=== PATIENT | male | born 1950 | race Caucasian/White ===

== ENCOUNTER 2018-02-24 17:59 | Emergency (ER) | payer MEDICARE, OTHER, SELFPAY ==
[2018-02-24 18:00] VITALS: BP 193/95; PULSE 68; RESP 18; TEMP 36.1; O2SAT 97; BMI 47.3
--- NOTE | 2018-02-24 18:25 | RAD_ITS ---
STUDY: X-RAY - RIGHT FOOT CLINICAL: Male, 67 years old. PAIN AND INFECTION TO RIGHT PLANTAR SURFACE FROM PUNCTURE WOUND TECHNIQUE: 3 view(s) of the foot. COMPARISON: None. FINDINGS: There is a calcaneal spur. Normal visualized subtalar, talonavicular, calcaneocuboid, tarsal and tarsometatarsal articulations. Erosive changes of the base of the second third and fourth metatarsal bone. This appears chronic. There is degenerative arthrosis of the metatarsophalangeal joint of the hallux . Normal tibial and fibular sesamoid bones. Normal interphalangeal joint of the great toe. There is a lucency through the base of the first distal phalanx. This may suggest a nondisplaced fracture. There is overlying soft tissue swelling. Normal second through fifth metatarsophalangeal joints. Normal interphalangeal joints and phalanges of the lesser toes. The soft tissue structures are unremarkable. RAD/Foot min 3 Views IMPRESSION: There is degenerative arthrosis of the metatarsophalangeal joint of the hallux . There is a lucency through the base of the first distal phalanx. This may suggest a nondisplaced fracture. There is overlying soft tissue swelling. Electronically Signed: Vidal Rea MD at 19:06 EDT , Service support ,
[2018-02-24] MEDS: Diphth,Pertuss(Acell),Tet Vac 0.5 ML Vial IM (18:56)
[2018-02-24 19:15] LABS: Absolute Lymphocyte Count 1.57 X10^3/ul (0.83-4.51); Basophil# 0.02 X10^3/uL; Basophil% 0.4 % (0-1); Eosinophil# 0.14 X10^3/uL; Eosinophils% 2.6 % (0-5); Hematocrit 43.3 % (40-54); Hemoglobin 13.7 g/dl (13.0-16.5); Lymphocyte # 1.57 X10^3/ul (4.0); Lymphocyte % 29.2 % (19-41); Mean Corp Hgb Conc 31.6 g/gl (32-36); Mean Corpuscular Hgb 28.5 pg (27.0-32.0); Mean Platelet Vol. 10.9 fl (6.2-12.0); Monocyte# 0.61 X10^3/uL; Monocyte% 11.3 % (0-10); Neutrophil # 3.03 X10^3/uL (2.7-7.7); Neutrophil % 56.3 % (47-70); POSITIVE COUNT NO; POSITIVE DIFFERENTIAL NO; POSITIVE MORPHOLOGY NO; Platelet Count 162 K/mm3 (150-450); RBC Distribution Width CV 14.8 % (11.6-14.6); RBC Distribution Width SD 48.2 fl (35.1-43.9); Red Blood Count 4.81 M/mm3 (4.6-6.2); White Blood Count 5.4 K/mm3 (4.4-11.0)
[2018-02-24 19:19] LABS: Anion Gap 7 (5-15); BUN 24 mg/dL (7-18); BUN/Creat Ratio 21.2 RATIO (10-20); Calcium,Total 8.8 mg/dL (8.5-10.1); Chloride 104 mmol/L (98-107); Creatinine, Serum 1.13 mg/dL (0.70-1.30); EST Glomerular Filtration Rate 69 mL/min (>60); Est Glom Filt Rate - Afr Amer 83 mL/min (>60); Estimated Creatinine Clearance 70.58 ml/min; Glucose 92 mg/dL (74-106); Potassium 3.5 mmol/L (3.5-5.1); Sodium Level 139 mmol/L (136-145)
--- NOTE | 2018-02-24 19:33 | ED.VISSUMM ---
- ER Visit Summary Date of Service: 02/24/18 Chief Complaint: Right foot pain after stepping on a deer horn 3 weeks ago History of Present Illness: The patient is a 67 M who presents because of the redness arch of his right foot after stepping on a deer horn 3 weeks ago. He denies fever, chills or night sweats. There is history rheumatic fever and he has aortic stenosis. He is on no immunosuppressive meds. He is not diabetic. He does report allergy to Bactrim as well as penicillin. Physical Examination: Vital signs noted. Afebrile. There is an abscess plantar surface right foot, arch. There is surrounding cellulitis with mild lymphangitis. There is no popliteal or inguinal lymphadenopathy. Heart is regular with a systolic murmur heard best over the aortic listening area with mild radiation into the neck. Lungs are clear to auscultation. DP pulses palpable. Please read written note for complete detail Test Results: Three-view x-ray of the foot was obtained interpreted by me as negative for foreign body or fracture. There is osteoarthritis. Emergency Department Course and Treatment: X-ray was obtained to evaluate for retained foreign body. The foot was prepped draped sterile manner. The area was anesthetized with 1% lidocaine by local infiltration and field block. Incision was made with odiferous purulent drainage noted. Blunt dissection was undertaken. Cavity was irrigated. Wick was placed. Treatment Plan: Because patient has allergy to penicillin and sulfa he was treated with clindamycin 300 mg 4 times a day. Disposition: Discharged to home with wound follow-up Tuesday and removal of wick. Impression: Abscess plantar surface right foot with surrounding cellulitis and lymphangitis initial encounter I&D foot abscess, complex This note was generated with [employer] dictation software. It may contain incorrect words, spelling, and punctuation that were not noted in review of the chart prior to signing ED Disposition - Plan for ED Patient: Disposition: Home or Assisted Living Chief Complaint: Cellulitis Instructions: ED Abscess IandD, Discharge Instructions for Cellulitis Prescriptions: Clindamycin HCl [Cleocin] 300 mg PO Q6H #28 capsule Referrals: Levar Reynaga DO [Primary Care Provider] - 2 Days for wound check Additional Instructions: Your prescription was electronically transmitted to [facility]
[2018-02-24 20:00] VITALS: BP 146/84; PULSE 79; RESP 18; O2SAT 95
[2018-02-24] MEDS: Clindamycin HCl 150 MG Capsule 300 MG PO (20:01)
== END 2018-02-24 20:02 | disposition home or self-care (01) ==
PROVIDERS: Emergency Provider Emergency Medicine; Family Provider Family Medicine; PCP Family Medicine
DX: L02.611 Cutaneous abscess of right foot (principal); L03.115 Cellulitis of right lower limb; I89.1 Lymphangitis; I35.0 Nonrheumatic aortic (valve) stenosis; R01.1 Cardiac murmur, unspecified; E66.9 Obesity, unspecified; M19.071 Primary osteoarthritis, right ankle and foot; I25.10 Atherosclerotic heart disease of native coronary artery without angina pectoris; I10 Essential (primary) hypertension; E78.00 Pure hypercholesterolemia, unspecified; I48.91 Unspecified atrial fibrillation; Z79.82 Long term (current) use of aspirin; Z79.01 Long term (current) use of anticoagulants; Z79.899 Other long term (current) drug therapy; Z72.0 Tobacco use
CPT/HCPCS: 10061; 10060; 73630; 80048; 85025; 90715; 99284

== ENCOUNTER → 2018-05-22 08:06 | Outpatient (CLI) | payer MEDICARE, OTHER, SELFPAY ==
[2018-05-22 10:20] LABS: AST(SGOT) 31 U/L (15-37); Alanine Aminotransfer ALT/SGPT 34 U/L (16-61); Albumin, Serum 3.6 g/dL (3.2-5.0); Alkaline Phosphatase 60 U/L (45-117); Bilirubin, Direct 0.09 mg/dL (0.00-0.30); CPK Total, Creatine Kinase 118 U/L (39-308); Creatinine, Serum 1.16 mg/dL (0.70-1.30); EST Glomerular Filtration Rate 67 mL/min (>60); Est Glom Filt Rate - Afr Amer 81 mL/min (>60); Globulin 3.8 g/dL (2.2-4.2); Protein, Total 7.4 g/dL (6.4-8.2)
[2018-05-23 16:49] LABS: Aldolase 5.2 U/L (3.3-10.3)
--- OUTSIDE RECORDS SUMMARY | 2018-07-24 15:37 | XMS RPT_ITS ---
:1950 Author Organization OHIP Care Team Providers Name Role Phone LEVAR REYNAGA DO Attending Unavailable LEVAR REYNAGA DO Primary Care Unavailable ANYA BAPTISTE DO Attending Unavailable DEAN DO, LEVAR D Primary Care Unavailable ARJUN BALLARD Attending Unavailable DEAN DO, LEVAR D Primary Care Unavailable ANYA BAPTISTE DO Attending Unavailable DEAN DO, LEVAR D Primary Care Unavailable MIGUEL PRATT Referring Unavailable MIGUEL PRATT Referring Unavailable MIGUEL PRATT Attending Unavailable AMMON CAI () Referring Unavailable NEHEMIAH, CORTNEY ESQUIVEL Admitting Unavailable NEHEMIAH, CORTNEY PA Attending Unavailable NEHEMIAH, CORTNEY PA Primary Care Unavailable NEHEMIAH, CORTNEY PA Admitting Unavailable NEHEMIAH, CORTNEY PA Attending Unavailable NEHEMIAH, CORTNEY PA Primary Care Unavailable CHAPIS BLANCAS Attending Unavailable CHAPIS BLANCAS Referring Unavailable Levar Reynaga Primary Care Unavailable DOCTOR, OUT OF TOWN Attending Unavailable Levar Reynaga Primary Care Unavailable Levar Reynaga Primary Care Unavailable Friend, Antonio Attending Unavailable PROBLEMS PROBLEMS DATE TYPE CONDITION / CODE ATTENDING STATUS SOURCE 05/22/2018 Unknown M79.10 - Myalgia, CHAPIS BLANCAS Active [place] unspecified site / Community M79.10(ICD-10) Hospital Repository 05/22/2018 Unknown R94.5 - Abnormal CHAPIS BLANCAS Active [facility] results of liver Community function studies / Hospital R94.5(ICD-10) Repository 05/22/2018 Unknown R94.4 - Abnormal CHAPIS BLANCAS Active [facility] results of kidney Community function studies / Hospital R94.4(ICD-10) Repository 11/24/2017 Admitting Pure DEAN DO, Active [facility] Diagnosis hypercholesterolemia LEVAR [facility] , unspecified / Repository E78.00(ICD-10) 11/14/2017 Active Unknown / JAMES Active [place] UNK(Unknown) MIGUEL L [facility] [place] Repository 11/14/2017 Active 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 / I25.10(ICD-10) 11/11/2017 Active 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 / [place] Z95.2(ICD-10) Repository 11/09/2017 Admitting Persons encountering CORTNEY CERNA Active [facility] in [facility] other specified Hospital circumstances / Repository Z7689(ICD-10) 11/09/2017 Principle Persons encountering NEHEMIAH, CORTNEY Active [facility] in [facility] other specified Hospital circumstances / Repository Z7689(ICD-10) PROCEDURES PROCEDURES No Procedure Records FoundRESULTS RESULTS LIVER PROFILE Collected: 05/22/2018 Status: F Source: [place] 8:19 AM [facility] REPOSITORY TYPE CODE TESTS RESULT OUT OF RANGE REFERENCE UNITS LAB L501.1500 6.4-8.2 g/dL Normal T PROT 7.4 LAB L501.1800 3.2-5.0 g/dL Normal ALB 3.6 LAB L501.1950 2.2-4.2 g/dL Normal GLOB 3.8 LAB L501.4100 15-37 U/L Normal AST 31 Result Comment: Slight Hemolysis, Result may be falsely increased. LAB L501.4305 45-117 U/L Normal ALK P 60 LAB L501.4405 16-61 U/L Normal ALT 34 LAB L501.4600 0.20-1.00 mg/dL Normal T BILI 0.40 LAB L501.4700 0.00-0.30 mg/dL Normal D BILI 0.09 Performed By: #### L500.3400, L501.1105, L501.3620 #### [facility] [address] [place], [place], [id number] SERUM CREATININE AND Collected: 05/22/2018 Status: F Source: [place] GFR 8:19 AM [facility] REPOSITORY TYPE CODE TESTS RESULT OUT OF RANGE REFERENCE UNITS LAB L501.1100 0.70-1.30 mg/dL Normal 1.16 CREAT,SERUM Result Comment: The validity of the calculated GFR AND GFRAA in patients over 70 years has not been determined. Clinical correlation is essential. LAB L501.1110 >60 mL/min Normal EST GFR 67 Result Comment: Non- GFR Calc LAB L501.1115 >60 mL/min Normal EST GFR - AA 81 Result Comment: GFR Calc Performed By: #### L500.3400, L501.1105, L501.3620 #### [facility] [address] [place], [place], [id number] CPK TOTAL, CREATINE Collected: 05/22/2018 Status: F Source: [place] KINASE 8:19 AM [facility] REPOSITORY TYPE CODE TESTS RESULT OUT OF RANGE REFERENCE UNITS LAB L501.3620 39-308 U/L Normal CPK TOTAL 118 Performed By: #### L500.3400, L501.1105, L501.3620 #### [facility] [place], [address] ALDOLASE Collected: 05/22/2018 Status: F Source: [place] 8:19 AM [facility] REPOSITORY TYPE CODE TESTS RESULT OUT OF RANGE REFERENCE UNITS LAB L3100.7000 3.3-10.3 U/L Normal ALDOLASE 2030 5.2 Result Comment: Performed at: - [facility] [id number] Director [place] Sales: Kvng Hanks PhD, Phone: [phone] Performed By: #### L3100.7000 #### [facility] (refer to report for specific site) refer to report for address and phone number CT ABDOMEN/PELVIS Observed: 05/15/2018 Status: F Source: JAMI W/CONTRAST 12:59 PM [facility] REPOSITORY ORIGINAL CT ABDOMEN/PELVIS W/CONTRAST CLINICAL STATEMENT: hematochezia COMPARISON: None FINDINGS: This exam was performed according to our departmental dose- optimization program which includes automated exposure control, adjustment of the mA and/or kVp according to patient size and/or use of iterati ve reconstruction technique where applicable. The lung bases are clear. There is a small hiatal hernia. No suspicious findings seen of the unenhanced liver. The gallbladder, pancreas, adrenal glands and spleen appear unremarkable. No radiodense calculus or obstructive uropathy seen. No suspicious renal lesions. There is no filling defect in the bladder. There is no inflammation identified of the colon or the small bowel. Fat-containing hernia noted near the umbilicus. There are bilateral fat-containing hernias A LEFT hip arthroplasty visualized. There is no destructive osseous lesion. Degenerative changes seen in the spine and sacroiliac joints. IMPRESSION: 1. The cause for the hematochezia is not visualized on the current exam. CT is not a sensitive evaluation for colon neoplasms. 2. No inflammatory process of the bowel 3. Other incidental findings, as above Interpreted By: Kelton Reed MD Preliminary Report By: Kelton Reed MD Electronically Signed By: Kelton Reed MD Dictated Date: 05/15/2018 2:10:03 PM Prelim Date: 05/15/2018 2:10:03 PM Sign Date: 05/15/2018 2:14:17 PM .GFR Collected: 05/15/2018 Status: F Source: [facility] 11:55 AM [facility] REPOSITORY TYPE CODE TESTS RESULT OUT OF REFERENCE UNITS RANGE LAB GFRAA(LOINC ml/min/1.73 ) sqm GFR 73 Mauritian Result Comment: GFR Population mean for , Non- Americans Ages 20-29 = 116 mL/min/1.73 sq.m. Ages 30-39 = 107 mL/min/1.73 sq.m. Ages 40-49 = 99 mL/min/1.73 sq.m. Ages 50-59 = 93 mL/min/1.73 sq.m. Ages 60-69 = 85 mL/min/1.73 sq.m. Ages 70+ = 75 mL/min/1.73 sq.m. Chronic Kidney Disease: Less than 60 mL/min/1.73 square meters End Stage Renal Disease: Less than 15 mL/min/1.73 square meters LAB GFRNO(LOINC) ml/min/1.73sqm GFR Non- 61 Result Comment: GFR Population mean for , Non- Americans Ages 20-29 = 116 mL/min/1.73 sq.m. Ages 30-39 = 107 mL/min/1.73 sq.m. Ages 40-49 = 99 mL/min/1.73 sq.m. Ages 50-59 = 93 mL/min/1.73 sq.m. Ages 60-69 = 85 mL/min/1.73 sq.m. Ages 70+ = 75 mL/min/1.73 sq.m. Chronic Kidney Disease: Less than 60 mL/min/1.73 square meters End Stage Renal Disease: Less than 15 mL/min/1.73 square meters Performed By: #### GFR, URIC, CMP, MG, VIDH, ESR, CRP, ASON, BENJAMÍN, RF #### [address] [address] URIC Collected: 05/15/2018 Status: F Source: [facility] 11:55 AM [facility] REPOSITORY TYPE CODE TESTS RESULT OUT OF RANGE REFERENCE UNITS LAB URIC(LOINC) 3.5-7.2 mg/dL High Uric Acid 7.5 Lvl Performed By: #### GFR, URIC, CMP, MG, VIDH, ESR, CRP, ASON, BENJAMÍN, RF #### [address] [address] CMP Collected: 05/15/2018 Status: F Source: [facility] 11:55 AM [facility] REPOSITORY TYPE CODE TESTS RESULT OUT OF REFERENCE UNITS RANGE LAB GLU(LOINC) 80-115 mg/dL Glucose Level 101 LAB NA(LOINC) 136-145 mmol/L Sodium Level 141 LAB K(LOINC) 3.5-5.1 mmol/L Potassium Level 4.4 LAB CL(LOINC) 98-107 mmol/L Chloride 103 LAB CO2(LOINC) 23-31 mmol/L CO2 High 32 LAB EBAL(LOINC mEq/L ) Electrolyte Balance 6.0 LAB BUN(LOINC) 7-18 mg/dL BUN High 25 LAB CRE(LOINC) 0.70-1.30 mg/dL Creatinine Lvl (s) 1.20 Result Comment: Called result to Johnna in Radiology @05/15/2018 12:19:25 EST LAB BC(LOINC) 7-27 ratio BUN/Creatinine Ratio 21 LAB CA(LOINC) 8.4-10.2 mg/dL Calcium Lvl 9.5 LAB PROT(LOINC) 6.4-8.2 G/dL Total Protein 7.0 LAB ALB(LOINC) 3.4-4.8 G/dL Albumin Level 3.8 LAB GLB(LOINC) G/dL Globulin 3.2 LAB AG(LOINC) 1.1-2.5 ratio A/G Ratio 1.2 LAB BILT(LOINC) 0.2-1.0 mg/dL Bili Total 0.7 LAB AP(LOINC) 40-135 U/L Alk Phos 55 LAB AST(LOINC) 10-40 U/L AST/SGOT 25 LAB ALT(LOINC) 10-35 U/L ALT/SGPT High 37 Performed By: #### GFR, URIC, CMP, MG, VIDH, ESR, CRP, ASON, BENJAMÍN, RF #### [address] [address] MG Collected: 05/15/2018 Status: F Source: [facility] 11:55 AM [facility] REPOSITORY TYPE CODE TESTS RESULT OUT OF REFERENCE UNITS RANGE LAB MG(LOINC) 1.8-2.4 mg/dL Magnesium Lvl 2.3 Performed By: #### GFR, URIC, CMP, MG, VIDH, ESR, CRP, ASON, BENJAMÍN, RF #### [place] [address] VIDH Collected: 05/15/2018 Status: F Source: [facility] 11:55 AM [facility] REPOSITORY TYPE CODE TESTS RESULT OUT OF RANGE REFERENCE UNITS LAB VIDH(LOINC) ng/mL Vit. D 26 25-Hydroxy Result Comment: Interpretive Values Based on Total 25(OH)D: Severe Deficiency <20 ng/mL Mild to Moderate Deficiency 20-30 ng/mL Optimum Levels 30-100 ng/mL Toxicity Possible >100 ng/mL Performed By: #### GFR, URIC, CMP, MG, VIDH, ESR, CRP, ASON, BENJAMÍN, RF #### [place] [address] ESR Collected: 05/15/2018 Status: F Source: [facility] 11:55 AM [facility] REPOSITORY TYPE CODE TESTS RESULT OUT OF REFERENCE UNITS RANGE LAB ESR(LOINC) 0-20 mm/hr Erythrocyte Sed Rate 6 Performed By: #### GFR, URIC, CMP, MG, VIDH, ESR, CRP, ASON, BENJAMÍN, RF #### [place] [address] CRP Collected: 05/15/2018 Status: F Source: [facility] 11:55 AM [facility] REPOSITORY TYPE CODE TESTS RESULT OUT OF REFERENCE UNITS RANGE LAB CRP(LOINC) <=0.80 mg/dL High C-Reactive 2.93 Protein Performed By: #### GFR, URIC, CMP, MG, VIDH, ESR, CRP, ASON, BENJAMÍN, RF #### [place] [address] ASON Collected: 05/15/2018 Status: F Source: [facility] 11:55 AM [facility] REPOSITORY TYPE CODE TESTS RESULT OUT OF RANGE REFERENCE UNITS LAB ASO(LOINC) <=116 IU/mL High ASO 209 Performed By: #### GFR, URIC, CMP, MG, VIDH, ESR, CRP, ASON, BENJAMÍN, RF #### [place] [address] BENJAMÍN Collected: 05/15/2018 Status: F Source: [facility] 11:55 AM [facility] REPOSITORY TYPE CODE TESTS RESULT OUT OF RANGE REFERENCE UNITS LAB BENJAMÍN(LOINC) Neg 40 BENJAMÍN Neg 40 Performed By: #### GFR, URIC, CMP, MG, VIDH, ESR, CRP, ASON, BENJAMÍN, RF #### [place] [id number] [address] [place] [address] RF Collected: 05/15/2018 Status: F Source: [facility] 11:55 AM [facility] REPOSITORY TYPE CODE TESTS RESULT OUT OF REFERENCE UNITS RANGE LAB RF(LOINC) Rheumatoid <6.0 Factor Result Comment: RF IgM Antibody by Enzyme Immunoassay: Negative < or = 6 Positive > 6 A positive result indicates the presence of RF antibodies and suggests the possibility of rheumatoid arthritis. A negative result indicates no RF IgM antibody or levels below the negative cut-off of the assay. Results of this assay should be used in conjunction with clinical findings and other serological tests. These results were obtained with the [employer] QUANTA Lite RF IgM SULLY. RF IgM values obtained with different manufacturers' assay methods may not be used interchangeably. The magnitude of the reported IgM levels cannot be correlated to an endpoint titer. Performed By: #### GFR, URIC, CMP, MG, VIDH, ESR, CRP, ASON, BENJAMÍN, RF #### [place] [address] URIC Collected: 04/29/2018 Status: F Source: [facility] 10:40 AM [facility] REPOSITORY TYPE CODE TESTS RESULT OUT OF RANGE REFERENCE UNITS LAB URIC(LOINC) 3.5-7.2 mg/dL High Uric Acid 8.3 Lvl Performed By: #### URIC, CMP, GFR, MG, VIDH, RF, CRP, ASON, BENJAMÍN #### [place] [address] CMP Collected: 04/29/2018 Status: F Source: [facility] 10:40 AM [facility] REPOSITORY TYPE CODE TESTS RESULT OUT OF REFERENCE UNITS RANGE LAB GLU(LOINC) 80-115 mg/dL Glucose Level 95 LAB NA(LOINC) 136-145 mmol/L Sodium Level 139 LAB K(LOINC) 3.5-5.1 mmol/L Potassium Level 4.2 LAB CL(LOINC) 98-107 mmol/L Chloride 101 LAB CO2(LOINC) 23-31 mmol/L CO2 29 LAB EBAL(LOINC mEq/L ) Electrolyte Balance 9.0 LAB BUN(LOINC) 7-18 mg/dL BUN High 26 LAB CRE(LOINC) 0.70-1.30 mg/dL Creatinine High Lvl (s) 1.38 LAB BC(LOINC) 7-27 ratio BUN/Creatinine 19 Ratio LAB CA(LOINC) 8.4-10.2 mg/dL Calcium Lvl 9.4 LAB PROT(LOINC 6.4-8.2 G/dL ) Total Protein 7.2 LAB ALB(LOINC) 3.4-4.8 G/dL Albumin Level 3.8 LAB GLB(LOINC) G/dL Globulin 3.4 LAB AG(LOINC) 1.1-2.5 ratio A/G Ratio 1.1 LAB BILT(LOINC 0.2-1.0 mg/dL ) Bili Total 0.8 LAB AP(LOINC) 40-135 U/L Alk Phos 72 LAB AST(LOINC) 10-40 U/L AST/SGOT 39 LAB ALT(LOINC) 10-35 U/L ALT/SGPT High 44 Performed By: #### URIC, CMP, GFR, MG, VIDH, RF, CRP, ASON, BENJAMÍN #### [place] [address] .GFR Collected: 04/29/2018 Status: F Source: [facility] 10:40 AM [facility] REPOSITORY TYPE CODE TESTS RESULT OUT OF REFERENCE UNITS RANGE LAB GFRAA(LOINC ml/min/1.73 ) sqm GFR 62 Mauritian Result Comment: GFR Population mean for , Non- Americans Ages 20-29 = 116 mL/min/1.73 sq.m. Ages 30-39 = 107 mL/min/1.73 sq.m. Ages 40-49 = 99 mL/min/1.73 sq.m. Ages 50-59 = 93 mL/min/1.73 sq.m. Ages 60-69 = 85 mL/min/1.73 sq.m. Ages 70+ = 75 mL/min/1.73 sq.m. Chronic Kidney Disease: Less than 60 mL/min/1.73 square meters End Stage Renal Disease: Less than 15 mL/min/1.73 square meters LAB GFRNO(LOINC) ml/min/1.73sqm GFR Non- 52 Result Comment: GFR Population mean for , Non- Americans Ages 20-29 = 116 mL/min/1.73 sq.m. Ages 30-39 = 107 mL/min/1.73 sq.m. Ages 40-49 = 99 mL/min/1.73 sq.m. Ages 50-59 = 93 mL/min/1.73 sq.m. Ages 60-69 = 85 mL/min/1.73 sq.m. Ages 70+ = 75 mL/min/1.73 sq.m. Chronic Kidney Disease: Less than 60 mL/min/1.73 square meters End Stage Renal Disease: Less than 15 mL/min/1.73 square meters Performed By: #### URIC, CMP, GFR, MG, VIDH, RF, CRP, ASON, BENJAMÍN #### [address] [address] MG Collected: 04/29/2018 Status: F Source: [employer] 10:40 AM [facility] REPOSITORY TYPE CODE TESTS RESULT OUT OF REFERENCE UNITS RANGE LAB MG(LOINC) 1.8-2.4 mg/dL Magnesium Lvl 2.0 Performed By: #### URIC, CMP, GFR, MG, VIDH, RF, CRP, ASON, BENJAMÍN #### [address] [address] VIDH Collected: 04/29/2018 Status: F Source: [employer] 10:40 AM [facility] REPOSITORY TYPE CODE TESTS RESULT OUT OF RANGE REFERENCE UNITS LAB VIDH(LOINC) ng/mL Vit. D 11 25-Hydroxy Result Comment: Interpretive Values Based on Total 25(OH)D: Severe Deficiency <20 ng/mL Mild to Moderate Deficiency 20-30 ng/mL Optimum Levels 30-100 ng/mL Toxicity Possible >100 ng/mL Performed By: #### URIC, CMP, GFR, MG, VIDH, RF, CRP, ASON, BENJAMÍN #### [address] [address] RF Collected: 04/29/2018 Status: F Source: [employer] 10:40 AM [facility] REPOSITORY TYPE CODE TESTS RESULT OUT OF REFERENCE UNITS RANGE LAB RF(LOINC) Rheumatoid <6.0 Factor Result Comment: RF IgM Antibody by Enzyme Immunoassay: Negative < or = 6 Positive > 6 A positive result indicates the presence of RF antibodies and suggests the possibility of rheumatoid arthritis. A negative result indicates no RF IgM antibody or levels below the negative cut-off of the assay. Results of this assay should be used in conjunction with clinical findings and other serological tests. These results were obtained with the [employer] QUANTA Lite RF IgM SULLY. RF IgM values obtained with different manufacturers' assay methods may not be used interchangeably. The magnitude of the reported IgM levels cannot be correlated to an endpoint titer. Performed By: #### URIC, CMP, GFR, MG, VIDH, RF, CRP, ASON, BENJAMÍN #### [place] [address] CRP Collected: 04/29/2018 Status: F Source: [facility] 10:40 AM [facility] REPOSITORY TYPE CODE TESTS RESULT OUT OF REFERENCE UNITS RANGE LAB CRP(LOINC) <=0.80 mg/dL High C-Reactive 0.82 Protein Performed By: #### URIC, CMP, GFR, MG, VIDH, RF, CRP, ASON, BENJAMÍN #### [place] [address] ASON Collected: 04/29/2018 Status: F Source: [facility] 10:40 AM [facility] REPOSITORY TYPE CODE TESTS RESULT OUT OF RANGE REFERENCE UNITS LAB ASO(LOINC) <=116 IU/mL High ASO 248 Performed By: #### URIC, CMP, GFR, MG, VIDH, RF, CRP, ASON, BENJAMÍN #### [place] [address] BENJAMÍN Collected: 04/29/2018 Status: F Source: [facility] 10:40 AM [facility] REPOSITORY TYPE CODE TESTS RESULT OUT OF RANGE REFERENCE UNITS LAB BENJAMÍN(LOINC) Neg 40 BENJAMÍN Neg 40 Performed By: #### URIC, CMP, GFR, MG, VIDH, RF, CRP, ASON, BENJAMÍN #### [place] [address] ESR Collected: 04/29/2018 Status: F Source: [facility] 10:40 AM [facility] REPOSITORY TYPE CODE TESTS RESULT OUT OF REFERENCE UNITS RANGE LAB ESR(LOINC) 0-20 mm/hr Erythrocyte Sed Rate 6 Performed By: #### ESR #### [facility] [address] [place] [address] EMERGENCY DEPARTMENT Observed: 02/24/2018 Status: F Source: [facility]ERE[facility] SUMMARY 7:39 PM [facility] REPOSITORY [facility] Medical Records Department [address] [place] [address] Emergency Department Summary 02/24/18 1933 MR#: [id number] Acct: [id number] Name: ALIREZA HILARIO Rep #: [id number] : 1950 67 From: Antonio Friend MD PCP: Levar Reynaga DO Status: REG ER - ER Visit Summary Date of Service: 02/24/18 Chief Complaint: Right foot pain after stepping on a deer horn 3 weeks ago History of Present Illness: The patient is a 67 M who presents because of the redness arch of his right foot after stepping on a deer horn 3 weeks ago. He denies fever, chills or night sweats. There is history rheumatic fever and he has aortic stenosis. He is on no immunosuppressive meds. He is not diabetic. He does report allergy to Bactrim as well as penicillin. Physical Examination: Vital signs noted. Afebrile. There is an abscess plantar surface right foot, arch. There is surrounding cellulitis with mild lymphangitis. There is no popliteal or inguinal lymphadenopathy. Heart is regular with a systolic murmur heard best over the aortic listening area with mild radiation into the neck. Lungs are clear to auscultation. DP pulses palpable. Please read written note for complete detail Test Results: Three-view x-ray of the foot was obtained interpreted by me as negative for foreign body or fracture. There is osteoarthritis. Emergency Department Course and Treatment: X-ray was obtained to evaluate for retained foreign body. The foot was prepped draped sterile manner. The area was anesthetized with 1% lidocaine by local infiltration and field block. Incision was made with odiferous purulent drainage noted. Blunt dissection was undertaken. Cavity was irrigated. Wick was placed. Treatment Plan: Because patient has allergy to penicillin and sulfa he was treated with clindamycin 300 mg 4 times a day. Disposition: Discharged to home with wound follow-up Tuesday and removal of wick. Impression: Abscess plantar surface right foot with surrounding cellulitis and lymphangitis initial encounter I AND D foot abscess, complex This note was generated with [employer] dictation software. It may contain incorrect words, spelling, and punctuation that were not noted in review of the chart prior to signing ED Disposition - Plan for ED Patient: Disposition: Home or Assisted Living Chief Complaint: Cellulitis Instructions: ED Abscess IandD, Discharge Instructions for Cellulitis Prescriptions: Clindamycin HCl [Cleocin] 300 mg PO Q6H #28 capsule Referrals: Levar Reynaga DO [Primary Care Provider] - 2 Days for wound check Additional Instructions: Your prescription was electronically transmitted to [facility] What to do if you have Problems For any increased pain, shortness of breath, bleeding, nausea or vomiting, chest pain, or any unexpected problems, contact your Primary Care Provider. Call [facility] ([phone]) or report to the closest Emergency Room. Call 911 if necessary. 02/24/181938 <Electronically signed by Antonio Friend MD> Date Antonio Friend MD Cosigner Signature (If Indicated): Date CC: Levar Reynaga DO CBC W/DIFF, AUTOMATED Collected: 02/24/2018 Status: F Source: [place] 6:55 PM [facility] REPOSITORY TYPE CODE TESTS RESULT OUT OF RANGE REFERENCE UNITS LAB L100.1000 4.4-11.0 K/mm3 Normal WBC 5.4 LAB L100.1200 4.6-6.2 M/mm3 Normal RBC 4.81 LAB L100.1300 13.0-16.5 g/dl Normal HGB 13.7 LAB L100.1400 40-54 % Normal HCT 43.3 LAB L100.1500 80-94 fL Normal MCV 90.0 LAB L100.1600 27.0-32.0 pg Normal MCH 28.5 LAB L100.1700 32-36 g/gl Low MCHC 31.6 LAB L100.1810 11.6-14.6 % High RDW CV 14.8 LAB L100.1820 35.1-43.9 fl High RDW SD 48.2 LAB L100.1900 150-450 K/mm3 Normal PLT 162 LAB L100.2000 6.2-12.0 fl Normal MPV 10.9 LAB L100.2100 47-70 % Normal NEUT% 56.3 LAB L100.2200 19-41 % Normal LY% 29.2 LAB L100.2300 0-10 % High MONO% 11.3 LAB L100.2400 0-5 % Normal EO% 2.6 LAB L100.2500 0-1 % Normal BASO% 0.4 LAB L100.2550 0.0-0.9 % Normal IM GRAN % 0.200 Result Comment: IG% - Immature Granulocytes (promyelocytes, myelocytes and metamyelocytes) > 1% indicates that a LEFT SHIFT is Present. LAB L100.2620 2.0-7.7 X10 3/uL Normal Absolute Neut 3.0 LAB L100.2720 0.83-4.51 X10 3/ul Normal Absolute Lymph 1.57 Performed By: #### L100.0100 #### [facility] [address] [place], [address] BASIC METABOLIC Collected: 02/24/2018 Status: F Source: [place] PROFILE ([facility]) 6:55 PM [facility] REPOSITORY TYPE CODE TESTS RESULT OUT OF RANGE REFERENCE UNITS LAB L501.0100 74-106 mg/dL Normal GLU 92 Result Comment: Please note revised GLUCOSE reference range effective 2017. LAB L501.1000 7-18 mg/dL High BUN 24 LAB L501.1100 0.70-1.30 mg/dL Normal CREAT,SERUM 1.13 Result Comment: The validity of the calculated GFR AND GFRAA in patients over 70 years has not been determined. Clinical correlation is essential. LAB L501.1110 >60 mL/min Normal EST GFR 69 Result Comment: Non- GFR Calc LAB L501.1115 >60 mL/min Normal EST GFR - AA 83 Result Comment: GFR Calc LAB L501.1255 ml/min Normal Estimated CRCL 70.58 LAB L501.1300 10-20 RATIO High BUN/CRE 21.2 LAB L501.2200 8.5-10 mg/dL Normal .1 CA 8.8 LAB L501.5300 136-14 mmol/L Normal 5 NA 139 LAB L501.5600 3.5-5. mmol/L Normal 1 K 3.5 LAB L501.5900 98-107 mmol/L Normal CL 104 LAB L501.6100 21.0-3 mmol/L Normal 2.0 CO2 28.0 LAB L501.6200 5-15 Normal GAP 7 Performed By: #### L500.2500 #### [facility] [address] [facility] [place], [address] FOOT MIN 3 VIEWS Observed: 02/24/2018 Status: F Source: [place] 6:24 PM [facility] REPOSITORY [facility] Imaging Services [address] [place] [address] Foot min 3 Views MR#: [id number] Acct: [id number] Name: ALIREZA HILARIO Rep #: [id number] : 1950 M 67 From: Vidal Rea MD PCP: Levar Reynaga DO Status: REG ER Study: Foot min 3 Views Date of Exam: 02/24/18 Exam# [id number] Ordering Dr: Antonio Friend MD STUDY: X-RAY - RIGHT FOOT CLINICAL: Male, 67 years old. PAIN AND INFECTION TO RIGHT PLANTAR SURFACE FROM PUNCTURE WOUND TECHNIQUE: 3 view(s) of the foot. COMPARISON: None. FINDINGS: There is a calcaneal spur. Normal visualized subtalar, talonavicular, calcaneocuboid, tarsal and tarsometatarsal articulations. Erosive changes of the base of the second third and fourth metatarsal bone. This appears chronic. There is degenerative arthrosis of the metatarsophalangeal joint of the hallux . Normal tibial and fibular sesamoid bones. Normal interphalangeal joint of the great toe. There is a lucency through the base of the first distal phalanx. This may suggest a nondisplaced fracture. There is overlying soft tissue swelling. Normal second through fifth metatarsophalangeal joints. Normal interphalangeal joints and phalanges of the lesser toes. The soft tissue structures are unremarkable. RAD/Foot min 3 Views IMPRESSION: There is degenerative arthrosis of the metatarsophalangeal joint of the hallux . There is a lucency through the base of the first distal phalanx. This may suggest a nondisplaced fracture. There is overlying soft tissue swelling. Electronically Signed: Vidal Rea MD at 19:06 EDT , Service support , CC: Levar Reynaga DO; Antonio Friend MD Behavioral Medical Director: Signed PROGRESS Observed: 12/07/2017 Status: COMPLETED Source: [place] 3:30 PM [facility] REPOSITORY HNO ID: [id number] Author: Robert (Clemente) Harper Service: (none) Author Type: Resident Type: Progress Notes Filed: 12/24/2017 1:14 PM Note Text: [facility] Initial Office Visit Consultation is requested by: SELF PCP: Levar Reynaga DO [address] [place] [address] CEREBROVASCULAR HISTORY History of Recent Event: Alireza Hilario is a 67 year old right-handed male with PMH of: - HTN, on Losartan 100mg / HCTZ 25mg / Metoprolol 25mg BID - Afib, on Eliquis 5mg BID / ASA 81mg - Aortic stenosis, s/p bovine AVR 01/2016 - CAD, s/p CABG x 3 - HLD, on Lipitor 40mg 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 He needs clearance for work. Date of last event: January 08, 2016 History of event: Acute onset fatigue, R leg weakness, R facial droop. 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 Has had no repeat stroke symptoms. Retired October. 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 The DOT is requesting clearance from Neurology. Questions for visit: Is he cleared for work - will need letter stating he may drive truck PAST MEDICAL HISTORY Diagnosis Date - Aortic valve stenosis aortic stenosis - Bleeding ulcer when patient was 17-18 years old - CAD (coronary artery disease) 08/16/13 - CVA (cerebral vascular accident) ([facility]) 01/08/16 s/p TPA - Dyslipidemia - History of left hip replacement - Hypertension PAST SURGICAL HISTORY Procedure Laterality Date - PAST SURGICAL HISTORY OF 2009 left inguinal hernia repair - PAST SURGICAL HISTORY OF 02/25/2016 aorticv valve replacement - PAST SURGICAL HISTORY OF 02/25/2016 CABG x 3 FAMILY HISTORY Problem Relation Age of Onset - other (heart attack) Father 47 age 55 - other (osteoarthritis) Mother age 95 - other (stents; pacemaker) Brother 56 alive age 66 - other (healthy) Sister Social History Marital status: Spouse name: Years of education: Number of children: Occupational History 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 hydroCHLOROthiazide (HYDRODIURIL, ESIDRIX) 25 mg tablet Take 1 tablet by mouth once daily. ELIQUIS 5 mg tab(s) Take 1 tablet by mouth twice daily. pantoprazole DR (PROTONIX) 40 mg tablet Take 40 mg by mouth once daily. diclofenac sodium (VOLTAREN) 1 % topical gel 4 g four times daily. As Directed. losartan (COZAAR) 100 mg tablet Take 100 mg by mouth once daily. aspirin 81 mg chewable tablet Take 2 tablets by mouth once daily. (Patient taking differently: Take 81 mg by mouth once daily.) atorvastatin (LIPITOR) 40 mg tablet Take 1 tablet by mouth daily at bedtime. metoprolol tartrate, short acting, (LOPRESSOR) 25 mg tablet Take 1 tablet by mouth every 12 hours. fluticasone (FLONASE) 50 mcg/actuation nasal spray Use 2 Sprays in each nostril as needed. venlafaxine XR (EFFEXOR XR) 150 mg 24 hr capsule Take 1 capsule by mouth daily with breakfast. No current facility-administered medications for this visit. MEDICATIONS Current Outpatient Prescriptions: cyclobenzaprine (FLEXERIL) 5 mg tablet Take 5 mg by mouth once daily. Disp: Rfl: hydroCHLOROthiazide (HYDRODIURIL, ESIDRIX) 25 mg tablet Take 1 tablet by mouth once daily. Disp: 90 tablet Rfl: 1 ELIQUIS 5 mg tab(s) Take 1 tablet by mouth twice daily. Disp: 60 tablet Rfl: [address] (PROTONIX) 40 mg tablet Take 40 mg by mouth once daily. Disp: Rfl: 2 diclofenac sodium (VOLTAREN) 1 % topical gel 4 g four times daily. As Directed. Disp: 4 Tube Rfl: 2 losartan (COZAAR) 100 mg tablet Take 100 mg by mouth once daily. Disp: Rfl: aspirin 81 mg chewable tablet Take 2 tablets by mouth once daily. (Patient taking differently: Take 81 mg by mouth once daily.) Disp: Rfl: 0 atorvastatin (LIPITOR) 40 mg tablet Take 1 tablet by mouth daily at bedtime. Disp: Rfl: 0 metoprolol tartrate, short acting, (LOPRESSOR) 25 mg tablet Take 1 tablet by mouth every 12 hours. Disp: Rfl: 0 fluticasone (FLONASE) 50 mcg/actuation nasal spray Use 2 Sprays in each nostril as needed. Disp: Rfl: 0 venlafaxine XR (EFFEXOR XR) 150 mg 24 hr capsule Take 1 capsule by mouth daily with breakfast. Disp: Rfl: 0 No current facility-administered medications for this visit. REVIEW OF SYSTEMS ALLERGIES Allergen Reactions - Methotrexate Hives - Penicillins Hives - Sulfa (Sulfonamide * Hives PAIN ASSESSMENT: Negative for pain, history of chronic pain, or current treatment for a chronic pain condition. GENERAL: No weight loss, malaise or fevers HEENT: No changes in hearing or vision, no nose bleeds or other nasal problems. NECK: Negative for lumps, goiter, pain and significant neck swelling RESPIRATORY: Negative for cough, wheezing or shortness of breath. CARDIOVASCULAR: Negative for chest pain, leg swelling or palpitations. GI: Negative for abdominal discomfort, blood in stools or black stools or change in bowel habits. : No history of dysuria, frequency or incontinence. MUSCULOSKELETAL: Negative for joint pain or swelling, back pain or muscle pain. NEURO: SEE HPI PHYSICAL EXAMINATION BP 154/76 Pulse 64 Resp 18 Ht 182.9 cm (6') Wt (!) 144.2 kg (318 lb) BMI 43.13 kg/m? General: Obese male, Well-developed, well-nourished, in no acute distress. HEENT: Normocephalic, atraumatic. Sclerae anicteric. Oropharynx clear. Neck: No carotid bruit. Heart: Regular rate and rhythm, S1 S2, no murmurs. Lungs: Clear to auscultation bilaterally. Abdomen: Abdomen soft, non-tender. Bowel sounds normal. No masses, organomegaly. Extremities: No edema, cyanosis, or clubbing. 2+ dorsalis pedis pulses bilaterally. Skin: No rash or ecchymoses. Neurological: Awake, alert, oriented to person, place, and time. Speech fluent, no dysarthria. Naming, repetition, recall, comprehension, calculation intact. Good attention and insight into illness. Cranial Nerves: PERRL, extraocular movements intact without nystagmus. Visual lucero full. Fundoscopic examination normal with sharp optic discs bilaterally. Facial sensation and movements normal and symmetric. Palate elevates equal bilaterally. Tongue midline. Trapezius strength 5/5 bilaterally. Motor: Normal bulk and tone. Strength 5/5 throughout. No pronator drift or tremor. Sensation: Intact light touch, pinprick, temperature, proprioception, and vibration. Coordination: Rapid alternating movements symmetric bilaterally. Moadvj-vi-phcd, oelo-qk-ynln without dysmetria bilaterally. Reflexes: 2+/4 reflexes symmetric bilaterally. Plantar response is flexor bilaterally. Gait: Normal spaced and stable without assistance. Tandem gait is stable. LABS Cholesterol: Cholesterol, Total (mg/dL) Date Value 04/19/2016 210 LDL Cholesterol (mg/dL) Date Value 04/19/2016 119 HDL Cholesterol (mg/dL) Date Value 04/19/2016 59 Triglyceride (mg/dL) Date Value 04/19/2016 160 Diabetes: Hemoglobin A1C (%) Date Value 01/09/2016 5.3 IMAGING MRI brain wo, 01/09/16: Very subtle L cerebral DWI and FLAIR hyperintensity with hypointensity on ADC MRA head AND neck wo, 01/09/16: Unremarkable CEREBROVASCULAR CATEGORIES Ischemic Stroke: Cardioembolism- High-risk source(s) SHIVAM Hilario is a 67yo RHM with PMH of HTN, CAD, s/p CABG x 3, Afib, (on Eliquis 5mg BID AND ASA 81mg), aortic stenosis, s/p bovine AVR (01/2016), and HLD, (on Lipitor 40mg) 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 Neurologic exam at the time of stroke was notable for RLE weakness, RFD. CTH was normal. MRA was unremarkable. MRI revealed subtle hyperintensity of the L hemisphere. Symptoms resolved with IV tPA. Etiology of stroke thought to be cardioembolic given patient's Afib, and lack of anticoagulation. PLAN 1. Continue ASA 81mg qd 2. Continue Eliquis 5mg BID for AVR 3. Continue Lipitor 40mg qd 4. Recommend updated lipid panel / A1C LDL goal <100 May be done with PCP 5. 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 Patient advised to follow up with Stroke Neurology in 1 year Discussion, counseling, coordination of care > 50% of 60 minutes. Questions asked/ answered. Follow-up with results/ adherence to plan/ continued education. Plan discussed with attending physician, Dr. Ruel Saleem MD Department of Neurology, PGY2 Pager: [phone] December 07, 2017, 5:05 PM CC SELF Levar Reynaga, [address] [place] [address] CNOV Observed: 12/07/2017 Status: COMPLETED Source: [place] 3:10 PM [facility] [place] REPOSITORY Office Visit ([id number]) ALIREZA HILARIO ([id number]) 1950 M Date Time Provider Department 12/07/17 3:10 PM CEREBROVASCULAR LONGITUDINAL PROVIDER [id number] During your visit today, we recorded the following information about you: Pulse Respiration Blood pressure Weight 64/minute 18/minute 154/76 144.2 kg Height 1.829 m Robert Saleem MD 12/24/2017 1:14 PM Signed [facility] Initial Office Visit Consultation is requested by: SELF PCP: Levar Reynaga, DO [address] [place] [address] CEREBROVASCULAR HISTORY History of Recent Event: Alireza Hilario is a 67 year old right-handed male with PMH of: - HTN, on Losartan 100mg / HCTZ 25mg / Metoprolol 25mg BID - Afib, on Eliquis 5mg BID / ASA 81mg - Aortic stenosis, s/p bovine AVR 01/2016 - CAD, s/p CABG x 3 - HLD, on Lipitor 40mg 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 He needs clearance for work. Date of last event: January 08, 2016 History of event: Acute onset fatigue, R leg weakness, R facial droop. 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 Has had no repeat stroke symptoms. Retired October. 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 The DOT is requesting clearance from Neurology. Questions for visit: Is he cleared for work - will need letter stating he may drive truck PAST MEDICAL HISTORY Diagnosis Date - Aortic valve stenosis aortic stenosis - Bleeding ulcer when patient was 17-18 years old - CAD (coronary artery disease) 08/16/13 - CVA (cerebral vascular accident) ([facility]) 01/08/16 s/p TPA - Dyslipidemia - History of left hip replacement - Hypertension PAST SURGICAL HISTORY Procedure Laterality Date - PAST SURGICAL HISTORY OF 2009 left inguinal hernia repair - PAST SURGICAL HISTORY OF 02/25/2016 aorticv valve replacement - PAST SURGICAL HISTORY OF 02/25/2016 CABG x 3 FAMILY HISTORY Problem Relation Age of Onset - other (heart attack) Father 47 age 55 - other (osteoarthritis) Mother age 95 - other (stents; pacemaker) Brother 56 alive age 66 - other (healthy) Sister Social History Marital status: Spouse name: Years of education: Number of children: Occupational History 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 hydroCHLOROthiazide (HYDRODIURIL, ESIDRIX) 25 mg tablet Take 1 tablet by mouth once daily. ELIQUIS 5 mg tab(s) Take 1 tablet by mouth twice daily. pantoprazole DR (PROTONIX) 40 mg tablet Take 40 mg by mouth once daily. diclofenac sodium (VOLTAREN) 1 % topical gel 4 g four times daily. As Directed. losartan (COZAAR) 100 mg tablet Take 100 mg by mouth once daily. aspirin 81 mg chewable tablet Take 2 tablets by mouth once daily. (Patient taking differently: Take 81 mg by mouth once daily.) atorvastatin (LIPITOR) 40 mg tablet Take 1 tablet by mouth daily at bedtime. metoprolol tartrate, short acting, (LOPRESSOR) 25 mg tablet Take 1 tablet by mouth every 12 hours. fluticasone (FLONASE) 50 mcg/actuation nasal spray Use 2 Sprays in each nostril as needed. venlafaxine XR (EFFEXOR XR) 150 mg 24 hr capsule Take 1 capsule by mouth daily with breakfast. No current facility-administered medications for this visit. MEDICATIONS Current Outpatient Prescriptions: cyclobenzaprine (FLEXERIL) 5 mg tablet Take 5 mg by mouth once daily. Disp: Rfl: hydroCHLOROthiazide (HYDRODIURIL, ESIDRIX) 25 mg tablet Take 1 tablet by mouth once daily. Disp: 90 tablet Rfl: 1 ELIQUIS 5 mg tab(s) Take 1 tablet by mouth twice daily. Disp: 60 tablet Rfl: [address] (PROTONIX) 40 mg tablet Take 40 mg by mouth once daily. Disp: Rfl: 2 diclofenac sodium (VOLTAREN) 1 % topical gel 4 g four times daily. As Directed. Disp: 4 Tube Rfl: 2 losartan (COZAAR) 100 mg tablet Take 100 mg by mouth once daily. Disp: Rfl: aspirin 81 mg chewable tablet Take 2 tablets by mouth once daily. (Patient taking differently: Take 81 mg by mouth once daily.) Disp: Rfl: 0 atorvastatin (LIPITOR) 40 mg tablet Take 1 tablet by mouth daily at bedtime. Disp: Rfl: 0 metoprolol tartrate, short acting, (LOPRESSOR) 25 mg tablet Take 1 tablet by mouth every 12 hours. Disp: Rfl: 0 fluticasone (FLONASE) 50 mcg/actuation nasal spray Use 2 Sprays in each nostril as needed. Disp: Rfl: 0 venlafaxine XR (EFFEXOR XR) 150 mg 24 hr capsule Take 1 capsule by mouth daily with breakfast. Disp: Rfl: 0 No current facility-administered medications for this visit. REVIEW OF SYSTEMS ALLERGIES Allergen Reactions - Methotrexate Hives - Penicillins Hives - Sulfa (Sulfonamide * Hives PAIN ASSESSMENT: Negative for pain, history of chronic pain, or current treatment for a chronic pain condition. GENERAL: No weight loss, malaise or fevers HEENT: No changes in hearing or vision, no nose bleeds or other nasal problems. NECK: Negative for lumps, goiter, pain and significant neck swelling RESPIRATORY: Negative for cough, wheezing or shortness of breath. CARDIOVASCULAR: Negative for chest pain, leg swelling or palpitations. GI: Negative for abdominal discomfort, blood in stools or black stools or change in bowel habits. : No history of dysuria, frequency or incontinence. MUSCULOSKELETAL: Negative for joint pain or swelling, back pain or muscle pain. NEURO: SEE HPI PHYSICAL EXAMINATION BP 154/76 Pulse 64 Resp 18 Ht 182.9 cm (6') Wt (!) 144.2 kg (318 lb) BMI 43.13 kg/m? General: Obese male, Well-developed, well-nourished, in no acute distress. HEENT: Normocephalic, atraumatic. Sclerae anicteric. Oropharynx clear. Neck: No carotid bruit. Heart: Regular rate and rhythm, S1 S2, no murmurs. Lungs: Clear to auscultation bilaterally. Abdomen: Abdomen soft, non-tender. Bowel sounds normal. No masses, organomegaly. Extremities: No edema, cyanosis, or clubbing. 2+ dorsalis pedis pulses bilaterally. Skin: No rash or ecchymoses. Neurological: Awake, alert, oriented to person, place, and time. Speech fluent, no dysarthria. Naming, repetition, recall, comprehension, calculation intact. Good attention and insight into illness. Cranial Nerves: PERRL, extraocular movements intact without nystagmus. Visual lucero full. Fundoscopic examination normal with sharp optic discs bilaterally. Facial sensation and movements normal and symmetric. Palate elevates equal bilaterally. Tongue midline. Trapezius strength 5/5 bilaterally. Motor: Normal bulk and tone. Strength 5/5 throughout. No pronator drift or tremor. Sensation: Intact light touch, pinprick, temperature, proprioception, and vibration. Coordination: Rapid alternating movements symmetric bilaterally. Dwcskq-yj-ufvm, nuid-yu-ouap without dysmetria bilaterally. Reflexes: 2+/4 reflexes symmetric bilaterally. Plantar response is flexor bilaterally. Gait: Normal spaced and stable without assistance. Tandem gait is stable. LABS Cholesterol: Cholesterol, Total (mg/dL) Date Value 04/19/2016 210 LDL Cholesterol (mg/dL) Date Value 04/19/2016 119 HDL Cholesterol (mg/dL) Date Value 04/19/2016 59 Triglyceride (mg/dL) Date Value 04/19/2016 160 Diabetes: Hemoglobin A1C (%) Date Value 01/09/2016 5.3 IMAGING MRI brain wo, 01/09/16: Very subtle L cerebral DWI and FLAIR hyperintensity with hypointensity on ADC MRA head AND neck wo, 01/09/16: Unremarkable CEREBROVASCULAR CATEGORIES Ischemic Stroke: Cardioembolism- High-risk source(s) SHIVAM Hilario is a 67yo RHM with PMH of HTN, CAD, s/p CABG x 3, Afib, (on Eliquis 5mg BID AND ASA 81mg), aortic stenosis, s/p bovine AVR (01/2016), and HLD, (on Lipitor 40mg) 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 Neurologic exam at the time of stroke was notable for RLE weakness, RFD. CTH was normal. MRA was unremarkable. MRI revealed subtle hyperintensity of the L hemisphere. Symptoms resolved with IV tPA. Etiology of stroke thought to be cardioembolic given patient's Afib, and lack of anticoagulation. PLAN 1. Continue ASA 81mg qd 2. Continue Eliquis 5mg BID for AVR 3. Continue Lipitor 40mg qd 4. Recommend updated lipid panel / A1C LDL goal <100 May be done with PCP 5. 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 Patient advised to follow up with Stroke Neurology in 1 year Discussion, counseling, coordination of care > 50% of 60 minutes. Questions asked/ answered. Follow-up with results/ adherence to plan/ continued education. Plan discussed with attending physician, Dr. Ruel Saleem MD Department of Neurology, PGY2 Pager: [phone] December 07, 2017, 5:05 PM CC SELF Levar Reynaga, [address] [place] [address] Robert Saleem MD 12/07/2017 5:14 PM Addendum 1. You should continue ASA 81mg qd 2. You should continue Eliquis 5mg BID for AVR 3. You should continue Lipitor 40mg qd 4. You should have updated tests including a lipid panel and A1C regularly LDL goal <100 May be done with PCP 5. 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 Referring Provider: SELF [[id number]] Allergies As of Date: 12/07/2017 Noted Allergy Reaction METHOTREXATE 06/10/2016 4 - Hives PENICILLINS 08/16/2013 4 - Hives SULFA (SULFONAMIDE ANTIBIOTICS) 08/16/2013 4 - Hives Date Reviewed: 12/07/2017 Reviewed by: Janet Darling Ma - Fully Assessed Reason for Visit: New Patient [172] Primary Visit Diagnosis:Cerebrovascular accident (CVA) due to embolism of precerebral artery (HCC) [I63.10] Prescriptions as of 12/07/2017 Sig: CYCLOBENZAPRINE 5 MG TABLET Take 5 mg by mouth once daily. HYDROCHLOROTHIAZIDE 25 MG TAB* Take 1 tablet by mouth once d* X ELIQUIS 5 MG TABLET Take 1 tablet by mouth twice * PANTOPRAZOLE 40 MG TABLET,DEL* Take 40 mg by mouth once alesha* DICLOFENAC 1 % TOPICAL GEL 4 g four times daily. As Dire* LOSARTAN 100 MG TABLET Take 100 mg by mouth once denae* ASPIRIN 81 MG CHEWABLE TABLET Take 2 tablets by mouth once * Patient taking differently: Take 81 mg by mouth once alesha* ATORVASTATIN 40 MG TABLET Take 1 tablet by mouth daily * METOPROLOL TARTRATE 25 MG TAB* Take 1 tablet by mouth every * FLUTICASONE 50 MCG/ACTUATION * Use 2 Sprays in each nostril * VENLAFAXINE ER 150 MG CAPSULE* Take 1 capsule by mouth daily* Problem List As Of Date 12/07/2017 Noted Resolved SUMMARY [V999.95] INVALID FOR* Priority: A More... CAD (coronary artery disease), [place] coronary *INVALID FOR* Priority: D More... More... Atrial fibrillation (HCC) [I48.91] INVALID FOR* Priority: B More... LV dysfunction [I51.9] INVALID FOR*09/20/2013 Priority: C More... Hypertension [I10] INVALID FOR* Priority: D More... Hyperlipidemia [E78.5] INVALID FOR* Priority: E More... More... More... Acquired leg length discrepancy [M21.70] INVALID FOR* History of arterial ischemic stroke [Z86.73] INVALID FOR* Priority: B More... Discharge planning issues [Z02.9] INVALID FOR* Priority: K More... Preop testing [Z01.818] INVALID FOR* More... Aortic stenosis [I35.0] INVALID FOR*02/27/2016 Priority: A More... Obesity [E66.9] INVALID FOR* Priority: J More... S/P CABG x 3 [Z95.1] INVALID FOR*02/27/2016 Priority: C More... Shock (HCC) [R57.9] INVALID FOR*02/26/2016 More... Obstructive sleep apnea [G47.33] INVALID FOR* Priority: F More... Acute blood loss anemia [D62] INVALID FOR*02/26/2016 Thrombocytopenia (HCC) [D69.6] INVALID FOR*02/27/2016 Priority: G More... Postprocedural hypotension [I95.81] INVALID FOR*02/26/2016 On mechanically assisted ventilation (HCC) [Z99*INVALID FOR*02/26/2016 Atelectasis, bilateral [J98.11] INVALID FOR*02/27/2016 SUMMARY INVALID FOR* Priority: Mild More... DISPOSITION AND FOLLOW-UP INVALID FOR* Priority: M More... Fluid overload [E87.70] INVALID FOR* Priority: B More... Hyperglycemia [R73.9] INVALID FOR* Priority: E More... Leg pain, inferior [M79.606] INVALID FOR* BMI 45.0-49.9, adult (HCC) [Z68.42] INVALID FOR* Cellulitis and abscess of leg [L03.119, L02.419]INVALID FOR* Priority: C More... Spontaneous hematoma of lower leg [R23.3] INVALID FOR* Priority: A More... H/O aortic valve replacement [Z95.2] INVALID FOR* Priority: B More... Morbid obesity due to excess calories (HCC) [E6*INVALID FOR* Other instructions from your clinician: 1. You should continue ASA 81mg qd 2. You should continue Eliquis 5mg BID for AVR 3. You should continue Lipitor 40mg qd 4. You should have updated tests including a lipid panel and A1C regularly LDL goal <100 May be done with PCP 5. 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 Encounter Status:Closed by ROBERT SALEEM on 12/24/17 Chart Close Cosign Accepted by: RUEL MACDONALD MD[[id number]] Chart Close Cosign Accepted on: TueDec 30, 2017 11:20 AM LIPID Collected: 11/24/2017 Status: F Source: [facility] 1:42 PM [facility] REPOSITORY TYPE CODE TESTS RESULT OUT OF REFERENCE UNITS RANGE LAB CHOL(LOINC 0-200 mg/dL ) Cholesterol 192 Result Comment: Cholesterol Reference Interval: Less than 200 Desirable 200-239 Borderline high risk 240 and above High risk LAB TRIG(LOINC) 0-150 mg/dL Triglycerides High 200 Result Comment: Triglyceride Reference Interval: Less than 150 Normal 150-199 Borderline high risk 200-499 High risk 500 or higher Very high risk LAB HD(LOINC) 40-60 mg/dL HDL Cholesterol 60 LAB LDL(LOINC) 0-130 mg/dL LDL Cholesterol 92 Performed By: #### LIPID #### [facility] [address] [place] [address] CNOV Observed: 11/14/2017 Status: COMPLETED Source: [place] 2:45 PM [facility] REPOSITORY Office Visit (SERG) ALIREZA HILARIO ([id number]) 1950 M Date Time Provider Department 11/14/17 2:45 PM MIGUEL PRATT During your visit today, we recorded the following information about you: Pulse Respiration Blood pressure Weight 72/minute minute 142/82 144.2 kg Height 1.829 m Manuela PRATT MD 11/15/2017 10:54 AM Signed [facility] [place] [facility] Department of Cardiovascular Medicine SECTION OF CARDIOVASCULAR IMAGING OUTPATIENT VISIT DATE November 14, 2017 OUTPATIENT VISIT TYPE ESTABLISHED PRIMARY CARE PHYSICIAN: Levar Reynaga DO [address] [place] [address] CHIEF COMPLAINT: f/u HISTORY OF PRESENT ILLNESS: Mr. Hilario is a 67 year old male who presents today for follow- up visit. Since his last visit, he states that he has no angina or shortness of breath. 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 He has lost weight. Manuela PRATT MD PAST MEDICAL HISTORY Diagnosis Date - Aortic valve stenosis aortic stenosis - Bleeding ulcer when patient was 17-18 years old - CAD (coronary artery disease) 08/16/13 - CVA (cerebral vascular accident) ([facility]) 01/08/16 s/p TPA - Dyslipidemia - Hypertension PAST SURGICAL HISTORY Procedure Laterality Date - PAST SURGICAL HISTORY OF 2009 left inguinal hernia repair - PAST SURGICAL HISTORY OF 02/25/2016 aorticv valve replacement - PAST SURGICAL HISTORY OF 02/25/2016 CABG x 3 SOCIAL HISTORY Social History Substance Use Topics - Smoking status: Never Smoker - Smokeless tobacco: Former User Quit date: 09/16/2003 - Alcohol use 1.5 oz/week 1 Shots of liquor, 1 Cans of beer per week Comment: socially FAMILY HISTORY Problem Relation Age of Onset - heart attack [OTHER] Father 47 age 55 - osteoarthritis [OTHER] Mother age 95 - stents; pacemaker [OTHER] Brother 56 alive age 66 - healthy [OTHER] Sister ALLERGIES: ALLERGIES Allergen Reactions - Methotrexate Hives - Penicillins Hives - Sulfa (Sulfonamide * Hives MEDICATIONS: cyclobenzaprine (FLEXERIL) 5 mg tablet Take 5 mg by mouth once daily. hydroCHLOROthiazide (HYDRODIURIL, ESIDRIX) 25 mg tablet Take 1 tablet by mouth once daily. ELIQUIS 5 mg tab(s) Take 1 tablet by mouth twice daily. pantoprazole DR (PROTONIX) 40 mg tablet Take 40 mg by mouth once daily. diclofenac sodium (VOLTAREN) 1 % topical gel 4 g four times daily. As Directed. losartan (COZAAR) 100 mg tablet Take 100 mg by mouth once daily. aspirin 81 mg chewable tablet Take 2 tablets by mouth once daily. atorvastatin (LIPITOR) 40 mg tablet Take 1 tablet by mouth daily at bedtime. metoprolol tartrate, short acting, (LOPRESSOR) 25 mg tablet Take 1 tablet by mouth every 12 hours. fluticasone (FLONASE) 50 mcg/actuation nasal spray Use 2 Sprays in each nostril as needed. venlafaxine XR (EFFEXOR XR) 150 mg 24 hr capsule Take 1 capsule by mouth daily with breakfast. REVIEW OF SYSTEMS: See HPI. PHYSICAL EXAMINATION: BP 142/82 Pulse 72 Resp 12 Ht 182.9 cm (6') Wt (!) 144.2 kg (318 lb) SpO2 100% BMI 43.13 kg/m? General: Well appearing, in no acute distress, speaking in complete sentences. Lungs: Clear to auscultation bilaterally, no wheezing or rhonchi. Heart: Regular rhythm, PMI not displaced, S1, S2 normal, no S3, no S4, no heaves, no rub and no murmur. Abdomen: Soft, nontender, bowel sounds normal, no palpable organomegaly, no bruits. Extremities: No peripheral edema . Grade 2/4 distal pulses bilaterally. CARDIOVASCULAR MEDICINE TESTING: Stress Test:Echocardiogram: - The exercise stress echo was non-diagnostic at 75 % of MPHR (6.9 METS). Fair functional capacity for age and gender. No regional wall motion abnormality seen at heart rate achieved. - The left ventricle is normal in size. Left ventricular systolic function is normal. EF = 66 ? 5% (2D biplane) Definity contrast used for endocardial border detection. Left ventricular diastolic function was not evaluated due to prosthetic ?valve. - The right ventricle is normal in size. Right ventricular systolic function is normal. - Trifecta prosthetic aortic valve (size #23). There is no aortic valve regurgitation. The peak gradient is 27 mmHg, the mean gradient is 14 mmHg and the dimensionless valve index is 0.50. - Full echo done on 11/11/2017. - Post stress: AVR gradients increase up to 52/28mmHg. I have personally reviewed the Stress Test: Echocardiogram. IMPRESSION: Mr. Hilario is a 67 year old male s/p AVR and CABG in 02/24/2017. He is currently asymptomatic. Stress test today he did not reach heart rate but no symptoms or wall motion abnormalities seen. 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 Target blood pressure should be 120-130mmHg for systolic BP. Continue with yearly follow up I personally interviewed, confirmed and edited the above information as obtained by others. CONTACT INFORMATION: Manuela PRATT MD Referring Provider: AMMON CAI) [[id number]] Allergies As of Date: 11/14/2017 Noted Allergy Reaction METHOTREXATE 06/10/2016 4 - Hives PENICILLINS 08/16/2013 4 - Hives SULFA (SULFONAMIDE ANTIBIOTICS) 08/16/2013 4 - Hives Date Reviewed: 11/14/2017 Reviewed by: Juanis Suresh) Avtar - Fully Assessed Primary Visit Diagnosis:S/P AVR (aortic valve replacement) [Z95.2] Other Visit Diagnosis:Hx of CABG [Z95.1] Prescriptions as of 11/14/2017 Sig: CYCLOBENZAPRINE 5 MG TABLET Take 5 mg by mouth once daily. HYDROCHLOROTHIAZIDE 25 MG TAB* Take 1 tablet by mouth once d* ELIQUIS 5 MG TABLET Take 1 tablet by mouth twice * PANTOPRAZOLE 40 MG TABLET,DEL* Take 40 mg by mouth once alesha* DICLOFENAC 1 % TOPICAL GEL 4 g four times daily. As Dire* LOSARTAN 100 MG TABLET Take 100 mg by mouth once denae* ASPIRIN 81 MG CHEWABLE TABLET Take 2 tablets by mouth once * Patient taking differently: Take 81 mg by mouth once alesha* ATORVASTATIN 40 MG TABLET Take 1 tablet by mouth daily * METOPROLOL TARTRATE 25 MG TAB* Take 1 tablet by mouth every * FLUTICASONE 50 MCG/ACTUATION * Use 2 Sprays in each nostril * VENLAFAXINE ER 150 MG CAPSULE* Take 1 capsule by mouth daily* Problem List As Of Date 11/14/2017 Noted Resolved SUMMARY [V999.95] INVALID FOR* Priority: A More... CAD (coronary artery disease), [place] coronary *INVALID FOR* Priority: D More... More... Atrial fibrillation (HCC) [I48.91] INVALID FOR* Priority: B More... LV dysfunction [I51.9] INVALID FOR*09/20/2013 Priority: C More... Hypertension [I10] INVALID FOR* Priority: D More... Hyperlipidemia [E78.5] INVALID FOR* Priority: E More... More... More... Acquired leg length discrepancy [M21.70] INVALID FOR* History of arterial ischemic stroke [Z86.73] INVALID FOR* Priority: B More... Discharge planning issues [Z02.9] INVALID FOR* Priority: K More... Preop testing [Z01.818] INVALID FOR* More... Aortic stenosis [I35.0] INVALID FOR*02/27/2016 Priority: A More... Obesity [E66.9] INVALID FOR* Priority: J More... S/P CABG x 3 [Z95.1] INVALID FOR*02/27/2016 Priority: C More... Shock (HCC) [R57.9] INVALID FOR*02/26/2016 More... Obstructive sleep apnea [G47.33] INVALID FOR* Priority: F More... Acute blood loss anemia [D62] INVALID FOR*02/26/2016 Thrombocytopenia (HCC) [D69.6] INVALID FOR*02/27/2016 Priority: G More... Postprocedural hypotension [I95.81] INVALID FOR*02/26/2016 On mechanically assisted ventilation (HCC) [Z99*INVALID FOR*02/26/2016 Atelectasis, bilateral [J98.11] INVALID FOR*02/27/2016 SUMMARY INVALID FOR* Priority: Mild More... DISPOSITION AND FOLLOW-UP INVALID FOR* Priority: M More... Fluid overload [E87.70] INVALID FOR* Priority: B More... Hyperglycemia [R73.9] INVALID FOR* Priority: E More... Leg pain, inferior [M79.606] INVALID FOR* BMI 45.0-49.9, adult (HCC) [Z68.42] INVALID FOR* Cellulitis and abscess of leg [L03.119, L02.419]INVALID FOR* Priority: C More... Spontaneous hematoma of lower leg [R23.3] INVALID FOR* Priority: A More... H/O aortic valve replacement [Z95.2] INVALID FOR* Priority: B More... Morbid obesity due to excess calories (HCC) [E6*INVALID FOR* Encounter Status:Closed by SYDNI PRATT MD on 11/15/17 PROGRESS Observed: 11/14/2017 Status: COMPLETED Source: [place] 12:33 PM [facility] REPOSITORY HNO ID: [id number] Author: Miguel Pratt Service: (none) Author Type: Physician Type: Progress Notes Filed: 11/15/2017 10:54 AM Note Text: [facility] [place] [facility] Department of Cardiovascular Medicine SECTION OF CARDIOVASCULAR IMAGING OUTPATIENT VISIT DATE November 14, 2017 OUTPATIENT VISIT TYPE ESTABLISHED PRIMARY CARE PHYSICIAN: Levar Reynaga DO [address] [place] [address] CHIEF COMPLAINT: f/u HISTORY OF PRESENT ILLNESS: Mr. Hilario is a 67 year old male who presents today for follow- up visit. Since his last visit, he states that he has no angina or shortness of breath. 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 He has lost weight. Manuela PRATT MD PAST MEDICAL HISTORY Diagnosis Date - Aortic valve stenosis aortic stenosis - Bleeding ulcer when patient was 17-18 years old - CAD (coronary artery disease) 08/16/13 - CVA (cerebral vascular accident) ([facility]) 01/08/16 s/p TPA - Dyslipidemia - Hypertension PAST SURGICAL HISTORY Procedure Laterality Date - PAST SURGICAL HISTORY OF 2009 left inguinal hernia repair - PAST SURGICAL HISTORY OF 02/25/2016 aorticv valve replacement - PAST SURGICAL HISTORY OF 02/25/2016 CABG x 3 SOCIAL HISTORY Social History Substance Use Topics - Smoking status: Never Smoker - Smokeless tobacco: Former User Quit date: 09/16/2003 - Alcohol use 1.5 oz/week 1 Shots of liquor, 1 Cans of beer per week Comment: socially FAMILY HISTORY Problem Relation Age of Onset - heart attack [OTHER] Father 47 age 55 - osteoarthritis [OTHER] Mother age 95 - stents; pacemaker [OTHER] Brother 56 alive age 66 - healthy [OTHER] Sister ALLERGIES: ALLERGIES Allergen Reactions - Methotrexate Hives - Penicillins Hives - Sulfa (Sulfonamide * Hives MEDICATIONS: cyclobenzaprine (FLEXERIL) 5 mg tablet Take 5 mg by mouth once daily. hydroCHLOROthiazide (HYDRODIURIL, ESIDRIX) 25 mg tablet Take 1 tablet by mouth once daily. ELIQUIS 5 mg tab(s) Take 1 tablet by mouth twice daily. pantoprazole DR (PROTONIX) 40 mg tablet Take 40 mg by mouth once daily. diclofenac sodium (VOLTAREN) 1 % topical gel 4 g four times daily. As Directed. losartan (COZAAR) 100 mg tablet Take 100 mg by mouth once daily. aspirin 81 mg chewable tablet Take 2 tablets by mouth once daily. atorvastatin (LIPITOR) 40 mg tablet Take 1 tablet by mouth daily at bedtime. metoprolol tartrate, short acting, (LOPRESSOR) 25 mg tablet Take 1 tablet by mouth every 12 hours. fluticasone (FLONASE) 50 mcg/actuation nasal spray Use 2 Sprays in each nostril as needed. venlafaxine XR (EFFEXOR XR) 150 mg 24 hr capsule Take 1 capsule by mouth daily with breakfast. REVIEW OF SYSTEMS: See HPI. PHYSICAL EXAMINATION: BP 142/82 Pulse 72 Resp 12 Ht 182.9 cm (6') Wt (!) 144.2 kg (318 lb) SpO2 100% BMI 43.13 kg/m? General: Well appearing, in no acute distress, speaking in complete sentences. Lungs: Clear to auscultation bilaterally, no wheezing or rhonchi. Heart: Regular rhythm, PMI not displaced, S1, S2 normal, no S3, no S4, no heaves, no rub and no murmur. Abdomen: Soft, nontender, bowel sounds normal, no palpable organomegaly, no bruits. Extremities: No peripheral edema . Grade 2/4 distal pulses bilaterally. CARDIOVASCULAR MEDICINE TESTING: Stress Test:Echocardiogram: - The exercise stress echo was non-diagnostic at 75 % of MPHR (6.9 METS). Fair functional capacity for age and gender. No regional wall motion abnormality seen at heart rate achieved. - The left ventricle is normal in size. Left ventricular systolic function is normal. EF = 66 ? 5% (2D biplane) Definity contrast used for endocardial border detection. Left ventricular diastolic function was not evaluated due to prosthetic ?valve. - The right ventricle is normal in size. Right ventricular systolic function is normal. - Trifecta prosthetic aortic valve (size #23). There is no aortic valve regurgitation. The peak gradient is 27 mmHg, the mean gradient is 14 mmHg and the dimensionless valve index is 0.50. - Full echo done on 11/11/2017. - Post stress: AVR gradients increase up to 52/28mmHg. I have personally reviewed the Stress Test: Echocardiogram. IMPRESSION: Mr. Hilario is a 67 year old male s/p AVR and CABG in 02/24/2017. He is currently asymptomatic. Stress test today he did not reach heart rate but no symptoms or wall motion abnormalities seen. 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 Target blood pressure should be 120-130mmHg for systolic BP. Continue with yearly follow up I personally interviewed, confirmed and edited the above information as obtained by others. CONTACT INFORMATION: Manuela PRATT MD PROGRESS Observed: 11/14/2017 Status: COMPLETED Source: [place] 11:39 AM [facility] HNO ID: [id number] Author: Chapis (Rn) ALFREDO Davis Service: (none) Author Type: Registered Nurse Type: Progress Notes Filed: 11/14/2017 12:41 PM Note Text: 11/14/2017 11:39 AM IV Access: IV IV Site: right Wrist IV GAUGE 24 gauge IV Removal Date 11/14/17 Time 1140 Reactions: WNL Order reviewed by nurse:yes Medications: Definity - dosage 2ml diluted in 8ml ns total dose 4ml ivp during stress echo exam Reaction: No CNOV Observed: 11/14/2017 Status: COMPLETED Source: [place] 11:00 AM [facility] REPOSITORY Office Visit (CAFLMN) ALIREZA HILARIO ([id number]) 1950 M Date Time Provider Department 11/14/17 11:00 AM EXERCISE ECHO J1-5 CAFLMN During your visit today, we recorded the following information about you: Chapis Davis RN, RN 11/14/2017 12:41 PM Signed 11/14/2017 11:39 AM IV Access: IV IV Site: right Wrist IV GAUGE 24 gauge IV Removal Date 11/14/17 Time 1140 Reactions: WNL Order reviewed by nurse:yes Medications: Definity - dosage 2ml diluted in 8ml ns total dose 4ml ivp during stress echo exam Reaction: No Referring Provider: MIGUEL PRATT [[id number]] Allergies As of Date: 11/14/2017 Noted Allergy Reaction METHOTREXATE 06/10/2016 4 - Hives PENICILLINS 08/16/2013 4 - Hives SULFA (SULFONAMIDE ANTIBIOTICS) 08/16/2013 4 - Hives Date Reviewed: 11/14/2017 Reviewed by: Juanis Suresh) Avtar - Fully Assessed Reason for Visit: Procedure [88] Cmt: echo with definity Visit Diagnosis:Coronary artery disease involving [place] coronary artery of [place] heart, angina presence unspecified [I25.10] Order(s):STRESS ECHO TREADMILL [[id number]] Order #: [id number]. #:[id number]: [id number] Prescriptions as of 11/14/2017 Sig: HYDROCHLOROTHIAZIDE 25 MG TAB* Take 1 tablet by mouth once d* ELIQUIS 5 MG TABLET Take 1 tablet by mouth twice * PANTOPRAZOLE 40 MG TABLET,DEL* Take 40 mg by mouth once alesha* DICLOFENAC 1 % TOPICAL GEL 4 g four times daily. As Dire* LOSARTAN 100 MG TABLET Take 100 mg by mouth once denae* ASPIRIN 81 MG CHEWABLE TABLET Take 2 tablets by mouth once * Patient taking differently: Take 81 mg by mouth once alesha* ATORVASTATIN 40 MG TABLET Take 1 tablet by mouth daily * METOPROLOL TARTRATE 25 MG TAB* Take 1 tablet by mouth every * FLUTICASONE 50 MCG/ACTUATION * Use 2 Sprays in each nostril * VENLAFAXINE ER 150 MG CAPSULE* Take 1 capsule by mouth daily* Problem List As Of Date 11/14/2017 Noted Resolved SUMMARY [V999.95] INVALID FOR* Priority: A More... CAD (coronary artery disease), [place] coronary *INVALID FOR* Priority: D More... More... Atrial fibrillation (HCC) [I48.91] INVALID FOR* Priority: B More... LV dysfunction [I51.9] INVALID FOR*09/20/2013 Priority: C More... Hypertension [I10] INVALID FOR* Priority: D More... Hyperlipidemia [E78.5] INVALID FOR* Priority: E More... More... More... Acquired leg length discrepancy [M21.70] INVALID FOR* History of arterial ischemic stroke [Z86.73] INVALID FOR* Priority: B More... Discharge planning issues [Z02.9] INVALID FOR* Priority: K More... Preop testing [Z01.818] INVALID FOR* More... Aortic stenosis [I35.0] INVALID FOR*02/27/2016 Priority: A More... Obesity [E66.9] INVALID FOR* Priority: J More... S/P CABG x 3 [Z95.1] INVALID FOR*02/27/2016 Priority: C More... Shock (HCC) [R57.9] INVALID FOR*02/26/2016 More... Obstructive sleep apnea [G47.33] INVALID FOR* Priority: F More... Acute blood loss anemia [D62] INVALID FOR*02/26/2016 Thrombocytopenia (HCC) [D69.6] INVALID FOR*02/27/2016 Priority: G More... Postprocedural hypotension [I95.81] INVALID FOR*02/26/2016 On mechanically assisted ventilation (HCC) [Z99*INVALID FOR*02/26/2016 Atelectasis, bilateral [J98.11] INVALID FOR*02/27/2016 SUMMARY INVALID FOR* Priority: Mild More... DISPOSITION AND FOLLOW-UP INVALID FOR* Priority: M More... Fluid overload [E87.70] INVALID FOR* Priority: B More... Hyperglycemia [R73.9] INVALID FOR* Priority: E More... Leg pain, inferior [M79.606] INVALID FOR* BMI 45.0-49.9, adult (HCC) [Z68.42] INVALID FOR* Cellulitis and abscess of leg [L03.119, L02.419]INVALID FOR* Priority: C More... Spontaneous hematoma of lower leg [R23.3] INVALID FOR* Priority: A More... H/O aortic valve replacement [Z95.2] INVALID FOR* Priority: B More... Morbid obesity due to excess calories (HCC) [E6*INVALID FOR* Encounter Status:Closed by CHAPIS DAVIS on 11/14/17 CNOV Observed: 11/11/2017 Status: COMPLETED Source: [place] 3:40 PM [facility] REPOSITORY Office Visit (CFLAMN) ALIREZA HILARIO ([id number]) 1950 M Date Time Provider Department 11/11/17 3:40 PM ECHO A17 CARD MAIN CFLAMN During your visit today, we recorded the following information about you: Nick Palacios RN, RN 11/11/2017 3:04 PM Signed 11/11/2017 3:03 PM IV Access: IV IV Site: left Hand IV GAUGE 24 gauge IV Removal Date 11/11/17 Time 1431 Reactions: WNL Order reviewed by nurse:yes Medications: Definity - dosage 1.5 ml givenslow iV Reaction: No Referring Provider: MIGUEL PRATT [[id number]] Allergies As of Date: 11/11/2017 Noted Allergy Reaction METHOTREXATE 06/10/2016 4 - Hives PENICILLINS 08/16/2013 4 - Hives SULFA (SULFONAMIDE ANTIBIOTICS) 08/16/2013 4 - Hives Date Reviewed: 11/11/2017 Reviewed by: Nick (Rn) ALFREDO Palacios - Fully Assessed Reason for Visit: IV Medication Administration [149] Cmt: Echo with definity Visit Diagnosis:S/P AVR (aortic valve replacement) [Z95.2] Order(s):ECHO [[id number]] Order #: [id number]: 1 Prescriptions as of 11/11/2017 Sig: HYDROCHLOROTHIAZIDE 25 MG TAB* Take 1 tablet by mouth once d* ELIQUIS 5 MG TABLET Take 1 tablet by mouth twice * PANTOPRAZOLE 40 MG TABLET,DEL* Take 40 mg by mouth once alesha* DICLOFENAC 1 % TOPICAL GEL 4 g four times daily. As Dire* LOSARTAN 100 MG TABLET Take 100 mg by mouth once denae* ASPIRIN 81 MG CHEWABLE TABLET Take 2 tablets by mouth once * Patient taking differently: Take 81 mg by mouth once alesha* ATORVASTATIN 40 MG TABLET Take 1 tablet by mouth daily * METOPROLOL TARTRATE 25 MG TAB* Take 1 tablet by mouth every * FLUTICASONE 50 MCG/ACTUATION * Use 2 Sprays in each nostril * VENLAFAXINE ER 150 MG CAPSULE* Take 1 capsule by mouth daily* Problem List As Of Date 11/11/2017 Noted Resolved SUMMARY [V999.12] INVALID FOR* Priority: A More... CAD (coronary artery disease), [place] coronary *INVALID FOR* Priority: D More... More... Atrial fibrillation (HCC) [I48.91] INVALID FOR* Priority: B More... LV dysfunction [I51.9] INVALID FOR*09/20/2013 Priority: C More... Hypertension [I10] INVALID FOR* Priority: D More... Hyperlipidemia [E78.5] INVALID FOR* Priority: E More... More... More... Acquired leg length discrepancy [M21.70] INVALID FOR* History of arterial ischemic stroke [Z86.73] INVALID FOR* Priority: B More... Discharge planning issues [Z02.9] INVALID FOR* Priority: K More... Preop testing [Z01.818] INVALID FOR* More... Aortic stenosis [I35.0] INVALID FOR*02/27/2016 Priority: A More... Obesity [E66.9] INVALID FOR* Priority: J More... S/P CABG x 3 [Z95.1] INVALID FOR*02/27/2016 Priority: C More... Shock (HCC) [R57.9] INVALID FOR*02/26/2016 More... Obstructive sleep apnea [G47.33] INVALID FOR* Priority: F More... Acute blood loss anemia [D62] INVALID FOR*02/26/2016 Thrombocytopenia (HCC) [D69.6] INVALID FOR*02/27/2016 Priority: G More... Postprocedural hypotension [I95.81] INVALID FOR*02/26/2016 On mechanically assisted ventilation (HCC) [Z99*INVALID FOR*02/26/2016 Atelectasis, bilateral [J98.11] INVALID FOR*02/27/2016 SUMMARY INVALID FOR* Priority: Mild More... DISPOSITION AND FOLLOW-UP INVALID FOR* Priority: M More... Fluid overload [E87.70] INVALID FOR* Priority: B More... Hyperglycemia [R73.9] INVALID FOR* Priority: E More... Leg pain, inferior [M79.606] INVALID FOR* BMI 45.0-49.9, adult (HCC) [Z68.42] INVALID FOR* Cellulitis and abscess of leg [L03.119, L02.419]INVALID FOR* Priority: C More... Spontaneous hematoma of lower leg [R23.3] INVALID FOR* Priority: A More... H/O aortic valve replacement [Z95.2] INVALID FOR* Priority: B More... Morbid obesity due to excess calories (HCC) [E6*INVALID FOR* Encounter Status:Closed by NICK PALACIOS on 11/11/17 PROGRESS Observed: 11/11/2017 Status: COMPLETED Source: [place] 3:03 PM [facility] REPOSITORY HNO ID: [id number] Author: Nick (Rn) ALFREDO Palacios Service: (none) Author Type: Registered Nurse Type: Progress Notes Filed: 11/11/2017 3:04 PM Note Text: 11/11/2017 3:03 PM IV Access: IV IV Site: left Hand IV GAUGE 24 gauge IV Removal Date 11/11/17 Time 1431 Reactions: WNL Order reviewed by nurse:yes Medications: Definity - dosage 1.5 ml givenslow iV Reaction: No ERRONEOUSENC Observed: 11/01/2017 Status: COMPLETED Source: [place] 12:00 AM [facility] REPOSITORY [id number] Alireza Hilario 1950 M * Clinical document posted in Error * Encounter Type Conversion History User Instant Changed From Changed To COVERIJEOMA Nov 16, 2017 6* External Co* Erroneous* ALLERGIES ALLERGIES DATE TYPE / CODE NAME / CODE REACTION SEVERITY SOURCE 02/24/2018 Drug Penicillins/[id number] Unknown Unknown [place] Allergy/416 476(RXNORM) [facility] 887314([facility] ED CT) Repository 02/24/2018 Drug Sulfa (Sulfonamide Unknown Unknown [place] Allergy/416 Antibiotics)/[id number] [facility] 616574[facility] 788651[facility] 06/10/2016 DRUG METHOTREXATE HIVES [facility] INGREDI/419 [address] [place] 944334(SNOM Repository ED CT) 08/16/2013 Drug PENICILLINS HIVES [facility] Class/84242 [place] 1003(SNOMED Repository CT) 08/16/2013 Drug SULFA (SULFONAMIDE HIVES [facility] Class/21724 ANTIBIOTICS) [place] 1003(SNOMED Repository CT) ENCOUNTERS ENCOUNTERS ADMIT/DISCHARGE ACCOUNT NUMBER ADMITTING ENCOUNTER LOCATION SOURCE CLASS 05/22/2018 [id number] Ambulatory [facility] ding:LAB Repository 05/15/2018/05/15/19 [id number] Ambulatory BBuilding:NALLELY Farrell 19 AB [facility] Repository 05/15/2018/05/15/19 [id number] Ambulatory BBuilding:RA [place] 19 D [facility] Repository 04/29/2018/04/29/20 [id number] Ambulatory BBuilding:NALLELY Farrell 18 [facility] Repository 02/24/2018/02/25/20 [id number] Emergency [address] ding:ED Repository 12/08/2017/12/09/19 [id number] [facility] [place] [address] [place] Room: [address] Repository 12/07/2017/12/08/19 [id number] Ambulatory [address] Repository 11/24/2017/11/29/19 [id number] Ambulatory [address] ding:[facility] Repository 11/14/2017/11/16/19 [id number] Ambulatory [address] Repository 11/14/2017/11/15/19 [id number] Ambulatory [address] Repository 11/11/2017/11/12/19 [id number] Ambulatory [address] Repository 11/09/2017/11/10/19 [id number] CORTNEY CERNA [facility] [address] [place] [address] 18 PA Room: [address] Repository 06/04/2017 [id number] Ambulatory [facility] ding:MASS Repository PAYERS PAYERS ENCOUNTER GUARANTOR PAYER SUBSCRIBER SOURCE 05/22/2018 ALIREZA [id number] E Primary ALIREZA STOLLDOB: [place] ALE[place] Insurance:MEDICARE [id number] [place] PART A [facility] [address]Dcd: [phone]) Number: Repository [phone] () [id number] Date:2018-05-22 05/22/2018 Secondary ALIREZA STOLLDOB: [place] Insurance:[facility] [id number] Community LIVE INS COPolicy Hospital Number: Repository [id number] Date:2984-31-91XY [address] [address]VM: 05/22/2018 Tertiary NOT GIVENUNK [place] Insurance:SELF PAY [facility] Number: Effective Repository Date:2018-05-22 05/15/2018 ALIREZA Mckenzie Primary ALIREZA [employer] STODOB: Insurance:MEDICARE STOLLDOB: Foundation E PART B INSCOPolicy [id number] Repository ALEKS Number: Lilia GALARZA [facility] [place] [id number] [place], [place] [address]Uxu: [phone]) Date:2018-05-15Tel: [phone] ()Tel: [phone]) Name:PCGSue () (WP) Administrators LLCPO [phone] () [address] [address]Hdtaibjsq [place] [address]IN: 05/15/2018 Secondary [facility]:MISC STOLLDOB: Foundation INSURANCE SECONDARY [id number] [facility] Number: Lilia GALARZA [id number] [place], [place] Date:2018-05-1503843Uhz: [phone] [phone] Name:CPO KNUTSON ()Tel: [phone] [place] [phone] (LO) [address]UY: 05/15/2018 ALIREZA Rincon Primary ALIREZA Jami Skweez STOLLDOB: Insurance:MEDICARE STOLLDOB: [facility] E PART B INSCOPolicy [id number] Repository ALEKS Number: FREIDA DOVE [id number] [place], [place] [address]Mec: ([phone]) Date:2018-05-15 844[address]Cpx: [id number] [phone] (HP)Tel: [phone]) Name:PCGS () (WP) Administrators LLCPO [phone] (WP) [address] [address]Iozrhyhtf, [place] [address]OE: 05/15/2018 Secondary [facility] INSURANCE SECONDARY [id number] Repository INSCOPolicy Number: Lilia GALARZA [id number] [place] Date:2018-05-15 [address]Hxj: [id number] [phone] Name:AGRICULTURE LABORATORY TECHNICIAN BOX (HP)Tel: [phone], [place] [phone] (WP) [address]HY: 04/29/2018 [facility]IREZA [facility] Insurance:MEDICARE STOLLDOB: [facility] E PART B INSCOPolicy [id number] Repository ALEKS Number: Lilia OAKES [place] [id number] [place], [place] [address]Htt: ([phone]) Date:2018-04-29 03269Bdm: [id number] [phone] (HP)Tel: [phone]) Name:[facility] () (WP) Administrators LLC [phone] () [address] [address]Qnzqwlusm, [place] [address]PD: 04/29/2018 Secondary ALIREZA Rincon [facility] Insurance:[facility]: [facility] INSURANCE SECONDARY [id number] Repository INSCOPolicy Number: E ALEKS [id number] [facility], [place] Date:2018-04-29 - [address]Ciy: [phone] [id number] [phone] Name:AGRICULTURE LABORATORY TECHNICIAN ZENIA ()Tel: [phone], [place] [phone] (AB) [address]WP: 02/24/2018 ALIREZA [id number] Primary ALIREZA STOLLDOB: [place] Insurance:MEDICARE [id number] [place], [place] PART A [facility] [address]Gnj: (552) Number: Repository [phone] () [id number] Date:2018-02-24 02/24/2018 Secondary ALIREZA STOLLDOB: [place] Insurance:AETNAPolicy [id number] [facility] Number: Hospital [id number] Repository Date:[id number] [address], [place] [address]OX: 02/24/2018 Tertiary ALIREZA STOLLDOB: [place] Insurance:COMMERCIAL [id number] [facility] OTHERPolicy Number: Hospital [id number] Repository Date:[id number] [address], [place] [address]YC: 02/24/2018 Tertiary NOT GIVENUNK [place] Insurance:SELF PAY [facility] Number: Effective Repository Date:2018-02-24 11/24/2017 ALIREZA J [facility]:MEDICARE STOLLDOB: Foundation E PART BPolicy Number: [id number] Repository [facility] [id number] E [facility], [place] Date:2017-11-24 - [place], [place] [address]Vxw: [phone] [id number]: Name:[facility] [phone] ()Tel: [phone] Asbvdkfybkpbgo LLCPO () (WP) [address] [address]Hrybvdjel, [phone] (WP) [place] [address]NR: 11/24/2017 Secondary ALIREZA [facility] Insurance:[facility] STOLLDOB: Foundation INSURANCE [id number] Repository [facility] Number: [place] [id number] [address]Qbz: ([phone]) Date:2017-11-24 [phone] ()Tel: ([phone]) Name:AGRICULTURE LABORATORY TECHNICIAN [phone] () [address]GUERDAROM [address]DJ: 06/04/2017 Alireza Cloud Primary NOT GIVENUNK [place] Galarza Insurance:SELF PAY Community freida Oakes [facility] [address]Upt: [phone]) Number: Effective Repository [phone] () Date:2015-12-01
== END ==
PROVIDERS: Family Provider Family Medicine; PCP Family Medicine
DX: M79.10 Myalgia, unspecified site (principal); R94.4 Abnormal results of kidney function studies; R94.5 Abnormal results of liver function studies
CPT/HCPCS: 36415; 80076; 82085; 82550; 82565

== ENCOUNTER 2018-06-16 13:30 | Outpatient (RCR) | payer MEDICARE, OTHER, SELFPAY ==
--- NOTE | 2018-05-29 12:58 | HP.PTEVAL_ITS ---
Patient's Visit Information GILDA IRVIN is a 67 year old M referred to Physical Therapy by TARYN PALOMINO with a diagnosis of MYALGIA,BILATERAL PRIMARY OSTEOARTHRITIS HIP AND KNEE. Date of Evaluation: 05/29/18 Physical Therapist: Ludwin Paris PT, Cert MDT, OCS - Visit Plan Frequency: 2x /Week Duration: 4 Weeks Plan: LE FLEXABILITY-H/O THR LEFT,GRADED LOWER EXTREMITY STRENGTHENING,NUSTEP,GENERRAL CONDITIONING - Subjective Findings: This 67 y/o male presents to physical therapy with bilateral hip/knee OA,myalgia. Patient has had left THR 2006.Patient symptoms located hamstrings and calf pain. Patient has ocassioanlly knee pain. Patient has seen DR at [facility] for back. Patient symptoms worse with stairs,walking ,standing unable to squat /kneeling. Patient symptoms worse with weather. Symptoms better with summer. Pat ient denies parathesia/tingling. Patient has leg length desrepency left side uses heel lift left side. Patient sleeping okay at night. VOCATION: retired. SOCAIL: - Pain Bilateral Lower Extremity Pain Intensity (Out of 10): 4 Pain Intensity Range: 10 - Objective POSTURE: mild foward posture. GAIT: ambulates with antalgic gait foward posture. NEURO: denies parathesia/tingling ,reflexes L3-4,L4-5,L4-5 1/3. EDEMA: mild effusion right knee greater than left. AROM: right knee supine flexon 0-110 degrees right,hip flexion 100 degrees,ER HIP 40. Degrees, left knee 0-120 degrees, hip flexion 95 degrees ,bilateral hip abd 30 degrees. MMT: quads/hams 4-/5,hip flexion 4-/5,abd 3+/5 anjkle 4/5. LEG LENGTH DISCREPECNY : heel lift left. FLEXABILITY: hams min loss - Special Tests L/S Slump test left side: Negative L/S Slump test right side: Negative L/S Left Straight Leg Raise: Negative L/S Right Straight Leg Raise: Negative R Hip Scour: Positive R Hip Tracey - IT Band: Positive Comment: NT R Knee Valgus - MCL: Positive R Knee Varus - LCL: Positive L Knee Valgus - MCL: Positive L Knee Varus - LCL: Positive - Goals Goal 1:: Independant with HEP Goal Time Frame: 4-6 Weeks Goal 2:: Patient to decrease pain in legs by 50% or greater to improve function and walking. Goal Time Frame: 4-6 Weeks Goal 3:: Patient to to increase sttrength bilateral quads/hams/hip to 4/5 ,except hip abd 4-/5 to improve function. Goal Time Frame: 4-6 Weeks Goal 4:: Patient to increase ablity to walk and peform ADLS' with less pain. Goal Time Frame: 4-6 Weeks Goal 5:: Patient to improve LFES scor by 10 points or greatwer to improve function and QOL Goal Time Frame: 4-6 Weeks - Rehabilitation Potential Physical Therapy Diagnosis: Patient has pain lower legs with weakness impairs ADL'S ,walking ,standing and function thus bebnifit from skilled PT Rehabilitation Potential: Good - Anticipated Interventions Patient/Client Instruction: Educate patient on: Condition, Plan of Care For the Purpose of:: To decrease pain, To increase ROM, To improve muscle performance and motor function, To improve ability to perform ADL's, To increase tolerance to activity/condition/position, To improve ability of physical actions for home/community/work/leisure, To improve gait and locomotor functions, To increase flexibility/ROM, To improve endurance, To reduce risk of recurrence, To improve ability to perform tasks related to life management Therapeutic Exercise to Include: Strength training, Endurance training, Balance training, Flexibilty training, Gait and locomotor training, Active ROM Comment: BLE QUADS/HAMS /HIP For the Purpose of:: To decrease pain, To increase ROM, To improve muscle performance and motor function, To improve ability to perform ADL's, To increase tolerance to activity/condition/position, To improve ability of physical actions for home/community/work/leisure, To improve health of tissue, To decrease soft tissue restriction, To increase flexibility/ROM, To improve ability to perform tasks related to life management Thank you for the opportunity to evaluate your patient. For Medicare and Medicare HMO plans, please review the plan of care and approve it. It will need to be FAXED BACK to us at [phone] for Medicare purposes. For Medicare only, by signing this I certify the plan of care. Please let me know if there are questions or concerns regarding this plan of care. Physician Signature: Date:
--- NOTE | 2018-08-09 15:22 | HP.PT.NRP ---
HP - Discharge Summary (1) - Patient Information GILDA IRVIN was seen in my office for initial evaluation on 05/29/18. The following Plan of Care was established for this patient: Initial Frequency: 2x /Week Initial Duration: 4 Weeks - Anticipated Interventions Patient/Client Instruction: Educate patient on: Condition, Plan of Care For the Purpose of:: To decrease pain, To increase ROM, To improve muscle performance and motor function, To improve ability to perform ADL's, To increase tolerance to activity/condition/position, To improve ability of physical actions for home/community/work/leisure, To improve gait and locomotor functions, To increase flexibility/ROM, To improve endurance, To reduce risk of recurrence, To improve ability to perform tasks related to life management Therapeutic Exercise to Include: Strength training, Endurance training, Balance training, Flexibilty training, Gait and locomotor training, Active ROM For the Purpose of:: To decrease pain, To increase ROM, To improve muscle performance and motor function, To improve ability to perform ADL's, To increase tolerance to activity/condition/position, To improve ability of physical actions for home/community/work/leisure, To improve health of tissue, To decrease soft tissue restriction, To increase flexibility/ROM, To improve ability to perform tasks related to life management This patient was last seen in our office 06/16/18. Pertinent comments regarding their Physical therapy will appear below: Patient seen for PT for hip and knee pain with PT focusing on strengthening,ROM,endurance and d/c to HEP. At this point I will be discontinuing this patient from physical therapy. I would be happy to see this patient again in the future if found appropriate by the physician. Thank you! Ludwin Paris, PT, Cert MDT, OCS
== END 2018-06-16 19:00 | disposition home or self-care (01) ==
LOC: PT 13:30
PROVIDERS: Family Provider Family Medicine; PCP Family Medicine
DX: M79.10 Myalgia, unspecified site (principal); M17.0 Bilateral primary osteoarthritis of knee; M16.0 Bilateral primary osteoarthritis of hip
CPT/HCPCS: 97110; 97162

== ENCOUNTER 2018-06-19 08:01 | Emergency (ER) | payer MEDICARE, OTHER, SELFPAY ==
[2018-06-19 08:03] VITALS: BP 158/77; PULSE 50; RESP 16; TEMP 36.8; O2SAT 96; BMI 44.0
[2018-06-19] MEDS: HYDROmorphone 1 MG/ML Syringe IM (08:27)
--- NOTE | 2018-06-19 08:30 | RAD_ITS ---
STUDY: X-RAY - RIGHT KNEE REASON FOR EXAM: Male, 67 years old. Pain following a fall. TECHNIQUE: 4 view(s) of the knee. COMPARISON: None. FINDINGS: Nondisplaced comminuted fracture of the superior and lateral aspect of the patella. Normal visualized distal femur. Normal visualized proximal tibia and fibula. Normal proximal tibiofibular articulation. There is mild degenerative arthrosis of the medial femorotibial compartment. There is mild degenerative arthrosis of the lateral femorotibial compartment. There is moderate degenerative arthrosis of the patellofemoral articulation. Moderate sized joint effusion. RAD/Knee 4 or More Views IMPRESSION: Nondisplaced, fracture of the patella. Degenerative changes. Moderate size joint effusion. Electronically Signed: Shar Abraham MD at 8:59 EST , Service support ,
--- NOTE | 2018-06-19 09:17 | ED.VISSUMM ---
- ER Visit Summary Date of Service: 06/19/18 Chief Complaint: Pain and swelling right knee after mechanical fall History of Present Illness: The patient is a 67 M who states he was walking in his residence. just adjusted . He slipped on the wooden floor. He presents because of persistent pain and difficulty ambulating secondary to right knee pain. He is on Eliquis. He denies head trauma. Denies headache. Denies visual, ocular auditory symptoms. He denies neck pain. He denies cardiac respiratory symptoms. He denies nausea vomiting. He states he does bruise slightly more easily than normal. He denies hematuria. Denies black or maroon stool. Past medical history of H fibrillation, hypertension, hypercholesteremia, coronary disease and aortic stenosis. There is a history rheumatic fever. Patient and request Dr. Yariel Shin for orthopedics. Physical Examination: Vital signs noted and blood pressure is elevated 150/71 and heart rate is 50. He appears no distress. Head is atraumatic normocephalic. Pupils are equal round reactive. Extraocular muscles are intact. TMs are pearly white with landmarks noted. Nares patent with no drainage. Posterior pharynx without erythema or exudate. Uvula is midline. There is no dysphonia or dysphasia. Trachea is midline. There is no stridor with auscultation of the neck. Heart is irregular and slow with no appreciable murmur, gallop or rub. Lungs are clear to oscillation with fairly room air bilaterally. Abdomen soft nontender. Is no pain palpation of the pelvis. Is no pain the patient cervical spine and cervical spine was cleared per Nexus criteria. He has mild edema of the lower extremities bilaterally. DP and PT pulse are diminished bilaterally. He has stigmata of peripheral arterial disease. GCS is 15. Patient is alert and oriented ?3. Motor is 5/5. Sensation is intact. DTRs are symmetric without clonus or Babinski. Cranial nerves II through XII are intact. Finger to nose to finger was performed adequately. Examination of the right knee reveals swelling. The patella is not ballotable but there is a significant effusion. There is no laxity with varus valgus stress testing. He had pain with Patrica test without laxity. Modified Jacqueline's test was positive for pain medially with appreciable click. He is able to extend 180 degrees and flex to 100 degrees. Test Results: Three-view x-ray of the knee was interpreted by me as osteophyte with possible old fracture through the superior aspect of patella. There appears to be a bipartite patella. There is question of fracture. Case discussed with radiology who feels there is a fracture as well. Patient states she has had a prior fracture. Emergency Department Course and Treatment: Knee immobilizer, crutches and pain medicine. Treatment Plan: Outpatient follow-up with Dr. Yariel Shin Disposition: Discharged home Impression: 1. Moderate traumatic effusion right knee secondary to medial meniscus injury and possible new fracture through old fracture site patella This note was generated with [employer] dictation software. It may contain incorrect words, spelling, and punctuation that were not noted in review of the chart prior to signing ED Disposition - Plan for ED Patient: Disposition: Home or Assisted Living Instructions: ED Fx Patella, ED Meniscal Injury Knee Poss Referrals: Levar Reynaga DO [Primary Care Provider] - Yariel Shin MD [STAFF PHYSICIAN] - 5-7 Days Additional Instructions: Wear knee immobilizer during the day. May remove knee immobilizer at night. Weight-bear as tolerated. Ice to right knee 20-30 minutes 6-8 times a day. Elevate right lower extremity as much as possible.
[2018-06-19] MEDS: HYDROcodone Bitartrate/Apap 5/325 Tablet PO (09:22)
--- NOTE | 2018-06-19 09:22 | ED.DCSUM_ITS ---
- ER Visit Summary Date of Service: 06/19/18 Chief Complaint: Pain and swelling right knee after mechanical fall History of Present Illness: The patient is a 67 M who states he was walking in his residence. just adjusted . He slipped on the wooden floor. He presents because of persistent pain and difficulty ambulating secondary to right knee pain. He is on Eliquis. He denies head trauma. Denies headache. Denies visual, ocular auditory symptoms. He denies neck pain. He denies cardiac resp iratory symptoms. He denies nausea vomiting. He states he does bruise slightly more easily than normal. He denies hematuria. Denies black or maroon stool. Past medical history of H fibrillation, hypertension, hypercholesteremia, coronary disease and aortic stenosis. There is a history rheumatic fever. Patient and request Dr. Yariel Shin for orthopedics. Physical Examination: Vital signs noted and blood pressure is elevated 150/71 and heart rate is 50. He appears no distress. Head is atraumatic normocephalic. Pupils are equal round reactive. Extraocular muscles are intact. TMs are pearly white with landmarks noted. Nares patent with no drainage. Posterior pharynx without erythema or exudate. Uvula is midline. There is no dysphonia or dysphasia. Trachea is midline. There is no stridor with auscultation of the neck. Heart is irregular and slow with no appreciable murmur, gallop or rub. Lungs are clear to oscillation with fairly room air bi laterally. Abdomen soft nontender. Is no pain palpation of the pelvis. Is no pain the patient cervical spine and cervical spine was cleared per Nexus criteria. He has mild edema of the lower extremities bilaterally. DP and PT pulse are diminished bilaterally. He has stigmata of peripheral arterial disease. GCS is 15. Patient is alert and oriented ?3. Motor is 5/5. Sensation is intact. DTRs are symmetric without clonus or Babinski. Cranial nerves II through XII are intact. Finger to nose to finger was performed adequately. Examination of the right knee reveals swelling. The patella is not ballotable but there is a significant effusion. There is no laxity with varus valgus stress testing. He had pain with Patrica test without laxity. Modified Jacqueline's test was positive for pain medially with appreciable click. He is able to extend 180 degrees and flex to 100 degrees. Test Results: Three-view x-ray of the knee was interpreted by me as osteophyte with possible old fracture through the superior aspect of patella. There appears to be a bipartite patella. There is question of fracture. Case discussed with radiology who feels there is a fracture as well. Patient states she has had a prior fracture. Emergency Department Course and Treatment: Knee immobilizer, crutches and pain medicine. Treatment Plan: Outpatient follow-up with Dr. Yariel Shin Disposition: Discharged home Impression: 1. Moderate traumatic effusion right knee secondary to medial meniscus injury and possible new fracture through old fracture site patella This note was generated with [employer] dictation software. It may contain incorrect words, spelling, and punctuation that were not noted in review of the chart prior to signing ED Disposition - Plan for ED Patient: Disposition: Home or Assisted Living Instructions: ED Fx Patella, ED Meniscal Injury Knee Poss Referrals: Levar Reynaga DO [Primary Care Provider] - Yariel Shin MD [STAFF PHYSICIAN] - 5-7 Days Additional Instructions: Wear knee immobilizer during the day. May remove knee immobilizer at night. Weight-bear as tolerated. Ice to right knee 20-30 minutes 6-8 times a day. Elevate right lower extremity as much as possible.
[2018-06-19 10:31] VITALS: BP 161/79; PULSE 88; RESP 16
== END 2018-06-19 10:32 | disposition home or self-care (01) ==
PROVIDERS: Emergency Provider Emergency Medicine; Family Provider Family Medicine; PCP Family Medicine
DX: S83.241A Other tear of medial meniscus, current injury, right knee, initial encounter (principal); M25.461 Effusion, right knee; S82.001A Unspecified fracture of right patella, initial encounter for closed fracture; W01.0XXA Fall on same level from slipping, tripping and stumbling without subsequent striking against object, initial encounter; Y93.01 Activity, walking, marching and hiking; Y92.9 Unspecified place or not applicable; E66.9 Obesity, unspecified; I48.91 Unspecified atrial fibrillation; I10 Essential (primary) hypertension; E78.00 Pure hypercholesterolemia, unspecified; I25.10 Atherosclerotic heart disease of native coronary artery without angina pectoris; I35.0 Nonrheumatic aortic (valve) stenosis; Z86.79 Personal history of other diseases of the circulatory system; Z79.01 Long term (current) use of anticoagulants; Z79.82 Long term (current) use of aspirin; Z79.899 Other long term (current) drug therapy; Z72.0 Tobacco use
CPT/HCPCS: 73564; 96372; 99283

== ENCOUNTER 2018-07-07 10:09 | Emergency (ER) | payer MEDICARE, OTHER, SELFPAY ==
[2018-07-07 10:15] VITALS: BP 139/53; PULSE 57; RESP 19; TEMP 36.4; O2SAT 95; BMI 48.2
[2018-07-07 10:30] VITALS: BP 147/68; PULSE 58; RESP 16; RESP 19; O2SAT 95; O2SAT 96
--- NOTE | 2018-07-07 10:32 | ED.DCSUM_ITS ---
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 He denies any headache or ear pain mostly. He had a cold recently, his states that she had same cold and had vertigo to with it, but her symptoms are all resolved now. He has had episodes of vertigo all in the same context, with standing up after bending over, for the past month or so. All of his other episodes were very brief and not severe, but this 1, which was in the identical context, was more severe and persistent although it now is gone. It caused him to fall to his buttocks. He then healed on his knees, so his right knee which is chronically painful, is a little sore but he did not injure anything. No loss of consciousness and did not hit his head. No mental status changes or focal peripheral neurologic symptoms. - Past Medical History (1) Aortic stenosis Status: Chronic (2) Atrial fibrillation Status: Chronic (3) CAD (coronary artery disease) Status: Chronic (4) Hyperlipidemia Status: Chronic (5) Hypertension Status: Chronic (6) Rheumatic fever Status: Chronic Past Medical History - Allergies and Home Meds Allergies/Adverse Reactions: Allergies Penicillins Allergy (Verified 07/07/18 10:20) Unknown Sulfa (Sulfonamide Antibiotics) Allergy (Verified 07/07/18 10:20) Unknown Primary Care Physician: Levar Reynaga DO [Primary Care Provider] - Surgical History: coronary bypass surgery, herniorrhaphy, - Smoking Status: Current every day smoker - Family History Maternal Family History: Reports: No pertinent history Paternal Family History: Reports: No pertinent history Review of Systems General: Denies: Chills, Fever, Sweats Eyes: Reports: Blurred Vision - bilaterally - resolved. Denies: Visual changes - bilaterally, Diplopia ENT: Reports: - - tinnitus. Denies: Rhinorrhea, Sore throat Cardiovascular: Denies: Chest pain, Palpitations Respiratory: Denies: Dyspnea, Cough, Dyspnea on exertion Gastrointestinal: Reports: Nausea, Vomiting. Denies: Abdominal pain, Diarrhea, Melena, Hematochezia Genitourinary: Denies: Dysuria, Hematuria, Frequency Musculoskeletal: Reports: Extremity Pain - R knee chronic -- I get injections periodically. Denies: Back pain Skin: Denies: Rash, Wounds Neurological: Reports: - - vertigo see HPI. Denies: Headache, Weakness, Parasthesia, Numbness Physical Exam Vital Signs/Narrative: Vital Signs Temp Pulse Resp BP Pulse Ox 07/07/18 10:15 97.5 F L 57 L 19 H 139/53 H 95 Inital Vital Signs reviewed: Yes General: Well nourished, Well developed, Obese, No Acute Distress Head: Normocephalic, Atraumatic Eyes: Perrl, EOMI - no nystagmus. ENT: Moist mucous membranes, No rhinorrhea, TM's clear. Negative for: Nasal congestion, Sinus tenderness Neck: Supple, Nontender Respiratory: No distress, Chest nontender Extremities: Nontender - incl R knee; all ligaments stable, no pain w/ stressing. no signs of trauma, No edema Skin: Normal color, No rash, No Trauma Neurological: Alert, Oriented x3, Cranial nerves II-XII grossly intact, Normal Strength, Normal Sensation Psychological: Normal affect, Normal Mood Diagnostic/Tx/Re-eval - Medical Decision Making Negative Tian-Hallpike bilaterally. He is asymptomatic right now and has no injuries. This clearly is peripheral vertigo. His blood pressure is in the 130s. I do not think further workup is indicated. He may have labyrinthitis, he may have vestibular neuronitis as a result of his recent viral infection, or he may have BPPV. At this time is stable to be discharged home, he is given a dose of meclizine and a prescription for prn use, in addition to a referral for ENT for persistent symptoms. They are comfortable with this overall plan. ED Disposition - Plan for ED Patient: Disposition: Home or Assisted Living Diagnosis: Peripheral vertigo, unspecified Instructions: ED Vertigo Unspecified Prescriptions: Meclizine HCl [Antivert] 25 mg PO TID PRN PRN #16 tablet PRN Reason: Vertigo Referrals: Levar Reynaga DO [Primary Care Provider] - 1 Week if not improving Colton Elizalde MD [STAFF PHYSICIAN] - 1 Week if not improving Additional Instructions: You may follow-up with your doctor or ENT if your symptoms are persistent.
[2018-07-07] MEDS: Meclizine HCl 25 MG Tablet PO (10:36)
== END 2018-07-07 10:54 | disposition home or self-care (01) ==
PROVIDERS: Emergency Provider Emergency Medicine; Family Provider Family Medicine; PCP Family Medicine
DX: H81.399 Other peripheral vertigo, unspecified ear (principal); H93.19 Tinnitus, unspecified ear; I35.0 Nonrheumatic aortic (valve) stenosis; I48.2 Chronic atrial fibrillation; I25.10 Atherosclerotic heart disease of native coronary artery without angina pectoris; I10 Essential (primary) hypertension; E78.5 Hyperlipidemia, unspecified; F17.200 Nicotine dependence, unspecified, uncomplicated; Z79.01 Long term (current) use of anticoagulants; Z79.82 Long term (current) use of aspirin; Z79.891 Long term (current) use of opiate analgesic; Z79.899 Other long term (current) drug therapy
CPT/HCPCS: 99284

== ENCOUNTER 2019-01-10 15:25 | Emergency (ER) | payer MEDICARE, OTHER, SELFPAY ==
[2019-01-10 15:26] VITALS: BP 146/85; PULSE 73; RESP 16; TEMP 36.1; O2SAT 95; BMI 44.0
--- NOTE | 2019-01-10 15:52 | VDLE_ITS ---
Reason For Study: Swelling RIGHT GSV is normal. CFV is compressible, spontaneous, phasic, competent and demonstrates normal augmentation. FV is compressible, spontaneous, phasic, competent and demonstrates normal augmentation. POP V is compressible, spontaneous, phasic, competent and demonstrates normal augmentation. T/P Trunk is compressible. PTV is compressible. RT PerV is compressible. Procedure Exam performed portable in ED. A preliminary report was called and/or faxed to [facility]. Interpretation Summary Deep veins of the right lower extremity are patent and compressible segmentally. There is no evidence of right lower extremity deep vein thrombosis. Valvular competence appears intact within the proximal deep venous system on the right . The right great saphenous vein appears patent and compressible segmentally. Ordering Physician: Nohelia Engle Referring Physician: Levar Reynaga M.D. Performed By: Sandra Price RVT
--- NOTE | 2019-01-10 15:53 | ED.DCSUM_ITS ---
History of Present Illness Chief Complaint: Lower Extremity Injury Informant: Patient, Family Onset: Today Context: Gradual Onset Narrative: Patient is a 68-year-old male with history of stroke, bovine heart valve replacement (currently on Eliquis), hypertension and hyperlipidemia presenting with 1 day of right lower extremity pain. Patient states he was sleeping when he felt a popping sensation in his knee. Throughout the day today he has had worsening redness and pain of his right lower leg. 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 Patient denies any history of pulmonary embolism or DVT. He states he is taking his Eliquis every day as prescribed. Patient also admits to having a history of cellulitis. He denies any fever chills. He denies any nausea, vomiting, chest pain, shortness breath or difficulty breathing. He did have bilateral knee cortisone injections 1 week ago by his doctor. Patient states his knee pain is more diffuse. It is worse with certain movements and better with rest. Past Medical History - Allergies and Home Meds Allergies/Adverse Reactions: Allergies Penicillins Allergy (Verified 07/07/18 10:20) Unknown Sulfa (Sulfonamide Antibiotics) Allergy (Verified 07/07/18 10:20) Unknown Primary Care Physician: Levar Reynaga DO [Primary Care Provider] - Past Medical History: - - History of stroke, hypertension, hyperlipidemia Surgical History: coronary bypass surgery, herniorrhaphy, - Smoking Status: Current every day smoker - Family History Maternal Family History: Reports: No pertinent history Paternal Family History: Reports: No pertinent history Sibling Family History: Reports: Heart Disease - Brother: CAD; CABG; ischemic cardiomyopathy; status post ICD Review of Systems All systems negative except as indicated Musculoskeletal: Reports: Arthralgias - right knee pain Skin: Reports: Rash - redness, right upper [place] Physical Exam Vital Signs/Narrative: Vital Signs Temp Pulse Resp BP Pulse Ox 01/10/19 15:26 97 F L 73 16 146/85 H 95 Inital Vital Signs reviewed: Yes General: Well nourished, Well developed, Obese, No Acute Distress Head: Normocephalic, Atraumatic Eyes: Perrl, EOMI ENT: Moist mucous membranes, No rhinorrhea Neck: Supple, Nontender Cardiovascular: Regular rate, Regular rhythm, No murmurs Respiratory: No distress, CTA bilaterally, Chest nontender Abdomen: Soft, Nontender, Nondistended, Normal bowel sounds Back: Nontender Extremities: Tenderness - Mild tenderness to palpation of the right knee diffusely, Edema - Slight asymmetric edema of the lower extremities with the right leg larger than the left, - - Lower extremity extensor mechanism intact, no obvious deformity or pinpoint bony tenderness. Negative for: Calf Tenderness Skin: Rash - Erythema and warmth over right proximal lateral [place] Neurological: Alert, Oriented x3, Cranial nerves II-XII grossly intact, Normal Strength, Normal Sensation Psychological: Normal affect, Normal Mood Diagnostic/Tx/Re-eval Laboratory Results - last 24 hr 01/10/19 01/10/19 01/10/19 16:15 16:15 16:15 WBC 7.2 RBC 4.74 Hgb 13.8 Hct 42.4 MCV 89.5 MCH 29.1 MCHC 32.5 RDW Std Deviation 46.2 H RDW Coeff of Citlaly 14.1 Plt Count 170 MPV 10.3 Immature Gran % (Auto) 0.700 Neut % (Auto) 77.4 H Lymph % (Auto) 10.0 L Carbon % (Auto) 11.0 H Eos % (Auto) 0.3 Baso % (Auto) 0.6 Absolute Neuts (auto) 5.6 Absolute Lymphs (auto) 0.72 L Nucleated RBC % 0 PT 13.5 INR 1.1 Sodium 138 Potassium 4.1 Chloride 102 Carbon Dioxide 31.0 Anion Gap 5 BUN 24 H Creatinine 1.52 H Estim Creat Clear Calc 51.76 Est GFR (MDRD) Af Amer 59 L Est GFR (MDRD) Non-Af 49 L BUN/Creatinine Ratio 15.8 Glucose 90 Calcium 8.8 Right lower extremity duplex?negative for DVT - Medical Decision Making [place] is evaluated for 1 day of right lower extremity discomfort, redness and wor sening swelling. DVT is unlikely as patient is on Eliquis however ultrasound is obtained. This is negative for DVT. I suspect patient has a cellulitis. Patient be started on doxycycline as he is allergic to penicillin and sulfa. He is otherwise well-appearing. Patient does have a mildly elevated creatinine. He is given a liter of IV fluids in the emergency room. I do believe patient is a good candidate for outpatient follow-up. He is encouraged to follow-up with his primary care physician for reevaluation of his kidney function. He is counseled to stay out direct sunlight while he is on doxycycline. Patient is counseled on signs and symptoms requiring return to the emergency room. Patient verbalizes agreement and understand this plan. Patient discharged home in stable and improved condition. ED Disposition - Plan for ED Patient: Disposition: Home or Assisted Living Diagnosis: Cellulitis of right lower extremity without foot, Elevated serum creatinine Instructions: Cellulitis Prescriptions: Doxycycline 100 mg PO BID #14 cap Prescription Printed Referrals: Levar Reynaga DO [Primary Care Provider] - Additional Instructions: Follow up with your primary care doctor within the next few days for recheck of your leg especially if it is worsening. You also need to have your kidney function reevaluated within the next week by her primary care doctor. Return to the emergency room if you develop worsening symptoms.
[2019-01-10 16:27] LABS: Absolute Lymphocyte Count 0.72 X10^3/uL (0.83-4.51); Absolute Neutrophil Count 5.6 X10^3/uL (2.0-7.7); Basophil# 0.04 X10^3/uL; Basophil% 0.6 % (0-1); Eosinophil# 0.02 X10^3/uL; Eosinophils% 0.3 % (0-5); Hematocrit 42.4 % (40-54); Hemoglobin 13.8 g/dL (13.0-16.5); Lymphocyte # 0.72 X10^3/ul (4.0); Mean Corp Hgb Conc 32.5 g/dL (32-36); Mean Corpuscular Hgb 29.1 pg (27.0-32.0); Mean Corpuscular Volume 89.5 fL (80-94); Mean Platelet Vol. 10.3 fl (6.2-12.0); Monocyte# 0.79 X10^3/uL; NRBC Flagged by Analyzer 0 % (0-5); Neutrophil # 5.59 X10^3/uL (2.7-7.7); Neutrophil % 77.4 % (47-70); Platelet Count 170 K/mm3 (150-450); RBC Distribution Width CV 14.1 % (11.6-14.6); RBC Distribution Width SD 46.2 fl (35.1-43.9); Red Blood Count 4.74 M/mm3 (4.6-6.2); White Blood Count 7.2 K/mm3 (4.4-11.0)
[2019-01-10 16:32] LABS: International Normalized Ratio 1.1; Prothrombin Time (Protime)PT. 13.5 SECONDS (11.7-14.9)
[2019-01-10 16:38] LABS: Anion Gap 5 (5-15); BUN 24 mg/dL (7-18); BUN/Creat Ratio 15.8 RATIO (10-20); Calcium,Total 8.8 mg/dL (8.5-10.1); Chloride 102 mmol/L (98-107); Creatinine, Serum 1.52 mg/dL (0.70-1.30); EST Glomerular Filtration Rate 49 mL/min (>60); Est Glom Filt Rate - Afr Amer 59 mL/min (>60); Estimated Creatinine Clearance 51.76 ml/min; Glucose 90 mg/dL (74-106); Potassium 4.1 mmol/L (3.5-5.1); Sodium Level 138 mmol/L (136-145)
[2019-01-10] MEDS: 0.9% Normal Saline 1,000 ML 999 ML IV (16:50)
[2019-01-10] MEDS: Doxycycline 100 MG CAPSULE PO (17:49)
[2019-01-10 17:50] VITALS: RESP 18
== END 2019-01-10 18:06 | disposition home or self-care (01) ==
PROVIDERS: Emergency Provider Emergency Medicine; Family Provider Family Medicine; PCP Family Medicine
DX: L03.115 Cellulitis of right lower limb (principal); R79.89 Other specified abnormal findings of blood chemistry; E66.9 Obesity, unspecified; I10 Essential (primary) hypertension; E78.5 Hyperlipidemia, unspecified; Z86.73 Personal history of transient ischemic attack (TIA), and cerebral infarction without residual deficits; Z95.2 Presence of prosthetic heart valve; Z79.01 Long term (current) use of anticoagulants; Z79.82 Long term (current) use of aspirin; Z79.899 Other long term (current) drug therapy; F17.200 Nicotine dependence, unspecified, uncomplicated
CPT/HCPCS: 80048; 85025; 85610; 93971; 96360; 99284; J7030; A4216

== ENCOUNTER 2019-01-28 11:33 | Emergency (ER) | payer MEDICARE, OTHER, SELFPAY ==
[2019-01-28 11:34] VITALS: BP 115/70; PULSE 62; RESP 20; TEMP 36.8; O2SAT 96; BMI 49.6
--- NOTE | 2019-01-28 12:04 | RAD_ITS ---
STUDY: X-RAY CHEST REASON FOR EXAM: Male, 68 years old. Shortness of breath TECHNIQUE: Frontal and lateral views of the chest COMPARISON: 07/08/2016 FINDINGS: The lungs are clear. There are no pleural effusions. There is no pneumothorax. The heart is stable in size. Again noted are sternotomy wires. The visualized osseous structures are within normal limits. RAD/Chest PA and Lateral IMPRESSION: No acute thoracic pathology. Electronically Signed: Pritesh Rebollar, at 13:16 EDT Tel , Service support ,
[2019-01-28 12:10] VITALS: BP 160/75; PULSE 60; RESP 18; O2SAT 93
--- NOTE | 2019-01-28 12:11 | ED.DCSUM_ITS ---
History of Present Illness <Wilner Ortiz - Last Filed: 01/28/19 12:35> Informant: Patient Onset: Weeks Narrative: Patient presents to the ED with a several week history of increased shortness of breath. He has had a dry cough. He states that he was admitted to [facility] 2 weeks ago for a right lower extremity cellulitis. This has resolved. He states he has seen his PCP who thought it was just a viral bronchitis. They did hear wheezing in his lungs. He was prescribed albuterol inhaler and has been using it approximately 4 times daily. He was seen by his PCP again and wheezing had not resolved. They have ordered outpatient PFTs which have not been done yet. He was also prescribed a steroid inhaler, however has not started using it yet. He denies any fever, chills, chest pain. He does take Eliquis for history of bovine heart valve and A. fib. <Shonna Romero - Last Filed: 01/28/19 13:13> Chief Complaint: Shortness of Breath Past Medical History <Wilner Ortiz - Last Filed: 01/28/19 12:35> Surgical History: coronary bypass surgery, herniorrhaphy, - Smoking Status: Never smoker - Family History Maternal Family History: Reports: No pertinent history Paternal Family History: Reports: No pertinent history Sibling Family History: Reports: Heart Disease - Brother: CAD; CABG; ischemic cardiomyopathy; status post ICD <Shonna Romero - Last Filed: 01/28/19 13:13> - Allergies and Home Meds Allergies/Adverse Reactions: Allergies Penicillins Allergy (Verified 01/28/19 11:34) Unknown Sulfa (Sulfonamide Antibiotics) Allergy (Verified 01/28/19 11:34) Unknown warfarin [From Coumadin] Adverse Reaction (Verified 01/28/19 11:34) Unknown Primary Care Physician: Levar Reynaga DO [Primary Care Provider] - Review of Systems General: Denies: Chills, Fever, Sweats Eyes: Denies: Visual changes - bilaterally, Diplopia ENT: Denies: Rhinorrhea, Sore throat Cardiovascular: Denies: Chest pain, Palpitations Respiratory: Reports: Dyspnea, Cough, Dyspnea on exertion. Denies: Sputum Gastrointestinal: Denies: Abdominal pain, Nausea, Vomiting, Diarrhea, Melena, Hematochezia Genitourinary: Denies: Dysuria, Hematuria, Frequency Musculoskeletal: Denies: Back pain, Extremity Pain Skin: Denies: Rash, Wounds Neurological: Denies: Headache, Weakness, Numbness <Shonna Romero - Last Filed: 01/28/19 13:13> Physical Exam Vital Signs/Narrative: Vital Signs Temp Pulse Resp BP Pulse Ox 01/28/19 12:20 56 L 18 01/28/19 12:10 60 18 160/75 H 93 01/28/19 11:34 98.3 F 62 20 H 115/70 96 <Wilner Ortiz - Last Filed: 01/28/19 12:35> Vital Signs/Narrative: Vital Signs Temp Pulse Resp BP Pulse Ox 01/28/19 12:10 60 18 160/75 H 93 01/28/19 11:34 98.3 F 62 20 H 115/70 96 General: Well nourished, Well developed, No Acute Distress Head: Normocephalic, Atraumatic Eyes: Perrl, EOMI ENT: Moist mucous membranes, No rhinorrhea Neck: Supple, Nontender Cardiovascular: Regular rate, Regular rhythm, No murmurs Respiratory: No distress, Chest nontender, Wheezing Abdomen: Soft, Nontender, Nondistended, Normal bowel sounds Back: Nontender, Normal Inspection Extremities: Nontender, No edema Skin: Normal color, No rash Neurological: Alert, Oriented x3, Cranial nerves II-XII grossly intact, Normal Strength, Normal Sensation Psychological: Normal affect, Normal Mood <Shonna Romero - Last Filed: 01/28/19 13:13> Diagnostic/Tx/Re-eval - Medical Decision Making Patient evaluated with our physician assistant teaching professor. 68-year-old male history of prior bypass and aortic valve replaced on Eliquis with recent hospital cessation due to leg cellulitis. Complaining of feeling short of breath primarily with exertion. No chest pain. No hemoptysis. No leg swelling. Physical exam: Vital signs stable afebrile. Pulse ox 93% on room air no hypoxia. No distress. HEENT exam unremarkable. Neck nontender no lymphadenopathy or JVD. Lungs clear to auscultation bilaterally. Heart regular rhythm 3/6 systolic ejection murmur secondary to his aortic valve. Chest wall nontender is a well-healed sternotomy incision. Abdomen is obese but soft nontender normal bowel sounds no peritoneal signs. Extremities moves all 4. Calves are nontender without edema or cords. Neurologically is awake and alert without focal motor deficits. Patient be worked up for exertional dyspnea. <Wilner Ortiz - Last Filed: 01/28/19 12:35> Chest X-Ray - ED: Read by ED Physician, Normal, Heart, Lungs, Mediastinum, No Acute Disease - EKG Initial EKG Interpretation: Sinus Rhythm, No Acute Injury Pattern - Medical Decision Making Presents to the ED with what he describes is more exertional dyspnea. He did have states that he had significant wheezing in the office of his PCPs. He does have some mild wheezing here. He was given nebulized breathing treatment. EKG is fairly unremarkable. Cardiac work-up here is negative for acute findings. At this time, we do feel patient warrants admission for exertional dyspnea. He had a CABG approximately 4 to 5 years ago. He did have a stress test last year. Patient was agreeable to this plan. Impression: Exertional dyspnea. Disposition: Admit to PCU <Shonna Romero - Last Filed: 01/28/19 13:13> ED Disposition <Wilner Ortiz - Last Filed: 01/28/19 12:35> <Shonna Romero - Last Filed: 01/28/19 13:13> - Plan for ED Patient: Referrals: Levar Reynaga DO [Primary Care Provider] -
[2019-01-28 12:20] VITALS: PULSE 56; RESP 18
[2019-01-28] MEDS: Ipratropium/Albuterol Sulfate 3 ML AMPUL.NEB INHALATION (12:20)
[2019-01-28 12:31] LABS: Absolute Lymphocyte Count 1.22 X10^3/uL (0.83-4.51); Absolute Neutrophil Count 2.6 X10^3/uL (2.0-7.7); Basophil# 0.07 X10^3/uL; Basophil% 1.5 % (0-1); Eosinophil# 0.12 X10^3/uL; Eosinophils% 2.6 % (0-5); Hematocrit 44.7 % (40-54); Hemoglobin 14.3 g/dL (13.0-16.5); Lymphocyte # 1.22 X10^3/ul (4.0); Lymphocyte % 26.5 % (19-41); Mean Corpuscular Hgb 28.4 pg (27.0-32.0); Mean Corpuscular Volume 88.7 fL (80-94); Mean Platelet Vol. 10.7 fl (6.2-12.0); Monocyte# 0.56 X10^3/uL; Monocyte% 12.2 % (0-10); NRBC Flagged by Analyzer 0 % (0-5); Neutrophil # 2.62 X10^3/uL (2.7-7.7); Platelet Count 188 K/mm3 (150-450); RBC Distribution Width CV 14.2 % (11.6-14.6); RBC Distribution Width SD 45.1 fl (35.1-43.9); Red Blood Count 5.04 M/mm3 (4.6-6.2); White Blood Count 4.6 K/mm3 (4.4-11.0)
[2019-01-28 12:45] LABS: Anion Gap 8 (5-15); BUN 23 mg/dL (7-18); BUN/Creat Ratio 16.9 RATIO (10-20); Calcium,Total 9.1 mg/dL (8.5-10.1); Chloride 106 mmol/L (98-107); Creatinine, Serum 1.36 mg/dL (0.70-1.30); EST Glomerular Filtration Rate 56 mL/min (>60); Est Glom Filt Rate - Afr Amer 67 mL/min (>60); Estimated Creatinine Clearance 57.85 ml/min; Glucose 103 mg/dL (74-106); Potassium 3.5 mmol/L (3.5-5.1); Sodium Level 142 mmol/L (136-145)
--- NOTE | 2019-01-28 13:44 | PCM.HP.STD ---
Problem List (1) CAD (coronary artery disease) Status: Chronic (2) Hyperlipidemia Status: Chronic (3) Hypertension Status: Chronic (4) Atrial fibrillation Status: Chronic History of Present Illness Date of Admission: 01/28/19 Chief Complaint: MONTIEL The patient is a 68 year old M with a PMH as below who presents with several week history of increased shortness of breath. He initially had a dry cough and saw his PCP who thought initially he had a viral bronchitis. He did have wheezing on his PCPs exam and therefore was started on albuterol inhaler which she is been using about 4 times a day without any significant improvement. He follow-up with his primary care physician as an outpatient again and was prescribed a steroid inhaler which she has not started taking. He denies having any significant chest pain or shortness of breath at rest, however he has significant dyspnea on exertion. He does take Eliquis for history of A. fib and a bovine heart valve. In the ER labs were unremarkable with a normal troponin and an unremarkable EKG. Past Medical History Past Medical History (Chronic Problems): Chronic Problems Aortic stenosis (Chronic) CAD (coronary artery disease) (Chronic) Cardiac murmur (Chronic) Rheumatic fever (Chronic) Hyperlipidemia (Chronic) Hypertension (Chronic) Atrial fibrillation (Chronic) Allergies Penicillins Allergy (Verified 01/28/19 11:34) Unknown Sulfa (Sulfonamide Antibiotics) Allergy (Verified 01/28/19 11:34) Unknown warfarin [From Coumadin] Adverse Reaction (Verified 01/28/19 11:34) Unknown Home Medications: Ambulatory Orders Medication Instructions Recorded Fluticasone 0.05% [Flonase Nasal 2 spray NASAL PRN PRN 08/14/13 [place]] Atorvastatin Calcium [Lipitor] 40 mg PO QHS tablet 03/10/16 Aspirin [Aspirin, Baby] 81 mg PO DAILY@0800 06/06/16 Hydrochlorothiazide [Hctz] 25 mg PO DAILY 06/06/16 Losartan Potassium [Cozaar] 100 mg PO DAILY 06/06/16 Metoprolol Tartrate [Lopressor 25 mg PO BID 06/06/16 (beta kelsy)] Apixaban [Eliquis] 5 mg PO BID 07/08/16 buPROPion XL [Wellbutrin Xl] 300 mg PO DAILY 01/28/19 Surgical History: coronary bypass surgery, herniorrhaphy, - Psychiatric History: Depression Smoking Status: Never smoker Alcohol: None Drugs: None - *Family History Maternal History Items: No pertinent history Paternal History Items: No pertinent history Sibling History Items: Heart Disease - Brother: CAD; CABG; ischemic cardiomyopathy; status post ICD VTE Information - Inpt Only VTE Present on Admission: No - Physical Exam Vital Signs Temp Pulse Resp BP Pulse Ox 98.3 F 56 L 18 160/75 H 93 01/28/19 11:34 01/28/19 12:20 01/28/19 12:20 01/28/19 12:10 01/28/19 12:10 Oxygen Delivery Method Room Air Weight: 366 lb 3.005 oz Body Mass Index (BMI) 49.6 Laboratory Tests Past 24 Hrs 01/28/19 01/28/19 12:20 12:20 WBC 4.6 RBC 5.04 Hgb 14.3 Hct 44.7 MCV 88.7 MCH 28.4 MCHC 32.0 RDW Std Deviation 45.1 H RDW Coeff of Citlaly 14.2 Plt Count 188 MPV 10.7 Immature Gran % (Auto) 0.200 Neut % (Auto) 57.0 Lymph % (Auto) 26.5 [place] % (Auto) 12.2 H Eos % (Auto) 2.6 Baso % (Auto) 1.5 H Absolute Neuts (auto) 2.6 Absolute Lymphs (auto) 1.22 Nucleated RBC % 0 Sodium 142 Potassium 3.5 Chloride 106 Carbon Dioxide 28.0 Anion Gap 8 BUN 23 H Creatinine 1.36 H Estim Creat Clear Calc 57.85 Est GFR (MDRD) Af Amer 67 Est GFR (MDRD) Non-Af 56 L BUN/Creatinine Ratio 16.9 Glucose 103 Calcium 9.1 Troponin I < 0.015 Assessment/Plan 1. Dyspnea on exertion -We will obtain an echo and a stress test to rule out any cardiac origin -Serial troponins -He does have a PFT scheduled as an outpatient -We will continue with duo nebs and possible steroids 2.
[2019-01-28 14:05] VITALS: BP 132/92; PULSE 58; RESP 18; TEMP 36.7; O2SAT 95
--- NOTE | 2019-01-28 15:26 | PCM.PN.HOSP ---
Subjective: 68-year-old male who presents to the hospital with dyspnea on exertion, shortness of breath, cough. This started about 2 weeks ago when he was babysitting his grandson who was sick. He and his both started with an upper respiratory infection. He states that his symptoms have been improving however he is unable to get rid of a cough. He coughs more significantly when he lays down flat and therefore has difficulty breathing because of how often he is coughing. He saw his PCP thought he had a viral viral bronchitis and on Tuesday started using his albuterol inhaler 4 times a day instead of as needed as prescribed. He did not fill the steroid inhaler that was prescribed by his PCP. Today he presents with continued cough, without any chest pain. He has no lower extremity edema, and he was recently admitted to [facility] for right lower extremity cellulitis which has resolved. He is afebrile without a leukocytosis and in the ER his initial troponin was negative and his EKG was unremarkable. Chest x-ray was also unremarkable. Vitals/I&O's: Vital Signs Temp Pulse Resp BP Pulse Ox 98.1 F 58 L 18 132/92 H 95 01/28/19 14:05 01/28/19 14:05 01/28/19 14:05 01/28/19 14:05 01/28/19 14:05 Oxygen Delivery Method Room Air Weight: 366 lb 3.005 oz Body Mass Index (BMI) 49.6 General: Alert, Oriented x3, Cooperative, No apparent distress HEENT: Atraumatic, PERRLA, EOMI, Normocephalic Oral: Moist Mucosa Neck: Supple, No JVD Lungs: Normal air movement, Rhonchi, Wheezes Cardiovascular: Regular rate, Regular Rhythm, Normal S1, Normal S2, No murmurs Abdomen: Soft, Non Tender, Non-Distended, No Hepato-splenomegaly, Obese Extremities: No edema, Capillary Refill Less than 3 Seconds Skin: No rashes, No breakdown, - - Venous stasis changes bilaterally Neurological: Neuro grossly intact, Sensory exam intact to light touch and pain Psych/Mental Status: Normal Affect, Appropriate Laboratory Results 01/28/19 12:20: WBC 4.6, RBC 5.04, Hgb 14.3, Hct 44.7, MCV 88.7, MCH 28.4, MCHC 32.0, RDW Std Deviation 45.1 H, RDW Coeff of Citlaly 14.2, Plt Count 188, MPV 10.7, Immature Gran % (Auto) 0.200, Neut % (Auto) 57.0, Lymph % (Auto) 26.5, [place] % (Auto) 12.2 H, Eos % (Auto) 2.6, Baso % (Auto) 1.5 H, Absolute Neuts (auto) 2.6, Absolute Lymphs (auto) 1.22, Nucleated RBC % 0 01/28/19 12:20: Sodium 142, Potassium 3.5, Chloride 106, Carbon Dioxide 28.0, Anion Gap 8, BUN 23 H, Creatinine 1.36 H, Estim Creat Clear Calc 57.85, Est GFR (MDRD) Af Amer 67, Est GFR (MDRD) Non-Af 56 L, BUN/Creatinine Ratio 16.9, Glucose 103, Calcium 9.1, Troponin I < 0.015 Medical Necessity - Tobacco Use Smoking Status: Never smoker Assessment/Plan 1. Asthma exacerbation versus viral bronchitis/morbid obesity -Recommend continuation of his albuterol and the addition of prednisone. -This is likely a respiratory issue given the extensive wheezing in all lung lucero on exam -Is difficulty with breathing laying down a secondary to coughing which started with his viral infection -I discussed with him that we can bring him into the hospital for breathing treatments and IV steroids to monitor his improvement, or he could go home. I discussed the risks and benefits with both him and his as well as his stepdaughter all of whom agreed to go home. They felt that he would do better at home. I discussed with them that there is also risk that this could be cardiac in origin given his BMI of 49.7 and his previous cardiac history, they stated that if he had anything heart related they would like that to be taking care of at the [facility]. They understand the risks of going home and that if he does not have any improvement on the steroids in the next couple of days that he will present back to the ER for cardiac work-up at which time he would likely be transferred to the [facility] 2. HTN/HLD/CAD/aortic valve repair and A. fib -Continue with his Eliquis, aspirin, Lipitor, losartan, metoprolol -If there is no improvement in his pulmonary symptoms given the extensiveness of his cardiac history he should be evaluated on a cardiac basis -This was explained to them that this could be done here in the hospital with a stress test and an echo however they refused to have anything done at this hospital from a cardiac standpoint 3. Depression/anxiety -Stable -Continue with Wellbutrin Code Visit Inpatient E&M: 44657 Subs Hosp L3
== END 2019-01-28 15:10 | disposition left against medical advice (07) ==
LOC: ED 13:08 → PCU 14:30
PROVIDERS: Emergency Provider Physician Assistant; Family Provider Family Medicine; PCP Family Medicine; Referring Provider Family Medicine
DX: R06.09 Other forms of dyspnea (principal); Z53.21 Procedure and treatment not carried out due to patient leaving prior to being seen by health care provider; R05 Cough; I48.91 Unspecified atrial fibrillation; R01.1 Cardiac murmur, unspecified; Z95.1 Presence of aortocoronary bypass graft; Z95.2 Presence of prosthetic heart valve; Z79.01 Long term (current) use of anticoagulants; Z79.82 Long term (current) use of aspirin; Z79.899 Other long term (current) drug therapy
CPT/HCPCS: 71046; 80048; 84484; 85025; 93005; 94640; 99285; A4216

== ENCOUNTER 2019-11-22 16:06 | Observation (INO) | payer MEDICARE, OTHER, SELFPAY ==
[2019-11-22] VITALS (7 sets, daily range): BP systolic 131–185; BP diastolic 58–95; PULSE 57–66; RESP 15–20; TEMP 36.7–36.9; O2SAT 95–98; BMI 49.4; BMI 48.2
--- NOTE | 2019-11-22 16:56 | EKG12_ITS ---
Test Reason : DIZZINESS Blood Pressure : / mmHG Vent. Rate : 059 BPM Atrial Rate : 059 BPM P-R Int : 202 ms QRS Dur : 104 ms QT Int : 468 ms P-R-T Axes : 021 014 082 degrees QTc Int : 463 ms Sinus bradycardia Otherwise normal ECG Confirmed by LAN BOWEN ([id number]), pictures editor ANTHONY GIRALDO ([id number]) on 11/26/2019 11:45:51 AM Referred By: Confirmed By:LAN BOWEN
--- NOTE | 2019-11-22 16:56 | RAD_ITS ---
STUDY: X-RAY CHEST REASON FOR EXAM: Male, 69 years old. Shortness of breath, dizziness, vomiting. TECHNIQUE: AP portable COMPARISON: 01-28-19 FINDINGS: There is nonspecific interstitial thickening bilaterally slightly greater on the left but no focal infiltration.. There is no demonstrated pleural abnormality. Postop change status post median sternotomy and CABG. Normal size heart. Normal mediastinum and katie. Normal visualized pulmonary arteries. Mildly calcified aortic arch and descending thoracic aorta. Dorsal spine demonstrates change. Normal visualized ribs, clavicles, and shoulders. There is no demonstrated abnormality of the visualized soft tissue structures of the upper abdomen. No significant change since prior exam RAD/Chest 1 View (Portable) IMPRESSION: No acute cardiopulmonary pathology. Electronically Signed: Anuel Rodriguez MD at 18:05 EDT , Service support ,
--- NOTE | 2019-11-22 16:56 | CT_ITS ---
STUDY: CT BRAIN WITHOUT CONTRAST REASON FOR EXAM: Male, 69 years old. NEAR SYNCOPE, BLURRY VISION, EMESIS, CAD-CABG,HTN, A-FIB, CVA 2015 RADIATION DOSAGE (If Supplied By Facility): CTDIvol = ( 44.99 ) mGy, DLP = ( 846.73 ) mGycm TECHNIQUE: Transaxial CT imaging of the brain was performed without administration of intravenous contrast material. Individualized dose optimization techniques were used for this CT. COMPARISON: No relevant priors. FINDINGS: Normal soft tissue structures. Normal calvarium. Normal size ventricles and extra-axial spaces for the patient''s age. Mild periventricular white matter ischemic changes.. Normal basal ganglia and thalami. Normal brainstem. Normal cerebellum. There is no intracranial hemorrhage. There are no findings of an acute ischemic infarction. Normal visualized paranasal sinuses. CT/Brain/Head without Contrast IMPRESSION: Mild periventricular white matter ischemic changes.. No evidence for acute bleed. If concern for acute infarct MRI recommended Electronically Signed: Anuel Rodriguez MD at 17:39 EDT , Service support ,
[2019-11-22 17:06] LABS: Absolute Lymphocyte Count 1.82 X10^3/uL (0.83-4.51); Absolute Neutrophil Count 3.8 X10^3/uL (2.0-7.7); Basophil# 0.07 X10^3/uL; Eosinophil# 0.19 X10^3/uL; Eosinophils% 2.8 % (0-5); Hematocrit 42.2 % (40-54); Hemoglobin 13.5 g/dL (13.0-16.5); Lymphocyte # 1.82 X10^3/ul (4.0); Lymphocyte % 26.5 % (19-41); Mean Corpuscular Hgb 27.7 pg (27.0-32.0); Mean Corpuscular Volume 86.5 fL (80-94); Monocyte# 0.95 X10^3/uL; Monocyte% 13.8 % (0-10); NRBC Flagged by Analyzer 0 % (0-5); Neutrophil # 3.82 X10^3/uL (2.7-7.7); Neutrophil % 55.6 % (47-70); Platelet Count 248 K/mm3 (150-450); RBC Distribution Width CV 14.6 % (11.6-14.6); RBC Distribution Width SD 45.7 fl (35.1-43.9); Red Blood Count 4.88 M/mm3 (4.6-6.2); White Blood Count 6.9 K/mm3 (4.4-11.0)
[2019-11-22 17:19] LABS: Anion Gap 4 (5-15); BUN 21 mg/dL (7-18); BUN/Creat Ratio 16.8 RATIO (10-20); Calcium,Total 9.1 mg/dL (8.5-10.1); Chloride 106 mmol/L (98-107); Creatinine, Serum 1.25 mg/dL (0.70-1.30); EST Glomerular Filtration Rate 61 mL/min (>60); Est Glom Filt Rate - Afr Amer 74 mL/min (>60); Estimated Creatinine Clearance 62.08 ml/min; Glucose 106 mg/dL (74-106); Potassium 4.1 mmol/L (3.5-5.1); Sodium Level 139 mmol/L (136-145)
[2019-11-22 17:44] LABS: Bacteria 0 SEEN /hpf (None Seen); Mucous, Urine 0 SEEN /hpf (<or=2+); Red Blood Cells-Urine 0 SEEN /hpf (0-5); White Blood Cells 0 SEEN /hpf (0-5)
[2019-11-22 17:53] LABS: Color, Urine Yellow (Yellow); Glucose, Dipstick Normal (Normal); Ketone-Dipstick Negative (Negative); Leukocyte Esterase-Dipstick Negative /ul (Negative); Nitrite-Dipstick Negative (Negative); Occult Blood-Urine Negative /ul (Negative); Protein-Dipstick Negative (Negative); Urine Bilirubin Dipstick Negative (Negative); Urine Clarity Clear (Clear); Urine Urobilinogen Normal (Normal)
[2019-11-22] MEDS: Acetaminophen 500 MG Tablet 1000 MG PO (17:55)
[2019-11-22 18:03] LABS: Squamous Epithelial Cells - UA 0-5 SEEN /hpf (0-5)
--- NOTE | 2019-11-22 19:16 | PCM.HP.STD ---
History of Present Illness Date of Admission: 11/22/19 Chief Complaint: Near syncope The patient is a 69 year old [employer] [facility] as below who presents with an episode of near syncope this afternoon. He states that he was sitting on a couch and a dog was sitting on his lap and then the dog jumped off and he became lightheaded, diaphoretic. He had total body numbness and tingling as well as blurry vision in both eyes. He says that all of those symptoms resolved after about 5 to 10 minutes and then he had a headache. He denies any chest pain and he recently saw his mechanical manufacturing technician about 3 weeks ago and had a cardiac stress test which she says was unremarkable. His mechanical manufacturing technician is part of the [facility]. He also had a history of a stroke but he does not think this was similar to his last stroke. He had no focal neurological deficits that he can recall. According to the he does not drink water at all he drinks diet soda. In the ER lab work is unremarkable, his creatinine is 1.25 and his troponin is normal. CT of the brain is also normal with a normal chest x-ray. Past Medical History Past Medical History (Chronic Problems): Chronic Problems Aortic stenosis (Chronic) CAD (coronary artery disease) (Chronic) Cardiac murmur (Chronic) Rheumatic fever (Chronic) Hyperlipidemia (Chronic) Hypertension (Chronic) Atrial fibrillation (Chronic) Allergies Penicillins Allergy (Verified 11/22/19 16:07) Unknown Sulfa (Sulfonamide Antibiotics) Allergy (Verified 11/22/19 16:07) Unknown warfarin [From Coumadin] Adverse Reaction (Verified 11/22/19 16:07) Unknown Home Medications: Ambulatory Orders Medication Instructions Recorded Fluticasone 0.05% [Flonase Nasal 2 spray NASAL PRN PRN 08/14/13 [place]] Atorvastatin Calcium [Lipitor] 40 mg PO QHS tablet 03/10/16 Aspirin [Aspirin, Baby] 81 mg PO DAILY@0800 06/06/16 Hydrochlorothiazide [Hctz] 25 mg PO DAILY 06/06/16 Losartan Potassium [Cozaar] 100 mg PO DAILY 06/06/16 Metoprolol Tartrate [Lopressor 25 mg PO BID 06/06/16 (beta kelsy)] Apixaban [Eliquis] 5 mg PO BID 07/08/16 buPROPion XL [Wellbutrin Xl] 300 mg PO DAILY 01/28/19 Surgical History: coronary bypass surgery, herniorrhaphy, - Psychiatric History: Depression Smoking Status: Never smoker Alcohol: None Drugs: None - *Family History Maternal History Items: Heart Disease Paternal History Items: Heart Disease Sibling History Items: Heart Disease - Brother: CAD; CABG; ischemic cardiomyopathy; status post ICD Review of Systems Constitutional: Denies: Chills, Fever, Weight Change Eyes: Reports: Blurred vision HEENT: Denies: Head Aches, Sinus Congestion, Sinus Drainage Cardiovascular: Reports: Light Headedness. Denies: Chest Pain, Palpitations Respiratory: Denies: Cough, Shortness of breath at rest, Sputum production Gastrointestinal: Reports: Nausea. Denies: Abdominal Pain, Vomiting Genitourinary: Denies: Dysuria Musculoskeletal: Denies: Joint Pain, Joint Tenderness Skin: Denies: Rash, Wounds Neurological: Reports: Headaches, Numbness, Tingling. Denies: Focal weakness Psychiatric: Denies: Anxiety, Depression Hematologic/ Lymphatic: Denies: Easy Bruising, Easy Bleeding VTE Information - Inpt Only VTE Present on Admission: No - Physical Exam Vitals/I&O's: Vital Signs Temp Pulse Resp BP Pulse Ox 98.1 F 61 15 185/92 H 95 11/22/19 18:55 11/22/19 18:55 11/22/19 18:55 11/22/19 18:55 11/22/19 18:55 Oxygen Delivery Method Room Air Weight: 364 lb Body Mass Index (BMI) 49.4 General: Alert, Oriented x3, Cooperative, No apparent distress HEENT: Atraumatic, PERRLA, EOMI, Normocephalic Oral: Dry Mucosa Neck: Supple, No JVD Lungs: Clear to auscultation, Normal air movement, No rhonchi, No wheeze, No rales, Diminished Cardiovascular: Regular rate, Regular Rhythm, Normal S1, Normal S2, No murmurs Abdomen: Soft, Non Tender, Non-Distended, No Hepato-splenomegaly, Obese Extremities: No edema, Capillary Refill Less than 3 Seconds Skin: No rashes, No breakdown Neurological: Cranial nerves II-XII grossly intact, Neuro grossly intact, Motor Exam 5/5 strength throughout, Sensory exam intact to light touch and pain, Coordination normal Psych/Mental Status: Normal Affect, Appropriate Laboratory Results 11/22/19 16:15: WBC 6.9, RBC 4.88, Hgb 13.5, Hct 42.2, MCV 86.5, MCH 27.7, MCHC 32.0, RDW Std Deviation 45.7 H, RDW Coeff of Citlaly 14.6, Plt Count 248, MPV 11.0, Immature Gran % (Auto) 0.300, Neut % (Auto) 55.6, Lymph % (Auto) 26.5, [place] % (Auto) 13.8 H, Eos % (Auto) 2.8, Baso % (Auto) 1.0, Absolute Neuts (auto) 3.8, Absolute Lymphs (auto) 1.82, Nucleated RBC % 0 11/22/19 16:15: Sodium 139, Potassium 4.1, Chloride 106, Carbon Dioxide 29.0, Anion Gap 4 L, BUN 21 H, Creatinine 1.25, Estim Creat Clear Calc 62.08, Est GFR (MDRD) Af Amer 74, Est GFR (MDRD) Non-Af 61, BUN/Creatinine Ratio 16.8, Glucose 106, Calcium 9.1, Troponin I < 0.015 11/22/19 17:30: Urine Color Yellow, Urine Clarity Clear, Urine pH 6.0, Ur Specific [place] 1.010, Urine Protein Negative, Urine Glucose (UA) Normal, Urine Ketones Negative, Urine Occult Blood Negative, Urine Nitrite Negative, Urine Bilirubin Negative, Urine Urobilinogen Normal, Ur Leukocyte Esterase Negative, Urine RBC 0 SEEN, Urine WBC 0 SEEN, Ur Squamous Epith Cells 0-5 SEEN, Urine Bacteria 0 SEEN, Urine Mucus 0 SEEN Assessment/Plan 1. Near syncope versus TIA/HTN/HLD/CAD status post CABG/aortic valve repair and A. fib/morbid obesity -BMI is 49.4, discussed lifestyle modification to place him on a 2000-calorie cardiac diet -blood pressure is little bit elevated today this is likely secondary to stress as well as a small blood pressure cuff, with adjustments his blood pressure came down from 185 to 160 systolic -We will obtain orthostatic vital signs -His history sounds more like near syncope given that he had total body numbness tingling with diaphoresis and blurry vision, this is not consistent with a stroke. Also he is already on Eliquis, aspirin, and Lipitor -We will continue with IV fluids at 100 as well as an echo, he did have a cardiac stress test 3 weeks ago at the [facility] which is reportedly normal -We will continue with his home blood pressure medications and monitor his blood pressure. If it is elevated during his stay can consider increasing his blood pressure medications 2. Depression/anxiety -Stable -Continue with Wellbutrin DVT: Darius OBSV E&M: 42180 Initial observation care L3
--- NOTE | 2019-11-22 19:24 | ED.VISSUMM ---
- ER Visit Summary Date of Service: 11/22/19 Chief Complaint: Dizziness History of Present Illness: The patient is a 69 M presenting after near syncopal episode. Patient states he was sitting in chair and suddenly started to feel lightheaded with blurry vision. He states he was unable to stand up and was very dizzy. He denies headache at the time. Denies chest pain. States he had vomiting x1. He states he had diarrhea several hours prior to this. He denies fever or recent illness. His symptoms have improved. He now complains of mild headache. Physical Examination: Vitals are stable. Patient is afebrile. Alert no acute distress. HEENT exam is unremarkable. Neck is supple. Lungs are clear and equal bilaterally. Heart is regular rate and rhythm. Abdomen is soft nontender nondistended. Extremities are unremarkable. Skin is warm and dry. No focal neurologic deficit. NIH 0 Remainder of exam is unremarkable. Emergency Department Course and Treatment: Chest x-ray shows no acute process. CT head shows mild periventricular white matter ischemic changes.. No evidence for acute bleed. If concern for acute infarct MRI recommended. EKG is sinus bradycardia rate of 59. CBC, chemistries unremarkable. Urinalysis unremarkable. Troponin is negative. On reevaluation, patient complains of mild headache. He was given Tylenol. Discussed with the hospitalist for observation. Disposition: Observation Impression: Near syncope This note was generated with [employer] dictation software. It may contain incorrect words, spelling, and punctuation that were not noted in review of the chart prior to signing ED Disposition - Plan for ED Patient: Disposition: Acute Care Hospital [facility]
[2019-11-22] MEDS: Metoprolol Tartrate 25 MG Tablet PO (21:17)
[2019-11-22] MEDS: 0.9% Normal Saline 1,000 ML 100 ML IV (21:17)
[2019-11-22] MEDS: Atorvastatin Calcium 40 MG Tablet PO (21:18)
[2019-11-22] MEDS: APIXABAN 5 MG TABLET PO (21:18)
[2019-11-22] MEDS: MELATONIN 3 MG TABLET PO (23:24)
[2019-11-23] MEDS: Acetaminophen 325 MG Tablet 650 MG PO ×2 (02:21→09:34)
[2019-11-23 02:59] VITALS: PULSE 60
[2019-11-23 05:00] VITALS: BP 151/87; PULSE 57; RESP 18; TEMP 36.9; O2SAT 95
[2019-11-23 05:34] VITALS: BP 151/87; BP 167/94; BP 181/95; PULSE 52; PULSE 57; PULSE 77
[2019-11-23 06:22] LABS: Absolute Lymphocyte Count 1.13 X10^3/uL (0.83-4.51); Absolute Neutrophil Count 3.9 X10^3/uL (2.0-7.7); Basophil# 0.06 X10^3/uL; Eosinophil# 0.15 X10^3/uL; Eosinophils% 2.6 % (0-5); Hematocrit 40.9 % (40-54); Hemoglobin 12.9 g/dL (13.0-16.5); Lymphocyte # 1.13 X10^3/ul (4.0); Lymphocyte % 19.4 % (19-41); Mean Corp Hgb Conc 31.5 g/dL (32-36); Mean Corpuscular Hgb 27.3 pg (27.0-32.0); Mean Corpuscular Volume 86.5 fL (80-94); Mean Platelet Vol. 10.2 fl (6.2-12.0); Monocyte# 0.57 X10^3/uL; Monocyte% 9.8 % (0-10); NRBC Flagged by Analyzer 0 % (0-5); Platelet Count 179 K/mm3 (150-450); RBC Distribution Width CV 14.6 % (11.6-14.6); RBC Distribution Width SD 46.5 fl (35.1-43.9); Red Blood Count 4.73 M/mm3 (4.6-6.2); White Blood Count 5.8 K/mm3 (4.4-11.0)
[2019-11-23] MEDS: 0.9% Normal Saline 1,000 ML 100 ML IV (06:31)
[2019-11-23 06:41] LABS: Anion Gap 4 (5-15); BUN 17 mg/dL (7-18); BUN/Creat Ratio 13.9 RATIO (10-20); Calcium,Total 8.8 mg/dL (8.5-10.1); Chloride 107 mmol/L (98-107); Creatinine, Serum 1.22 mg/dL (0.70-1.30); EST Glomerular Filtration Rate 63 mL/min (>60); Est Glom Filt Rate - Afr Amer 76 mL/min (>60); Estimated Creatinine Clearance 63.61 ml/min; Glucose 102 mg/dL (74-106); Potassium 4.1 mmol/L (3.5-5.1); Sodium Level 140 mmol/L (136-145)
[2019-11-23 07:29] VITALS: PULSE 62
[2019-11-23 09:25] VITALS: BP 152/84; PULSE 66; RESP 16; TEMP 36.4; O2SAT 95
[2019-11-23 09:33] VITALS: PULSE 66
[2019-11-23] MEDS: Metoprolol Tartrate 25 MG Tablet PO (09:33)
[2019-11-23] MEDS: Losartan Potassium 100 MG Tablet PO (09:33)
[2019-11-23] MEDS: hydroCHLOROthiazide 25 MG Tablet PO (09:33)
[2019-11-23] MEDS: Aspirin 81 MG TAB.CHEW PO (09:34)
[2019-11-23] MEDS: APIXABAN 5 MG TABLET PO (09:34)
--- NOTE | 2019-11-23 10:12 | EKG12_ITS ---
Test Reason : ROUTINE Blood Pressure : / mmHG Vent. Rate : 060 BPM Atrial Rate : 060 BPM P-R Int : 200 ms QRS Dur : 100 ms QT Int : 430 ms P-R-T Axes : 026 011 079 degrees QTc Int : 430 ms Normal sinus rhythm with sinus arrhythmia Inferior infarct , age undetermined Abnormal ECG When compared with ECG of 28-JAN-2019 12:17, Nonspecific T wave abnormality, improved in Anterolateral leads Confirmed by LAN BOWEN ([id number]), editorial director ANTHONY GIRALDO ([id number]) on 11/26/2019 12:48:44 PM Referred By: LAKISHA Confirmed By:LAN BOWEN
--- NOTE | 2019-11-23 11:52 | PCM.DC ---
You will use the following diet at home:: Cardiac Your food should be the consistency of: Regular Your liquids should be the consistency of: Regular/Thin Discharge Activity: Return to Normal Activity Allergies/Adverse Reactions: Allergies Penicillins Allergy (Verified 11/22/19 16:07) Unknown Sulfa (Sulfonamide Antibiotics) Allergy (Verified 11/22/19 16:07) Unknown warfarin [From Coumadin] Adverse Reaction (Verified 11/22/19 16:07) Unknown Medications to take at Discharge Fluticasone 0.05% [Flonase Nasal [place]] 2 spray NASAL PRN PRN 08/14/13 Atorvastatin Calcium [Lipitor] 40 mg PO QHS tablet 03/10/16 Aspirin [Aspirin, Baby] 81 mg PO DAILY@0800 06/06/16 Hydrochlorothiazide [Hctz] 25 mg PO DAILY 06/06/16 Losartan Potassium [Cozaar] 100 mg PO DAILY 06/06/16 Metoprolol Tartrate [Lopressor (beta kelsy)] 25 mg PO BID 06/06/16 Apixaban [Eliquis] 5 mg PO BID 07/08/16 buPROPion XL [Wellbutrin Xl] 300 mg PO DAILY 01/28/19 Primary Care Physician: Care Physician,No Primary [Primary Care Provider] - Please follow up with your Primary Care Physician in: 1-2 weeks Test Results: Test results from this visit will be discussed in further detail at your follow-up appointment, if applicable. Proposed Discharge Date: 11/23/19
--- NOTE | 2019-11-23 12:10 | DS.PCM_ITS ---
<Jeff Hay - Last Filed: 11/23/19 12:10> Discharge Date and Diagnosis Date of Admission: 11/22/19 Date of Discharge: 11/23/19 - Primary Discharge Diagnosis Acute Problems: Near syncope 2/2 dehydration, orthostatic hypotension - Secondary Discharge Diagnosis Chronic Problems: Chronic Problems Aortic stenosis (Chronic) CAD (coronary artery disease) (Chronic) Cardiac murmur (Chronic) Rheumatic fever (Chronic) Hyperlipidemia (Chronic) Hypertension (Chronic) Atrial fibrillation (Chronic) Hospital Course and Treatment Imaging Results: IMAGING: CT/Brain/Head without Contrast IMPRESSION: Mild periventricular white matter ischemic changes.. No evidence for acute bleed. If concern for acute infarct MRI recommended RAD/Chest 1 View (Portable) IMPRESSION: No acute cardiopulmonary pathology. 2D TTE: Moderate concentric LVH EF 75% Left atrium moderately enlarged Unable to estimate RV systolic pressure Unable to assess aortic valve due to poor window EF improved from 50 to 75%. Operations: None Procedures: 2-D Echocardiogram Summary of Care Provided: Hospital course: The patient is a 69 year old M with past medical history notable for paroxysmal atrial fibrillation, aortic valve replacement with bovine aortic valve, history of CAD, who presented to the emergency room with complaints of near syncope. The patient was sitting on his couch and had a dog that was approximately 40 pounds sitting on his lap. The dog got up and jumped off of him and the patient became lightheaded. The patient was unable to stand up because he felt weak. He became nauseous and vomited x1. After about 5 minutes the symptoms passed, and he had a residual frontal headache bilaterally. He had a stress test about 3 weeks ago that was unremarkable. He had no focal deficits. The patient was admitted to the hospital and placed on telemetry. In the ER CT of the brain was negative, chest x-ray was negative, troponin was negative, urinalysis was negative. He had normal sinus rhythm and no episodes of atrial fibrillation whi le here. He underwent an echocardiogram with results as above, no concerning findings at this time. An EKG was obtained and demonstrated sinus rhythm, No ischemic changes. Initial labs demonstrated a mildly elevated BUN, and the patient admitted that he had not been drinking any water but only diet pop throughout the day. He was felt to have had an orthostatic episode possibly complicated by increased vagal tone due to a dog sitting in his lap and jumping off of him. Orthostatic vitals were negative when checked here. He did report that this episode felt similar to when he had been on a medication in the past that gave him orthostatic hypotension: Every time he stood up out of the car he would get lightheaded-he cannot remember the name of that medication but says that he is off of it now. The patient was discharged home in stable condition. He will need follow-up with his PCP in 1 to 2 weeks. This patient was seen by Jeff Hay PA-C under the supervision of Doctor Patricia. [] - Physical Exam Vitals/I&O's: Vital Signs Temp Pulse Resp BP Pulse Ox 97.6 F L 66 16 152/84 H 95 11/23/19 09:25 11/23/19 09:33 11/23/19 09:25 11/23/19 09:25 11/23/19 09:25 Oxygen Delivery Method Room Air Weight: 355 lb 9.69 oz Body Mass Index (BMI) 48.2 Orthostatic Vital Signs Start: 11/23/19 00:10 Freq: 0500 Status: Active Protocol: Activity Type Activity Date Activity User E-Sign Co-Sign Detail Recorded Client Recorded Date Recorded By Document 11/23/19 05:34 CM [id number] 11/23/19 05:37 CM 11/23/19 05:34 Orthostatic Vitals Standing -Blood Pressure (90/60-120/80) 167/94 H -Extremity Use Right Arm -Pulse Rate (60-100) 77 Sitting -Blood Pressure (90/60-120/80) 181/95 H -Extremity Use Right Arm -Pulse Rate (60-100) 52 L Lying -Blood Pressure (90/60-120/80) 151/87 H -Extremity Use Right Arm -Pulse Rate (60-100) 57 L Intake and Output for Last 24 Hours 11/21/19 11/22/19 11/23/19 23:59 23:59 23:59 Intake Total 480 / 480 1023.33 / 1023.33 Balance 480 / 480 1023.33 / 1023.33 General: Alert, Oriented x3, Cooperative HEENT: Atraumatic, PERRLA, EOMI, Normocephalic Neck: Supple, No JVD, Negative Carotid Bruits Lungs: Clear to auscultation, Normal air movement Cardiovascular: Regular rate, Murmur - 2/6 sytolic murmur LSB 2nd ICS Abdomen: Bowel Sounds Present, Soft, Non Tender, Obese Extremities: No edema, Capillary Refill Less than 3 Seconds Skin: No rashes, No breakdown Musculoskeletal: No Tenderness to Palpation of Joints or Extremities Neurological: Cranial nerves II-XII grossly intact Psych/Mental Status: Normal Affect, Appropriate, Alert and oriented to time, place, person, mood and affect Laboratory Results 11/22/19 16:15: WBC 6.9, RBC 4.88, Hgb 13.5, Hct 42.2, MCV 86.5, MCH 27.7, MCHC 32.0, RDW Std Deviation 45.7 H, RDW Coeff of Citlaly 14.6, Plt Count 248, MPV 11.0, Immature Gran % (Auto) 0.300, Neut % (Auto) 55.6, Lymph % (Auto) 26.5, [place] % (Auto) 13.8 H, Eos % (Auto) 2.8, Baso % (Auto) 1.0, Absolute Neuts (auto) 3.8, Absolute Lymphs (auto) 1.82, Nucleated RBC % 0 11/22/19 16:15: Sodium 139, Potassium 4.1, Chloride 106, Carbon Dioxide 29.0, Anion Gap 4 L, BUN 21 H, Creatinine 1.25, Estim Creat Clear Calc 62.08, Est GFR (MDRD) Af Amer 74, Est GFR (MDRD) Non-Af 61, BUN/Creatinine Ratio 16.8, Glucose 106, Calcium 9.1, Troponin I < 0.015 11/22/19 17:30: Urine Color Yellow, Urine Clarity Clear, Urine pH 6.0, Ur Specific [place] 1.010, Urine Protein Negative, Urine Glucose (UA) Normal, Urine Ketones Negative, Urine Occult Blood Negative, Urine Nitrite Negative, Urine Bilirubin Negative, Urine Urobilinogen Normal, Ur Leukocyte Esterase Negative, Urine RBC 0 SEEN, Urine WBC 0 SEEN, Ur Squamous Epith Cells 0-5 SEEN, Urine Bacteria 0 SEEN, Urine Mucus 0 SEEN 11/23/19 06:16: WBC 5.8, RBC 4.73, Hgb 12.9 L, Hct 40.9, MCV 86.5, MCH 27.3, MCHC 31.5 L, RDW Std Deviation 46.5 H, RDW Coeff of Citlaly 14.6, Plt Count 179, MPV 10.2, Immature Gran % (Auto) 0.200, Neut % (Auto) 67.0, Lymph % (Auto) 19.4, Preston % (Auto) 9.8, Eos % (Auto) 2.6, Baso % (Auto) 1.0, Absolute Neuts (auto) 3.9, Absolute Lymphs (auto) 1.13, Nucleated RBC % 0 11/23/19 06:16: Sodium 140, Potassium 4.1, Chloride 107, Carbon Dioxide 29.0, Anion Gap 4 L, BUN 17, Creatinine 1.22, Estim Creat Clear Calc 63.61, Est GFR (MDRD) Af Amer 76, Est GFR (MDRD) Non-Af 63, BUN/Creatinine Ratio 13.9, Glucose 102, Calcium 8.8 Current Medications Acetaminophen (Tylenol) 650 mg PO Q6H PRN PRN PRN Reason: Pain Score 1-10/Temp > 100.7 F Last Admin: 11/23/19 09:34 Dose: 650 mg Documented by: Apixaban (Eliquis) 5 mg PO BID [facility] Last Admin: 11/23/19 09:34 Dose: 5 mg Documented by: Aspirin (Aspirin, Baby) 81 mg PO DAILY@0800 [facility] Last Admin: 11/23/19 09:34 Dose: 81 mg Documented by: Atorvastatin Calcium (Lipitor) 40 mg PO QHS [facility] Last Admin: 11/22/19 21:18 Dose: 40 mg Documented by: Bupropion HCl (Wellbutrin Xl) 300 mg PO DAILY [facility] Fluticasone Propionate (Flonase Nasal [place]) 2 spray NASAL DAILY PRN PRN PRN Reason: CONGESTION Hydrochlorothiazide (Hctz) 25 mg PO DAILY [facility] Last Admin: 11/23/19 09:33 Dose: 25 mg Documented by: Sodium Chloride () 1,000 mls @ 100 mls/hr IV .Q10H [facility] Last Admin: 11/23/19 06:31 Dose: 100 mls/hr Documented by: Losartan Potassium (Cozaar) 100 mg PO DAILY [facility] Last Admin: 11/23/19 09:33 Dose: 100 mg Documented by: Melatonin (Melatonin) 3 mg PO QHS PRN PRN PRN Reason: INSOMNIA Last Admin: 11/22/19 23:24 Dose: 3 mg Documented by: Metoprolol Tartrate (Lopressor (Beta Brain)) 25 mg PO BID [facility] Last Admin: 11/23/19 09:33 Dose: 25 mg Documented by: Ondansetron HCl (Zofran) 4 mg IV Q8H PRN PRN PRN Reason: NAUSEA/VOMITING Sodium Chloride () 10 - 40 ml IV UD PRN PRN Reason: SALINE FLUSH Discharge Diet: Low fat/ Low Cholesterol, 2000 mg Sodium Diet Discharge Activity: Return to Normal Activity Home Medications: Medications to take at Discharge Fluticasone 0.05% [Flonase Nasal [place]] 2 spray NASAL PRN PRN 08/14/13 Atorvastatin Calcium [Lipitor] 40 mg PO QHS tablet 03/10/16 Aspirin [Aspirin, Baby] 81 mg PO DAILY@0800 06/06/16 Hydrochlorothiazide [Hctz] 25 mg PO DAILY 06/06/16 Losartan Potassium [Cozaar] 100 mg PO DAILY 06/06/16 Metoprolol Tartrate [Lopressor (beta brain)] 25 mg PO BID 06/06/16 Apixaban [Eliquis] 5 mg PO BID 07/08/16 buPROPion XL [Wellbutrin Xl] 300 mg PO DAILY 01/28/19 Primary Care Physician: Care Physician,No Primary [Primary Care Provider] - Please follow up with your Primary Care Physician in: 1-2 weeks Medical Necessity - Tobacco Use Smoking Status: Never smoker Meaningful Use Info Meaningful Use Diagnoses (Choose all that apply): None applicable <Wilmer Gomez - Last Filed: 11/23/19 12:32> Discharge Date and Diagnosis - Secondary Discharge Diagnosis Chronic Problems: Chronic Problems Aortic stenosis (Chronic) CAD (coronary artery disease) (Chronic) Cardiac murmur (Chronic) Rheumatic fever (Chronic) Hyperlipidemia (Chronic) Hypertension (Chronic) Atrial fibrillation (Chronic) Hospital Course and Treatment Summary of Care Provided: Hospitalist note: Discharge summary above reviewed and I concur with above discharge treatment plan. Patient admitted because of reported near syncopal episode. This is attributed to dehydration and orthostatic hypotension. His EKG revealed normal sinus rhythm without evidence of acute segment changes. CT scan brain showed no acute findings. Chest x-ray showed no acute infiltrate or consolidation. Troponin was negative. Routine blood work was unremarkable. Urinalysis showed no evidence of infection. On telemetry, there was no evidence of cardiac arrhythmias. Patient did have a history of bioprosthetic aortic valve replacement. 2D echocardiogram done and showed moderate LVH, ejection fraction 75%, they were unable to assess aortic valve gradient due to poor echo windows. Patient discharged home in a stable medical condition, discharged on his previous home medications without any changes, recommended follow-up with PCP in 1 to 2 weeks. - Physical Exam General: Alert, Oriented x3, Cooperative, No apparent distress. HEENT: Atraumatic, PERRLA, EOMI. Neck: Supple, No JVD, Negative Carotid Bruits, Trachea Midline, Thyroid Normal. Lungs: Clear to auscultation, Normal air movement, No rhonchi, No wheeze, No rales. Cardiovascular: Regular rate, Regular Rhythm, Normal S1, Normal S2, PMI Normal. Abdomen: Bowel Sounds Present, Soft, Non Tender, Non-Distended, No Hepato- splenomegaly. Extremities: No clubbing, No cyanosis, No edema Skin: No rashes, No breakdown Neurological: Cranial is intact, neuro grossly intact Vital Signs are stable. This note was generated with [employer] dictation software. It may contain incorrect words, spelling, and punctuation that were not noted in checking the note before signing. - Physical Exam Vitals/I&O's: Vital Signs Temp Pulse Resp BP Pulse Ox 97.6 F L 66 16 152/84 H 95 11/23/19 09:25 11/23/19 09:33 11/23/19 09:25 11/23/19 09:25 11/23/19 09:25 Oxygen Delivery Method Room Air Weight: 355 lb 9.69 oz Body Mass Index (BMI) 48.2 Orthostatic Vital Signs Start: 11/23/19 00:10 Freq: 0500 Status: Active Protocol: Activity Type Activity Date Activity User E-Sign Co-Sign Detail Recorded Client Recorded Date Recorded By Document 11/23/19 05:34 CM [id number] 11/23/19 05:37 CM 11/23/19 05:34 Orthostatic Vitals Standing -Blood Pressure (90/60-120/80) 167/94 H -Extremity Use Right Arm -Pulse Rate (60-100) 77 Sitting -Blood Pressure (90/60-120/80) 181/95 H -Extremity Use Right Arm -Pulse Rate (60-100) 52 L Lying -Blood Pressure (90/60-120/80) 151/87 H -Extremity Use Right Arm -Pulse Rate (60-100) 57 L Intake and Output for Last 24 Hours 11/21/19 11/22/19 11/23/19 23:59 23:59 23:59 Intake Total 480 / 480 1023.33 / 1023.33 Balance 480 / 480 1023.33 / 1023.33 Laboratory Results 11/22/19 16:15: WBC 6.9, RBC 4.88, Hgb 13.5, Hct 42.2, MCV 86.5, MCH 27.7, MCHC 32.0, RDW Std Deviation 45.7 H, RDW Coeff of Citlaly 14.6, Plt Count 248, MPV 11.0, Immature Gran % (Auto) 0.300, Neut % (Auto) 55.6, Lymph % (Auto) 26.5, [place] % (Auto) 13.8 H, Eos % (Auto) 2.8, Baso % (Auto) 1.0, Absolute Neuts (auto) 3.8, Absolute Lymphs (auto) 1.82, Nucleated RBC % 0 11/22/19 16:15: Sodium 139, Potassium 4.1, Chloride 106, Carbon Dioxide 29.0, Anion Gap 4 L, BUN 21 H, Creatinine 1.25, Estim Creat Clear Calc 62.08, Est GFR (MDRD) Af Amer 74, Est GFR (MDRD) Non-Af 61, BUN/Creatinine Ratio 16.8, Glucose 106, Calcium 9.1, Troponin I < 0.015 11/22/19 17:30: Urine Color Yellow, Urine Clarity Clear, Urine pH 6.0, Ur Specific [place] 1.010, Urine Protein Negative, Urine Glucose (UA) Normal, Urine Ketones Negative, Urine Occult Blood Negative, Urine Nitrite Negative, Urine Bilirubin Negative, Urine Urobilinogen Normal, Ur Leukocyte Esterase Negative, Urine RBC 0 SEEN, Urine WBC 0 SEEN, Ur Squamous Epith Cells 0-5 SEEN, Urine Bacteria 0 SEEN, Urine Mucus 0 SEEN 11/23/19 06:16: WBC 5.8, RBC 4.73, Hgb 12.9 L, Hct 40.9, MCV 86.5, MCH 27.3, MCHC 31.5 L, RDW Std Deviation 46.5 H, RDW Coeff of Citlaly 14.6, Plt Count 179, MPV 10.2, Immature Gran % (Auto) 0.200, Neut % (Auto) 67.0, Lymph % (Auto) 19.4, [place] % (Auto) 9.8, Eos % (Auto) 2.6, Baso % (Auto) 1.0, Absolute Neuts (auto) 3.9, Absolute Lymphs (auto) 1.13, Nucleated RBC % 0 11/23/19 06:16: Sodium 140, Potassium 4.1, Chloride 107, Carbon Dioxide 29.0, Anion Gap 4 L, BUN 17, Creatinine 1.22, Estim Creat Clear Calc 63.61, Est GFR (MDRD) Af Amer 76, Est GFR (MDRD) Non-Af 63, BUN/Creatinine Ratio 13.9, Glucose 102, Calcium 8.8 Current Medications Acetaminophen (Tylenol) 650 mg PO Q6H PRN PRN PRN Reason: Pain Score 1-10/Temp > 100.7 F Last Admin: 11/23/19 09:34 Dose: 650 mg Documented by: Apixaban (Eliquis) 5 mg PO BID [facility] Last Admin: 11/23/19 09:34 Dose: 5 mg Documented by: Aspirin (Aspirin, Baby) 81 mg PO DAILY@0800 [facility] Last Admin: 11/23/19 09:34 Dose: 81 mg Documented by: Atorvastatin Calcium (Lipitor) 40 mg PO QHS [facility] Last Admin: 11/22/19 21:18 Dose: 40 mg Documented by: Bupropion HCl (Wellbutrin Xl) 300 mg PO DAILY [facility] Last Admin: 11/23/19 12:20 Dose: 300 mg Documented by: Fluticasone Propionate (Flonase Nasal [place]) 2 spray NASAL DAILY PRN PRN PRN Reason: CONGESTION Hydrochlorothiazide (Hctz) 25 mg PO DAILY [facility] Last Admin: 11/23/19 09:33 Dose: 25 mg Documented by: Sodium Chloride () 1,000 mls @ 100 mls/hr IV .Q10H [facility] Last Admin: 11/23/19 06:31 Dose: 100 mls/hr Documented by: Losartan Potassium (Cozaar) 100 mg PO DAILY [facility] Last Admin: 11/23/19 09:33 Dose: 100 mg Documented by: Melatonin (Melatonin) 3 mg PO QHS PRN PRN PRN Reason: INSOMNIA Last Admin: 11/22/19 23:24 Dose: 3 mg Documented by: Metoprolol Tartrate (Lopressor (Beta Brain)) 25 mg PO BID [facility] Last Admin: 11/23/19 09:33 Dose: 25 mg Documented by: Ondansetron HCl (Zofran) 4 mg IV Q8H PRN PRN PRN Reason: NAUSEA/VOMITING Sodium Chloride () 10 - 40 ml IV UD PRN PRN Reason: SALINE FLUSH Disposition: Home Minutes spent on discharge:: 27 Patient Condition:: Stable Meaningful Use Info Meaningful Use Diagnoses (Choose all that apply): None applicable OBSV E&M: 39657 Observation care discharge
[2019-11-23] MEDS: buPROPion (XL) 300 MG TABLET.XL PO (12:20)
== END 2019-11-23 11:52 | disposition home or self-care (01) ==
LOC: ED 16:42 → PCU 19:56
PROVIDERS: Admitting Provider Family Medicine; Emergency Provider Emergency Medicine; Visit Provider Hospitalist
DX: I95.1 Orthostatic hypotension (principal); E86.0 Dehydration; E78.5 Hyperlipidemia, unspecified; I25.10 Atherosclerotic heart disease of native coronary artery without angina pectoris; F41.9 Anxiety disorder, unspecified; I48.0 Paroxysmal atrial fibrillation; I10 Essential (primary) hypertension; Z79.899 Other long term (current) drug therapy; Z79.01 Long term (current) use of anticoagulants; Z79.82 Long term (current) use of aspirin; F32.9 Major depressive disorder, single episode, unspecified; Z95.1 Presence of aortocoronary bypass graft; Z95.3 Presence of xenogenic heart valve
CPT/HCPCS: 36415; 70450; 71045; 80048; 81001; 84484; 85025; 93005; 93308; 96360; 96361; 99218; 99285; J7030; Q9957; A4216; C8924; G0378

== ENCOUNTER 2020-04-25 20:38 | Inpatient (IN) | payer MEDICARE, OTHER, SELFPAY ==
[2019-11-22 19:34] VITALS: BMI 48.2
[2020-04-25] VITALS (7 sets, daily range): BP systolic 143–154; BP diastolic 66–85; PULSE 73–79; RESP 12–32; TEMP 37–38.3; O2SAT 88–98; BMI 48.8; BMI 50.0
--- NOTE | 2020-04-25 20:54 | EKG12_ITS ---
Test Reason : SOB Blood Pressure : / mmHG Vent. Rate : 076 BPM Atrial Rate : 076 BPM P-R Int : 178 ms QRS Dur : 094 ms QT Int : 362 ms P-R-T Axes : 028 000 086 degrees QTc Int : 407 ms Normal sinus rhythm T wave abnormality, consider lateral ischemia Abnormal ECG Confirmed by KATIA WU, EMERITA ([id number]), editor index JERRELL GILMAN ([id number]) on 05/01/2020 10:04:20 AM Referred By: JET Confirmed By:MARSHA MONTALVO MD
--- NOTE | 2020-04-25 20:54 | RAD_ITS ---
STUDY: X-RAY CHEST REASON FOR EXAM: Male, 69 years old. sob TECHNIQUE: AP COMPARISON: 11/22/2019 FINDINGS: EKG leads project over the chest. Sternal wires and mediastinal surgical clips compatible with prior CABG. Central pulmonary vascular congestion with central dominant interstitial opacities, new since the prior study. There is no demonstrated pleural abnormality. Normal size heart. Normal mediastinum and katie. There is prominence of the pulmonary hilar arteries and peripheral pulmonary arteries, consistent with congestive heart failure (CHF). There is atherosclerotic calcification of the aortic arch with tortuosity. There is demineralization of the osseous structures. Normal visualized ribs, clavicles, and shoulders. There is no demonstrated abnormality of the visualized soft tissue structures of the upper abdomen. RAD/Chest 1 View (Portable) IMPRESSION: 1. Vascular congestion and interstitial edema, new since the prior study. Electronically Signed: Eduardo Figueroa MD ([place]) at 21:50 EST , Service support ,
--- NOTE | 2020-04-25 20:55 | ED.VIS.GEN ---
History of Present Illness Chief Complaint: Shortness of Breath Informant: Patient Onset: Days Context: Gradual Onset Current Severity: Moderate Maximum Severity: Moderate Narrative: Patient presents with increased shortness of breath and low O2 sats at home. He states he saw his doctor early last week for congestion and shortness of breath. He tested negative for Covid on the , however had a repeat test done on the that was positive. Patient reports increased shortness of breath for the past 2 days with O2 sats 86 to 88% on room air at home. He does report cough. No significant chest pain. Patient does have a history of A. fib and valve replacement and is currently on Eliquis. - Past Medical History (1) Aortic stenosis Status: Chronic (2) Atrial fibrillation Status: Chronic (3) CAD (coronary artery disease) Status: Chronic (4) Hyperlipidemia Status: Chronic (5) Hypertension Status: Chronic (6) Rheumatic fever Status: Chronic Past Medical History - Allergies and Home Meds Allergies/Adverse Reactions: Allergies Penicillins Allergy (Verified 04/25/20 20:39) Unknown Sulfa (Sulfonamide Antibiotics) Allergy (Verified 04/25/20 20:39) Unknown warfarin [From Coumadin] Adverse Reaction (Verified 04/25/20 20:39) Unknown Prior records reviewed: Yes Surgical History: coronary bypass surgery, herniorrhaphy, - Smoking Status: Never smoker - Family History Maternal Family History: Reports: Heart Disease Paternal Family History: Reports: Heart Disease Sibling Family History: Reports: Heart Disease - Brother: CAD; CABG; ischemic cardiomyopathy; status post ICD Review of Systems General: Reports: Fever Eyes: Denies: Visual changes - bilaterally ENT: Denies: Bilateral ear pain Cardiovascular: Denies: Chest pain Respiratory: Reports: Dyspnea, Cough Gastrointestinal: Denies: Vomiting, Diarrhea Genitourinary: Denies: Dysuria Musculoskeletal: Denies: Extremity Pain Neurological: Denies: Headache Hematologic: Denies: Easy bruising, Easy bleeding Allergy: Denies: Uticaria Physical Exam Vital Signs/Narrative: Vital Signs Temp Pulse Resp BP Pulse Ox 04/25/20 20:39 100.1 F H 78 32 H 143/82 H 88 Inital Vital Signs reviewed: Yes General: Well nourished, Well developed Head: Normocephalic Neck: Supple Cardiovascular: Regular rate, Regular rhythm Respiratory: Diminished Abdomen: Soft, Nontender, Hypoactive bowel sounds Extremities: - - 2+ bilateral lower extremity edema, symmetric Skin: Normal color Neurological: Alert, Oriented x3 Psychological: Normal affect Diagnostic/Tx/Re-eval Chest X-Ray - ED: 1 View, Read by ED Physician, CHF, Right Infiltrate, Left Infiltrate - EKG Initial EKG Interpretation: Sinus Rhythm - Sinus at 76. No acute ischemia. - Medical Decision Making Patient was placed on nasal cannula on arrival. His O2 sat did drop to 84% getting from the wheelchair into bed. On 5 L O2 sat came up to the 95 to 97%, however patient still remained quite tachypneic. Chest x-ray per my interpretation does look wet. I discussed placing him on BiPAP to help displace and without fluid to see if that improves his respiratory state. Blood work is grossly unremarkable. Patient was given a dose of Decadron on arrival along with Tylenol for low-grade fever. He will be admitted for further treatment. ED Disposition - Plan for ED Patient: Disposition: Acute Care Hospital [facility] Diagnosis: COVID-19
[2020-04-25] MEDS: Acetaminophen 500 MG Tablet 1000 MG PO (21:22)
[2020-04-25] MEDS: dexAMETHasone 10 MG/ML Vial 6 MG IV (21:23)
[2020-04-25 21:26] LABS: Absolute Lymphocyte Count 0.72 X10^3/uL (0.83-4.51); Absolute Neutrophil Count 3.5 X10^3/uL (2.0-7.7); Hematocrit 44.8 % (40-54); Hemoglobin 14.2 g/dL (13.0-16.5); Lymphocyte # 0.72 X10^3/ul (4.0); Lymphocyte % 15.8 % (19-41); Mean Corp Hgb Conc 31.7 g/dL (32-36); Mean Corpuscular Hgb 27.4 pg (27.0-32.0); Mean Corpuscular Volume 86.5 fL (80-94); Mean Platelet Vol. 9.7 fl (6.2-12.0); Monocyte# 0.28 X10^3/uL; Monocyte% 6.2 % (0-10); NRBC Flagged by Analyzer 0 % (0-5); Neutrophil # 3.53 X10^3/uL (2.7-7.7); Neutrophil % 77.6 % (47-70); Platelet Count 170 K/mm3 (150-450); RBC Distribution Width CV 14.9 % (11.6-14.6); RBC Distribution Width SD 47.7 fl (35.1-43.9); Red Blood Count 5.18 M/mm3 (4.6-6.2); White Blood Count 4.6 K/mm3 (4.4-11.0)
[2020-04-25 21:46] LABS: AST(SGOT) 48 U/L (15-37); Alanine Aminotransfer ALT/SGPT 25 U/L (16-61); Albumin, Serum 3.1 g/dL (3.2-5.0); Alkaline Phosphatase 61 U/L (45-117); Anion Gap 7 (5-15); BUN 31 mg/dL (7-18); BUN/Creat Ratio 21.5 RATIO (10-20); Bilirubin, Direct 0.07 mg/dL (0.00-0.30); Calcium,Total 8.7 mg/dL (8.5-10.1); Chloride 99 mmol/L (98-107); Creatinine, Serum 1.44 mg/dL (0.70-1.30); EST Glomerular Filtration Rate 52 mL/min (>60); Est Glom Filt Rate - Afr Amer 63 mL/min (>60); Estimated Creatinine Clearance 53.89 ml/min; Globulin 4.5 g/dL (2.2-4.2); Glucose 83 mg/dL (74-106); Potassium 4.3 mmol/L (3.5-5.1); Protein, Total 7.6 g/dL (6.4-8.2); Sodium Level 135 mmol/L (136-145)
[2020-04-25 21:50] LABS: Lactic Acid 1.4 mmol/L (0.4-1.9)
[2020-04-25 21:54] LABS: BNP,B-Type NATRIURETIC PEPTIDE 40.1 pg/mL (0-100)
--- NOTE | 2020-04-25 22:32 | HP.PCM_ITS ---
Problem List (1) Acute respiratory failure with hypoxia Status: Acute (2) COVID-19 Status: Acute (3) CAD (coronary artery disease) Status: Chronic (4) Rheumatic fever Status: Chronic (5) Hyperlipidemia Status: Chronic (6) Hypertension Status: Chronic (7) Atrial fibrillation Status: Chronic History of Present Illness Date of Admission: 04/25/20 Chief Complaint: Shortness of breath. The patient is a 69 year old M with past medical history as mentioned above presented to the emergency room because of increasing shortness of breath. Patient stated that his symptoms started around 8 days ago with mild shortness of breath, exertional, associated with sinus congestion as well as mild dry cough and without aggravating or relieving factors. He went to see his PCP and he tested negative for COVID-19 on April 14, 2020. He continued to have symptoms of slowly increasing shortness of breath with cough with minimal sputum and he had another test on April 19 for COVID-19 and that came back positive. Patient mentioned that his breathing has been just getting worse every day, now it is even with minimal exertion and sometimes even at rest, associated with cough with minimal sputum as well as weakness and he mentioned that his pulse ox was around 86 to 88% on room air at home. He denied fever or chills. He denied chest pain, palpitation, dizziness or lightheadedness. In the emergency d epartment, patient had spike of low-grade fever, blood pressure and heart rate were stable, initial pulse ox was 88% on room air and he required up to 5 L of oxygen. Currently, he is on BiPAP. Routine blood work was remarkable for BUN of 31 and creatinine of 1.44. EKG revealed normal sinus rhythm without evidence of acute ischemic changes. LFT was unremarkable. Troponin was negative. Lactic acid was normal. Chest x-ray revealed bilateral pulmonary vascular congestion versus diffuse infiltrate. He is being admitted for acute bilateral COVID-19 pneumonia and acute hypoxic respiratory failure. Past Medical History Past Medical History (Chronic Problems): Chronic Problems Aortic stenosis (Chronic) CAD (coronary artery disease) (Chronic) Cardiac murmur (Chronic) Rheumatic fever (Chronic) Hyperlipidemia (Chronic) Hypertension (Chronic) Atrial fibrillation (Chronic) Allergies Penicillins Allergy (Verified 04/25/20 20:39) Unknown Sulfa (Sulfonamide Antibiotics) Allergy (Verified 04/25/20 20:39) Unknown warfarin [From Coumadin] Adverse Reaction (Verified 04/25/20 20:39) Unknown Home Medications: Ambulatory Orders Medication Instructions Recorded Fluticasone 0.05% [Flonase Nasal 2 spray NASAL PRN PRN 08/14/13 [place]] Atorvastatin Calcium [Lipitor] 40 mg PO QHS tablet 03/10/16 Aspirin [Aspirin, Baby] 81 mg PO DAILY@0800 06/06/16 Hydrochlorothiazide [Hctz] 25 mg PO DAILY 06/06/16 Losartan Potassium [Cozaar] 100 mg PO DAILY 06/06/16 Metoprolol Tartrate [Lopressor 25 mg PO BID 06/06/16 (beta kelsy)] Apixaban [Eliquis] 5 mg PO BID 07/08/16 buPROPion XL [Wellbutrin Xl] 300 mg PO DAILY 01/28/19 Surgical History: coronary bypass surgery, herniorrhaphy, - Psychiatric History: Depression Lives: Spouse/ Significant Other Smoking Status: Never smoker Alcohol: None Drugs: None - *Family History Maternal History Items: Heart Disease Paternal History Items: Heart Disease Sibling History Items: Heart Disease - Brother: CAD; CABG; ischemic cardiomyopathy; status post ICD Review of Systems Constitutional: Reports: Weakness. Denies: Anorexia, Chills, Fever Eyes: Denies: Blurred vision, Double vision, Drainage, Redness HEENT: Reports: Nasal Congestion. Denies: Difficulty Hearing, Ear Pain, Eye Pain, Sore Throat Cardiovascular: Denies: Chest Pain, Chest Pressure, Chest Tightness, Heaviness, Palpitations, Syncope Respiratory: Reports: Cough, Shortness of Breath, Shortness of breath at rest, Shortness of breath upon exertion. Denies: Sputum production, Wheezing Gastrointestinal: Denies: Abdominal Pain, Constipation, Diarrhea, Nausea, Vomiting Genitourinary: Denies: Dysuria, Frequency, Hematuria Musculoskeletal: Denies: Arm Pain, Back Pain, Foot Pain Skin: Denies: Dryness, Rash Neurological: Denies: Balance problems, Double vision, Slurred speech, Confusion, Headaches, Numbness Psychiatric: Reports: Depression. Denies: Anxiety Endocrine: Denies: Change in Body Habitus, Polydipsia, Polyuria VTE Information - Inpt Only VTE Present on Admission: No VTE Mechan Device Prophylaxis: None VTE Pharm Prophylaxis ordered?: No Patient Problems: Active and Suspected Problems Acute respiratory failure with hypoxia (Acute) COVID-19 (Acute) - Physical Exam Vitals/I&O's: Vital Signs Temp Pulse Resp BP Pulse Ox 101 F H 75 22 H 154/85 H 96 04/25/20 22:15 04/25/20 22:15 04/25/20 22:15 04/25/20 22:15 04/25/20 22:15 Oxygen Flow Rate (L/min) 5 Oxygen Delivery Method Bi-pap Weight: 360 lb Body Mass Index (BMI) 48.8 General: Alert, Oriented x3, Cooperative, - - Moderately short of breath, on BiPAP. HEENT: Atraumatic, PERRLA, EOMI, Normocephalic Oral: Moist Mucosa, No Gingival or Mucosal Lesions/ Ulcerations Neck: Supple, No JVD, Negative Carotid Bruits, Trachea Midline, Thyroid Normal Size and Texture Lungs: No wheeze, No rales, Diminished, Short of Breath, - - Decreased breath sounds bilateral, scattered rhonchi. Cardiovascular: Regular rate, Regular Rhythm, Normal S1, Normal S2, PMI Normal Abdomen: Bowel Sounds Present, Soft, Non Tender, Non-Distended, No Hepato- splenomegaly, Obese Extremities: No clubbing, No cyanosis, No edema Skin: No rashes, No breakdown Lymphatic: No Cervical, Supraclavicular, or Inguinal Adenopathy Neurological: Cranial nerves II-XII grossly intact, Motor Exam 5/5 strength throughout Psych/Mental Status: Normal Affect, Appropriate, Alert and oriented to time, place, person, mood and affect Laboratory Results 04/25/20 21:13: WBC 4.6, RBC 5.18, Hgb 14.2, Hct 44.8, MCV 86.5, MCH 27.4, MCHC 31.7 L, RDW Std Deviation 47.7 H, RDW Coeff of Citlaly 14.9 H, Plt Count 170, MPV 9.7, Immature Gran % (Auto) 0.400, Neut % (Auto) 77.6 H, Lymph % (Auto) 15.8 L, [place] % (Auto) 6.2, Eos % (Auto) 0.0, Baso % (Auto) 0.0, Absolute Neuts (auto) 3.5, Absolute Lymphs (auto) 0.72 L, Nucleated RBC % 0 04/25/20 21:13: Sodium 135 L, Potassium 4.3, Chloride 99, Carbon Dioxide 29.0, Anion Gap 7, BUN 31 H, Creatinine 1.44 H, Estim Creat Clear Calc 53.89, Est GFR (MDRD) Af Amer 63, Est GFR (MDRD) Non-Af 52 L, BUN/Creatinine Ratio 21.5 H, Glucose 83, Calcium 8.7, Total Bilirubin 0.30, Direct Bilirubin 0.07, AST 48 H, ALT 25, Alkaline Phosphatase 61, Troponin I < 0.015, Total Protein 7.6, Albumin 3.1 L, Globulin 4.5 H 04/25/20 21:13: Lactic Acid 1.4 04/25/20 21:13: B-Natriuretic Peptide 40.1 Clinical Impression(s) from Imaging Studies Chest X-Ray 04/25/20 20:54 IMPRESSION: 1. Vascular congestion and interstitial edema, new since the prior study. Electronically Signed: Eduardo Figueroa MD ([place]) at 21:50 EST , Service support , Assessment/Plan All Active Problems Acute respiratory failure with hypoxia (Acute) COVID-19 (Acute) This is a 69 years old male patient presented to the emergency room because of increasing shortness of breath with cough, tested positive for COVID-19 on April 19, 2020 and he was found to have bilateral pulmonary vascular congestion versus infiltrate on chest x-ray as well as hypoxia requiring oxygen and he is being admitted for treatment. #1 acute bilateral COVID-19 pneumonia: Chest x-ray reviewed, possible vascular congestion versus acute infiltrate. Currently, patient is on BiPAP. He does have a spike of low-grade fever in the ED, no leukocytosis. Blood culture sent. Probable CHF cannot be ruled out although BNP was normal as well as troponin and EKG showed no acute ischemic changes. Plan: Admit to [facility] COVID-19 floor, isolation precautions, check CPK, fibrinogen, PT and INR, procalcitonin, start IV Decadron and remdesivir, infectious disease and pulmonology consult, IV Lasix 40 mg x1, continue BiPAP, repeat CBC and CMP tomorrow morning, PT OT evaluation and treatment. #2 acute hypoxic respiratory failure: Secondary to #1, superadded CHF cannot be ruled out. BNP was normal. Plan for BiPAP, IV Decadron, IV remdesivir, intermittent Lasix. #3 renal insufficiency: Unknown if it is acute or chronic. In the past, creatinine has been ranging anywhere from 1.1 to 1.5 mg/dL, most recent creatinine was 1.22. Admission creatinine is 1.44, BUN is 31. Patient does have probable pulmonary vascular congestion on chest x-ray. He will be rec eiving intermittent IV Lasix, plan to repeat CMP tomorrow morning. #4 hypertension: Blood pressure stable, continue HCTZ, losartan metoprolol. #5 CAD: EKG reviewed, no acute ischemic changes, troponin is negative. Continue aspirin, statins, losartan and metoprolol. #7 chronic atrial fibrillation: Currently, he is in sinus rhythm, continue metoprolol for rate control and Eliquis for anticoagulation. We will check pro time and INR. #8 depression: Continue Wellbutrin. #9 DVT prophylaxis: Continue Eliquis. This note was generated with [employer] dictation software. It may contain incorrect words, spelling, and punctuation that were not noted in checking the note before signing. Inpatient E&M: 55601 Init Hosp L3
[2020-04-26] VITALS (15 sets, daily range): BP systolic 103–163; BP diastolic 64–95; PULSE 66–80; RESP 18–22; TEMP 36.1–37.1; O2SAT 89–96
[2020-04-26 01:36] LABS: International Normalized Ratio 1.1; Prothrombin Time (Protime)PT. 13.4 SECONDS (11.7-14.9)
[2020-04-26 01:37] LABS: Fibrinogen 667 mg/dl (203-444)
[2020-04-26 01:39] LABS: CPK Total, Creatine Kinase 556 U/L (39-308)
[2020-04-26 01:58] LABS: Procalcitonin 0.13 ng/mL (0.00-0.09)
[2020-04-26] MEDS: INHALER, ASSIST DEVICES 1 EACH SPACER INHALATION ×2 (02:09→22:40)
[2020-04-26] MEDS: Furosemide 40 MG/4 ML Vial IV (02:13)
--- NOTE | 2020-04-26 05:52 | PCS.PANDOC ---
PANDEMIC DOCUMENTATION INITIATED: Date: 04/26/2020 Time: 05 Caremn Sneed RN
--- NOTE | 2020-04-26 06:17 | CON.PCM_ITS ---
Reason for Consult Date of Consultation: 04/26/20 Reason for Consultation: Acute hypoxemic respiratory failure secondary to COVID- 19 pneumonia History of Present Illness: The patient is a 69-year-old male, with a history as outlined below, who presented to the emergency department on April 25 with complaints of shortness of breath and hypoxemia. The patient reported that he was initially diagnosed with coronavirus through a local [facility] urgent care approximately 1 week ago. He was apparently placed on prednisone but subsequently decompensated from a respiratory perspective. The patient does not utilize supplemental oxygen at his baseline. He does have a history of paroxy smal atrial fibrillation, for which he is systemically anticoagulated on Eliquis. On presentation to the emergency department, the patient was noted to have a low-grade fever, was tachypneic and hypoxemic. Laboratory evaluation revealed no evidence of a leukocytosis. Chemistry profile was notable for a creatinine of 1.44. Lactate was within normal limits. Troponin was negative. Procalcitonin was only mildly elevated at 0.13. Chest x-ray revealed findings concerning for pulmonary vascular congestion. The patient was subsequently admitted to the coronavirus cohort unit, where he was started on remdesivir, Decadron and IV Lasix. Past Medical History Past Medical History (Chronic Problems): Chronic Problems Aortic stenosis (Chronic) CAD (coronary artery disease) (Chronic) Cardiac murmur (Chronic) Rheumatic fever (Chronic) Hyperlipidemia (Chronic) Hypertension (Chronic) Atrial fibrillation (Chronic) Allergies Penicillins Allergy (Verified 04/25/20 20:39) Unknown Sulfa (Sulfonamide Antibiotics) Allergy (Verified 04/25/20 20:39) Unknown warfarin [From Coumadin] Adverse Reaction (Verified 04/25/20 20:39) Unknown Home Medications: Ambulatory Orders Medication Instructions Recorded Fluticasone 0.05% [Flonase Nasal 2 spray NASAL PRN PRN 08/14/13 [place]] Atorvastatin Calcium [Lipitor] 40 mg PO QHS tablet 03/10/16 Aspirin [Aspirin, Baby] 81 mg PO DAILY@0800 06/06/16 Hydrochlorothiazide [Hctz] 25 mg PO DAILY 06/06/16 Losartan Potassium [Cozaar] 100 mg PO DAILY 06/06/16 Apixaban [Eliquis] 5 mg PO BID 07/08/16 buPROPion XL [Wellbutrin Xl] 300 mg PO DAILY 01/28/19 Benzonatate [Tessalon Perle] 200 mg PO TID PRN PRN 04/25/20 Citalopram [Celexa] 40 mg PO DAILY 04/25/20 Metoprolol Tartrate 50 mg PO BID 04/25/20 Oxycodone HCl/Acetaminophen 1 - 2 tab PO Q6H PRN PRN 04/25/20 [Percocet 5/325] Pantoprazole Sodium [Protonix] 40 mg PO DAILY 04/25/20 cycloBENZAPRine HCl [Flexeril] 10 mg PO QHS 04/25/20 traMADol [Ultram (G)] 50 mg PO Q6H PRN PRN 04/25/20 Surgical History: coronary bypass surgery, herniorrhaphy, - Psychiatric History: Depression Lives: Spouse/ Significant Other Smoking Status: Never smoker Alcohol: None Drugs: None - *Family History Maternal History Items: Heart Disease Paternal History Items: Heart Disease Sibling History Items: Heart Disease - Brother: CAD; CABG; ischemic cardiomyopathy; status post ICD Review of Systems Constitutional: Reports: Anorexia. Denies: Chills, Fever Eyes: Denies: Blurred vision, Double vision HEENT: Denies: Head Aches, Sinus Congestion, Sinus Drainage Cardiovascular: Denies: Chest Pain, Palpitations Respiratory: Reports: Cough, Shortness of Breath Gastrointestinal: Denies: Abdominal Pain, Nausea, Vomiting Genitourinary: Denies: Dysuria Musculoskeletal: Denies: Joint Pain, Joint Tenderness Skin: Denies: Rash, Wounds Neurological: Denies: Numbness, Tingling, Focal weakness Psychiatric: Denies: Anxiety, Depression, Homicidal Ideations, Suicidal Ideations Hematologic/ Lymphatic: Denies: Easy Bruising, Easy Bleeding Patient Problems: Active and Suspected Problems Acute respiratory failure with hypoxia (Acute) COVID-19 (Acute) Objective: The patient's most recent lab work, culture data and imaging studies have all been personally reviewed. - Physical Exam Vitals/I&O's: Vital Signs Temp Pulse Resp BP Pulse Ox 97.8 F 67 18 143/81 H 94 04/26/20 05:00 04/26/20 05:00 04/26/20 05:00 04/26/20 05:00 04/26/20 05:00 Oxygen Flow Rate (L/min) 5 Oxygen Delivery Method Nasal Cannula Weight: 368 lb 9.806 oz Body Mass Index (BMI) 50.0 Intake and Output for Last 24 Hours 04/24/20 04/25/20 04/26/20 23:59 23:59 23:59 Intake Total 250 / 250 Output Total Balance 249 / 249 General: Alert, Cooperative, No apparent distress HEENT: Atraumatic, PERRLA, Normocephalic Oral: No Gingival or Mucosal Lesions/ Ulcerations Neck: Supple, No Nodes, Trachea Midline Lungs: No rhonchi, No wheeze, No rales, Diminished Cardiovascular: Regular rate, Regular Rhythm Abdomen: Bowel Sounds Present, Soft, Non Tender, Obese Extremities: No clubbing, No cyanosis, No edema Skin: No breakdown Musculoskeletal: No Tenderness to Palpation of Joints or Extremities Lymphatic: No Cervical, Supraclavicular, or Inguinal Adenopathy Neurological: Cranial nerves II-XII grossly intact, Neuro grossly intact Psych/Mental Status: Alert and oriented to time, place, person, mood and affect Labs (Last 48 Hours) 04/25/20 04/25/20 04/25/20 21:13 21:13 21:13 WBC 4.6 RBC 5.18 Hgb 14.2 Hct 44.8 MCV 86.5 MCH 27.4 MCHC 31.7 L RDW Std Deviation 47.7 H RDW Coeff of Citlaly 14.9 H Plt Count 170 MPV 9.7 Immature Gran % (Auto) 0.400 Neut % (Auto) 77.6 H Lymph % (Auto) 15.8 L [place] % (Auto) 6.2 Eos % (Auto) 0.0 Baso % (Auto) 0.0 Absolute Neuts (auto) 3.5 Absolute Lymphs (auto) 0.72 L Nucleated RBC % 0 PT INR Fibrinogen Sodium 135 L Potassium 4.3 Chloride 99 Carbon Dioxide 29.0 Anion Gap 7 BUN 31 H Creatinine 1.44 H Estim Creat Clear Calc 53.89 Est GFR (MDRD) Af Amer 63 Est GFR (MDRD) Non-Af 52 L BUN/Creatinine Ratio 21.5 H Glucose 83 Lactic Acid 1.4 Calcium 8.7 Total Bilirubin 0.30 Direct Bilirubin 0.07 AST 48 H ALT 25 Alkaline Phosphatase 61 Total Creatine Kinase Troponin I < 0.015 B-Natriuretic Peptide Total Protein 7.6 Albumin 3.1 L Globulin 4.5 H Procalcitonin 04/25/20 04/25/20 04/25/20 21:13 21:13 21:13 WBC RBC Hgb Hct MCV MCH MCHC RDW Std Deviation RDW Coeff of Citlaly Plt Count MPV Immature Gran % (Auto) Neut % (Auto) Lymph % (Auto) [place] % (Auto) Eos % (Auto) Baso % (Auto) Absolute Neuts (auto) Absolute Lymphs (auto) Nucleated RBC % PT 13.4 INR 1.1 Fibrinogen 667 H Sodium Potassium Chloride Carbon Dioxide Anion Gap BUN Creatinine Estim Creat Clear Calc Est GFR (MDRD) Af Amer Est GFR (MDRD) Non-Af BUN/Creatinine Ratio Glucose Lactic Acid Calcium Total Bilirubin Direct Bilirubin AST ALT Alkaline Phosphatase Total Creatine Kinase 556 H Troponin I B-Natriuretic Peptide 40.1 Total Protein Albumin Globulin Procalcitonin 04/25/20 21:13 WBC RBC Hgb Hct MCV MCH MCHC RDW Std Deviation RDW Coeff of Citlaly Plt Count MPV Immature Gran % (Auto) Neut % (Auto) Lymph % (Auto) [place] % (Auto) Eos % (Auto) Baso % (Auto) Absolute Neuts (auto) Absolute Lymphs (auto) Nucleated RBC % PT INR Fibrinogen Sodium Potassium Chloride Carbon Dioxide Anion Gap BUN Creatinine Estim Creat Clear Calc Est GFR (MDRD) Af Amer Est GFR (MDRD) Non-Af BUN/Creatinine Ratio Glucose Lactic Acid Calcium Total Bilirubin Direct Bilirubin AST ALT Alkaline Phosphatase Total Creatine Kinase Troponin I B-Natriuretic Peptide Total Protein Albumin Globulin Procalcitonin 0.13 H Clinical Impression(s) from Imaging Studies Chest X-Ray 04/25/20 20:54 IMPRESSION: 1. Vascular congestion and interstitial edema, new since the prior study. Electronically Signed: Eduardo Figueroa MD ([place]) at 21:50 EST , Service support , Current Medications Acetaminophen (Acetaminophen 325 Mg Tablet) 650 mg PO Q6H PRN PRN PRN Reason: Pain Score 1-10/Temp > 100.7 F Albuterol Sulfate (Albuterol Sulfate 18 Gm Inhaler (200 Puffs)) 2 puff IH Q4H PRN PRN PRN Reason: Shortness of breath, wheezing Last Admin: 12/26/20 02:09 Dose: 2 puff Documented by: Apixaban (Apixaban 5 Mg Tablet) 5 mg PO BID [facility] Aspirin (Aspirin 81 Mg Tab.Chew) 81 mg PO DAILY [facility] Atorvastatin Calcium (Atorvastatin Calcium 40 Mg Tablet) 40 mg PO QHS [facility] Bupropion HCl (Bupropion (Xl) 300 Mg Tablet.Xl) 300 mg PO DAILY [facility] Dexamethasone Sodium Phosphate (Dexamethasone 10 Mg/Ml Vial) 6 mg IV DAILY [facility] Sodium Chloride () 250 mls @ 15 mls/hr IV .[id number] PRN PRN Reason: Saline Flush Sodium Chloride () 250 mls @ 15 mls/hr IV .[id number] PRN PRN Reason: Additional IVPB Infusion Remdesivir 100 mg/ Sodium (Chloride) 250 mls @ 125 mls/hr IV DAILY@2200 [facility] Stop: 04/29/20 23:59 Losartan Potassium (Losartan Potassium 100 Mg Tablet) 100 mg PO DAILY [facility] Metoprolol Tartrate (Metoprolol Tartrate 25 Mg Tablet) 25 mg PO BID [facility] Miscellaneous Information (Inhaler, Assist Devices 1 Each Spacer) 1 each INHALATION PRN PRN PRN Reason: WITH ALBUTEROL MDI Last Admin: 04/26/20 02:09 Dose: 1 each Documented by: Ondansetron HCl (Ondansetron 4 Mg/2 Ml Vial) 4 mg IV Q8H PRN PRN PRN Reason: NAUSEA/VOMITING Senna/Docusate Sodium (Senna/Docusate Sodium 1 Tablet) 2 tablet PO BID PRN PRN PRN Reason: Constipation Sodium Chloride (0.9% Saline Lock 10 Ml Syringe) 10 - 40 ml IV UD PRN PRN Reason: SALINE FLUSH Assessment/Plan All Active Problems Acute respiratory failure with hypoxia (Acute) COVID-19 (Acute) RECOMMENDATIONS: 1. Continue to wean supplemental oxygen to maintain saturations at or above 90%. 2. Continue systemic anticoagulation with Eliquis, per outpatient regimen. 3. Continue remdesivir with monitoring of liver and renal function. 4. Continue Decadron with plans to complete a 10-day treatment course. 5. Encourage incentive spirometer use and mobilize patient as tolerated. IMPRESSIONS: 1. Acute hypoxemic respiratory failure secondary to COVID-19 pneumonia The patient was initially diagnosed with Covid approximately 1 week ago and was being managed as an outpatient, but developed worsening shortness of breath and hypoxemia. The patient is already systemically anticoagulated on Eliquis, per outpatient regimen. He will be continued on Decadron, with plans to complete a 10-day treatment course, along with remdesivir, with close monitoring of liver and renal function. Continue to wean supplemental oxygen to maintain saturations at or above 90%. Encourage incentive spirometer use and mobilize patient as tolerated. 2. Obesity/hypertension/hyperlipidemia/paroxysmal atrial fibrillation/coronary artery disease/GERD Complicates care, management, recovery and prognosis. Continue home medications as indicated. This note was generated with [employer] dictation software. It may contain incorrect words, spelling, and punctuation that were not noted in checking the note before signing. Inpatient E&M: 28184 Init Hosp L3
[2020-04-26 07:59] LABS: ALB/GLOB Ratio 0.6 RATIO (0.9-2.4); AST(SGOT) 58 U/L (15-37); Alanine Aminotransfer ALT/SGPT 27 U/L (16-61); Albumin, Serum 2.9 g/dL (3.2-5.0); Alkaline Phosphatase 59 U/L (45-117); Anion Gap 8 (5-15); BUN 34 mg/dL (7-18); BUN/Creat Ratio 23.9 RATIO (10-20); Calcium,Total 8.9 mg/dL (8.5-10.1); Chloride 100 mmol/L (98-107); Creatinine, Serum 1.42 mg/dL (0.70-1.30); EST Glomerular Filtration Rate 53 mL/min (>60); Est Glom Filt Rate - Afr Amer 64 mL/min (>60); Estimated Creatinine Clearance 54.65 ml/min; Globulin 4.6 g/dL (2.2-4.2); Glucose 117 mg/dL (74-106); Potassium 4.2 mmol/L (3.5-5.1); Protein, Total 7.5 g/dL (6.4-8.2); Sodium Level 132 mmol/L (136-145)
--- NOTE | 2020-04-26 09:00 | CASEMGMT ---
ALFREDO JONES assessment: Phone interview with patient for initial transition planning/care coordination assessment d/t COVID precautions. ALFREDO JONES introduced self and role at [facility], pt voices understanding and consents to assessment at this time. Pt does have some conversational dyspnea at this time and is currently on 5L nc at this time. Pt is A/Ox4 at this time and answers all questions appropriately at this time. Pt states was admitted here last week with COVID as well and she is at home recovering at this time. Pt states no concerns getting supplies. Care providers, pharmacy, and demographics verified/updated at this time. Presentation: Pt COVID + last tuesday, now with increased SOB and decreased sat at home 88% Admitting dx: Acute COVID pna, acute hypoxia PCP: Adán Specialists: Pt states currently has no specialists. [facility]erred [facility]: [facility] Insurance: [employer] A/B, [employer] Prescription Benefit: Yes Living Will/HPOA: Pt states has LW/HPOA and is aware that they are not on file at [facility] at this time. Pt states his , Krista Hilario, is HPOA. LNOK: Krista Hilario, Living Arrangements: Pt states lives with in 1 story home and states no concerns at home at this time. Pt states is mostly independent with ADL's and states ' helps, if I need it.' Transportation: Pt states drives self and states no transportation concerns at this time. DME/HHC: Pt states has a cane at home but does not normally use and states no need for any further DME at this time. Pt states no preference for DME company, if needed at discharge. Pt states no hx of HHC or SNF in the past. Pt states no concerns with going home at time of discharge. Pt states is retired but still works. Pt states does not smoke cigarettes but does drink ETOH occasionally. Pt states no further concern/needs at this time. CM to follow for home oxygen need and any further discharge planning/needs. Advised pt to ask for CM if any further questions/concerns/needs arise, voices understanding. Pt Goal: Home Plan: Home, pending home oxygen testing. [place] ALFREDO JONES
[2020-04-26 09:11] LABS: Absolute Lymphocyte Count 0.54 X10^3/uL (0.83-4.51); Absolute Neutrophil Count 2.7 X10^3/uL (2.0-7.7); Hematocrit 45.8 % (40-54); Hemoglobin 14.6 g/dL (13.0-16.5); Lymphocyte # 0.54 X10^3/ul (4.0); Lymphocyte % 15.4 % (19-41); Mean Corp Hgb Conc 31.9 g/dL (32-36); Mean Corpuscular Volume 84.8 fL (80-94); Mean Platelet Vol. 10.3 fl (6.2-12.0); Monocyte# 0.22 X10^3/uL; Monocyte% 6.3 % (0-10); NRBC Flagged by Analyzer 0 % (0-5); Neutrophil # 2.72 X10^3/uL (2.7-7.7); Neutrophil % 77.7 % (47-70); POSITIVE DIFFERENTIAL YES; Platelet Count 156 K/mm3 (150-450); RBC Distribution Width CV 14.9 % (11.6-14.6); RBC Distribution Width SD 46.6 fl (35.1-43.9); White Blood Count 3.5 K/mm3 (4.4-11.0)
[2020-04-26 09:21] LABS: Differential Indicated SCAN CRITERIA MET
[2020-04-26] MEDS: Aspirin 81 MG TAB.CHEW PO (09:42)
[2020-04-26] MEDS: APIXABAN 5 MG TABLET PO ×2 (09:42→20:45)
[2020-04-26] MEDS: Losartan Potassium 100 MG Tablet PO (09:42)
[2020-04-26] MEDS: buPROPion (XL) 300 MG TABLET.XL PO (09:42)
[2020-04-26] MEDS: Metoprolol Tartrate 25 MG Tablet PO (09:42)
[2020-04-26] MEDS: dexAMETHasone 10 MG/ML Vial 6 MG IV (09:42)
[2020-04-26] MEDS: 0.9% Saline Lock 10 ML Syringe IV ×2 (09:43→20:49)
[2020-04-26 10:17] LABS: Differential Comment SCANNED
--- NOTE | 2020-04-26 11:01 | PCM.PROGNOTE ---
Patient Problems: Active and Suspected Problems Acute respiratory failure with hypoxia (Acute) COVID-19 (Acute) Subjective: Patient was seen and examined today, his pulse ox is 94% on 5 L, patient has no complaints of any chills, fever, or chest pain. - Physical Exam Vitals/I&O's: Vital Signs Temp Pulse Resp BP Pulse Ox 96.9 F L 77 18 163/95 H 94 04/26/20 09:35 04/26/20 09:42 04/26/20 09:35 04/26/20 09:35 04/26/20 09:35 Oxygen Flow Rate (L/min) 5 Oxygen Delivery Method Nasal Cannula Weight: 167.2 kg Body Mass Index (BMI) 50.0 Intake and Output for Last 24 Hours 04/24/20 04/25/20 04/26/20 23:59 23:59 23:59 Intake Total 250 / 250 Output Total Balance 249 / 249 General: Alert, Oriented x3, Cooperative, No apparent distress, Well developed, Well nourished HEENT: Atraumatic, PERRLA, EOMI, Normocephalic Oral: Moist Mucosa Neck: Supple, No JVD, Trachea Midline, Thyroid Normal Size and Texture Lungs: Clear to auscultation, Normal air movement, No rhonchi, No wheeze, No rales Cardiovascular: Regular rate, Regular Rhythm, Normal S1, Normal S2, No murmurs, PMI Normal, No rub noted, No Gallop Abdomen: Bowel Sounds Present, Soft, Non Tender, Non-Distended, No hernias noted Extremities: No clubbing, No cyanosis, No edema, Capillary Refill Less than 3 Seconds Skin: No rashes, No breakdown Musculoskeletal: No Tenderness to Palpation of Joints or Extremities Neurological: Cranial nerves II-XII grossly intact, Neuro grossly intact, Sensory exam intact to light touch and pain Psych/Mental Status: Normal Affect, Appropriate, Alert and oriented to time, place, person, mood and affect Laboratory Results 04/25/20 21:13: WBC 4.6, RBC 5.18, Hgb 14.2, Hct 44.8, MCV 86.5, MCH 27.4, MCHC 31.7 L, RDW Std Deviation 47.7 H, RDW Coeff of Citlaly 14.9 H, Plt Count 170, MPV 9.7, Immature Gran % (Auto) 0.400, Neut % (Auto) 77.6 H, Lymph % (Auto) 15.8 L, [place] % (Auto) 6.2, Eos % (Auto) 0.0, Baso % (Auto) 0.0, Absolute Neuts (auto) 3.5, Absolute Lymphs (auto) 0.72 L, Nucleated RBC % 0 04/25/20 21:13: Sodium 135 L, Potassium 4.3, Chloride 99, Carbon Dioxide 29.0, Anion Gap 7, BUN 31 H, Creatinine 1.44 H, Estim Creat Clear Calc 53.89, Est GFR (MDRD) Af Amer 63, Est GFR (MDRD) Non-Af 52 L, BUN/Creatinine Ratio 21.5 H, Glucose 83, Calcium 8.7, Total Bilirubin 0.30, Direct Bilirubin 0.07, AST 48 H, ALT 25, Alkaline Phosphatase 61, Troponin I < 0.015, Total Protein 7.6, Albumin 3.1 L, Globulin 4.5 H 04/25/20 21:13: Lactic Acid 1.4 04/25/20 21:13: B-Natriuretic Peptide 40.1 04/25/20 21:13: Total Creatine Kinase 556 H 04/25/20 21:13: PT 13.4, INR 1.1, Fibrinogen 667 H 04/25/20 21:13: Procalcitonin 0.13 H 04/26/20 06:42: WBC 3.5 L, RBC 5.40, Hgb 14.6, Hct 45.8, MCV 84.8, MCH 27.0, MCHC 31.9 L, RDW Std Deviation 46.6 H, RDW Coeff of Citlaly 14.9 H, Plt Count 156, MPV 10.3, Immature Gran % (Auto) 0.600, Neut % (Auto) 77.7 H, Lymph % (Auto) 15.4 L, [place] % (Auto) 6.3, Eos % (Auto) 0.0, Baso % (Auto) 0.0, Absolute Neuts (auto) 2.7, Absolute Lymphs (auto) 0.54 L, Nucleated RBC % 0, Differential Comment SCANNED, Diff Path Review August04/26/20 06:42: Sodium 132 L, Potassium 4.2, Chloride 100, Carbon Dioxide 24.0, Anion Gap 8, BUN 34 H, Creatinine 1.42 H, Estim Creat Clear Calc 54.65, Est GFR (MDRD) Af Amer 64, Est GFR (MDRD) Non-Af 53 L, BUN/Creatinine Ratio 23.9 H, Glucose 117 H, Calcium 8.9, Total Bilirubin 0.50, AST 58 H, ALT 27, Alkaline Phosphatase 59, Total Protein 7.5, Albumin 2.9 L, Globulin 4.6 H, Albumin/Globulin Ratio 0.6 L Current Medications Acetaminophen (Acetaminophen 325 Mg Tablet) 650 mg PO Q6H PRN PRN PRN Reason: Pain Score 1-10/Temp > 100.7 F Albuterol Sulfate (Albuterol Sulfate 18 Gm Inhaler (200 Puffs)) 2 puff IH Q4H PRN PRN PRN Reason: Shortness of breath, wheezing Last Admin: 04/26/20 02:09 Dose: 2 puff Documented by: Apixaban (Apixaban 5 Mg Tablet) 5 mg PO BID [facility] Last Admin: 04/26/20 09:42 Dose: 5 mg Documented by: Aspirin (Aspirin 81 Mg Tab.Chew) 81 mg PO DAILY [facility] Last Admin: 04/26/20 09:42 Dose: 81 mg Documented by: Atorvastatin Calcium (Atorvastatin Calcium 40 Mg Tablet) 40 mg PO QHS [facility] Bupropion HCl (Bupropion (Xl) 300 Mg Tablet.Xl) 300 mg PO DAILY [facility] Last Admin: 04/26/20 09:42 Dose: 300 mg Documented by: Dexamethasone Sodium Phosphate (Dexamethasone 10 Mg/Ml Vial) 6 mg IV DAILY [facility] Last Admin: 04/26/20 09:42 Dose: 6 mg Documented by: Sodium Chloride () 250 mls @ 15 mls/hr IV .[id number] PRN PRN Reason: Saline Flush Sodium Chloride () 250 mls @ 15 mls/hr IV .[id number] PRN PRN Reason: Additional IVPB Infusion Remdesivir 100 mg/ Sodium (Chloride) 250 mls @ 125 mls/hr IV DAILY@2200 [facility] Stop: 04/29/20 23:59 Losartan Potassium (Losartan Potassium 100 Mg Tablet) 100 mg PO DAILY [facility] Last Admin: 04/26/20 09:42 Dose: 100 mg Documented by: Metoprolol Tartrate (Metoprolol Tartrate 25 Mg Tablet) 25 mg PO BID [facility] Last Admin: 04/26/20 09:42 Dose: 25 mg Documented by: Miscellaneous Information (Inhaler, Assist Devices 1 Each Spacer) 1 each INHALATION PRN PRN PRN Reason: WITH ALBUTEROL MDI Last Admin: 04/26/20 02:09 Dose: 1 each Documented by: Ondansetron HCl (Ondansetron 4 Mg/2 Ml Vial) 4 mg IV Q8H PRN PRN PRN Reason: NAUSEA/VOMITING Senna/Docusate Sodium (Senna/Docusate Sodium 1 Tablet) 2 tablet PO BID PRN PRN PRN Reason: Constipation Sodium Chloride (0.9% Saline Lock 10 Ml Syringe) 10 - 40 ml IV UD PRN PRN Reason: SALINE FLUSH Last Admin: 04/26/20 09:43 Dose: 10 ml Documented by: Medical Necessity - Tobacco Use Smoking Status: Never smoker Assessment/Plan All Active Problems Acute respiratory failure with hypoxia (Acute) COVID-19 (Acute) #1 COVID-19 pneumonia-patient is being given remdesivir and dexamethasone #2 acute hypoxic respiratory failure secondary to #1-patient's pulse ox will be monitored #3 coronary artery disease #4 essential hypertension #5 paroxysmal atrial fibrillation-patient is on Eliquis [facility] Inpatient E&M: [id number] [facility] Hosp L2
[2020-04-26] MEDS: Furosemide 20 MG Tablet PO (17:06)
[2020-04-26] MEDS: Atorvastatin Calcium 40 MG Tablet PO (20:45)
[2020-04-26] MEDS: Metoprolol Tartrate 50 MG Tablet PO (20:47)
[2020-04-26] MEDS: cycloBENZAPRine HCl 10 MG Tablet PO (20:47)
[2020-04-27] VITALS (25 sets, daily range): BP systolic 115–156; BP diastolic 74–82; PULSE 56–109; RESP 12–32; TEMP 36.3–37.1; O2SAT 90–96
[2020-04-27] MEDS: INHALER, ASSIST DEVICES 1 EACH SPACER INHALATION ×3 (01:30→16:41)
--- NOTE | 2020-04-27 05:44 | PCM.PN.PUL ---
Patient Problems: Active and Suspected Problems Acute respiratory failure with hypoxia (Acute) COVID-19 (Acute) Subjective: The patient was seen and examined at the bedside this morning. Events from the last 24 hours have been reviewed. The patient is currently afebrile, hemodynamically stable and maintaining appropriate oxygen saturations on 6 L/min via nasal cannula. The patient remains systemically anticoagulated on twice daily Eliquis. In addition, the patient remains on both remdesivir and Decadron. The patient reported to me that he slept poorly overnight. He does get very short of breath with even minimal amounts of physical exertion. Liver and renal function are stable. Objective: The patient's most recent lab work, culture data and imaging studies have all been personally reviewed. - Physical Exam Vitals/I&O's: Vital Signs Temp Pulse Resp BP Pulse Ox 98.7 F 74 18 131/81 H 92 04/27/20 02:51 04/27/20 03:59 04/27/20 02:51 04/27/20 02:51 04/27/20 05:10 Oxygen Flow Rate (L/min) 6 Oxygen Delivery Method Nasal Cannula Weight: 368 lb 9.806 oz Body Mass Index (BMI) 50.0 Intake and Output for Last 24 Hours 04/25/20 04/26/20 04/27/20 23:59 23:59 23:59 Intake Total 1999 250 / 250 Output Total Balance 1998 250 / 250 General: Alert, Cooperative, - - Appears winded with some conversational dyspnea after returning to bed from the bathroom. HEENT: Atraumatic, Normocephalic Oral: No Gingival or Mucosal Lesions/ Ulcerations Neck: Supple, No Nodes, Trachea Midline Lungs: No rhonchi, No wheeze, No rales, Diminished, Tachypneic Cardiovascular: Regular rate, Regular Rhythm Abdomen: Bowel Sounds Present, Soft, Non Tender, Obese Extremities: No clubbing, No cyanosis, No edema Skin: No breakdown Musculoskeletal: No Tenderness to Palpation of Joints or Extremities Lymphatic: No Cervical, Supraclavicular, or Inguinal Adenopathy Neurological: Cranial nerves II-XII grossly intact, Neuro grossly intact Psych/Mental Status: Normal Affect, Appropriate Labs (Last 48 Hours) 04/25/20 04/25/20 04/25/20 21:13 21:13 21:13 WBC 4.6 RBC 5.18 Hgb 14.2 Hct 44.8 MCV 86.5 MCH 27.4 MCHC 31.7 L RDW Std Deviation 47.7 H RDW Coeff of Citlaly 14.9 H Plt Count 170 MPV 9.7 Immature Gran % (Auto) 0.400 Neut % (Auto) 77.6 H Lymph % (Auto) 15.8 L [place] % (Auto) 6.2 Eos % (Auto) 0.0 Baso % (Auto) 0.0 Absolute Neuts (auto) 3.5 Absolute Lymphs (auto) 0.72 L Nucleated RBC % 0 Differential Comment Diff Path Review PT INR Fibrinogen Sodium 135 L Potassium 4.3 Chloride 99 Carbon Dioxide 29.0 Anion Gap 7 BUN 31 H Creatinine 1.44 H Estim Creat Clear Calc 53.89 Est GFR (MDRD) Af Amer 63 Est GFR (MDRD) Non-Af 52 L BUN/Creatinine Ratio 21.5 H Glucose 83 Lactic Acid 1.4 Calcium 8.7 Total Bilirubin 0.30 Direct Bilirubin 0.07 AST 48 H ALT 25 Alkaline Phosphatase 61 Total Creatine Kinase Troponin I < 0.015 B-Natriuretic Peptide Total Protein 7.6 Albumin 3.1 L Globulin 4.5 H Albumin/Globulin Ratio Procalcitonin 04/25/20 04/25/20 04/25/20 21:13 21:13 21:13 WBC RBC Hgb Hct MCV MCH MCHC RDW Std Deviation RDW Coeff of Citlaly Plt Count MPV Immature Gran % (Auto) Neut % (Auto) Lymph % (Auto) [place] % (Auto) Eos % (Auto) Baso % (Auto) Absolute Neuts (auto) Absolute Lymphs (auto) Nucleated RBC % Differential Comment Diff Path Review PT 13.4 INR 1.1 Fibrinogen 667 H Sodium Potassium Chloride Carbon Dioxide Anion Gap BUN Creatinine Estim Creat Clear Calc Est GFR (MDRD) Af Amer Est GFR (MDRD) Non-Af BUN/Creatinine Ratio Glucose Lactic Acid Calcium Total Bilirubin Direct Bilirubin AST ALT Alkaline Phosphatase Total Creatine Kinase 556 H Troponin I B-Natriuretic Peptide 40.1 Total Protein Albumin Globulin Albumin/Globulin Ratio Procalcitonin 04/25/20 04/26/20 04/26/20 21:13 06:42 06:42 WBC 3.5 L RBC 5.40 Hgb 14.6 Hct 45.8 MCV 84.8 MCH 27.0 MCHC 31.9 L RDW Std Deviation 46.6 H RDW Coeff of Citlaly 14.9 H Plt Count 156 MPV 10.3 Immature Gran % (Auto) 0.600 Neut % (Auto) 77.7 H Lymph % (Auto) 15.4 L [place] % (Auto) 6.3 Eos % (Auto) 0.0 Baso % (Auto) 0.0 Absolute Neuts (auto) 2.7 Absolute Lymphs (auto) 0.54 L Nucleated RBC % 0 Differential Comment SCANNED Diff Path Review May foll PT INR Fibrinogen Sodium 132 L Potassium 4.2 Chloride 100 Carbon Dioxide 24.0 Anion Gap 8 BUN 34 H Creatinine 1.42 H Estim Creat Clear Calc 54.65 Est GFR (MDRD) Af Amer 64 Est GFR (MDRD) Non-Af 53 L BUN/Creatinine Ratio 23.9 H Glucose 117 H Lactic Acid Calcium 8.9 Total Bilirubin 0.50 Direct Bilirubin AST 58 H ALT 27 Alkaline Phosphatase 59 Total Creatine Kinase Troponin I B-Natriuretic Peptide Total Protein 7.5 Albumin 2.9 L Globulin 4.6 H Albumin/Globulin Ratio 0.6 L Procalcitonin 0.13 H Clinical Impression(s) from Imaging Studies Chest X-Ray 04/25/20 20:54 IMPRESSION: 1. Vascular congestion and interstitial edema, new since the prior study. Electronically Signed: Eduardo Figueroa MD ([place]) at 21:50 EST , Service support , Current Medications Acetaminophen (Acetaminophen 325 Mg Tablet) 650 mg PO Q6H PRN PRN PRN Reason: Pain Score 1-10/Temp > 100.7 F Albuterol Sulfate (Albuterol Sulfate 18 Gm Inhaler (200 Puffs)) 2 puff IH Q4H PRN PRN PRN Reason: Shortness of breath, wheezing Last Admin: 04/27/20 01:30 Dose: 2 puff Documented by: Apixaban (Apixaban 5 Mg Tablet) 5 mg PO BID [facility] Last Admin: 04/26/20 20:45 Dose: 5 mg Documented by: Aspirin (Aspirin 81 Mg Tab.Chew) 81 mg PO DAILY [facility] Last Admin: 04/26/20 09:42 Dose: 81 mg Documented by: Atorvastatin Calcium (Atorvastatin Calcium 40 Mg Tablet) 40 mg PO QHS [facility] Last Admin: 04/26/20 20:45 Dose: 40 mg Documented by: Bupropion HCl (Bupropion (Xl) 300 Mg Tablet.Xl) 300 mg PO DAILY [facility] Last Admin: 04/26/20 09:42 Dose: 300 mg Documented by: Citalopram Hydrobromide (Citalopram 40 Mg Tablet) 40 mg PO DAILY [facility] Cyclobenzaprine HCl (Cyclobenzaprine Hcl 10 Mg Tablet) 10 mg PO QHS [facility] Last Admin: 04/26/20 20:47 Dose: 10 mg Documented by: Dexamethasone Sodium Phosphate (Dexamethasone 10 Mg/Ml Vial) 6 mg IV DAILY [facility] Last Admin: 04/26/20 09:42 Dose: 6 mg Documented by: Furosemide (Furosemide 20 Mg Tablet) 20 mg PO DAILY [facility] Sodium Chloride () 250 mls @ 15 mls/hr IV .[id number] PRN PRN Reason: Saline Flush Sodium Chloride () 250 mls @ 15 mls/hr IV .[id number] PRN PRN Reason: Additional IVPB Infusion Remdesivir 100 mg/ Sodium (Chloride) 250 mls @ 125 mls/hr IV DAILY@2200 [facility] Stop: 04/29/20 23:59 Last Infusion: 04/26/20 22:52 Dose: Infused Documented by: Losartan Potassium (Losartan Potassium 100 Mg Tablet) 100 mg PO DAILY [facility] Last Admin: 04/26/20 09:42 Dose: 100 mg Documented by: Metoprolol Tartrate (Metoprolol Tartrate 50 Mg Tablet) 50 mg PO BID [facility] Last Admin: 04/26/20 20:47 Dose: 50 mg Documented by: Miscellaneous Information (Inhaler, Assist Devices 1 Each Spacer) 1 each INHALATION PRN PRN PRN Reason: WITH ALBUTEROL MDI Last Admin: 04/27/20 01:30 Dose: 1 each Documented by: Ondansetron HCl (Ondansetron 4 Mg/2 Ml Vial) 4 mg IV Q8H PRN PRN PRN Reason: NAUSEA/VOMITING Pantoprazole Sodium (Pantoprazole Sodium 40 Mg Tablet) 40 mg PO DAILY [facility] Senna/Docusate Sodium (Senna/Docusate Sodium 1 Tablet) 2 tablet PO BID PRN PRN PRN Reason: Constipation Sodium Chloride (0.9% Saline Lock 10 Ml Syringe) 10 - 40 ml IV UD PRN PRN Reason: SALINE FLUSH Last Admin: 04/26/20 20:49 Dose: 10 ml Documented by: Tramadol HCl (Tramadol 50 Mg Tablet) 50 mg PO Q6H PRN PRN PRN Reason: Pain 1-10 Medical Necessity - Tobacco Use Smoking Status: Never smoker Assessment/Plan All Active Problems Acute respiratory failure with hypoxia (Acute) COVID-19 (Acute) RECOMMENDATIONS: 1. Continue to wean supplemental oxygen to maintain saturations at or above 90%. Okay to initiate Airvo heated high flow from my perspective. 2. Continue systemic anticoagulation with Eliquis, per outpatient regimen. 3. Continue remdesivir with monitoring of liver and renal function. 4. Continue Decadron with plans to complete a 10-day treatment course. 5. Encourage incentive spirometer use and mobilize patient as tolerated. IMPRESSIONS: 1. Acute hypoxemic respiratory failure secondary to COVID-19 pneumonia The patient was initially diagnosed with Covid approximately 1 week ago and was being managed as an outpatient, but developed worsening shortness of breath and hypoxemia. The patient is already systemically anticoagulated on Eliquis, per outpatient regimen. He will be continued on Decadron, with plans to complete a 10-day treatment course, along with remdesivir, with close monitoring of liver and renal function. Continue to wean supplemental oxygen to maintain saturations at or above 90%. Encourage incentive spirometer use and mobilize patient as tolerated. 2. Obesity/hypertension/hyperlipidemia/paroxysmal atrial fibrillation/coronary artery disease/GERD Complicates care, management, recovery and prognosis. Continue home medications as indicated. This note was generated with [email or web address] dictation software. It may contain incorrect words, spelling, and punctuation that were not noted in checking the note before signing. Inpatient E&M: [id number] [facility] Hosp L3
[2020-04-27 07:38] LABS: ALB/GLOB Ratio 0.6 RATIO (0.9-2.4); AST(SGOT) 57 U/L (15-37); Alanine Aminotransfer ALT/SGPT 35 U/L (16-61); Alkaline Phosphatase 61 U/L (45-117); Anion Gap 8 (5-15); BUN 40 mg/dL (7-18); BUN/Creat Ratio 27.4 RATIO (10-20); Calcium,Total 8.9 mg/dL (8.5-10.1); Chloride 98 mmol/L (98-107); Creatinine, Serum 1.46 mg/dL (0.70-1.30); EST Glomerular Filtration Rate 51 mL/min (>60); Est Glom Filt Rate - Afr Amer 62 mL/min (>60); Estimated Creatinine Clearance 53.15 ml/min; Globulin 4.7 g/dL (2.2-4.2); Glucose 92 mg/dL (74-106); Potassium 3.7 mmol/L (3.5-5.1); Protein, Total 7.7 g/dL (6.4-8.2); Sodium Level 132 mmol/L (136-145)
[2020-04-27] MEDS: APIXABAN 5 MG TABLET PO ×2 (10:42→20:35)
[2020-04-27] MEDS: buPROPion (XL) 300 MG TABLET.XL PO (10:42)
[2020-04-27] MEDS: Pantoprazole Sodium 40 MG Tablet PO (10:42)
[2020-04-27] MEDS: Citalopram 40 MG TABLET PO (10:42)
[2020-04-27] MEDS: Aspirin 81 MG TAB.CHEW PO (10:42)
[2020-04-27] MEDS: Losartan Potassium 100 MG Tablet PO (10:42)
[2020-04-27] MEDS: Metoprolol Tartrate 50 MG Tablet PO ×2 (10:43→20:35)
[2020-04-27] MEDS: dexAMETHasone 10 MG/ML Vial 6 MG IV (10:54)
[2020-04-27] MEDS: 0.9% Saline Lock 10 ML Syringe IV ×3 (10:55→20:40)
[2020-04-27] MEDS: Furosemide 20 MG Tablet PO (11:07)
[2020-04-27] MEDS: Furosemide 100 MG/10 ML Vial 60 MG IV (11:08)
--- NOTE | 2020-04-27 15:02 | PN_ITS ---
Patient Problems: Active and Suspected Problems Acute respiratory failure with hypoxia (Acute) COVID-19 (Acute) Subjective: Patient was seen and examined today, he does not feel well today and is on Airvo-I gave him extra Lasix today out of concern for excessive fluid. I talked with the patient's stepdaughter by phone to let her know how he was doing in the hospital. Patient does not complain of any chills or fever. Objective: General: Alert, Oriented x3, Cooperative, No apparent distress, Well developed, Well nourished HEENT: Atraumatic, PERRLA, EOMI, Normocephalic Oral: Moist Mucosa Neck: Supple, No JVD, Trachea Midline, Thyroid Normal Size and Texture Lungs: Clear to auscultation, Normal air movement, No rhonchi, No wheeze, No rales Cardiovascular: Regular rate, Regular Rhythm, Normal S1, Normal S2, No murmurs, PMI Normal, No rub noted, No Gallop Abdomen: Bowel Sounds Present, Soft, Non Tender, Non-Distended, No hernias noted Extremities: No clubbing, No cyanosis, No edema, Capillary Refill Less than 3 Seconds Skin: No rashes, No breakdown Musculoskeletal: No Tenderness to Palpation of Joints or Extremities Neurological: Cranial nerves II-XII grossly intact, Neuro grossly intact, Sensory exam intact to light touch and pain Psych/Mental Status: Normal Affect, Appropriate, Alert and oriented to time, place, person, mood and affect - Physical Exam Vitals/I&O's: Vital Signs Temp Pulse Resp BP Pulse Ox 98 F 75 20 H 142/82 H 92 04/27/20 12:50 04/27/20 12:50 04/27/20 12:50 04/27/20 12:50 04/27/20 12:50 Oxygen Flow Rate (L/min) 6 Oxygen Delivery Method Airvo Weight: 167.2 kg Body Mass Index (BMI) 50.0 Intake and Output for Last 24 Hours 04/25/20 04/26/20 04/27/20 23:59 23:59 23:59 Intake Total 1999 850 / 850 Output Total 1050 / 1050 Balance 1998 -200 / -200 Laboratory Results 04/27/20 07:00: Sodium 132 L, Potassium 3.7, Chloride 98, Carbon Dioxide 26.0, Anion Gap 8, BUN 40 H, Creatinine 1.46 H, Estim Creat Clear Calc 53.15, Est GFR (MDRD) Af Amer 62, Est GFR (MDRD) Non-Af 51 L, BUN/Creatinine Ratio 27.4 H, Glucose 92, Calcium 8.9, Total Bilirubin 0.40, AST 57 H, ALT 35, Alkaline Phosphatase 61, Total Protein 7.7, Albumin 3.0 L, Globulin 4.7 H, Albumin/Globulin Ratio 0.6 L Current Medications Acetaminophen (Acetaminophen 325 Mg Tablet) 650 mg PO Q6H PRN PRN PRN Reason: Pain Score 1-10/Temp > 100.7 F Albuterol Sulfate (Albuterol Sulfate 18 Gm Inhaler (200 Puffs)) 2 puff IH Q4H PRN PRN PRN Reason: Shortness of breath, wheezing Last Admin: 04/27/20 01:30 Dose: 2 puff Documented by: Apixaban (Apixaban 5 Mg Tablet) 5 mg PO BID [facility] Last Admin: 04/27/20 10:42 Dose: 5 mg Documented by: Aspirin (Aspirin 81 Mg Tab.Chew) 81 mg PO DAILY [facility] Last Admin: 04/27/20 10:42 Dose: 81 mg Documented by: Atorvastatin Calcium (Atorvastatin Calcium 40 Mg Tablet) 40 mg PO QHS [facility] Last Admin: 04/26/20 20:45 Dose: 40 mg Documented by: Bupropion HCl (Bupropion (Xl) 300 Mg Tablet.Xl) 300 mg PO DAILY [facility] Last Admin: 04/27/20 10:42 Dose: 300 mg Documented by: Citalopram Hydrobromide (Citalopram 40 Mg Tablet) 40 mg PO DAILY [facility] Last Admin: 04/27/20 10:42 Dose: 40 mg Documented by: Cyclobenzaprine HCl (Cyclobenzaprine Hcl 10 Mg Tablet) 10 mg PO QHS [facility] Last Admin: 04/26/20 20:47 Dose: 10 mg Documented by: Dexamethasone Sodium Phosphate (Dexamethasone 10 Mg/Ml Vial) 6 mg IV DAILY [facility] Last Admin: 04/27/20 10:54 Dose: 6 mg Documented by: Furosemide (Furosemide 20 Mg Tablet) 20 mg PO DAILY [facility] Last Admin: 04/27/20 11:07 Dose: 20 mg Documented by: Sodium Chloride () 250 mls @ 15 mls/hr IV .[id number] PRN PRN Reason: Saline Flush Sodium Chloride () 250 mls @ 15 mls/hr IV .[id number] PRN PRN Reason: Additional IVPB Infusion Remdesivir 100 mg/ Sodium (Chloride) 250 mls @ 125 mls/hr IV DAILY@2200 [facility] Stop: 04/29/20 23:59 Last Infusion: 04/26/20 22:52 Dose: Infused Documented by: Losartan Potassium (Losartan Potassium 100 Mg Tablet) 100 mg PO DAILY [facility] Last Admin: 04/27/20 10:42 Dose: 100 mg Documented by: Metoprolol Tartrate (Metoprolol Tartrate 50 Mg Tablet) 50 mg PO BID [facility] Last Admin: 04/27/20 10:43 Dose: 50 mg Documented by: Miscellaneous Information (Inhaler, Assist Devices 1 Each Spacer) 1 each INHALATION PRN PRN PRN Reason: WITH ALBUTEROL MDI Last Admin: 04/27/20 07:52 Dose: 1 each Documented by: Ondansetron HCl (Ondansetron 4 Mg/2 Ml Vial) 4 mg IV Q8H PRN PRN PRN Reason: NAUSEA/VOMITING Pantoprazole Sodium (Pantoprazole Sodium 40 Mg Tablet) 40 mg PO DAILY [facility] Last Admin: 04/27/20 10:42 Dose: 40 mg Documented by: Senna/Docusate Sodium (Senna/Docusate Sodium 1 Tablet) 2 tablet PO BID PRN PRN PRN Reason: Constipation Sodium Chloride (0.9% Saline Lock 10 Ml Syringe) 10 - 40 ml IV UD PRN PRN Reason: SALINE FLUSH Last Admin: 04/27/20 11:10 Dose: 10 ml Documented by: Tramadol HCl (Tramadol 50 Mg Tablet) 50 mg PO Q6H PRN PRN PRN Reason: Pain 1-10 Medical Necessity - Tobacco Use Smoking Status: Never smoker Assessment/Plan All Active Problems Acute respiratory failure with hypoxia (Acute) COVID-19 (Acute) #1 COVID-19 pneumonia-patient is being given remdesivir and dexamethasone #2 acute hypoxic respiratory failure secondary to #1-patient's pulse ox will be monitored #3 coronary artery disease #4 essential hypertension #5 paroxysmal atrial fibrillation-patient is on Eliquis chronically Again I gave the patient extra Lasix today due to concern about fluid retention, he takes hydrochlorothiazide at home but I have elected to place him on a small dose of Lasix instead on a daily basis. Inpatient E&M: [id number] [facility] Hosp L2
[2020-04-27] MEDS: hydrOXYzine PAM 25 MG Capsule 50 MG PO (20:34)
[2020-04-27] MEDS: cycloBENZAPRine HCl 10 MG Tablet PO (20:35)
[2020-04-27] MEDS: Atorvastatin Calcium 40 MG Tablet PO (20:35)
[2020-04-28] VITALS (26 sets, daily range): BP systolic 108–151; BP diastolic 59–106; PULSE 56–71; RESP 12–28; TEMP 36.1–36.6; O2SAT 91–99
[2020-04-28 06:42] LABS: ALB/GLOB Ratio 0.6 RATIO (0.9-2.4); AST(SGOT) 52 U/L (15-37); Alanine Aminotransfer ALT/SGPT 32 U/L (16-61); Albumin, Serum 2.7 g/dL (3.2-5.0); Alkaline Phosphatase 57 U/L (45-117); Anion Gap 6 (5-15); BUN 42 mg/dL (7-18); BUN/Creat Ratio 30.7 RATIO (10-20); Calcium,Total 8.5 mg/dL (8.5-10.1); Chloride 101 mmol/L (98-107); Creatinine, Serum 1.37 mg/dL (0.70-1.30); EST Glomerular Filtration Rate 55 mL/min (>60); Est Glom Filt Rate - Afr Amer 66 mL/min (>60); Estimated Creatinine Clearance 56.64 ml/min; Globulin 4.2 g/dL (2.2-4.2); Glucose 88 mg/dL (74-106); Potassium 3.9 mmol/L (3.5-5.1); Protein, Total 6.9 g/dL (6.4-8.2); Sodium Level 135 mmol/L (136-145)
--- NOTE | 2020-04-28 07:10 | PN_ITS ---
Patient Problems: Active and Suspected Problems Acute respiratory failure with hypoxia (Acute) COVID-19 (Acute) Subjective: The patient was seen and examined at the bedside this morning. Events from the last 24 hours have been reviewed. The patient is currently afebrile, hemodynamically stable and maintaining appropriate oxygen saturations on BiPAP at 16/8 centimeters of water with an FiO2 requirement of 65%. Yesterday, the patient was transition from nasal cannula to Airvo heated high flow. Last evening, the patient was placed on BiPAP support. The patient is resting comfortably this morning with ongoing dyspnea reported. The patient remains systemically anticoagulated on Eliquis. In addition, he remains on both re mdesivir and Decadron. Liver and renal function are stable. Objective: The patient's most recent lab work, culture data and imaging studies have all been personally reviewed. - Physical Exam Vitals/I&O's: Vital Signs Temp Pulse Resp BP Pulse Ox 97.0 F L 68 24 H 147/76 H 99 04/28/20 05:52 04/28/20 06:58 04/28/20 06:58 04/28/20 05:52 04/28/20 06:58 Oxygen Flow Rate (L/min) 60 Oxygen Delivery Method Bi-pap Weight: 368 lb 9.806 oz Body Mass Index (BMI) 50.0 Intake and Output for Last 24 Hours 04/26/20 04/27/20 04/28/20 23:59 23:59 23:59 Intake Total 1999 1830 / 1830 Output Total 1775 / 1775 500 / 500 Balance 1998 55 / 55 -500 / -500 General: Alert, Cooperative, No apparent distress, - - BiPAP mask currently in place. HEENT: Atraumatic, PERRLA, Normocephalic Oral: No Gingival or Mucosal Lesions/ Ulcerations Neck: Supple, No Nodes, Trachea Midline Lungs: No rhonchi, No wheeze, No rales, Diminished, Tachypneic Cardiovascular: Regular rate, Regular Rhythm Abdomen: Bowel Sounds Present, Soft, Non Tender, Obese Extremities: No clubbing, No cyanosis, No edema Skin: No breakdown Musculoskeletal: No Tenderness to Palpation of Joints or Extremities, No Muscle Wasting Lymphatic: No Cervical, Supraclavicular, or Inguinal Adenopathy Neurological: Cranial nerves II-XII grossly intact, Neuro grossly intact Psych/Mental Status: Normal Affect, Appropriate Labs (Last 48 Hours) 04/26/20 04/26/20 04/27/20 06:42 06:42 07:00 WBC 3.5 L RBC 5.40 Hgb 14.6 Hct 45.8 MCV 84.8 MCH 27.0 MCHC 31.9 L RDW Std Deviation 46.6 H RDW Coeff of Citlaly 14.9 H Plt Count 156 MPV 10.3 Immature Gran % (Auto) 0.600 Neut % (Auto) 77.7 H Lymph % (Auto) 15.4 L Starr % (Auto) 6.3 Eos % (Auto) 0.0 Baso % (Auto) 0.0 Absolute Neuts (auto) 2.7 Absolute Lymphs (auto) 0.54 L Nucleated RBC % 0 Differential Comment SCANNED Diff Path Review May foll Sodium 132 L 132 L Potassium 4.2 3.7 Chloride 100 98 Carbon Dioxide 24.0 26.0 Anion Gap 8 8 BUN 34 H 40 H Creatinine 1.42 H 1.46 H Estim Creat Clear Calc 54.65 53.15 Est GFR (MDRD) Af Amer 64 62 Est GFR (MDRD) Non-Af 53 L 51 L BUN/Creatinine Ratio 23.9 H 27.4 H Glucose 117 H 92 Calcium 8.9 8.9 Total Bilirubin 0.50 0.40 AST 58 H 57 H ALT 27 35 Alkaline Phosphatase 59 61 Total Protein 7.5 7.7 Albumin 2.9 L 3.0 L Globulin 4.6 H 4.7 H Albumin/Globulin Ratio 0.6 L 0.6 L 04/28/20 06:10 WBC RBC Hgb Hct MCV MCH MCHC RDW Std Deviation RDW Coeff of Citlaly Plt Count MPV Immature Gran % (Auto) Neut % (Auto) Lymph % (Auto) Starr % (Auto) Eos % (Auto) Baso % (Auto) Absolute Neuts (auto) Absolute Lymphs (auto) Nucleated RBC % Differential Comment Diff Path Review Sodium 135 L Potassium 3.9 Chloride 101 Carbon Dioxide 28.0 Anion Gap 6 BUN 42 H Creatinine 1.37 H Estim Creat Clear Calc 56.64 Est GFR (MDRD) Af Amer 66 Est GFR (MDRD) Non-Af 55 L BUN/Creatinine Ratio 30.7 H Glucose 88 Calcium 8.5 Total Bilirubin 0.50 AST 52 H ALT 32 Alkaline Phosphatase 57 Total Protein 6.9 Albumin 2.7 L Globulin 4.2 Albumin/Globulin Ratio 0.6 L Clinical Impression(s) from Imaging Studies Chest X-Ray 04/25/20 20:54 IMPRESSION: 1. Vascular congestion and interstitial edema, new since the prior study. Electronically Signed: Eduardo Figueroa MD (Brooks) at 21:50 EST , Service support , Current Medications Acetaminophen (Acetaminophen 325 Mg Tablet) 650 mg PO Q6H PRN PRN PRN Reason: Pain Score 1-10/Temp > 100.7 F Albuterol Sulfate (Albuterol Sulfate 18 Gm Inhaler (200 Puffs)) 2 puff IH Q4H PRN PRN PRN Reason: Shortness of breath, wheezing Last Admin: 04/27/20 01:30 Dose: 2 puff Documented by: Apixaban (Apixaban 5 Mg Tablet) 5 mg PO BID [facility] Last Admin: 04/27/20 20:35 Dose: 5 mg Documented by: Aspirin (Aspirin 81 Mg Tab.Chew) 81 mg PO DAILY [facility] [place] Last Admin: 04/27/20 10:42 Dose: 81 mg Documented by: Atorvastatin Calcium (Atorvastatin Calcium 40 Mg Tablet) 40 mg PO QHS [facility] [place] Last Admin: 04/27/20 20:35 Dose: 40 mg Documented by: Bupropion HCl (Bupropion (Xl) 300 Mg Tablet.Xl) 300 mg PO DAILY [facility] [place] Last Admin: 04/27/20 10:42 Dose: 300 mg Documented by: Citalopram Hydrobromide (Citalopram 40 Mg Tablet) 40 mg PO DAILY [facility] [place] Last Admin: 04/27/20 10:42 Dose: 40 mg Documented by: Cyclobenzaprine HCl (Cyclobenzaprine Hcl 10 Mg Tablet) 10 mg PO QHS [facility] [place] Last Admin: 04/27/20 20:35 Dose: 10 mg Documented by: Dexamethasone Sodium Phosphate (Dexamethasone 10 Mg/Ml Vial) 6 mg IV DAILY [facility] [place] Last Admin: 04/27/20 10:54 Dose: 6 mg Documented by: Furosemide (Furosemide 40 Mg/4 Ml Vial) 40 mg IV X1 ONE Stop: 04/28/20 07:31 Hydroxyzine Pamoate (Hydroxyzine Idania 25 Mg Capsule) 50 mg PO Q6H PRN PRN PRN Reason: ANXIETY Last Admin: 04/27/20 20:34 Dose: 50 mg Documented by: Sodium Chloride () 250 mls @ 15 mls/hr IV .[id number] PRN PRN Reason: Saline Flush Sodium Chloride () 250 mls @ 15 mls/hr IV .[id number] PRN PRN Reason: Additional IVPB Infusion Remdesivir 100 mg/ Sodium (Chloride) 250 mls @ 125 mls/hr IV DAILY@2200 [facility] [place] Stop: 04/29/20 23:59 Last Infusion: 04/27/20 22:43 Dose: Infused Documented by: Losartan Potassium (Losartan Potassium 100 Mg Tablet) 100 mg PO DAILY [facility] [place] Last Admin: 04/27/20 10:42 Dose: 100 mg Documented by: Metoprolol Tartrate (Metoprolol Tartrate 50 Mg Tablet) 50 mg PO BID [facility] [place] Last Admin: 04/27/20 20:35 Dose: 50 mg Documented by: Miscellaneous Information (Inhaler, Assist Devices 1 Each Spacer) 1 each INHALATION PRN PRN PRN Reason: WITH ALBUTEROL MDI Last Admin: 04/27/20 16:41 Dose: 1 each Documented by: Ondansetron HCl (Ondansetron 4 Mg/2 Ml Vial) 4 mg IV Q8H PRN PRN PRN Reason: NAUSEA/VOMITING Pantoprazole Sodium (Pantoprazole Sodium 40 Mg Tablet) 40 mg PO DAILY [facility] [place] Last Admin: 04/27/20 10:42 Dose: 40 mg Documented by: Senna/Docusate Sodium (Senna/Docusate Sodium 1 Tablet) 2 tablet PO BID PRN PRN PRN Reason: Constipation Sodium Chloride (0.9% Saline Lock 10 Ml Syringe) 10 - 40 ml IV UD PRN PRN Reason: SALINE FLUSH Last Admin: 04/27/20 20:40 Dose: 10 ml Documented by: Tramadol HCl (Tramadol 50 Mg Tablet) 50 mg PO Q6H PRN PRN PRN Reason: Pain 1-10 Medical Necessity - Tobacco Use Smoking Status: Never smoker Assessment/Plan All Active Problems Acute respiratory failure with hypoxia (Acute) COVID-19 (Acute) RECOMMENDATIONS: 1. Attempt to wean from BiPAP to Airvo this morning. Wean FiO2 to maintain oxygen saturations at or above 90%. 2. BiPAP utilization would be useful to assist with alveolar recruitment. 3. Continue systemic anticoagulation with Eliquis, per outpatient regimen. 4. Continue remdesivir with monitoring of liver and renal function. 5. Continue Decadron with plans to complete a 10-day treatment course. 6. Encourage incentive spirometer use and mobilize patient as tolerated. 7. Continue intermittent dosing of IV Lasix as tolerated by hemodynamics and renal function. IMPRESSIONS: 1. Acute hypoxemic respiratory failure secondary to COVID-19 pneumonia The patient was initially diagnosed with Covid approximately 1 week ago and was being managed as an outpatient, but developed worsening shortness of breath and hypoxemia. The patient is already systemically anticoagulated on Eliquis, per outpatient regimen. He will be continued on Decadron, with plans to complete a 10-day treatment course, along with remdesivir, with close monitoring of liver and renal function. Continue to wean supplemental oxygen to maintain saturations at or above 90%. Encourage incentive spirometer use and mobilize patient as tolerated. Continue intermittent dosing of IV diuretics as tolerated by hemodynamics and renal function. BiPAP utilization would be helpful in assisting with alveolar recruitment. 2. Obesity/hypertension/hyperlipidemia/paroxysmal atrial fibrillation/coronary artery disease/GERD Complicates care, management, recovery and prognosis. Continue home medications as indicated. This note was generated with [employer] software. It may contain incorrect words, spelling, and punctuation that were not noted in checking the note before signing. Inpatient E&M: [id number] [facility] L3
--- NOTE | 2020-04-28 07:45 | RAD_ITS ---
STUDY: X-RAY CHEST REASON FOR EXAM: Male, 69 years old. Respiratory Failure, COVID19 PNUEMONIA TECHNIQUE: AP COMPARISON: 04/25/2020 FINDINGS: EKG leads project over the chest. Multilobar pulmonary opacities with interstitial components predominantly central, stable since the prior study. No sizable pleural effusion. Stable size heart. Normal mediastinum and katie. Normal visualized aortic arch and descending thoracic aorta. No acute bony process. There is no demonstrated abnormality of the visualized soft tissue structures of the upper abdomen. RAD/Chest 1 View (Portable) IMPRESSION: Stable exam. Vascular congestion with interstitial edema favoring pulmonary edema although pneumonia including viral causes also possible. Electronically Signed: Eduardo Figueroa MD ([place]oks) at 8:06 EST , Service support ,
[2020-04-28] MEDS: Metoprolol Tartrate 50 MG Tablet PO ×2 (09:04→21:30)
[2020-04-28] MEDS: Aspirin 81 MG TAB.CHEW PO (09:04)
[2020-04-28] MEDS: Citalopram 40 MG TABLET PO (09:05)
[2020-04-28] MEDS: Pantoprazole Sodium 40 MG Tablet PO (09:06)
[2020-04-28] MEDS: buPROPion (XL) 300 MG TABLET.XL PO (09:06)
[2020-04-28] MEDS: APIXABAN 5 MG TABLET PO ×2 (09:06→21:31)
[2020-04-28] MEDS: Losartan Potassium 100 MG Tablet PO (09:06)
[2020-04-28] MEDS: 0.9% Saline Lock 10 ML Syringe IV ×2 (09:07→21:31)
[2020-04-28] MEDS: dexAMETHasone 10 MG/ML Vial 6 MG IV (09:07)
[2020-04-28] MEDS: hydrOXYzine PAM 25 MG Capsule 50 MG PO ×2 (09:07→21:29)
[2020-04-28] MEDS: Furosemide 40 MG/4 ML Vial IV (09:07)
--- NOTE | 2020-04-28 09:32 | NURSING ---
was placed on airvo for breakfast. after approx 10 minutes, pox started dropping to low 70s. bipap back on, pox between 84-93%. cps called to evaluate.
[2020-04-28] MEDS: traMADol 50 MG Tablet PO ×2 (11:20→22:17)
[2020-04-28 12:12] LABS: Pathologist Review Reviewed
[2020-04-28] MEDS: Ipratropium/Albuterol Sulfate 3 ML AMPUL.NEB INHALATION ×2 (13:30→20:03)
[2020-04-28] MEDS: HYDROcodone Bitartrate/Apap 5/325 Tablet PO (14:13)
--- NOTE | 2020-04-28 15:09 | PCM.PROGNOTE ---
Patient Problems: Active and Suspected Problems Acute respiratory failure with hypoxia (Acute) COVID-19 (Acute) Subjective: Patient was seen and examined today, he is currently on BiPAP. I have added aerosol treatments to his program medications today. Patient does not complain of any fevers or chills. - Physical Exam Vitals/I&O's: Vital Signs Temp Pulse Resp BP Pulse Ox 97.8 F 68 26 H 151/77 H 96 04/28/20 14:00 04/28/20 14:00 04/28/20 14:00 04/28/20 14:00 04/28/20 14:00 Oxygen Flow Rate (L/min) 60 Oxygen Delivery Method Bi-pap Weight: 167.2 kg Body Mass Index (BMI) 50.0 Intake and Output for Last 24 Hours 04/26/20 04/27/20 04/28/20 23:59 23:59 23:59 Intake Total 1999 1830 / 1830 420 / 420 Output Total 1775 / 1775 1425 / 1425 Balance 1998 55 / 55 -1005 / -1005 General: Alert, Oriented x3, Cooperative, No apparent distress, Well developed, Well nourished HEENT: Atraumatic, PERRLA, EOMI, Normocephalic Oral: Moist Mucosa Neck: Supple, No JVD, No Nuchal Rigidity, Trachea Midline, Thyroid Normal Size and Texture Lungs: Clear to auscultation, Normal air movement, No rhonchi, No wheeze, No rales Cardiovascular: Regular rate, Regular Rhythm, Normal S1, Normal S2, No murmurs, PMI Normal, No rub noted, No Gallop Abdomen: Bowel Sounds Present, Soft, Non Tender, Non-Distended, Obese Extremities: No clubbing, No cyanosis, No edema, Capillary Refill Less than 3 Seconds Skin: No rashes, No breakdown Musculoskeletal: No Tenderness to Palpation of Joints or Extremities Neurological: Cranial nerves II-XII grossly intact, Neuro grossly intact, Sensory exam intact to light touch and pain, Coordination normal Psych/Mental Status: Normal Affect, Appropriate, Alert and oriented to time, place, person, mood and affect Microbiology Past 72 Hours 04/26/20 00:40 Blood Culture (Wb) - Anticubital Left Blood Culture - Preliminary No growth in 48 hours. 12/25/20 21:13 Blood Culture (Wb) - Right Forearm Blood Culture - Preliminary No growth in 48 hours. Laboratory Results 04/26/20 06:42: Diff Path Review Reviewed 04/28/20 06:10: Sodium 135 L, Potassium 3.9, Chloride 101, Carbon Dioxide 28.0, Anion Gap 6, BUN 42 H, Creatinine 1.37 H, Estim Creat Clear Calc 56.64, Est GFR (MDRD) Af Amer 66, Est GFR (MDRD) Non-Af 55 L, BUN/Creatinine Ratio 30.7 H, Glucose 88, Calcium 8.5, Total Bilirubin 0.50, AST 52 H, ALT 32, Alkaline Phosphatase 57, Total Protein 6.9, Albumin 2.7 L, Globulin 4.2, Albumin/Globulin Ratio 0.6 L Current Medications Acetaminophen (Acetaminophen 325 Mg Tablet) 650 mg PO Q6H PRN PRN PRN Reason: Pain Score 1-10/Temp > 100.7 F Hydrocodone Bitart/Acetaminophen (Hydrocodone Bitartrate/Apap 5/325 Tablet) 1 tablet PO Q4H PRN PRN PRN Reason: Pain Score 6-10 Last Admin: 04/28/20 14:13 Dose: 1 tablet Documented by: Albuterol Sulfate (Albuterol Sulfate 18 Gm Inhaler (200 Puffs)) 2 puff IH Q4H PRN PRN PRN Reason: Shortness of breath, wheezing Last Admin: 04/27/20 01:30 Dose: 2 puff Documented by: Albuterol/Ipratropium (Ipratropium/Albuterol Sulfate 3 Ml Ampul.Neb) 3 ml INHALATION Q6HWA.RT [facility] Last Admin: 04/28/20 13:30 Dose: 3 ml Documented by: Apixaban (Apixaban 5 Mg Tablet) 5 mg PO BID [facility] Last Admin: 04/28/20 09:06 Dose: 5 mg Documented by: Aspirin (Aspirin 81 Mg Tab.Chew) 81 mg PO DAILY [facility] Last Admin: 04/28/20 09:04 Dose: 81 mg Documented by: Atorvastatin Calcium (Atorvastatin Calcium 40 Mg Tablet) 40 mg PO QHS [facility] Last Admin: 04/27/20 20:35 Dose: 40 mg Documented by: Bupropion HCl (Bupropion (Xl) 300 Mg Tablet.Xl) 300 mg PO DAILY [facility] Last Admin: 04/28/20 09:06 Dose: 300 mg Documented by: Citalopram Hydrobromide (Citalopram 40 Mg Tablet) 40 mg PO DAILY [facility] Last Admin: 04/28/20 09:05 Dose: 40 mg Documented by: Cyclobenzaprine HCl (Cyclobenzaprine Hcl 10 Mg Tablet) 10 mg PO QHS [facility] Last Admin: 04/27/20 20:35 Dose: 10 mg Documented by: Dexamethasone (Dexamethasone 4 Mg Tablet) 6 mg PO DAILY [facility] Stop: 05/04/20 10:01 Hydroxyzine Pamoate (Hydroxyzine Idania 25 Mg Capsule) 50 mg PO Q6H PRN PRN PRN Reason: ANXIETY Last Admin: 04/28/20 09:07 Dose: 50 mg Documented by: Sodium Chloride () 250 mls @ 15 mls/hr IV .[id number] PRN PRN Reason: Saline Flush Sodium Chloride () 250 mls @ 15 mls/hr IV .[id number] PRN PRN Reason: Additional IVPB Infusion Remdesivir 100 mg/ Sodium (Chloride) 250 mls @ 125 mls/hr IV DAILY@2200 [facility] Stop: 04/29/20 23:59 Last Infusion: 04/27/20 22:43 Dose: Infused Documented by: Losartan Potassium (Losartan Potassium 100 Mg Tablet) 100 mg PO DAILY [facility] Last Admin: 04/28/20 09:06 Dose: 100 mg Documented by: Metoprolol Tartrate (Metoprolol Tartrate 50 Mg Tablet) 50 mg PO BID [facility] Last Admin: 04/28/20 09:04 Dose: 50 mg Documented by: Miscellaneous Information (Inhaler, Assist Devices 1 Each Spacer) 1 each INHALATION PRN PRN PRN Reason: WITH ALBUTEROL MDI Last Admin: 04/27/20 16:41 Dose: 1 each Documented by: Ondansetron HCl (Ondansetron 4 Mg/2 Ml Vial) 4 mg IV Q8H PRN PRN PRN Reason: NAUSEA/VOMITING Pantoprazole Sodium (Pantoprazole Sodium 40 Mg Tablet) 40 mg PO DAILY [facility] Last Admin: 04/28/20 09:06 Dose: 40 mg Documented by: Senna/Docusate Sodium (Senna/Docusate Sodium 1 Tablet) 2 tablet PO BID PRN PRN PRN Reason: Constipation Sodium Chloride (0.9% Saline Lock 10 Ml Syringe) 10 - 40 ml IV UD PRN PRN Reason: SALINE FLUSH Last Admin: 04/28/20 09:07 Dose: 10 ml Documented by: Tramadol HCl (Tramadol 50 Mg Tablet) 50 mg PO Q6H PRN PRN PRN Reason: Pain 1-5 Last Admin: 04/28/20 11:20 Dose: 50 mg Documented by: Medical Necessity - Tobacco Use Smoking Status: Never smoker Assessment/Plan All Active Problems Acute respiratory failure with hypoxia (Acute) COVID-19 (Acute) #1 COVID-19 pneumonia-patient is being given remdesivir and dexamethasone #2 acute hypoxic respiratory failure secondary to #1-patient's pulse ox will be monitored, he is currently on BiPAP, I will raise the patient's Lasix dosage to 40 mg daily starting tomorrow, today we will give an extra dose of 20 mg orally #3 coronary artery disease #4 essential hypertension #5 paroxysmal atrial fibrillation-patient is on Eliquis chronically Inpatient E&M: 20499 Subs Hosp L2
--- NOTE | 2020-04-28 15:54 | CON.PCM_ITS ---
Problem List (1) COVID-19 Status: Acute Reason for Consult: covid Consulted by: Dr. Alcantar History of Present Illness: The patient is a 69 year old M presented 04/25 with 2-3 weeks of chills, loss of smell, aches, cough, and SOB. No n/v/d. Home pulse ox dropped into mid 80s, family convinced him to go to ED. Admitted on dex, remdesivir, feeling a little better. On bipap. Fever resolved. Full ROS performed and neg except as noted above. - Medical History Past Medical History (Chronic Problems): Chronic Problems Aortic stenosis (Chronic) CAD (coronary artery disease) (Chronic) Cardiac murmur (Chronic) Rheumatic fever (Chronic) Hyperlipidemia (Chronic) Hypertension (Chronic) Atrial fibrillation (Chronic) Allergies/Adverse Reactions: Allergies Penicillins Allergy (Verified 04/25/20 20:39) Unknown Sulfa (Sulfonamide Antibiotics) Allergy (Verified 04/25/20 20:39) Unknown warfarin [From Coumadin] Adverse Reaction (Verified 04/25/20 20:39) Unknown Home Medications: Ambulatory Orders Medication Instructions Recorded Fluticasone 0.05% [Flonase Nasal 2 spray NASAL PRN PRN 08/14/13 [facility]] Atorvastatin Calcium [Lipitor] 40 mg PO QHS tablet 03/10/16 Aspirin [Aspirin, Baby] 81 mg PO DAILY@0800 06/06/16 Hydrochlorothiazide [Hctz] 25 mg PO DAILY 06/06/16 Losartan Potassium [Cozaar] 100 mg PO DAILY 06/06/16 Apixaban [Eliquis] 5 mg PO BID 07/08/16 buPROPion XL [Wellbutrin Xl] 300 mg PO DAILY 01/28/19 Benzonatate [Tessalon Perle] 200 mg PO TID PRN PRN 04/25/20 Citalopram [Celexa] 40 mg PO DAILY 04/25/20 Metoprolol Tartrate 50 mg PO BID 04/25/20 Oxycodone HCl/Acetaminophen 1 - 2 tab PO Q6H PRN PRN 04/25/20 [Percocet 5/325] Pantoprazole Sodium [Protonix] 40 mg PO DAILY 04/25/20 cycloBENZAPRine HCl [Flexeril] 10 mg PO QHS 04/25/20 traMADol [Ultram (G)] 50 mg PO Q6H PRN PRN 04/25/20 - Social History Tobacco Use: non-smoker Vital Signs Temp Pulse Resp BP Pulse Ox 97.8 F 68 26 H 151/77 H 96 04/28/20 14:00 04/28/20 14:00 04/28/20 14:00 04/28/20 14:00 04/28/20 14:00 Oxygen Flow Rate (L/min) 60 Oxygen Delivery Method Bi-pap Weight: 167.2 kg Body Mass Index (BMI) 50.0 Microbiology Past 72 Hours 04/26/20 00:40 Blood Culture - Preliminary Blood Culture (Wb) - Anticubital Left No growth in 48 hours. 04/25/20 21:13 Blood Culture - Preliminary Blood Culture (Wb) - Right Forearm No growth in 48 hours. Laboratory Tests Past 24 Hrs 04/26/20 04/28/20 06:42 06:10 Diff Path Review Reviewed Sodium 135 L Potassium 3.9 Chloride 101 Carbon Dioxide 28.0 Anion Gap 6 BUN 42 H Creatinine 1.37 H Estim Creat Clear Calc 56.64 Est GFR (MDRD) Af Amer 66 Est GFR (MDRD) Non-Af 55 L BUN/Creatinine Ratio 30.7 H Glucose 88 Calcium 8.5 Total Bilirubin 0.50 AST 52 H ALT 32 Alkaline Phosphatase 57 Total Protein 6.9 Albumin 2.7 L Globulin 4.2 Albumin/Globulin Ratio 0.6 L - Other Studies Radiology: [] reviewed Other Studies: [] Route of nutrition/ use of supplements: [] Nutritional Intake: [] IV Site: [] Lares Catheter: [] - Physical Exam General: Alert, Oriented x3, Cooperative HEENT: Atraumatic, PERRLA, EOMI Neck: Supple, No Nodes Lungs: Diminished Cardiovascular: Regular rate, Regular Rhythm Abdomen: Soft, Non Tender, Non-Distended Extremities: No edema Skin: No rashes IV Site: Peripheral, without redness Musculoskeletal: No Tenderness to Palpation of Joints or Extremities Neurological: Cranial nerves II-XII grossly intact - Assessment/Plan Antibiotics: [] Assessment/Plan: [] Active and Suspected Problems Acute respiratory failure with hypoxia (Acute) COVID-19 (Acute) covid with hypoxia - on dex, will change to po. On remdesivir, eliquis. Fever resolved. Sx started around 04/14. Will follow, thank you
[2020-04-28] MEDS: Atorvastatin Calcium 40 MG Tablet PO (21:30)
[2020-04-28] MEDS: cycloBENZAPRine HCl 10 MG Tablet PO (21:31)
[2020-04-29] VITALS (47 sets, daily range): BP systolic 111–223; BP diastolic 35–142; PULSE 57–102; RESP 12–40; TEMP 36.2–38.3; O2SAT 63–100
--- NOTE | 2020-04-29 00:13 | CPS ---
Pt. switched over to AVAPS for the time being. Oxygen needs increased, resulting in a use of 80% FiO2. Intending to try and wean FiO2 through out the night
--- NOTE | 2020-04-29 02:35 | NURSING ---
Kg RN at bedside assisting pt with urinal. Bipap mask removed for an instance to get a drink per pt request and returned onto pt's face. Mask adjusted to obtain adequate seal. SpO2 80-85% for several minutes. Pt monitored by this RN. CPS then notified by devulcanizer charger to come assess pt. DUARTE Bar in room with pt.
[2020-04-29 03:31] LABS: Allen Test Positive; Base Excess 1 mmol/L (-2 to +2); Bicarbonate 24.7 mmol/L (22-26); Blood Gas Specimen Type ART; FI02 100; O2 Delivery Device BiPAP; PEEP 10; PO2 58 mmHG (75-100); RR 12; SITE R Radial; SO2 91 % (95-99); Total Carbon Dioxide 26 mmol/L; Vt 450; pCO2 36.5 mmHg (35-45); pH 7.44 (7.35-7.45)
[2020-04-29] MEDS: 0.9% Saline Lock 10 ML Syringe IV (03:34)
[2020-04-29] MEDS: Furosemide 40 MG/4 ML Vial IV ×3 (03:34→22:11)
--- NOTE | 2020-04-29 04:03 | CPS ---
Pt.'s FiO2 and PEEP increased to help maintain pt.'s SpO2. Dr. Gomez gave verbal order for ABG. ABG ran on pt., and Dr. Gomez notified of results. Lasix being pushed at this time to help with fluid retention.
--- NOTE | 2020-04-29 06:10 | NURSING ---
Pt transferred to ICU per Dr. Zaman's request after being notified by CPS due to declining respiratory status maxed out on bipap. Yosvany, DELIVERY TRUCK DRIVER assisted with transfer on bipap to [id number]. Bedside report given to Laura Velarde RN.
--- NOTE | 2020-04-29 06:15 | PCM.PN.INT ---
Subjective: The patient was seen and examined at the bedside this morning. Events from the last 24 hours have been reviewed. The patient is currently afebrile and hemodynamically stable. However, the patient has continued to decompensate from a respiratory perspective over the course of the night. I was notified by respiratory staff this morning that the patient was on continuous BiPAP with an FiO2 requirement of 100% and marginal oxygen saturations. Therefore, the patient was moved to the medical intensive care unit. The patient did receive an additional one-time dose of IV Lasix early this morning. Nevertheless, despite maximal support with BiPAP, the patient continued to decompensate. Therefore, the decision was made to emergently intubate the patient, following a discussion with the patient, his stepdaughter and . Intubation Indication: Respiratory failure Consent was obtained from: Patient The patient was placed in the appropriate sniffing position. Preoxygenated sedation via BiPAP was provided for a minimum of 3 minutes. The patient had continuous cardiac as well as pulse oximetry monitoring during the procedure. Procedure sedation was provided by the administration of 4 mg of Versed, 20 mg of etomidate and 100 mg of succinylcholine. Direct laryngoscopy was then performed using a number 4 MAC blade, which revealed a grade 1 view. A 7.5 mm endotracheal tube was visualized advancing between the cords to the level of 24 cm at the lip. The stylette was then removed and discarded. Tube placement was confirmed by fogging in the tube along with equal and bilateral breath sounds. Colorimetric change was visualized on the CO2 meter. The cuff was then inflated and the tube secured using a commercially available device. A good pulse oximetry waveform was seen on the monitor throughout the procedure. A portable chest x-ray has been ordered to confirm appropriate placement. The patient tolerated the procedure well. Following the patient's intubation and upon review of the patient's chest x-ray, it did appear that the patient's endotracheal tube had retracted to the level of the clavicles. At that time, a bedside bronchoscope was introduced into the patient's endotracheal tube and revealed that the tube itself had migrated just superior to the vocal cords, likely secondary to the high degree of PEEP that was being delivered. The old endotracheal tube was removed and a new 7.5 endotracheal tube was placed via video laryngoscopy and secured to the patient's lips. Follow-up chest imaging did reveal that the endotracheal tube was now appropriately positioned. Due to the patient's marginal oxygen saturations status, in addition to high doses of propofol and fentanyl, the patient was initiated on cis atracurium. He was also started on empiric antimicrobials after a sputum culture was obtained. Objective: The patient's most recent lab work, culture data and imaging studies have all been personally reviewed. Surface echocardiogram from October 2019 revealed moderate concentric LVH with an ejection fraction of 75%. Blood cultures are pending. Respiratory viral panel is pending. Sputum culture is pending. General: - - The patient is now intubated, sedated and mechanically ventilated. HEENT: Atraumatic, PERRLA, Normocephalic Oral: No Gingival or Mucosal Lesions/ Ulcerations, - - Endotracheal and OG tubes are now in place. Neck: Supple, No Nodes, Trachea Midline Lungs: Diminished, Tachypneic, - - Coarse mechanical breath sounds. Cardiovascular: Regular rate, Regular Rhythm Abdomen: Bowel Sounds Present, Soft, Non Tender, Obese Extremities: No clubbing, No cyanosis, No edema Skin: No breakdown Musculoskeletal: No Tenderness to Palpation of Joints or Extremities Lymphatic: No Cervical, Supraclavicular, or Inguinal Adenopathy Neurological: - - Unable to assess neurological status given level of sedation and use of paralytics. Vital Signs Temp Pulse Resp BP Pulse Ox 97.2 F L 65 28 H 124/58 H 84 04/29/20 05:12 04/29/20 05:12 04/29/20 05:40 04/29/20 05:12 04/29/20 05:40 Oxygen Flow Rate (L/min) 60 Oxygen Delivery Method Bi-pap Weight: 368 lb 9.806 oz Body Mass Index (BMI) 50.0 Intake and Output for Last 24 Hours 04/27/20 04/28/20 04/29/20 23:59 23:59 23:59 Intake Total 1830 / 1830 1070 / 1470 700 / 700 Output Total 1775 / 1775 2125 / 2125 650 / 650 Balance 55 / 55 -1055 / -655 50 / 50 Labs (Last 48 Hours) 04/26/20 04/27/20 04/28/20 06:42 07:00 06:10 Diff Path Review Reviewed Specimen Type Sample Site pH Bicarbonate Actual Total CO2 Base Excess O2 Saturation O2 % ABG pCO2 ABG pO2 Philip Test Respiration Rate O2 Delivery Device Tidal Volume POC PEEP Sodium 132 L 135 L Potassium 3.7 3.9 Chloride 98 101 Carbon Dioxide 26.0 28.0 Anion Gap 8 6 BUN 40 H 42 H Creatinine 1.46 H 1.37 H Estim Creat Clear Calc 53.15 56.64 Est GFR (MDRD) Af Amer 62 66 Est GFR (MDRD) Non-Af 51 L 55 L BUN/Creatinine Ratio 27.4 H 30.7 H Glucose 92 88 Calcium 8.9 8.5 Total Bilirubin 0.40 0.50 AST 57 H 52 H ALT 35 32 Alkaline Phosphatase 61 57 Total Protein 7.7 6.9 Albumin 3.0 L 2.7 L Globulin 4.7 H 4.2 Albumin/Globulin Ratio 0.6 L 0.6 L 04/29/20 03:23 Diff Path Review Specimen Type ART Sample Site R Radial pH 7.44 Bicarbonate Actual 24.7 Total CO2 26 Base Excess 1 O2 Saturation 91 L O2 % 100 ABG pCO2 36.5 ABG pO2 58 L Philip Test Positive Respiration Rate 12 O2 Delivery Device BiPAP Tidal Volume 450 POC PEEP 10 Sodium Potassium Chloride Carbon Dioxide Anion Gap BUN Creatinine Estim Creat Clear Calc Est GFR (MDRD) Af Amer Est GFR (MDRD) Non-Af BUN/Creatinine Ratio Glucose Calcium Total Bilirubin AST ALT Alkaline Phosphatase Total Protein Albumin Globulin Albumin/Globulin Ratio Microbiology 04/26/20 00:40 Blood Culture (Wb) - Anticubital Left Blood Culture - Preliminary No growth in 48 hours. 04/25/20 21:13 Blood Culture (Wb) - Right Forearm Blood Culture - Preliminary No growth in 48 hours. Clinical Impression(s) from Imaging Studies Chest X-Ray 04/25/20 20:54 IMPRESSION: 1. Vascular congestion and interstitial edema, new since the prior study. Electronically Signed: Eduardo Figueroa MD ([facility]) at 21:50 EST , Service support , Chest X-Ray 04/28/20 07:45 IMPRESSION: Stable exam. Vascular congestion with interstitial edema favoring pulmonary edema although pneumonia including viral causes also possible. Electronically Signed: Eduardo Figueroa MD ([facility]) at 8:06 EST , Service support , Medical Necessity - Tobacco Use Smoking Status: Never smoker Assessment/Plan All Active Problems Acute respiratory failure with hypoxia (Acute) COVID-19 (Acute) RECOMMENDATIONS: 1. Obtain follow-up chest x-ray status post intubation. 2. Continue propofol and fentanyl for sedation. 3. Start cis atracurium infusion. 4. Obtain nutrition consultation to assist with tube feed recommendations. 5. Start empiric antimicrobials, pending results of sputum culture. 6. Continue twice daily IV diuretic therapy as tolerated by hemodynamics and renal function. 7. Continue systemic anticoagulation with Eliquis. 8. Obtain arterial blood gas in 1 hour. 9. Continue remdesivir and Decadron. 10. Continue Protonix for GI prophylaxis. IMPRESSIONS: 1. Acute hypoxemic respiratory failure secondary to ARDS due to COVID-19 pneumonia The patient was initially diagnosed 1 week prior to hospital admission. Although attempts were made to utilize high flow oxygen and noninvasive positive pressure ventilatory support, the patient continued to decompensate from a respiratory perspective, requiring transfer to ICU and subsequent intubation on April 29. The patient has gone on to develop fulminant ARDS with high ventilator requirements. The patient will be continued on supportive measures including Decadron and remdesivir. In addition, empiric antimicrobials will be initiated this morning, pending results of sputum culture. The patient will be continued on diuretics as tolerated by hemodynamics and renal function. Goal to wean FiO2 and PEEP to maintain oxygen saturations at or above 90%. Will obtain tube feed recommendations and start accordingly. Arterial blood gas will be obtained in 1 hour. Given the patient's tenuous respiratory status, pharmacologic paralysis will also be employed. 2. Obesity/hypertension/hyperlipidemia/paroxysmal atrial fibrillation/coronary artery disease/GERD Complicates care, management, recovery and prognosis. Continue home medications as indicated. TIME: 82 minutes of critical care time, inclusive of procedures, was spent addressing the patient's acute hypoxemic respiratory failure secondary to ARDS due to COVID-19 pneumonia, paroxysmal atrial fibrillation, coronary artery disease, review of all data and collaboration with care team. ([id number]) Procedures: 13003 Critial Care Addl 30 Min 9xxxx: [id number] Critical care first hour
[2020-04-29] MEDS: Ipratropium/Albuterol Sulfate 3 ML AMPUL.NEB INHALATION ×3 (07:30→19:22)
[2020-04-29 07:32] LABS: ALB/GLOB Ratio 0.8 RATIO (0.9-2.4); AST(SGOT) 53 U/L (15-37); Alanine Aminotransfer ALT/SGPT 36 U/L (16-61); Alkaline Phosphatase 68 U/L (45-117); Anion Gap 8 (5-15); BUN 48 mg/dL (7-18); BUN/Creat Ratio 34.5 RATIO (10-20); Calcium,Total 8.7 mg/dL (8.5-10.1); Chloride 100 mmol/L (98-107); Creatinine, Serum 1.39 mg/dL (0.70-1.30); EST Glomerular Filtration Rate 54 mL/min (>60); Est Glom Filt Rate - Afr Amer 65 mL/min (>60); Estimated Creatinine Clearance 55.83 ml/min; Glucose 78 mg/dL (74-106); Potassium 4.4 mmol/L (3.5-5.1); Sodium Level 137 mmol/L (136-145)
[2020-04-29] MEDS: Midazolam 2 MG/2 ML Syringe 4 MG IV (08:09)
[2020-04-29] MEDS: Etomidate 20 MG/10 ML Vial IV (08:10)
[2020-04-29] MEDS: Propofol 10MG/Ml 1,000 MG/100 ML Bottle 10 MG CONT INF (08:15)
[2020-04-29 08:29] LABS: Absolute Lymphocyte Count 0.97 X10^3/uL (0.83-4.51); Absolute Neutrophil Count 8.2 X10^3/uL (2.0-7.7); Basophil# 0.01 X10^3/uL; Basophil% 0.1 % (0-1); Eosinophil# 0.01 X10^3/uL; Eosinophils% 0.1 % (0-5); Hemoglobin 15.1 g/dL (13.0-16.5); Lymphocyte # 0.97 X10^3/ul (4.0); Lymphocyte % 9.9 % (19-41); Mean Corp Hgb Conc 30.8 g/dL (32-36); Mean Corpuscular Hgb 26.5 pg (27.0-32.0); Mean Platelet Vol. 10.3 fl (6.2-12.0); Monocyte# 0.51 X10^3/uL; Monocyte% 5.2 % (0-10); NRBC Flagged by Analyzer 0 % (0-5); Neutrophil # 8.24 X10^3/uL (2.7-7.7); Neutrophil % 83.7 % (47-70); Platelet Count 263 K/mm3 (150-450); RBC Distribution Width CV 15.2 % (11.6-14.6); RBC Distribution Width SD 47.5 fl (35.1-43.9); White Blood Count 9.8 K/mm3 (4.4-11.0)
--- NOTE | 2020-04-29 08:31 | RAD_ITS ---
STUDY: X-RAY CHEST REASON FOR EXAM: Male, 69 years old. ET tube placement, OG tube placement TECHNIQUE: AP COMPARISON: 04/28/2020 FINDINGS: Endotracheal tube has been placed with tip at the level of the first rib, recommend advancing 4-5 cm. Enteric/gastric tube extends the stomach. EKG leads project over the chest. Multilobar pulmonary opacities with interstitial components predominantly central, overall worse since the prior study. No sizable pleural effusion. Stable size heart. Normal mediastinum and katie. Normal visualized aortic arch and descending thoracic aorta. No acute bony process. There is no demonstrated abnormality of the visualized soft tissue structures of the upper abdomen. RAD/Chest 1 View (Portable) IMPRESSION: 1. Suboptimal placement of endotracheal tube with tip terminating at the first rib. Recommend advancing 4-5 cm. 2. Worsening congestion with interstitial edema favoring pulmonary edema although pneumonia including viral causes also possible. Electronically Signed: Eduardo Figueroa MD ([facility]) at 9:39 EST , Service support ,
--- NOTE | 2020-04-29 08:52 | RAD_ITS ---
STUDY: X-RAY CHEST REASON FOR EXAM: Male, 69 years old. ET tube reposition TECHNIQUE: AP COMPARISON: Earlier today FINDINGS: Endotracheal tube is stable with tip at the C7-T1, recommend advancing 4-5 cm. Enteric/gastric tube extends the stomach. EKG leads project over the chest. Multilobar pulmonary opacities with interstitial components predominantly central, overall worse since the prior study. No sizable pleural effusion. Stable size heart. Sternal wires are noted. Normal mediastinum and katie. Normal visualized aortic arch and descending thoracic aorta. No acute bony process. There is no demonstrated abnormality of the visualized soft tissue structures of the upper abdomen. RAD/Chest 1 View (Portable) IMPRESSION: 1. Persistent suboptimal placement of endotracheal tube with tip terminating at the first rib. Recommend advancing 4-5 cm. 2. Worsening vascular congestion with interstitial edema favoring pulmonary edema although pneumonia (including viral causes) also possible. Electronically Signed: Eduardo Figueroa MD ([facility]) at 9:41 EST , Service support ,
[2020-04-29 09:22] LABS: BNP,B-Type NATRIURETIC PEPTIDE 20.9 pg/mL (0-100)
--- NOTE | 2020-04-29 09:50 | RAD_ITS ---
STUDY: X-RAY CHEST REASON FOR EXAM: Male, 69 years old. ETT TUBE REPLACED #2. OG TUBE PLACEMENT TECHNIQUE: AP COMPARISON: 04/29/2020 FINDINGS: Endotracheal tube is stable with tip 3.5 cm above the yisel Enteric/gastric tube extends the stomach. EKG leads project over the chest. Multilobar pulmonary opacities with interstitial components predominantly central, overall less conspicuous since the prior study. No sizable pleural effusion. Stable size heart. Sternal wires are noted. Normal mediastinum and katie. Normal visualized aortic arch and descending thoracic aorta. No acute bony process. There is no demonstrated abnormality of the visualized soft tissue structures of the upper abdomen. RAD/Chest 1 View (Portable) IMPRESSION: 1. Endotracheal tube in satisfactory position with tip 3.5 cm above the yisel 2. Less conspicuous (since earlier today) vascular congestion with interstitial edema favoring pulmonary edema although pneumonia (including viral causes) also possible. Electronically Signed: Eduardo Figueroa MD ([facility]) at 10:20 EST , Service support ,
--- NOTE | 2020-04-29 10:11 | RAD_ITS ---
STUDY: X-RAY CHEST REASON FOR EXAM: Male, 69 years old. ET tube reposition #3 TECHNIQUE: Single AP portable view of the chest. COMPARISON: Earlier today FINDINGS: Endotracheal tube is mildly advanced since 30 minutes previous with tip 2.2 cm above the yisel Enteric/gastric tube extends the stomach. EKG leads project over the chest. Multilobar pulmonary opacities with interstitial components predominantly central, overall stable since the prior study. No sizable pleural effusion. Stable size heart. Sternal wires are noted. Normal mediastinum and katie. There is atherosclerotic calcification of the aortic arch with tortuosity. No acute bony process. There is no demonstrated abnormality of the visualized soft tissue structures of the upper abdomen. RAD/Chest 1 View (Portable) IMPRESSION: 1. Endotracheal tube terminates with tip 2.2 cm above the yisel 2. Similar vascular congestion with interstitial edema favoring pulmonary edema although pneumonia (including viral causes) also possible. Electronically Signed: Eduardo Figueroa MD ([facility]) at 10:35 EST , Service support ,
[2020-04-29] MEDS: Propofol 10MG/Ml 1,000 MG/100 ML Bottle 35.1 MG CONT INF (10:30)
--- NOTE | 2020-04-29 10:35 | PN.ID_ITS ---
Patient Problems: Active and Suspected Problems Acute respiratory failure with hypoxia (Acute) COVID-19 (Acute) Subjective: Moved to icu and intubated this AM. - Physical Exam Vitals/I&O's: Vital Signs Temp Pulse Resp BP Pulse Ox 98.9 F 71 26 H 150/78 H 92 04/29/20 06:08 04/29/20 06:30 04/29/20 06:30 04/29/20 06:30 04/29/20 06:30 Oxygen Flow Rate (L/min) 60 Oxygen Delivery Method Bi-pap Weight: 167.2 kg Body Mass Index (BMI) 50.0 Intake and Output for Last 24 Hours 04/27/20 04/28/20 04/29/20 23:59 23:59 23:59 Intake Total 1830 / 1830 1070 / 1470 700 / 700 Output Total 1775 / 1775 2125 / 2125 650 / 650 Balance 55 / 55 -1055 / -655 50 / 50 General: Non-Cooperative Lungs: Diminished Cardiovascular: Regular rate, Regular Rhythm Abdomen: Soft, Non Tender, Non-Distended Skin: No rashes Microbiology Past 72 Hours 04/26/20 00:40 Blood Culture (Wb) - Anticubital Left Blood Culture - Preliminary No growth in 48 hours. 04/25/20 21:13 Blood Culture (Wb) - Right Forearm Blood Culture - Preliminary No growth in 48 hours. Laboratory Results 04/26/20 06:42: Diff Path Review Reviewed 04/29/20 03:23: Specimen Type ART, Sample Site R Radial, pH 7.44, Bicarbonate A ctual 24.7, Total CO2 26, Base Excess 1, O2 Saturation 91 L, O2 % 100, ABG pCO2 36.5, ABG pO2 58 L, Philip Test Positive, Respiration Rate 12, O2 Delivery Device BiPAP, Tidal Volume 450, POC PEEP 10 04/29/20 05:40: Sodium 137, Potassium 4.4, Chloride 100, Carbon Dioxide 29.0, Anion Gap 8, BUN 48 H, Creatinine 1.39 H, Estim Creat Clear Calc 55.83, Est GFR (MDRD) Af Amer 65, Est GFR (MDRD) Non-Af 54 L, BUN/Creatinine Ratio 34.5 H, Glucose 78, Calcium 8.7, Total Bilirubin 0.80, AST 53 H, ALT 36, Alkaline Phosphatase 68, Total Protein 7.0, Albumin 3.0 L, Globulin 4.0, Albumin/Globulin Ratio 0.8 L 04/29/20 05:40: WBC 9.8, RBC 5.70, Hgb 15.1, Hct 49.0, MCV 86.0, MCH 26.5 L, MCHC 30.8 L, RDW Std Deviation 47.5 H, RDW Coeff of Citlaly 15.2 H, Plt Count 263, MPV 10.3, Immature Gran % (Auto) 1.000 H, Neut % (Auto) 83.7 H, Lymph % (Auto) 9.9 L, Garrard % (Auto) 5.2, Eos % (Auto) 0.1, Baso % (Auto) 0.1, Absolute Neuts (auto) 8.2 H, Absolute Lymphs (auto) 0.97, Nucleated RBC % 0 04/29/20 05:40: Troponin I < 0.015 04/29/20 05:40: B-Natriuretic Peptide 20.9 Current Medications Acetaminophen (Acetaminophen 325 Mg Tablet) 650 mg PO Q6H PRN PRN PRN Reason: Pain Score 1-10/Temp > 100.7 F Albuterol Sulfate (Albuterol Sulfate 18 Gm Inhaler (200 Puffs)) 2 puff IH Q4H PRN PRN PRN Reason: Shortness of breath, wheezing Last Admin: 04/27/20 01:30 Dose: 2 puff Documented by: Albuterol/Ipratropium (Ipratropium/Albuterol Sulfate 3 Ml Ampul.Neb) 3 ml INHALATION Q6HWA.RT [facility] Last Admin: 04/29/20 07:30 Dose: 3 ml Documented by: Apixaban (Apixaban 5 Mg Tablet) 5 mg PO BID [facility] Last Admin: 04/28/20 21:31 Dose: 5 mg Documented by: Aspirin (Aspirin 81 Mg Tab.Chew) 81 mg PO DAILY [facility] Last Admin: 04/28/20 09:04 Dose: 81 mg Documented by: Atorvastatin Calcium (Atorvastatin Calcium 40 Mg Tablet) 40 mg PO QHS [facility] Last Admin: 04/28/20 21:30 Dose: 40 mg Documented by: Bupropion HCl (Bupropion (Xl) 300 Mg Tablet.Xl) 300 mg PO DAILY [facility] Last Admin: 04/28/20 09:06 Dose: 300 mg Documented by: Cyclobenzaprine HCl (Cyclobenzaprine Hcl 10 Mg Tablet) 10 mg PO QHS [facility] Last Admin: 04/28/20 21:31 Dose: 10 mg Documented by: Dexamethasone (Dexamethasone 4 Mg Tablet) 6 mg PO DAILY [facility] Stop: 05/04/20 10:01 Furosemide (Furosemide 40 Mg/4 Ml Vial) 40 mg IV BID@1000,1800 [facility] Sodium Chloride () 250 mls @ 15 mls/hr IV .[id number] PRN PRN Reason: Saline Flush Sodium Chloride () 250 mls @ 15 mls/hr IV .[id number] PRN PRN Reason: Additional IVPB Infusion Remdesivir 100 mg/ Sodium (Chloride) 250 mls @ 125 mls/hr IV DAILY@2200 [facility] Stop: 04/29/20 23:59 Last Infusion: 04/28/20 23:31 Dose: Infused Documented by: Cisatracurium Besylate 100 mg/ (Sodium Chloride) 250 mls @ 50.16 mls/hr CONT INF .Q5H [facility]; Protocol Fentanyl Citrate 1,000 mcg/ (Sodium Chloride) 100 mls @ 5 mls/hr CONT INF .Q20H [facility]; Protocol Cefepime HCl 2 gm/ Sodium (Chloride) 100 mls @ 200 mls/hr IV Q8 [facility] Losartan Potassium (Losartan Potassium 100 Mg Tablet) 100 mg PO DAILY [facility] Last Admin: 04/28/20 09:06 Dose: 100 mg Documented by: Metoprolol Tartrate (Metoprolol Tartrate 50 Mg Tablet) 50 mg PO BID [facility] Last Admin: 04/28/20 21:30 Dose: 50 mg Documented by: Miscellaneous Information (Inhaler, Assist Devices 1 Each Spacer) 1 each INHALATION PRN PRN PRN Reason: WITH ALBUTEROL MDI Last Admin: 04/27/20 16:41 Dose: 1 each Documented by: Ondansetron HCl (Ondansetron 4 Mg/2 Ml Vial) 4 mg IV Q8H PRN PRN PRN Reason: NAUSEA/VOMITING Pantoprazole Sodium (Pantoprazole Sodium 40 Mg Tablet) 40 mg PO DAILY [facility] Last Admin: 04/28/20 09:06 Dose: 40 mg Documented by: Senna/Docusate Sodium (Senna/Docusate Sodium 1 Tablet) 2 tablet PO BID PRN PRN PRN Reason: Constipation Sodium Chloride (0.9% Saline Lock 10 Ml Syringe) 10 - 40 ml IV UD PRN PRN Reason: SALINE FLUSH Last Admin: 04/29/20 03:34 Dose: 10 ml Documented by: Tramadol HCl (Tramadol 50 Mg Tablet) 50 mg PO Q6H PRN PRN PRN Reason: Pain 1-5 Last Admin: 04/28/20 22:17 Dose: 50 mg Documented by: Medical Necessity - Tobacco Use Smoking Status: Never smoker Route of nutrition/ use of supplements: [] Nutritional Intake: [] IV Site: [] Lares Catheter: [] - Assessment/Plan Antibiotics: [] Assessment/Plan: [] Active and Suspected Problems Acute respiratory failure with hypoxia (Acute) COVID-19 (Acute) covid with hypoxia - on dex, remdesivir, eliquis. Fever resolved. Sx started around 04/14. Intubated this AM 04/29, sputum cx being sent, starting empiric cefepime while cx pending. Will follow, d/w Dr. Zaman
[2020-04-29 11:21] LABS: Base Excess 1 mmol/L (-2 to +2); Bicarbonate 28.9 mmol/L (22-26); Blood Gas Specimen Type ART; FI02 100; Mode AC; O2 Delivery Device ET Tube; PEEP 17; PO2 73 mmHG (75-100); RR 14; SITE R Radial; SO2 91 % (95-99); Total Carbon Dioxide 31 mmol/L; Vt 500; pCO2 68.6 mmHg (35-45); pH 7.23 (7.35-7.45)
--- NOTE | 2020-04-29 11:51 | CPS ---
CRITICAL CO2 VALUE OF 68.6, DR TREVINO AWARE.
--- NOTE | 2020-04-29 12:00 | NURSING ---
Patient being intubated, Dr. Zaman at bedside. Versed 4mg IV given at 0809 Etomidate 20mg IV given at 0810 Patient being bagged by RT, first attempt of intubation unsuccessful as patient is agitated. 0811 Succinylcholine 100mg given at 0814 per MD order Intubation successful at 0815 with positive color change and b/l breath sounds heard. Patient became very agitated again, despite propofol and fentanyl infusing, succinylcholine 100mg IV given at 0821 per MD order. RT noted sounds coming from ETT that suggests possible impaired balloon function. Dr. Zaman notified, and came to bedside. Patient still very agitated, succinylcholine 100mg IV given at 0900 per MD order ETT became dislodged as Dr. Zaman was at bedside, patient reintubated at 0937. Positive color change and b/l breath sounds heard. Patient agitated, despite sedation medication. Succinylcholine 100mg IV given at 0939 per MD order. Nimbex gtt started at 0945. Vitals remained stable throughout intubations.
[2020-04-29] MEDS: Propofol 10MG/Ml 1,000 MG/100 ML Bottle 20.1 MG CONT INF ×2 (13:01→17:36)
[2020-04-29 13:05] LABS: CPK Total, Creatine Kinase 184 U/L (39-308); Triglycerides 159 mg/dL
[2020-04-29] MEDS: Metoprolol Tartrate 50 MG Tablet GT ×2 (13:25→22:11)
[2020-04-29] MEDS: Losartan Potassium 100 MG Tablet GT (13:26)
[2020-04-29] MEDS: dexAMETHasone 4 MG Tablet 6 MG GT (13:26)
[2020-04-29] MEDS: APIXABAN 5 MG TABLET GT ×2 (13:26→22:11)
[2020-04-29] MEDS: Aspirin 81 MG TAB.CHEW GT (13:26)
--- NOTE | 2020-04-29 14:30 | PN_ITS ---
Patient Problems: Active and Suspected Problems Acute respiratory failure with hypoxia (Acute) COVID-19 (Acute) Subjective: Patient was seen and examined today, early this morning he underwent intubation due to progressive hypoxic respiratory failure. At the time of my examination, patient is sedated and on the ventilator. - Physical Exam Vitals/I&O's: Vital Signs Temp Pulse Resp BP Pulse Ox 98.9 F 93 14 167/71 H 91 04/29/20 06:08 04/29/20 13:25 04/29/20 10:33 04/29/20 13:25 04/29/20 11:31 Oxygen Flow Rate (L/min) 60 Oxygen Delivery Method Bi-pap Weight: 167.2 kg Body Mass Index (BMI) 50.0 Intake and Output for Last 24 Hours 04/27/20 04/28/20 04/29/20 23:59 23:59 23:59 Intake Total 1830 / 1830 1070 / 1470 1277.67 / 1277.67 Output Total 1775 / 1775 2125 / 2125 1000 / 1000 Balance 55 / 55 -1055 / -655 277.67 / 277.67 General: - - Patient is sedated on the ventilator HEENT: Atraumatic, PERRLA, Normocephalic Oral: Moist Mucosa Neck: Supple, No JVD, Trachea Midline, Thyroid Normal Size and Texture Lungs: Clear to auscultation, Normal air movement, No rhonchi, No wheeze, No rales Cardiovascular: Regular rate, Regular Rhythm, Normal S1, Normal S2, No murmurs, PMI Normal, No rub noted Abdomen: Bowel Sounds Present, Soft, Non Tender, Non-Distended, Obese Extremities: No clubbing, No cyanosis, No edema, Capillary Refill Less than 3 Seconds Skin: No rashes, No breakdown Musculoskeletal: No Tenderness to Palpation of Joints or Extremities Neurological: - - Patient is sedated and on the ventilator Psych/Mental Status: - - Patient is sedated and on the ventilator Microbiology Past 72 Hours 04/29/20 10:00 Mucosa - Nasopharyngeal Respiratory Panel (PCR) - Final 04/29/20 10:00 Sputum, Induced/Lukens Gram Stain - Final 04/26/20 00:40 Blood Culture (Wb) - Anticubital Left Blood Culture - Preliminary No growth in 48 hours. 12/25/20 21:13 Blood Culture (Wb) - Right Forearm Blood Culture - Preliminary No growth in 48 hours. Laboratory Results 04/29/20 03:23: Specimen Type ART, Sample Site R Radial, pH 7.44, Bicarbonate Actual 24.7, Total CO2 26, Base Excess 1, O2 Saturation 91 L, O2 % 100, ABG pCO2 36.5, ABG pO2 58 L, Philip Test Positive, Respiration Rate 12, O2 Delivery Device BiPAP, Tidal Volume 450, POC PEEP 10 04/29/20 05:40: Sodium 137, Potassium 4.4, Chloride 100, Carbon Dioxide 29.0, Anion Gap 8, BUN 48 H, Creatinine 1.39 H, Estim Creat Clear Calc 55.83, Est GFR (MDRD) Af Amer 65, Est GFR (MDRD) Non-Af 54 L, BUN/Creatinine Ratio 34.5 H, Glucose 78, Calcium 8.7, Total Bilirubin 0.80, AST 53 H, ALT 36, Alkaline Phosphatase 68, Total Protein 7.0, Albumin 3.0 L, Globulin 4.0, Albumin/Globulin Ratio 0.8 L 04/29/20 05:40: WBC 9.8, RBC 5.70, Hgb 15.1, Hct 49.0, MCV 86.0, MCH 26.5 L, MCHC 30.8 L, RDW Std Deviation 47.5 H, RDW Coeff of Citlaly 15.2 H, Plt Count 263, MPV 10.3, Immature Gran % (Auto) 1.000 H, Neut % (Auto) 83.7 H, Lymph % (Auto) 9.9 L, [place] % (Auto) 5.2, Eos % (Auto) 0.1, Baso % (Auto) 0.1, Absolute Neuts (auto) 8.2 H, Absolute Lymphs (auto) 0.97, Nucleated RBC % 0 04/29/20 05:40: Troponin I < 0.015 04/29/20 05:40: B-Natriuretic Peptide 20.9 04/29/20 05:40: Total Creatine Kinase 184, Triglycerides 159 04/29/20 11:13: Specimen Type ART, Sample Site R Radial, pH 7.23 L, Bicarbonate Actual 28.9 H, Total CO2 31, Base Excess 1, O2 Saturation 91 L, O2 % 100, ABG pCO2 68.6 H*, ABG pO2 73 L, Respiration Rate 14, O2 Delivery Device ET Tube, Vent Mode AC, Tidal Volume 500, POC PEEP 17 Current Medications Acetaminophen (Acetaminophen 650 Mg/20 Ml Udc) 650 mg GT Q6H PRN PRN PRN Reason: Pain Score 1-10/Temp > 100.7 F Albuterol Sulfate (Albuterol Sulfate 18 Gm Inhaler (200 Puffs)) 2 puff IH Q4H PRN PRN PRN Reason: Shortness of breath, wheezing Last Admin: 04/27/20 01:30 Dose: 2 puff Documented by: Albuterol/Ipratropium (Ipratropium/Albuterol Sulfate 3 Ml Ampul.Neb) 3 ml INHALATION Q6HWA.RT [facility] Last Admin: 04/29/20 13:40 Dose: 3 ml Documented by: Apixaban (Apixaban 5 Mg Tablet) 5 mg GT BID [facility] Last Admin: 04/29/20 13:26 Dose: 5 mg Documented by: Aspirin (Aspirin 81 Mg Tab.Chew) 81 mg GT DAILY [facility] Last Admin: 04/29/20 13:26 Dose: 81 mg Documented by: Atorvastatin Calcium (Atorvastatin Calcium 40 Mg Tablet) 40 mg GT QHS [facility] Bupropion HCl (Bupropion (Xl) 300 Mg Tablet.Xl) 300 mg PO DAILY [facility] Last Admin: 04/29/20 12:23 Dose: Not Given Documented by: Cyclobenzaprine HCl (Cyclobenzaprine Hcl 10 Mg Tablet) 10 mg GT QHS [facility] Dexamethasone (Dexamethasone 4 Mg Tablet) 6 mg GT DAILY [facility] Stop: 05/05/20 10:01 Last Admin: 04/29/20 13:26 Dose: 6 mg Documented by: Furosemide (Furosemide 40 Mg/4 Ml Vial) 40 mg IV Q8 [facility] Sodium Chloride () 250 mls @ 15 mls/hr IV .[id number] PRN PRN Reason: Saline Flush Last Admin: 04/29/20 13:04 Dose: 15 mls/hr Documented by: Sodium Chloride () 250 mls @ 15 mls/hr IV .[id number] PRN PRN Reason: Additional IVPB Infusion Remdesivir 100 mg/ Sodium (Chloride) 250 mls @ 125 mls/hr IV DAILY@2200 [facility] Stop: 04/29/20 23:59 Last Infusion: 12/28/20 23:31 Dose: Infused Documented by: Cisatracurium Besylate 100 mg/ (Sodium Chloride) 250 mls @ 50.16 mls/hr CONT INF .Q5H [facility]; Protocol Last Admin: 04/29/20 14:17 Dose: 2 mcg/kg/min, 50.2 mls/hr Documented by: Fentanyl Citrate 1,000 mcg/ (Sodium Chloride) 100 mls @ 5 mls/hr CONT INF .Q20H [facility]; Protocol Last Titration: 04/29/20 14:00 Dose: 150 mcg/hr, 15 mls/hr Documented by: Cefepime HCl 2 gm/ Sodium (Chloride) 100 mls @ 200 mls/hr IV Q8 [facility] Last Infusion: 04/29/20 13:02 Dose: Infused Documented by: Propofol (Diprivan) 1,000 mg in 100 mls @ 10.032 mls/hr CONT INF .Q9H59M [facility]; Protocol Last Titration: 04/29/20 14:00 Dose: 20 mcg/kg/min, 20.1 mls/hr Documented by: Vancomycin IV Pharmacy to Dose (1 ea/ Sodium Chloride) 500 mls @ 250 mls/hr IV X1 PRN; Protocol PRN Reason: Rx to Dose Vancomycin HCl 2,000 mg/ (Sodium Chloride) 540 mls @ 250 mls/hr IV X1 ONE Stop: 04/29/20 16:09 Vancomycin HCl 2,000 mg/ (Sodium Chloride) 540 mls @ 250 mls/hr IV Q12H [facility] Losartan Potassium (Losartan Potassium 100 Mg Tablet) 100 mg GT DAILY [facility] Last Admin: 04/29/20 13:26 Dose: 100 mg Documented by: Metoprolol Tartrate (Metoprolol Tartrate 50 Mg Tablet) 50 mg GT BID [facility] Last Admin: 04/29/20 13:25 Dose: 50 mg Documented by: Miscellaneous Information (Inhaler, Assist Devices 1 Each Spacer) 1 each INHALATION PRN PRN PRN Reason: WITH ALBUTEROL MDI Last Admin: 04/27/20 16:41 Dose: 1 each Documented by: Ondansetron HCl (Ondansetron 4 Mg/2 Ml Vial) 4 mg IV Q8H PRN PRN PRN Reason: NAUSEA/VOMITING Pantoprazole Sodium (Pantoprazole Sodium 40 Mg Tablet) 40 mg PO DAILY [facility] Last Admin: 04/29/20 12:23 Dose: Not Given Documented by: Senna/Docusate Sodium (Senna/Docusate Sodium 1 Tablet) 2 tablet GT BID PRN PRN PRN Reason: Constipation Sodium Chloride (0.9% Saline Lock 10 Ml Syringe) 10 - 40 ml IV UD PRN PRN Reason: SALINE FLUSH Last Admin: 04/29/20 03:34 Dose: 10 ml Documented by: Tramadol HCl (Tramadol 50 Mg Tablet) 50 mg GT Q6H PRN PRN PRN Reason: Pain 1-5 Medical Necessity - Tobacco Use Smoking Status: Never smoker Assessment/Plan All Active Problems Acute respiratory failure with hypoxia (Acute) COVID-19 (Acute) #1 COVID-19 pneumonia-patient is being given remdesivir and dexamethasone, patient is now on the ventilator #2 acute hypoxic respiratory failure secondary to #1-prognosis is guarded at this time, patient is on IV antibiotics empirically #3 coronary artery disease #4 essential hypertension #5 paroxysmal atrial fibrillation-patient is on Eliquis chronically #6 morbid obesity Inpatient E&M: [id number] [facility] L2
--- NOTE | 2020-04-29 15:02 | PCM.RX.CS ---
Consult Pharmacy has been consulted to manage selected antiobiotic: Vancomycin Type of Consult: New start Suspected Infection: Sepsis Labs: Sodium 137 mmol/L (136-145) 04/29/20 05:40 Potassium 4.4 mmol/L (3.5-5.1) 04/29/20 05:40 Chloride 100 mmol/L (98-107) 04/29/20 05:40 Carbon Dioxide 29.0 mmol/L (21.0-32.0) 04/29/20 05:40 Anion Gap 8 (5-15) 04/29/20 05:40 BUN 48 mg/dL (7-18) H 04/29/20 05:40 Creatinine 1.39 mg/dL (0.70-1.30) H 04/29/20 05:40 Est GFR (MDRD) Af Amer 65 mL/min (>60) 04/29/20 05:40 Est GFR (MDRD) Non-Af 54 mL/min (>60) L 04/29/20 05:40 BUN/Creatinine Ratio 34.5 RATIO (10-20) H 04/29/20 05:40 Glucose 78 mg/dL (74-106) 04/29/20 05:40 Microbiology: Microbiology 04/29/20 10:00 Mucosa - Nasopharyngeal Respiratory Panel (PCR) - Final 04/29/20 10:00 Sputum, Induced/Lukens Gram Stain - Final 04/26/20 00:40 Blood Culture (Wb) - Anticubital Left Blood Culture - Preliminary No growth in 48 hours. 04/25/20 21:13 Blood Culture (Wb) - Right Forearm Blood Culture - Preliminary No growth in 48 hours. Weight used for dosin kg Estimated Creatinine Clearance: 81ml/min Goal Trough: 15-20 mcg/mL Pharmacy Plan for Drug Dosing: NEW START IV VANCOMYCIN Consulting Physician: Austyn Indication: sepsis/pneumonia Goal Trough: 15-20 SrCr: 1.39 CrCl: 81.55 (based on adjusted body weight of 113kg) Comments: Vancomcyin Dose: [id number] q12h (,) Pending Level: 05/01/20 at 0130 Pharmacy Service will continue to monitor and adjust dosing as required. Follow-Up Labs: Trough Vancomycin - 05/01/20 at 0130
[2020-04-29 15:52] LABS: Anion Gap 6 (5-15); BUN 52 mg/dL (7-18); BUN/Creat Ratio 32.7 RATIO (10-20); Calcium,Total 8.6 mg/dL (8.5-10.1); Chloride 102 mmol/L (98-107); Creatinine, Serum 1.59 mg/dL (0.70-1.30); EST Glomerular Filtration Rate 46 mL/min (>60); Est Glom Filt Rate - Afr Amer 56 mL/min (>60); Estimated Creatinine Clearance 48.81 ml/min; Glucose 135 mg/dL (74-106); Sodium Level 137 mmol/L (136-145)
[2020-04-29 16:59] LABS: M R Staph aureus DNA By PCR Negative (Negative); Probe Check PASS; Specimen Processing Control PASS
--- NOTE | 2020-04-29 20:13 | NURSING ---
Unable to complete CAM d/t pt. being paralyzed.
[2020-04-29] MEDS: Chlorhexidine 15 ML PO (20:16)
[2020-04-29] MEDS: Atorvastatin Calcium 40 MG Tablet GT (22:11)
[2020-04-30] VITALS (42 sets, daily range): BP systolic 86–185; BP diastolic 38–83; PULSE 71–112; RESP 16; TEMP 37.3–38.2; O2SAT 90–94; BMI 49.0
[2020-04-30] MEDS: Propofol 10MG/Ml 1,000 MG/100 ML Bottle 10 MG CONT INF (00:05)
[2020-04-30] MEDS: TITRATION PARAMETER CHANGE 1 EACH IV ×3 (02:11→08:26)
[2020-04-30] MEDS: Propofol 10MG/Ml 1,000 MG/100 ML Bottle 14.8 MG CONT INF (02:55)
[2020-04-30] MEDS: 0.9% Saline Lock 10 ML Syringe IV (04:43)
[2020-04-30] MEDS: Furosemide 40 MG/4 ML Vial IV (05:01)
[2020-04-30 05:08] LABS: Absolute Lymphocyte Count 0.24 X10^3/uL (0.83-4.51); Absolute Neutrophil Count 10.8 X10^3/uL (2.0-7.7); Basophil# 0.01 X10^3/uL; Basophil% 0.1 % (0-1); Hematocrit 47.1 % (40-54); Hemoglobin 14.4 g/dL (13.0-16.5); Lymphocyte # 0.24 X10^3/ul (4.0); Lymphocyte % 2.1 % (19-41); Mean Corp Hgb Conc 30.6 g/dL (32-36); Mean Corpuscular Hgb 27.1 pg (27.0-32.0); Mean Corpuscular Volume 88.5 fL (80-94); Mean Platelet Vol. 9.7 fl (6.2-12.0); Monocyte# 0.43 X10^3/uL; Monocyte% 3.7 % (0-10); NRBC Flagged by Analyzer 0 % (0-5); Neutrophil # 10.83 X10^3/uL (2.7-7.7); Neutrophil % 93.5 % (47-70); POSITIVE DIFFERENTIAL YES; Platelet Count 259 K/mm3 (150-450); RBC Distribution Width CV 15.5 % (11.6-14.6); RBC Distribution Width SD 50.6 fl (35.1-43.9); Red Blood Count 5.32 M/mm3 (4.6-6.2); White Blood Count 11.6 K/mm3 (4.4-11.0)
[2020-04-30 05:24] LABS: ALB/GLOB Ratio 0.6 RATIO (0.9-2.4); AST(SGOT) 42 U/L (15-37); Alanine Aminotransfer ALT/SGPT 43 U/L (16-61); Albumin, Serum 2.5 g/dL (3.2-5.0); Alkaline Phosphatase 88 U/L (45-117); Anion Gap 5 (5-15); BUN 50 mg/dL (7-18); BUN/Creat Ratio 31.4 RATIO (10-20); Calcium,Total 8.4 mg/dL (8.5-10.1); Chloride 105 mmol/L (98-107); Creatinine, Serum 1.59 mg/dL (0.70-1.30); Differential Indicated SCAN CRITERIA MET; EST Glomerular Filtration Rate 46 mL/min (>60); Est Glom Filt Rate - Afr Amer 56 mL/min (>60); Estimated Creatinine Clearance 48.81 ml/min; Globulin 4.5 g/dL (2.2-4.2); Glucose 135 mg/dL (74-106); Potassium 4.4 mmol/L (3.5-5.1); Sodium Level 139 mmol/L (136-145)
--- NOTE | 2020-04-30 05:35 | PCM.PN.INT ---
Subjective: The patient was seen and examined at the bedside this morning. Events from the last 24 hours have been reviewed. The patient is currently afebrile, hemodynamically stable and maintaining appropriate oxygen saturations on assist control mode of mechanical ventilation with an FiO2 requirement of 80% and PEEP of 15. Creatinine remains relatively stable this morning at 1.59. Liver function remains normal. The patient is currently documented to be overall net +2.3 L for the hospital admission. He has completed his treatment course of remdesivir and remains on Decadron. The patient remains heavily sedated on propofol and fentanyl, and is currently pharmacologically paralyzed with cis atracurium. The patient's BIS values have been averaging mid 40's. Objective: The patient's most recent lab work, culture data and imaging studies have all been personally reviewed. Surface echocardiogram from October 2019 revealed moderate concentric LVH with an ejection fraction of 75%. Blood cultures are pending. Respiratory viral panel is pending. Sputum culture is pending. General: - - Intubated, sedated and mechanically ventilated. HEENT: Atraumatic, PERRLA, Normocephalic Oral: No Gingival or Mucosal Lesions/ Ulcerations, - - Stable endotracheal and OG tubes. Neck: Supple, No Nodes, Trachea Midline Lungs: No rhonchi, No wheeze, No rales, Diminished Cardiovascular: Regular rate, Regular Rhythm, Normal S1, Normal S2, No murmurs Abdomen: Bowel Sounds Present, Soft, Non Tender, Obese Extremities: No clubbing, No cyanosis, No edema, Cool, - - Mottled lower extremities Skin: No breakdown Musculoskeletal: No Muscle Wasting Lymphatic: No Cervical, Supraclavicular, or Inguinal Adenopathy Neurological: - - Unable to assess neurological status given need for pharmacologic paralysis. Psych/Mental Status: Flat Affect Vital Signs Temp Pulse Resp BP Pulse Ox 99.5 F H 96 16 129/45 H 93 04/30/20 05:00 04/30/20 05:00 04/30/20 05:00 04/30/20 05:00 04/30/20 05:00 Oxygen Flow Rate (L/min) 60 Oxygen Delivery Method Mechanical Ventilator Weight: 361 lb 12.457 oz Body Mass Index (BMI) 50.0 Intake and Output for Last 24 Hours 04/28/20 04/29/20 04/30/20 23:59 23:59 23:59 Intake Total 1070 / 1470 2939.08 / 2994.28 1177.58 / 1177.58 Output Total 2125 / 2125 2360 / 2360 400 / 400 Balance -1055 / -655 579.08 / 634.28 777.58 / 777.58 Labs (Last 48 Hours) 04/26/20 04/28/20 04/29/20 06:42 06:10 03:23 WBC RBC Hgb Hct MCV MCH MCHC RDW Std Deviation RDW Coeff of Citlaly Plt Count MPV Immature Gran % (Auto) Neut % (Auto) Lymph % (Auto) [place] % (Auto) Eos % (Auto) Baso % (Auto) Absolute Neuts (auto) Absolute Lymphs (auto) Nucleated RBC % Diff Path Review Reviewed Specimen Type ART Sample Site R Radial pH 7.44 Bicarbonate Actual 24.7 Total CO2 26 Base Excess 1 O2 Saturation 91 L O2 % 100 ABG pCO2 36.5 ABG pO2 58 L Philip Test Positive Respiration Rate 12 O2 Delivery Device BiPAP Vent Mode Tidal Volume 450 POC PEEP 10 Sodium 135 L Potassium 3.9 Chloride 101 Carbon Dioxide 28.0 Anion Gap 6 BUN 42 H Creatinine 1.37 H Estim Creat Clear Calc 56.64 Est GFR (MDRD) Af Amer 66 Est GFR (MDRD) Non-Af 55 L BUN/Creatinine Ratio 30.7 H Glucose 88 Calcium 8.5 Total Bilirubin 0.50 AST 52 H ALT 32 Alkaline Phosphatase 57 Total Creatine Kinase Troponin I B-Natriuretic Peptide Total Protein 6.9 Albumin 2.7 L Globulin 4.2 Albumin/Globulin Ratio 0.6 L Triglycerides MRSA (PCR) 04/29/20 04/29/20 04/29/20 05:40 05:40 05:40 WBC 9.8 RBC 5.70 Hgb 15.1 Hct 49.0 MCV 86.0 MCH 26.5 L MCHC 30.8 L RDW Std Deviation 47.5 H RDW Coeff of Citlaly 15.2 H Plt Count 263 MPV 10.3 Immature Gran % (Auto) 1.000 H Neut % (Auto) 83.7 H Lymph % (Auto) 9.9 L [place] % (Auto) 5.2 Eos % (Auto) 0.1 Baso % (Auto) 0.1 Absolute Neuts (auto) 8.2 H Absolute Lymphs (auto) 0.97 Nucleated RBC % 0 Diff Path Review Specimen Type Sample Site pH Bicarbonate Actual Total CO2 Base Excess O2 Saturation O2 % ABG pCO2 ABG pO2 Philip Test Respiration Rate O2 Delivery Device Vent Mode Tidal Volume POC PEEP Sodium 137 Potassium 4.4 Chloride 100 Carbon Dioxide 29.0 Anion Gap 8 BUN 48 H Creatinine 1.39 H Estim Creat Clear Calc 55.83 Est GFR (MDRD) Af Amer 65 Est GFR (MDRD) Non-Af 54 L BUN/Creatinine Ratio 34.5 H Glucose 78 Calcium 8.7 Total Bilirubin 0.80 AST 53 H ALT 36 Alkaline Phosphatase 68 Total Creatine Kinase Troponin I < 0.015 B-Natriuretic Peptide Total Protein 7.0 Albumin 3.0 L Globulin 4.0 Albumin/Globulin Ratio 0.8 L Triglycerides MRSA (PCR) 04/29/20 04/29/20 04/29/20 05:40 05:40 11:13 WBC RBC Hgb Hct MCV MCH MCHC RDW Std Deviation RDW Coeff of Citlaly Plt Count MPV Immature Gran % (Auto) Neut % (Auto) Lymph % (Auto) [place] % (Auto) Eos % (Auto) Baso % (Auto) Absolute Neuts (auto) Absolute Lymphs (auto) Nucleated RBC % Diff Path Review Specimen Type ART Sample Site R Radial pH 7.23 L Bicarbonate Actual 28.9 H Total CO2 31 Base Excess 1 O2 Saturation 91 L O2 % 100 ABG pCO2 68.6 H* ABG pO2 73 L Philip Test Respiration Rate 14 O2 Delivery Device ET Tube Vent Mode AC Tidal Volume 500 POC PEEP 17 Sodium Potassium Chloride Carbon Dioxide Anion Gap BUN Creatinine Estim Creat Clear Calc Est GFR (MDRD) Af Amer Est GFR (MDRD) Non-Af BUN/Creatinine Ratio Glucose Calcium Total Bilirubin AST ALT Alkaline Phosphatase Total Creatine Kinase 184 Troponin I B-Natriuretic Peptide 20.9 Total Protein Albumin Globulin Albumin/Globulin Ratio Triglycerides 159 MRSA (PCR) 04/29/20 04/29/20 04/30/20 15:10 15:10 04:40 WBC 11.6 H RBC 5.32 Hgb 14.4 Hct 47.1 MCV 88.5 MCH 27.1 MCHC 30.6 L RDW Std Deviation 50.6 H RDW Coeff of Citlaly 15.5 H Plt Count 259 MPV 9.7 Immature Gran % (Auto) 0.600 Neut % (Auto) 93.5 H Lymph % (Auto) 2.1 L [place] % (Auto) 3.7 Eos % (Auto) 0.0 Baso % (Auto) 0.1 Absolute Neuts (auto) 10.8 H Absolute Lymphs (auto) 0.24 L Nucleated RBC % 0 [address] Review Specimen Type Sample Site pH Bicarbonate Actual Total CO2 Base Excess O2 Saturation O2 % ABG pCO2 ABG pO2 Philip Test Respiration Rate O2 Delivery Device Vent Mode Tidal Volume POC PEEP Sodium 137 Potassium 4.0 Chloride 102 Carbon Dioxide 29.0 Anion Gap 6 BUN 52 H Creatinine 1.59 H Estim Creat Clear Calc 48.81 Est GFR (MDRD) Af Amer 56 L Est GFR (MDRD) Non-Af 46 L BUN/Creatinine Ratio 32.7 H Glucose 135 H Calcium 8.6 Total Bilirubin AST ALT Alkaline Phosphatase Total Creatine Kinase Troponin I B-Natriuretic Peptide Total Protein Albumin Globulin Albumin/Globulin Ratio Triglycerides MRSA (PCR) Negative 04/30/20 04:40 WBC RBC Hgb Hct MCV MCH MCHC RDW Std Deviation RDW Coeff of Citlaly Plt Count MPV Immature Gran % (Auto) Neut % (Auto) Lymph % (Auto) [place] % (Auto) Eos % (Auto) Baso % (Auto) Absolute Neuts (auto) Absolute Lymphs (auto) Nucleated RBC % Diff Path Review Specimen Type Sample Site pH Bicarbonate Actual Total CO2 Base Excess O2 Saturation O2 % ABG pCO2 ABG pO2 Philip Test Respiration Rate O2 Delivery Device Vent Mode Tidal Volume POC PEEP Sodium 139 Potassium 4.4 Chloride 105 Carbon Dioxide 29.0 Anion Gap 5 BUN 50 H Creatinine 1.59 H Estim Creat Clear Calc 48.81 Est GFR (MDRD) Af Amer 56 L Est GFR (MDRD) Non-Af 46 L BUN/Creatinine Ratio 31.4 H Glucose 135 H Calcium 8.4 L Total Bilirubin 0.60 AST 42 H ALT 43 Alkaline Phosphatase 88 Total Creatine Kinase Troponin I B-Natriuretic Peptide Total Protein 7.0 Albumin 2.5 L Globulin 4.5 H Albumin/Globulin Ratio 0.6 L Triglycerides MRSA (PCR) Microbiology 04/29/20 10:00 Mucosa - Nasopharyngeal Respiratory Panel (PCR) - Final 04/29/20 10:00 Sputum, Induced/Lukens Gram Stain - Final 04/26/20 00:40 Blood Culture (Wb) - Anticubital Left Blood Culture - Preliminary No growth in 48 hours. 04/25/20 21:13 Blood Culture (Wb) - Right Forearm Blood Culture - Preliminary No growth in 48 hours. Clinical Impression(s) from Imaging Studies Chest X-Ray 04/25/20 20:54 IMPRESSION: 1. Vascular congestion and interstitial edema, new since the prior study. Electronically Signed: Eduardo Figueroa MD ([facility]) at 21:50 EST , Service support , Chest X-Ray 04/28/20 07:45 IMPRESSION: Stable exam. Vascular congestion with interstitial edema favoring pulmonary edema although pneumonia including viral causes also possible. Electronically Signed: Eduardo Figueroa MD ([facility]) at 8:06 EST , Service support , Chest X-Ray 04/29/20 08:31 IMPRESSION: 1. Suboptimal placement of endotracheal tube with tip terminating at the first rib. Recommend advancing 4-5 cm. 2. Worsening congestion with interstitial edema favoring pulmonary edema although pneumonia including viral causes also possible. Electronically Signed: Eduardo Figueroa MD ([facility]) at 9:39 EST , Service support , Chest X-Ray 04/29/20 08:52 IMPRESSION: 1. Persistent suboptimal placement of endotracheal tube with tip terminating at the first rib. Recommend advancing 4-5 cm. 2. Worsening vascular congestion with interstitial edema favoring pulmonary edema although pneumonia (including viral causes) also possible. Electronically Signed: Eduardo Figueroa MD ([facility]) at 9:41 EST , Service support , Chest X-Ray 04/29/20 09:50 IMPRESSION: 1. Endotracheal tube in satisfactory position with tip 3.5 cm above the yisel 2. Less conspicuous (since earlier today) vascular congestion with interstitial edema favoring pulmonary edema although pneumonia (including viral causes) also possible. Electronically Signed: Eduardo Figueroa MD ([facility]) at 10:20 EST , Service support , Chest X-Ray 04/29/20 10:11 IMPRESSION: 1. Endotracheal tube terminates with tip 2.2 cm above the yisel 2. Similar vascular congestion with interstitial edema favoring pulmonary edema although pneumonia (including viral causes) also possible. Electronically Signed: Eduardo Figueroa MD ([facility]) at 10:35 EST , Service support , Medical Necessity - Tobacco Use Smoking Status: Never smoker Assessment/Plan All Active Problems Acute respiratory failure with hypoxia (Acute) COVID-19 (Acute) RECOMMENDATIONS: 1. Obtain repeat ABG this morning. 2. Continue current sedation regimen and pharmacologic paralysis with cisatracurium. 3. Okay to start tube feeds today from my perspective. 4. Continue empiric antimicrobials, while awaiting finalized sputum culture results. 5. Vancomycin will be discontinued, given negative MRSA screen. 6. Continue aggressive diuresis as tolerated by hemodynamics and renal function. 7. Continue systemic anticoagulation with Eliquis as ordered. 8. Continue remdesivir and Decadron. 9. Continue appropriate GI prophylaxis. IMPRESSIONS: 1. Acute hypoxemic respiratory failure secondary to ARDS due to COVID-19 pneumonia The patient was initially diagnosed 1 week prior to hospital admission. Although attempts were made to utilize high flow oxygen and noninvasive positive pressure ventilatory support, the patient continued to decompensate from a respiratory perspective, requiring transfer to ICU and subsequent intubation on April 29. The patient has gone on to develop fulminant ARDS with high ventilator requirements. The patient will be continued on supportive measures including Decadron and remdesivir. In addition, empiric antimicrobials will be continued, pending results of sputum culture. The patient will be continued on diuretics as tolerated by hemodynamics and renal function. Goal to wean FiO2 and PEEP to maintain oxygen saturations at or above 90%. Cis atracurium will be continued for now in hopes of weaning from pharmacologic paralysis over the next 24 to 48 hours. Tube feeds can be initiated today from my perspective. 2. Obesity/hypertension/hyperlipidemia/paroxysmal atrial fibrillation/coronary artery disease/GERD Complicates care, management, recovery and prognosis. Continue home medications as indicated. TIME: 35 minutes of critical care time, inclusive of procedures, was spent addressing the patient's acute hypoxemic respiratory failure secondary to ARDS due to COVID-19 pneumonia, paroxysmal atrial fibrillation, coronary artery disease, review of all data and collaboration with care team. [id number]) [id number] Critical care first hour
[2020-04-30] MEDS: Ipratropium/Albuterol Sulfate 3 ML AMPUL.NEB INHALATION ×3 (06:52→18:50)
[2020-04-30 07:16] LABS: Base Excess 2 mmol/L (-2 to +2); Bicarbonate 28.6 mmol/L (22-26); Blood Gas Specimen Type ART; FI02 80; Mode AC; O2 Delivery Device ET Tube; PEEP 15; PO2 73 mmHG (75-100); RR 16; SITE R Radial; SO2 92 % (95-99); Total Carbon Dioxide 31 mmol/L; Vt 540; pH 7.28 (7.35-7.45)
[2020-04-30] MEDS: Vital High Protein 1,000 ML 75 ML GT (08:24)
[2020-04-30] MEDS: APIXABAN 5 MG TABLET GT ×2 (08:25→22:06)
[2020-04-30] MEDS: dexAMETHasone 4 MG Tablet 6 MG GT (08:25)
[2020-04-30] MEDS: Metoprolol Tartrate 50 MG Tablet GT ×2 (08:26→22:01)
[2020-04-30] MEDS: Aspirin 81 MG TAB.CHEW GT (08:26)
[2020-04-30] MEDS: Chlorhexidine 15 ML PO ×2 (08:26→20:11)
[2020-04-30] MEDS: buPROPion 100 MG Tablet 150 MG PO ×2 (10:11→22:00)
[2020-04-30] MEDS: Acetaminophen 650 MG/20 ML UDC GT (10:14)
--- NOTE | 2020-04-30 10:14 | NT.THERAPY_ITS ---
Nutrition Therapy Report - History Current diet / nutrition support order:: NPO - Anthropometric Measurements Height:: 6 ft Weight:: 164.1 kg Body Mass Index (BMI):: 49.0 - Relevant Labs Relevant Labs:: WBC 11.6 K/mm3 (4.4-11.0) H 04/30/20 04:40 MCH 26.5 pg (27.0-32.0) L 04/29/20 05:40 MCHC 30.6 g/dL (32-36) L 04/30/20 04:40 RDW Std Deviation 50.6 fl (35.1-43.9) H 04/30/20 04:40 RDW Coeff of Citlaly 15.5 % (11.6-14.6) H 04/30/20 04:40 Immature Gran % (Auto) 1.000 % (0.0-0.9) H 04/29/20 05:40 Neut % (Auto) 93.5 % (47-70) H 04/30/20 04:40 Lymph % (Auto) 2.1 % (19-41) L 04/30/20 04:40 Absolute Neuts (auto) 10.8 X10^3/uL (2.0-7.7) H 04/30/20 04:40 Absolute Lymphs (auto) 0.24 X10^3/uL (0.83-4.51) L 04/30/20 04:40 Fibrinogen 667 mg/dl (203-444) H 04/25/20 21:13 Sodium 135 mmol/L (136-145) L 04/28/20 06:10 BUN 50 mg/dL (7-18) H 04/30/20 04:40 Creatinine 1.59 mg/dL (0.70-1.30) H 04/30/20 04:40 Est GFR (MDRD) Af Amer 56 mL/min (>60) L 04/30/20 04:40 Est GFR (MDRD) Non-Af 46 mL/min (>60) L 04/30/20 04:40 BUN/Creatinine Ratio 31.4 RATIO (10-20) H 04/30/20 04:40 Glucose 135 mg/dL (74-106) H 04/30/20 04:40 Calcium 8.4 mg/dL (8.5-10.1) L 04/30/20 04:40 AST 42 U/L (15-37) H 04/30/20 04:40 Total Creatine Kinase 556 U/L (39-308) H 04/25/20 21:13 Albumin 2.5 g/dL (3.2-5.0) L 04/30/20 04:40 Globulin 4.5 g/dL (2.2-4.2) H 04/30/20 04:40 Albumin/Globulin Ratio 0.6 RATIO (0.9-2.4) L 04/30/20 04:40 Procalcitonin 0.13 ng/mL (0.00-0.09) H 04/25/20 21:13 - Assessment Food / Nutrition-Related History:: Discussed in ICU rounds. Pt is now intubated. Per initial RDN assessment, pt w/ good PO intake prior to intubation. No malnutrition identified upon admission. Wt decrease of 3.1 kg since last review, on lasix. - Nutrition Diagnosis Problem / Etiology / Signs & Symptoms (PES):: Pt w/ inadequate oral intake r/t resp. failure as evidenced by intubated status. Evidence of Malnutrition Exists:: No - Nutrition Intervention Nutrition Prescription:: Will use ASPEN guidelines for morbidly obese, critic ally ill pts to re-estimate nutritional needs. Will use 2.0-2.5 g protein/kg IBW (80kg) and 22-25 calories/kg IBW (80kg): 160-200 g protein, 9021-6991 calories/day. - Food / Nutrient Delivery Interventions Summary of nutrition intervention:: Enteral nutrition support while intubated. Nutrition support ordered as / adjusted to:: Vital High Protein at goal rate of 75mL/hour w/ 75mL H2O flush every 4 hours to provide 1800 calories, 157 g protein, and 1804mL total fluid/day. Would start at 25mL/hour and increase by 15mL every 12 hours as pt tolerates until goal rate achieved. - MNT Monitoring Further MNT monitoring and evaluation required?: Yes MNT Follow-up in:: 1-2 days
[2020-04-30] MEDS: Propofol 10MG/Ml 1,000 MG/100 ML Bottle 9.8 MG CONT INF ×3 (10:16→23:38)
--- NOTE | 2020-04-30 11:16 | PN_ITS ---
Patient Problems: Active and Suspected Problems Acute respiratory failure with hypoxia (Acute) COVID-19 (Acute) Subjective: Patient was seen and examined today in the ICU, he remains sedated and on the ventilator at this time for his oxygen requirement appears to be lower than it was yesterday. Objective: General: - - Patient is sedated on the ventilator HEENT: Atraumatic, PERRLA, Normocephalic Oral: Moist Mucosa Neck: Supple, No JVD, Trachea Midline, Thyroid Normal Size and Texture Lungs: Clear to auscultation, Normal air movement, No rhonchi, No wheeze, No rales Cardiovascular: Regular rate, Regular Rhythm, Normal S1, Normal S2, No murmurs, PMI Normal, No rub noted Abdomen: Bowel Sounds Present, Soft, Non Tender, Non-Distended, Obese Extremities: No clubbing, No cyanosis, No edema, Capillary Refill Less than 3 Seconds Skin: No rashes, No breakdown Musculoskeletal: No Tenderness to Palpation of Joints or Extremities Neurological: - - Patient is sedated and on the ventilator Psych/Mental Status: - - Patient is sedated and on the ventilator - Physical Exam Vitals/I&O's: Vital Signs Temp Pulse Resp BP Pulse Ox 100.8 F H 86 16 102/46 L 93 04/30/20 10:00 04/30/20 11:00 04/30/20 11:00 04/30/20 11:00 04/30/20 11:00 Oxygen Flow Rate (L/min) 60 Oxygen Delivery Method Mechanical Ventilator Weight: 164.1 kg Body Mass Index (BMI) 49.0 Intake and Output for Last 24 Hours 04/28/20 04/29/20 04/30/20 23:59 23:59 23:59 Intake Total 1070 / 1470 2939.08 / 2994.28 1753.39 / 1753.39 Output Total 2125 / 2125 2360 / 2360 1000 / 1000 Balance -1055 / -655 579.08 / 634.28 753.39 / 753.39 Microbiology Past 72 Hours 04/29/20 10:00 Sputum, Induced/Lukens Gram Stain - Final 04/29/20 10:00 Sputum, Induced/Lukens Respiratory Culture - Preliminary Staphylococcus aureus 04/29/20 10:00 Mucosa - Nasopharyngeal Respiratory Panel (PCR) - Final 04/26/20 00:40 Blood Culture (Wb) - Anticubital Left Blood Culture - Preliminary No growth in 48 hours. 04/25/20 21:13 Blood Culture (Wb) - Right Forearm Blood Culture - Preliminary No growth in 48 hours. Laboratory Results 04/29/20 05:40: Total Creatine Kinase 184, Triglycerides 159 04/29/20 11:13: Specimen Type ART, Sample Site R Radial, pH 7.23 L, Bicarbonate Actual 28.9 H, Total CO2 31, Base Excess 1, O2 Saturation 91 L, O2 % 100, ABG pCO2 68.6 H*, ABG pO2 73 L, Respiration Rate 14, O2 Delivery Device ET Tube, Vent Mode AC, Tidal Volume 500, POC PEEP 17 04/29/20 15:10: Sodium 137, Potassium 4.0, Chloride 102, Carbon Dioxide 29.0, Anion Gap 6, BUN 52 H, Creatinine 1.59 H, Estim Creat Clear Calc 48.81, Est GFR (MDRD) Af Amer 56 L, Est GFR (MDRD) Non-Af 46 L, BUN/Creatinine Ratio 32.7 H, Glucose 135 H, Calcium 8.6 04/29/20 15:10: MRSA (PCR) Negative 04/30/20 04:40: WBC 11.6 H, RBC 5.32, Hgb 14.4, Hct 47.1, MCV 88.5, MCH 27.1, MCHC 30.6 L, RDW Std Deviation 50.6 H, RDW Coeff of Citlaly 15.5 H, Plt Count 259, MPV 9.7, Immature Gran % (Auto) 0.600, Neut % (Auto) 93.5 H, Lymph % (Auto) 2.1 L, [place] % (Auto) 3.7, Eos % (Auto) 0.0, Baso % (Auto) 0.1, Absolute Neuts (auto) 10.8 H, Absolute Lymphs (auto) 0.24 L, Nucleated RBC % 0 04/30/20 04:40: Sodium 139, Potassium 4.4, Chloride 105, Carbon Dioxide 29.0, Anion Gap 5, BUN 50 H, Creatinine 1.59 H, Estim Creat Clear Calc 48.81, Est GFR (MDRD) Af Amer 56 L, Est GFR (MDRD) Non-Af 46 L, BUN/Creatinine Ratio 31.4 H, Glucose 135 H, Calcium 8.4 L, Total Bilirubin 0.60, AST 42 H, ALT 43, Alkaline Phosphatase 88, Total Protein 7.0, Albumin 2.5 L, Globulin 4.5 H, Albumin/Globulin Ratio 0.6 L 04/30/20 07:08: Specimen Type ART, Sample Site R Radial, pH 7.28 L, Bicarbonate Actual 28.6 H, Total CO2 31, Base Excess 2, O2 Saturation 92 L, O2 % 80, ABG pCO2 61.0 H, ABG pO2 73 L, Respiration Rate 16, O2 Delivery Device ET Tube, Vent Mode AC, Tidal Volume 540, POC PEEP 15 Current Medications Acetaminophen (Acetaminophen 650 Mg/20 Ml Udc) 650 mg GT Q6H PRN PRN PRN Reason: Pain Score 1-10/Temp > 100.7 F Last Admin: 04/30/20 10:14 Dose: 650 mg Documented by: Albuterol Sulfate (Albuterol Sulfate 18 Gm Inhaler (200 Puffs)) 2 puff IH Q4H PRN PRN PRN Reason: Shortness of breath, wheezing Last Admin: 04/27/20 01:30 Dose: 2 puff Documented by: Albuterol/Ipratropium (Ipratropium/Albuterol Sulfate 3 Ml Ampul.Neb) 3 ml INHALATION Q6HWA.RT [facility] Last Admin: 04/30/20 06:52 Dose: 3 ml Documented by: Apixaban (Apixaban 5 Mg Tablet) 5 mg GT BID [facility] Last Admin: 04/30/20 08:25 Dose: 5 mg Documented by: Aspirin (Aspirin 81 Mg Tab.Chew) 81 mg GT DAILY [facility] Last Admin: 04/30/20 08:26 Dose: 81 mg Documented by: Atorvastatin Calcium (Atorvastatin Calcium 40 Mg Tablet) 40 mg GT QHS [facility] Last Admin: 04/29/20 22:11 Dose: 40 mg Documented by: Bupropion HCl (Bupropion 100 Mg Tablet) 150 mg PO BID [facility] Last Admin: 04/30/20 10:11 Dose: 150 mg Documented by: Chlorhexidine Gluconate (Chlorhexidine 15 Ml) 15 ml PO BID [facility] Last Admin: 04/30/20 08:26 Dose: 15 ml Documented by: Dexamethasone (Dexamethasone 4 Mg Tablet) 6 mg GT DAILY [facility] Stop: 01/04/21 10:01 Last Admin: 04/30/20 08:25 Dose: 6 mg Documented by: Furosemide (Furosemide 40 Mg/4 Ml Vial) 40 mg IV Q8 [facility] Last Admin: 04/30/20 05:01 Dose: 40 mg Documented by: Sodium Chloride () 250 mls @ 15 mls/hr IV .[id number] PRN PRN Reason: Saline Flush Last Infusion: 04/30/20 05:44 Dose: 0 mls/hr Documented by: Sodium Chloride () 250 mls @ 15 mls/hr IV .[id number] PRN PRN Reason: Additional IVPB Infusion Cisatracurium Besylate 100 mg/ (Sodium Chloride) 250 mls @ 49.23 mls/hr CONT INF .Q5H5M [facility]; Protocol Last Titration: 04/30/20 11:00 Dose: 1.5 mcg/kg/min, 36.9 mls/hr Documented by: Fentanyl Citrate 1,000 mcg/ (Sodium Chloride) 100 mls @ 5 mls/hr CONT INF .Q20H [facility]; Protocol Last Titration: 04/30/20 11:09 Dose: 75 mcg/hr, 7.5 mls/hr Documented by: Cefepime HCl 2 gm/ Sodium (Chloride) 100 mls @ 200 mls/hr IV Q8 [facility] Last Infusion: 04/30/20 06:14 Dose: Infused Documented by: Propofol (Diprivan) 1,000 mg in 100 mls @ 9.846 mls/hr CONT INF .[id number] [facility]; Protocol Last Titration: 04/30/20 11:00 Dose: 10 mcg/kg/min, 9.8 mls/hr Documented by: Pantoprazole Sodium 40 mg/ (Sodium Chloride) 110 mls @ 330 mls/hr IV Q12 [facility] Last Infusion: 04/30/20 10:23 Dose: Infused Documented by: Enteral Nutritional Formula (Vital High Protein) 1,000 mls @ 75 mls/hr GT .[id number] [facility] Last Admin: 04/30/20 08:24 Dose: 75 mls/hr Documented by: Insulin Human Lispro (Insulin Lispro 100 Unit/Ml Insuln.Pen) 0 unit SC Q6 [facility]; Protocol Losartan Potassium (Losartan Potassium 100 Mg Tablet) 100 mg GT DAILY [facility] Last Admin: 12/29/20 13:26 Dose: 100 mg Documented by: Metoprolol Tartrate (Metoprolol Tartrate 50 Mg Tablet) 50 mg GT BID [facility] Last Admin: 04/30/20 08:26 Dose: 50 mg Documented by: Miscellaneous Information (Inhaler, Assist Devices 1 Each Spacer) 1 each IN HALATION PRN PRN PRN Reason: WITH ALBUTEROL MDI Last Admin: 04/27/20 16:41 Dose: 1 each Documented by: Ondansetron HCl (Ondansetron 4 Mg/2 Ml Vial) 4 mg IV Q8H PRN PRN PRN Reason: NAUSEA/VOMITING Senna/Docusate Sodium (Senna/Docusate Sodium 1 Tablet) 2 tablet GT BID PRN PRN PRN Reason: Constipation Sodium Chloride (0.9% Saline Lock 10 Ml Syringe) 10 - 40 ml IV UD PRN PRN Reason: SALINE FLUSH Last Admin: 04/30/20 04:43 Dose: 40 ml Documented by: Medical Necessity - Tobacco Use Smoking Status: Never smoker Assessment/Plan All Active Problems Acute respiratory failure with hypoxia (Acute) COVID-19 (Acute) #1 COVID-19 pneumonia-patient is being given dexamethasone, patient is now on the ventilator, remdesivir dosage was completed #2 acute hypoxic respiratory failure secondary to #1-prognosis is guarded at this time, patient is on IV antibiotics empirically #3 coronary artery disease #4 essential hypertension #5 paroxysmal atrial fibrillation-patient is on Eliquis chronically #6 morbid obesity #7 elevated creatinine-possibly secondary to mild dehydration, it appears that the patient's creatinine in October of this year was 1.22, labs will be monitored Inpatient E&M: [id number] [facility] L2
[2020-04-30] MEDS: Insulin Lispro 100 UNIT/ML INSULN.PEN SC ×3 (11:30→23:30)
[2020-04-30 12:46] LABS: Bedside Glucose 168 mg/dL (70-110)
--- NOTE | 2020-04-30 13:01 | PCM.RX.CS ---
Consult Pharmacy has been consulted to manage selected antiobiotic: Vancomycin Type of Consult: Follow-up Suspected Infection: Sepsis, Pneumonia Prior Doses of Antibiotics Received/Current Regimen: Previously on 2gm iv q12h (received 2 doses). Labs: Sodium 139 mmol/L (136-145) 04/30/20 04:40 Potassium 4.4 mmol/L (3.5-5.1) 04/30/20 04:40 Chloride 105 mmol/L (98-107) 04/30/20 04:40 Carbon Dioxide 29.0 mmol/L (21.0-32.0) 04/30/20 04:40 Anion Gap 5 (5-15) 04/30/20 04:40 BUN 50 mg/dL (7-18) H 04/30/20 04:40 Creatinine 1.59 mg/dL (0.70-1.30) H 04/30/20 04:40 Est GFR (MDRD) Af Amer 56 mL/min (>60) L 04/30/20 04:40 Est GFR (MDRD) Non-Af 46 mL/min (>60) L 04/30/20 04:40 BUN/Creatinine Ratio 31.4 RATIO (10-20) H 04/30/20 04:40 Glucose 135 mg/dL (74-106) H 04/30/20 04:40 Microbiology: Microbiology 04/29/20 10:00 Sputum, Induced/Lukens Gram Stain - Final 04/29/20 10:00 Sputum, Induced/Lukens Respiratory Culture - Preliminary Staphylococcus aureus 04/29/20 10:00 Mucosa - Nasopharyngeal Respiratory Panel (PCR) - Final 04/26/20 00:40 Blood Culture (Wb) - Anticubital Left Blood Culture - Preliminary No growth in 48 hours. 04/25/20 21:13 Blood Culture (Wb) - Right Forearm Blood Culture - Preliminary No growth in 48 hours. Weight used for dosin kg Estimated Creatinine Clearance: 71 ml/min Goal Trough: 15-20 mcg/mL Pharmacy Plan for Drug Dosing: Today's Cr 1.59 with calculated CrCl 71 for adjusted body weight of 112kg. Will change dose to 1750mg iv q12h with trough level ordered for 05.02.20. Pharmacy Service will continue to monitor and adjust dosing as required. Follow-Up Labs: Trough Vancomycin - 1.05.22 @0130 before 0200 dose
--- NOTE | 2020-04-30 14:24 | CASEMGMT ---
SW participated in ICU rounds this morning. SW called this afternoon to offer support. She states she is doing okay this afternoon and the hospital has been updating her. SW let her know that SW remains available for support as needed. MITESH Olivier
--- NOTE | 2020-04-30 15:23 | PCM.PN.ID ---
Patient Problems: Active and Suspected Problems Acute respiratory failure with hypoxia (Acute) COVID-19 (Acute) Subjective: O2 improved, on vent and paralytic. - Physical Exam Vitals/I&O's: Vital Signs Temp Pulse Resp BP Pulse Ox 99.5 F H 95 16 136/63 H 91 04/30/20 14:00 04/30/20 15:07 04/30/20 15:00 04/30/20 15:00 04/30/20 15:00 Oxygen Flow Rate (L/min) 60 Oxygen Delivery Method Mechanical Ventilator Weight: 164.1 kg Body Mass Index (BMI) 49.0 Intake and Output for Last 24 Hours 04/28/20 04/29/20 04/30/20 23:59 23:59 23:59 Intake Total 1070 / 1470 2939.08 / 2994.28 2019. / Output Total 2125 / 2125 2360 / 2360 1999 Balance -1055 / -655 579.08 / 634.28 20. / 81 General: No apparent distress, Non-Cooperative Lungs: Diminished Cardiovascular: Regular rate, Regular Rhythm Abdomen: Soft, Non Tender, Non-Distended Skin: No rashes Microbiology Past 72 Hours 04/29/20 10:00 Sputum, Induced/Lukens Gram Stain - Final 04/29/20 10:00 Sputum, Induced/Lukens Respiratory Culture - Preliminary Staphylococcus aureus 04/29/20 10:00 Mucosa - Nasopharyngeal Respiratory Panel (PCR) - Final 04/26/20 00:40 Blood Culture (Wb) - Anticubital Left Blood Culture - Preliminary No growth in 48 hours. 04/25/20 21:13 Blood Culture (Wb) - Right Forearm Blood Culture - Preliminary No growth in 48 hours. Laboratory Results 04/29/20 15:10: Sodium 137, Potassium 4.0, Chloride 102, Carbon Dioxide 29.0, Anion Gap 6, BUN 52 H, Creatinine 1.59 H, Estim Creat Clear Calc 48.81, Est GFR (MDRD) Af Amer 56 L, Est GFR (MDRD) Non-Af 46 L, BUN/Creatinine Ratio 32.7 H, Glucose 135 H, Calcium 8.6 04/29/20 15:10: MRSA (PCR) Negative 04/30/20 04:40: WBC 11.6 H, RBC 5.32, Hgb 14.4, Hct 47.1, MCV 88.5, MCH 27.1, MCHC 30.6 L, RDW Std Deviation 50.6 H, RDW Coeff of Citlaly 15.5 H, Plt Count 259, MPV 9.7, Immature Gran % (Auto) 0.600, Neut % (Auto) 93.5 H, Lymph % (Auto) 2.1 L, [place] % (Auto) 3.7, Eos % (Auto) 0.0, Baso % (Auto) 0.1, Absolute Neuts (auto) 10.8 H, Absolute Lymphs (auto) 0.24 L, Nucleated RBC % 0 04/30/20 04:40: Sodium 139, Potassium 4.4, Chloride 105, Carbon Dioxide 29.0, Anion Gap 5, BUN 50 H, Creatinine 1.59 H, Estim Creat Clear Calc 48.81, Est GFR (MDRD) Af Amer 56 L, Est GFR (MDRD) Non-Af 46 L, BUN/Creatinine Ratio 31.4 H, Glucose 135 H, Calcium 8.4 L, Total Bilirubin 0.60, AST 42 H, ALT 43, Alkaline Phosphatase 88, Total Protein 7.0, Albumin 2.5 L, Globulin 4.5 H, Albumin/Globulin Ratio 0.6 L 04/30/20 07:08: Specimen Type ART, Sample Site R Radial, pH 7.28 L, Bicarbonate Actual 28.6 H, Total CO2 31, Base Excess 2, O2 Saturation 92 L, O2 % 80, ABG pCO2 61.0 H, ABG pO2 73 L, Respiration Rate 16, O2 Delivery Device ET Tube, Vent Mode AC, Tidal Volume 540, POC PEEP 15 04/30/20 11:25: POC Glucose 168 H Current Medications Acetaminophen (Acetaminophen 650 Mg/20 Ml Udc) 650 mg GT Q6H PRN PRN PRN Reason: Pain Score 1-10/Temp > 100.7 F Last Admin: 04/30/20 10:14 Dose: 650 mg Documented by: Albuterol Sulfate (Albuterol Sulfate 18 Gm Inhaler (200 Puffs)) 2 puff IH Q4H PRN PRN PRN Reason: Shortness of breath, wheezing Last Admin: 04/27/20 01:30 Dose: 2 puff Documented by: Albuterol/Ipratropium (Ipratropium/Albuterol Sulfate 3 Ml Ampul.Neb) 3 ml INHALATION Q6HWA.RT [facility] Last Admin: 04/30/20 13:32 Dose: 3 ml Documented by: Apixaban (Apixaban 5 Mg Tablet) 5 mg GT BID [facility] Last Admin: 04/30/20 08:25 Dose: 5 mg Documented by: Aspirin (Aspirin 81 Mg Tab.Chew) 81 mg GT DAILY [facility] Last Admin: 04/30/20 08:26 Dose: 81 mg Documented by: Atorvastatin Calcium (Atorvastatin Calcium 40 Mg Tablet) 40 mg GT QHS [facility] Last Admin: 04/29/20 22:11 Dose: 40 mg Documented by: Bupropion HCl (Bupropion 100 Mg Tablet) 150 mg PO BID [facility] Last Admin: 04/30/20 10:11 Dose: 150 mg Documented by: Chlorhexidine Gluconate (Chlorhexidine 15 Ml) 15 ml PO BID [facility] Last Admin: 04/30/20 08:26 Dose: 15 ml Documented by: Dexamethasone (Dexamethasone 4 Mg Tablet) 6 mg GT DAILY [facility] Stop: 05/05/20 10:01 Last Admin: 04/30/20 08:25 Dose: 6 mg Documented by: Sodium Chloride () 250 mls @ 15 mls/hr IV .[id number] PRN PRN Reason: Saline Flush Last Infusion: 04/30/20 12:11 Dose: 15 mls/hr Documented by: Sodium Chloride () 250 mls @ 15 mls/hr IV .[id number] PRN PRN Reason: Additional IVPB Infusion Cisatracurium Besylate 100 mg/ (Sodium Chloride) 250 mls @ 49.23 mls/hr CONT INF .Q5H5M [facility]; Protocol Last Titration: 04/30/20 14:00 Dose: 1.5 mcg/kg/min, 36.9 mls/hr Documented by: Fentanyl Citrate 1,000 mcg/ (Sodium Chloride) 100 mls @ 5 mls/hr CONT INF .Q20H [facility]; Protocol Last Titration: 04/30/20 14:07 Dose: 75 mcg/hr, 7.5 mls/hr Documented by: Cefepime HCl 2 gm/ Sodium (Chloride) 100 mls @ 200 mls/hr IV Q8 [facility] Last Infusion: 04/30/20 13:53 Dose: Infused Documented by: Propofol (Diprivan) 1,000 mg in 100 mls @ 9.846 mls/hr CONT INF .[id number] [facility]; Protocol Last Admin: 04/30/20 14:31 Dose: 10 mcg/kg/min, 9.8 mls/hr Documented by: Pantoprazole Sodium 40 mg/ (Sodium Chloride) 110 mls @ 330 mls/hr IV Q12 [facility] Last Infusion: 04/30/20 10:23 Dose: Infused Documented by: Enteral Nutritional Formula (Vital High Protein) 1,000 mls @ 75 mls/hr GT .[id number] [facility] Last Admin: 04/30/20 08:24 Dose: 75 mls/hr Documented by: Vancomycin IV Pharmacy to Dose (1 ea/ Sodium Chloride) 500 mls @ 250 mls/hr IV PRN PRN; Protocol PRN Reason: Rx to Dose Vancomycin HCl 1,750 mg/ (Sodium Chloride) 535 mls @ 250 mls/hr IV Q12H [facility] Insulin Human Lispro (Insulin Lispro 100 Unit/Ml Insuln.Pen) 0 unit SC Q6 [facility]; Protocol Last Admin: 04/30/20 11:30 Dose: 1 u Documented by: Losartan Potassium (Losartan Potassium 100 Mg Tablet) 100 mg GT DAILY [facility] Last Admin: 04/30/20 11:47 Dose: Not Given Documented by: Metoprolol Tartrate (Metoprolol Tartrate 50 Mg Tablet) 50 mg GT BID [facility] Last Admin: 04/30/20 08:26 Dose: 50 mg Documented by: Miscellaneous Information (Inhaler, Assist Devices 1 Each Spacer) 1 each INHALATION PRN PRN PRN Reason: WITH ALBUTEROL MDI Last Admin: 04/27/20 16:41 Dose: 1 each Documented by: Ondansetron HCl (Ondansetron 4 Mg/2 Ml Vial) 4 mg IV Q8H PRN PRN PRN Reason: NAUSEA/VOMITING Senna/Docusate Sodium (Senna/Docusate Sodium 1 Tablet) 2 tablet GT BID PRN PRN PRN Reason: Constipation Sodium Chloride (0.9% Saline Lock 10 Ml Syringe) 10 - 40 ml IV UD PRN PRN Reason: SALINE FLUSH Last Admin: 04/30/20 04:43 Dose: 40 ml Documented by: Medical Necessity - Tobacco Use Smoking Status: Never smoker Route of nutrition/ use of supplements: [] Nutritional Intake: [] IV Site: [] Lares Catheter: [] - Assessment/Plan Antibiotics: [] Assessment/Plan: [] Active and Suspected Problems Acute respiratory failure with hypoxia (Acute) COVID-19 (Acute) covid with hypoxia - on dex, remdesivir, eliquis. Fever resolved. Sx started around 04/14. Intubated 04/29, sputum cx with staph aureus so far, on vanc/cefepime. Will follow, d/w Dr. Zaman
[2020-04-30 18:51] LABS: Bedside Glucose 181 mg/dL (70-110)
--- NOTE | 2020-04-30 20:20 | NURSING ---
Unable to complete CAM d/t pt. being on a paralytic.
[2020-04-30] MEDS: Atorvastatin Calcium 40 MG Tablet GT (22:00)
[2020-05-01] VITALS (42 sets, daily range): BP systolic 105–176; BP diastolic 36–69; PULSE 11–123; RESP 16–18; TEMP 37.9–38.3; O2SAT 86–92
[2020-05-01 01:11] LABS: Bedside Glucose 162 mg/dL (70-110)
[2020-05-01] MEDS: Acetaminophen 650 MG/20 ML UDC GT ×3 (01:56→16:59)
[2020-05-01] MEDS: TITRATION PARAMETER CHANGE 1 EACH IV (02:23)
[2020-05-01] MEDS: 0.9% Saline Lock 10 ML Syringe IV ×2 (04:04→21:50)
[2020-05-01 04:09] LABS: Absolute Lymphocyte Count 0.34 X10^3/uL (0.83-4.51); Absolute Neutrophil Count 14.3 X10^3/uL (2.0-7.7); Basophil# 0.04 X10^3/uL; Basophil% 0.3 % (0-1); Eosinophil# 0.01 X10^3/uL; Eosinophils% 0.1 % (0-5); Hematocrit 48.9 % (40-54); Hemoglobin 14.9 g/dL (13.0-16.5); Lymphocyte # 0.34 X10^3/ul (4.0); Lymphocyte % 2.2 % (19-41); Mean Corp Hgb Conc 30.5 g/dL (32-36); Mean Corpuscular Hgb 27.5 pg (27.0-32.0); Mean Corpuscular Volume 90.4 fL (80-94); Mean Platelet Vol. 9.9 fl (6.2-12.0); Monocyte# 0.77 X10^3/uL; Monocyte% 4.9 % (0-10); NRBC Flagged by Analyzer 0 % (0-5); Neutrophil # 14.32 X10^3/uL (2.7-7.7); Neutrophil % 90.6 % (47-70); POSITIVE DIFFERENTIAL YES; Platelet Count 320 K/mm3 (150-450); RBC Distribution Width CV 15.7 % (11.6-14.6); RBC Distribution Width SD 51.7 fl (35.1-43.9); Red Blood Count 5.41 M/mm3 (4.6-6.2); White Blood Count 15.8 K/mm3 (4.4-11.0)
[2020-05-01 04:12] LABS: Differential Indicated SCAN CRITERIA MET
[2020-05-01 04:25] LABS: ALB/GLOB Ratio 0.5 RATIO (0.9-2.4); AST(SGOT) 27 U/L (15-37); Alanine Aminotransfer ALT/SGPT 33 U/L (16-61); Albumin, Serum 2.3 g/dL (3.2-5.0); Alkaline Phosphatase 82 U/L (45-117); Anion Gap 2 (5-15); BUN 52 mg/dL (7-18); BUN/Creat Ratio 35.4 RATIO (10-20); Calcium,Total 8.6 mg/dL (8.5-10.1); Chloride 109 mmol/L (98-107); Creatinine, Serum 1.47 mg/dL (0.70-1.30); EST Glomerular Filtration Rate 51 mL/min (>60); Est Glom Filt Rate - Afr Amer 61 mL/min (>60); Estimated Creatinine Clearance 52.79 ml/min; Globulin 4.7 g/dL (2.2-4.2); Glucose 171 mg/dL (74-106); Potassium 4.9 mmol/L (3.5-5.1); Sodium Level 140 mmol/L (136-145)
[2020-05-01] MEDS: Propofol 10MG/Ml 1,000 MG/100 ML Bottle 9.9 MG CONT INF ×3 (05:15→18:47)
[2020-05-01] MEDS: Insulin Lispro 100 UNIT/ML INSULN.PEN SC ×4 (05:36→23:44)
--- NOTE | 2020-05-01 05:42 | PCM.PN.INT ---
Subjective: The patient was seen and examined at the bedside this morning. Events from the last 24 hours have been reviewed. The patient is currently afebrile, hemodynamically stable and maintaining appropriate oxygen saturations on assist control mode of mechanical ventilation with an FiO2 requirement of 70% and PEEP of 15. The patient's IV Lasix was held yesterday afternoon/evening due to hypotension. Creatinine is stable this morning at 1.47. The patient is currently documented to be overall net +3.1 L for the hospital admission. The patient has completed a treatment course of remdesivir and remains on Decadron and antimicrobials. BIS values remain in the high 30's/low 40's. The patient has been tolerant of tube feeds thus far. Objective: The patient's most recent lab work, culture data and imaging studies have all been personally reviewed. Surface echocardiogram from October 2019 revealed moderate concentric LVH with an ejection fraction of 75%. Blood cultures are pending. Respiratory viral panel is pending. Sputum culture was positive for staph aureus. General: - - The patient remains intubated, heavily sedated and mechanically ventilated. HEENT: Atraumatic, PERRLA, Normocephalic Oral: Dry Mucosa, - - Endotracheal and OG tubes in place Neck: Supple, No Nodes, Trachea Midline Lungs: No rhonchi, No wheeze, No rales, Diminished Cardiovascular: Normal S1, Normal S2, No murmurs, Tachycardic Abdomen: Bowel Sounds Present, Soft, Non Tender, Obese Extremities: No clubbing, No cyanosis, No edema, Cool, - - Mottled lower extremities Skin: - - No significant change from previous Musculoskeletal: No Muscle Wasting Neurological: - - Unable to perform neurological evaluation given need for pharmacologic paralysis Vital Signs Temp Pulse Resp BP Pulse Ox 100.3 F H 97 16 150/46 H 90 05/01/20 05:00 05/01/20 05:00 05/01/20 05:00 05/01/20 05:00 05/01/20 05:00 Oxygen Flow Rate (L/min) 60 Oxygen Delivery Method Mechanical Ventilator Weight: 362 lb 7.039 oz Body Mass Index (BMI) 49.0 Intake and Output for Last 24 Hours 04/29/20 04/30/20 05/01/20 23:59 23:59 23:59 Intake Total 2939.08 / 2994.28 3939.72 / 3987.71 1220.87 / 1220.87 Output Total 2360 / 2360 3095 / 3095 510 / 510 Balance 579.08 / 634.28 844.72 / 892.71 710.87 / 710.87 Labs (Last 48 Hours) 04/29/20 04/29/20 04/29/20 05:40 05:40 05:40 WBC 9.8 RBC 5.70 Hgb 15.1 Hct 49.0 MCV 86.0 MCH 26.5 L MCHC 30.8 L RDW Std Deviation 47.5 H RDW Coeff of Citlaly 15.2 H Plt Count 263 MPV 10.3 Immature Gran % (Auto) 1.000 H Neut % (Auto) 83.7 H Lymph % (Auto) 9.9 L Warrick % (Auto) 5.2 Eos % (Auto) 0.1 Baso % (Auto) 0.1 Absolute Neuts (auto) 8.2 H Absolute Lymphs (auto) 0.97 Nucleated RBC % 0 Specimen Type Sample Site pH Bicarbonate Actual Total CO2 Base Excess O2 Saturation O2 % ABG pCO2 ABG pO2 Respiration Rate O2 Delivery Device Vent Mode Tidal Volume POC PEEP Sodium 137 Potassium 4.4 Chloride 100 Carbon Dioxide 29.0 Anion Gap 8 BUN 48 H Creatinine 1.39 H Estim Creat Clear Calc 55.83 Est GFR (MDRD) Af Amer 65 Est GFR (MDRD) Non-Af 54 L BUN/Creatinine Ratio 34.5 H Glucose 78 Calcium 8.7 Total Bilirubin 0.80 AST 53 H ALT 36 Alkaline Phosphatase 68 Total Creatine Kinase Troponin I < 0.015 B-Natriuretic Peptide Total Protein 7.0 Albumin 3.0 L Globulin 4.0 Albumin/Globulin Ratio 0.8 L Triglycerides MRSA (PCR) POC Glucose 04/29/20 04/29/20 04/29/20 05:40 05:40 11:13 WBC RBC Hgb Hct MCV MCH MCHC RDW Std Deviation RDW Coeff of Citlaly Plt Count MPV Immature Gran % (Auto) Neut % (Auto) Lymph % (Auto) Warrick % (Auto) Eos % (Auto) Baso % (Auto) Absolute Neuts (auto) Absolute Lymphs (auto) Nucleated RBC % Specimen Type ART Sample Site R Radial pH 7.23 L Bicarbonate Actual 28.9 H Total CO2 31 Base Excess 1 O2 Saturation 91 L O2 % 100 ABG pCO2 68.6 H* ABG pO2 73 L Respiration Rate 14 O2 Delivery Device ET Tube Vent Mode AC Tidal Volume 500 POC PEEP 17 Sodium Potassium Chloride Carbon Dioxide Anion Gap BUN Creatinine Estim Creat Clear Calc Est GFR (MDRD) Af Amer Est GFR (MDRD) Non-Af BUN/Creatinine Ratio Glucose Calcium Total Bilirubin AST ALT Alkaline Phosphatase Total Creatine Kinase 184 Troponin I B-Natriuretic Peptide 20.9 Total Protein Albumin Globulin Albumin/Globulin Ratio Triglycerides 159 MRSA (PCR) POC Glucose 04/29/20 04/29/20 04/30/20 15:10 15:10 04:40 WBC 11.6 H RBC 5.32 Hgb 14.4 Hct 47.1 MCV 88.5 MCH 27.1 MCHC 30.6 L RDW Std Deviation 50.6 H RDW Coeff of Citlaly 15.5 H Plt Count 259 MPV 9.7 Immature Gran % (Auto) 0.600 Neut % (Auto) 93.5 H Lymph % (Auto) 2.1 L Warrick % (Auto) 3.7 Eos % (Auto) 0.0 Baso % (Auto) 0.1 Absolute Neuts (auto) 10.8 H Absolute Lymphs (auto) 0.24 L Nucleated RBC % 0 Specimen Type Sample Site pH Bicarbonate Actual Total CO2 Base Excess O2 Saturation O2 % ABG pCO2 ABG pO2 Respiration Rate O2 Delivery Device Vent Mode Tidal Volume POC PEEP Sodium 137 Potassium 4.0 Chloride 102 Carbon Dioxide 29.0 Anion Gap 6 BUN 52 H Creatinine 1.59 H Estim Creat Clear Calc 48.81 Est GFR (MDRD) Af Amer 56 L Est GFR (MDRD) Non-Af 46 L BUN/Creatinine Ratio 32.7 H Glucose 135 H Calcium 8.6 Total Bilirubin AST ALT Alkaline Phosphatase Total Creatine Kinase Troponin I B-Natriuretic Peptide Total Protein Albumin Globulin Albumin/Globulin Ratio Triglycerides MRSA (PCR) Negative POC Glucose 04/30/20 04/30/20 04/30/20 04:40 07:08 11:25 WBC RBC Hgb Hct MCV MCH MCHC RDW Std Deviation RDW Coeff of Citlaly Plt Count MPV Immature Gran % (Auto) Neut % (Auto) Lymph % (Auto) Warrick % (Auto) Eos % (Auto) Baso % (Auto) Absolute Neuts (auto) Absolute Lymphs (auto) Nucleated RBC % Specimen Type ART Sample Site R Radial pH 7.28 L Bicarbonate Actual 28.6 H Total CO2 31 Base Excess 2 O2 Saturation 92 L O2 % 80 ABG pCO2 61.0 H ABG pO2 73 L Respiration Rate 16 O2 Delivery Device ET Tube Vent Mode AC Tidal Volume 540 POC PEEP 15 Sodium 139 Potassium 4.4 Chloride 105 Carbon Dioxide 29.0 Anion Gap 5 BUN 50 H Creatinine 1.59 H Estim Creat Clear Calc 48.81 Est GFR (MDRD) Af Amer 56 L Est GFR (MDRD) Non-Af 46 L BUN/Creatinine Ratio 31.4 H Glucose 135 H Calcium 8.4 L Total Bilirubin 0.60 AST 42 H ALT 43 Alkaline Phosphatase 88 Total Creatine Kinase Troponin I B-Natriuretic Peptide Total Protein 7.0 Albumin 2.5 L Globulin 4.5 H Albumin/Globulin Ratio 0.6 L Triglycerides MRSA (PCR) POC Glucose 168 H 04/30/20 04/30/20 05/01/20 17:12 23:28 03:55 WBC 15.8 H RBC 5.41 Hgb 14.9 Hct 48.9 MCV 90.4 MCH 27.5 MCHC 30.5 L RDW Std Deviation 51.7 H RDW Coeff of Citlaly 15.7 H Plt Count 320 MPV 9.9 Immature Gran % (Auto) 1.900 H Neut % (Auto) 90.6 H Lymph % (Auto) 2.2 L Warrick % (Auto) 4.9 Eos % (Auto) 0.1 Baso % (Auto) 0.3 Absolute Neuts (auto) 14.3 H Absolute Lymphs (auto) 0.34 L Nucleated RBC % 0 Specimen Type Sample Site pH Bicarbonate Actual Total CO2 Base Excess O2 Saturation O2 % ABG pCO2 ABG pO2 Respiration Rate O2 Delivery Device Vent Mode Tidal Volume POC PEEP Sodium Potassium Chloride Carbon Dioxide Anion Gap BUN Creatinine Estim Creat Clear Calc Est GFR (MDRD) Af Amer Est GFR (MDRD) Non-Af BUN/Creatinine Ratio Glucose Calcium Total Bilirubin AST ALT Alkaline Phosphatase Total Creatine Kinase Troponin I B-Natriuretic Peptide Total Protein Albumin Globulin Albumin/Globulin Ratio Triglycerides MRSA (PCR) POC Glucose 181 H 162 H 05/01/20 03:55 WBC RBC Hgb Hct MCV MCH MCHC RDW Std Deviation RDW Coeff of Citlaly Plt Count MPV Immature Gran % (Auto) Neut % (Auto) Lymph % (Auto) Warrick % (Auto) Eos % (Auto) Baso % (Auto) Absolute Neuts (auto) Absolute Lymphs (auto) Nucleated RBC % Specimen Type Sample Site pH Bicarbonate Actual Total CO2 Base Excess O2 Saturation O2 % ABG pCO2 ABG pO2 Respiration Rate O2 Delivery Device Vent Mode Tidal Volume POC PEEP Sodium 140 Potassium 4.9 Chloride 109 H Carbon Dioxide 29.0 Anion Gap 2 L BUN 52 H Creatinine 1.47 H Estim Creat Clear Calc 52.79 Est GFR (MDRD) Af Amer 61 Est GFR (MDRD) Non-Af 51 L BUN/Creatinine Ratio 35.4 H Glucose 171 H Calcium 8.6 Total Bilirubin 0.40 AST 27 ALT 33 Alkaline Phosphatase 82 Total Creatine Kinase Troponin I B-Natriuretic Peptide Total Protein 7.0 Albumin 2.3 L Globulin 4.7 H Albumin/Globulin Ratio 0.5 L Triglycerides MRSA (PCR) POC Glucose Microbiology 04/29/20 10:00 Sputum, Induced/Lukens Gram Stain - Final 04/29/20 10:00 Sputum, Induced/Lukens Respiratory Culture - Preliminary Staphylococcus aureus 04/29/20 10:00 Mucosa - Nasopharyngeal Respiratory Panel (PCR) - Final Clinical Impression(s) from Imaging Studies Chest X-Ray 04/25/20 20:54 IMPRESSION: 1. Vascular congestion and interstitial edema, new since the prior study. Electronically Signed: Eduardo Figueroa MD ([facility]) at 21:50 EST , Service support , Chest X-Ray 04/28/20 07:45 IMPRESSION: Stable exam. Vascular congestion with interstitial edema favoring pulmonary edema although pneumonia including viral causes also possible. Electronically Signed: Eduardo Figueroa MD ([facility]) at 8:06 EST , Service support , Chest X-Ray 04/29/20 08:31 IMPRESSION: 1. Suboptimal placement of endotracheal tube with tip terminating at the first rib. Recommend advancing 4-5 cm. 2. Worsening congestion with interstitial edema favoring pulmonary edema although pneumonia including viral causes also possible. Electronically Signed: Eduardo Figueroa MD ([facility]) at 9:39 EST , Service support , Chest X-Ray 04/29/20 08:52 IMPRESSION: 1. Persistent suboptimal placement of endotracheal tube with tip terminating at the first rib. Recommend advancing 4-5 cm. 2. Worsening vascular congestion with interstitial edema favoring pulmonary edema although pneumonia (including viral causes) also possible. Electronically Signed: Eduardo Figueroa MD ([facility]) at 9:41 EST , Service support , Chest X-Ray 04/29/20 09:50 IMPRESSION: 1. Endotracheal tube in satisfactory position with tip 3.5 cm above the yisel 2. Less conspicuous (since earlier today) vascular congestion with interstitial edema favoring pulmonary edema although pneumonia (including viral causes) also possible. Electronically Signed: Eduardo Figueroa MD ([facility]) at 10:20 EST , Service support , Chest X-Ray 04/29/20 10:11 IMPRESSION: 1. Endotracheal tube terminates with tip 2.2 cm above the yisel 2. Similar vascular congestion with interstitial edema favoring pulmonary edema although pneumonia (including viral causes) also possible. Electronically Signed: Eduardo Figueroa MD ([facility]) at 10:35 EST , Service support , Medical Necessity - Tobacco Use Smoking Status: Never smoker Assessment/Plan All Active Problems Acute respiratory failure with hypoxia (Acute) COVID-19 (Acute) RECOMMENDATIONS: 1. Continue current sedation regimen and pharmacologic paralysis with cisatracurium. 2. Continue tube feeds as tolerated. 3. Continue empiric antimicrobials, while awaiting finalized sputum culture results. 4. Continue aggressive diuresis as tolerated by hemodynamics and renal function. 5. Continue systemic anticoagulation with Eliquis as ordered. 6. Continue Decadron. 7. Continue appropriate GI prophylaxis. 8. Wean FiO2 and PEEP to maintain oxygen saturations at or above 90%. IMPRESSIONS: 1. Acute hypoxemic respiratory failure secondary to ARDS due to COVID-19 pneumonia The patient was initially diagnosed 1 week prior to hospital admission. Although attempts were made to utilize high flow oxygen and noninvasive positive pressure ventilatory support, the patient continued to decompensate from a respiratory perspective, requiring transfer to ICU and subsequent intubation on April 29. The patient has gone on to develop fulminant ARDS with high ventilator requirements. The patient has completed a treatment course of remdesivir and will remain on Decadron. Empiric antimicrobials will be continued, pending finalized sputum culture results. Also plan to continue IV diuretic therapy as tolerated by hemodynamics and renal function. Continue tube feeds as tolerated. The patient will remain on paralytics today, with a goal to begin to wean the cis atracurium beginning tomorrow. 2. Obesity/hypertension/hyperlipidemia/paroxysmal atrial fibrillation/coronary artery disease/GERD Complicates care, management, recovery and prognosis. Continue home medications as indicated. TIME: 40 minutes of critical care time, inclusive of procedures, was spent addressing the patient's acute hypoxemic respiratory failure secondary to ARDS due to COVID-19 pneumonia, paroxysmal atrial fibrillation, coronary artery disease, review of all data and collaboration with care team. [phone]) [phone] [id number] Critical care first hour
[2020-05-01] MEDS: Furosemide 40 MG/4 ML Vial IV ×3 (06:15→21:54)
[2020-05-01 06:26] LABS: Bedside Glucose 160 mg/dL (70-110)
[2020-05-01] MEDS: Ipratropium/Albuterol Sulfate 3 ML AMPUL.NEB INHALATION ×3 (06:44→19:22)
[2020-05-01] MEDS: dexAMETHasone 4 MG Tablet 6 MG GT (08:10)
[2020-05-01] MEDS: buPROPion 100 MG Tablet 150 MG PO ×2 (08:11→21:49)
[2020-05-01] MEDS: Losartan Potassium 100 MG Tablet GT (08:11)
[2020-05-01] MEDS: Aspirin 81 MG TAB.CHEW GT (08:11)
[2020-05-01] MEDS: APIXABAN 5 MG TABLET GT ×2 (08:11→21:49)
[2020-05-01] MEDS: Chlorhexidine 15 ML PO ×2 (08:12→21:49)
[2020-05-01] MEDS: Metoprolol Tartrate 50 MG Tablet GT ×2 (08:12→21:49)
[2020-05-01] MEDS: Vital High Protein 1,000 ML 75 ML GT (10:13)
--- NOTE | 2020-05-01 10:29 | PCM.PN.HOSP ---
Patient Problems: Active and Suspected Problems Acute respiratory failure with hypoxia (Acute) COVID-19 (Acute) Subjective: Intubated, sedated, paralyzed Vitals/I&O's: Vital Signs Temp Pulse Resp BP Pulse Ox 101 F H 92 18 105/48 L 91 05/01/20 10:00 05/01/20 10:00 05/01/20 10:00 05/01/20 10:00 05/01/20 10:00 Oxygen Flow Rate (L/min) 60 Oxygen Delivery Method Mechanical Ventilator Weight: 362 lb 7.039 oz Body Mass Index (BMI) 49.0 Intake and Output for Last 24 Hours 04/29/20 04/30/20 05/01/20 23:59 23:59 23:59 Intake Total 2939.08 / 2994.28 3939.72 / 3987.71 1746.70 / 1746.70 Output Total 2360 / 2360 3095 / 3095 1410 / 1410 Balance 579.08 / 634.28 844.72 / 892.71 336.70 / 336.70 General: - - Intubated and sedated HEENT: Atraumatic, PERRLA, Normocephalic Oral: Dry Mucosa Neck: Supple, No JVD Lungs: Normal air movement, No rhonchi, No wheeze, No rales, Diminished Cardiovascular: Regular rate, Regular Rhythm, Normal S1, Normal S2 Abdomen: Soft, Non-Distended, No Hepato-splenomegaly Extremities: No edema, Capillary Refill Less than 3 Seconds, - - Mottled appearance of the lower extremities Skin: No rashes, No breakdown Neurological: - - Intubated and sedated Psych/Mental Status: - - Intubated and sedated Microbiology Past 72 Hours 04/26/20 00:40 Blood Culture (Wb) - Anticubital Left Blood Culture - Final No growth in 5 days. 04/25/20 21:13 Blood Culture (Wb) - Right Forearm Blood Culture - Final No growth in 5 days. 04/29/20 10:00 Sputum, Induced/Lukens Gram Stain - Final 04/29/20 10:00 Sputum, Induced/Lukens Respiratory Culture - Final Staphylococcus aureus 04/29/20 10:00 Mucosa - Nasopharyngeal Respiratory Panel (PCR) - Final Laboratory Results 04/30/20 11:25: POC Glucose 168 H 04/30/20 17:12: POC Glucose 181 H 04/30/20 23:28: POC Glucose 162 H 05/01/20 03:55: WBC 15.8 H, RBC 5.41, Hgb 14.9, Hct 48.9, MCV 90.4, MCH 27.5, MCHC 30.5 L, RDW Std Deviation 51.7 H, RDW Coeff of Citlaly 15.7 H, Plt Count 320, MPV 9.9, Immature Gran % (Auto) 1.900 H, Neut % (Auto) 90.6 H, Lymph % (Auto) 2.2 L, Grady % (Auto) 4.9, Eos % (Auto) 0.1, Baso % (Auto) 0.3, Absolute Neuts (auto) 14.3 H, Absolute Lymphs (auto) 0.34 L, Nucleated RBC % 0 05/01/20 03:55: Sodium 140, Potassium 4.9, Chloride 109 H, Carbon Dioxide 29.0, Anion Gap 2 L, BUN 52 H, Creatinine 1.47 H, Estim Creat Clear Calc 52.79, Est GFR (MDRD) Af Amer 61, Est GFR (MDRD) Non-Af 51 L, BUN/Creatinine Ratio 35.4 H, Glucose 171 H, Calcium 8.6, Total Bilirubin 0.40, AST 27, ALT 33, Alkaline Phosphatase 82, Total Protein 7.0, Albumin 2.3 L, Globulin 4.7 H, Albumin/Globulin Ratio 0.5 L 05/01/20 05:32: POC Glucose 160 H Current Medications Acetaminophen (Acetaminophen 650 Mg/20 Ml Udc) 650 mg GT Q6H PRN PRN PRN Reason: Pain Score 1-10/Temp > 100.7 F Last Admin: 05/01/20 08:10 Dose: 650 mg Documented by: Albuterol Sulfate (Albuterol Sulfate 18 Gm Inhaler (200 Puffs)) 2 puff IH Q4H PRN PRN PRN Reason: Shortness of breath, wheezing Last Admin: 04/27/20 01:30 Dose: 2 puff Documented by: Albuterol/Ipratropium (Ipratropium/Albuterol Sulfate 3 Ml Ampul.Neb) 3 ml INHALATION Q6HWA.RT BOSSMAN Last Admin: 05/01/20 06:44 Dose: 3 ml Documented by: Apixaban (Apixaban 5 Mg Tablet) 5 mg GT BID [facility] Last Admin: 05/01/20 08:11 Dose: 5 mg Documented by: Aspirin (Aspirin 81 Mg Tab.Chew) 81 mg GT DAILY [facility] Last Admin: 05/01/20 08:11 Dose: 81 mg Documented by: Atorvastatin Calcium (Atorvastatin Calcium 40 Mg Tablet) 40 mg GT QHS [facility] Last Admin: 04/30/20 22:00 Dose: 40 mg Documented by: Bupropion HCl (Bupropion 100 Mg Tablet) 150 mg PO BID [facility] Last Admin: 05/01/20 08:11 Dose: 150 mg Documented by: Chlorhexidine Gluconate (Chlorhexidine 15 Ml) 15 ml PO BID [facility] Last Admin: 05/01/20 08:12 Dose: 15 ml Documented by: Dexamethasone (Dexamethasone 4 Mg Tablet) 6 mg GT DAILY [facility] Stop: 05/05/20 10:01 Last Admin: 05/01/20 08:10 Dose: 6 mg Documented by: Furosemide (Furosemide 40 Mg/4 Ml Vial) 40 mg IV Q8 [facility] Last Admin: 05/01/20 06:15 Dose: 40 mg Documented by: Sodium Chloride () 250 mls @ 15 mls/hr IV .[id number] PRN PRN Reason: Saline Flush Last Infusion: 05/01/20 05:54 Dose: 15 mls/hr Documented by: Sodium Chloride () 250 mls @ 15 mls/hr IV .[id number] PRN PRN Reason: Additional IVPB Infusion Cisatracurium Besylate 100 mg/ (Sodium Chloride) 250 mls @ 49.32 mls/hr CONT INF .Q5H5M [facility]; Protocol Last Titration: 05/01/20 09:00 Dose: 2 mcg/kg/min, 49.3 mls/hr Documented by: Fentanyl Citrate 1,000 mcg/ (Sodium Chloride) 100 mls @ 5 mls/hr CONT INF .Q20H [facility]; Protocol Last Titration: 05/01/20 09:03 Dose: 75 mcg/hr, 7.5 mls/hr Documented by: Cefepime HCl 2 gm/ Sodium (Chloride) 100 mls @ 200 mls/hr IV Q8 [facility] Last Infusion: 05/01/20 05:53 Dose: Infused Documented by: Propofol (Diprivan) 1,000 mg in 100 mls @ 9.864 mls/hr CONT INF .Q10H9M [facility]; Protocol Last Titration: 05/01/20 09:00 Dose: 10 mcg/kg/min, 9.9 mls/hr Documented by: Pantoprazole Sodium 40 mg/ (Sodium Chloride) 110 mls @ 330 mls/hr IV Q12 [facility] Last Infusion: 05/01/20 10:23 Dose: Infused Documented by: Enteral Nutritional Formula (Vital High Protein) 1,000 mls @ 75 mls/hr GT .[id number] [facility] Last Admin: 05/01/20 10:13 Dose: 75 mls/hr Documented by: Vancomycin IV Pharmacy to Dose (1 ea/ Sodium Chloride) 500 mls @ 250 mls/hr IV PRN PRN; Protocol PRN Reason: Rx to Dose Vancomycin HCl 1,750 mg/ (Sodium Chloride) 535 mls @ 250 mls/hr IV Q12H [facility] Last Infusion: 05/01/20 04:31 Dose: Infused Documented by: Insulin Human Lispro (Insulin Lispro 100 Unit/Ml Insuln.Pen) 0 unit SC Q6 [facility]; Protocol Last Admin: 05/01/20 05:36 Dose: 1 u Documented by: Losartan Potassium (Losartan Potassium 100 Mg Tablet) 100 mg GT DAILY [facility] Last Admin: 05/01/20 08:11 Dose: 100 mg Documented by: Metoprolol Tartrate (Metoprolol Tartrate 50 Mg Tablet) 50 mg GT BID [facility] Last Admin: 05/01/20 08:12 Dose: 50 mg Documented by: Miscellaneous Information (Inhaler, Assist Devices 1 Each Spacer) 1 each INHALATION PRN PRN PRN Reason: WITH ALBUTEROL MDI Last Admin: 04/27/20 16:41 Dose: 1 each Documented by: Ondansetron HCl (Ondansetron 4 Mg/2 Ml Vial) 4 mg IV Q8H PRN PRN PRN Reason: NAUSEA/VOMITING Senna/Docusate Sodium (Senna/Docusate Sodium 1 Tablet) 2 tablet GT BID PRN PRN PRN Reason: Constipation Sodium Chloride (0.9% Saline Lock 10 Ml Syringe) 10 - 40 ml IV UD PRN PRN Reason: SALINE FLUSH Last Admin: 05/01/20 04:04 Dose: 20 ml Documented by: STROKE Vital Signs/Narrative: Vital Signs Temp Pulse Resp BP BP Pulse Ox 05/01/20 10:00 101 F H 92 18 105/48 L 91 05/01/20 09:00 93 16 120/49 L 91 05/01/20 08:12 120 H 172/65 H 05/01/20 08:00 100.9 F H 118 H 16 172/65 H 90 05/01/20 07:00 118 H 16 176/65 H 90 05/01/20 06:59 113 H 05/01/20 06:44 110 H 16 91 Medical Necessity - Tobacco Use Smoking Status: Never smoker Assessment/Plan All Active Problems Acute respiratory failure with hypoxia (Acute) COVID-19 (Acute) 1. Acute hypoxic respiratory failure secondary to COVID-19 pneumonia/ALBERTO on CKD 3 -Developed symptoms on 04/14/2020 and intubated on 04/29/2020 -Currently on a PEEP of 15 with an FiO2 of 70% -We will initiate Lasix today per ICU -Continue with Decadron, completed remdesivir -Initiate ID assistance -Cefepime and Vanco for staph in the sputum -Continue to monitor renal function -We will need to continue monitoring his blood sugar secondary to the Decadron, adjust insulin as necessary 2. CAD status post CABG/HTN/HLD/paroxysmal A. fib/morbid obesity -We will continue to monitor his blood pressures and adjust Lasix dosing -Continue with Eliquis for his A. fib -Continue with aspirin, Lipitor, losartan for G-tube -Continue with metoprolol -Once extubated and alert can discuss lifestyle modifications since his BMI is 49 DVT: Eliquis Inpatient E&M: [id number] Subs Hosp L2
[2020-05-01] MEDS: Senna/Docusate Sodium 1 Tablet 2 TABLET GT (11:45)
--- NOTE | 2020-05-01 12:44 | PCM.PN.ID ---
Patient Problems: Active and Suspected Problems Acute respiratory failure with hypoxia (Acute) COVID-19 (Acute) Subjective: On vent, no fever - Physical Exam Vitals/I&O's: Vital Signs Temp Pulse Resp BP Pulse Ox 100.7 F H 98 16 157/47 H 91 05/01/20 12:00 05/01/20 12:00 05/01/20 12:00 05/01/20 12:00 05/01/20 12:00 Oxygen Flow Rate (L/min) 60 Oxygen Delivery Method Mechanical Ventilator Weight: 164.4 kg Body Mass Index (BMI) 49.0 Intake and Output for Last 24 Hours 04/29/20 04/30/20 05/01/20 23:59 23:59 23:59 Intake Total 2939.08 / 2994.28 3939.72 / 3987.71 2290.66 / 2290.66 Output Total 2360 / 2360 3095 / 3095 1710 / 1710 Balance 579.08 / 634.28 844.72 / 892.71 580.66 / 580.66 General: No apparent distress Lungs: Diminished, Rhonchi Cardiovascular: Regular rate, Regular Rhythm Abdomen: Soft, Non Tender, Non-Distended Skin: No rashes Microbiology Past 72 Hours 04/26/20 00:40 Blood Culture (Wb) - Anticubital Left Blood Culture - Final No growth in 5 days. 04/25/20 21:13 Blood Culture (Wb) - Right Forearm Blood Culture - Final No growth in 5 days. 04/29/20 10:00 Sputum, Induced/Lukens Gram Stain - Final 04/29/20 10:00 Sputum, Induced/Lukens Respiratory Culture - Final Staphylococcus aureus 04/29/20 10:00 Mucosa - Nasopharyngeal Respiratory Panel (PCR) - Final Laboratory Results 04/30/20 11:25: POC Glucose 168 H 04/30/20 17:12: POC Glucose 181 H 04/30/20 23:28: POC Glucose 162 H 05/01/20 03:55: WBC 15.8 H, RBC 5.41, Hgb 14.9, Hct 48.9, MCV 90.4, MCH 27.5, MCHC 30.5 L, RDW Std Deviation 51.7 H, RDW Coeff of Citlaly 15.7 H, Plt Count 320, MPV 9.9, Immature Gran % (Auto) 1.900 H, Neut % (Auto) 90.6 H, Lymph % (Auto) 2.2 L, [place] % (Auto) 4.9, Eos % (Auto) 0.1, Baso % (Auto) 0.3, Absolute Neuts (auto) 14.3 H, Absolute Lymphs (auto) 0.34 L, Nucleated RBC % 0 05/01/20 03:55: Sodium 140, Potassium 4.9, Chloride 109 H, Carbon Dioxide 29.0, Anion Gap 2 L, BUN 52 H, Creatinine 1.47 H, Estim Creat Clear Calc 52.79, Est GFR (MDRD) Af Amer 61, Est GFR (MDRD) Non-Af 51 L, BUN/Creatinine Ratio 35.4 H, Glucose 171 H, Calcium 8.6, Total Bilirubin 0.40, AST 27, ALT 33, Alkaline Phosphatase 82, Total Protein 7.0, Albumin 2.3 L, Globulin 4.7 H, Albumin/Globulin Ratio 0.5 L 05/01/20 05:32: POC Glucose 160 H Current Medications Acetaminophen (Acetaminophen 650 Mg/20 Ml Udc) 650 mg GT Q6H PRN PRN PRN Reason: Pain Score 1-10/Temp > 100.7 F Last Admin: 05/01/20 08:10 Dose: 650 mg Documented by: Albuterol Sulfate (Albuterol Sulfate 18 Gm Inhaler (200 Puffs)) 2 puff IH Q4H PRN PRN PRN Reason: Shortness of breath, wheezing Last Admin: 04/27/20 01:30 Dose: 2 puff Documented by: Albuterol/Ipratropium (Ipratropium/Albuterol Sulfate 3 Ml Ampul.Neb) 3 ml INHALATION Q6HWA.RT [facility] Last Admin: 05/01/20 06:44 Dose: 3 ml Documented by: Apixaban (Apixaban 5 Mg Tablet) 5 mg GT BID [facility] Last Admin: 05/01/20 08:11 Dose: 5 mg Documented by: Aspirin (Aspirin 81 Mg Tab.Chew) 81 mg GT DAILY [facility] Last Admin: 05/01/20 08:11 Dose: 81 mg Documented by: Atorvastatin Calcium (Atorvastatin Calcium 40 Mg Tablet) 40 mg GT QHS [facility] Last Admin: 04/30/20 22:00 Dose: 40 mg Documented by: Bupropion HCl (Bupropion 100 Mg Tablet) 150 mg PO BID [facility] Last Admin: 05/01/20 08:11 Dose: 150 mg Documented by: Chlorhexidine Gluconate (Chlorhexidine 15 Ml) 15 ml PO BID [facility] Last Admin: 05/01/20 08:12 Dose: 15 ml Documented by: Dexamethasone (Dexamethasone 4 Mg Tablet) 6 mg GT DAILY [facility] Stop: 05/05/20 10:01 Last Admin: 05/01/20 08:10 Dose: 6 mg Documented by: Furosemide (Furosemide 40 Mg/4 Ml Vial) 40 mg IV Q8 [facility] Last Admin: 05/01/20 06:15 Dose: 40 mg Documented by: Sodium Chloride () 250 mls @ 15 mls/hr IV .[id number] PRN PRN Reason: Saline Flush Last Infusion: 05/01/20 05:54 Dose: 15 mls/hr Documented by: Sodium Chloride () 250 mls @ 15 mls/hr IV .[id number] PRN PRN Reason: Additional IVPB Infusion Cisatracurium Besylate 100 mg/ (Sodium Chloride) 250 mls @ 49.32 mls/hr CONT INF .Q5H5M [facility]; Protocol Last Titration: 05/01/20 12:00 Dose: 2 mcg/kg/min, 49.3 mls/hr Documented by: Fentanyl Citrate 1,000 mcg/ (Sodium Chloride) 100 mls @ 5 mls/hr CONT INF .Q20H [facility]; Protocol Last Titration: 05/01/20 12:00 Dose: 75 mcg/hr, 7.5 mls/hr Documented by: Cefepime HCl 2 gm/ Sodium (Chloride) 100 mls @ 200 mls/hr IV Q8 [facility] Last Infusion: 05/01/20 05:53 Dose: Infused Documented by: Propofol (Diprivan) 1,000 mg in 100 mls @ 9.864 mls/hr CONT INF .Q10H9M [facility]; Protocol Last Titration: 05/01/20 12:00 Dose: 10 mcg/kg/min, 9.9 mls/hr Documented by: Pantoprazole Sodium 40 mg/ (Sodium Chloride) 110 mls @ 330 mls/hr IV Q12 [facility] Last Infusion: 05/01/20 10:23 Dose: Infused Documented by: Enteral Nutritional Formula (Vital High Protein) 1,000 mls @ 75 mls/hr GT .[id number] [facility] Last Admin: 05/01/20 10:13 Dose: 75 mls/hr Documented by: Insulin Human Lispro (Insulin Lispro 100 Unit/Ml Insuln.Pen) 0 unit SC Q6 [facility]; Protocol Last Admin: 05/01/20 11:42 Dose: 1 u Documented by: Losartan Potassium (Losartan Potassium 100 Mg Tablet) 100 mg GT DAILY [facility] Last Admin: 05/01/20 08:11 Dose: 100 mg Documented by: Metoprolol Tartrate (Metoprolol Tartrate 50 Mg Tablet) 50 mg GT BID [facility] Last Admin: 05/01/20 08:12 Dose: 50 mg Documented by: Miscellaneous Information (Inhaler, Assist Devices 1 Each Spacer) 1 each INHALATION PRN PRN PRN Reason: WITH ALBUTEROL MDI Last Admin: 04/27/20 16:41 Dose: 1 each Documented by: Ondansetron HCl (Ondansetron 4 Mg/2 Ml Vial) 4 mg IV Q8H PRN PRN PRN Reason: NAUSEA/VOMITING Senna/Docusate Sodium (Senna/Docusate Sodium 1 Tablet) 2 tablet GT BID PRN PRN PRN Reason: Constipation Last Admin: 05/01/20 11:45 Dose: 2 tablet Documented by: Sodium Chloride (0.9% Saline Lock 10 Ml Syringe) 10 - 40 ml IV UD PRN PRN Reason: SALINE FLUSH Last Admin: 05/01/20 04:04 Dose: 20 ml Documented by: Medical Necessity - Tobacco Use Smoking Status: Never smoker Route of nutrition/ use of supplements: [] Nutritional Intake: [] IV Site: [] Lares Catheter: [] - Assessment/Plan Antibiotics: [] Assessment/Plan: [] Active and Suspected Problems Acute respiratory failure with hypoxia (Acute) COVID-19 (Acute) covid with hypoxia - on dex, remdesivir, eliquis. Fever resolved. Sx started around 04/14. Intubated 04/29, sputum cx with MSSA, on vanc/cefepime. Will stop vanc. Will follow
[2020-05-01 12:51] LABS: Bedside Glucose 180 mg/dL (70-110)
[2020-05-01 18:50] LABS: Bedside Glucose 178 mg/dL (70-110)
--- NOTE | 2020-05-01 19:54 | NURSING ---
unable to perform CAM d/t paralytic medication.
--- NOTE | 2020-05-01 21:08 | NURSING ---
update provided to noe Haywood
[2020-05-01] MEDS: Atorvastatin Calcium 40 MG Tablet GT (21:49)
[2020-05-02] VITALS (51 sets, daily range): BP systolic 69–191; BP diastolic 41–88; PULSE 82–135; RESP 12–43; TEMP 37.6–39.8; O2SAT 88–96
[2020-05-02] MEDS: Acetaminophen 650 MG/20 ML UDC GT ×2 (00:14→10:38)
[2020-05-02] MEDS: Propofol 10MG/Ml 1,000 MG/100 ML Bottle 9.9 MG CONT INF ×2 (01:05→06:00)
[2020-05-02] MEDS: Vital High Protein 1,000 ML 75 ML GT ×2 (02:32→16:24)
[2020-05-02 02:51] LABS: Bedside Glucose 165 mg/dL (70-110)
[2020-05-02] MEDS: Ipratropium/Albuterol Sulfate 3 ML AMPUL.NEB INHALATION ×3 (03:33→18:55)
[2020-05-02] MEDS: Senna/Docusate Sodium 1 Tablet 2 TABLET GT (04:48)
[2020-05-02] MEDS: Insulin Lispro 100 UNIT/ML INSULN.PEN SC ×3 (04:48→18:21)
[2020-05-02] MEDS: Furosemide 40 MG/4 ML Vial IV (04:48)
[2020-05-02 05:19] LABS: Absolute Lymphocyte Count 0.58 X10^3/uL (0.83-4.51); Absolute Neutrophil Count 15.7 X10^3/uL (2.0-7.7); Basophil# 0.05 X10^3/uL; Basophil% 0.3 % (0-1); Eosinophil# 0.04 X10^3/uL; Eosinophils% 0.2 % (0-5); Hematocrit 48.3 % (40-54); Hemoglobin 14.7 g/dL (13.0-16.5); Lymphocyte # 0.58 X10^3/ul (4.0); Lymphocyte % 3.3 % (19-41); Mean Corp Hgb Conc 30.4 g/dL (32-36); Mean Corpuscular Hgb 27.5 pg (27.0-32.0); Mean Corpuscular Volume 90.3 fL (80-94); Mean Platelet Vol. 10.1 fl (6.2-12.0); Monocyte# 0.97 X10^3/uL; Monocyte% 5.5 % (0-10); NRBC Flagged by Analyzer 0 % (0-5); Neutrophil # 15.67 X10^3/uL (2.7-7.7); Neutrophil % 89.7 % (47-70); POSITIVE DIFFERENTIAL YES; Platelet Count 344 K/mm3 (150-450); RBC Distribution Width CV 15.8 % (11.6-14.6); RBC Distribution Width SD 52.9 fl (35.1-43.9); Red Blood Count 5.35 M/mm3 (4.6-6.2); White Blood Count 17.5 K/mm3 (4.4-11.0)
[2020-05-02 05:21] LABS: Differential Indicated SCAN CRITERIA MET
--- NOTE | 2020-05-02 05:33 | PCM.PN.INT ---
Subjective: The patient was seen and examined at the bedside this morning. Events from the last 24 hours have been reviewed. The patient did have fevers overnight with a T-max of 101.4 ?F. The patient is currently documented to be overall net +3.4 L for the hospital admission. The patient remains on assist control mode of mechanical ventilation with an FiO2 requirement of 75% and PEEP of 15. Creatinine increased this morning to 1.72. Therefore, orders were given to hold Lasix. This morning, the patient cis atracurium was weaned off completely. The patient began to over breathe the ventilator. He was then transitioned to APRV to evaluate his clinical response to an alternative mode of mechanical ventilation. The patient has been tolerant of tube feeds to date. He remains on antimicrobials. He has completed his treatment course of remdesivir but remains on Decadron. Objective: The patient's most recent lab work, culture data and imaging studies have all been personally reviewed. Surface echocardiogram from October 2019 revealed moderate concentric LVH with an ejection fraction of 75%. Blood cultures are pending. Respiratory viral panel is pending. Sputum culture was positive for MSSA. General: - - Currently intubated, sedated and mechanically ventilated. HEENT: Atraumatic, Normocephalic Oral: No Gingival or Mucosal Lesions/ Ulcerations, - - Stable endotracheal and OG tubes. Neck: Supple, No Nodes, Trachea Midline Lungs: No rhonchi, No wheeze, No rales, Diminished, Tachypneic Cardiovascular: Normal S1, Normal S2, No murmurs, Tachycardic Abdomen: Bowel Sounds Present, Soft, Non Tender, Obese Extremities: No clubbing, No cyanosis, No edema, Cool, - - Lower extremities remain mottled. Skin: No breakdown Musculoskeletal: No Tenderness to Palpation of Joints or Extremities Lymphatic: No Cervical, Supraclavicular, or Inguinal Adenopathy Neurological: - - No focal neurological deficits. Remains sedated on the ventilator. Vital Signs Temp Pulse Resp BP Pulse Ox 101.2 F H 122 H 16 184/88 H 91 05/02/20 05:00 05/02/20 05:00 05/02/20 05:00 05/02/20 05:00 05/02/20 05:00 Oxygen Flow Rate (L/min) 60 Oxygen Delivery Method Mechanical Ventilator Weight: 363 lb 12.203 oz Body Mass Index (BMI) 49.0 Intake and Output for Last 24 Hours 04/30/20 05/01/20 05/02/20 23:59 23:59 23:59 Intake Total 3939.72 / 3987.71 4247.92 / 4346.24 931.95 / 931.95 Output Total 3095 / 3095 3760 / 3760 350 / 350 Balance 844.72 / 892.71 487.92 / 586.24 581.95 / 581.95 Labs (Last 48 Hours) 04/30/20 04/30/20 04/30/20 07:08 11:25 17:12 WBC RBC Hgb Hct MCV MCH MCHC RDW Std Deviation RDW Coeff of Citlaly Plt Count MPV Immature Gran % (Auto) Neut % (Auto) Lymph % (Auto) [place] % (Auto) Eos % (Auto) Baso % (Auto) Absolute Neuts (auto) Absolute Lymphs (auto) Nucleated RBC % Specimen Type ART Sample Site R Radial pH 7.28 L Bicarbonate Actual 28.6 H Total CO2 31 Base Excess 2 O2 Saturation 92 L O2 % 80 ABG pCO2 61.0 H ABG pO2 73 L Respiration Rate 16 O2 Delivery Device ET Tube Vent Mode AC Tidal Volume 540 POC PEEP 15 Sodium Potassium Chloride Carbon Dioxide Anion Gap BUN Creatinine Estim Creat Clear Calc Est GFR (MDRD) Af Amer Est GFR (MDRD) Non-Af BUN/Creatinine Ratio Glucose Calcium Total Bilirubin AST ALT Alkaline Phosphatase Total Protein Albumin Globulin Albumin/Globulin Ratio POC Glucose 168 H 181 H 04/30/20 05/01/20 05/01/20 23:28 03:55 03:55 WBC 15.8 H RBC 5.41 Hgb 14.9 Hct 48.9 MCV 90.4 MCH 27.5 MCHC 30.5 L RDW Std Deviation 51.7 H RDW Coeff of Citlaly 15.7 H Plt Count 320 MPV 9.9 Immature Gran % (Auto) 1.900 H Neut % (Auto) 90.6 H Lymph % (Auto) 2.2 L [place] % (Auto) 4.9 Eos % (Auto) 0.1 Baso % (Auto) 0.3 Absolute Neuts (auto) 14.3 H Absolute Lymphs (auto) 0.34 L Nucleated RBC % 0 Specimen Type Sample Site pH Bicarbonate Actual Total CO2 Base Excess O2 Saturation O2 % ABG pCO2 ABG pO2 Respiration Rate O2 Delivery Device Vent Mode Tidal Volume POC PEEP Sodium 140 Potassium 4.9 Chloride 109 H Carbon Dioxide 29.0 Anion Gap 2 L BUN 52 H Creatinine 1.47 H Estim Creat Clear Calc 52.79 Est GFR (MDRD) Af Amer 61 Est GFR (MDRD) Non-Af 51 L BUN/Creatinine Ratio 35.4 H Glucose 171 H Calcium 8.6 Total Bilirubin 0.40 AST 27 ALT 33 Alkaline Phosphatase 82 Total Protein 7.0 Albumin 2.3 L Globulin 4.7 H Albumin/Globulin Ratio 0.5 L POC Glucose 162 H 05/01/20 05/01/20 05/01/20 05:32 11:41 16:57 WBC RBC Hgb Hct MCV MCH MCHC RDW Std Deviation RDW Coeff of Citlaly Plt Count MPV Immature Gran % (Auto) Neut % (Auto) Lymph % (Auto) [place] % (Auto) Eos % (Auto) Baso % (Auto) Absolute Neuts (auto) Absolute Lymphs (auto) Nucleated RBC % Specimen Type Sample Site pH Bicarbonate Actual Total CO2 Base Excess O2 Saturation O2 % ABG pCO2 ABG pO2 Respiration Rate O2 Delivery Device Vent Mode Tidal Volume POC PEEP Sodium Potassium Chloride Carbon Dioxide Anion Gap BUN Creatinine Estim Creat Clear Calc Est GFR (MDRD) Af Amer Est GFR (MDRD) Non-Af BUN/Creatinine Ratio Glucose Calcium Total Bilirubin AST ALT Alkaline Phosphatase Total Protein Albumin Globulin Albumin/Globulin Ratio POC Glucose 160 H 180 H 178 H 05/01/20 05/02/20 05/02/20 23:41 05:10 05:10 WBC 17.5 H RBC 5.35 Hgb 14.7 Hct 48.3 MCV 90.3 MCH 27.5 MCHC 30.4 L RDW Std Deviation 52.9 H RDW Coeff of Citlaly 15.8 H Plt Count 344 MPV 10.1 Immature Gran % (Auto) 1.000 H Neut % (Auto) 89.7 H Lymph % (Auto) 3.3 L [place] % (Auto) 5.5 Eos % (Auto) 0.2 Baso % (Auto) 0.3 Absolute Neuts (auto) 15.7 H Absolute Lymphs (auto) 0.58 L Nucleated RBC % 0 Specimen Type Sample Site pH Bicarbonate Actual Total CO2 Base Excess O2 Saturation O2 % ABG pCO2 ABG pO2 Respiration Rate O2 Delivery Device Vent Mode Tidal Volume POC PEEP Sodium Pending Potassium Pending Chloride Pending Carbon Dioxide Pending Anion Gap Pending BUN Pending Creatinine Pending Estim Creat Clear Calc Est GFR (MDRD) Af Amer Pending Est GFR (MDRD) Non-Af Pending BUN/Creatinine Ratio Pending Glucose Pending Calcium Pending Total Bilirubin Pending AST Pending ALT Pending Alkaline Phosphatase Pending Total Protein Pending Albumin Pending Globulin Albumin/Globulin Ratio POC Glucose 165 H Microbiology 04/26/20 00:40 Blood Culture (Wb) - Anticubital Left Blood Culture - Final No growth in 5 days. 04/25/20 21:13 Blood Culture (Wb) - Right Forearm Blood Culture - Final No growth in 5 days. 04/29/20 10:00 Sputum, Induced/Lukens Gram Stain - Final 04/29/20 10:00 Sputum, Induced/Lukens Respiratory Culture - Final Staphylococcus aureus Clinical Impression(s) from Imaging Studies Chest X-Ray 04/25/20 20:54 IMPRESSION: 1. Vascular congestion and interstitial edema, new since the prior study. Electronically Signed: Eduardo Figueroa MD ([facility]) at 21:50 EST , Service support , Chest X-Ray 04/28/20 07:45 IMPRESSION: Stable exam. Vascular congestion with interstitial edema favoring pulmonary edema although pneumonia including viral causes also possible. Electronically Signed: Eduardo Figueroa MD ([facility]) at 8:06 EST , Service support , Chest X-Ray 04/29/20 08:31 IMPRESSION: 1. Suboptimal placement of endotracheal tube with tip terminating at the first rib. Recommend advancing 4-5 cm. 2. Worsening congestion with interstitial edema favoring pulmonary edema although pneumonia including viral causes also possible. Electronically Signed: Eduardo Figueroa MD ([facility]) at 9:39 EST , Service support , Chest X-Ray 04/29/20 08:52 IMPRESSION: 1. Persistent suboptimal placement of endotracheal tube with tip terminating at the first rib. Recommend advancing 4-5 cm. 2. Worsening vascular congestion with interstitial edema favoring pulmonary edema although pneumonia (including viral causes) also possible. Electronically Signed: Eduardo Figueroa MD ([facility]) at 9:41 EST , Service support , Chest X-Ray 04/29/20 09:50 IMPRESSION: 1. Endotracheal tube in satisfactory position with tip 3.5 cm above the yisel 2. Less conspicuous (since earlier today) vascular congestion with interstitial edema favoring pulmonary edema although pneumonia (including viral causes) also possible. Electronically Signed: Eduardo Figueroa MD ([facility]) at 10:20 EST , Service support , Chest X-Ray 04/29/20 10:11 IMPRESSION: 1. Endotracheal tube terminates with tip 2.2 cm above the yisel 2. Similar vascular congestion with interstitial edema favoring pulmonary edema although pneumonia (including viral causes) also possible. Electronically Signed: Eduardo Figueroa MD ([facility]) at 10:35 EST , Service support , Medical Necessity - Tobacco Use Smoking Status: Never smoker Assessment/Plan All Active Problems Acute respiratory failure with hypoxia (Acute) COVID-19 (Acute) RECOMMENDATIONS: 1. Continue fentanyl and propofol for sedation. Wean patient from cis atracurium this morning. 2. Once weaned from paralytic, the patient will be trialed on APRV mode of mechanical ventilation. Arterial blood gas will be obtained. 3. Continue tube feeds as tolerated. 4. Continue antimicrobials per ID recommendations. 5. Hold Lasix given ALBERTO. 6. Continue systemic anticoagulation with Eliquis. 7. Continue Decadron as ordered to complete treatment course. 8. Continue appropriate GI prophylaxis. IMPRESSIONS: 1. Acute hypoxemic respiratory failure secondary to ARDS due to COVID-19/MSSA pneumonia The patient was initially diagnosed 1 week prior to hospital admission. Although attempts were made to utilize high flow oxygen and noninvasive positive pressure ventilatory support, the patient continued to decompensate from a respiratory perspective, requiring transfer to ICU and subsequent intubation on April 29. The patient has gone on to develop fulminant ARDS with high ventilator requirements. The patient has completed a treatment course of remdesivir and will remain on Decadron. The patient will remain on appropriate antimicrobials well per ID recommendations. The patient's paralytic will be weaned this morning and the patient will be trialed on APRV mode of mechanical ventilation. Repeat arterial blood gas will be obtained. Diuretics have been placed on hold due to development of renal insufficiency. Continue tube feeds as tolerated. 2. Obesity/hypertension/hyperlipidemia/paroxysmal atrial fibrillation/coronary artery disease/GERD Complicates care, management, recovery and prognosis. Continue home medications as indicated. TIME: 35 minutes of critical care time, inclusive of procedures, was spent addressing the patient's acute hypoxemic respiratory failure secondary to ARDS due to COVID-19 pneumonia, paroxysmal atrial fibrillation, coronary artery disease, review of all data and collaboration with care team. ([id number]) [id number] Critical care first hour
[2020-05-02 05:36] LABS: ALB/GLOB Ratio 0.4 RATIO (0.9-2.4); AST(SGOT) 28 U/L (15-37); Alanine Aminotransfer ALT/SGPT 30 U/L (16-61); Albumin, Serum 2.1 g/dL (3.2-5.0); Alkaline Phosphatase 73 U/L (45-117); Anion Gap 5 (5-15); BUN 72 mg/dL (7-18); BUN/Creat Ratio 41.9 RATIO (10-20); Calcium,Total 8.8 mg/dL (8.5-10.1); Chloride 108 mmol/L (98-107); Creatinine, Serum 1.72 mg/dL (0.70-1.30); EST Glomerular Filtration Rate 42 mL/min (>60); Est Glom Filt Rate - Afr Amer 51 mL/min (>60); Estimated Creatinine Clearance 45.12 ml/min; Globulin 4.9 g/dL (2.2-4.2); Glucose 169 mg/dL (74-106); Potassium 5.1 mmol/L (3.5-5.1); Sodium Level 140 mmol/L (136-145)
[2020-05-02 05:41] LABS: Bedside Glucose 151 mg/dL (70-110)
[2020-05-02] MEDS: TITRATION PARAMETER CHANGE 1 EACH IV (05:45)
[2020-05-02] MEDS: Metoprolol Tartrate 5 MG/5 ML Vial IV (05:51)
[2020-05-02 06:31] LABS: Phosphorus 3.2 mg/dL (2.5-4.9)
[2020-05-02] MEDS: hydrALAZINE 20 MG/ML Vial 10 MG IV (08:12)
--- NOTE | 2020-05-02 08:46 | PN_ITS ---
Patient Problems: Active and Suspected Problems Acute respiratory failure with hypoxia (Acute) COVID-19 (Acute) Subjective: Intubated and sedated as well as paralyzed, he did have fevers overnight but otherwise no new issues Vitals/I&O's: Vital Signs Temp Pulse Resp BP Pulse Ox 101.6 F H 118 H 43 H 177/77 H 89 05/02/20 06:45 05/02/20 08:12 05/02/20 07:53 05/02/20 08:12 05/02/20 07:53 Oxygen Flow Rate (L/min) 60 Oxygen Delivery Method Mechanical Ventilator Weight: 363 lb 12.203 oz Body Mass Index (BMI) 49.0 Intake and Output for Last 24 Hours 04/30/20 05/01/20 05/02/20 23:59 23:59 23:59 Intake Total 3939.72 / 3987.71 4247.92 / 4346.24 1200.15 / 1200.15 Output Total 3095 / 3095 3760 / 3760 350 / 350 Balance 844.72 / 892.71 487.92 / 586.24 850.15 / 850.15 General: - - Intubated and sedated HEENT: Atraumatic, PERRLA, Normocephalic Oral: Dry Mucosa Neck: Supple, No JVD Lungs: Normal air movement, No rhonchi, No wheeze, No rales, Diminished Cardiovascular: Tachycardic, Regular Rhythm, Normal S1, Normal S2 Abdomen: Soft, Non-Distended, No Hepato-splenomegaly Extremities: No edema, Capillary Refill Less than 3 Seconds, - - Mottled appearance of the lower extremities Skin: No rashes, No breakdown Neurological: - - Intubated and sedated Psych/Mental Status: - - Intubated and sedated Microbiology Past 72 Hours 04/26/20 00:40 Blood Culture (Wb) - Anticubital Left Blood Culture - Final No growth in 5 days. 04/25/20 21:13 Blood Culture (Wb) - Right Forearm Blood Culture - Final No growth in 5 days. 04/29/20 10:00 Sputum, Induced/Lukens Gram Stain - Final 04/29/20 10:00 Sputum, Induced/Lukens Respiratory Culture - Final Staphylococcus aureus 04/29/20 10:00 Mucosa - Nasopharyngeal Respiratory Panel (PCR) - Final Laboratory Results 05/01/20 11:41: POC Glucose 180 H 05/01/20 16:57: POC Glucose 178 H 05/01/20 23:41: POC Glucose 165 H 05/02/20 04:41: POC Glucose 151 H 05/02/20 05:10: WBC 17.5 H, RBC 5.35, Hgb 14.7, Hct 48.3, MCV 90.3, MCH 27.5, MCHC 30.4 L, RDW Std Deviation 52.9 H, RDW Coeff of Citlaly 15.8 H, Plt Count 344, MPV 10.1, Immature Gran % (Auto) 1.000 H, Neut % (Auto) 89.7 H, Lymph % (Auto) 3.3 L, [place] % (Auto) 5.5, Eos % (Auto) 0.2, Baso % (Auto) 0.3, Absolute Neuts (auto) 15.7 H, Absolute Lymphs (auto) 0.58 L, Nucleated RBC % 0 05/02/20 05:10: Sodium 140, Potassium 5.1, Chloride 108 H, Carbon Dioxide 27.0, Anion Gap 5, BUN 72 H, Creatinine 1.72 H, Estim Creat Clear Calc 45.12, Est GFR (MDRD) Af Amer 51 L, Est GFR (MDRD) Non-Af 42 L, BUN/Creatinine Ratio 41.9 H, Glucose 169 H, Calcium 8.8, Total Bilirubin 0.30, AST 28, ALT 30, Alkaline Phosphatase 73, Total Protein 7.0, Albumin 2.1 L, Globulin 4.9 H, Albumin/Globulin Ratio 0.4 L 05/02/20 05:10: Phosphorus 3.2, Magnesium 3.0 H Current Medications Acetaminophen (Acetaminophen 650 Mg/20 Ml Udc) 650 mg GT Q6H PRN PRN PRN Reason: Pain Score 1-10/Temp > 100.7 F Last Admin: 05/02/20 00:14 Dose: 650 mg Documented by: Albuterol Sulfate (Albuterol Sulfate 18 Gm Inhaler (200 Puffs)) 2 puff IH Q4H PRN PRN PRN Reason: Shortness of breath, wheezing Last Admin: 04/27/20 01:30 Dose: 2 puff Documented by: Albuterol/Ipratropium (Ipratropium/Albuterol Sulfate 3 Ml Ampul.Neb) 3 ml INHALATION Q6HWA.RT [facility] Last Admin: 05/02/20 03:33 Dose: 3 ml Documented by: Apixaban (Apixaban 5 Mg Tablet) 5 mg GT BID [facility] Last Admin: 05/01/20 21:49 Dose: 5 mg Documented by: Aspirin (Aspirin 81 Mg Tab.Chew) 81 mg GT DAILY [facility] Last Admin: 05/01/20 08:11 Dose: 81 mg Documented by: Atorvastatin Calcium (Atorvastatin Calcium 40 Mg Tablet) 40 mg GT QHS [facility] Last Admin: 05/01/20 21:49 Dose: 40 mg Documented by: Bupropion HCl (Bupropion 100 Mg Tablet) 150 mg PO BID [facility] Last Admin: 05/01/20 21:49 Dose: 150 mg Documented by: Chlorhexidine Gluconate (Chlorhexidine 15 Ml) 15 ml PO BID [facility] Last Admin: 05/01/20 21:49 Dose: 15 ml Documented by: Dexamethasone (Dexamethasone 4 Mg Tablet) 6 mg GT DAILY [facility] Stop: 05/05/20 10:01 Last Admin: 05/01/20 08:10 Dose: 6 mg Documented by: Hydralazine HCl (Hydralazine 20 Mg/Ml Vial) 10 mg IV Q4H PRN PRN PRN Reason: systolic >160 Last Admin: 05/02/20 08:12 Dose: 10 mg Documented by: Sodium Chloride () 250 mls @ 15 mls/hr IV .[id number] PRN PRN Reason: Saline Flush Last Infusion: 05/01/20 19:18 Dose: Infused Documented by: Sodium Chloride () 250 mls @ 15 mls/hr IV .[id number] PRN PRN Reason: Additional IVPB Infusion Cisatracurium Besylate 100 mg/ (Sodium Chloride) 250 mls @ 49.5 mls/hr CONT INF .Q5H4M [facility]; Protocol Last Titration: 05/02/20 07:30 Dose: 0 mcg/kg/min, 0 mls/hr Documented by: Fentanyl Citrate 1,000 mcg/ (Sodium Chloride) 100 mls @ 5 mls/hr CONT INF .Q20H [facility]; Protocol Last Titration: 05/02/20 07:00 Dose: 75 mcg/hr, 7.5 mls/hr Documented by: Cefepime HCl 2 gm/ Sodium (Chloride) 100 mls @ 200 mls/hr IV Q8 [facility] Last Infusion: 05/02/20 06:36 Dose: Infused Documented by: Propofol (Diprivan) 1,000 mg in 100 mls @ 9.9 mls/hr CONT INF .Q10H7M [facility]; Protocol Last Titration: 05/02/20 07:00 Dose: 10 mcg/kg/min, 9.9 mls/hr Documented by: Pantoprazole Sodium 40 mg/ (Sodium Chloride) 110 mls @ 330 mls/hr IV Q12 [facility] Last Infusion: 05/01/20 22:13 Dose: Infused Documented by: Enteral Nutritional Formula (Vital High Protein) 1,000 mls @ 75 mls/hr GT .[id number] [facility] Last Admin: 05/02/20 02:32 Dose: 75 mls/hr Documented by: Insulin Human Lispro (Insulin Lispro 100 Unit/Ml Insuln.Pen) 0 unit SC Q6 [facility]; Protocol Last Admin: 05/02/20 04:48 Dose: 1 u Documented by: Losartan Potassium (Losartan Potassium 100 Mg Tablet) 100 mg GT DAILY [facility] Last Admin: 05/01/20 08:11 Dose: 100 mg Documented by: Metoprolol Tartrate (Metoprolol Tartrate 50 Mg Tablet) 50 mg GT BID [facility] Last Admin: 05/01/20 21:49 Dose: 50 mg Documented by: Metoprolol Tartrate (Metoprolol Tartrate 5 Mg/5 Ml Vial) 5 mg IV Q4H PRN PRN Reason: systolic >160 Last Admin: 05/02/20 05:51 Dose: 5 mg Documented by: Miscellaneous Information (Inhaler, Assist Devices 1 Each Spacer) 1 each INHALATION PRN PRN PRN Reason: WITH ALBUTEROL MDI Last Admin: 04/27/20 16:41 Dose: 1 each Documented by: Ondansetron HCl (Ondansetron 4 Mg/2 Ml Vial) 4 mg IV Q8H PRN PRN PRN Reason: NAUSEA/VOMITING Senna/Docusate Sodium (Senna/Docusate Sodium 1 Tablet) 2 tablet GT BID PRN PRN PRN Reason: Constipation Last Admin: 05/02/20 04:48 Dose: 2 tablet Documented by: Sodium Chloride (0.9% Saline Lock 10 Ml Syringe) 10 - 40 ml IV UD PRN PRN Reason: SALINE FLUSH Last Admin: 05/01/20 21:50 Dose: 40 ml Documented by: STROKE Vital Signs/Narrative: Vital Signs Temp Pulse Resp BP BP Pulse Ox 05/02/20 08:12 118 H 177/77 H 05/02/20 07:53 121 H 43 H 89 05/02/20 07:42 120 H 38 H 89 05/02/20 07:24 123 H 24 H 90 05/02/20 06:45 101.6 F H 116 H 16 183/79 H 90 05/02/20 06:30 118 H 16 191/80 H 90 05/02/20 06:00 101.4 F H 117 H 16 172/74 H 90 05/02/20 05:51 127 H 05/02/20 05:00 101.2 F H 122 H 16 184/88 H 91 Medical Necessity - Tobacco Use Smoking Status: Never smoker Assessment/Plan All Active Problems Acute respiratory failure with hypoxia (Acute) COVID-19 (Acute) 1. Acute hypoxic respiratory failure secondary to COVID-19 pneumonia/ALBERTO on CKD 3 -Developed symptoms on 04/14/2020 and intubated on 04/29/2020 -Currently on a PEEP of 15 with an FiO2 of 75% -Lasix as needed depending on kidney function -Continue with Decadron, completed remdesivir -Initiate ID assistance -Continue with cefepime, vancomycin was discontinued on May 01, 2020 -Continue to monitor renal function -We will need to continue monitoring his blood sugar secondary to the Decadron, adjust insulin as necessary 2. CAD status post CABG/HTN/HLD/paroxysmal A. fib/morbid obesity -We will continue to monitor his blood pressures and renal function and adjust Lasix dosing as necessary -Continue with Eliquis for his A. fib -Continue with aspirin, Lipitor, losartan for G-tube -Continue with metoprolol -Once extubated and alert can discuss lifestyle modifications since his BMI is 49 DVT: Eliquis Inpatient E&M: 29688 Subs Hosp L2
[2020-05-02 09:41] LABS: Allen Test Positive; Base Excess 3 mmol/L (-2 to +2); Bicarbonate 29.7 mmol/L (22-26); Blood Gas Specimen Type ART; FI02 75; Mode BiLevel; O2 Delivery Device Adult Vent; PO2 66 mmHG (75-100); SITE R Radial; SO2 89 % (95-99); Total Carbon Dioxide 32 mmol/L; pCO2 62.7 mmHg (35-45); pH 7.28 (7.35-7.45)
[2020-05-02] MEDS: APIXABAN 5 MG TABLET GT ×2 (10:37→20:00)
[2020-05-02] MEDS: Metoprolol Tartrate 50 MG Tablet GT ×2 (10:38→19:57)
[2020-05-02] MEDS: Aspirin 81 MG TAB.CHEW GT (10:38)
[2020-05-02] MEDS: buPROPion 100 MG Tablet 150 MG PO ×2 (10:38→20:00)
[2020-05-02] MEDS: dexAMETHasone 4 MG Tablet 6 MG GT (10:38)
[2020-05-02] MEDS: Chlorhexidine 15 ML PO ×2 (10:45→19:57)
[2020-05-02] MEDS: Propofol 10MG/Ml 1,000 MG/100 ML Bottle 39.6 MG CONT INF (11:05)
[2020-05-02 15:46] LABS: Bedside Glucose 169 mg/dL (70-110)
[2020-05-02] MEDS: Propofol 10MG/Ml 1,000 MG/100 ML Bottle 5 MG CONT INF (18:06)
[2020-05-02] MEDS: Atorvastatin Calcium 40 MG Tablet GT (19:59)
[2020-05-02 22:46] LABS: Bedside Glucose 206 mg/dL (70-110)
[2020-05-03] VITALS (37 sets, daily range): BP systolic 91–157; BP diastolic 41–97; PULSE 81–106; RESP 12–29; TEMP 36.6–37.6; O2SAT 90–100
[2020-05-03] MEDS: Insulin Lispro 100 UNIT/ML INSULN.PEN SC ×5 (00:02→23:12)
[2020-05-03] MEDS: Propofol 10MG/Ml 1,000 MG/100 ML Bottle 9.9 MG CONT INF (02:22)
[2020-05-03 04:06] LABS: Bedside Glucose 195 mg/dL (70-110)
--- NOTE | 2020-05-03 05:42 | PCM.PN.INT ---
Subjective: The patient was seen and examined at the bedside this morning. Events from the last 24 hours have been reviewed. The patient is currently afebrile, hemodynamically stable and maintaining appropriate oxygen saturations on APRV with a P high of 31, T high of 4.5 and FiO2 requirement of 50%. The patient is currently documented to be overall net +4.7 L for the hospital admission. The patient remains sedated on both propofol and fentanyl. Arterial blood gases improved this morning. Creatinine has improved to 1.57 this morning. Objective: The patient's most recent lab work, culture data and imaging studies have all been personally reviewed. Surface echocardiogram from October 2019 revealed moderate concentric LVH with an ejection fraction of 75%. Blood cultures are pending. Respiratory viral panel is pending. Sputum culture was positive for MSSA. General: - - Remains intubated, sedated and mechanically ventilated. HEENT: Atraumatic, Normocephalic Oral: No Gingival or Mucosal Lesions/ Ulcerations, - - Stable endotracheal and OG tubes. Neck: Supple, No Nodes, Trachea Midline Lungs: No rhonchi, No wheeze, No rales, Diminished Cardiovascular: Regular rate, Regular Rhythm, Normal S1, Normal S2, No murmurs Abdomen: Bowel Sounds Present, Soft, Non Tender, Obese Extremities: No clubbing, No cyanosis, No edema, Cool, - - Mottled lower extremities Skin: No breakdown Musculoskeletal: No Tenderness to Palpation of Joints or Extremities Lymphatic: No Cervical, Supraclavicular, or Inguinal Adenopathy Neurological: - - No focal neurological deficits. Remains sedated on the ventilator. CAM+ Vital Signs Temp Pulse Resp BP Pulse Ox 98.8 F 101 H 14 112/69 95 05/03/20 05:00 05/03/20 05:00 05/03/20 05:00 05/03/20 05:00 05/03/20 05:00 Oxygen Flow Rate (L/min) 60 Oxygen Delivery Method Mechanical Ventilator Weight: 367 lb 8.169 oz Body Mass Index (BMI) 49.0 Intake and Output for Last 24 Hours 05/01/20 05/02/20 05/03/20 23:59 23:59 23:59 Intake Total 4247.92 / 4346.24 3228.78 / 3815.78 786.10 / 786.10 Output Total 3760 / 3760 1625 / 2150 525 / 525 Balance 487.92 / 586.24 1603.78 / 1665.78 261.10 / 261.10 Labs (Last 48 Hours) 05/01/20 05/01/20 05/01/20 05:32 11:41 16:57 WBC RBC Hgb Hct MCV MCH MCHC RDW Std Deviation RDW Coeff of Citlaly Plt Count MPV Immature Gran % (Auto) Neut % (Auto) Lymph % (Auto) [place] % (Auto) Eos % (Auto) Baso % (Auto) Absolute Neuts (auto) Absolute Lymphs (auto) Nucleated RBC % Specimen Type Sample Site pH Bicarbonate Actual Total CO2 Base Excess O2 Saturation O2 % ABG pCO2 ABG pO2 Philip Test O2 Delivery Device Vent Mode Sodium Potassium Chloride Carbon Dioxide Anion Gap BUN Creatinine Estim Creat Clear Calc Est GFR (MDRD) Af Amer Est GFR (MDRD) Non-Af BUN/Creatinine Ratio Glucose Calcium Phosphorus Magnesium Total Bilirubin AST ALT Alkaline Phosphatase Total Protein Albumin Globulin Albumin/Globulin Ratio POC Glucose 160 H 180 H 178 H 05/01/20 05/02/20 05/02/20 23:41 04:41 05:10 WBC 17.5 H RBC 5.35 Hgb 14.7 Hct 48.3 MCV 90.3 MCH 27.5 MCHC 30.4 L RDW Std Deviation 52.9 H RDW Coeff of Citlaly 15.8 H Plt Count 344 MPV 10.1 Immature Gran % (Auto) 1.000 H Neut % (Auto) 89.7 H Lymph % (Auto) 3.3 L [place] % (Auto) 5.5 Eos % (Auto) 0.2 Baso % (Auto) 0.3 Absolute Neuts (auto) 15.7 H Absolute Lymphs (auto) 0.58 L Nucleated RBC % 0 Specimen Type Sample Site pH Bicarbonate Actual Total CO2 Base Excess O2 Saturation O2 % ABG pCO2 ABG pO2 Philip Test O2 Delivery Device Vent Mode Sodium Potassium Chloride Carbon Dioxide Anion Gap BUN Creatinine Estim Creat Clear Calc Est GFR (MDRD) Af Amer Est GFR (MDRD) Non-Af BUN/Creatinine Ratio Glucose Calcium Phosphorus Magnesium Total Bilirubin AST ALT Alkaline Phosphatase Total Protein Albumin Globulin Albumin/Globulin Ratio POC Glucose 165 H 151 H 05/02/20 05/02/20 05/02/20 05:10 05:10 09:33 WBC RBC Hgb Hct MCV MCH MCHC RDW Std Deviation RDW Coeff of Citlaly Plt Count MPV Immature Gran % (Auto) Neut % (Auto) Lymph % (Auto) [place] % (Auto) Eos % (Auto) Baso % (Auto) Absolute Neuts (auto) Absolute Lymphs (auto) Nucleated RBC % Specimen Type ART Sample Site R Radial pH 7.28 L Bicarbonate Actual 29.7 H Total CO2 32 Base Excess 3 H O2 Saturation 89 L O2 % 75 ABG pCO2 62.7 H ABG pO2 66 L Philip Test Positive O2 Delivery Device Adult Vent Vent Mode BiLevel Sodium 140 Potassium 5.1 Chloride 108 H Carbon Dioxide 27.0 Anion Gap 5 BUN 72 H Creatinine 1.72 H Estim Creat Clear Calc 45.12 Est GFR (MDRD) Af Amer 51 L Est GFR (MDRD) Non-Af 42 L BUN/Creatinine Ratio 41.9 H Glucose 169 H Calcium 8.8 Phosphorus 3.2 Magnesium 3.0 H Total Bilirubin 0.30 AST 28 ALT 30 Alkaline Phosphatase 73 Total Protein 7.0 Albumin 2.1 L Globulin 4.9 H Albumin/Globulin Ratio 0.4 L POC Glucose 05/02/20 05/02/20 05/03/20 12:48 18:10 00:01 WBC RBC Hgb Hct MCV MCH MCHC RDW Std Deviation RDW Coeff of Citlaly Plt Count MPV Immature Gran % (Auto) Neut % (Auto) Lymph % (Auto) [place] % (Auto) Eos % (Auto) Baso % (Auto) Absolute Neuts (auto) Absolute Lymphs (auto) Nucleated RBC % Specimen Type Sample Site pH Bicarbonate Actual Total CO2 Base Excess O2 Saturation O2 % ABG pCO2 ABG pO2 [place] Test O2 Delivery Device Vent Mode Sodium Potassium Chloride Carbon Dioxide Anion Gap BUN Creatinine Estim Creat Clear Calc Est GFR (MDRD) Af Amer Est GFR (MDRD) Non-Af BUN/Creatinine Ratio Glucose Calcium Phosphorus Magnesium Total Bilirubin AST ALT Alkaline Phosphatase Total Protein Albumin Globulin Albumin/Globulin Ratio POC Glucose 169 H 206 H 195 H Microbiology 04/26/20 00:40 Blood Culture (Wb) - Anticubital Left Blood Culture - Final No growth in 5 days. 04/25/20 21:13 Blood Culture (Wb) - Right Forearm Blood Culture - Final No growth in 5 days. 04/29/20 10:00 Sputum, Induced/Lukens Gram Stain - Final 04/29/20 10:00 Sputum, Induced/Lukens Respiratory Culture - Final Staphylococcus aureus Clinical Impression(s) from Imaging Studies Chest X-Ray 04/25/20 20:54 IMPRESSION: 1. Vascular congestion and interstitial edema, new since the prior study. Electronically Signed: Eduardo Figueroa MD ([facility]) at 21:50 EST , Service support , Chest X-Ray 04/28/20 07:45 IMPRESSION: Stable exam. Vascular congestion with interstitial edema favoring pulmonary edema although pneumonia including viral causes also possible. Electronically Signed: Eduardo Figueroa MD ([facility]) at 8:06 EST , Service support , Chest X-Ray 04/29/20 08:31 IMPRESSION: 1. Suboptimal placement of endotracheal tube with tip terminating at the first rib. Recommend advancing 4-5 cm. 2. Worsening congestion with interstitial edema favoring pulmonary edema although pneumonia including viral causes also possible. Electronically Signed: Eduardo Figueroa MD ([facility]) at 9:39 EST , Service support , Chest X-Ray 04/29/20 08:52 IMPRESSION: 1. Persistent suboptimal placement of endotracheal tube with tip terminating at the first rib. Recommend advancing 4-5 cm. 2. Worsening vascular congestion with interstitial edema favoring pulmonary edema although pneumonia (including viral causes) also possible. Electronically Signed: Eduardo Figueroa MD ([facility]) at 9:41 EST , Service support , Chest X-Ray 04/29/20 09:50 IMPRESSION: 1. Endotracheal tube in satisfactory position with tip 3.5 cm above the yisel 2. Less conspicuous (since earlier today) vascular congestion with interstitial edema favoring pulmonary edema although pneumonia (including viral causes) also possible. Electronically Signed: Eduardo Figueroa MD ([facility]) at 10:20 EST , Service support , Chest X-Ray 04/29/20 10:11 IMPRESSION: 1. Endotracheal tube terminates with tip 2.2 cm above the yisel 2. Similar vascular congestion with interstitial edema favoring pulmonary edema although pneumonia (including viral causes) also possible. Electronically Signed: Eduardo Figueroa MD ([facility]) at 10:35 EST , Service support , Medical Necessity - Tobacco Use Smoking Status: Never smoker Assessment/Plan All Active Problems Acute respiratory failure with hypoxia (Acute) COVID-19 (Acute) RECOMMENDATIONS: 1. Continue fentanyl and propofol for sedation. Start twice daily scheduled Seroquel today. 2. Continue APRV mode of mechanical ventilation and wean FiO2 as tolerated. Decrease P high and stretch T high as tolerated today. 3. Continue tube feeds as tolerated. 4. Continue antimicrobials per ID recommendations. 5. Give IV Lasix 40 mg x 1 today. 6. Continue systemic anticoagulation with Eliquis. 7. Continue Decadron as ordered to complete treatment course. 8. Continue appropriate GI prophylaxis. IMPRESSIONS: 1. Acute hypoxemic respiratory failure secondary to ARDS due to COVID-19/MSSA pneumonia The patient was initially diagnosed 1 week prior to hospital admission. Although attempts were made to utilize high flow oxygen and noninvasive positive pressure ventilatory support, the patient continued to decompensate from a respiratory perspective, requiring transfer to ICU and subsequent intubation on April 29. The patient has gone on to develop fulminant ARDS with high ventilator requirements. The patient has completed a treatment course of remdesivir and will remain on Decadron. The patient will remain on appropriate antimicrobials well per ID recommendations. The patient is currently tolerating APRV mode of mechanical ventilation which will be continued. We will continue to wean as tolerated. Continue tube feeds. Administer IV Lasix x1 today. 2. Obesity/hypertension/hyperlipidemia/paroxysmal atrial fibrillation/coronary artery disease/GERD Complicates care, management, recovery and prognosis. Continue home medications as indicated. TIME: 34 minutes of critical care time, inclusive of procedures, was spent addressing the patient's acute hypoxemic respiratory failure secondary to ARDS due to COVID-19 pneumonia, paroxysmal atrial fibrillation, coronary artery disease, review of all data and collaboration with care team. [id number]) [id number] Critical care first hour
[2020-05-03] MEDS: Vital High Protein 1,000 ML 75 ML GT ×2 (05:45→23:12)
[2020-05-03 06:05] LABS: Absolute Lymphocyte Count 0.54 X10^3/uL (0.83-4.51); Absolute Neutrophil Count 13.8 X10^3/uL (2.0-7.7); Basophil# 0.02 X10^3/uL; Basophil% 0.1 % (0-1); Eosinophil# 0.01 X10^3/uL; Eosinophils% 0.1 % (0-5); Hemoglobin 13.8 g/dL (13.0-16.5); Lymphocyte # 0.54 X10^3/ul (4.0); Lymphocyte % 3.5 % (19-41); Mean Corpuscular Hgb 26.8 pg (27.0-32.0); Mean Corpuscular Volume 89.3 fL (80-94); Mean Platelet Vol. 10.4 fl (6.2-12.0); Monocyte# 0.81 X10^3/uL; Monocyte% 5.3 % (0-10); NRBC Flagged by Analyzer 0 % (0-5); Neutrophil # 13.79 X10^3/uL (2.7-7.7); POSITIVE DIFFERENTIAL YES; Platelet Count 281 K/mm3 (150-450); RBC Distribution Width CV 15.9 % (11.6-14.6); RBC Distribution Width SD 52.1 fl (35.1-43.9); Red Blood Count 5.15 M/mm3 (4.6-6.2); White Blood Count 15.3 K/mm3 (4.4-11.0)
[2020-05-03 06:06] LABS: Allen Test Positive; Base Excess 2 mmol/L (-2 to +2); Bicarbonate 27.4 mmol/L (22-26); Blood Gas Specimen Type ART; FI02 50; Mode BiLevel; O2 Delivery Device Adult Vent; PEEP 0; PO2 69 mmHG (75-100); RR 12; SITE L Radial; SO2 93 % (95-99); Total Carbon Dioxide 29 mmol/L; pCO2 47.1 mmHg (35-45); pH 7.37 (7.35-7.45)
[2020-05-03 06:16] LABS: Anion Gap 6 (5-15); BUN 94 mg/dL (7-18); BUN/Creat Ratio 59.9 RATIO (10-20); Calcium,Total 8.6 mg/dL (8.5-10.1); Chloride 109 mmol/L (98-107); Creatinine, Serum 1.57 mg/dL (0.70-1.30); EST Glomerular Filtration Rate 47 mL/min (>60); Est Glom Filt Rate - Afr Amer 57 mL/min (>60); Estimated Creatinine Clearance 49.43 ml/min; Glucose 160 mg/dL (74-106); Sodium Level 143 mmol/L (136-145)
[2020-05-03 06:22] LABS: Differential Indicated SCAN CRITERIA MET
[2020-05-03 06:39] LABS: Differential Comment SCANNED
[2020-05-03] MEDS: Propofol 10MG/Ml 1,000 MG/100 ML Bottle 15 MG CONT INF ×2 (06:45→20:27)
[2020-05-03] MEDS: Ipratropium/Albuterol Sulfate 3 ML AMPUL.NEB INHALATION ×3 (06:47→18:58)
[2020-05-03 06:55] LABS: Bedside Glucose 168 mg/dL (70-110)
[2020-05-03] MEDS: TITRATION PARAMETER CHANGE 1 EACH IV (07:31)
[2020-05-03] MEDS: Furosemide 40 MG/4 ML Vial IV (08:12)
--- NOTE | 2020-05-03 08:35 | PCM.PN.HOSP ---
Patient Problems: Active and Suspected Problems Acute respiratory failure with hypoxia (Acute) COVID-19 (Acute) Subjective: Intubated and sedated, on 50% FiO2 Vitals/I&O's: Vital Signs Temp Pulse Resp BP Pulse Ox 98.9 F 88 15 131/78 H 92 05/03/20 06:00 05/03/20 06:47 05/03/20 06:47 05/03/20 06:00 05/03/20 06:45 Oxygen Flow Rate (L/min) 60 Oxygen Delivery Method Mechanical Ventilator Weight: 367 lb 8.169 oz Body Mass Index (BMI) 49.0 Intake and Output for Last 24 Hours 05/01/20 05/02/20 05/03/20 23:59 23:59 23:59 Intake Total 4247.92 / 4346.24 3228.78 / 3815.78 1228.82 / 1228.82 Output Total 3760 / 3760 1625 / 2150 1175 / 1175 Balance 487.92 / 586.24 1603.78 / 1665.78 53.82 / 53.82 General: - - Intubated and sedated HEENT: Atraumatic, PERRLA, Normocephalic Oral: Dry Mucosa Neck: Supple, No JVD Lungs: Normal air movement, No rhonchi, No wheeze, No rales, Diminished Cardiovascular: Regular rate, Regular Rhythm, Normal S1, Normal S2 Abdomen: Soft, Non-Distended, No Hepato-splenomegaly Extremities: No edema, Capillary Refill Less than 3 Seconds, - - Mottled appearance of the lower extremities Skin: No rashes, No breakdown Neurological: - - Intubated and sedated Psych/Mental Status: - - Intubated and sedated Microbiology Past 72 Hours 04/26/20 00:40 Blood Culture (Wb) - Anticubital Left Blood Culture - Final No growth in 5 days. 04/25/20 21:13 Blood Culture (Wb) - Right Forearm Blood Culture - Final No growth in 5 days. 04/29/20 10:00 Sputum, Induced/Lukens Gram Stain - Final 04/29/20 10:00 Sputum, Induced/Lukens Respiratory Culture - Final Staphylococcus aureus Laboratory Results 05/02/20 09:33: Specimen Type ART, Sample Site R Radial, pH 7.28 L, Bicarbonate Actual 29.7 H, Total CO2 32, Base Excess 3 H, O2 Saturation 89 L, O2 % 75, ABG pCO2 62.7 H, ABG pO2 66 L, Philip Test Positive, O2 Delivery Device Adult Vent, Vent Mode BiLevel 05/02/20 12:48: POC Glucose 169 H 05/02/20 18:10: POC Glucose 206 H 05/03/20 00:01: POC Glucose 195 H 05/03/20 03:45: WBC 15.3 H, RBC 5.15, Hgb 13.8, Hct 46.0, MCV 89.3, MCH 26.8 L, MCHC 30.0 L, RDW Std Deviation 52.1 H, RDW Coeff of Citlaly 15.9 H, Plt Count 281, MPV 10.4, Immature Gran % (Auto) 1.000 H, Neut % (Auto) 90.0 H, Lymph % (Auto) 3.5 L, Todd % (Auto) 5.3, Eos % (Auto) 0.1, Baso % (Auto) 0.1, Absolute Neuts (auto) 13.8 H, Absolute Lymphs (auto) 0.54 L, Nucleated RBC % 0, Differential Comment SCANNED 05/03/20 03:45: Sodium 143, Potassium 5.0, Chloride 109 H, Carbon Dioxide 28.0, Anion Gap 6, BUN 94 H, Creatinine 1.57 H, Estim Creat Clear Calc 49.43, Est GFR (MDRD) Af Amer 57 L, Est GFR (MDRD) Non-Af 47 L, BUN/Creatinine Ratio 59.9 H, Glucose 160 H, Calcium 8.6 05/03/20 05:42: POC Glucose 168 H 05/03/20 06:01: Specimen Type ART, Sample Site L Radial, pH 7.37, Bicarbonate Actual 27.4 H, Total CO2 29, Base Excess 2, O2 Saturation 93 L, O2 % 50, ABG pCO2 47.1 H, ABG pO2 69 L, Philip Test Positive, Respiration Rate 12, O2 Delivery Device Adult Vent, Vent Mode BiLevel, POC PEEP 0 Current Medications Acetaminophen (Acetaminophen 650 Mg/20 Ml Udc) 650 mg GT Q6H PRN PRN PRN Reason: Pain Score 1-10/Temp > 100.7 F Last Admin: 05/02/20 10:38 Dose: 650 mg Documented by: Albuterol Sulfate (Albuterol Sulfate 18 Gm Inhaler (200 Puffs)) 2 puff IH Q4H PRN PRN PRN Reason: Shortness of breath, wheezing Last Admin: 04/27/20 01:30 Dose: 2 puff Documented by: Albuterol/Ipratropium (Ipratropium/Albuterol Sulfate 3 Ml Ampul.Neb) 3 ml INHALATION Q6HWA.RT [facility] Last Admin: 05/03/20 06:47 Dose: 3 ml Documented by: Apixaban (Apixaban 5 Mg Tablet) 5 mg GT BID [facility] Last Admin: 05/02/20 20:00 Dose: 5 mg Documented by: Aspirin (Aspirin 81 Mg Tab.Chew) 81 mg GT DAILY [facility] Last Admin: 05/02/20 10:38 Dose: 81 mg Documented by: Atorvastatin Calcium (Atorvastatin Calcium 40 Mg Tablet) 40 mg GT QHS [facility] Last Admin: 05/02/20 19:59 Dose: 40 mg Documented by: Bupropion HCl (Bupropion 100 Mg Tablet) 150 mg PO BID [facility] Last Admin: 05/02/20 20:00 Dose: 150 mg Documented by: Chlorhexidine Gluconate (Chlorhexidine 15 Ml) 15 ml PO BID [facility] Last Admin: 05/02/20 19:57 Dose: 15 ml Documented by: Dexamethasone (Dexamethasone 4 Mg Tablet) 6 mg GT DAILY [facility] Stop: 05/05/20 10:01 Last Admin: 05/02/20 10:38 Dose: 6 mg Documented by: Hydralazine HCl (Hydralazine 20 Mg/Ml Vial) 10 mg IV Q4H PRN PRN PRN Reason: systolic >160 Last Admin: 05/02/20 08:12 Dose: 10 mg Documented by: Sodium Chloride () 250 mls @ 15 mls/hr IV .[id number] PRN PRN Reason: Saline Flush Last Admin: 05/02/20 21:22 Dose: 15 mls/hr Documented by: Sodium Chloride () 250 mls @ 15 mls/hr IV .[id number] PRN PRN Reason: Additional IVPB Infusion Fentanyl Citrate 1,000 mcg/ (Sodium Chloride) 100 mls @ 5 mls/hr CONT INF .Q20H [facility]; Protocol Last Admin: 05/03/20 06:45 Dose: 125 mcg/hr, 12.5 mls/hr Documented by: Cefepime HCl 2 gm/ Sodium (Chloride) 100 mls @ 200 mls/hr IV Q8 [facility] Last Infusion: 05/03/20 06:16 Dose: Infused Documented by: Propofol (Diprivan) 1,000 mg in 100 mls @ 10.002 mls/hr CONT INF .Q10H [facility]; Protocol Last Admin: 05/03/20 06:45 Dose: 15 mcg/kg/min, 15 mls/hr Documented by: Pantoprazole Sodium 40 mg/ (Sodium Chloride) 110 mls @ 330 mls/hr IV Q12 [facility] Last Infusion: 05/02/20 21:54 Dose: Infused Documented by: Enteral Nutritional Formula (Vital High Protein) 1,000 mls @ 75 mls/hr GT .[id number] [facility] Last Admin: 05/03/20 05:45 Dose: 75 mls/hr Documented by: Insulin Human Lispro (Insulin Lispro 100 Unit/Ml Insuln.Pen) 0 unit SC Q6 [facility]; Protocol Last Admin: 05/03/20 05:46 Dose: 1 u Documented by: Losartan Potassium (Losartan Potassium 100 Mg Tablet) 100 mg GT DAILY [facility] Last Admin: 05/02/20 09:53 Dose: Not Given Documented by: Metoprolol Tartrate (Metoprolol Tartrate 50 Mg Tablet) 50 mg GT BID [facility] Last Admin: 05/02/20 19:57 Dose: 50 mg Documented by: Metoprolol Tartrate (Metoprolol Tartrate 5 Mg/5 Ml Vial) 5 mg IV Q4H PRN PRN Reason: systolic >160 Last Admin: 05/02/20 05:51 Dose: 5 mg Documented by: Miscellaneous Information (Inhaler, Assist Devices 1 Each Spacer) 1 each INHALATION PRN PRN PRN Reason: WITH ALBUTEROL MDI Last Admin: 04/27/20 16:41 Dose: 1 each Documented by: Ondansetron HCl (Ondansetron 4 Mg/2 Ml Vial) 4 mg IV Q8H PRN PRN PRN Reason: NAUSEA/VOMITING Quetiapine Fumarate (Quetiapine 25 Mg Tablet) 25 mg PO BID [facility] Senna/Docusate Sodium (Senna/Docusate Sodium 1 Tablet) 2 tablet GT BID PRN PRN PRN Reason: Constipation Last Admin: 05/02/20 04:48 Dose: 2 tablet Documented by: Sodium Chloride (0.9% Saline Lock 10 Ml Syringe) 10 - 40 ml IV UD PRN PRN Reason: SALINE FLUSH Last Admin: 05/01/20 21:50 Dose: 40 ml Documented by: STROKE Vital Signs/Narrative: Vital Signs Temp Pulse Resp BP Pulse Ox 05/03/20 06:47 88 15 05/03/20 06:45 86 14 92 05/03/20 06:00 98.9 F 89 131/78 H 93 05/03/20 05:00 98.8 F 101 H 14 112/69 95 Medical Necessity - Tobacco Use Smoking Status: Never smoker Assessment/Plan All Active Problems Acute respiratory failure with hypoxia (Acute) COVID-19 (Acute) 1. Acute hypoxic respiratory failure secondary to COVID-19 pneumonia/ALBERTO on CKD 3 -Developed symptoms on 04/14/2020 and intubated on 04/29/2020 -He was able to be decreased on his FiO2 from 75% yesterday to 50% today -Lasix as needed depending on kidney function -Continue with Decadron, completed remdesivir -Initiate ID assistance -Continue with cefepime, vancomycin was discontinued on May 01, 2020 -Continue to monitor renal function -We will need to continue monitoring his blood sugar secondary to the Decadron, adjust insulin as necessary 2. CAD status post CABG/HTN/HLD/paroxysmal A. fib/morbid obesity -We will continue to monitor his blood pressures and renal function and adjust Lasix dosing as necessary -Continue with Eliquis for his A. fib -Continue with aspirin, Lipitor, losartan for G-tube -Continue with metoprolol -Once extubated and alert can discuss lifestyle modifications since his BMI is 49 DVT: Eliquis Inpatient E&M: 19394 Subs Hosp L2
[2020-05-03] MEDS: Aspirin 81 MG TAB.CHEW GT (10:45)
[2020-05-03] MEDS: dexAMETHasone 4 MG Tablet 6 MG GT (10:45)
[2020-05-03] MEDS: Metoprolol Tartrate 50 MG Tablet GT ×2 (10:45→23:11)
[2020-05-03] MEDS: APIXABAN 5 MG TABLET GT ×2 (10:45→23:11)
[2020-05-03] MEDS: QUEtiapine 25 MG Tablet PO ×2 (10:46→23:11)
[2020-05-03] MEDS: buPROPion 100 MG Tablet 150 MG PO ×2 (10:46→23:11)
[2020-05-03] MEDS: Chlorhexidine 15 ML PO ×2 (10:47→23:11)
[2020-05-03] MEDS: Losartan Potassium 50 MG Tablet GT (12:38)
[2020-05-03] MEDS: Propofol 10MG/Ml 1,000 MG/100 ML Bottle 10 MG CONT INF (13:27)
[2020-05-03] MEDS: Senna/Docusate Sodium 1 Tablet 2 TABLET GT (15:42)
[2020-05-03 18:16] LABS: Bedside Glucose 154 mg/dL (70-110)
[2020-05-03 23:06] LABS: Bedside Glucose 160 mg/dL (70-110)
[2020-05-03] MEDS: Atorvastatin Calcium 40 MG Tablet GT (23:10)
[2020-05-03 23:55] LABS: Bedside Glucose 163 mg/dL (70-110)
[2020-05-04] VITALS (40 sets, daily range): BP systolic 96–199; BP diastolic 50–92; PULSE 86–132; RESP 14–38; TEMP 37.3–38.2; O2SAT 84–94
[2020-05-04] MEDS: Propofol 10MG/Ml 1,000 MG/100 ML Bottle 15 MG CONT INF ×4 (02:34→16:06)
[2020-05-04] MEDS: 0.9% Saline Lock 10 ML Syringe IV (04:13)
[2020-05-04 04:36] LABS: Absolute Lymphocyte Count 0.56 X10^3/uL (0.83-4.51); Absolute Neutrophil Count 14.6 X10^3/uL (2.0-7.7); Basophil# 0.02 X10^3/uL; Basophil% 0.1 % (0-1); Eosinophil# 0.01 X10^3/uL; Eosinophils% 0.1 % (0-5); Lymphocyte # 0.56 X10^3/ul (4.0); Lymphocyte % 3.5 % (19-41); Mean Corpuscular Hgb 27.3 pg (27.0-32.0); Mean Corpuscular Volume 88.2 fL (80-94); Mean Platelet Vol. 10.5 fl (6.2-12.0); Monocyte# 0.72 X10^3/uL; Monocyte% 4.5 % (0-10); NRBC Flagged by Analyzer 0 % (0-5); Neutrophil # 14.62 X10^3/uL (2.7-7.7); Neutrophil % 90.6 % (47-70); POSITIVE DIFFERENTIAL YES; Platelet Count 305 K/mm3 (150-450); RBC Distribution Width CV 15.8 % (11.6-14.6); RBC Distribution Width SD 51.2 fl (35.1-43.9); Red Blood Count 4.76 M/mm3 (4.6-6.2); White Blood Count 16.1 K/mm3 (4.4-11.0)
[2020-05-04 04:41] LABS: Differential Indicated SCAN CRITERIA MET
[2020-05-04 05:07] LABS: Anion Gap 7 (5-15); BUN 127 mg/dL (7-18); BUN/Creat Ratio 64.1 RATIO (10-20); Calcium,Total 8.8 mg/dL (8.5-10.1); Chloride 108 mmol/L (98-107); Creatinine, Serum 1.98 mg/dL (0.70-1.30); EST Glomerular Filtration Rate 36 mL/min (>60); Est Glom Filt Rate - Afr Amer 43 mL/min (>60); Estimated Creatinine Clearance 39.19 ml/min; Glucose 155 mg/dL (74-106); Sodium Level 142 mmol/L (136-145)
[2020-05-04 05:36] LABS: Bedside Glucose 141 mg/dL (70-110)
[2020-05-04] MEDS: TITRATION PARAMETER CHANGE 1 EACH IV (05:38)
--- NOTE | 2020-05-04 05:40 | PN_ITS ---
Subjective: The patient was seen and examined at the bedside this morning. Events from the last 24 hours have been reviewed. The patient currently has some low-grade fevers but remains hemodynamically stable. The patient remains on APRV with a P high of 29, T high of 4.5 and FiO2 of 50%. BUN and creatinine have increased overnight to 127 and 1.98, respectively. The patient is currently documented to be overall net +6 L for the hospital admission. The patient has already completed his treatment course of remdesivir and remains on Decadron, therapeuti c Eliquis and antimicrobials. The patient is currently tolerating tube feeds without issue. Objective: The patient's most recent lab work, culture data and imaging studies have all been personally reviewed. Surface echocardiogram from October 2019 revealed moderate concentric LVH with an ejection fraction of 75%. Blood cultures are pending. Respiratory viral panel is pending. Sputum culture was positive for MSSA. General: - - Remains intubated, sedated and mechanically ventilated. HEENT: Atraumatic, PERRLA, Normocephalic Oral: Moist Mucosa, - - Endotracheal and OG tubes in place Neck: Supple, No Nodes, Trachea Midline Lungs: No rhonchi, No wheeze, No rales, Diminished Cardiovascular: Normal S1, Normal S2, No murmurs, Tachycardic Abdomen: Bowel Sounds Present, Soft, Non Tender, Obese Extremities: No clubbing, No cyanosis, No edema, Cool, - - Mottled lower extremities. Right knee is swollen and erythematous. Skin: - - No significant change from previous. Musculoskeletal: No Muscle Wasting Lymphatic: No Cervical, Supraclavicular, or Inguinal Adenopathy Neurological: - - No focal neurological deficits. Remains sedated on the ventilator. RASS of -1. Arouses but will not follow simple commands. Vital Signs Temp Pulse Resp BP Pulse Ox 100.3 F H 103 H 26 H 147/76 H 93 05/04/20 05:00 05/04/20 05:15 05/04/20 05:15 05/04/20 05:00 05/04/20 05:15 Oxygen Flow Rate (L/min) 60 Oxygen Delivery Method Mechanical Ventilator Weight: 368 lb 2.751 oz Body Mass Index (BMI) 49.0 Intake and Output for Last 24 Hours 05/02/20 05/03/20 05/04/20 23:59 23:59 23:59 Intake Total 3228.78 / 3815.78 3729.78 / 3759.78 962.5 / 962.5 Output Total 1625 / 2150 2675 / 2675 450 / 450 Balance 1603.78 / 1665.78 1054.78 / 1084.78 512.5 / 512.5 Labs (Last 48 Hours) 05/02/20 05/02/20 05/02/20 04:41 05:10 09:33 WBC RBC Hgb Hct MCV MCH MCHC RDW Std Deviation RDW Coeff of Citlaly Plt Count MPV Immature Gran % (Auto) Neut % (Auto) Lymph % (Auto) Stafford % (Auto) Eos % (Auto) Baso % (Auto) Absolute Neuts (auto) Absolute Lymphs (auto) Nucleated RBC % Differential Comment Specimen Type ART Sample Site R Radial pH 7.28 L Bicarbonate Actual 29.7 H Total CO2 32 Base Excess 3 H O2 Saturation 89 L O2 % 75 ABG pCO2 62.7 H ABG pO2 66 L Philip Test Positive Respiration Rate O2 Delivery Device Adult Vent Vent Mode BiLevel POC PEEP Sodium Potassium Chloride Carbon Dioxide Anion Gap BUN Creatinine Estim Creat Clear Calc Est GFR (MDRD) Af Amer Est GFR (MDRD) Non-Af BUN/Creatinine Ratio Glucose Calcium Phosphorus 3.2 Magnesium 3.0 H POC Glucose 151 H 05/02/20 05/02/20 05/03/20 12:48 18:10 00:01 WBC RBC Hgb Hct MCV MCH MCHC RDW Std Deviation RDW Coeff of Citlaly Plt Count MPV Immature Gran % (Auto) Neut % (Auto) Lymph % (Auto) Stafford % (Auto) Eos % (Auto) Baso % (Auto) Absolute Neuts (auto) Absolute Lymphs (auto) Nucleated RBC % Differential Comment Specimen Type Sample Site pH Bicarbonate Actual Total CO2 Base Excess O2 Saturation O2 % ABG pCO2 ABG pO2 Philip Test Respiration Rate O2 Delivery Device Vent Mode POC PEEP Sodium Potassium Chloride Carbon Dioxide Anion Gap BUN Creatinine Estim Creat Clear Calc Est GFR (MDRD) Af Amer Est GFR (MDRD) Non-Af BUN/Creatinine Ratio Glucose Calcium Phosphorus Magnesium POC Glucose 169 H 206 H 195 H 05/03/20 05/03/20 05/03/20 03:45 03:45 05:42 WBC 15.3 H RBC 5.15 Hgb 13.8 Hct 46.0 MCV 89.3 MCH 26.8 L MCHC 30.0 L RDW Std Deviation 52.1 H RDW Coeff of Citlaly 15.9 H Plt Count 281 MPV 10.4 Immature Gran % (Auto) 1.000 H Neut % (Auto) 90.0 H Lymph % (Auto) 3.5 L Stafford % (Auto) 5.3 Eos % (Auto) 0.1 Baso % (Auto) 0.1 Absolute Neuts (auto) 13.8 H Absolute Lymphs (auto) 0.54 L Nucleated RBC % 0 Differential Comment SCANNED Specimen Type Sample Site pH Bicarbonate Actual Total CO2 Base Excess O2 Saturation O2 % ABG pCO2 ABG pO2 Philip Test Respiration Rate O2 Delivery Device Vent Mode POC PEEP Sodium 143 Potassium 5.0 Chloride 109 H Carbon Dioxide 28.0 Anion Gap 6 BUN 94 H Creatinine 1.57 H Estim Creat Clear Calc 49.43 Est GFR (MDRD) Af Amer 57 L Est GFR (MDRD) Non-Af 47 L BUN/Creatinine Ratio 59.9 H Glucose 160 H Calcium 8.6 Phosphorus Magnesium POC Glucose 168 H 05/03/20 05/03/20 05/03/20 06:01 12:36 17:36 WBC RBC Hgb Hct MCV MCH MCHC RDW Std Deviation RDW Coeff of Citlaly Plt Count MPV Immature Gran % (Auto) Neut % (Auto) Lymph % (Auto) Stafford % (Auto) Eos % (Auto) Baso % (Auto) Absolute Neuts (auto) Absolute Lymphs (auto) Nucleated RBC % Differential Comment Specimen Type ART Sample Site L Radial pH 7.37 Bicarbonate Actual 27.4 H Total CO2 29 Base Excess 2 O2 Saturation 93 L O2 % 50 ABG pCO2 47.1 H ABG pO2 69 L Philip Test Positive Respiration Rate 12 O2 Delivery Device Adult Vent Vent Mode BiLevel POC PEEP 0 Sodium Potassium Chloride Carbon Dioxide Anion Gap BUN Creatinine Estim Creat Clear Calc Est GFR (MDRD) Af Amer Est GFR (MDRD) Non-Af BUN/Creatinine Ratio Glucose Calcium Phosphorus Magnesium POC Glucose 154 H 160 H 05/03/20 05/04/20 05/04/20 23:09 04:03 04:03 WBC 16.1 H RBC 4.76 Hgb 13.0 Hct 42.0 MCV 88.2 MCH 27.3 MCHC 31.0 L RDW Std Deviation 51.2 H RDW Coeff of Citlaly 15.8 H Plt Count 305 MPV 10.5 Immature Gran % (Auto) 1.200 H Neut % (Auto) 90.6 H Lymph % (Auto) 3.5 L Stafford % (Auto) 4.5 Eos % (Auto) 0.1 Baso % (Auto) 0.1 Absolute Neuts (auto) 14.6 H Absolute Lymphs (auto) 0.56 L Nucleated RBC % 0 Differential Comment Specimen Type Sample Site pH Bicarbonate Actual Total CO2 Base Excess O2 Saturation O2 % ABG pCO2 ABG pO2 Philip Test Respiration Rate O2 Delivery Device Vent Mode POC PEEP Sodium 142 Potassium 5.0 Chloride 108 H Carbon Dioxide 27.0 Anion Gap 7 BUN 127 H* Creatinine 1.98 H Estim Creat Clear Calc 39.19 Est GFR (MDRD) Af Amer 43 L Est GFR (MDRD) Non-Af 36 L BUN/Creatinine Ratio 64.1 H Glucose 155 H Calcium 8.8 Phosphorus Magnesium POC Glucose 163 H 05/04/20 05:09 WBC RBC Hgb Hct MCV MCH MCHC RDW Std Deviation RDW Coeff of Citlaly Plt Count MPV Immature Gran % (Auto) Neut % (Auto) Lymph % (Auto) Stafford % (Auto) Eos % (Auto) Baso % (Auto) Absolute Neuts (auto) Absolute Lymphs (auto) Nucleated RBC % Differential Comment Specimen Type Sample Site pH Bicarbonate Actual Total CO2 Base Excess O2 Saturation O2 % ABG pCO2 ABG pO2 Philip Test Respiration Rate O2 Delivery Device Vent Mode POC PEEP Sodium Potassium Chloride Carbon Dioxide Anion Gap BUN Creatinine Estim Creat Clear Calc Est GFR (MDRD) Af Amer Est GFR (MDRD) Non-Af BUN/Creatinine Ratio Glucose Calcium Phosphorus Magnesium POC Glucose 141 H Clinical Impression(s) from Imaging Studies Chest X-Ray 04/25/20 20:54 IMPRESSION: 1. Vascular congestion and interstitial edema, new since the prior study. Electronically Signed: Eduardo Figueroa MD ([facility]) at 21:50 EST , Service support , Chest X-Ray 04/28/20 07:45 IMPRESSION: Stable exam. Vascular congestion with interstitial edema favoring pulmonary edema although pneumonia including viral causes also possible. Electronically Signed: Eduardo Figueroa MD ([facility]) at 8:06 EST , Service support , Chest X-Ray 04/29/20 08:31 IMPRESSION: 1. Suboptimal placement of endotracheal tube with tip terminating at the first rib. Recommend advancing 4-5 cm. 2. Worsening congestion with interstitial edema favoring pulmonary edema although pneumonia including viral causes also possible. Electronically Signed: Eduardo Figueroa MD ([facility]) at 9:39 EST , Service support , Chest X-Ray 04/29/20 08:52 IMPRESSION: 1. Persistent suboptimal placement of endotracheal tube with tip terminating at the first rib. Recommend advancing 4-5 cm. 2. Worsening vascular congestion with interstitial edema favoring pulmonary edema although pneumonia (including viral causes) also possible. Electronically Signed: Eduardo Figueroa MD ([facility]) at 9:41 EST , Service support , Chest X-Ray 04/29/20 09:50 IMPRESSION: 1. Endotracheal tube in satisfactory position with tip 3.5 cm above the yisel 2. Less conspicuous (since earlier today) vascular congestion with interstitial edema favoring pulmonary edema although pneumonia (including viral causes) also possible. Electronically Signed: Eduardo Figueroa MD ([facility]) at 10:20 EST , Service support , Chest X-Ray 04/29/20 10:11 IMPRESSION: 1. Endotracheal tube terminates with tip 2.2 cm above the yisel 2. Similar vascular congestion with interstitial edema favoring pulmonary edema although pneumonia (including viral causes) also possible. Electronically Signed: Eduardo Figueroa MD ([facility]) at 10:35 EST , Service support , Medical Necessity - Tobacco Use Smoking Status: Never smoker Assessment/Plan All Active Problems Acute respiratory failure with hypoxia (Acute) COVID-19 (Acute) RECOMMENDATIONS: 1. Continue fentanyl and propofol for sedation, along with scheduled Seroquel. 2. Obtain nephrology consultation, given ALBERTO. 3. Continue APRV mode of mechanical ventilation and wean FiO2 as tolerated. Continue to decrease P high and stretch T high as tolerated. 4. Continue tube feeds as tolerated. 5. Continue antimicrobials per ID recommendations. 6. Continue systemic anticoagulation with Eliquis. 7. Continue Decadron as ordered to complete treatment course. 8. Continue appropriate GI prophylaxis. IMPRESSIONS: 1. Acute hypoxemic respiratory failure secondary to ARDS due to COVID-19/MSSA pneumonia The patient was initially diagnosed 1 week prior to hospital admission. Although attempts were made to utilize high flow oxygen and noninvasive positive pressure ventilatory support, the patient continued to decompensate from a respiratory perspective, requiring transfer to ICU and subsequent intubation on April 29. The patient has gone on to develop fulminant ARDS with high ventilator requirements. The patient has completed a treatment course of remdesivir and will remain on Decadron. The patient will remain on appropriate antimicrobials well per ID recommendations. The patient is currently tolerating APRV mode of mechanical ventilation which will be continued. We will continue to wean as tolerated. Continue tube feeds. 2. ALBERTO on CKD Possibly prerenal in etiology. Will obtain nephrology consultation. Continue to hold diuretics. 3. Obesity/hypertension/hyperlipidemia/paroxysmal atrial fibrillation/coronary artery disease/GERD Complicates care, management, recovery and prognosis. Continue home medications as indicated. TIME: 37 minutes of critical care time, independent of procedures, was spent addressing the patient's acute hypoxemic respiratory failure secondary to ARDS due to COVID-19 pneumonia, paroxysmal atrial fibrillation, coronary artery disease, ALBERTO, review of all data and collaboration with care team. [id number]) [id number] Critical care first hour
[2020-05-04 05:43] LABS: Differential Comment SCANNED
[2020-05-04 06:05] LABS: Base Excess 2 mmol/L (-2 to +2); Bicarbonate 27.9 mmol/L (22-26); Blood Gas Specimen Type ART; FI02 50; Mode BiLevel; O2 Delivery Device Adult Vent; PO2 73 mmHG (75-100); RR 12; SITE R Brach; SO2 93 % (95-99); Total Carbon Dioxide 30 mmol/L; pH 7.35 (7.35-7.45)
[2020-05-04] MEDS: Ipratropium/Albuterol Sulfate 3 ML AMPUL.NEB INHALATION ×3 (06:39→19:08)
--- NOTE | 2020-05-04 07:20 | CPS ---
Trialed pt on AC but he did not tolerate it, he became agitated, increased use of accessory muscles, increased RR, HR & BP. Changed back to APRV settings. It took about 5 minutes for pt to calm down and return to previous breathing.
[2020-05-04] MEDS: Acetaminophen 650 MG/20 ML UDC GT (07:57)
--- NOTE | 2020-05-04 08:48 | PCM.PN.HOSP ---
Patient Problems: Active and Suspected Problems Acute respiratory failure with hypoxia (Acute) COVID-19 (Acute) Subjective: He has had a worsening of his renal function since yesterday with creatinine today of 1.98. He was trialed on NEDA as his oxygen requirement increased on APRV however he did not tolerate that and was placed back on APRV today Vitals/I&O's: Vital Signs Temp Pulse Resp BP Pulse Ox 100.5 F H 112 H 24 H 156/79 H 92 05/04/20 07:00 05/04/20 08:00 05/04/20 07:20 05/04/20 07:00 05/04/20 07:20 Oxygen Flow Rate (L/min) 60 Oxygen Delivery Method Mechanical Ventilator Weight: 368 lb 2.751 oz Body Mass Index (BMI) 49.0 Intake and Output for Last 24 Hours 05/02/20 05/03/20 05/04/20 23:59 23:59 23:59 Intake Total 3228.78 / 3815.78 3729.78 / 3759.78 1258.50 / 1258.50 Output Total 1625 / 2150 2675 / 2675 750 / 750 Balance 1603.78 / 1665.78 1054.78 / 1084.78 508.50 / 508.50 General: - - Intubated and sedated HEENT: Atraumatic, PERRLA, Normocephalic Oral: Dry Mucosa Neck: Supple, No JVD Lungs: Normal air movement, No rhonchi, No wheeze, No rales, Diminished Cardiovascular: Regular rate, Regular Rhythm, Normal S1, Normal S2 Abdomen: Soft, Non-Distended, No Hepato-splenomegaly Extremities: No edema, Capillary Refill Less than 3 Seconds, - - Mottled appearance of the lower extremities Skin: No rashes, No breakdown Neurological: - - Intubated and sedated Psych/Mental Status: - - Intubated and sedated Microbiology Past 72 Hours 04/26/20 00:40 Blood Culture (Wb) - Anticubital Left Blood Culture - Final No growth in 5 days. 04/25/20 21:13 Blood Culture (Wb) - Right Forearm Blood Culture - Final No growth in 5 days. 04/29/20 10:00 Sputum, Induced/Lukens Gram Stain - Final 04/29/20 10:00 Sputum, Induced/Lukens Respiratory Culture - Final Staphylococcus aureus Laboratory Results 05/03/20 12:36: POC Glucose 154 H 05/03/20 17:36: POC Glucose 160 H 05/03/20 23:09: POC Glucose 163 H 05/04/20 04:03: WBC 16.1 H, RBC 4.76, Hgb 13.0, Hct 42.0, MCV 88.2, MCH 27.3, MCHC 31.0 L, RDW Std Deviation 51.2 H, RDW Coeff of Citlaly 15.8 H, Plt Count 305, MPV 10.5, Immature Gran % (Auto) 1.200 H, Neut % (Auto) 90.6 H, Lymph % (Auto) 3.5 L, [place] % (Auto) 4.5, Eos % (Auto) 0.1, Baso % (Auto) 0.1, Absolute Neuts (auto) 14.6 H, Absolute Lymphs (auto) 0.56 L, Nucleated RBC % 0, Differential Comment SCANNED 05/04/20 04:03: Sodium 142, Potassium 5.0, Chloride 108 H, Carbon Dioxide 27.0, Anion Gap 7, BUN 127 H*, Creatinine 1.98 H, Estim Creat Clear Calc 39.19, Est GFR (MDRD) Af Amer 43 L, Est GFR (MDRD) Non-Af 36 L, BUN/Creatinine Ratio 64.1 H, Glucose 155 H, Calcium 8.8 05/04/20 05:09: POC Glucose 141 H 05/04/20 05:58: Specimen Type ART, Sample Site R Brach, pH 7.35, Bicarbonate Actual 27.9 H, Total CO2 30, Base Excess 2, O2 Saturation 93 L, O2 % 50, ABG pCO2 51.0 H, ABG pO2 73 L, Respiration Rate 12, O2 Delivery Device Adult Vent, Vent Mode BiLevel Current Medications Acetaminophen (Acetaminophen 650 Mg/20 Ml Udc) 650 mg GT Q6H PRN PRN PRN Reason: Pain Score 1-10/Temp > 100.7 F Last Admin: 05/04/20 07:57 Dose: 650 mg Documented by: Albuterol Sulfate (Albuterol Sulfate 18 Gm Inhaler (200 Puffs)) 2 puff IH Q4H PRN PRN PRN Reason: Shortness of breath, wheezing Last Admin: 04/27/20 01:30 Dose: 2 puff Documented by: Albuterol/Ipratropium (Ipratropium/Albuterol Sulfate 3 Ml Ampul.Neb) 3 ml INHALATION Q6HWA.RT [facility] Last Admin: 05/04/20 06:39 Dose: 3 ml Documented by: Apixaban (Apixaban 5 Mg Tablet) 5 mg GT BID [facility] Last Admin: 05/03/20 23:11 Dose: 5 mg Documented by: Aspirin (Aspirin 81 Mg Tab.Chew) 81 mg GT DAILY [facility] Last Admin: 05/03/20 10:45 Dose: 81 mg Documented by: Atorvastatin Calcium (Atorvastatin Calcium 40 Mg Tablet) 40 mg GT QHS [facility] Last Admin: 05/03/20 23:10 Dose: 40 mg Documented by: Bupropion HCl (Bupropion 100 Mg Tablet) 150 mg PO BID [facility] Last Admin: 05/03/20 23:11 Dose: 150 mg Documented by: Chlorhexidine Gluconate (Chlorhexidine 15 Ml) 15 ml PO BID [facility] Last Admin: 05/03/20 23:11 Dose: 15 ml Documented by: Dexamethasone (Dexamethasone 4 Mg Tablet) 6 mg GT DAILY [facility] Stop: 05/05/20 10:01 Last Admin: 05/03/20 10:45 Dose: 6 mg Documented by: Hydralazine HCl (Hydralazine 20 Mg/Ml Vial) 10 mg IV Q4H PRN PRN PRN Reason: systolic >160 Last Admin: 05/02/20 08:12 Dose: 10 mg Documented by: Sodium Chloride () 250 mls @ 15 mls/hr IV .[id number] PRN PRN Reason: Saline Flush Last Infusion: 05/04/20 08:26 Dose: Infused Documented by: Sodium Chloride () 250 mls @ 15 mls/hr IV .[id number] PRN PRN Reason: Additional IVPB Infusion Fentanyl Citrate 1,000 mcg/ (Sodium Chloride) 100 mls @ 5 mls/hr CONT INF .Q20H [facility]; Protocol Last Titration: 05/04/20 08:00 Dose: 150 mcg/hr, 15 mls/hr Documented by: Cefepime HCl 2 gm/ Sodium (Chloride) 100 mls @ 200 mls/hr IV Q8 [facility] Last Infusion: 05/04/20 05:42 Dose: Infused Documented by: Propofol (Diprivan) 1,000 mg in 100 mls @ 10.02 mls/hr CONT INF .Q9H59M [facility]; Protocol Last Titration: 05/04/20 08:30 Dose: 20 mcg/kg/min, 20 mls/hr Documented by: Pantoprazole Sodium 40 mg/ (Sodium Chloride) 110 mls @ 330 mls/hr IV Q12 [facility] Last Infusion: 05/04/20 00:29 Dose: Infused Documented by: Enteral Nutritional Formula (Vital High Protein) 1,000 mls @ 75 mls/hr GT .[id number] [facility] Last Admin: 05/03/20 23:12 Dose: 75 mls/hr Documented by: Insulin Human Lispro (Insulin Lispro 100 Unit/Ml Insuln.Pen) 0 unit SC Q6 [facility]; Protocol Last Admin: 05/04/20 05:10 Dose: Not Given Documented by: Metoprolol Tartrate (Metoprolol Tartrate 50 Mg Tablet) 50 mg GT BID [facility] Last Admin: 05/03/20 23:11 Dose: 50 mg Documented by: Metoprolol Tartrate (Metoprolol Tartrate 5 Mg/5 Ml Vial) 5 mg IV Q4H PRN PRN Reason: systolic >160 Last Admin: 05/02/20 05:51 Dose: 5 mg Documented by: Miscellaneous Information (Inhaler, Assist Devices 1 Each Spacer) 1 each INHALATION PRN PRN PRN Reason: WITH ALBUTEROL MDI Last Admin: 04/27/20 16:41 Dose: 1 each Documented by: Ondansetron HCl (Ondansetron 4 Mg/2 Ml Vial) 4 mg IV Q8H PRN PRN PRN Reason: NAUSEA/VOMITING Quetiapine Fumarate (Quetiapine 25 Mg Tablet) 25 mg PO BID [facility] Last Admin: 05/03/20 23:11 Dose: 25 mg Documented by: Senna/Docusate Sodium (Senna/Docusate Sodium 1 Tablet) 2 tablet GT BID PRN PRN PRN Reason: Constipation Last Admin: 05/03/20 15:42 Dose: 2 tablet Documented by: Sodium Chloride (0.9% Saline Lock 10 Ml Syringe) 10 - 40 ml IV UD PRN PRN Reason: SALINE FLUSH Last Admin: 05/04/20 04:13 Dose: 10 ml Documented by: STROKE Vital Signs/Narrative: Vital Signs Temp Pulse Resp BP Pulse Ox 05/04/20 08:00 112 H 05/04/20 07:20 112 H 24 H 92 05/04/20 07:15 132 H 38 H 84 05/04/20 07:00 100.5 F H 109 H 22 H 156/79 H 93 05/04/20 06:39 105 H 23 H 93 05/04/20 06:00 100.3 F H 106 H 20 H 119/76 94 05/04/20 05:15 103 H 26 H 93 05/04/20 05:00 100.3 F H 103 H 17 147/76 H 93 Medical Necessity - Tobacco Use Smoking Status: Never smoker Assessment/Plan All Active Problems Acute respiratory failure with hypoxia (Acute) COVID-19 (Acute) 1. Acute hypoxic respiratory failure secondary to COVID-19 pneumonia/ALBERTO on CKD 3 -Developed symptoms on 04/14/2020 and intubated on 04/29/2020 -FiO2 of 50% on the vent APRV -Lasix as needed depending on kidney function, will consult nephrology as his BUN today climbed to 127 has had a worsening in his creatinine from 1.57 yesterday to 1.98 today -Continue with Decadron, completed remdesivir -Initiate ID assistance -Continue with cefepime, vancomycin was discontinued on May 01, 2020 -Continue to monitor renal function -We will need to continue monitoring his blood sugar secondary to the Decadron, adjust insulin as necessary 2. CAD status post CABG/HTN/HLD/paroxysmal A. fib/morbid obesity -We will continue to monitor his blood pressures and renal function and adjust Lasix dosing as necessary -Continue with Eliquis for his A. fib -Continue with aspirin, Lipitor, losartan for G-tube -Continue with metoprolol -Once extubated and alert can discuss lifestyle modifications since his BMI is 49 3. Anxiety/depression/agitation -We will continue with his home Wellbutrin -He has Seroquel added DVT: Eliquis Inpatient E&M: [id number] Subs Hosp L2
[2020-05-04] MEDS: Senna/Docusate Sodium 1 Tablet 2 TABLET GT ×2 (10:25→23:15)
[2020-05-04] MEDS: Metoprolol Tartrate 50 MG Tablet GT ×2 (10:26→23:15)
[2020-05-04] MEDS: buPROPion 100 MG Tablet 150 MG PO ×2 (10:26→23:15)
[2020-05-04] MEDS: APIXABAN 5 MG TABLET GT ×2 (10:26→23:14)
[2020-05-04] MEDS: QUEtiapine 25 MG Tablet PO ×2 (10:26→23:15)
[2020-05-04] MEDS: Chlorhexidine 15 ML PO ×2 (10:28→23:14)
[2020-05-04] MEDS: Aspirin 81 MG TAB.CHEW GT (10:28)
[2020-05-04] MEDS: Polyethylene Glycol 3350 17 GM PACKET GT (10:28)
[2020-05-04] MEDS: dexAMETHasone 4 MG Tablet 6 MG GT (10:28)
[2020-05-04] MEDS: Vital High Protein 1,000 ML 75 ML GT (12:25)
[2020-05-04 13:26] LABS: Bedside Glucose 138 mg/dL (70-110)
--- NOTE | 2020-05-04 16:58 | CON.PCM_ITS ---
Consultation - Renal 05/04/20 PCP/ Referring MD: Requesting physician: [] Primary care physician: Dr. Keyon Mccain DO Reason for Consultation:: alberto - History of Present Illness History of Present Illness: The patient is a 69 year old M with past medical history as below who presented to the emergency room with gradual worsening shortness of breath. She had shortness of breath worsening for about 1 week prior to admission and cough and was found to have COVID-19 pneumonia. He was first diagnosed on April 19. He was also noticed that he had a pulse ox of 86 to 88% on room air at home and presented to the emergency room. He had no fever or chills. He was placed on BiPAP on admission creatinine was 1.44 on admission. Scr increased to 1.98 today which prompted renal consult. losartan was stopped yesterday.The patient is intubated cannot do ROS. - Allergies Allergies: Allergies Penicillins Allergy (Verified 04/25/20 20:39) Unknown Sulfa (Sulfonamide Antibiotics) Allergy (Verified 04/25/20 20:39) Unknown warfarin [From Coumadin] Adverse Reaction (Verified 04/25/20 20:39) Unknown - Current Medications Current Medications: Current Medications Acetaminophen (Acetaminophen 650 Mg/20 Ml Udc) 650 mg GT Q6H PRN PRN PRN Reason: Pain Score 1-10/Temp > 100.7 F Last Admin: 05/04/20 07:57 Dose: 650 mg Documented by: Albuterol Sulfate (Albuterol Sulfate 18 Gm Inhaler (200 Puffs)) 2 puff IH Q4H PRN PRN PRN Reason: Shortness of breath, wheezing Last Admin: 04/27/20 01:30 Dose: 2 puff Documented by: Albuterol/Ipratropium (Ipratropium/Albuterol Sulfate 3 Ml Ampul.Neb) 3 ml INHALATION Q6HWA.RT [facility] Last Admin: 05/04/20 13:30 Dose: 3 ml Documented by: Apixaban (Apixaban 5 Mg Tablet) 5 mg GT BID [facility] Last Admin: 05/04/20 10:26 Dose: 5 mg Documented by: Aspirin (Aspirin 81 Mg Tab.Chew) 81 mg GT DAILY [facility] Last Admin: 05/04/20 10:28 Dose: 81 mg Documented by: Atorvastatin Calcium (Atorvastatin Calcium 40 Mg Tablet) 40 mg GT QHS [facility] Last Admin: 05/03/20 23:10 Dose: 40 mg Documented by: Bupropion HCl (Bupropion 100 Mg Tablet) 150 mg PO BID [facility] Last Admin: 05/04/20 10:26 Dose: 150 mg Documented by: Chlorhexidine Gluconate (Chlorhexidine 15 Ml) 15 ml PO BID [facility] Last Admin: 05/04/20 10:28 Dose: 15 ml Documented by: Dexamethasone (Dexamethasone 4 Mg Tablet) 6 mg GT DAILY [facility] Stop: 05/05/20 10:01 Last Admin: 05/04/20 10:28 Dose: 6 mg Documented by: Hydralazine HCl (Hydralazine 20 Mg/Ml Vial) 10 mg IV Q4H PRN PRN PRN Reason: systolic >160 Last Admin: 05/02/20 08:12 Dose: 10 mg Documented by: Sodium Chloride () 250 mls @ 15 mls/hr IV .[id number] PRN PRN Reason: Saline Flush Last Infusion: 05/04/20 14:45 Dose: 15 mls/hr Documented by: Sodium Chloride () 250 mls @ 15 mls/hr IV .[id number] PRN PRN Reason: Additional IVPB Infusion Fentanyl Citrate 1,000 mcg/ (Sodium Chloride) 100 mls @ 5 mls/hr CONT INF .Q20H [facility]; Protocol Last Titration: 05/04/20 15:00 Dose: 150 mcg/hr, 15 mls/hr Documented by: Cefepime HCl 2 gm/ Sodium (Chloride) 100 mls @ 200 mls/hr IV Q8 [facility] Last Infusion: 05/04/20 14:44 Dose: Infused Documented by: Propofol (Diprivan) 1,000 mg in 100 mls @ 10.02 mls/hr CONT INF .Q9H59M [facility]; Protocol Last Titration: 05/04/20 15:00 Dose: 15 mcg/kg/min, 15 mls/hr Documented by: Pantoprazole Sodium 40 mg/ (Sodium Chloride) 110 mls @ 330 mls/hr IV Q12 [facility] Last Infusion: 05/04/20 11:44 Dose: Infused Documented by: Enteral Nutritional Formula (Vital High Protein) 1,000 mls @ 75 mls/hr GT .[id number] [facility] Last Admin: 05/04/20 12:26 Dose: Not Given Documented by: Insulin Human Lispro (Insulin Lispro 100 Unit/Ml Insuln.Pen) 0 unit SC Q6 [facility]; Protocol Last Admin: 05/04/20 12:23 Dose: Not Given Documented by: Metoprolol Tartrate (Metoprolol Tartrate 50 Mg Tablet) 50 mg GT BID [facility] Last Admin: 05/04/20 10:26 Dose: 50 mg Documented by: Metoprolol Tartrate (Metoprolol Tartrate 5 Mg/5 Ml Vial) 5 mg IV Q4H PRN PRN Reason: systolic >160 Last Admin: 05/02/20 05:51 Dose: 5 mg Documented by: Miscellaneous Information (Inhaler, Assist Devices 1 Each Spacer) 1 each INHALATION PRN PRN PRN Reason: WITH ALBUTEROL MDI Last Admin: 04/27/20 16:41 Dose: 1 each Documented by: Ondansetron HCl (Ondansetron 4 Mg/2 Ml Vial) 4 mg IV Q8H PRN PRN PRN Reason: NAUSEA/VOMITING Polyethylene Glycol (Polyethylene Glycol 3350 17 Gm Packet) 17 gm GT DAILY [facility] Last Admin: 05/04/20 10:28 Dose: 17 gm Documented by: Quetiapine Fumarate (Quetiapine 25 Mg Tablet) 25 mg PO BID [facility] Last Admin: 05/04/20 10:26 Dose: 25 mg Documented by: Senna/Docusate Sodium (Senna/Docusate Sodium 1 Tablet) 2 tablet GT BID [facility] Last Admin: 05/04/20 10:25 Dose: 2 tablet Documented by: Sodium Chloride (0.9% Saline Lock 10 Ml Syringe) 10 - 40 ml IV UD PRN PRN Reason: SALINE FLUSH Last Admin: 05/04/20 04:13 Dose: 10 ml Documented by: - Past Medical History Past Medical History (Chronic Problems): Chronic Problems Aortic stenosis (Chronic) CAD (coronary artery disease) (Chronic) Cardiac murmur (Chronic) Rheumatic fever (Chronic) Hyperlipidemia (Chronic) Hypertension (Chronic) Atrial fibrillation (Chronic) - Past Surgical History Surgical History: coronary bypass surgery, herniorrhaphy, - - Social History Smoking Status: Never smoker Alcohol: None Drugs: None - Family History Maternal History Items: Heart Disease Paternal History Items: Heart Disease Sibling History Items: Heart Disease - Brother: CAD; CABG; ischemic cardiomyopathy; status post ICD Patient Problems: Active and Suspected Problems Acute respiratory failure with hypoxia (Acute) COVID-19 (Acute) Objective: Physical examination is deferred to preserve PPE and prevent further transmission of COVID-19 - Physical Exam Vitals/I&O's: Vital Signs Temp Pulse Resp BP Pulse Ox 99.5 F H 90 22 H 119/64 93 05/04/20 14:00 05/04/20 16:05 05/04/20 16:05 05/04/20 15:00 05/04/20 16:05 Oxygen Flow Rate (L/min) 60 Oxygen Delivery Method Mechanical Ventilator Weight: 167 kg Body Mass Index (BMI) 49.0 Intake and Output for Last 24 Hours 05/02/20 05/03/20 05/04/20 23:59 23:59 23:59 Intake Total 3228.78 / 3815.78 3729.78 / 3759.78 1831.75 / 1831.75 Output Total 1625 / 2150 2675 / 2675 1200 / 1200 Balance 1603.78 / 1665.78 1054.78 / 1084.78 631.75 / 631.75 Laboratory Results 05/03/20 12:36: POC Glucose 154 H 05/03/20 17:36: POC Glucose 160 H 05/03/20 23:09: POC Glucose 163 H 05/04/20 04:03: WBC 16.1 H, RBC 4.76, Hgb 13.0, Hct 42.0, MCV 88.2, MCH 27.3, MCHC 31.0 L, RDW Std Deviation 51.2 H, RDW Coeff of Citlaly 15.8 H, Plt Count 305, MPV 10.5, Immature Gran % (Auto) 1.200 H, Neut % (Auto) 90.6 H, Lymph % (Auto) 3.5 L, [place] % (Auto) 4.5, Eos % (Auto) 0.1, Baso % (Auto) 0.1, Absolute Neuts (auto) 14.6 H, Absolute Lymphs (auto) 0.56 L, Nucleated RBC % 0, Differential Comment SCANNED 05/04/20 04:03: Sodium 142, Potassium 5.0, Chloride 108 H, Carbon Dioxide 27.0, Anion Gap 7, BUN 127 H*, Creatinine 1.98 H, Estim Creat Clear Calc 39.19, Est GFR (MDRD) Af Amer 43 L, Est GFR (MDRD) Non-Af 36 L, BUN/Creatinine Ratio 64.1 H , Glucose 155 H, Calcium 8.8 05/04/20 05:09: POC Glucose 141 H 05/04/20 05:58: Specimen Type ART, Sample Site R Brach, pH 7.35, Bicarbonate Actual 27.9 H, Total CO2 30, Base Excess 2, O2 Saturation 93 L, O2 % 50, ABG pCO2 51.0 H, ABG pO2 73 L, Respiration Rate 12, O2 Delivery Device Adult Vent, Vent Mode BiLevel 05/04/20 12:20: POC Glucose 138 H Current Medications Acetaminophen (Acetaminophen 650 Mg/20 Ml Udc) 650 mg GT Q6H PRN PRN PRN Reason: Pain Score 1-10/Temp > 100.7 F Last Admin: 05/04/20 07:57 Dose: 650 mg Documented by: Albuterol Sulfate (Albuterol Sulfate 18 Gm Inhaler (200 Puffs)) 2 puff IH Q4H PRN PRN PRN Reason: Shortness of breath, wheezing Last Admin: 04/27/20 01:30 Dose: 2 puff Documented by: Albuterol/Ipratropium (Ipratropium/Albuterol Sulfate 3 Ml Ampul.Neb) 3 ml INHALATION Q6HWA.RT [facility] Last Admin: 05/04/20 13:30 Dose: 3 ml Documented by: Apixaban (Apixaban 5 Mg Tablet) 5 mg GT BID [facility] Last Admin: 05/04/20 10:26 Dose: 5 mg Documented by: Aspirin (Aspirin 81 Mg Tab.Chew) 81 mg GT DAILY [facility] Last Admin: 05/04/20 10:28 Dose: 81 mg Documented by: Atorvastatin Calcium (Atorvastatin Calcium 40 Mg Tablet) 40 mg GT QHS [facility] Last Admin: 05/03/20 23:10 Dose: 40 mg Documented by: Bupropion HCl (Bupropion 100 Mg Tablet) 150 mg PO BID [facility] Last Admin: 05/04/20 10:26 Dose: 150 mg Documented by: Chlorhexidine Gluconate (Chlorhexidine 15 Ml) 15 ml PO BID [facility] Last Admin: 05/04/20 10:28 Dose: 15 ml Documented by: Dexamethasone (Dexamethasone 4 Mg Tablet) 6 mg GT DAILY [facility] Stop: 05/05/20 10:01 Last Admin: 05/04/20 10:28 Dose: 6 mg Documented by: Hydralazine HCl (Hydralazine 20 Mg/Ml Vial) 10 mg IV Q4H PRN PRN PRN Reason: systolic >160 Last Admin: 05/02/20 08:12 Dose: 10 mg Documented by: Sodium Chloride () 250 mls @ 15 mls/hr IV .[id number] PRN PRN Reason: Saline Flush Last Infusion: 05/04/20 14:45 Dose: 15 mls/hr Documented by: Sodium Chloride () 250 mls @ 15 mls/hr IV .[id number] PRN PRN Reason: Additional IVPB Infusion Fentanyl Citrate 1,000 mcg/ (Sodium Chloride) 100 mls @ 5 mls/hr CONT INF .Q20H [facility]; Protocol Last Titration: 05/04/20 15:00 Dose: 150 mcg/hr, 15 mls/hr Documented by: Cefepime HCl 2 gm/ Sodium (Chloride) 100 mls @ 200 mls/hr IV Q8 [facility] Last Infusion: 05/04/20 14:44 Dose: Infused Documented by: Propofol (Diprivan) 1,000 mg in 100 mls @ 10.02 mls/hr CONT INF .Q9H59M [facility]; Protocol Last Titration: 05/04/20 15:00 Dose: 15 mcg/kg/min, 15 mls/hr Documented by: Pantoprazole Sodium 40 mg/ (Sodium Chloride) 110 mls @ 330 mls/hr IV Q12 [facility] Last Infusion: 05/04/20 11:44 Dose: Infused Documented by: Enteral Nutritional Formula (Vital High Protein) 1,000 mls @ 75 mls/hr GT .[id number] [facility] Last Admin: 05/04/20 12:26 Dose: Not Given Documented by: Insulin Human Lispro (Insulin Lispro 100 Unit/Ml Insuln.Pen) 0 unit SC Q6 [facility]; Protocol Last Admin: 05/04/20 12:23 Dose: Not Given Documented by: Metoprolol Tartrate (Metoprolol Tartrate 50 Mg Tablet) 50 mg GT BID [facility] Last Admin: 05/04/20 10:26 Dose: 50 mg Documented by: Metoprolol Tartrate (Metoprolol Tartrate 5 Mg/5 Ml Vial) 5 mg IV Q4H PRN PRN Reason: systolic >160 Last Admin: 05/02/20 05:51 Dose: 5 mg Documented by: Miscellaneous Information (Inhaler, Assist Devices 1 Each Spacer) 1 each INHALATION PRN PRN PRN Reason: WITH ALBUTEROL MDI Last Admin: 04/27/20 16:41 Dose: 1 each Documented by: Ondansetron HCl (Ondansetron 4 Mg/2 Ml Vial) 4 mg IV Q8H PRN PRN PRN Reason: NAUSEA/VOMITING Polyethylene Glycol (Polyethylene Glycol 3350 17 Gm Packet) 17 gm GT DAILY [facility] Last Admin: 05/04/20 10:28 Dose: 17 gm Documented by: Quetiapine Fumarate (Quetiapine 25 Mg Tablet) 25 mg PO BID [facility] Last Admin: 05/04/20 10:26 Dose: 25 mg Documented by: Senna/Docusate Sodium (Senna/Docusate Sodium 1 Tablet) 2 tablet GT BID [facility] Last Admin: 05/04/20 10:25 Dose: 2 tablet Documented by: Sodium Chloride (0.9% Saline Lock 10 Ml Syringe) 10 - 40 ml IV UD PRN PRN Reason: SALINE FLUSH Last Admin: 05/04/20 04:13 Dose: 10 ml Documented by: Assessment/Plan All Active Problems Acute respiratory failure with hypoxia (Acute) COVID-19 (Acute) ALBERTO prerenal with diuresis and possible ATN with COVID-19 Baseline serum creatinine 1.2 COVID-19 PNA Respiratory failure s/p intubation on mechanical ventilation Has an excellent urine output. He has Lares catheter in place. We will check ultrasound and UA and FENA Diuretics are on hold for now We will evaluate [employer] needs on a daily basis Continue to hold losartan Further work-up and management as per clinical course Keep MAP more than 65 Thank you very much for allowing me to participate in the care of this patient. Please do not hesitate to call if you have any questions or concerns.
[2020-05-04] MEDS: Propofol 10MG/Ml 1,000 MG/100 ML Bottle 30.1 MG CONT INF (17:55)
[2020-05-04] MEDS: Insulin Lispro 100 UNIT/ML INSULN.PEN SC ×2 (18:14→23:16)
[2020-05-04 18:26] LABS: White Blood Cells 0 SEEN /hpf (0-5)
[2020-05-04 18:27] LABS: Bacteria 0 SEEN /hpf (None Seen); Color, Urine Yellow (Yellow); Glucose, Dipstick Normal (Normal); Ketone-Dipstick Negative (Negative); Leukocyte Esterase-Dipstick Negative /ul (Negative); Mucous, Urine 0 SEEN /hpf (<or=2+); Nitrite-Dipstick Negative (Negative); Occult Blood-Urine 250 /ul (Negative); Protein-Dipstick 30 mg/dl (Negative); Specific Gravity, Urine 1.015 (1.002-1.030); Squamous Epithelial Cells - UA 0 SEEN /hpf (0-5); Urine Bilirubin Dipstick Negative (Negative); Urine Clarity Clear (Clear); Urine Urobilinogen Normal (Normal)
[2020-05-04 18:31] LABS: Bedside Glucose 168 mg/dL (70-110)
[2020-05-04 18:35] LABS: Red Blood Cells-Urine 25-50 SEEN /hpf (0-5)
[2020-05-04 18:38] LABS: Coarse Granular Cast 0-5 SEEN /lpf (0-5 /lpf); Uric Acid Crystals Ur RARE /hpf (<or=1+); Urine Sodium 18 mmol/L (Not Establ.)
[2020-05-04] MEDS: Propofol 10MG/Ml 1,000 MG/100 ML Bottle 20 MG CONT INF (21:51)
[2020-05-04] MEDS: Atorvastatin Calcium 40 MG Tablet GT (23:16)
[2020-05-04 23:31] LABS: Bedside Glucose 166 mg/dL (70-110)
[2020-05-05] VITALS (37 sets, daily range): BP systolic 107–183; BP diastolic 55–108; PULSE 89–120; RESP 13–36; TEMP 37.8–38.6; O2SAT 90–95
[2020-05-05] MEDS: Propofol 10MG/Ml 1,000 MG/100 ML Bottle 20 MG CONT INF ×2 (03:00→04:37)
[2020-05-05] MEDS: Vital High Protein 1,000 ML 75 ML GT ×2 (03:20→20:30)
[2020-05-05 03:28] LABS: Absolute Lymphocyte Count 0.51 X10^3/uL (0.83-4.51); Absolute Neutrophil Count 12.4 X10^3/uL (2.0-7.7); Basophil# 0.03 X10^3/uL; Basophil% 0.2 % (0-1); Eosinophil# 0.03 X10^3/uL; Eosinophils% 0.2 % (0-5); Hematocrit 38.7 % (40-54); Hemoglobin 12.3 g/dL (13.0-16.5); Lymphocyte # 0.51 X10^3/ul (4.0); Lymphocyte % 3.7 % (19-41); Mean Corp Hgb Conc 31.8 g/dL (32-36); Mean Corpuscular Volume 88.2 fL (80-94); Mean Platelet Vol. 10.8 fl (6.2-12.0); Monocyte# 0.71 X10^3/uL; Monocyte% 5.1 % (0-10); NRBC Flagged by Analyzer 0 % (0-5); Neutrophil # 12.43 X10^3/uL (2.7-7.7); Neutrophil % 89.2 % (47-70); POSITIVE DIFFERENTIAL YES; Platelet Count 275 K/mm3 (150-450); RBC Distribution Width CV 15.8 % (11.6-14.6); RBC Distribution Width SD 50.9 fl (35.1-43.9); Red Blood Count 4.39 M/mm3 (4.6-6.2); White Blood Count 13.9 K/mm3 (4.4-11.0)
[2020-05-05 03:41] LABS: Differential Indicated SCAN CRITERIA MET
[2020-05-05 03:47] LABS: Anion Gap 6 (5-15); BUN 137 mg/dL (7-18); BUN/Creat Ratio 69.2 RATIO (10-20); Calcium,Total 8.8 mg/dL (8.5-10.1); Chloride 112 mmol/L (98-107); Creatinine, Serum 1.98 mg/dL (0.70-1.30); EST Glomerular Filtration Rate 36 mL/min (>60); Est Glom Filt Rate - Afr Amer 43 mL/min (>60); Estimated Creatinine Clearance 39.19 ml/min; Glucose 139 mg/dL (74-106); Magnesium 3.5 mg/dL (1.6-2.6); Phosphorus 3.9 mg/dL (2.5-4.9); Potassium 5.6 mmol/L (3.5-5.1); Sodium Level 145 mmol/L (136-145)
[2020-05-05 05:55] LABS: Base Excess 2 mmol/L (-2 to +2); Bicarbonate 28.1 mmol/L (22-26); Blood Gas Specimen Type ART; FI02 45; Mode BiLevel; O2 Delivery Device Adult Vent; PEEP 8; PO2 72 mmHG (75-100); RR 12; SITE L Radial; SO2 92 % (95-99); Total Carbon Dioxide 30 mmol/L; pCO2 58.2 mmHg (35-45); pH 7.29 (7.35-7.45)
[2020-05-05] MEDS: Ipratropium/Albuterol Sulfate 3 ML AMPUL.NEB INHALATION ×3 (07:07→19:46)
[2020-05-05] MEDS: TITRATION PARAMETER CHANGE 1 EACH IV (07:49)
--- NOTE | 2020-05-05 09:24 | PN_ITS ---
Subjective: Patient did okay overnight. Patient remains on APRV to maintain saturations. Patient continues to have significant urine output despite elevated BUN. No bleeding has been reported by nursing. Patient does have significant vent dyssynchrony when agitated. No pressors have been required. General: - - Intubated and sedated. RASS -3. HEENT: Atraumatic, PERRLA, EOMI, Normocephalic, - - No scleral injection or icterus Oral: Moist Mucosa, No Gingival or Mucosal Lesions/ Ulcerations Neck: Supple, No Nodes, Trachea Midline, JVD, Right Lungs: No rhonchi, No wheeze, No rales, Diminished, - - Symmetric expansion. No dullness to percussion. Cardiovascular: Regular rate, Regular Rhythm, Normal S1, Normal S2, No murmurs, No rub noted, No Gallop Abdomen: Bowel Sounds Present, Soft, Non Tender, Non-Distended, Obese Extremities: No clubbing, No cyanosis, Edema Skin: No rashes, No breakdown, - - Some erythema and swelling noted of the knee Musculoskeletal: No Tenderness to Palpation of Joints or Extremities Lymphatic: No Cervical, Supraclavicular, or Inguinal Adenopathy Neurological: Cranial nerves II-XII grossly intact, Motor Exam 5/5 strength throughout Psych/Mental Status: Flat Affect Vital Signs Temp Pulse Resp BP Pulse Ox 37.9 C H 101 H 22 H 126/59 H 91 05/05/20 06:00 05/05/20 07:09 05/05/20 07:09 05/05/20 06:00 05/05/20 07:09 Oxygen Flow Rate (L/min) 60 Oxygen Delivery Method Mechanical Ventilator Weight: 168.7 kg Body Mass Index (BMI) 49.0 Intake and Output for Last 24 Hours 05/03/20 05/04/20 05/05/20 23:59 23:59 23:59 Intake Total 3729.78 / 3759.78 3359.67 / 3979.67 1822.16 / 1822.16 Output Total 2675 / 2675 1409 1250 / 1250 Balance 1054.78 / 1084.78 1949.67 / 1969.67 572.16 / 572.16 Labs (Last 48 Hours) 05/03/20 05/03/20 05/03/20 12:36 17:36 23:09 WBC RBC Hgb Hct MCV MCH MCHC RDW Std Deviation RDW Coeff of Citlaly Plt Count MPV Immature Gran % (Auto) Neut % (Auto) Lymph % (Auto) [place] % (Auto) Eos % (Auto) Baso % (Auto) Absolute Neuts (auto) Absolute Lymphs (auto) Nucleated RBC % Differential Comment Specimen Type Sample Site pH Bicarbonate Actual Total CO2 Base Excess O2 Saturation O2 % ABG pCO2 ABG pO2 Respiration Rate O2 Delivery Device Vent Mode POC PEEP Sodium Potassium Chloride Carbon Dioxide Anion Gap BUN Creatinine Estim Creat Clear Calc Est GFR (MDRD) Af Amer Est GFR (MDRD) Non-Af BUN/Creatinine Ratio Glucose Calcium Phosphorus Magnesium Urine Color Urine Clarity Urine pH Ur Specific [place] Urine Protein Urine Glucose (UA) Urine Ketones Urine Occult Blood Urine Nitrite Urine Bilirubin Urine Urobilinogen Ur Leukocyte Esterase Urine RBC Urine WBC Ur Squamous Epith Cells Uric Acid Crystals Urine Bacteria Coarse Granular Casts Urine Mucus Ur Random Sodium Urine Creatinine POC Glucose 154 H 160 H 163 H 05/04/20 05/04/20 05/04/20 04:03 04:03 05:09 WBC 16.1 H RBC 4.76 Hgb 13.0 Hct 42.0 MCV 88.2 MCH 27.3 MCHC 31.0 L RDW Std Deviation 51.2 H RDW Coeff of Citlaly 15.8 H Plt Count 305 MPV 10.5 Immature Gran % (Auto) 1.200 H Neut % (Auto) 90.6 H Lymph % (Auto) 3.5 L [place] % (Auto) 4.5 Eos % (Auto) 0.1 Baso % (Auto) 0.1 Absolute Neuts (auto) 14.6 H Absolute Lymphs (auto) 0.56 L Nucleated RBC % 0 Differential Comment SCANNED Specimen Type Sample Site pH Bicarbonate Actual Total CO2 Base Excess O2 Saturation O2 % ABG pCO2 ABG pO2 Respiration Rate O2 Delivery Device Vent Mode POC PEEP Sodium 142 Potassium 5.0 Chloride 108 H Carbon Dioxide 27.0 Anion Gap 7 BUN 127 H* Creatinine 1.98 H Estim Creat Clear Calc 39.19 Est GFR (MDRD) Af Amer 43 L Est GFR (MDRD) Non-Af 36 L BUN/Creatinine Ratio 64.1 H Glucose 155 H Calcium 8.8 Phosphorus Magnesium Urine Color Urine Clarity Urine pH Ur Specific [place] Urine Protein Urine Glucose (UA) Urine Ketones Urine Occult Blood Urine Nitrite Urine Bilirubin Urine Urobilinogen Ur Leukocyte Esterase Urine RBC Urine WBC Ur Squamous Epith Cells Uric Acid Crystals Urine Bacteria Coarse Granular Casts Urine Mucus Ur Random Sodium Urine Creatinine POC Glucose 141 H 05/04/20 05/04/20 05/04/20 05:58 12:20 18:09 WBC RBC Hgb Hct MCV MCH MCHC RDW Std Deviation RDW Coeff of Citlaly Plt Count MPV Immature Gran % (Auto) Neut % (Auto) Lymph % (Auto) [place] % (Auto) Eos % (Auto) Baso % (Auto) Absolute Neuts (auto) Absolute Lymphs (auto) Nucleated RBC % Differential Comment Specimen Type ART Sample Site R Brach pH 7.35 Bicarbonate Actual 27.9 H Total CO2 30 Base Excess 2 O2 Saturation 93 L O2 % 50 ABG pCO2 51.0 H ABG pO2 73 L Respiration Rate 12 O2 Delivery Device Adult Vent Vent Mode BiLevel POC PEEP Sodium Potassium Chloride Carbon Dioxide Anion Gap BUN Creatinine Estim Creat Clear Calc Est GFR (MDRD) Af Amer Est GFR (MDRD) Non-Af BUN/Creatinine Ratio Glucose Calcium Phosphorus Magnesium Urine Color Urine Clarity Urine pH Ur Specific [place] Urine Protein Urine Glucose (UA) Urine Ketones Urine Occult Blood Urine Nitrite Urine Bilirubin Urine Urobilinogen Ur Leukocyte Esterase Urine RBC Urine WBC Ur Squamous Epith Cells Uric Acid Crystals Urine Bacteria Coarse Granular Casts Urine Mucus Ur Random Sodium Urine Creatinine POC Glucose 138 H 168 H 05/04/20 05/04/20 05/04/20 18:10 18:10 23:05 WBC RBC Hgb Hct MCV MCH MCHC RDW Std Deviation RDW Coeff of Citlaly Plt Count MPV Immature Gran % (Auto) Neut % (Auto) Lymph % (Auto) [place] % (Auto) Eos % (Auto) Baso % (Auto) Absolute Neuts (auto) Absolute Lymphs (auto) Nucleated RBC % Differential Comment Specimen Type Sample Site pH Bicarbonate Actual Total CO2 Base Excess O2 Saturation O2 % ABG pCO2 ABG pO2 Respiration Rate O2 Delivery Device Vent Mode POC PEEP Sodium Potassium Chloride Carbon Dioxide Anion Gap BUN Creatinine Estim Creat Clear Calc Est GFR (MDRD) Af Amer Est GFR (MDRD) Non-Af BUN/Creatinine Ratio Glucose Calcium Phosphorus Magnesium Urine Color Yellow Urine Clarity Clear Urine pH 6.0 Ur Specific [place] 1.015 Urine Protein 30 H Urine Glucose (UA) Normal Urine Ketones Negative Urine Occult Blood 250 H Urine Nitrite Negative Urine Bilirubin Negative Urine Urobilinogen Normal Ur Leukocyte Esterase Negative Urine RBC 25-50 SEEN Urine WBC 0 SEEN Ur Squamous Epith Cells 0 SEEN Uric Acid Crystals RARE Urine Bacteria 0 SEEN Coarse Granular Casts 0-5 SEEN Urine Mucus 0 SEEN Ur Random Sodium 18 Urine Creatinine 58.20 POC Glucose 166 H 05/05/20 05/05/20 05/05/20 03:15 03:15 05:52 WBC 13.9 H RBC 4.39 L Hgb 12.3 L Hct 38.7 L MCV 88.2 MCH 28.0 MCHC 31.8 L RDW Std Deviation 50.9 H RDW Coeff of Citlaly 15.8 H Plt Count 275 MPV 10.8 Immature Gran % (Auto) 1.600 H Neut % (Auto) 89.2 H Lymph % (Auto) 3.7 L [place] % (Auto) 5.1 Eos % (Auto) 0.2 Baso % (Auto) 0.2 Absolute Neuts (auto) 12.4 H Absolute Lymphs (auto) 0.51 L Nucleated RBC % 0 Differential Comment Specimen Type ART Sample Site L Radial pH 7.29 L Bicarbonate Actual 28.1 H Total CO2 30 Base Excess 2 O2 Saturation 92 L O2 % 45 ABG pCO2 58.2 H ABG pO2 72 L Respiration Rate 12 O2 Delivery Device Adult Vent Vent Mode BiLevel POC PEEP 8 Sodium 145 Potassium 5.6 H Chloride 112 H Carbon Dioxide 27.0 Anion Gap 6 BUN 137 H* Creatinine 1.98 H Estim Creat Clear Calc 39.19 Est GFR (MDRD) Af Amer 43 L Est GFR (MDRD) Non-Af 36 L BUN/Creatinine Ratio 69.2 H Glucose 139 H Calcium 8.8 Phosphorus 3.9 Magnesium 3.5 H Urine Color Urine Clarity Urine pH Ur Specific [place] Urine Protein Urine Glucose (UA) Urine Ketones Urine Occult Blood Urine Nitrite Urine Bilirubin Urine Urobilinogen Ur Leukocyte Esterase Urine RBC Urine WBC Ur Squamous Epith Cells Uric Acid Crystals Urine Bacteria Coarse Granular Casts Urine Mucus Ur Random Sodium Urine Creatinine POC Glucose Medical Necessity - Tobacco Use Smoking Status: Never smoker Assessment/Plan All Active Problems Acute respiratory failure with hypoxia (Acute) COVID-19 (Acute) RECOMMENDATIONS: 1. Continue fentanyl and propofol for sedation, along with scheduled Seroquel. 2. Await nephrology recommendations concerning [employer] 3. Continue APRV mode of mechanical ventilation and wean FiO2 as tolerated. Continue to decrease P high and stretch T high as tolerated. 4. Continue tube feeds as tolerated. 5. Continue antimicrobials per ID recommendations. 6. Continue systemic anticoagulation with Eliquis. 7. Continue Decadron as ordered to complete treatment course. 8. Continue appropriate GI prophylaxis. IMPRESSIONS: 1. Acute hypoxemic respiratory failure secondary to ARDS due to COVID- 19/MSSA pneumonia The patient was initially diagnosed 1 week prior to hospital admission. Although attempts were made to utilize high flow oxygen and noninvasive positive pressure ventilatory support, the patient continued to decompensate from a respiratory perspective, requiring transfer to ICU and subsequent intubation on April 29. The patient has gone on to develop fulminant ARDS with high ventilator requirements. The patient has completed a treatment course of remdesivir and will remain on Decadron. The patient will remain on appropriate antimicrobials well per ID recommendations. The patient is currently tolerating APRV mode of mechanical ventilation which will be continued. Unclear how much further decreases in P high patient will tolerate given ABG this morning. Could attempt to decrease T high to facilitate ventilation, but spontaneous respirations appear to be appropriate. 2. ALBERTO on CKD Possibly prerenal in etiology. Await nephrology recommendations for [employer]. Diuretics per nephrology. Patient was significant uremia with stable creatinine. No bleeding has been noted, but this pattern can be seen with occult GI bleed. Continue to monitor closely. Unclear if hyperkalemia secondary to renal function, acidosis or hemolysis. Hemolysis status was not mentioned by the laboratory. 3. Obesity/hypertension/hyperlipidemia/paroxysmal atrial fibrillation/coronary artery disease/GERD Complicates care, management, recovery and prognosis. Continue home medications as indicated. TIME: 39 minutes of critical care time, independent of procedures, was spent addressing the patient's acute hypoxemic respiratory failure secondary to ARDS due to COVID-19 pneumonia, paroxysmal atrial fibrillation, coronary artery disease, ALBERTO, review of all data and collaboration with care team. (7:30 AM to 9:30 AM) [id number]: [id number] Critical care first hour
[2020-05-05] MEDS: Propofol 10MG/Ml 1,000 MG/100 ML Bottle 20.2 MG CONT INF ×4 (10:30→20:38)
--- NOTE | 2020-05-05 11:40 | PN.RENAL_ITS ---
Patient Problems: Active and Suspected Problems Acute respiratory failure with hypoxia (Acute) COVID-19 (Acute) Subjective: No new events - Physical Exam Vitals/I&O's: Vital Signs Temp Pulse Resp BP Pulse Ox 100.2 F H 101 H 22 H 126/59 H 91 05/05/20 06:00 05/05/20 07:09 05/05/20 07:09 05/05/20 06:00 05/05/20 07:09 Oxygen Flow Rate (L/min) 60 Oxygen Delivery Method Mechanical Ventilator Weight: 168.7 kg Body Mass Index (BMI) 49.0 Intake and Output for Last 24 Hours 05/03/20 05/04/20 05/05/20 23:59 23:59 23:59 Intake Total 3729.78 / 3759.78 3359.67 / 3979.67 1822.16 / 1822.16 Output Total 2675 / 2675 1409 / 2009 1250 / 1250 Balance 1054.78 / 1084.78 1949.67 / 1969.67 572.16 / 572.16 HEENT: Atraumatic, PERRLA, EOMI, Normocephalic Neck: Supple Lungs: Diminished Cardiovascular: Regular rate Abdomen: Bowel Sounds Present Extremities: No cyanosis, No edema Skin: No rashes Comment: Intubated and sedated Laboratory Results 05/04/20 12:20: POC Glucose 138 H 05/04/20 18:09: POC Glucose 168 H 05/04/20 18:10: Urine Color Yellow, Urine Clarity Clear, Urine pH 6.0, Ur Specific [place] 1.015, Urine Protein 30 H, Urine Glucose (UA) Normal, Urine Ketones Negative, Urine Occult Blood 250 H, Urine Nitrite Negative, Urine Bilirubin Negative, Urine Urobilinogen Normal, Ur Leukocyte Esterase Negative, Urine RBC 25-50 SEEN, Urine WBC 0 SEEN, Ur Squamous Epith Cells 0 SEEN, Uric Acid Crystals RARE, Urine Bacteria 0 SEEN, Coarse Granular Casts 0-5 SEEN, Urine Mucus 0 SEEN 05/04/20 18:10: Ur Random Sodium 18, Urine Creatinine 58.20 05/04/20 23:05: POC Glucose 166 H 05/05/20 03:15: WBC 13.9 H, RBC 4.39 L, Hgb 12.3 L, Hct 38.7 L, MCV 88.2, MCH 28.0, MCHC 31.8 L, RDW Std Deviation 50.9 H, RDW Coeff of Citlaly 15.8 H, Plt Count 275, MPV 10.8, Immature Gran % (Auto) 1.600 H, Neut % (Auto) 89.2 H, Lymph % (Auto) 3.7 L, [place] % (Auto) 5.1, Eos % (Auto) 0.2, Baso % (Auto) 0.2, Absolute Neuts (auto) 12.4 H, Absolute Lymphs (auto) 0.51 L, Nucleated RBC % 0 05/05/20 03:15: Sodium 145, Potassium 5.6 H, Chloride 112 H, Carbon Dioxide 27.0, Anion Gap 6, BUN 137 H*, Creatinine 1.98 H, Estim Creat Clear Calc 39.19, Est GFR (MDRD) Af Amer 43 L, Est GFR (MDRD) Non-Af 36 L, BUN/Creatinine Ratio 69.2 H, Glucose 139 H, Calcium 8.8, Phosphorus 3.9, Magnesium 3.5 H 05/05/20 05:52: Specimen Type ART, Sample Site L Radial, pH 7.29 L, Bicarbonate Actual 28.1 H, Total CO2 30, Base Excess 2, O2 Saturation 92 L, O2 % 45, ABG pCO2 58.2 H, ABG pO2 72 L, Respiration Rate 12, O2 Delivery Device Adult Vent, Vent Mode BiLevel, POC PEEP 8 Current Medications Acetaminophen (Acetaminophen 650 Mg/20 Ml Udc) 650 mg GT Q6H PRN PRN PRN Reason: Pain Score 1-10/Temp > 100.7 F Last Admin: 05/04/20 07:57 Dose: 650 mg Documented by: Albuterol Sulfate (Albuterol Sulfate 18 Gm Inhaler (200 Puffs)) 2 puff IH Q4H PRN PRN PRN Reason: Shortness of breath, wheezing Last Admin: 04/27/20 01:30 Dose: 2 puff Documented by: Albuterol/Ipratropium (Ipratropium/Albuterol Sulfate 3 Ml Ampul.Neb) 3 ml INHALATION Q6HWA.RT [facility] Last Admin: 05/05/20 07:07 Dose: 3 ml Documented by: Aspirin (Aspirin 81 Mg Tab.Chew) 81 mg GT DAILY [facility] Last Admin: 05/04/20 10:28 Dose: 81 mg Documented by: Atorvastatin Calcium (Atorvastatin Calcium 40 Mg Tablet) 40 mg GT QHS [facility] Last Admin: 05/04/20 23:16 Dose: 40 mg Documented by: Bupropion HCl (Bupropion 100 Mg Tablet) 150 mg PO BID [facility] Last Admin: 05/04/20 23:15 Dose: 150 mg Documented by: Chlorhexidine Gluconate (Chlorhexidine 15 Ml) 15 ml PO BID [facility] Last Admin: 05/04/20 23:14 Dose: 15 ml Documented by: Hydralazine HCl (Hydralazine 20 Mg/Ml Vial) 10 mg IV Q4H PRN PRN PRN Reason: systolic >160 Last Admin: 05/02/20 08:12 Dose: 10 mg Documented by: Sodium Chloride () 250 mls @ 15 mls/hr IV .[id number] PRN PRN Reason: Saline Flush Last Infusion: 05/05/20 04:00 Dose: Infused Documented by: Sodium Chloride () 250 mls @ 15 mls/hr IV .[id number] PRN PRN Reason: Additional IVPB Infusion Fentanyl Citrate 1,000 mcg/ (Sodium Chloride) 100 mls @ 5 mls/hr CONT INF .Q20H [facility]; Protocol Last Titration: 05/05/20 09:00 Dose: 175 mcg/hr, 17.5 mls/hr Documented by: Propofol (Diprivan) 1,000 mg in 100 mls @ 10.122 mls/hr CONT INF .[id number] [facility]; Protocol Last Titration: 05/05/20 09:00 Dose: 20 mcg/kg/min, 20.2 mls/hr Documented by: Pantoprazole Sodium 40 mg/ (Sodium Chloride) 110 mls @ 330 mls/hr IV Q12 [facility] Last Infusion: 05/04/20 21:43 Dose: Infused Documented by: Enteral Nutritional Formula (Vital High Protein) 1,000 mls @ 75 mls/hr GT .[id number] [facility] Last Admin: 05/05/20 03:20 Dose: 75 mls/hr Documented by: Cefepime HCl 2 gm/ Sodium (Chloride) 100 mls @ 200 mls/hr IV Q12 [facility] Insulin Human Lispro (Insulin Lispro 100 Unit/Ml Insuln.Pen) 0 unit SC Q6 [facility]; Protocol Last Admin: 05/05/20 05:48 Dose: Not Given Documented by: Metoprolol Tartrate (Metoprolol Tartrate 50 Mg Tablet) 50 mg GT BID [facility] Last Admin: 05/04/20 23:15 Dose: 50 mg Documented by: Metoprolol Tartrate (Metoprolol Tartrate 5 Mg/5 Ml Vial) 5 mg IV Q4H PRN PRN Reason: systolic >160 Last Admin: 05/02/20 05:51 Dose: 5 mg Documented by: Miscellaneous Information (Inhaler, Assist Devices 1 Each Spacer) 1 each INHALATION PRN PRN PRN Reason: WITH ALBUTEROL MDI Last Admin: 04/27/20 16:41 Dose: 1 each Documented by: Ondansetron HCl (Ondansetron 4 Mg/2 Ml Vial) 4 mg IV Q8H PRN PRN PRN Reason: NAUSEA/VOMITING Polyethylene Glycol (Polyethylene Glycol 3350 17 Gm Packet) 17 gm GT DAILY [facility] Last Admin: 05/04/20 10:28 Dose: 17 gm Documented by: Quetiapine Fumarate (Quetiapine 25 Mg Tablet) 25 mg PO BID [facility] Last Admin: 05/04/20 23:15 Dose: 25 mg Documented by: Senna/Docusate Sodium (Senna/Docusate Sodium 1 Tablet) 2 tablet GT BID [facility] Last Admin: 05/04/20 23:15 Dose: 2 tablet Documented by: Sodium Chloride (0.9% Saline Lock 10 Ml Syringe) 10 - 40 ml IV UD PRN PRN Reason: SALINE FLUSH Last Admin: 05/04/20 04:13 Dose: 10 ml Documented by: Medical Necessity - Tobacco Use Smoking Status: Never smoker Assessment/Plan All Active Problems Acute respiratory failure with hypoxia (Acute) COVID-19 (Acute) Acute renal failure Covid pneumonia Creatinine today is about the same as yesterday. BUN is significantly higher. Significant azotemia. Mental status cannot be assessed since he is intubated and sedated. Potassium is on the higher side today. Urine output is good. Hemodynamics are stable. High BUN could be from catabolism, steroids, with some renal failure component. Does not have peripheral signs of volume overload. Last chest x-ray had extensive infiltrates. Fairly borderline for renal replacement therapy Can treat potassium medically for now We will discuss with ICU attending I will also reach out to family members
--- NOTE | 2020-05-05 11:51 | CASEMGMT ---
ALFREDO JONES Note: participated in ICU interdisciplinary rounds. The patient remains on ventilator @ 45% oxygen. Failed mobility, no PT/OT today. Patient remains on Fentanyl and Diprivan gtt. Nephrology following for possible dialysis. BUN 137, Creatinine 1.98 and patient is continuing to have urine output. DC Planning deferred @ this time. CM will continue to follow for dc planning. DC PLAN: anticipate SNF on dc. Nitin CALLEJAS RN ACM
[2020-05-05] MEDS: QUEtiapine 25 MG Tablet PO ×2 (11:55→21:25)
[2020-05-05] MEDS: buPROPion 100 MG Tablet 150 MG PO ×2 (11:55→21:25)
[2020-05-05] MEDS: dexAMETHasone 4 MG Tablet 6 MG GT (11:56)
[2020-05-05] MEDS: Chlorhexidine 15 ML PO ×2 (11:56→21:24)
[2020-05-05] MEDS: Metoprolol Tartrate 50 MG Tablet GT ×2 (11:57→21:24)
[2020-05-05] MEDS: Aspirin 81 MG TAB.CHEW GT (11:57)
[2020-05-05] MEDS: Senna/Docusate Sodium 1 Tablet 2 TABLET GT ×2 (11:58→21:25)
[2020-05-05] MEDS: Polyethylene Glycol 3350 17 GM PACKET GT (11:58)
--- NOTE | 2020-05-05 12:30 | RAD_ITS ---
STUDY: X-RAY CHEST REASON FOR EXAM: Male, 69 years old. ? PNEUMOTHORAX, HYPOXIA TECHNIQUE: Single AP portable view of the chest. COMPARISON: Comparison is made with prior study dated 04/29/2020. FINDINGS: An endotracheal tube is in situ. The tip is at 2.7 cm proximal to the yisel. An orogastric tube is seen with tip below the left hemidiaphragm. EKG electrodes are seen. Since prior study, there has been improved aeration of both lungs. Residual changes persist. There is no demonstrated pleural abnormality. Sternal cerclage wires and vascular clips are present from a prior sternotomy and coronary artery bypass graft procedure (CABG). Normal mediastinum and katie. Normal visualized pulmonary arteries. There is atherosclerotic tortuosity of the aortic arch and descending thoracic aorta. There are diffuse degenerative changes of the visualized thoracic spine. Normal visualized ribs, clavicles, and shoulders. There is no demonstrated abnormality of the visualized soft tissue structures of the upper abdomen. RAD/CXR for Line Placement IMPRESSION: Improved aeration of both lungs. The support tubes are in good position. Electronically Signed: Shar Abraham, at 14:18 EST , Service support ,
--- NOTE | 2020-05-05 12:31 | NURSING ---
[address] [employer] present in pt room prep for line placement 1230 HR 118 R 24 BP 115/66 SpO2 93 placement begun 1235 HR 117 R 24 BP 138/57 SpO2 93 1240 HR 118 R 27 BP 133/64 SpO2 93 1245 HR 118 R 25 BP 145/56 SpO2 93 speaking w/Dr. Petersen CXR ordered [address] Petersen 1310 HR 119 R 28 BP 156/63 SpO2 92 begin prep Rt neck 1315 HR 117 R 26 BP 157/56 SpO2 93 1320 HR 116 R 25 BP 149/62 SpO2 93 begin placement RIJ 1325 HR 117 R 27 BP 134/67 SpO2 93 1330 HR 119 R 28 BP 163/70 SpO2 93 wire down, sm amt ectopy 1333 RIJ Tl placed.
--- NOTE | 2020-05-05 13:20 | RAD_ITS ---
STUDY: X-RAY CHEST REASON FOR EXAM: Male, 69 years old. Fever, respiratory failure TECHNIQUE: Single AP portable view of the chest. COMPARISON: Earlier today FINDINGS: Previously described support lines and tubes unchanged in position. A right IJ central venous catheter is in place, tip is in the mid SVC, no pneumothorax Lung lucero show persistent airspace and interstitial opacifications unchanged from the previous study. There is no demonstrated pleural abnormality. Sternal cerclage wires and vascular clips are present from a prior sternotomy and coronary artery bypass graft procedure (CABG). Normal mediastinum and katie. Normal visualized pulmonary arteries. There is atherosclerotic calcification of the aortic arch with tortuosity. There are diffuse degenerative changes of the visualized thoracic spine. Normal visualized ribs, clavicles, and shoulders. There is no demonstrated abnormality of the visualized soft tissue structures of the upper abdomen. RAD/CXR for Line Placement IMPRESSION: Stable airspace and interstitial opacifications in both lung lucero. Stable appearance of the support lines and tubes, no complications Right IJ central venous catheter has been placed since the previous study, tip is in the mid SVC Electronically Signed: Tobin Jensen MD at 14:45 EST , Service support ,
--- NOTE | 2020-05-05 13:50 | PCM.OPRPT ---
Report of Operation Date of Procedure: 05/05/20 Surgery/Procedure Performed:: Triple-lumen catheter insertion Description of Surgical Findings:: Central line placement procedure note Indication: IV access/hemodynamic instability/vasoactive medications Procedure: A time-out was completed to verify correct patient, indication, medication allergies, procedure, coagulation studies, informed consent signed, and equipment needed. The patient was placed in the supine position for a central line placement to the left IJ vein. The patients left neck was prepped using chlorhexidine and a full body sterile drape was applied. 1% lidocaine was used to anesthetize the surrounding skin. Access to the left IJ was made, unable to pass wire. Procedure was aborted. Pressure held to the insertion site until hemostasis was achieved. A time-out was completed to verify correct patient, indication, medication allergies, procedure, coagulation studies, informed consent signed, and equipment needed. The patient was placed in the supine position for a central line placement to the rt IJ vein. The patients rt neck was prepped using chlorhexidine and a full body sterile drape was applied. 1% lidocaine was used to anesthetize the surrounding skin. A 7fr 16 cm blue guard triple lumen catheter introduced into the internal jugular vein using the modified Seldinger technique with the assistance of ultrasound. The catheter was threaded smoothly over the guidewire, the guidewire was removed easily, nonpulsatile blood returned. All ports were aspirated of air and flushed with sterile saline. The catheter was sutured in place and covered with an occlusive dressing impregnated with chlorhexidine. Post-procedure: The patient tolerated the procedure well. Vital signs remained stable. EBL 8. No complications. Chest X Ray ordered to confirm tip placement and the absence of pneumothorax. Procedures: [id number] Insert Non-tunnel CV Cath
[2020-05-05 14:00] LABS: Bedside Glucose 119 mg/dL (70-110)
[2020-05-05] MEDS: Acetaminophen 650 MG/20 ML UDC GT (14:06)
--- NOTE | 2020-05-05 14:41 | PN.ID_ITS ---
Patient Problems: Active and Suspected Problems Acute respiratory failure with hypoxia (Acute) COVID-19 (Acute) Subjective: Remains on vent. Now with GI bleed, line placed. - Physical Exam Vitals/I&O's: Vital Signs Temp Pulse Resp BP Pulse Ox 100.2 F H 119 H 36 H 183/79 H 91 05/05/20 06:00 05/05/20 14:23 05/05/20 14:23 05/05/20 11:57 05/05/20 14:23 Oxygen Flow Rate (L/min) 60 Oxygen Delivery Method Mechanical Ventilator Weight: 168.7 kg Body Mass Index (BMI) 49.0 Intake and Output for Last 24 Hours 05/03/20 05/04/20 05/05/20 23:59 23:59 23:59 Intake Total 3729.78 / 3759.78 3359.67 / 3979.67 2608.16 / 2608.16 Output Total 2675 / 2675 1409 / 2009 1949 / 1949 Balance 1054.78 / 1084.78 1949.67 / 1969.67 658.16 / 658.16 General: No apparent distress Lungs: Clear to auscultation, Diminished Cardiovascular: Regular rate, Regular Rhythm Abdomen: Soft, Non Tender, Non-Distended Skin: No rashes Laboratory Results 05/04/20 18:09: POC Glucose 168 H 05/04/20 18:10: Urine Color Yellow, Urine Clarity Clear, Urine pH 6.0, Ur Specific [place] 1.015, Urine Protein 30 H, Urine Glucose (UA) Normal, Urine Ketones Negative, Urine Occult Blood 250 H, Urine Nitrite Negative, Urine Bilirubin Negative, Urine Urobilinogen Normal, Ur Leukocyte Esterase Negative, Urine RBC 25-50 SEEN, Urine WBC 0 SEEN, Ur Squamous Epith Cells 0 SEEN, Uric Acid Crystals RARE, Urine Bacteria 0 SEEN, Coarse Granular Casts 0-5 SEEN, Urine Mucus 0 SEEN 05/04/20 18:10: Ur Random Sodium 18, Urine Creatinine 58.20 05/04/20 23:05: POC Glucose 166 H 05/05/20 03:15: WBC 13.9 H, RBC 4.39 L, Hgb 12.3 L, Hct 38.7 L, MCV 88.2, MCH 28.0, MCHC 31.8 L, RDW Std Deviation 50.9 H, RDW Coeff of Citlaly 15.8 H, Plt Count 275, MPV 10.8, Immature Gran % (Auto) 1.600 H, Neut % (Auto) 89.2 H, Lymph % (Auto) 3.7 L, [place] % (Auto) 5.1, Eos % (Auto) 0.2, Baso % (Auto) 0.2, Absolute Neuts (auto) 12.4 H, Absolute Lymphs (auto) 0.51 L, Nucleated RBC % 0 05/05/20 03:15: Sodium 145, Potassium 5.6 H, Chloride 112 H, Carbon Dioxide 27.0, Anion Gap 6, BUN 137 H*, Creatinine 1.98 H, Estim Creat Clear Calc 39.19, Est GFR (MDRD) Af Amer 43 L, Est GFR (MDRD) Non-Af 36 L, BUN/Creatinine Ratio 69.2 H, Glucose 139 H, Calcium 8.8, Phosphorus 3.9, Magnesium 3.5 H 05/05/20 05:52: Specimen Type ART, Sample Site L Radial, pH 7.29 L, Bicarbonate Actual 28.1 H, Total CO2 30, Base Excess 2, O2 Saturation 92 L, O2 % 45, ABG pCO2 58.2 H, ABG pO2 72 L, Respiration Rate 12, O2 Delivery Device Adult Vent, Vent Mode BiLevel, POC PEEP 8 05/05/20 12:56: POC Glucose 119 H Current Medications Acetaminophen (Acetaminophen 650 Mg/20 Ml Udc) 650 mg GT Q6H PRN PRN PRN Reason: Pain Score 1-10/Temp > 100.7 F Last Admin: 05/05/20 14:06 Dose: 650 mg Documented by: Albuterol Sulfate (Albuterol Sulfate 18 Gm Inhaler (200 Puffs)) 2 puff IH Q4H PRN PRN PRN Reason: Shortness of breath, wheezing Last Admin: 04/27/20 01:30 Dose: 2 puff Documented by: Albuterol/Ipratropium (Ipratropium/Albuterol Sulfate 3 Ml Ampul.Neb) 3 ml INHALATION Q6HWA.RT [facility] Last Admin: 05/05/20 13:38 Dose: 3 ml Documented by: Aspirin (Aspirin 81 Mg Tab.Chew) 81 mg GT DAILY [facility] Last Admin: 05/05/20 11:57 Dose: 81 mg Documented by: Atorvastatin Calcium (Atorvastatin Calcium 40 Mg Tablet) 40 mg GT QHS [facility] Last Admin: 05/04/20 23:16 Dose: 40 mg Documented by: Bupropion HCl (Bupropion 100 Mg Tablet) 150 mg PO BID [facility] Last Admin: 05/05/20 11:55 Dose: 150 mg Documented by: Chlorhexidine Gluconate (Chlorhexidine 15 Ml) 15 ml PO BID [facility] Last Admin: 05/05/20 11:56 Dose: 15 ml Documented by: Hydralazine HCl (Hydralazine 20 Mg/Ml Vial) 10 mg IV Q4H PRN PRN PRN Reason: systolic >160 Last Admin: 05/02/20 08:12 Dose: 10 mg Documented by: Sodium Chloride () 250 mls @ 15 mls/hr IV .[id number] PRN PRN Reason: Saline Flush Last Infusion: 05/05/20 04:00 Dose: Infused Documented by: Sodium Chloride () 250 mls @ 15 mls/hr IV .[id number] PRN PRN Reason: Additional IVPB Infusion Fentanyl Citrate 1,000 mcg/ (Sodium Chloride) 100 mls @ 5 mls/hr CONT INF .Q20H [facility]; Protocol Last Titration: 05/05/20 09:00 Dose: 175 mcg/hr, 17.5 mls/hr Documented by: Propofol (Diprivan) 1,000 mg in 100 mls @ 10.122 mls/hr CONT INF .[id number] [facility]; Protocol Last Titration: 05/05/20 09:00 Dose: 20 mcg/kg/min, 20.2 mls/hr Documented by: Pantoprazole Sodium 40 mg/ (Sodium Chloride) 110 mls @ 330 mls/hr IV Q12 [facility] Last Admin: 05/05/20 13:10 Dose: 330 mls/hr Documented by: Enteral Nutritional Formula (Vital High Protein) 1,000 mls @ 75 mls/hr GT .[id number] [facility] Last Admin: 05/05/20 03:20 Dose: 75 mls/hr Documented by: Cefepime HCl 2 gm/ Sodium (Chloride) 100 mls @ 200 mls/hr IV Q12 [facility] Insulin Human Lispro (Insulin Lispro 100 Unit/Ml Insuln.Pen) 0 unit SC Q6 [facility]; Protocol Last Admin: 05/05/20 13:11 Dose: Not Given Documented by: Metoprolol Tartrate (Metoprolol Tartrate 50 Mg Tablet) 50 mg GT BID [facility] Last Admin: 05/05/20 11:57 Dose: 50 mg Documented by: Metoprolol Tartrate (Metoprolol Tartrate 5 Mg/5 Ml Vial) 5 mg IV Q4H PRN PRN Reason: systolic >160 Last Admin: 05/02/20 05:51 Dose: 5 mg Documented by: Miscellaneous Information (Inhaler, Assist Devices 1 Each Spacer) 1 each INHALATION PRN PRN PRN Reason: WITH ALBUTEROL MDI Last Admin: 04/27/20 16:41 Dose: 1 each Documented by: Ondansetron HCl (Ondansetron 4 Mg/2 Ml Vial) 4 mg IV Q8H PRN PRN PRN Reason: NAUSEA/VOMITING Polyethylene Glycol (Polyethylene Glycol 3350 17 Gm Packet) 17 gm GT DAILY [facility] Last Admin: 05/05/20 11:58 Dose: 17 gm Documented by: Quetiapine Fumarate (Quetiapine 25 Mg Tablet) 25 mg PO BID [facility] Last Admin: 05/05/20 11:55 Dose: 25 mg Documented by: Senna/Docusate Sodium (Senna/Docusate Sodium 1 Tablet) 2 tablet GT BID [facility] Last Admin: 05/05/20 11:58 Dose: 2 tablet Documented by: Sodium Chloride (0.9% Saline Lock 10 Ml Syringe) 10 - 40 ml IV UD PRN PRN Reason: SALINE FLUSH Last Admin: 05/04/20 04:13 Dose: 10 ml Documented by: Medical Necessity - Tobacco Use Smoking Status: Never smoker Route of nutrition/ use of supplements: [] Nutritional Intake: [] IV Site: [] Lares Catheter: [] - Assessment/Plan Antibiotics: [] Assessment/Plan: [] Active and Suspected Problems Acute respiratory failure with hypoxia (Acute) COVID-19 (Acute) covid with hypoxia - completed dex, remdesivir. On eliquis. Fever resolved. Sx started around 04/14. Intubated 04/29, sputum cx with MSSA, on cefepime. May be able to stop cefepime tomorrow. Will follow, d/w nursing.
--- NOTE | 2020-05-05 15:49 | PN_ITS ---
Patient Problems: Active and Suspected Problems Acute respiratory failure with hypoxia (Acute) COVID-19 (Acute) Subjective: Patient was seen and examined today in the ICU, he remains on the ventilator at this time and sedated. I talked briefly about his care with pulmonary medicine today. Objective: General: - - Patient is sedated on the ventilator HEENT: Atraumatic, PERRLA, Normocephalic Oral: Moist Mucosa Neck: Supple, No JVD, Trachea Midline, Thyroid Normal Size and Texture Lungs: Clear to auscultation, Normal air movement, No rhonchi, No wheeze, No rales Cardiovascular: Regular rate, Regular Rhythm, Normal S1, Normal S2, No murmurs, PMI Normal, No rub noted Abdomen: Bowel Sounds Present, Soft, Non Tender, Non-Distended, Obese Extremities: No clubbing, No cyanosis, No edema, Capillary Refill Less than 3 Seconds Skin: No rashes, No breakdown Musculoskeletal: No Tenderness to Palpation of Joints or Extremities Neurological: - - Patient is sedated and on the ventilator Psych/Mental Status: - - Patient is sedated and on the ventilator - Physical Exam Vitals/I&O's: Vital Signs Temp Pulse Resp BP Pulse Ox 100.2 F H 119 H 36 H 183/79 H 91 05/05/20 06:00 05/05/20 14:23 05/05/20 14:23 05/05/20 11:57 05/05/20 14:23 Oxygen Flow Rate (L/min) 60 Oxygen Delivery Method Mechanical Ventilator Weight: 168.7 kg Body Mass Index (BMI) 49.0 Intake and Output for Last 24 Hours 05/03/20 05/04/20 05/05/20 23:59 23:59 23:59 Intake Total 3729.78 / 3759.78 3359.67 / 3979.67 2608.16 / 2608.16 Output Total 2675 / 2675 1409 / 2009 1949 / 1950 Balance 1054.78 / 1084.78 1949.67 / 1969.67 658.16 / 658.16 Laboratory Results 05/04/20 18:09: POC Glucose 168 H 05/04/20 18:10: Urine Color Yellow, Urine Clarity Clear, Urine pH 6.0, Ur Specific [place] 1.015, Urine Protein 30 H, Urine Glucose (UA) Normal, Urine Ketones Negative, Urine Occult Blood 250 H, Urine Nitrite Negative, Urine Bilirubin Negative, Urine Urobilinogen Normal, Ur Leukocyte Esterase Negative, Urine RBC 25-50 SEEN, Urine WBC 0 SEEN, Ur Squamous Epith Cells 0 SEEN, Uric Acid Crystals RARE, Urine Bacteria 0 SEEN, Coarse Granular Casts 0-5 SEEN, Urine Mucus 0 SEEN 05/04/20 18:10: Ur Random Sodium 18, Urine Creatinine 58.20 05/04/20 23:05: POC Glucose 166 H 05/05/20 03:15: WBC 13.9 H, RBC 4.39 L, Hgb 12.3 L, Hct 38.7 L, MCV 88.2, MCH 28.0, MCHC 31.8 L, RDW Std Deviation 50.9 H, RDW Coeff of Citlaly 15.8 H, Plt Count 275, MPV 10.8, Immature Gran % (Auto) 1.600 H, Neut % (Auto) 89.2 H, Lymph % (Auto) 3.7 L, [place] % (Auto) 5.1, Eos % (Auto) 0.2, Baso % (Auto) 0.2, Absolute Neuts (auto) 12.4 H, Absolute Lymphs (auto) 0.51 L, Nucleated RBC % 0 05/05/20 03:15: Sodium 145, Potassium 5.6 H, Chloride 112 H, Carbon Dioxide 27.0, Anion Gap 6, BUN 137 H*, Creatinine 1.98 H, Estim Creat Clear Calc 39.19, Est GFR (MDRD) Af Amer 43 L, Est GFR (MDRD) Non-Af 36 L, BUN/Creatinine Ratio 69.2 H, Glucose 139 H, Calcium 8.8, Phosphorus 3.9, Magnesium 3.5 H 05/05/20 05:52: Specimen Type ART, Sample Site L Radial, pH 7.29 L, Bicarbonate Actual 28.1 H, Total CO2 30, Base Excess 2, O2 Saturation 92 L, O2 % 45, ABG pCO2 58.2 H, ABG pO2 72 L, Respiration Rate 12, O2 Delivery Device Adult Vent, Vent Mode BiLevel, POC PEEP 8 05/05/20 12:56: POC Glucose 119 H 05/05/20 15:30: Hgb Pending, Hct Pending 05/05/20 15:30: Sodium Pending, Potassium Pending, Chloride Pending, Carbon Dioxide Pending, Anion Gap Pending, BUN Pending, Creatinine Pending, Est GFR (MDRD) Af Amer Pending, Est GFR (MDRD) Non-Af Pending, BUN/Creatinine Ratio Pending, Glucose Pending, Calcium Pending Current Medications Acetaminophen (Acetaminophen 650 Mg/20 Ml Udc) 650 mg GT Q6H PRN PRN PRN Reason: Pain Score 1-10/Temp > 100.7 F Last Admin: 05/05/20 14:06 Dose: 650 mg Documented by: Albuterol Sulfate (Albuterol Sulfate 18 Gm Inhaler (200 Puffs)) 2 puff IH Q4H PRN PRN PRN Reason: Shortness of breath, wheezing Last Admin: 04/27/20 01:30 Dose: 2 puff Documented by: Albuterol/Ipratropium (Ipratropium/Albuterol Sulfate 3 Ml Ampul.Neb) 3 ml INHALATION Q6HWA.RT [facility] Last Admin: 05/05/20 13:38 Dose: 3 ml Documented by: Aspirin (Aspirin 81 Mg Tab.Chew) 81 mg GT DAILY [facility] Last Admin: 05/05/20 11:57 Dose: 81 mg Documented by: Atorvastatin Calcium (Atorvastatin Calcium 40 Mg Tablet) 40 mg GT QHS [facility] Last Admin: 05/04/20 23:16 Dose: 40 mg Documented by: Bupropion HCl (Bupropion 100 Mg Tablet) 150 mg PO BID [facility] Last Admin: 05/05/20 11:55 Dose: 150 mg Documented by: Chlorhexidine Gluconate (Chlorhexidine 15 Ml) 15 ml PO BID [facility] Last Admin: 05/05/20 11:56 Dose: 15 ml Documented by: Hydralazine HCl (Hydralazine 20 Mg/Ml Vial) 10 mg IV Q4H PRN PRN PRN Reason: systolic >160 Last Admin: 05/02/20 08:12 Dose: 10 mg Documented by: Sodium Chloride () 250 mls @ 15 mls/hr IV .[id number] PRN PRN Reason: Saline Flush Last Infusion: 05/05/20 04:00 Dose: Infused Documented by: Sodium Chloride () 250 mls @ 15 mls/hr IV .[id number] PRN PRN Reason: Additional IVPB Infusion Fentanyl Citrate 1,000 mcg/ (Sodium Chloride) 100 mls @ 5 mls/hr CONT INF .Q20H [facility]; Protocol Last Titration: 05/05/20 09:00 Dose: 175 mcg/hr, 17.5 mls/hr Documented by: Propofol (Diprivan) 1,000 mg in 100 mls @ 10.122 mls/hr CONT INF .Q9H53M [facility]; Protocol Last Titration: 05/05/20 09:00 Dose: 20 mcg/kg/min, 20.2 mls/hr Documented by: Pantoprazole Sodium 40 mg/ (Sodium Chloride) 110 mls @ 330 mls/hr IV Q12 [facility] Last Admin: 05/05/20 13:10 Dose: 330 mls/hr Documented by: Enteral Nutritional Formula (Vital High Protein) 1,000 mls @ 75 mls/hr GT .[id number] [facility] Last Admin: 05/05/20 03:20 Dose: 75 mls/hr Documented by: Cefepime HCl 2 gm/ Sodium (Chloride) 100 mls @ 200 mls/hr IV Q12 [facility] Insulin Human Lispro (Insulin Lispro 100 Unit/Ml Insuln.Pen) 0 unit SC Q6 [facility]; Protocol Last Admin: 05/05/20 13:11 Dose: Not Given Documented by: Metoprolol Tartrate (Metoprolol Tartrate 50 Mg Tablet) 50 mg GT BID [facility] Last Admin: 05/05/20 11:57 Dose: 50 mg Documented by: Metoprolol Tartrate (Metoprolol Tartrate 5 Mg/5 Ml Vial) 5 mg IV Q4H PRN PRN Reason: systolic >160 Last Admin: 05/02/20 05:51 Dose: 5 mg Documented by: Miscellaneous Information (Inhaler, Assist Devices 1 Each Spacer) 1 each INHALATION PRN PRN PRN Reason: WITH ALBUTEROL MDI Last Admin: 04/27/20 16:41 Dose: 1 each Documented by: Ondansetron HCl (Ondansetron 4 Mg/2 Ml Vial) 4 mg IV Q8H PRN PRN PRN Reason: NAUSEA/VOMITING Polyethylene Glycol (Polyethylene Glycol 3350 17 Gm Packet) 17 gm GT DAILY [facility] Last Admin: 05/05/20 11:58 Dose: 17 gm Documented by: Quetiapine Fumarate (Quetiapine 25 Mg Tablet) 25 mg PO BID [facility] Last Admin: 05/05/20 11:55 Dose: 25 mg Documented by: Senna/Docusate Sodium (Senna/Docusate Sodium 1 Tablet) 2 tablet GT BID [facility] Last Admin: 05/05/20 11:58 Dose: 2 tablet Documented by: Sodium Chloride (0.9% Saline Lock 10 Ml Syringe) 10 - 40 ml IV UD PRN PRN Reason: SALINE FLUSH Last Admin: 05/04/20 04:13 Dose: 10 ml Documented by: Medical Necessity - Tobacco Use Smoking Status: Never smoker Assessment/Plan All Active Problems Acute respiratory failure with hypoxia (Acute) COVID-19 (Acute) #1 COVID-19 pneumonia-patient is being given antibiotics, critical care is managing his ventilator #2 acute hypoxic respiratory failure secondary to #1-prognosis is guarded at this time, patient is on IV antibiotics empirically #3 coronary artery disease #4 essential hypertension #5 paroxysmal atrial fibrillation-patient is on Eliquis chronically #6 morbid obesity #7 Acute renal failure-nephrology is seeing patient and monitoring fluids #8 hyperkalemia-nephrology is addressing this, patient was given Kayexalate #9 sputum culture positive for methicillin sensitive staph aureus-infectious diseases is participating in his care Inpatient E&M: [id number] Subs Hosp L2
[2020-05-05 15:57] LABS: Hematocrit 40.3 % (40-54); Hemoglobin 12.7 g/dL (13.0-16.5)
[2020-05-05 16:56] LABS: Anion Gap 6 (5-15); BUN 143 mg/dL (7-18); BUN/Creat Ratio 56.7 RATIO (10-20); Calcium,Total 9.4 mg/dL (8.5-10.1); Chloride 113 mmol/L (98-107); Creatinine, Serum 2.52 mg/dL (0.70-1.30); EST Glomerular Filtration Rate 27 mL/min (>60); Est Glom Filt Rate - Afr Amer 33 mL/min (>60); Estimated Creatinine Clearance 30.79 ml/min; Glucose 168 mg/dL (74-106); Potassium 5.8 mmol/L (3.5-5.1); Sodium Level 147 mmol/L (136-145)
--- NOTE | 2020-05-05 17:25 | US_ITS ---
STUDY: RENAL ULTRASOUND - COMPLETE REASON FOR EXAM: Male, 69 years old. ALBERTO TECHNIQUE: Ultrasound evaluation of the kidneys was performed with real-time and static dunn-scale imaging. COMPARISON: CT scan 12/21/2016. FINDINGS: Limited by patient''s size and bowel gas. RIGHT KIDNEY: Normal location of the right kidney, which is normal in size. The right kidney measures 11.9 x 6.1 x 5.8 cm. There is a normal cortex of the right kidney. The renal cortex measures 1.6 cm. There is no right renal mass or cyst. There are no right renal calculi. There is no right hydronephrosis. DISTAL RIGHT URETER: There is non-visualization of the distal right ureter. There is no demonstrated right ureterovesical junction calculus. There is no demonstrated right ureteral jet. LEFT KIDNEY: Normal location of the left kidney, which is normal in size. The left kidney measures 11.2 x 4.4 x 4.0 cm. There is a normal cortex of the left kidney. The renal cortex measures 1.4 cm. There is no left renal mass or cyst. There are no left renal calculi. There is no left hydronephrosis. DISTAL LEFT URETER: There is non-visualization of the distal left ureter. There is no demonstrated left ureterovesical junction calculus. There is no demonstrated left ureteral jet. BLADDER: The bladder is empty. US/Kidney and Bladder IMPRESSION: Very limited by patient''s size and bowel gas. No gross acute abnormalities of the kidneys. Electronically Signed: Delfin Nova MD at 21:01 EST , Service support ,
[2020-05-05] MEDS: 0.9% Saline Lock 10 ML Syringe IV ×2 (18:28→18:43)
[2020-05-05] MEDS: Insulin Lispro 100 UNIT/ML INSULN.PEN SC ×2 (18:28→23:43)
[2020-05-05] MEDS: Lactated Ringers 1,000 ML 999 ML IV (18:44)
[2020-05-05 19:06] LABS: Bedside Glucose 193 mg/dL (70-110)
[2020-05-05] MEDS: Atorvastatin Calcium 40 MG Tablet GT (21:24)
[2020-05-06] VITALS (40 sets, daily range): BP systolic 121–178; BP diastolic 38–83; PULSE 94–112; RESP 10–35; TEMP 37.4–38.2; O2SAT 89–98
[2020-05-06 01:16] LABS: Bedside Glucose 154 mg/dL (70-110)
[2020-05-06] MEDS: Propofol 10MG/Ml 1,000 MG/100 ML Bottle 20.2 MG CONT INF (01:35)
--- NOTE | 2020-05-06 04:14 | NURSING ---
This rn assuming care of this pt at this time.
[2020-05-06] MEDS: 0.9% Saline Lock 10 ML Syringe IV ×3 (04:46→16:57)
[2020-05-06 05:20] LABS: Bedside Glucose 139 mg/dL (70-110)
[2020-05-06] MEDS: TITRATION PARAMETER CHANGE 1 EACH IV (05:25)
[2020-05-06 05:33] LABS: Absolute Lymphocyte Count 0.75 X10^3/uL (0.83-4.51); Basophil# 0.03 X10^3/uL; Basophil% 0.2 % (0-1); Eosinophil# 0.02 X10^3/uL; Eosinophils% 0.1 % (0-5); Hemoglobin 11.4 g/dL (13.0-16.5); Lymphocyte # 0.75 X10^3/ul (4.0); Lymphocyte % 4.9 % (19-41); Mean Corp Hgb Conc 29.2 g/dL (32-36); Mean Corpuscular Volume 92.2 fL (80-94); Mean Platelet Vol. 10.7 fl (6.2-12.0); Monocyte# 1.15 X10^3/uL; Monocyte% 7.6 % (0-10); NRBC Flagged by Analyzer 0 % (0-5); Neutrophil # 12.97 X10^3/uL (2.7-7.7); Neutrophil % 85.4 % (47-70); Platelet Count 283 K/mm3 (150-450); RBC Distribution Width CV 16.3 % (11.6-14.6); RBC Distribution Width SD 55.6 fl (35.1-43.9); Red Blood Count 4.23 M/mm3 (4.6-6.2); White Blood Count 15.2 K/mm3 (4.4-11.0)
[2020-05-06 05:55] LABS: ALB/GLOB Ratio 0.4 RATIO (0.9-2.4); AST(SGOT) 76 U/L (15-37); Alanine Aminotransfer ALT/SGPT 105 U/L (16-61); Albumin, Serum 1.8 g/dL (3.2-5.0); Alkaline Phosphatase 96 U/L (45-117); Anion Gap 6 (5-15); BUN 174 mg/dL (7-18); BUN/Creat Ratio 52.9 RATIO (10-20); Calcium,Total 8.7 mg/dL (8.5-10.1); Chloride 111 mmol/L (98-107); Creatinine, Serum 3.29 mg/dL (0.70-1.30); EST Glomerular Filtration Rate 20 mL/min (>60); Est Glom Filt Rate - Afr Amer 24 mL/min (>60); Estimated Creatinine Clearance 23.59 ml/min; Globulin 4.7 g/dL (2.2-4.2); Glucose 136 mg/dL (74-106); Magnesium 3.6 mg/dL (1.6-2.6); Phosphorus 6.9 mg/dL (2.5-4.9); Potassium 6.4 mmol/L (3.5-5.1); Protein, Total 6.5 g/dL (6.4-8.2); Sodium Level 145 mmol/L (136-145)
[2020-05-06 06:05] LABS: Base Excess 0 mmol/L (-2 to +2); Bicarbonate 27.3 mmol/L (22-26); Blood Gas Specimen Type ART; FI02 40; Mode BiLevel; O2 Delivery Device Adult Vent; PO2 72 mmHG (75-100); RR 12; SITE R Radial; SO2 90 % (95-99); Total Carbon Dioxide 29 mmol/L; pH 7.22 (7.35-7.45)
[2020-05-06] MEDS: Propofol 10MG/Ml 1,000 MG/100 ML Bottle 14.8 MG CONT INF (06:40)
[2020-05-06] MEDS: Ipratropium/Albuterol Sulfate 3 ML AMPUL.NEB INHALATION ×3 (07:08→19:04)
[2020-05-06 07:54] LABS: CPK Total, Creatine Kinase 109 U/L (39-308); Triglycerides 163 mg/dL
[2020-05-06] MEDS: buPROPion 100 MG Tablet 150 MG PO (08:05)
[2020-05-06] MEDS: Polyethylene Glycol 3350 17 GM PACKET GT (08:05)
[2020-05-06] MEDS: Chlorhexidine 15 ML PO (08:05)
[2020-05-06] MEDS: Senna/Docusate Sodium 1 Tablet 2 TABLET GT (08:07)
[2020-05-06] MEDS: QUEtiapine 25 MG Tablet PO (08:07)
[2020-05-06] MEDS: Aspirin 81 MG TAB.CHEW GT (08:08)
[2020-05-06] MEDS: Metoprolol Tartrate 50 MG Tablet GT (08:08)
--- NOTE | 2020-05-06 10:08 | PCM.PN.ID ---
Patient Problems: Active and Suspected Problems Acute respiratory failure with hypoxia (Acute) COVID-19 (Acute) Subjective: Low grade fever, on vent, plan is for HD - Physical Exam Vitals/I&O's: Vital Signs Temp Pulse Resp BP Pulse Ox 100.2 F H 103 H 10 L 163/38 H 93 05/06/20 07:00 05/06/20 08:08 05/06/20 07:00 05/06/20 08:08 05/06/20 07:00 Oxygen Flow Rate (L/min) 60 Oxygen Delivery Method Mechanical Ventilator Weight: 164.3 kg Body Mass Index (BMI) 49.0 Intake and Output for Last 24 Hours 05/04/20 05/05/20 05/06/20 23:59 23:59 23:59 Intake Total 3359.67 / 3979.67 5373.73 / 5486.43 1210.60 / 1210.60 Output Total 1409 2650 / 2650 630 / 630 Balance 1949.67 / 1969.67 2723.73 / 2836.43 580.60 / 580.60 General: No apparent distress Lungs: Diminished Cardiovascular: Regular rate, Regular Rhythm Abdomen: Soft, Non Tender, Non-Distended Skin: No rashes Laboratory Results 05/05/20 12:56: POC Glucose 119 H 05/05/20 15:30: Hgb 12.7 L, Hct 40.3 05/05/20 15:30: Sodium 147 H, Potassium 5.8 H, Chloride 113 H, Carbon Dioxide 28.0, Anion Gap 6, BUN 143 H*, Creatinine 2.52 H, Estim Creat Clear Calc 30.79, Est GFR (MDRD) Af Amer 33 L, Est GFR (MDRD) Non-Af 27 L, BUN/Creatinine Ratio 56.7 H, Glucose 168 H, Calcium 9.4 05/05/20 18:27: POC Glucose 193 H 05/05/20 23:42: POC Glucose 154 H 05/06/20 04:50: WBC 15.2 H, RBC 4.23 L, Hgb 11.4 L, Hct 39.0 L, MCV 92.2, MCH 27.0, MCHC 29.2 L D, RDW Std Deviation 55.6 H, RDW Coeff of Citlaly 16.3 H, Plt Count 283, MPV 10.7, Immature Gran % (Auto) 1.800 H, Neut % (Auto) 85.4 H, Lymph % (Auto) 4.9 L, [place] % (Auto) 7.6, Eos % (Auto) 0.1, Baso % (Auto) 0.2, Absolute Neuts (auto) 13.0 H, Absolute Lymphs (auto) 0.75 L, Nucleated RBC % 0 05/06/20 04:50: Sodium 145, Potassium 6.4 H*, Chloride 111 H, Carbon Dioxide 28.0, Anion Gap 6, BUN 174 H*, Creatinine 3.29 H, Estim Creat Clear Calc 23.59, Est GFR (MDRD) Af Amer 24 L, Est GFR (MDRD) Non-Af 20 L, BUN/Creatinine Ratio 52.9 H, Glucose 136 H, Calcium 8.7, Phosphorus 6.9 H, Magnesium 3.6 H, Total Bilirubin 0.30, AST 76 H, ALT 105 H, Alkaline Phosphatase 96, Total Protein 6.5, Albumin 1.8 L, Globulin 4.7 H, Albumin/Globulin Ratio 0.4 L 05/06/20 04:50: Total Creatine Kinase 109, Triglycerides 163 05/06/20 04:53: POC Glucose 139 H 05/06/20 05:59: Specimen Type ART, Sample Site R Radial, pH 7.22 L, Bicarbonate Actual 27.3 H, Total CO2 29, Base Excess 0, O2 Saturation 90 L, O2 % 40, ABG pCO2 66.0 H, ABG pO2 72 L, Respiration Rate 12, O2 Delivery Device Adult Vent, Vent Mode BiLevel Current Medications Acetaminophen (Acetaminophen 650 Mg/20 Ml Udc) 650 mg GT Q6H PRN PRN PRN Reason: Pain Score 1-10/Temp > 100.7 F Last Admin: 05/05/20 14:06 Dose: 650 mg Documented by: Albuterol Sulfate (Albuterol Sulfate 18 Gm Inhaler (200 Puffs)) 2 puff IH Q4H PRN PRN PRN Reason: Shortness of breath, wheezing Last Admin: 04/27/20 01:30 Dose: 2 puff Documented by: Albuterol/Ipratropium (Ipratropium/Albuterol Sulfate 3 Ml Ampul.Neb) 3 ml INHALATION Q6HWA.RT [facility] Last Admin: 05/06/20 07:08 Dose: 3 ml Documented by: Aspirin (Aspirin 81 Mg Tab.Chew) 81 mg GT DAILY [facility] Last Admin: 05/06/20 08:08 Dose: 81 mg Documented by: Atorvastatin Calcium (Atorvastatin Calcium 40 Mg Tablet) 40 mg GT QHS [facility] Last Admin: 05/05/20 21:24 Dose: 40 mg Documented by: Bupropion HCl (Bupropion 100 Mg Tablet) 150 mg PO BID [facility] Last Admin: 05/06/20 08:05 Dose: 150 mg Documented by: Chlorhexidine Gluconate (Chlorhexidine 15 Ml) 15 ml PO BID [facility] Last Admin: 05/06/20 08:05 Dose: 15 ml Documented by: Dexamethasone Sodium Phosphate (Dexamethasone 4 Mg/Ml Vial) 6 mg IV QAM [facility] Stop: 05/15/20 10:01 Hydralazine HCl (Hydralazine 20 Mg/Ml Vial) 10 mg IV Q4H PRN PRN PRN Reason: systolic >160 Last Admin: 05/02/20 08:12 Dose: 10 mg Documented by: Sodium Chloride () 250 mls @ 15 mls/hr IV .[id number] PRN PRN Reason: Saline Flush Last Infusion: 05/05/20 04:00 Dose: Infused Documented by: Sodium Chloride () 250 mls @ 15 mls/hr IV .[id number] PRN PRN Reason: Additional IVPB Infusion Fentanyl Citrate 1,000 mcg/ (Sodium Chloride) 100 mls @ 5 mls/hr CONT INF .Q20H [facility]; Protocol Last Titration: 05/06/20 07:00 Dose: 150 mcg/hr, 15 mls/hr Documented by: Propofol (Diprivan) 1,000 mg in 100 mls @ 9.858 mls/hr CONT INF .Q10H9M [facility]; Protocol Last Titration: 05/06/20 06:45 Dose: 12.5 mcg/kg/min, 12.3 mls/hr Documented by: Pantoprazole Sodium 40 mg/ (Sodium Chloride) 110 mls @ 330 mls/hr IV Q12 [facility] Last Infusion: 05/05/20 21:54 Dose: Infused Documented by: Enteral Nutritional Formula (Vital High Protein) 1,000 mls @ 75 mls/hr GT .[id number] [facility] Last Admin: 05/05/20 20:30 Dose: 75 mls/hr Documented by: Insulin Human Lispro (Insulin Lispro 100 Unit/Ml Insuln.Pen) 0 unit SC Q6 [facility]; Protocol Last Admin: 05/06/20 04:54 Dose: Not Given Documented by: Metoprolol Tartrate (Metoprolol Tartrate 50 Mg Tablet) 50 mg GT BID [facility] Last Admin: 05/06/20 08:08 Dose: 50 mg Documented by: Metoprolol Tartrate (Metoprolol Tartrate 5 Mg/5 Ml Vial) 5 mg IV Q4H PRN PRN Reason: systolic >160 Last Admin: 05/02/20 05:51 Dose: 5 mg Documented by: Miscellaneous Information (Inhaler, Assist Devices 1 Each Spacer) 1 each INHALATION PRN PRN PRN Reason: WITH ALBUTEROL MDI Last Admin: 04/27/20 16:41 Dose: 1 each Documented by: Ondansetron HCl (Ondansetron 4 Mg/2 Ml Vial) 4 mg IV Q8H PRN PRN PRN Reason: NAUSEA/VOMITING Polyethylene Glycol (Polyethylene Glycol 3350 17 Gm Packet) 17 gm GT DAILY [facility] Last Admin: 05/06/20 08:05 Dose: 17 gm Documented by: Quetiapine Fumarate (Quetiapine 25 Mg Tablet) 25 mg PO BID [facility] Last Admin: 05/06/20 08:07 Dose: 25 mg Documented by: Senna/Docusate Sodium (Senna/Docusate Sodium 1 Tablet) 2 tablet GT BID [facility] Last Admin: 05/06/20 08:07 Dose: 2 tablet Documented by: Sodium Chloride (0.9% Saline Lock 10 Ml Syringe) 10 - 40 ml IV UD PRN PRN Reason: SALINE FLUSH Last Admin: 05/06/20 08:31 Dose: 40 ml Documented by: Medical Necessity - Tobacco Use Smoking Status: Never smoker Route of nutrition/ use of supplements: [] Nutritional Intake: [] IV Site: [] Lares Catheter: [] - Assessment/Plan Antibiotics: [] Assessment/Plan: [] Active and Suspected Problems Acute respiratory failure with hypoxia (Acute) COVID-19 (Acute) covid with hypoxia - completed remdesivir. Off eliquis, not currently any anticoagulation ordered. Sx started around 04/14. Intubated 04/29, sputum cx with MSSA, on cefepime. Will stop cefepime today. Will continue dex for another 10 days. Will follow, d/w nursing.
--- NOTE | 2020-05-06 10:37 | PCM.PN.INT ---
Subjective: Patient did okay from a hemodynamic standpoint overnight. There were attempts to place a left IJ that were unsuccessful secondary to distal obstruction, so a right IJ was placed after chest x-ray confirmed there were no complications. Patient continues to have good urine output, but has been less responsive overnight leading to decreased propofol. Patient did have some fever, but remains hemodynamically stable. Patient did have a fluid challenge yesterday. Nursing is reporting improved OG secretions. Patient has not had a bowel movement, but is passing flatus frequently. General: - - Intubated and sedated. Morbidly obese. Good vent synchrony. HEENT: Atraumatic, PERRLA, EOMI, Normocephalic, - - Scleral injection without icterus Oral: Moist Mucosa, No Gingival or Mucosal Lesions/ Ulcerations, - - Crowded posterior pharynx Neck: Supple, No Nodes, Trachea Midline, - - Right IJ is clean, dry and intact Lungs: No rhonchi, No wheeze, Diminished, Rales - Right greater than left Cardiovascular: Normal S1, Normal S2, No murmurs, No rub noted, No Gallop, Tachycardic Abdomen: Bowel Sounds Present, Soft, Non Tender, Non-Distended, Obese Extremities: No clubbing, No cyanosis, Edema - Lower extremities, - - Slightly diminished pulses peripherally Skin: - - Mottling of the lower extremities unchanged compared to previous. Musculoskeletal: No Tenderness to Palpation of Joints or Extremities Lymphatic: No Cervical, Supraclavicular, or Inguinal Adenopathy Neurological: Cranial nerves II-XII grossly intact, Neuro grossly intact Psych/Mental Status: Flat Affect Vital Signs Temp Pulse Resp BP Pulse Ox 37.9 C H 103 H 10 L 163/38 H 93 05/06/20 07:00 05/06/20 08:08 05/06/20 07:00 05/06/20 08:08 05/06/20 07:00 Oxygen Flow Rate (L/min) 60 Oxygen Delivery Method Mechanical Ventilator Weight: 164.3 kg Body Mass Index (BMI) 49.0 Intake and Output for Last 24 Hours 05/04/20 05/05/20 05/06/20 23:59 23:59 23:59 Intake Total 3359.67 / 3979.67 5373.73 / 5486.43 1210.60 / 1210.60 Output Total 1409 2650 / 2650 630 / 630 Balance 1949.67 / 1969.67 2723.73 / 2836.43 580.60 / 580.60 Labs (Last 48 Hours) 05/04/20 05/04/20 05/04/20 12:20 18:09 18:10 WBC RBC Hgb Hct MCV MCH MCHC RDW Std Deviation RDW Coeff of Citlaly Plt Count MPV Immature Gran % (Auto) Neut % (Auto) Lymph % (Auto) Crowley % (Auto) Eos % (Auto) Baso % (Auto) Absolute Neuts (auto) Absolute Lymphs (auto) Nucleated RBC % Specimen Type Sample Site pH Bicarbonate Actual Total CO2 Base Excess O2 Saturation O2 % ABG pCO2 ABG pO2 Respiration Rate O2 Delivery Device Vent Mode POC PEEP Sodium Potassium Chloride Carbon Dioxide Anion Gap BUN Creatinine Estim Creat Clear Calc Est GFR (MDRD) Af Amer Est GFR (MDRD) Non-Af BUN/Creatinine Ratio Glucose Calcium Phosphorus Magnesium Total Bilirubin AST ALT Alkaline Phosphatase Total Creatine Kinase Total Protein Albumin Globulin Albumin/Globulin Ratio Triglycerides Urine Color Yellow Urine Clarity Clear Urine pH 6.0 Ur Specific Kimball 1.015 Urine Protein 30 H Urine Glucose (UA) Normal Urine Ketones Negative Urine Occult Blood 250 H Urine Nitrite Negative Urine Bilirubin Negative Urine Urobilinogen Normal Ur Leukocyte Esterase Negative Urine RBC 25-50 SEEN Urine WBC 0 SEEN Ur Squamous Epith Cells 0 SEEN Uric Acid Crystals RARE Urine Bacteria 0 SEEN Coarse Granular Casts 0-5 SEEN Urine Mucus 0 SEEN Ur Random Sodium Urine Creatinine POC Glucose 138 H 168 H 05/04/20 05/04/20 05/05/20 18:10 23:05 03:15 WBC 13.9 H RBC 4.39 L Hgb 12.3 L Hct 38.7 L MCV 88.2 MCH 28.0 MCHC 31.8 L RDW Std Deviation 50.9 H RDW Coeff of Citlaly 15.8 H Plt Count 275 MPV 10.8 Immature Gran % (Auto) 1.600 H Neut % (Auto) 89.2 H Lymph % (Auto) 3.7 L Crowley % (Auto) 5.1 Eos % (Auto) 0.2 Baso % (Auto) 0.2 Absolute Neuts (auto) 12.4 H Absolute Lymphs (auto) 0.51 L Nucleated RBC % 0 Specimen Type Sample Site pH Bicarbonate Actual Total CO2 Base Excess O2 Saturation O2 % ABG pCO2 ABG pO2 Respiration Rate O2 Delivery Device Vent Mode POC PEEP Sodium Potassium Chloride Carbon Dioxide Anion Gap BUN Creatinine Estim Creat Clear Calc Est GFR (MDRD) Af Amer Est GFR (MDRD) Non-Af BUN/Creatinine Ratio Glucose Calcium Phosphorus Magnesium Total Bilirubin AST ALT Alkaline Phosphatase Total Creatine Kinase Total Protein Albumin Globulin Albumin/Globulin Ratio Triglycerides Urine Color Urine Clarity Urine pH Ur Specific Kimball Urine Protein Urine Glucose (UA) Urine Ketones Urine Occult Blood Urine Nitrite Urine Bilirubin Urine Urobilinogen Ur Leukocyte Esterase Urine RBC Urine WBC Ur Squamous Epith Cells Uric Acid Crystals Urine Bacteria Coarse Granular Casts Urine Mucus Ur Random Sodium 18 Urine Creatinine 58.20 POC Glucose 166 H 05/05/20 05/05/20 05/05/20 03:15 05:52 12:56 WBC RBC Hgb Hct MCV MCH MCHC RDW Std Deviation RDW Coeff of Citlaly Plt Count MPV Immature Gran % (Auto) Neut % (Auto) Lymph % (Auto) Crowley % (Auto) Eos % (Auto) Baso % (Auto) Absolute Neuts (auto) Absolute Lymphs (auto) Nucleated RBC % Specimen Type ART Sample Site L Radial pH 7.29 L Bicarbonate Actual 28.1 H Total CO2 30 Base Excess 2 O2 Saturation 92 L O2 % 45 ABG pCO2 58.2 H ABG pO2 72 L Respiration Rate 12 O2 Delivery Device Adult Vent Vent Mode BiLevel POC PEEP 8 Sodium 145 Potassium 5.6 H Chloride 112 H Carbon Dioxide 27.0 Anion Gap 6 BUN 137 H* Creatinine 1.98 H Estim Creat Clear Calc 39.19 Est GFR (MDRD) Af Amer 43 L Est GFR (MDRD) Non-Af 36 L BUN/Creatinine Ratio 69.2 H Glucose 139 H Calcium 8.8 Phosphorus 3.9 Magnesium 3.5 H Total Bilirubin AST ALT Alkaline Phosphatase Total Creatine Kinase Total Protein Albumin Globulin Albumin/Globulin Ratio Triglycerides Urine Color Urine Clarity Urine pH Ur Specific Kimball Urine Protein Urine Glucose (UA) Urine Ketones Urine Occult Blood Urine Nitrite Urine Bilirubin Urine Urobilinogen Ur Leukocyte Esterase Urine RBC Urine WBC Ur Squamous Epith Cells Uric Acid Crystals Urine Bacteria Coarse Granular Casts Urine Mucus Ur Random Sodium Urine Creatinine POC Glucose 119 H 05/05/20 05/05/20 05/05/20 15:30 15:30 18:27 WBC RBC Hgb 12.7 L Hct 40.3 MCV MCH MCHC RDW Std Deviation RDW Coeff of Citlaly Plt Count MPV Immature Gran % (Auto) Neut % (Auto) Lymph % (Auto) Crowley % (Auto) Eos % (Auto) Baso % (Auto) Absolute Neuts (auto) Absolute Lymphs (auto) Nucleated RBC % Specimen Type Sample Site pH Bicarbonate Actual Total CO2 Base Excess O2 Saturation O2 % ABG pCO2 ABG pO2 Respiration Rate O2 Delivery Device Vent Mode POC PEEP Sodium 147 H Potassium 5.8 H Chloride 113 H Carbon Dioxide 28.0 Anion Gap 6 BUN 143 H* Creatinine 2.52 H Estim Creat Clear Calc 30.79 Est GFR (MDRD) Af Amer 33 L Est GFR (MDRD) Non-Af 27 L BUN/Creatinine Ratio 56.7 H Glucose 168 H Calcium 9.4 Phosphorus Magnesium Total Bilirubin AST ALT Alkaline Phosphatase Total Creatine Kinase Total Protein Albumin Globulin Albumin/Globulin Ratio Triglycerides Urine Color Urine Clarity Urine pH Ur Specific Kim[place] Urine Protein Urine Glucose (UA) Urine Ketones Urine Occult Blood Urine Nitrite Urine Bilirubin Urine Urobilinogen Ur Leukocyte Esterase Urine RBC Urine WBC Ur Squamous Epith Cells Uric Acid Crystals Urine Bacteria Coarse Granular Casts Urine Mucus Ur Random Sodium Urine Creatinine POC Glucose 193 H 05/05/20 05/06/20 05/06/20 23:42 04:50 04:50 WBC 15.2 H RBC 4.23 L Hgb 11.4 L Hct 39.0 L MCV 92.2 MCH 27.0 MCHC 29.2 L D RDW Std Deviation 55.6 H RDW Coeff of Citlaly 16.3 H Plt Count 283 MPV 10.7 Immature Gran % (Auto) 1.800 H Neut % (Auto) 85.4 H Lymph % (Auto) 4.9 L Crowley % (Auto) 7.6 Eos % (Auto) 0.1 Baso % (Auto) 0.2 Absolute Neuts (auto) 13.0 H Absolute Lymphs (auto) 0.75 L Nucleated RBC % 0 Specimen Type Sample Site pH Bicarbonate Actual Total CO2 Base Excess O2 Saturation O2 % ABG pCO2 ABG pO2 Respiration Rate O2 Delivery Device Vent Mode POC PEEP Sodium 145 Potassium 6.4 H* Chloride 111 H Carbon Dioxide 28.0 Anion Gap 6 BUN 174 H* Creatinine 3.29 H Estim Creat Clear Calc 23.59 Est GFR (MDRD) Af Amer 24 L Est GFR (MDRD) Non-Af 20 L BUN/Creatinine Ratio 52.9 H Glucose 136 H Calcium 8.7 Phosphorus 6.9 H Magnesium 3.6 H Total Bilirubin 0.30 AST 76 H ALT 105 H Alkaline Phosphatase 96 Total Creatine Kinase Total Protein 6.5 Albumin 1.8 L Globulin 4.7 H Albumin/Globulin Ratio 0.4 L Triglycerides Urine Color Urine Clarity Urine pH Ur Specific Kimball Urine Protein Urine Glucose (UA) Urine Ketones Urine Occult Blood Urine Nitrite Urine Bilirubin Urine Urobilinogen Ur Leukocyte Esterase Urine RBC Urine WBC Ur Squamous Epith Cells Uric Acid Crystals Urine Bacteria Coarse Granular Casts Urine Mucus Ur Random Sodium Urine Creatinine POC Glucose 154 H 05/06/20 05/06/20 05/06/20 04:50 04:53 05:59 WBC RBC Hgb Hct MCV MCH MCHC RDW Std Deviation RDW Coeff of Citlaly Plt Count MPV Immature Gran % (Auto) Neut % (Auto) Lymph % (Auto) Crowley % (Auto) Eos % (Auto) Baso % (Auto) Absolute Neuts (auto) Absolute Lymphs (auto) Nucleated RBC % Specimen Type ART Sample Site R Radial pH 7.22 L Bicarbonate Actual 27.3 H Total CO2 29 Base Excess 0 O2 Saturation 90 L O2 % 40 ABG pCO2 66.0 H ABG pO2 72 L Respiration Rate 12 O2 Delivery Device Adult Vent Vent Mode BiLevel POC PEEP Sodium Potassium Chloride Carbon Dioxide Anion Gap BUN Creatinine Estim Creat Clear Calc Est GFR (MDRD) Af Amer Est GFR (MDRD) Non-Af BUN/Creatinine Ratio Glucose Calcium Phosphorus Magnesium Total Bilirubin AST ALT Alkaline Phosphatase Total Creatine Kinase 109 Total Protein Albumin Globulin Albumin/Globulin Ratio Triglycerides 163 Urine Color Urine Clarity Urine pH Ur Specific [place] Urine Protein Urine Glucose (UA) Urine Ketones Urine Occult Blood Urine Nitrite Urine Bilirubin Urine Urobilinogen Ur Leukocyte Esterase Urine RBC Urine WBC Ur Squamous Epith Cells Uric Acid Crystals Urine Bacteria Coarse Granular Casts Urine Mucus Ur Random Sodium Urine Creatinine POC Glucose 139 H Clinical Impression(s) from Imaging Studies Chest X-Ray 05/05/20 12:30 IMPRESSION: Improved aeration of both lungs. The support tubes are in good position. Electronically Signed: Shar Abraham, at 14:18 EST , Service support , Chest X-Ray 05/05/20 13:20 IMPRESSION: Stable airspace and interstitial opacifications in both lung lucero. Stable appearance of the support lines and tubes, no complications Right IJ central venous catheter has been placed since the previous study, tip is in the mid SVC Electronically Signed: Tobin Jensen MD at 14:45 EST , Service support , Renal Ultrasound 05/05/20 17:25 IMPRESSION: Very limited by patient''s size and bowel gas. No gross acute abnormalities of the kidneys. Electronically Signed: Delfin Nova MD at 21:01 EST , Service support , Medical Necessity - Tobacco Use Smoking Status: Never smoker Assessment/Plan All Active Problems Acute respiratory failure with hypoxia (Acute) COVID-19 (Acute) RECOMMENDATIONS: 1. Wean fentanyl and propofol as tolerated, along with scheduled Seroquel. 2. Consult surgery for possible vascular access for dialysis 3. Continue APRV mode of mechanical ventilation and wean FiO2 as tolerated. No changes secondary to metabolic acidosis 4. Continue tube feeds as tolerated. 5. Continue antimicrobials per ID recommendations. 6. Eliquis held secondary to probable stress gastritis 7. Continue Decadron as ordered to complete treatment course. 8. Continue appropriate GI prophylaxis. IMPRESSIONS: 1. Acute hypoxemic respiratory failure secondary to ARDS due to COVID-19/MSSA pneumonia The patient was initially diagnosed 1 week prior to hospital admission. Although attempts were made to utilize high flow oxygen and noninvasive positive pressure ventilatory support, the patient continued to decompensate from a respiratory perspective, requiring transfer to ICU and subsequent intubation on April 29. The patient has gone on to develop fulminant ARDS with high ventilator requirements. The patient has completed a treatment course of remdesivir and will remain on Decadron. The patient will remain on appropriate antimicrobials well per ID recommendations. The patient is currently tolerating APRV mode of mechanical ventilation which will be continued. However, patient will not tolerate further reductions given increasing acidosis noted on morning ABG. 2. ALBERTO on CKD Possibly prerenal in etiology. Patient continues to have decent urine output, but uremia and creatinine are significantly elevated. Patient also has hyperkalemia. Clinical suspicion patient will require hemodialysis today, but await formal nephrology recommendations. Surgery will be consulted for access issues. Attempts at the left IJ were unsuccessful yesterday. 3. Obesity/hypertension/hyperlipidemia/paroxysmal atrial fibrillation/coronary artery disease/GERD Complicates care, management, recovery and prognosis. Continue home medications as indicated. Discussed with family members about the severity of patient's prognosis. They understand and want to proceed in an aggressive fashion. TIME: 45 minutes of critical care time, independent of procedures, was spent addressing the patient's acute hypoxemic respiratory failure secondary to ARDS due to COVID-19 pneumonia, paroxysmal atrial fibrillation, coronary artery disease, ALBERTO, review of all data and collaboration with care team. (7 AM to 8:30 AM) 9xxxx: [id number] Critical care first hour
--- NOTE | 2020-05-06 10:42 | CON.PCM_ITS ---
Reason for Consult Date of Consultation: 05/06/20 History of Present Illness: The patient is a 69 year old M Admitted to the ICU with Covid, pneumonia status post intubation with acute kidney injury need for IV access/dialysis catheter.Patient did initially have a right IJ triple-lumen catheter placed yesterday for IV access. Attempted to do left IJ dialysis catheter however unable to thread the wire-Procedure was aborted. Past Medical History Past Medical History (Chronic Problems): Chronic Problems Aortic stenosis (Chronic) CAD (coronary artery disease) (Chronic) Cardiac murmur (Chronic) Rheumatic fever (Chronic) Hyperlipidemia (Chronic) Hypertension (Chronic) Atrial fibrillation (Chronic) Allergies Penicillins Allergy (Verified 04/25/20 20:39) Unknown Sulfa (Sulfonamide Antibiotics) Allergy (Verified 04/25/20 20:39) Unknown warfarin [From Coumadin] Adverse Reaction (Verified 04/25/20 20:39) Unknown Home Medications: Ambulatory Orders Medication Instructions Recorded Fluticasone 0.05% [Flonase Nasal 2 spray NASAL PRN PRN 08/14/13 Dawn] Atorvastatin Calcium [Lipitor] 40 mg PO QHS tablet 03/10/16 Aspirin [Aspirin, Baby] 81 mg PO DAILY@0800 06/06/16 Hydrochlorothiazide [Hctz] 25 mg PO DAILY 06/06/16 Losartan Potassium [Cozaar] 100 mg PO DAILY 06/06/16 Apixaban [Eliquis] 5 mg PO BID 07/08/16 buPROPion XL [Wellbutrin Xl] 300 mg PO DAILY 01/28/19 Benzonatate [Tessalon Perle] 200 mg PO TID PRN PRN 04/25/20 Citalopram [Celexa] 40 mg PO DAILY 04/25/20 Metoprolol Tartrate 50 mg PO BID 04/25/20 Oxycodone HCl/Acetaminophen 1 - 2 tab PO Q6H PRN PRN 04/25/20 [Percocet 5/325] Pantoprazole Sodium [Protonix] 40 mg PO DAILY 04/25/20 cycloBENZAPRine HCl [Flexeril] 10 mg PO QHS 04/25/20 traMADol [Ultram (G)] 50 mg PO Q6H PRN PRN 04/25/20 Surgical History: coronary bypass surgery, herniorrhaphy, - Psychiatric History: Depression Lives: Spouse/ Significant Other Smoking Status: Never smoker Alcohol: None Drugs: None - *Family History Maternal History Items: Heart Disease Paternal History Items: Heart Disease Sibling History Items: Heart Disease - Brother: CAD; CABG; ischemic cardiomyopathy; status post ICD Review of Systems Unable to obtain accurate/complete ROS d/t: Patient is intubated and sedated Patient Problems: Active and Suspected Problems Acute respiratory failure with hypoxia (Acute) COVID-19 (Acute) - Physical Exam Vitals/I&O's: Vital Signs Temp Pulse Resp BP Pulse Ox 100.2 F H 103 H 10 L 163/38 H 93 05/06/20 07:00 05/06/20 08:08 05/06/20 07:00 05/06/20 08:08 05/06/20 07:00 Oxygen Flow Rate (L/min) 60 Oxygen Delivery Method Mechanical Ventilator Weight: 362 lb 3.512 oz Body Mass Index (BMI) 49.0 Intake and Output for Last 24 Hours 05/04/20 05/05/20 05/06/20 23:59 23:59 23:59 Intake Total 3359.67 / 3979.67 5373.73 / 5486.43 1210.60 / 1210.60 Output Total 1409 2650 / 2650 630 / 630 Balance 1949.67 / 1969.67 2723.73 / 2836.43 580.60 / 580.60 General: - - Patient is intubated and sedated Neck: - - Right IJ triple-lumen catheter is present Extremities: - - Patchy mottling color on lower extremities however lower extremities are warm bilaterally Laboratory Results 05/05/20 12:56: POC Glucose 119 H 05/05/20 15:30: Hgb 12.7 L, Hct 40.3 05/05/20 15:30: Sodium 147 H, Potassium 5.8 H, Chloride 113 H, Carbon Dioxide 28.0, Anion Gap 6, BUN 143 H*, Creatinine 2.52 H, Estim Creat Clear Calc 30.79, Est GFR (MDRD) Af Amer 33 L, Est GFR (MDRD) Non-Af 27 L, BUN/Creatinine Ratio 56.7 H, Glucose 168 H, Calcium 9.4 05/05/20 18:27: POC Glucose 193 H 05/05/20 23:42: POC Glucose 154 H 05/06/20 04:50: WBC 15.2 H, RBC 4.23 L, Hgb 11.4 L, Hct 39.0 L, MCV 92.2, MCH 27.0, MCHC 29.2 L D, RDW Std Deviation 55.6 H, RDW Coeff of Citlaly 16.3 H, Plt Count 283, MPV 10.7, Immature Gran % (Auto) 1.800 H, Neut % (Auto) 85.4 H, Lymph % (Auto) 4.9 L, [place] % (Auto) 7.6, Eos % (Auto) 0.1, Baso % (Auto) 0.2, Absolute Neuts (auto) 13.0 H, Absolute Lymphs (auto) 0.75 L, Nucleated RBC % 0 05/06/20 04:50: Sodium 145, Potassium 6.4 H*, Chloride 111 H, Carbon Dioxide 28.0, Anion Gap 6, BUN 174 H*, Creatinine 3.29 H, Estim Creat Clear Calc 23.59, Est GFR (MDRD) Af Amer 24 L, Est GFR (MDRD) Non-Af 20 L, BUN/Creatinine Ratio 52.9 H, Glucose 136 H, Calcium 8.7, Phosphorus 6.9 H, Magnesium 3.6 H, Total Bilirubin 0.30, AST 76 H, ALT 105 H, Alkaline Phosphatase 96, Total Protein 6.5, Albumin 1.8 L, Globulin 4.7 H, Albumin/Globulin Ratio 0.4 L 05/06/20 04:50: Total Creatine Kinase 109, Triglycerides 163 05/06/20 04:53: POC Glucose 139 H 05/06/20 05:59: Specimen Type ART, Sample Site R Radial, pH 7.22 L, Bicarbonate Actual 27.3 H, Total CO2 29, Base Excess 0, O2 Saturation 90 L, O2 % 40, ABG pCO2 66.0 H, ABG pO2 72 L, Respiration Rate 12, O2 Delivery Device Adult Vent, Vent Mode BiLevel Current Medications Acetaminophen (Acetaminophen 650 Mg/20 Ml Udc) 650 mg GT Q6H PRN PRN PRN Reason: Pain Score 1-10/Temp > 100.7 F Last Admin: 05/05/20 14:06 Dose: 650 mg Documented by: Albuterol Sulfate (Albuterol Sulfate 18 Gm Inhaler (200 Puffs)) 2 puff IH Q4H PRN PRN PRN Reason: Shortness of breath, wheezing Last Admin: 04/27/20 01:30 Dose: 2 puff Documented by: Albuterol/Ipratropium (Ipratropium/Albuterol Sulfate 3 Ml Ampul.Neb) 3 ml INHALATION Q6HWA.RT [facility] Last Admin: 05/06/20 07:08 Dose: 3 ml Documented by: Aspirin (Aspirin 81 Mg Tab.Chew) 81 mg GT DAILY [facility] Last Admin: 05/06/20 08:08 Dose: 81 mg Documented by: Atorvastatin Calcium (Atorvastatin Calcium 40 Mg Tablet) 40 mg GT QHS [facility] Last Admin: 05/05/20 21:24 Dose: 40 mg Documented by: Bupropion HCl (Bupropion 100 Mg Tablet) 150 mg PO BID [facility] Last Admin: 05/06/20 08:05 Dose: 150 mg Documented by: Chlorhexidine Gluconate (Chlorhexidine 15 Ml) 15 ml PO BID [facility] Last Admin: 05/06/20 08:05 Dose: 15 ml Documented by: Dexamethasone Sodium Phosphate (Dexamethasone 4 Mg/Ml Vial) 6 mg IV QAM [facility] Stop: 05/15/20 10:01 Hydralazine HCl (Hydralazine 20 Mg/Ml Vial) 10 mg IV Q4H PRN PRN PRN Reason: systolic >160 Last Admin: 05/02/20 08:12 Dose: 10 mg Documented by: Sodium Chloride () 250 mls @ 15 mls/hr IV .[id number] PRN PRN Reason: Saline Flush Last Infusion: 05/05/20 04:00 Dose: Infused Documented by: Sodium Chloride () 250 mls @ 15 mls/hr IV .[id number] PRN PRN Reason: Additional IVPB Infusion Fentanyl Citrate 1,000 mcg/ (Sodium Chloride) 100 mls @ 5 mls/hr CONT INF .Q20H [facility]; Protocol Last Titration: 05/06/20 07:00 Dose: 150 mcg/hr, 15 mls/hr Documented by: Propofol (Diprivan) 1,000 mg in 100 mls @ 9.858 mls/hr CONT INF .Q10H9M [facility]; Protocol Last Titration: 05/06/20 06:45 Dose: 12.5 mcg/kg/min, 12.3 mls/hr Documented by: Pantoprazole Sodium 40 mg/ (Sodium Chloride) 110 mls @ 330 mls/hr IV Q12 [facility] Last Infusion: 05/05/20 21:54 Dose: Infused Documented by: Enteral Nutritional Formula (Vital High Protein) 1,000 mls @ 75 mls/hr GT .[id number] [facility] Last Admin: 05/05/20 20:30 Dose: 75 mls/hr Documented by: Insulin Human Lispro (Insulin Lispro 100 Unit/Ml Insuln.Pen) 0 unit SC Q6 [facility]; Protocol Last Admin: 05/06/20 04:54 Dose: Not Given Documented by: Metoprolol Tartrate (Metoprolol Tartrate 50 Mg Tablet) 50 mg GT BID [facility] Last Admin: 05/06/20 08:08 Dose: 50 mg Documented by: Metoprolol Tartrate (Metoprolol Tartrate 5 Mg/5 Ml Vial) 5 mg IV Q4H PRN PRN Reason: systolic >160 Last Admin: 05/02/20 05:51 Dose: 5 mg Documented by: Miscellaneous Information (Inhaler, Assist Devices 1 Each Spacer) 1 each INHALATION PRN PRN PRN Reason: WITH ALBUTEROL MDI Last Admin: 04/27/20 16:41 Dose: 1 each Documented by: Ondansetron HCl (Ondansetron 4 Mg/2 Ml Vial) 4 mg IV Q8H PRN PRN PRN Reason: NAUSEA/VOMITING Polyethylene Glycol (Polyethylene Glycol 3350 17 Gm Packet) 17 gm GT DAILY [facility] Last Admin: 05/06/20 08:05 Dose: 17 gm Documented by: Quetiapine Fumarate (Quetiapine 25 Mg Tablet) 25 mg PO BID [facility] Last Admin: 05/06/20 08:07 Dose: 25 mg Documented by: Senna/Docusate Sodium (Senna/Docusate Sodium 1 Tablet) 2 tablet GT BID [facility] Last Admin: 05/06/20 08:07 Dose: 2 tablet Documented by: Sodium Chloride (0.9% Saline Lock 10 Ml Syringe) 10 - 40 ml IV UD PRN PRN Reason: SALINE FLUSH Last Admin: 05/06/20 08:31 Dose: 40 ml Documented by: Assessment/Plan All Active Problems Acute respiratory failure with hypoxia (Acute) COVID-19 (Acute) 69-year-old male with Covid, pneumonia, intubated and sedated, need for IV access acute kidney injury need for temporary dialysis catheter. 1. We will place temporary dialysis catheter as well as triple-lumen central catheter for IV access. Consent was obtained from the .Proceeded with the left IJ triple-lumen central line then rewired the right IJ triple-lumen catheter for a temporary dialysis catheter. Sharon Nunes M.D. Pager: [phone] [facility] [address] [place] [address], Outpatient [place], [address] [place] [address] Office: [phone] Inpatient E&M: [id number] Init Hosp L2
--- NOTE | 2020-05-06 11:25 | NURSING ---
Dr. Nunes present in pt room, prep for line placement 1125 HR 98 R 22 BP 143/65 SpO2 94 1130 HR 97 R 21 BP 145/64 SpO2 94 1135 HR 100 R 21 BP 130/65 SpO2 94 LIJ TL placed prep for line placement 1150 HR 96 R 25 BP 152/66 SpO2 94 RIJ TL removed, guidewire in place 1155 HR 98 R 19 BP 142/59 SpO2 94 1200 HR 98 R 23 BP 136/59 SpO2 93 1205 HR 97 R24 BP 144/62 SpO2 93 RIJ Marhukar placed 1220 CXR completed
--- NOTE | 2020-05-06 12:16 | RAD_ITS ---
STUDY: X-RAY CHEST REASON FOR EXAM: Male, 69 years old. Line placement TECHNIQUE: Single AP portable view of the chest. COMPARISON: Comparison is made with prior study dated 05/05/2020. FINDINGS: An endotracheal tube is in situ. The tip is at 1.9 cm proximal to the yisel. An orogastric tube is seen with the tip in the fundal portion of the stomach. A left-sided central line has been placed with the tip at the junction of the superior vena cava and left brachiocephalic vein. A right-sided double-lumen catheter is visualized with the tip in the right atrium. EKG electrodes are seen. Stable appearance of both lungs. Sternal cerclage wires and vascular clips are present from a prior sternotomy and coronary artery bypass graft procedure (CABG). Normal mediastinum and katie. Normal visualized pulmonary arteries. There is atherosclerotic calcification of the aortic arch with tortuosity. There are diffuse degenerative changes of the visualized thoracic spine. Normal visualized ribs, clavicles, and shoulders. There is no demonstrated abnormality of the visualized soft tissue structures of the upper abdomen. RAD/CXR for Line Placement IMPRESSION: Stable examination. Interval placement of a left central catheter with the tip at the junction of the superior vena cava and left brachiocephalic vein. Electronically Signed: Shar Abraham, at 12:35 EST , Service support ,
--- NOTE | 2020-05-06 12:46 | OP.PCM_ITS ---
Report of Operation Date of Procedure: 05/06/20 Pre-Operative Diagnosis: Need for IV access, acute kidney injury, Covid positive Post-Operative Diagnosis: Same Surgery/Procedure Performed:: Insertion of left IJ triple-lumen catheter, rewiring of the right IJ triple-lumen catheter to a temporary dialysis catheter Type of Anesthesia:: Local Estimated Blood Loss (mL): Minimal Description of Procedure: Procedure: A time-out was completed to verify correct patient, indication, medication allergies, procedure, coagulation studies, informed consent signed, and equipment needed. The patient was placed in the supine position for a central line placement to the Left IJ vein. The patients Left neck was prepped using chlorhexidine and a full body sterile drape was applied. 1% lidocaine was used to anesthetize the surrounding skin. A Triple-lumen central line catheter introduced into the internal jugular vein using the modified Seldinger technique with the assistance of ultrasound. The site was dilated. The catheter was threaded smoothly over the guidewire, the guidewire was removed easily, nonpulsatile blood returned. All ports were aspirated of air and flushed with sterile saline. The catheter was sutured in place and covered with an occlusive dressing impregnated with chlorhexidine. The patient was reprepped and draped for the right neck. The current right IJ triple-lumen catheter was also cleaned with chlorhexidine. The patients Right neck was prepped using chlorhexidine and a full body sterile drape was applied. 1% lidocaine was used to anesthetize the surrounding skin. A [employer] Elite 12 [place] x16 cm Temporary hemodialysis catheter introduced into the internal jugular vein After the guidewire was placed through the brown port of the triple-lumen catheter. This did insert easily. The triple-lumen catheter was removed with the guidewire staying in place. The Dialysis catheter was threaded smoothly over the guidewire, the guidewire was removed easily, nonp ulsatile blood returned. All ports were aspirated of air and flushed with sterile saline Then flushed with 1:10,000 heparin 1.3 mL to each port. The catheter was sutured in place and covered with an occlusive dressing impregnated with chlorhexidine. Patient tolerated procedure well. Postoperative chest x-ray ordered. Addendum: Chest x-ray shows no pneumothorax, right IJ dialysis catheter at the junction of the superior vena cava and atrium in the left IJ triple-lumen in the superior vena cava. - Complications None
[2020-05-06 13:21] LABS: Bedside Glucose 133 mg/dL (70-110)
[2020-05-06] MEDS: Heparin 10,000 UNITS/10 ML Vial 2600 UNITS IV (13:59)
[2020-05-06] MEDS: Propofol 10MG/Ml 1,000 MG/100 ML Bottle 7.4 MG CONT INF (16:00)
[2020-05-06] MEDS: dexAMETHasone 4 MG/ML Vial 6 MG IV (16:58)
--- NOTE | 2020-05-06 17:12 | PCM.PROGNOTE ---
Patient Problems: Active and Suspected Problems Acute respiratory failure with hypoxia (Acute) COVID-19 (Acute) Subjective: Patient was seen and examined today, he remains sedated and on the ventilator, a dialysis catheter was placed today by general surgery, patient is due to start dialysis today, his kidney functions were much worse today. Objective: General: - - Patient is sedated on the ventilator HEENT: Atraumatic, PERRLA, Normocephalic Oral: Moist Mucosa Neck: Supple, No JVD, Trachea Midline, Thyroid Normal Size and Texture Lungs: Clear to auscultation, Normal air movement, No rhonchi, No wheeze, No rales Cardiovascular: Regular rate, Regular Rhythm, Normal S1, Normal S2, No murmurs, PMI Normal, No rub noted Abdomen: Bowel Sounds Present, Soft, Non Tender, Non-Distended, Obese Extremities: No clubbing, No cyanosis, No edema, Capillary Refill Less than 3 Seconds Skin: No rashes, No breakdown Musculoskeletal: No Tenderness to Palpation of Joints or Extremities Neurological: - - Patient is sedated and on the ventilator Psych/Mental Status: - - Patient is sedated and on the ventilator - Physical Exam Vitals/I&O's: Vital Signs Temp Pulse Resp BP Pulse Ox 100.1 F H 101 H 33 H 127/63 H 93 05/06/20 13:57 05/06/20 15:00 05/06/20 14:30 05/06/20 13:57 05/06/20 14:30 Oxygen Flow Rate (L/min) 60 Oxygen Delivery Method Mechanical Ventilator Weight: 164.3 kg Body Mass Index (BMI) 49.0 Intake and Output for Last 24 Hours 05/04/20 05/05/20 05/06/20 23:59 23:59 23:59 Intake Total 3359.67 / 3979.67 5373.73 / 5486.43 1974.90 / 1974.90 Output Total 1409 2650 / 2650 895 / 895 Balance 1949.67 / 1969.67 2723.73 / 2836.43 1079.90 / 1079.90 Laboratory Results 05/05/20 18:27: POC Glucose 193 H 05/05/20 23:42: POC Glucose 154 H 05/06/20 04:50: WBC 15.2 H, RBC 4.23 L, Hgb 11.4 L, Hct 39.0 L, MCV 92.2, MCH 27.0, MCHC 29.2 L D, RDW Std Deviation 55.6 H, RDW Coeff of Citlaly 16.3 H, Plt Count 283, MPV 10.7, Immature Gran % (Auto) 1.800 H, Neut % (Auto) 85.4 H, Lymph % (Auto) 4.9 L, [place] % (Auto) 7.6, Eos % (Auto) 0.1, Baso % (Auto) 0.2, Absolute Neuts (auto) 13.0 H, Absolute Lymphs (auto) 0.75 L, Nucleated RBC % 0 05/06/20 04:50: Sodium 145, Potassium 6.4 H*, Chloride 111 H, Carbon Dioxide 28.0, Anion Gap 6, BUN 174 H*, Creatinine 3.29 H, Estim Creat Clear Calc 23.59, Est GFR (MDRD) Af Amer 24 L, Est GFR (MDRD) Non-Af 20 L, BUN/Creatinine Ratio 52.9 H, Glucose 136 H, Calcium 8.7, Phosphorus 6.9 H, Magnesium 3.6 H, Total Bilirubin 0.30, AST 76 H, ALT 105 H, Alkaline Phosphatase 96, Total Protein 6.5, Albumin 1.8 L, Globulin 4.7 H, Albumin/Globulin Ratio 0.4 L 05/06/20 04:50: Total Creatine Kinase 109, Triglycerides 163 05/06/20 04:53: POC Glucose 139 H 05/06/20 05:59: Specimen Type ART, Sample Site R Radial, pH 7.22 L, Bicarbonate Actual 27.3 H, Total CO2 29, Base Excess 0, O2 Saturation 90 L, O2 % 40, ABG pCO2 66.0 H, ABG pO2 72 L, Respiration Rate 12, O2 Delivery Device Adult Vent, Vent Mode BiLevel 05/06/20 13:15: POC Glucose 133 H Current Medications Acetaminophen (Acetaminophen 650 Mg/20 Ml Udc) 650 mg GT Q6H PRN PRN PRN Reason: Pain Score 1-10/Temp > 100.7 F Last Admin: 05/05/20 14:06 Dose: 650 mg Documented by: Albuterol Sulfate (Albuterol Sulfate 18 Gm Inhaler (200 Puffs)) 2 puff IH Q4H PRN PRN PRN Reason: Shortness of breath, wheezing Last Admin: 04/27/20 01:30 Dose: 2 puff Documented by: Albuterol/Ipratropium (Ipratropium/Albuterol Sulfate 3 Ml Ampul.Neb) 3 ml INHALATION Q6HWA.RT [facility] Last Admin: 05/06/20 13:48 Dose: 3 ml Documented by: Aspirin (Aspirin 81 Mg Tab.Chew) 81 mg GT DAILY [facility] Last Admin: 05/06/20 08:08 Dose: 81 mg Documented by: Atorvastatin Calcium (Atorvastatin Calcium 40 Mg Tablet) 40 mg GT QHS [facility] Last Admin: 05/05/20 21:24 Dose: 40 mg Documented by: Bupropion HCl (Bupropion 100 Mg Tablet) 150 mg PO BID [facility] Last Admin: 05/06/20 08:05 Dose: 150 mg Documented by: Chlorhexidine Gluconate (Chlorhexidine 15 Ml) 15 ml PO BID [facility] Last Admin: 05/06/20 08:05 Dose: 15 ml Documented by: Dexamethasone Sodium Phosphate (Dexamethasone 4 Mg/Ml Vial) 6 mg IV QAM [facility] Stop: 05/15/20 10:01 Last Admin: 05/06/20 16:58 Dose: 6 mg Documented by: Hydralazine HCl (Hydralazine 20 Mg/Ml Vial) 10 mg IV Q4H PRN PRN PRN Reason: systolic >160 Last Admin: 05/02/20 08:12 Dose: 10 mg Documented by: Sodium Chloride () 250 mls @ 15 mls/hr IV .[id number] PRN PRN Reason: Saline Flush Last Infusion: 05/05/20 04:00 Dose: Infused Documented by: Sodium Chloride () 250 mls @ 15 mls/hr IV .[id number] PRN PRN Reason: Additional IVPB Infusion Fentanyl Citrate 1,000 mcg/ (Sodium Chloride) 100 mls @ 5 mls/hr CONT INF .Q20H [facility]; Protocol Last Titration: 05/06/20 14:00 Dose: 150 mcg/hr, 15 mls/hr Documented by: Propofol (Diprivan) 1,000 mg in 100 mls @ 9.858 mls/hr CONT INF .Q10H9M [facility]; Protocol Last Titration: 05/06/20 14:00 Dose: 7.5 mcg/kg/min, 7.4 mls/hr Documented by: Pantoprazole Sodium 40 mg/ (Sodium Chloride) 110 mls @ 330 mls/hr IV Q12 [facility] Last Infusion: 05/06/20 14:11 Dose: Infused Documented by: Enteral Nutritional Formula (Vital High Protein) 1,000 mls @ 75 mls/hr GT .[id number] [facility] Last Admin: 05/05/20 20:30 Dose: 75 mls/hr Documented by: Insulin Human Lispro (Insulin Lispro 100 Unit/Ml Insuln.Pen) 0 unit SC Q6 [facility]; Protocol Last Admin: 05/06/20 14:11 Dose: Not Given Documented by: Metoprolol Tartrate (Metoprolol Tartrate 50 Mg Tablet) 50 mg GT BID [facility] Last Admin: 05/06/20 08:08 Dose: 50 mg Documented by: Metoprolol Tartrate (Metoprolol Tartrate 5 Mg/5 Ml Vial) 5 mg IV Q4H PRN PRN Reason: systolic >160 Last Admin: 05/02/20 05:51 Dose: 5 mg Documented by: Miscellaneous Information (Inhaler, Assist Devices 1 Each Spacer) 1 each INHALATION PRN PRN PRN Reason: WITH ALBUTEROL MDI Last Admin: 04/27/20 16:41 Dose: 1 each Documented by: Ondansetron HCl (Ondansetron 4 Mg/2 Ml Vial) 4 mg IV Q8H PRN PRN PRN Reason: NAUSEA/VOMITING Polyethylene Glycol (Polyethylene Glycol 3350 17 Gm Packet) 17 gm GT DAILY [facility] Last Admin: 05/06/20 08:05 Dose: 17 gm Documented by: Quetiapine Fumarate (Quetiapine 25 Mg Tablet) 25 mg PO BID [facility] Last Admin: 05/06/20 08:07 Dose: 25 mg Documented by: Senna/Docusate Sodium (Senna/Docusate Sodium 1 Tablet) 2 tablet GT BID [facility] Last Admin: 05/06/20 08:07 Dose: 2 tablet Documented by: Sodium Chloride (0.9% Saline Lock 10 Ml Syringe) 10 - 40 ml IV UD PRN PRN Reason: SALINE FLUSH Last Admin: 05/06/20 16:57 Dose: 20 ml Documented by: Medical Necessity - Tobacco Use Smoking Status: Never smoker Assessment/Plan All Active Problems Acute respiratory failure with hypoxia (Acute) COVID-19 (Acute) #1 COVID-19 pneumonia-patient completed his treatment for COVID-19 pneumonia, he is off antibiotics at this time. #2 acute hypoxic respiratory failure secondary to #1-prognosis is guarded at this time #3 coronary artery disease #4 essential hypertension #5 paroxysmal atrial fibrillation-patient is on Eliquis chronically #6 morbid obesity #7 Acute renal failure-nephrology is seeing patient, patient will be undergoing dialysis #8 hyperkalemia-nephrology is addressing this #9 sputum culture positive for methicillin sensitive staph aureus-infectious diseases is participating in his care, it appears that the patient is off antibiotics at this time Inpatient E&M: [id number] Subs Hosp L2
[2020-05-06] MEDS: Vital High Protein 1,000 ML 75 ML GT (18:25)
[2020-05-06 21:46] LABS: Bedside Glucose 140 mg/dL (70-110)
--- NOTE | 2020-05-06 23:49 | DIALYSIS ---
Addendum entered by Shaggy Healy 05/06/20 23:59: Right IJ CVC is positional. Lines needed to be reversed during HD tx. Original Note: Hemodialysis complete, 2 hour run, 1K and 2k baths, net fluid removed = 1000 ml. Patient tolerated HD tx well Right IJ CVC: Site moist from sweat, dressing reinforced. Dressing would best be changed after bathing patient. Lumen flushed with NS, filled to volume with Heparin, clamped and capped. Report given to primary RN, Chapis Fernandes
[2020-05-07] VITALS (43 sets, daily range): BP systolic 81–208; BP diastolic 39–78; PULSE 82–104; RESP 12–38; TEMP 36.8–37.8; O2SAT 90–99
[2020-05-07] MEDS: Chlorhexidine 15 ML PO ×3 (00:40→20:47)
[2020-05-07] MEDS: QUEtiapine 25 MG Tablet PO ×3 (00:40→20:49)
[2020-05-07] MEDS: Atorvastatin Calcium 40 MG Tablet GT ×2 (00:40→20:48)
[2020-05-07] MEDS: Senna/Docusate Sodium 1 Tablet 2 TABLET GT ×3 (00:40→20:48)
[2020-05-07] MEDS: Propofol 10MG/Ml 1,000 MG/100 ML Bottle 7.4 MG CONT INF (00:41)
[2020-05-07] MEDS: Metoprolol Tartrate 50 MG Tablet GT ×3 (00:41→20:49)
[2020-05-07] MEDS: buPROPion 100 MG Tablet 150 MG PO ×3 (00:41→20:48)
[2020-05-07] MEDS: Insulin Lispro 100 UNIT/ML INSULN.PEN SC ×3 (00:47→17:26)
[2020-05-07 01:01] LABS: Bedside Glucose 195 mg/dL (70-110)
[2020-05-07] MEDS: TITRATION PARAMETER CHANGE 1 EACH IV (01:12)
[2020-05-07] MEDS: 0.9% Saline Lock 10 ML Syringe IV ×3 (05:00→18:27)
[2020-05-07 05:19] LABS: Absolute Lymphocyte Count 0.47 X10^3/uL (0.83-4.51); Absolute Neutrophil Count 15.5 X10^3/uL (2.0-7.7); Basophil# 0.04 X10^3/uL; Basophil% 0.2 % (0-1); Eosinophil# 0.01 X10^3/uL; Eosinophils% 0.1 % (0-5); Hematocrit 39.5 % (40-54); Hemoglobin 11.9 g/dL (13.0-16.5); Lymphocyte # 0.47 X10^3/ul (4.0); Lymphocyte % 2.8 % (19-41); Mean Corp Hgb Conc 30.1 g/dL (32-36); Mean Corpuscular Hgb 27.6 pg (27.0-32.0); Mean Corpuscular Volume 91.6 fL (80-94); Mean Platelet Vol. 11.1 fl (6.2-12.0); Monocyte# 0.78 X10^3/uL; Monocyte% 4.6 % (0-10); NRBC Flagged by Analyzer 0 % (0-5); Neutrophil # 15.47 X10^3/uL (2.7-7.7); POSITIVE DIFFERENTIAL YES; Platelet Count 278 K/mm3 (150-450); RBC Distribution Width CV 15.9 % (11.6-14.6); RBC Distribution Width SD 54.3 fl (35.1-43.9); Red Blood Count 4.31 M/mm3 (4.6-6.2)
[2020-05-07 05:24] LABS: Differential Indicated SCAN CRITERIA MET
[2020-05-07 05:36] LABS: Anion Gap 8 (5-15); BUN 152 mg/dL (7-18); BUN/Creat Ratio 39.8 RATIO (10-20); Calcium,Total 8.4 mg/dL (8.5-10.1); Chloride 107 mmol/L (98-107); Creatinine, Serum 3.82 mg/dL (0.70-1.30); EST Glomerular Filtration Rate 17 mL/min (>60); Est Glom Filt Rate - Afr Amer 20 mL/min (>60); Estimated Creatinine Clearance 20.31 ml/min; Glucose 173 mg/dL (74-106); Potassium 7.1 mmol/L (3.5-5.1); Sodium Level 141 mmol/L (136-145)
[2020-05-07 05:58] LABS: Differential Comment SCANNED
--- NOTE | 2020-05-07 06:29 | EKG12_ITS ---
Test Reason : HIGH K+ Blood Pressure : / mmHG Vent. Rate : 091 BPM Atrial Rate : 091 BPM P-R Int : 182 ms QRS Dur : 086 ms QT Int : 330 ms P-R-T Axes : 029 032 064 degrees QTc Int : 405 ms Normal sinus rhythm with sinus arrhythmia Normal ECG Confirmed by ARCHANA WU, UMBERTO ([id number]), assistant editor JERRELL GILMAN ([id number]) on 05/12/2020 10:02:03 AM Referred By: CARLTON Confirmed By:UMBERTO MAGAÑA MD
[2020-05-07 06:35] LABS: Bedside Glucose 194 mg/dL (70-110)
--- NOTE | 2020-05-07 06:52 | EKG12_ITS ---
Test Reason : RHYTHM CHANGE Blood Pressure : / mmHG Vent. Rate : 101 BPM Atrial Rate : 101 BPM P-R Int : 162 ms QRS Dur : 094 ms QT Int : 340 ms P-R-T Axes : 018 008 075 degrees QTc Int : 440 ms Sinus tachycardia Nonspecific ST and T wave abnormality Confirmed by ARCHANA WU, UMBERTO ([id number]), editorial writer JERRELL GILMAN ([id number]) on 05/12/2020 9:56:57 AM Referred By: CARLTON Confirmed By:UMBERTO MAGAÑA MD
[2020-05-07] MEDS: Ipratropium/Albuterol Sulfate 3 ML AMPUL.NEB INHALATION ×3 (07:01→19:10)
[2020-05-07 07:10] LABS: Base Excess 0 mmol/L (-2 to +2); Bicarbonate 28.3 mmol/L (22-26); Blood Gas Specimen Type ART; FI02 45; Mode BiLevel; O2 Delivery Device ET Tube; PO2 84 mmHG (75-100); PS 5; RR 12; SITE R Radial; SO2 93 % (95-99); Total Carbon Dioxide 31 mmol/L; pCO2 74.8 mmHg (35-45); pH 7.19 (7.35-7.45)
[2020-05-07] MEDS: Propofol 10MG/Ml 1,000 MG/100 ML Bottle 4.9 MG CONT INF ×2 (08:00→13:00)
[2020-05-07 08:06] LABS: Allen Test Positive; Base Excess 1 mmol/L (-2 to +2); Bicarbonate 28.5 mmol/L (22-26); Blood Gas Specimen Type ART; FI02 50; Mode AC; O2 Delivery Device Adult Vent; PEEP 14; PO2 79 mmHG (75-100); RR 16; SITE R Radial; SO2 92 % (95-99); Total Carbon Dioxide 31 mmol/L; Vt 500; pCO2 72.7 mmHg (35-45)
--- NOTE | 2020-05-07 08:31 | PCM.PN.INT ---
Subjective: Patient did okay over the last 24 hours. Patient was able to tolerate hemodialysis yesterday evening with 1 L volume removal. Tube feeds had to be held overnight secondary to increased residuals. Patient has yet to have a bowel movement despite multiple interventions. Patient did have a mild fever overnight. No significant changing and mottling reported per nursing. Objective: Given acidosis noted on morning ABG, patient was transitioned to assist control. Repeat ABG showed continued acidosis, so minute ventilation has been increased. Patient's final vent settings were assist control, rate of 18, tidal volume of 500, PEEP of 14 and 50% FiO2. General: - - Intubated and sedated. RASS -3. HEENT: Atraumatic, PERRLA, EOMI, Normocephalic, - - Slight scleral injection without icterus Oral: Moist Mucosa, No Gingival or Mucosal Lesions/ Ulcerations, - - Crowded posterior pharynx Neck: Supple, No Nodes, Trachea Midline, - - Lines are clean, dry and intact Lungs: No rhonchi, No wheeze, Diminished, Rhonchi - Left greater than right, - - Symmetric expansion Cardiovascular: Regular rate, Regular Rhythm, Normal S1, Normal S2, No murmurs, No rub noted, No Gallop Abdomen: Bowel Sounds Present, Soft, Non Tender, Non-Distended, Obese Extremities: No clubbing, No cyanosis, Edema Skin: - - Still with mottling of the lower extremities, but not progressing. Musculoskeletal: No Tenderness to Palpation of Joints or Extremities - Cool feet to palpation. Lymphatic: No Cervical, Supraclavicular, or Inguinal Adenopathy Neurological: Cranial nerves II-XII grossly intact, Neuro grossly intact, Motor Exam 5/5 strength throughout Psych/Mental Status: Flat Affect Vital Signs Temp Pulse Resp BP Pulse Ox 37.3 C 98 16 140/63 H 98 05/07/20 05:00 05/07/20 07:02 05/07/20 07:02 05/07/20 06:00 05/07/20 07:02 Oxygen Flow Rate (L/min) 60 Oxygen Delivery Method Mechanical Ventilator Weight: 163 kg Body Mass Index (BMI) 49.0 Intake and Output for Last 24 Hours 05/05/20 05/06/20 05/07/20 23:59 23:59 23:59 Intake Total 5373.73 / 5486.43 2946.50 / 2961.50 615.15 / 615.15 Output Total 2650 / 2650 2820 / 2820 80 / 80 Balance 2723.73 / 2836.43 126.50 / 141.50 535.15 / 535.15 Labs (Last 48 Hours) 05/05/20 05/05/20 05/05/20 12:56 15:30 15:30 WBC RBC Hgb 12.7 L Hct 40.3 MCV MCH MCHC RDW Std Deviation RDW Coeff of Citlaly Plt Count MPV Immature Gran % (Auto) Neut % (Auto) Lymph % (Auto) [place] % (Auto) Eos % (Auto) Baso % (Auto) Absolute Neuts (auto) Absolute Lymphs (auto) Nucleated RBC % Differential Comment Specimen Type Sample Site pH Bicarbonate Actual Total CO2 Base Excess O2 Saturation O2 % ABG pCO2 ABG pO2 Philip Test Respiration Rate O2 Delivery Device Vent Mode Tidal Volume POC PEEP POC Pressure Suppt Sodium 147 H Potassium 5.8 H Chloride 113 H Carbon Dioxide 28.0 Anion Gap 6 BUN 143 H* Creatinine 2.52 H Estim Creat Clear Calc 30.79 Est GFR (MDRD) Af Amer 33 L Est GFR (MDRD) Non-Af 27 L BUN/Creatinine Ratio 56.7 H Glucose 168 H Calcium 9.4 Phosphorus Magnesium Total Bilirubin AST ALT Alkaline Phosphatase Total Creatine Kinase Total Protein Albumin Globulin Albumin/Globulin Ratio Triglycerides Hep Bs Antigen Hep Bs Antibody Hep B Core Total Ab POC Glucose 119 H 05/05/20 05/05/20 05/06/20 18:27 23:42 04:50 WBC 15.2 H RBC 4.23 L Hgb 11.4 L Hct 39.0 L MCV 92.2 MCH 27.0 MCHC 29.2 L D RDW Std Deviation 55.6 H RDW Coeff of Citlaly 16.3 H Plt Count 283 MPV 10.7 Immature Gran % (Auto) 1.800 H Neut % (Auto) 85.4 H Lymph % (Auto) 4.9 L [place] % (Auto) 7.6 Eos % (Auto) 0.1 Baso % (Auto) 0.2 Absolute Neuts (auto) 13.0 H Absolute Lymphs (auto) 0.75 L Nucleated RBC % 0 Differential Comment Specimen Type Sample Site pH Bicarbonate Actual Total CO2 Base Excess O2 Saturation O2 % ABG pCO2 ABG pO2 Philip Test Respiration Rate O2 Delivery Device Vent Mode Tidal Volume POC PEEP POC Pressure Suppt Sodium Potassium Chloride Carbon Dioxide Anion Gap BUN Creatinine Estim Creat Clear Calc Est GFR (MDRD) Af Amer Est GFR (MDRD) Non-Af BUN/Creatinine Ratio Glucose Calcium Phosphorus Magnesium Total Bilirubin AST ALT Alkaline Phosphatase Total Creatine Kinase Total Protein Albumin Globulin Albumin/Globulin Ratio Triglycerides Hep Bs Antigen Hep Bs Antibody Hep B Core Total Ab POC Glucose 193 H 154 H 05/06/20 05/06/20 05/06/20 04:50 04:50 04:53 WBC RBC Hgb Hct MCV MCH MCHC RDW Std Deviation RDW Coeff of Citlaly Plt Count MPV Immature Gran % (Auto) Neut % (Auto) Lymph % (Auto) [place] % (Auto) Eos % (Auto) Baso % (Auto) Absolute Neuts (auto) Absolute Lymphs (auto) Nucleated RBC % Differential Comment Specimen Type Sample Site pH Bicarbonate Actual Total CO2 Base Excess O2 Saturation O2 % ABG pCO2 ABG pO2 Philip Test Respiration Rate O2 Delivery Device Vent Mode Tidal Volume POC PEEP POC Pressure Suppt Sodium 145 Potassium 6.4 H* Chloride 111 H Carbon Dioxide 28.0 Anion Gap 6 BUN 174 H* Creatinine 3.29 H Estim Creat Clear Calc 23.59 Est GFR (MDRD) Af Amer 24 L Est GFR (MDRD) Non-Af 20 L BUN/Creatinine Ratio 52.9 H Glucose 136 H Calcium 8.7 Phosphorus 6.9 H Magnesium 3.6 H Total Bilirubin 0.30 AST 76 H ALT 105 H Alkaline Phosphatase 96 Total Creatine Kinase 109 Total Protein 6.5 Albumin 1.8 L Globulin 4.7 H Albumin/Globulin Ratio 0.4 L Triglycerides 163 Hep Bs Antigen Hep Bs Antibody Hep B Core Total Ab POC Glucose 139 H 05/06/20 05/06/20 05/06/20 05:59 13:15 18:15 WBC RBC Hgb Hct MCV MCH MCHC RDW Std Deviation RDW Coeff of Citlaly Plt Count MPV Immature Gran % (Auto) Neut % (Auto) Lymph % (Auto) [place] % (Auto) Eos % (Auto) Baso % (Auto) Absolute Neuts (auto) Absolute Lymphs (auto) Nucleated RBC % Differential Comment Specimen Type ART Sample Site R Radial pH 7.22 L Bicarbonate Actual 27.3 H Total CO2 29 Base Excess 0 O2 Saturation 90 L O2 % 40 ABG pCO2 66.0 H ABG pO2 72 L Philip Test Respiration Rate 12 O2 Delivery Device Adult Vent Vent Mode BiLevel Tidal Volume POC PEEP POC Pressure Suppt Sodium Potassium Chloride Carbon Dioxide Anion Gap BUN Creatinine Estim Creat Clear Calc Est GFR (MDRD) Af Amer Est GFR (MDRD) Non-Af BUN/Creatinine Ratio Glucose Calcium Phosphorus Magnesium Total Bilirubin AST ALT Alkaline Phosphatase Total Creatine Kinase Total Protein Albumin Globulin Albumin/Globulin Ratio Triglycerides Hep Bs Antigen Hep Bs Antibody Hep B Core Total Ab POC Glucose 133 H 140 H 05/07/20 05/07/20 05/07/20 00:32 04:40 05:11 WBC 17.0 H RBC 4.31 L Hgb 11.9 L Hct 39.5 L MCV 91.6 MCH 27.6 MCHC 30.1 L RDW Std Deviation 54.3 H RDW Coeff of Citlaly 15.9 H Plt Count 278 MPV 11.1 Immature Gran % (Auto) 1.300 H Neut % (Auto) 91.0 H Lymph % (Auto) 2.8 L [place] % (Auto) 4.6 Eos % (Auto) 0.1 Baso % (Auto) 0.2 Absolute Neuts (auto) 15.5 H Absolute Lymphs (auto) 0.47 L Nucleated RBC % 0 Differential Comment SCANNED Specimen Type Sample Site pH Bicarbonate Actual Total CO2 Base Excess O2 Saturation O2 % ABG pCO2 ABG pO2 Philip Test Respiration Rate O2 Delivery Device Vent Mode Tidal Volume POC PEEP POC Pressure Suppt Sodium Potassium Chloride Carbon Dioxide Anion Gap BUN Creatinine Estim Creat Clear Calc Est GFR (MDRD) Af Amer Est GFR (MDRD) Non-Af BUN/Creatinine Ratio Glucose Calcium Phosphorus Magnesium Total Bilirubin AST ALT Alkaline Phosphatase Total Creatine Kinase Total Protein Albumin Globulin Albumin/Globulin Ratio Triglycerides Hep Bs Antigen Hep Bs Antibody Hep B Core Total Ab POC Glucose 195 H 194 H 05/07/20 05/07/20 05/07/20 05:11 05:11 05:11 WBC RBC Hgb Hct MCV MCH MCHC RDW Std Deviation RDW Coeff of Citlaly Plt Count MPV Immature Gran % (Auto) Neut % (Auto) Lymph % (Auto) [place] % (Auto) Eos % (Auto) Baso % (Auto) Absolute Neuts (auto) Absolute Lymphs (auto) Nucleated RBC % Differential Comment Specimen Type Sample Site pH Bicarbonate Actual Total CO2 Base Excess O2 Saturation O2 % ABG pCO2 ABG pO2 Philip Test Respiration Rate O2 Delivery Device Vent Mode Tidal Volume POC PEEP POC Pressure Suppt Sodium 141 Potassium 7.1 H* Chloride 107 Carbon Dioxide 26.0 Anion Gap 8 BUN 152 H* Creatinine 3.82 H Estim Creat Clear Calc 20.31 Est GFR (MDRD) Af Amer 20 L Est GFR (MDRD) Non-Af 17 L BUN/Creatinine Ratio 39.8 H Glucose 173 H Calcium 8.4 L Phosphorus Magnesium Total Bilirubin AST ALT Alkaline Phosphatase Total Creatine Kinase Total Protein Albumin Globulin Albumin/Globulin Ratio Triglycerides Hep Bs Antigen Pending Hep Bs Antibody Pending Hep B Core Total Ab Pending POC Glucose 05/07/20 05/07/20 07:01 08:00 WBC RBC Hgb Hct MCV MCH MCHC RDW Std Deviation RDW Coeff of Citlaly Plt Count MPV Immature Gran % (Auto) Neut % (Auto) Lymph % (Auto) [place] % (Auto) Eos % (Auto) Baso % (Auto) Absolute Neuts (auto) Absolute Lymphs (auto) Nucleated RBC % Differential Comment Specimen Type ART ART Sample Site R Radial R Radial pH 7.19 L* 7.20 L Bicarbonate Actual 28.3 H 28.5 H Total CO2 31 31 Base Excess 0 1 O2 Saturation 93 L 92 L O2 % 45 50 ABG pCO2 74.8 H* 72.7 H* ABG pO2 84 79 Philip Test Positive Respiration Rate 12 16 O2 Delivery Device ET Tube Adult Vent Vent Mode BiLevel AC Tidal Volume 500 POC PEEP 14 POC Pressure Suppt 5 Sodium Potassium Chloride Carbon Dioxide Anion Gap BUN Creatinine Estim Creat Clear Calc Est GFR (MDRD) Af Amer Est GFR (MDRD) Non-Af BUN/Creatinine Ratio Glucose Calcium Phosphorus Magnesium Total Bilirubin AST ALT Alkaline Phosphatase Total Creatine Kinase Total Protein Albumin Globulin Albumin/Globulin Ratio Triglycerides Hep Bs Antigen Hep Bs Antibody Hep B Core Total Ab POC Glucose Clinical Impression(s) from Imaging Studies Chest X-Ray 05/06/20 12:16 IMPRESSION: Stable examination. Interval placement of a left central catheter with the tip at the junction of the superior vena cava and left brachiocephalic vein. Electronically Signed: Shar Abraham, at 12:35 EST , Service support , Medical Necessity - Tobacco Use Smoking Status: Never smoker Assessment/Plan All Active Problems Acute respiratory failure with hypoxia (Acute) COVID-19 (Acute) RECOMMENDATIONS: 1. Wean fentanyl and propofol as tolerated, along with scheduled Seroquel. 2. Dialysis per nephrology 3. Repeat ABG in a.m., continue current vent settings. Wean FiO2 and PEEP as tolerated. 4. Aggressive bowel regimen with possible continue tube feeds as tolerated. 5. Continue antimicrobials per ID recommendations. 6. Continue to hold Eliquis 7. Continue Decadron as ordered to complete treatment course. 8. Continue appropriate GI prophylaxis. IMPRESSIONS: 1. Acute hypoxemic respiratory failure secondary to ARDS due to COVID-19/MSSA pneumonia The patient was initially diagnosed 1 week prior to hospital admission. Although attempts were made to utilize high flow oxygen and noninvasive positive pressure ventilatory support, the patient continued to decompensate from a respiratory perspective, requiring transfer to ICU and subsequent intubation on April 29. The patient has gone on to develop fulminant ARDS with high ventilator requirements. The patient has completed a treatment course of remdesivir and will remain on Decadron. The patient will remain on appropriate antimicrobials well per ID recommendations. Patient transition from APRV this morning to assist control secondary to respiratory acidosis. Multiple changes have been made, but likely okay to repeat ABG in a.m. wean FiO2 and PEEP as tolerated. 2. ALBERTO on CKD/hyperkalemia Possibly prerenal in etiology. Patient continues to have decent urine output, but uremia and creatinine are significantly elevated. Patient also has hyperkalemia. Patient receiving hemodialysis now with a low potassium bath. EKG did not show any significant changes. Volume removal is ideal, but not necessarily needed as oxygenation appears to be relatively stable. 3. Obesity/hypertension/hyperlipidemia/paroxysmal atrial fibrillation/coronary artery disease/GERD Complicates care, management, recovery and prognosis. Continue home medications as indicated. Discussed with family members about the severity of patient's prognosis. They understand and want to proceed in an aggressive fashion. TIME: 50 minutes of critical care time, independent of procedures, was spent addressing the patient's acute hypoxemic respiratory failure secondary to ARDS due to COVID-19 pneumonia, paroxysmal atrial fibrillation, coronary artery disease, ALBERTO, review of all data and collaboration with care team. (7:30 AM to 8:30 AM) [id number]: [id number] Critical care first hour
--- NOTE | 2020-05-07 08:59 | CPS ---
Critical results given to Dr. Petersen.
--- NOTE | 2020-05-07 09:00 | CPS ---
Critical results given to Dr. Petersen.
[2020-05-07 11:26] LABS: Bedside Glucose 142 mg/dL (70-110)
[2020-05-07 11:33] LABS: Hepatitis B Surface Antibody Non-Reactive; Hepatitis B Surface Antigen Non-Reactive (Nonreactive)
--- NOTE | 2020-05-07 12:07 | DIALYSIS ---
Hemodialysis treatment complete. RIJ dialysis CVC flushed with NS and locked with heparin per order. 400ml fluid removed.
[2020-05-07] MEDS: Polyethylene Glycol 3350 17 GM PACKET GT (12:36)
[2020-05-07] MEDS: Aspirin 81 MG TAB.CHEW GT (12:38)
[2020-05-07] MEDS: Heparin 10,000 UNITS/10 ML Vial IV (12:38)
[2020-05-07] MEDS: dexAMETHasone 4 MG/ML Vial 6 MG IV (12:39)
[2020-05-07] MEDS: Bisacodyl 10 MG Suppository RECTAL (12:39)
[2020-05-07] MEDS: Vital High Protein 1,000 ML 75 ML GT (12:40)
--- NOTE | 2020-05-07 16:15 | PCM.PN.REN ---
Patient Problems: Active and Suspected Problems Acute respiratory failure with hypoxia (Acute) COVID-19 (Acute) Subjective: Following for ALBERTO. Pt is on vent. Not on pressor. Cannot do ROS. Objective: Exam limited because of COVID19 infection and need to prevent inadvertent transmission of the virus. - Physical Exam Vitals/I&O's: Vital Signs Temp Pulse Resp BP Pulse Ox 99.3 F H 83 22 H 141/56 H 93 05/07/20 12:06 05/07/20 15:39 05/07/20 15:00 05/07/20 15:00 05/07/20 15:00 Oxygen Flow Rate (L/min) 60 Oxygen Delivery Method Mechanical Ventilator Weight: 163 kg Body Mass Index (BMI) 49.0 Intake and Output for Last 24 Hours 05/05/20 05/06/20 05/07/20 23:59 23:59 23:59 Intake Total 5373.73 / 5486.43 2946.50 / 2961.50 1547.75 / 1547.75 Output Total 2650 / 2650 2820 / 2820 540 / 540 Balance 2723.73 / 2836.43 126.50 / 141.50 1007.75 / 1007.75 Laboratory Results 05/06/20 18:15: POC Glucose 140 H 05/07/20 00:32: POC Glucose 195 H 05/07/20 04:40: POC Glucose 194 H 05/07/20 05:11: WBC 17.0 H, RBC 4.31 L, Hgb 11.9 L, Hct 39.5 L, MCV 91.6, MCH 27.6, MCHC 30.1 L, RDW Std Deviation 54.3 H, RDW Coeff of Citlaly 15.9 H, Plt Count 278, MPV 11.1, Immature Gran % (Auto) 1.300 H, Neut % (Auto) 91.0 H, Lymph % (Auto) 2.8 L, [place] % (Auto) 4.6, Eos % (Auto) 0.1, Baso % (Auto) 0.2, Absolute Neuts (auto) 15.5 H, Absolute Lymphs (auto) 0.47 L, Nucleated RBC % 0, Differential Comment SCANNED 05/07/20 05:11: Sodium 141, Potassium 7.1 H*, Chloride 107, Carbon Dioxide 26.0, Anion Gap 8, BUN 152 H*, Creatinine 3.82 H, Estim Creat Clear Calc 20.31, Est GFR (MDRD) Af Amer 20 L, Est GFR (MDRD) Non-Af 17 L, BUN/Creatinine Ratio 39.8 H, Glucose 173 H, Calcium 8.4 L 05/07/20 05:11: Hep B Core Total Ab Pending 05/07/20 05:11: Hep Bs Antigen Non-Reactive, Hep Bs Antibody Non-Reactive 05/07/20 07:01: Specimen Type ART, Sample Site R Radial, pH 7.19 L*, Bicarbonate Actual 28.3 H, Total CO2 31, Base Excess 0, O2 Saturation 93 L, O2 % 45, ABG pCO2 74.8 H*, ABG pO2 84, Respiration Rate 12, O2 Delivery Device ET Tube, Vent Mode BiLevel, POC Pressure Suppt 5 05/07/20 08:00: Specimen Type ART, Sample Site R Radial, pH 7.20 L, Bicarbonate Actual 28.5 H, Total CO2 31, Base Excess 1, O2 Saturation 92 L, O2 % 50, ABG pCO2 72.7 H*, ABG pO2 79, Philip Test Positive, Respiration Rate 16, O2 Delivery Device Adult Vent, Vent Mode AC, Tidal Volume 500, POC PEEP 14 05/07/20 11:04: POC Glucose 142 H Current Medications Acetaminophen (Acetaminophen 650 Mg/20 Ml Udc) 650 mg GT Q6H PRN PRN PRN Reason: Pain Score 1-10/Temp > 100.7 F Last Admin: 05/05/20 14:06 Dose: 650 mg Documented by: Albuterol Sulfate (Albuterol Sulfate 18 Gm Inhaler (200 Puffs)) 2 puff IH Q4H PRN PRN PRN Reason: Shortness of breath, wheezing Last Admin: 04/27/20 01:30 Dose: 2 puff Documented by: Albuterol/Ipratropium (Ipratropium/Albuterol Sulfate 3 Ml Ampul.Neb) 3 ml INHALATION Q6HWA.RT [facility] Last Admin: 05/07/20 14:22 Dose: 3 ml Documented by: Aspirin (Aspirin 81 Mg Tab.Chew) 81 mg GT DAILY [facility] Last Admin: 05/07/20 12:38 Dose: 81 mg Documented by: Atorvastatin Calcium (Atorvastatin Calcium 40 Mg Tablet) 40 mg GT QHS [facility] Last Admin: 05/07/20 00:40 Dose: 40 mg Documented by: Bupropion HCl (Bupropion 100 Mg Tablet) 150 mg PO BID [facility] Last Admin: 05/07/20 12:36 Dose: 150 mg Documented by: Chlorhexidine Gluconate (Chlorhexidine 15 Ml) 15 ml PO BID [facility] Last Admin: 05/07/20 12:40 Dose: 15 ml Documented by: Dexamethasone Sodium Phosphate (Dexamethasone 4 Mg/Ml Vial) 6 mg IV QAM [facility] Stop: 05/15/20 10:01 Last Admin: 05/07/20 12:39 Dose: 6 mg Documented by: Hydralazine HCl (Hydralazine 20 Mg/Ml Vial) 10 mg IV Q4H PRN PRN PRN Reason: systolic >160 Last Admin: 05/02/20 08:12 Dose: 10 mg Documented by: Sodium Chloride () 250 mls @ 15 mls/hr IV .[id number] PRN PRN Reason: Saline Flush Last Infusion: 05/05/20 04:00 Dose: Infused Documented by: Sodium Chloride () 250 mls @ 15 mls/hr IV .[id number] PRN PRN Reason: Additional IVPB Infusion Fentanyl Citrate 1,000 mcg/ (Sodium Chloride) 100 mls @ 5 mls/hr CONT INF .Q20H [facility]; Protocol Last Titration: 05/07/20 15:00 Dose: 100 mcg/hr, 10 mls/hr Documented by: Propofol (Diprivan) 1,000 mg in 100 mls @ 9.78 mls/hr CONT INF .[id number] [facility]; Protocol Last Titration: 05/07/20 15:00 Dose: 5 mcg/kg/min, 4.9 mls/hr Documented by: Pantoprazole Sodium 40 mg/ (Sodium Chloride) 110 mls @ 330 mls/hr IV Q12 [facility] Last Infusion: 05/07/20 10:24 Dose: Infused Documented by: Enteral Nutritional Formula (Vital High Protein) 1,000 mls @ 75 mls/hr GT .[id number] [facility] Last Admin: 05/07/20 12:40 Dose: 75 mls/hr Documented by: Insulin Human Lispro (Insulin Lispro 100 Unit/Ml Insuln.Pen) 0 unit SC Q6 [facility]; Protocol Last Admin: 05/07/20 11:11 Dose: Not Given Documented by: Magnesium Citrate (Magnesium Citrate 300 Ml) 150 ml PO X1 ONE Stop: 05/07/20 16:10 Metoprolol Tartrate (Metoprolol Tartrate 50 Mg Tablet) 50 mg GT BID [facility] Last Admin: 05/07/20 12:37 Dose: 50 mg Documented by: Metoprolol Tartrate (Metoprolol Tartrate 5 Mg/5 Ml Vial) 5 mg IV Q4H PRN PRN Reason: systolic >160 Last Admin: 05/02/20 05:51 Dose: 5 mg Documented by: Miscellaneous Information (Inhaler, Assist Devices 1 Each Spacer) 1 each INHALATION PRN PRN PRN Reason: WITH ALBUTEROL MDI Last Admin: 04/27/20 16:41 Dose: 1 each Documented by: Multi-Ingredient Cream (Petrolatum,White 3.75gm Opth.Tube) 1 applic OPHTHALMIC BID [facility] Ondansetron HCl (Ondansetron 4 Mg/2 Ml Vial) 4 mg IV Q8H PRN PRN PRN Reason: NAUSEA/VOMITING Polyethylene Glycol (Polyethylene Glycol 3350 17 Gm Packet) 17 gm GT DAILY [facility] Last Admin: 05/07/20 12:36 Dose: 17 gm Documented by: Quetiapine Fumarate (Quetiapine 25 Mg Tablet) 25 mg PO BID [facility] Last Admin: 05/07/20 12:37 Dose: 25 mg Documented by: Senna/Docusate Sodium (Senna/Docusate Sodium 1 Tablet) 2 tablet GT BID [facility] Last Admin: 05/07/20 12:37 Dose: 2 tablet Documented by: Sodium Chloride (0.9% Saline Lock 10 Ml Syringe) 10 - 40 ml IV UD PRN PRN Reason: SALINE FLUSH Last Admin: 05/07/20 13:06 Dose: 20 ml Documented by: Medical Necessity - Tobacco Use Smoking Status: Never smoker Assessment/Plan All Active Problems Acute respiratory failure with hypoxia (Acute) COVID-19 (Acute) 1. Acute kidney injury. Baseline creatinine is 1.2 to 1.3 mg/dL. ALBERTO is secondary to ischemic ATN. The patient is nonoliguric. He completed the second dialysis today without problems. I am planning on dialyzing again tomorrow. 2. Hyperkalemia. This is likely due to acute kidney injury. We dialyzed the patient on a 1 mEq potassium dialysate today. I will recheck potassium level later today. We are planning on dialyzing the patient again tomorrow as well. Medications are reviewed, and the patient is not on any medications that are predisposing hyperkalemia. 3. Acute hypoxic respiratory failure. The patient is ventilator dependent. He is being treated for Covid 19 pneumonia along with bacterial pneumonia. Ventilator management is as per pulmonary/critical care medicine service. I will try to remove more fluid tomorrow with dialysis if blood pressure is stable.
--- NOTE | 2020-05-07 17:03 | PCM.PROGNOTE ---
Patient Problems: Active and Suspected Problems Acute respiratory failure with hypoxia (Acute) COVID-19 (Acute) Subjective: Patient was seen and examined today, he remains sedated and on the ventilator, he underwent dialysis again today Objective: General: - - Patient is sedated on the ventilator HEENT: Atraumatic, PERRLA, Normocephalic Oral: Moist Mucosa Neck: Supple, No JVD, Trachea Midline, Thyroid Normal Size and Texture Lungs: Clear to auscultation, Normal air movement, No rhonchi, No wheeze, No rales Cardiovascular: Regular rate, Regular Rhythm, Normal S1, Normal S2, No murmurs, PMI Normal, No rub noted Abdomen: Bowel Sounds Present, Soft, Non Tender, Non-Distended, Obese Extremities: No clubbing, No cyanosis, No edema, Capillary Refill Less than 3 Seconds Skin: No rashes, No breakdown Musculoskeletal: No Tenderness to Palpation of Joints or Extremities Neurological: - - Patient is sedated and on the ventilator Psych/Mental Status: - - Patient is sedated and on the ventilator - Physical Exam Vitals/I&O's: Vital Signs Temp Pulse Resp BP Pulse Ox 98.2 F 84 22 H 133/56 H 95 05/07/20 16:00 05/07/20 16:00 05/07/20 16:00 05/07/20 16:00 05/07/20 16:00 Oxygen Flow Rate (L/min) 60 Oxygen Delivery Method Mechanical Ventilator Weight: 163 kg Body Mass Index (BMI) 49.0 Intake and Output for Last 24 Hours 05/05/20 05/06/20 05/07/20 23:59 23:59 23:59 Intake Total 5373.73 / 5486.43 2946.50 / 2961.50 1547.75 / 1547.75 Output Total 2650 / 2650 2820 / 2820 540 / 540 Balance 2723.73 / 2836.43 126.50 / 141.50 1007.75 / 1007.75 Laboratory Results 05/06/20 18:15: POC Glucose 140 H 05/07/20 00:32: POC Glucose 195 H 05/07/20 04:40: POC Glucose 194 H 05/07/20 05:11: WBC 17.0 H, RBC 4.31 L, Hgb 11.9 L, Hct 39.5 L, MCV 91.6, MCH 27.6, MCHC 30.1 L, RDW Std Deviation 54.3 H, RDW Coeff of Citlaly 15.9 H, Plt Count 278, MPV 11.1, Immature Gran % (Auto) 1.300 H, Neut % (Auto) 91.0 H, Lymph % (Auto) 2.8 L, [place] % (Auto) 4.6, Eos % (Auto) 0.1, Baso % (Auto) 0.2, Absolute Neuts (auto) 15.5 H, Absolute Lymphs (auto) 0.47 L, Nucleated RBC % 0, Differential Comment SCANNED 05/07/20 05:11: Sodium 141, Potassium 7.1 H*, Chloride 107, Carbon Dioxide 26.0, Anion Gap 8, BUN 152 H*, Creatinine 3.82 H, Estim Creat Clear Calc 20.31, Est GFR (MDRD) Af Amer 20 L, Est GFR (MDRD) Non-Af 17 L, BUN/Creatinine Ratio 39.8 H, Glucose 173 H, Calcium 8.4 L 05/07/20 05:11: Hep B Core Total Ab Pending 05/07/20 05:11: Hep Bs Antigen Non-Reactive, Hep Bs Antibody Non-Reactive 05/07/20 07:01: Specimen Type ART, Sample Site R Radial, pH 7.19 L*, Bicarbonate Actual 28.3 H, Total CO2 31, Base Excess 0, O2 Saturation 93 L, O2 % 45, ABG pCO2 74.8 H*, ABG pO2 84, Respiration Rate 12, O2 Delivery Device ET Tube, Vent Mode BiLevel, POC Pressure Suppt 5 05/07/20 08:00: Specimen Type ART, Sample Site R Radial, pH 7.20 L, Bicarbonate Actual 28.5 H, Total CO2 31, Base Excess 1, O2 Saturation 92 L, O2 % 50, ABG pCO2 72.7 H*, ABG pO2 79, Philip Test Positive, Respiration Rate 16, O2 Delivery Device Adult Vent, Vent Mode AC, Tidal Volume 500, POC PEEP 14 05/07/20 11:04: POC Glucose 142 H Current Medications Acetaminophen (Acetaminophen 650 Mg/20 Ml Udc) 650 mg GT Q6H PRN PRN PRN Reason: Pain Score 1-10/Temp > 100.7 F Last Admin: 05/05/20 14:06 Dose: 650 mg Documented by: Albuterol Sulfate (Albuterol Sulfate 18 Gm Inhaler (200 Puffs)) 2 puff IH Q4H PRN PRN PRN Reason: Shortness of breath, wheezing Last Admin: 04/27/20 01:30 Dose: 2 puff Documented by: Albuterol/Ipratropium (Ipratropium/Albuterol Sulfate 3 Ml Ampul.Neb) 3 ml INHALATION Q6HWA.RT [facility] Last Admin: 05/07/20 14:22 Dose: 3 ml Documented by: Aspirin (Aspirin 81 Mg Tab.Chew) 81 mg GT DAILY [facility] Last Admin: 05/07/20 12:38 Dose: 81 mg Documented by: Atorvastatin Calcium (Atorvastatin Calcium 40 Mg Tablet) 40 mg GT QHS [facility] Last Admin: 05/07/20 00:40 Dose: 40 mg Documented by: Bupropion HCl (Bupropion 100 Mg Tablet) 150 mg PO BID [facility] Last Admin: 05/07/20 12:36 Dose: 150 mg Documented by: Chlorhexidine Gluconate (Chlorhexidine 15 Ml) 15 ml PO BID [facility] Last Admin: 05/07/20 12:40 Dose: 15 ml Documented by: Dexamethasone Sodium Phosphate (Dexamethasone 4 Mg/Ml Vial) 6 mg IV QAM [facility] Stop: 05/15/20 10:01 Last Admin: 05/07/20 12:39 Dose: 6 mg Documented by: Hydralazine HCl (Hydralazine 20 Mg/Ml Vial) 10 mg IV Q4H PRN PRN PRN Reason: systolic >160 Last Admin: 05/02/20 08:12 Dose: 10 mg Documented by: Sodium Chloride () 250 mls @ 15 mls/hr IV .[id number] PRN PRN Reason: Saline Flush Last Infusion: 05/05/20 04:00 Dose: Infused Documented by: Sodium Chloride () 250 mls @ 15 mls/hr IV .[id number] PRN PRN Reason: Additional IVPB Infusion Fentanyl Citrate 1,000 mcg/ (Sodium Chloride) 100 mls @ 5 mls/hr CONT INF .Q20H [facility]; Protocol Last Titration: 05/07/20 15:00 Dose: 100 mcg/hr, 10 mls/hr Documented by: Propofol (Diprivan) 1,000 mg in 100 mls @ 9.78 mls/hr CONT INF .[id number] [facility]; Protocol Last Titration: 05/07/20 15:00 Dose: 5 mcg/kg/min, 4.9 mls/hr Documented by: Pantoprazole Sodium 40 mg/ (Sodium Chloride) 110 mls @ 330 mls/hr IV Q12 [facility] Last Infusion: 05/07/20 10:24 Dose: Infused Documented by: Enteral Nutritional Formula (Vital High Protein) 1,000 mls @ 75 mls/hr GT .[id number] [facility] Last Admin: 05/07/20 12:40 Dose: 75 mls/hr Documented by: Insulin Human Lispro (Insulin Lispro 100 Unit/Ml Insuln.Pen) 0 unit SC Q6 [facility]; Protocol Last Admin: 05/07/20 11:11 Dose: Not Given Documented by: Magnesium Citrate (Magnesium Citrate 300 Ml) 150 ml PO X1 ONE Stop: 05/07/20 20:01 Metoprolol Tartrate (Metoprolol Tartrate 50 Mg Tablet) 50 mg GT BID [facility] Last Admin: 05/07/20 12:37 Dose: 50 mg Documented by: Metoprolol Tartrate (Metoprolol Tartrate 5 Mg/5 Ml Vial) 5 mg IV Q4H PRN PRN Reason: systolic >160 Last Admin: 05/02/20 05:51 Dose: 5 mg Documented by: Miscellaneous Information (Inhaler, Assist Devices 1 Each Spacer) 1 each INHALATION PRN PRN PRN Reason: WITH ALBUTEROL MDI Last Admin: 04/27/20 16:41 Dose: 1 each Documented by: Multi-Ingredient Cream (Petrolatum,White 3.75gm Opth.Tube) 1 applic OPHTHALMIC BID [facility] Ondansetron HCl (Ondansetron 4 Mg/2 Ml Vial) 4 mg IV Q8H PRN PRN PRN Reason: NAUSEA/VOMITING Polyethylene Glycol (Polyethylene Glycol 3350 17 Gm Packet) 17 gm GT DAILY [facility] Last Admin: 05/07/20 12:36 Dose: 17 gm Documented by: Quetiapine Fumarate (Quetiapine 25 Mg Tablet) 25 mg PO BID [facility] Last Admin: 05/07/20 12:37 Dose: 25 mg Documented by: Senna/Docusate Sodium (Senna/Docusate Sodium 1 Tablet) 2 tablet GT BID [facility] Last Admin: 05/07/20 12:37 Dose: 2 tablet Documented by: Sodium Chloride (0.9% Saline Lock 10 Ml Syringe) 10 - 40 ml IV UD PRN PRN Reason: SALINE FLUSH Last Admin: 05/07/20 13:06 Dose: 20 ml Documented by: Medical Necessity - Tobacco Use Smoking Status: Never smoker Assessment/Plan All Active Problems Acute respiratory failure with hypoxia (Acute) COVID-19 (Acute) #1 COVID-19 pneumonia-patient completed his treatment for COVID-19 pneumonia, he is off antibiotics at this time. #2 acute hypoxic respiratory failure secondary to #1-prognosis is guarded at this time #3 coronary artery disease #4 essential hypertension #5 paroxysmal atrial fibrillation-patient is on Eliquis chronically #6 morbid obesity #7 Acute renal failure-nephrology is seeing patient, patient is undergoing dialysis #8 hyperkalemia-nephrology is addressing this #9 sputum culture positive for methicillin sensitive staph aureus-infectious diseases is participating in his care, it appears that the patient is off antibiotics at this time Inpatient E&M: 52742 Subs Hosp L2
[2020-05-07 17:33] LABS: Potassium 5.6 mmol/L (3.5-5.1)
[2020-05-07 17:40] LABS: Bedside Glucose 171 mg/dL (70-110)
[2020-05-07] MEDS: hydrALAZINE 20 MG/ML Vial 10 MG IV (18:27)
[2020-05-07] MEDS: Petrolatum,White 3.75GM OPTH.TUBE 1 APPLIC OPHTHALMIC (20:48)
[2020-05-07] MEDS: Propofol 10MG/Ml 1,000 MG/100 ML Bottle 9.8 MG CONT INF (20:49)
[2020-05-08] VITALS (41 sets, daily range): BP systolic 76–195; BP diastolic 44–86; PULSE 84–122; RESP 18–37; TEMP 36.7–38.1; O2SAT 92–100
[2020-05-08 00:45] LABS: Bedside Glucose 135 mg/dL (70-110)
[2020-05-08] MEDS: hydrALAZINE 20 MG/ML Vial 10 MG IV (03:11)
[2020-05-08] MEDS: Vital High Protein 1,000 ML 75 ML GT ×2 (03:11→14:19)
[2020-05-08] MEDS: 0.9% Saline Lock 10 ML Syringe IV ×3 (03:11→08:24)
[2020-05-08 03:29] LABS: Absolute Lymphocyte Count 0.81 X10^3/uL (0.83-4.51); Absolute Neutrophil Count 15.2 X10^3/uL (2.0-7.7); Basophil# 0.03 X10^3/uL; Basophil% 0.2 % (0-1); Eosinophil# 0.11 X10^3/uL; Eosinophils% 0.6 % (0-5); Hematocrit 35.8 % (40-54); Hemoglobin 11.2 g/dL (13.0-16.5); Lymphocyte # 0.81 X10^3/ul (4.0); Lymphocyte % 4.5 % (19-41); Mean Corp Hgb Conc 31.3 g/dL (32-36); Mean Corpuscular Hgb 27.2 pg (27.0-32.0); Mean Corpuscular Volume 86.9 fL (80-94); Mean Platelet Vol. 11.4 fl (6.2-12.0); Monocyte# 1.33 X10^3/uL; Monocyte% 7.5 % (0-10); NRBC Flagged by Analyzer 0.1 % (0-5); Neutrophil # 15.24 X10^3/uL (2.7-7.7); Neutrophil % 85.5 % (47-70); Platelet Count 241 K/mm3 (150-450); RBC Distribution Width CV 15.3 % (11.6-14.6); RBC Distribution Width SD 48.6 fl (35.1-43.9); Red Blood Count 4.12 M/mm3 (4.6-6.2); White Blood Count 17.8 K/mm3 (4.4-11.0)
[2020-05-08 03:47] LABS: Anion Gap 10 (5-15); BUN 135 mg/dL (7-18); BUN/Creat Ratio 37.4 RATIO (10-20); Calcium,Total 8.2 mg/dL (8.5-10.1); Chloride 104 mmol/L (98-107); Creatinine, Serum 3.61 mg/dL (0.70-1.30); EST Glomerular Filtration Rate 18 mL/min (>60); Est Glom Filt Rate - Afr Amer 22 mL/min (>60); Glucose 124 mg/dL (74-106); Potassium 5.7 mmol/L (3.5-5.1); Sodium Level 140 mmol/L (136-145)
[2020-05-08] MEDS: Metoprolol Tartrate 5 MG/5 ML Vial IV (05:11)
[2020-05-08] MEDS: Propofol 10MG/Ml 1,000 MG/100 ML Bottle 9.8 MG CONT INF (05:32)
[2020-05-08] MEDS: TITRATION PARAMETER CHANGE 1 EACH IV (05:46)
[2020-05-08] MEDS: Ipratropium/Albuterol Sulfate 3 ML AMPUL.NEB INHALATION ×3 (07:13→19:45)
--- NOTE | 2020-05-08 07:43 | PN_ITS ---
Subjective: Patient did well overnight. Patient did have some episodes of hypertension and tachypnea. Patient was able to tolerate hemodialysis yesterday with minimal fluid removal. 2 bowel movements were noted overnight and patient is now tolerating tube feeds. Patient was able to be weaned to 10 of PEEP. Patient does open his eyes to voice, but not following commands. General: - - RASS -1. Morbidly obese. HEENT: Atraumatic, PERRLA, EOMI, Normocephalic, - - Slight scleral injection and edema noted Oral: Moist Mucosa, No Gingival or Mucosal Lesions/ Ulcerations, - - Crowded posterior pharynx Neck: Supple, No Nodes, Trachea Midline, - - Lines are clean, dry and intact Lungs: No rhonchi, No wheeze, No rales, Diminished, - - Symmetric expansion Cardiovascular: Normal S1, Normal S2, No murmurs, No rub noted, No Gallop, Tachycardic Abdomen: Bowel Sounds Present, Soft, Non Tender, Non-Distended, Obese Extremities: No clubbing, No cyanosis, Edema Skin: - - Mottling of lower extremities improved. Patient with a papular rash across the chest. No fluctuance or crepitus appreciated Musculoskeletal: No Tenderness to Palpation of Joints or Extremities Lymphatic: No Cervical, Supraclavicular, or Inguinal Adenopathy Neurological: Neuro grossly intact - Positive gag and cough reflexes. Localizes to stimulus. Psych/Mental Status: Flat Affect Vital Signs Temp Pulse Resp BP Pulse Ox 37.1 C 102 H 30 H 153/66 H 96 05/08/20 05:00 05/08/20 07:14 05/08/20 07:14 05/08/20 07:00 05/08/20 07:14 Oxygen Flow Rate (L/min) 60 Oxygen Delivery Method Mechanical Ventilator Weight: 164.8 kg Body Mass Index (BMI) 49.0 Intake and Output for Last 24 Hours 05/06/20 05/07/20 05/08/20 23:59 23:59 23:59 Intake Total 2946.50 / 2961.50 3007.78 / 3007.78 702.31 / 702.31 Output Total 2820 / 2820 640 / 640 40 / 40 Balance 126.50 / 141.50 2367.78 / 2367.78 662.31 / 662.31 Labs (Last 48 Hours) 05/06/20 05/06/20 05/06/20 04:50 13:15 18:15 WBC RBC Hgb Hct MCV MCH MCHC RDW Std Deviation RDW Coeff of Citlaly Plt Count MPV Immature Gran % (Auto) Neut % (Auto) Lymph % (Auto) [place] % (Auto) Eos % (Auto) Baso % (Auto) Absolute Neuts (auto) Absolute Lymphs (auto) Nucleated RBC % Differential Comment Specimen Type Sample Site pH Bicarbonate Actual Total CO2 Base Excess O2 Saturation O2 % ABG pCO2 ABG pO2 Philip Test Respiration Rate O2 Delivery Device Vent Mode Tidal Volume POC PEEP POC Pressure Suppt Sodium Potassium Chloride Carbon Dioxide Anion Gap BUN Creatinine Estim Creat Clear Calc Est GFR (MDRD) Af Amer Est GFR (MDRD) Non-Af BUN/Creatinine Ratio Glucose Calcium Total Creatine Kinase 109 Triglycerides 163 Hep Bs Antigen Hep Bs Antibody Hep B Core Total Ab POC Glucose 133 H 140 H 05/07/20 05/07/20 05/07/20 00:32 04:40 05:11 WBC 17.0 H RBC 4.31 L Hgb 11.9 L Hct 39.5 L MCV 91.6 MCH 27.6 MCHC 30.1 L RDW Std Deviation 54.3 H RDW Coeff of Citlaly 15.9 H Plt Count 278 MPV 11.1 Immature Gran % (Auto) 1.300 H Neut % (Auto) 91.0 H Lymph % (Auto) 2.8 L [place] % (Auto) 4.6 Eos % (Auto) 0.1 Baso % (Auto) 0.2 Absolute Neuts (auto) 15.5 H Absolute Lymphs (auto) 0.47 L Nucleated RBC % 0 Differential Comment SCANNED Specimen Type Sample Site pH Bicarbonate Actual Total CO2 Base Excess O2 Saturation O2 % ABG pCO2 ABG pO2 Philip Test Respiration Rate O2 Delivery Device Vent Mode Tidal Volume POC PEEP POC Pressure Suppt Sodium Potassium Chloride Carbon Dioxide Anion Gap BUN Creatinine Estim Creat Clear Calc Est GFR (MDRD) Af Amer Est GFR (MDRD) Non-Af BUN/Creatinine Ratio Glucose Calcium Total Creatine Kinase Triglycerides Hep Bs Antigen Hep Bs Antibody Hep B Core Total Ab POC Glucose 195 H 194 H 05/07/20 05/07/20 05/07/20 05:11 05:11 05:11 WBC RBC Hgb Hct MCV MCH MCHC RDW Std Deviation RDW Coeff of Citlaly Plt Count MPV Immature Gran % (Auto) Neut % (Auto) Lymph % (Auto) [place] % (Auto) Eos % (Auto) Baso % (Auto) Absolute Neuts (auto) Absolute Lymphs (auto) Nucleated RBC % Differential Comment Specimen Type Sample Site pH Bicarbonate Actual Total CO2 Base Excess O2 Saturation O2 % ABG pCO2 ABG pO2 Philip Test Respiration Rate O2 Delivery Device Vent Mode Tidal Volume POC PEEP POC Pressure Suppt Sodium 141 Potassium 7.1 H* Chloride 107 Carbon Dioxide 26.0 Anion Gap 8 BUN 152 H* Creatinine 3.82 H Estim Creat Clear Calc 20.31 Est GFR (MDRD) Af Amer 20 L Est GFR (MDRD) Non-Af 17 L BUN/Creatinine Ratio 39.8 H Glucose 173 H Calcium 8.4 L Total Creatine Kinase Triglycerides Hep Bs Antigen Non-Reactive Hep Bs Antibody Non-Reactive Hep B Core Total Ab Pending POC Glucose 05/07/20 05/07/20 05/07/20 07:01 08:00 11:04 WBC RBC Hgb Hct MCV MCH MCHC RDW Std Deviation RDW Coeff of Citlaly Plt Count MPV Immature Gran % (Auto) Neut % (Auto) Lymph % (Auto) [place] % (Auto) Eos % (Auto) Baso % (Auto) Absolute Neuts (auto) Absolute Lymphs (auto) Nucleated RBC % Differential Comment Specimen Type ART ART Sample Site R Radial R Radial pH 7.19 L* 7.20 L Bicarbonate Actual 28.3 H 28.5 H Total CO2 31 31 Base Excess 0 1 O2 Saturation 93 L 92 L O2 % 45 50 ABG pCO2 74.8 H* 72.7 H* ABG pO2 84 79 Philip Test Positive Respiration Rate 12 16 O2 Delivery Device ET Tube Adult Vent Vent Mode BiLevel AC Tidal Volume 500 POC PEEP 14 POC Pressure Suppt 5 Sodium Potassium Chloride Carbon Dioxide Anion Gap BUN Creatinine Estim Creat Clear Calc Est GFR (MDRD) Af Amer Est GFR (MDRD) Non-Af BUN/Creatinine Ratio Glucose Calcium Total Creatine Kinase Triglycerides Hep Bs Antigen Hep Bs Antibody Hep B Core Total Ab POC Glucose 142 H 05/07/20 05/07/20 05/07/20 17:06 17:10 23:17 WBC RBC Hgb Hct MCV MCH MCHC RDW Std Deviation RDW Coeff of Citlaly Plt Count MPV Immature Gran % (Auto) Neut % (Auto) Lymph % (Auto) [place] % (Auto) Eos % (Auto) Baso % (Auto) Absolute Neuts (auto) Absolute Lymphs (auto) Nucleated RBC % Differential Comment Specimen Type Sample Site pH Bicarbonate Actual Total CO2 Base Excess O2 Saturation O2 % ABG pCO2 ABG pO2 Philip Test Respiration Rate O2 Delivery Device Vent Mode Tidal Volume POC PEEP POC Pressure Suppt Sodium Potassium 5.6 H Chloride Carbon Dioxide Anion Gap BUN Creatinine Estim Creat Clear Calc Est GFR (MDRD) Af Amer Est GFR (MDRD) Non-Af BUN/Creatinine Ratio Glucose Calcium Total Creatine Kinase Triglycerides Hep Bs Antigen Hep Bs Antibody Hep B Core Total Ab POC Glucose 171 H 135 H 05/08/20 05/08/20 03:20 03:20 WBC 17.8 H RBC 4.12 L Hgb 11.2 L Hct 35.8 L MCV 86.9 D MCH 27.2 MCHC 31.3 L RDW Std Deviation 48.6 H RDW Coeff of Citlaly 15.3 H Plt Count 241 MPV 11.4 Immature Gran % (Auto) 1.700 H Neut % (Auto) 85.5 H Lymph % (Auto) 4.5 L [place] % (Auto) 7.5 Eos % (Auto) 0.6 Baso % (Auto) 0.2 Absolute Neuts (auto) 15.2 H Absolute Lymphs (auto) 0.81 L Nucleated RBC % 0.1 Differential Comment Specimen Type Sample Site pH Bicarbonate Actual Total CO2 Base Excess O2 Saturation O2 % ABG pCO2 ABG pO2 Philip Test Respiration Rate O2 Delivery Device Vent Mode Tidal Volume POC PEEP POC Pressure Suppt Sodium 140 Potassium 5.7 H Chloride 104 Carbon Dioxide 26.0 Anion Gap 10 BUN 135 H* Creatinine 3.61 H Estim Creat Clear Calc 21.50 Est GFR (MDRD) Af Amer 22 L Est GFR (MDRD) Non-Af 18 L BUN/Creatinine Ratio 37.4 H Glucose 124 H Calcium 8.2 L Total Creatine Kinase Triglycerides Hep Bs Antigen Hep Bs Antibody Hep B Core Total Ab POC Glucose Medical Necessity - Tobacco Use Smoking Status: Never smoker Assessment/Plan All Active Problems Acute respiratory failure with hypoxia (Acute) COVID-19 (Acute) RECOMMENDATIONS: 1. Wean fentanyl and propofol as tolerated, along with scheduled Seroquel. 2. Dialysis per nephrology 3. Continue current vent settings. Possibly wean respiratory rate through the day. Wean FiO2 and PEEP as tolerated. 4. Continue bowel regimen and tube feeds as tolerated 5. Monitor off antimicrobials per ID recommendations. 6. Continue to hold Eliquis 7. Continue Decadron as ordered to complete treatment course. 8. Continue appropriate GI prophylaxis. IMPRESSIONS: 1. Acute hypoxemic respiratory failure secondary to ARDS due to COVID- 19/MSSA pneumonia The patient was initially diagnosed 1 week prior to hospital admission. Although attempts were made to utilize high flow oxygen and noninvasive positive pressure ventilatory support, the patient continued to decompensate from a respiratory perspective, requiring transfer to ICU and subsequent intubation on April 29. The patient has gone on to develop fulminant ARDS with high ventilator requirements. The patient has completed a treatment course of remdesivir and will remain on Decadron. The patient will remain on appropriate antimicrobials well per ID recommendations. Patient appears to be tolerating transition to assist control. If patient starts breathing with the vent, may attempt to decrease respiratory rate. 2. ALBERTO on CKD/hyperkalemia Possibly prerenal in etiology. Patient continues to have decent urine output, but uremia and creatinine are significantly elevated. Patient also has hyperkalemia. Patient receiving hemodialysis now with a low potassium bath. EKG did not show any significant changes. Volume removal is ideal, but not necessarily needed as oxygenation appears to be relatively stable. Nephrology following 3. Obesity/hypertension/hyperlipidemia/paroxysmal atrial fibrillation/coronary artery disease/GERD Complicates care, management, recovery and prognosis. Continue home medications as indicated. Discussed with family members about the severity of patient's prognosis. They understand and want to proceed in an aggressive fashion. 4. Hypertensive urgency Clinical suspicion for elevated blood pressure and respiratory rate secondary to agitation. Patient had significant uremia previously that likely led to an element of neurologic depression. This is improving with dialysis. May need to titrate up on propofol TIME: 45 minutes of critical care time, independent of procedures, was spent addressing the patient's acute hypoxemic respiratory failure secondary to ARDS due to COVID-19 pneumonia, paroxysmal atrial fibrillation, coronary artery disease, ALBERTO, review of all data and collaboration with care team. (5:30 AM to 6:30 AM) [id number]: [id number] Critical care first hour
[2020-05-08] MEDS: Metoprolol Tartrate 50 MG Tablet GT ×2 (08:13→20:58)
[2020-05-08] MEDS: QUEtiapine 25 MG Tablet PO ×2 (08:13→20:59)
[2020-05-08] MEDS: buPROPion 100 MG Tablet 150 MG PO ×2 (08:13→20:59)
[2020-05-08] MEDS: Senna/Docusate Sodium 1 Tablet 2 TABLET GT ×2 (08:13→20:59)
[2020-05-08] MEDS: Polyethylene Glycol 3350 17 GM PACKET GT (08:13)
[2020-05-08] MEDS: Petrolatum,White 3.75GM OPTH.TUBE 1 APPLIC OPHTHALMIC ×2 (08:14→20:58)
[2020-05-08] MEDS: dexAMETHasone 4 MG/ML Vial 6 MG IV (08:14)
[2020-05-08] MEDS: Aspirin 81 MG TAB.CHEW GT (08:14)
[2020-05-08] MEDS: Chlorhexidine 15 ML PO ×2 (08:15→20:57)
--- NOTE | 2020-05-08 09:58 | PCM.PN.ID ---
Patient Problems: Active and Suspected Problems Acute respiratory failure with hypoxia (Acute) COVID-19 (Acute) Subjective: No fever, O2 improved, HD this AM - Physical Exam Vitals/I&O's: Vital Signs Temp Pulse Resp BP Pulse Ox 98.4 F 88 21 H 113/52 L 93 05/08/20 08:00 05/08/20 09:00 05/08/20 09:00 05/08/20 09:00 05/08/20 09:00 Oxygen Flow Rate (L/min) 60 Oxygen Delivery Method Mechanical Ventilator Weight: 164.8 kg Body Mass Index (BMI) 49.0 Intake and Output for Last 24 Hours 05/06/20 05/07/20 05/08/20 23:59 23:59 23:59 Intake Total 2946.50 / 2961.50 3007.78 / 3007.78 1006.31 / 1006.31 Output Total 2820 / 2820 640 / 640 70 / 70 Balance 126.50 / 141.50 2367.78 / 2367.78 936.31 / 936.31 General: No apparent distress Lungs: Diminished Cardiovascular: Regular rate, Regular Rhythm Abdomen: Soft, Non Tender, Non-Distended Skin: No rashes Laboratory Results 05/07/20 05:11: Hep Bs Antigen Non-Reactive, Hep Bs Antibody Non-Reactive 05/07/20 11:04: POC Glucose 142 H 05/07/20 17:06: POC Glucose 171 H 05/07/20 17:10: Potassium 5.6 H 05/07/20 23:17: POC Glucose 135 H 05/08/20 03:20: WBC 17.8 H, RBC 4.12 L, Hgb 11.2 L, Hct 35.8 L, MCV 86.9 D, MCH 27.2, MCHC 31.3 L, RDW Std Deviation 48.6 H, RDW Coeff of Citlaly 15.3 H, Plt Count 241, MPV 11.4, Immature Gran % (Auto) 1.700 H, Neut % (Auto) 85.5 H, Lymph % (Auto) 4.5 L, [place] % (Auto) 7.5, Eos % (Auto) 0.6, Baso % (Auto) 0.2, Absolute Neuts (auto) 15.2 H, Absolute Lymphs (auto) 0.81 L, Nucleated RBC % 0.1 05/08/20 03:20: Sodium 140, Potassium 5.7 H, Chloride 104, Carbon Dioxide 26.0, Anion Gap 10, BUN 135 H*, Creatinine 3.61 H, Estim Creat Clear Calc 21.50, Est GFR (MDRD) Af Amer 22 L, Est GFR (MDRD) Non-Af 18 L, BUN/Creatinine Ratio 37.4 H, Glucose 124 H, Calcium 8.2 L Current Medications Acetaminophen (Acetaminophen 650 Mg/20 Ml Udc) 650 mg GT Q6H PRN PRN PRN Reason: Pain Score 1-10/Temp > 100.7 F Last Admin: 05/05/20 14:06 Dose: 650 mg Documented by: Albuterol Sulfate (Albuterol Sulfate 18 Gm Inhaler (200 Puffs)) 2 puff IH Q4H PRN PRN PRN Reason: Shortness of breath, wheezing Last Admin: 04/27/20 01:30 Dose: 2 puff Documented by: Albuterol/Ipratropium (Ipratropium/Albuterol Sulfate 3 Ml Ampul.Neb) 3 ml INHALATION Q6HWA.RT [facility] Last Admin: 05/08/20 07:13 Dose: 3 ml Documented by: Aspirin (Aspirin 81 Mg Tab.Chew) 81 mg GT DAILY [facility] Last Admin: 05/08/20 08:14 Dose: 81 mg Documented by: Atorvastatin Calcium (Atorvastatin Calcium 40 Mg Tablet) 40 mg GT QHS [facility] Last Admin: 05/07/20 20:48 Dose: 40 mg Documented by: Bupropion HCl (Bupropion 100 Mg Tablet) 150 mg PO BID [facility] Last Admin: 05/08/20 08:13 Dose: 150 mg Documented by: Chlorhexidine Gluconate (Chlorhexidine 15 Ml) 15 ml PO BID [facility] Last Admin: 05/08/20 08:15 Dose: 15 ml Documented by: Dexamethasone Sodium Phosphate (Dexamethasone 4 Mg/Ml Vial) 6 mg IV QAM [facility] Stop: 05/15/20 10:01 Last Admin: 05/08/20 08:14 Dose: 6 mg Documented by: Heparin Sodium (Porcine) (Heparin 10,000 Units/10 Ml Vial) 0 units IV X1 [facility] Stop: 05/08/20 10:01 Hydralazine HCl (Hydralazine 20 Mg/Ml Vial) 10 mg IV Q4H PRN PRN PRN Reason: systolic >160 Last Admin: 05/08/20 03:11 Dose: 10 mg Documented by: Sodium Chloride () 250 mls @ 15 mls/hr IV .[id number] PRN PRN Reason: Saline Flush Last Infusion: 05/05/20 04:00 Dose: Infused Documented by: Sodium Chloride () 250 mls @ 15 mls/hr IV .[id number] PRN PRN Reason: Additional IVPB Infusion Fentanyl Citrate 1,000 mcg/ (Sodium Chloride) 100 mls @ 5 mls/hr CONT INF .Q20H [facility]; Protocol Last Admin: 05/08/20 07:04 Dose: 125 mcg/hr, 12.5 mls/hr Documented by: Propofol (Diprivan) 1,000 mg in 100 mls @ 9.888 mls/hr CONT INF .Q10H7M [facility]; Protocol Last Titration: 05/08/20 06:45 Dose: 15 mcg/kg/min, 14.8 mls/hr Documented by: Pantoprazole Sodium 40 mg/ (Sodium Chloride) 110 mls @ 330 mls/hr IV Q12 [facility] Last Infusion: 05/07/20 21:43 Dose: Infused Documented by: Enteral Nutritional Formula (Vital High Protein) 1,000 mls @ 75 mls/hr GT .[id number] [facility] Last Admin: 05/08/20 03:11 Dose: 75 mls/hr Documented by: Insulin Human Lispro (Insulin Lispro 100 Unit/Ml Insuln.Pen) 0 unit SC Q6 [facility]; Protocol Last Admin: 05/08/20 05:46 Dose: Not Given Documented by: Metoprolol Tartrate (Metoprolol Tartrate 50 Mg Tablet) 50 mg GT BID [facility] Last Admin: 05/08/20 08:13 Dose: 50 mg Documented by: Metoprolol Tartrate (Metoprolol Tartrate 5 Mg/5 Ml Vial) 5 mg IV Q4H PRN PRN Reason: systolic >160 Last Admin: 05/08/20 05:11 Dose: 5 mg Documented by: Miscellaneous Information (Inhaler, Assist Devices 1 Each Spacer) 1 each INHALATION PRN PRN PRN Reason: WITH ALBUTEROL MDI Last Admin: 04/27/20 16:41 Dose: 1 each Documented by: Multi-Ingredient Cream (Petrolatum,White 3.75gm Opth.Tube) 1 applic OPHTHALMIC BID [facility] Last Admin: 05/08/20 08:14 Dose: 1 applicatio Documented by: Ondansetron HCl (Ondansetron 4 Mg/2 Ml Vial) 4 mg IV Q8H PRN PRN PRN Reason: NAUSEA/VOMITING Polyethylene Glycol (Polyethylene Glycol 3350 17 Gm Packet) 17 gm GT DAILY [facility] Last Admin: 05/08/20 08:13 Dose: 17 gm Documented by: Quetiapine Fumarate (Quetiapine 25 Mg Tablet) 25 mg PO BID [facility] Last Admin: 05/08/20 08:13 Dose: 25 mg Documented by: Senna/Docusate Sodium (Senna/Docusate Sodium 1 Tablet) 2 tablet GT BID [facility] Last Admin: 05/08/20 08:13 Dose: 2 tablet Documented by: Sodium Chloride (0.9% Saline Lock 10 Ml Syringe) 10 - 40 ml IV UD PRN PRN Reason: SALINE FLUSH Last Admin: 05/08/20 08:24 Dose: 10 ml Documented by: Medical Necessity - Tobacco Use Smoking Status: Never smoker Route of nutrition/ use of supplements: [] Nutritional Intake: [] IV Site: [] Lares Catheter: [] - Assessment/Plan Antibiotics: [] Assessment/Plan: [] Active and Suspected Problems Acute respiratory failure with hypoxia (Acute) COVID-19 (Acute) covid with hypoxia - completed remdesivir. Off eliquis, not currently any anticoagulation ordered. Sx started around 04/14. Intubated 04/29, sputum cx with MSSA, completed course with cefepime. On extended course of dex. O2 improved, on vent, HD. Will follow
[2020-05-08 10:50] LABS: Bedside Glucose 111 mg/dL (70-110)
--- NOTE | 2020-05-08 11:56 | CASEMGMT ---
RN CM Note: participated in ICU interdisciplinary rounds. was able to participate via phone. Pt remains on ventilator, 50% O2. Pt received dialysis 05/06 and 05/07/20 and plan is for dialysis today. Remains on Fentanyl and Propofol gtt, IV Decadron, Tube Feeds @ 75 ml/hr. Passed mobility screening. DC Planning deferred. anticipate patient will need SNF/LTACH prior to discharge. Nitin CALLEJAS RN ACM
[2020-05-08] MEDS: Propofol 10MG/Ml 1,000 MG/100 ML Bottle 14.8 MG CONT INF ×2 (12:00→15:00)
[2020-05-08 12:05] LABS: Bedside Glucose 146 mg/dL (70-110)
--- NOTE | 2020-05-08 13:59 | DIALYSIS ---
HD x 4 hours complete. Tolerated tx fairly well. Fluid positive 100ml post tx d/t issue with propofol during tx. Bp started climbing and then dropped to 60's when icu staff adjusted propofol. Dr. Donahue was notified. Used right IJ catheter. Catheter is positional. Lumens closed with heparin per fill volume. Caps placed. Dressing is dry and intact. See tx sheet for more details. Report was given to Maria Luisa Landry.
[2020-05-08] MEDS: Heparin 10,000 UNITS/10 ML Vial IV (14:18)
--- NOTE | 2020-05-08 14:50 | PCM.PN.REN ---
Patient Problems: Active and Suspected Problems Acute respiratory failure with hypoxia (Acute) COVID-19 (Acute) Subjective: intubated sedated - Physical Exam Vitals/I&O's: Vital Signs Temp Pulse Resp BP Pulse Ox 98.6 F 90 26 H 135/64 H 98 05/08/20 12:00 05/08/20 12:00 05/08/20 12:00 05/08/20 12:00 05/08/20 12:00 Oxygen Flow Rate (L/min) 60 Oxygen Delivery Method Mechanical Ventilator Weight: 164.8 kg Body Mass Index (BMI) 49.0 Intake and Output for Last 24 Hours 05/06/20 05/07/20 05/08/20 23:59 23:59 23:59 Intake Total 2946.50 / 2961.50 3007.78 / 3007.78 1480.68 / 1480.68 Output Total 2820 / 2820 640 / 640 70 / 70 Balance 126.50 / 141.50 2367.78 / 2367.78 1410.68 / 1410.68 Comment: exam minimized due to covid Laboratory Results 05/07/20 17:06: POC Glucose 171 H 05/07/20 17:10: Potassium 5.6 H 05/07/20 23:17: POC Glucose 135 H 05/08/20 03:20: WBC 17.8 H, RBC 4.12 L, Hgb 11.2 L, Hct 35.8 L, MCV 86.9 D, MCH 27.2, MCHC 31.3 L, RDW Std Deviation 48.6 H, RDW Coeff of Citlaly 15.3 H, Plt Count 241, MPV 11.4, Immature Gran % (Auto) 1.700 H, Neut % (Auto) 85.5 H, Lymph % (Auto) 4.5 L, [place] % (Auto) 7.5, Eos % (Auto) 0.6, Baso % (Auto) 0.2, Absolute Neuts (auto) 15.2 H, Absolute Lymphs (auto) 0.81 L, Nucleated RBC % 0.1 05/08/20 03:20: Sodium 140, Potassium 5.7 H, Chloride 104, Carbon Dioxide 26.0, Anion Gap 10, BUN 135 H*, Creatinine 3.61 H, Estim Creat Clear Calc 21.50, Est GFR (MDRD) Af Amer 22 L, Est GFR (MDRD) Non-Af 18 L, BUN/Creatinine Ratio 37.4 H, Glucose 124 H, Calcium 8.2 L 05/08/20 05:06: POC Glucose 111 H 05/08/20 11:57: POC Glucose 146 H Current Medications Acetaminophen (Acetaminophen 650 Mg/20 Ml Udc) 650 mg GT Q6H PRN PRN PRN Reason: Pain Score 1-10/Temp > 100.7 F Last Admin: 05/05/20 14:06 Dose: 650 mg Documented by: Albuterol Sulfate (Albuterol Sulfate 18 Gm Inhaler (200 Puffs)) 2 puff IH Q4H PRN PRN PRN Reason: Shortness of breath, wheezing Last Admin: 04/27/20 01:30 Dose: 2 puff Documented by: Albuterol/Ipratropium (Ipratropium/Albuterol Sulfate 3 Ml Ampul.Neb) 3 ml INHALATION Q6HWA.RT [facility] Last Admin: 05/08/20 14:18 Dose: 3 ml Documented by: Aspirin (Aspirin 81 Mg Tab.Chew) 81 mg GT DAILY [facility] Last Admin: 05/08/20 08:14 Dose: 81 mg Documented by: Atorvastatin Calcium (Atorvastatin Calcium 40 Mg Tablet) 40 mg GT QHS [facility] Last Admin: 05/07/20 20:48 Dose: 40 mg Documented by: Bupropion HCl (Bupropion 100 Mg Tablet) 150 mg PO BID [facility] Last Admin: 05/08/20 08:13 Dose: 150 mg Documented by: Chlorhexidine Gluconate (Chlorhexidine 15 Ml) 15 ml PO BID [facility] Last Admin: 05/08/20 08:15 Dose: 15 ml Documented by: Dexamethasone Sodium Phosphate (Dexamethasone 4 Mg/Ml Vial) 6 mg IV QAM [facility] Stop: 05/15/20 10:01 Last Admin: 05/08/20 08:14 Dose: 6 mg Documented by: Hydralazine HCl (Hydralazine 20 Mg/Ml Vial) 10 mg IV Q4H PRN PRN PRN Reason: systolic >160 Last Admin: 05/08/20 03:11 Dose: 10 mg Documented by: Sodium Chloride () 250 mls @ 15 mls/hr IV .[id number] PRN PRN Reason: Saline Flush Last Infusion: 05/05/20 04:00 Dose: Infused Documented by: Sodium Chloride () 250 mls @ 15 mls/hr IV .[id number] PRN PRN Reason: Additional IVPB Infusion Fentanyl Citrate 1,000 mcg/ (Sodium Chloride) 100 mls @ 5 mls/hr CONT INF .Q20H [facility]; Protocol Last Titration: 05/08/20 12:00 Dose: 125 mcg/hr, 12.5 mls/hr Documented by: Propofol (Diprivan) 1,000 mg in 100 mls @ 9.888 mls/hr CONT INF .Q10H7M [facility]; Protocol Last Admin: 05/08/20 12:00 Dose: 15 mcg/kg/min, 14.8 mls/hr Documented by: Pantoprazole Sodium 40 mg/ (Sodium Chloride) 110 mls @ 330 mls/hr IV Q12 [facility] Last Infusion: 05/08/20 10:20 Dose: Infused Documented by: Enteral Nutritional Formula (Vital High Protein) 1,000 mls @ 75 mls/hr GT .[id number] [facility] Last Admin: 05/08/20 14:19 Dose: 75 mls/hr Documented by: Insulin Human Lispro (Insulin Lispro 100 Unit/Ml Insuln.Pen) 0 unit SC Q6 [facility]; Protocol Last Admin: 05/08/20 12:08 Dose: Not Given Documented by: Metoprolol Tartrate (Metoprolol Tartrate 50 Mg Tablet) 50 mg GT BID [facility] Last Admin: 05/08/20 08:13 Dose: 50 mg Documented by: Metoprolol Tartrate (Metoprolol Tartrate 5 Mg/5 Ml Vial) 5 mg IV Q4H PRN PRN Reason: systolic >160 Last Admin: 05/08/20 05:11 Dose: 5 mg Documented by: Miscellaneous Information (Inhaler, Assist Devices 1 Each Spacer) 1 each INHALATION PRN PRN PRN Reason: WITH ALBUTEROL MDI Last Admin: 04/27/20 16:41 Dose: 1 each Documented by: Multi-Ingredient Cream (Petrolatum,White 3.75gm Opth.Tube) 1 applic OPHTHALMIC BID [facility] Last Admin: 05/08/20 08:14 Dose: 1 applicatio Documented by: Ondansetron HCl (Ondansetron 4 Mg/2 Ml Vial) 4 mg IV Q8H PRN PRN PRN Reason: NAUSEA/VOMITING Polyethylene Glycol (Polyethylene Glycol 3350 17 Gm Packet) 17 gm GT DAILY [facility] Last Admin: 05/08/20 08:13 Dose: 17 gm Documented by: Quetiapine Fumarate (Quetiapine 25 Mg Tablet) 25 mg PO BID [facility] Last Admin: 05/08/20 08:13 Dose: 25 mg Documented by: Senna/Docusate Sodium (Senna/Docusate Sodium 1 Tablet) 2 tablet GT BID [facility] Last Admin: 05/08/20 08:13 Dose: 2 tablet Documented by: Sodium Chloride (0.9% Saline Lock 10 Ml Syringe) 10 - 40 ml IV UD PRN PRN Reason: SALINE FLUSH Last Admin: 05/08/20 08:24 Dose: 10 ml Documented by: Medical Necessity - Tobacco Use Smoking Status: Never smoker Assessment/Plan All Active Problems Acute respiratory failure with hypoxia (Acute) COVID-19 (Acute) 1. Acute kidney injury. Baseline creatinine is 1.2 to 1.3 mg/dL. ALBERTO is secondary to ischemic ATN. HD today 2. Hyperkalemia. HD on 2K bath today 3. Acute hypoxic respiratory failure. The patient is ventilator dependent. He is being treated for Covid 19 pneumonia along with bacterial pneumonia. Ventilator management is as per pulmonary/critical care medicine service. today he remains on 50% FiO2 PEEP is lower than yesterday fluid removal limited by BP during dialysis. no pressors on board will assess daily for dialysis needs
[2020-05-08 15:12] LABS: Hepatitis B Core Ab Total Negative (Negative)
--- NOTE | 2020-05-08 17:39 | PCM.PROGNOTE ---
Patient Problems: Active and Suspected Problems Acute respiratory failure with hypoxia (Acute) COVID-19 (Acute) Subjective: Patient was seen and examined today, he remains sedated on the ventilator, he had dialysis today. Objective: Objective: General: - - Patient is sedated on the ventilator HEENT: Atraumatic, PERRLA, Normocephalic Oral: Moist Mucosa Neck: Supple, No JVD, Trachea Midline, Thyroid Normal Size and Texture Lungs: Clear to auscultation, Normal air movement, No rhonchi, No wheeze, No rales Cardiovascular: Regular rate, Regular Rhythm, Normal S1, Normal S2, No murmurs, PMI Normal, No rub noted Abdomen: Bowel Sounds Present, Soft, Non Tender, Non-Distended, Obese Extremities: No clubbing, No cyanosis, No edema, Capillary Refill Less than 3 Seconds Skin: No rashes, No breakdown Musculoskeletal: No Tenderness to Palpation of Joints or Extremities Neurological: - - Patient is sedated and on the ventilator Psych/Mental Status: - - Patient is sedated and on the ventilator - Physical Exam Vitals/I&O's: Vital Signs Temp Pulse Resp BP Pulse Ox 99.2 F H 100 22 H 124/60 H 92 05/08/20 16:00 05/08/20 17:00 05/08/20 17:00 05/08/20 17:00 05/08/20 17:00 Oxygen Flow Rate (L/min) 60 Oxygen Delivery Method Mechanical Ventilator Weight: 164.8 kg Body Mass Index (BMI) 49.0 Intake and Output for Last 24 Hours 05/06/20 05/07/20 05/08/20 23:59 23:59 23:59 Intake Total 2946.50 / 2961.50 3007.78 / 3007.78 1674.78 / 1674.78 Output Total 2820 / 2820 640 / 640 70 / 70 Balance 126.50 / 141.50 2367.78 / 2367.78 1604.78 / 1604.78 Laboratory Results 05/07/20 05:11: Hep B Core Total Ab Negative 05/07/20 17:06: POC Glucose 171 H 05/07/20 23:17: POC Glucose 135 H 05/08/20 03:20: WBC 17.8 H, RBC 4.12 L, Hgb 11.2 L, Hct 35.8 L, MCV 86.9 D, MCH 27.2, MCHC 31.3 L, RDW Std Deviation 48.6 H, RDW Coeff of Citlaly 15.3 H, Plt Count 241, MPV 11.4, Immature Gran % (Auto) 1.700 H, Neut % (Auto) 85.5 H, Lymph % (Auto) 4.5 L, [place] % (Auto) 7.5, Eos % (Auto) 0.6, Baso % (Auto) 0.2, Absolute Neuts (auto) 15.2 H, Absolute Lymphs (auto) 0.81 L, Nucleated RBC % 0.1 05/08/20 03:20: Sodium 140, Potassium 5.7 H, Chloride 104, Carbon Dioxide 26.0, Anion Gap 10, BUN 135 H*, Creatinine 3.61 H, Estim Creat Clear Calc 21.50, Est GFR (MDRD) Af Amer 22 L, Est GFR (MDRD) Non-Af 18 L, BUN/Creatinine Ratio 37.4 H, Glucose 124 H, Calcium 8.2 L 05/08/20 05:06: POC Glucose 111 H 05/08/20 11:57: POC Glucose 146 H Current Medications Acetaminophen (Acetaminophen 650 Mg/20 Ml Udc) 650 mg GT Q6H PRN PRN PRN Reason: Pain Score 1-10/Temp > 100.7 F Last Admin: 05/05/20 14:06 Dose: 650 mg Documented by: Albuterol Sulfate (Albuterol Sulfate 18 Gm Inhaler (200 Puffs)) 2 puff IH Q4H PRN PRN PRN Reason: Shortness of breath, wheezing Last Admin: 04/27/20 01:30 Dose: 2 puff Documented by: Albuterol/Ipratropium (Ipratropium/Albuterol Sulfate 3 Ml Ampul.Neb) 3 ml INHALATION Q6HWA.RT [facility] Last Admin: 05/08/20 14:18 Dose: 3 ml Documented by: Aspirin (Aspirin 81 Mg Tab.Chew) 81 mg GT DAILY [facility] Last Admin: 05/08/20 08:14 Dose: 81 mg Documented by: Atorvastatin Calcium (Atorvastatin Calcium 40 Mg Tablet) 40 mg GT QHS [facility] Last Admin: 05/07/20 20:48 Dose: 40 mg Documented by: Bupropion HCl (Bupropion 100 Mg Tablet) 150 mg PO BID [facility] Last Admin: 05/08/20 08:13 Dose: 150 mg Documented by: Chlorhexidine Gluconate (Chlorhexidine 15 Ml) 15 ml PO BID [facility] Last Admin: 05/08/20 08:15 Dose: 15 ml Documented by: Dexamethasone Sodium Phosphate (Dexamethasone 4 Mg/Ml Vial) 6 mg IV QAM [facility] Stop: 05/15/20 10:01 Last Admin: 05/08/20 08:14 Dose: 6 mg Documented by: Hydralazine HCl (Hydralazine 20 Mg/Ml Vial) 10 mg IV Q4H PRN PRN PRN Reason: systolic >160 Last Admin: 05/08/20 03:11 Dose: 10 mg Documented by: Sodium Chloride () 250 mls @ 15 mls/hr IV .[id number] PRN PRN Reason: Saline Flush Last Infusion: 05/05/20 04:00 Dose: Infused Documented by: Sodium Chloride () 250 mls @ 15 mls/hr IV .[id number] PRN PRN Reason: Additional IVPB Infusion Fentanyl Citrate 1,000 mcg/ (Sodium Chloride) 100 mls @ 5 mls/hr CONT INF .Q20H [facility]; Protocol Last Titration: 05/08/20 16:00 Dose: 125 mcg/hr, 12.5 mls/hr Documented by: Propofol (Diprivan) 1,000 mg in 100 mls @ 9.888 mls/hr CONT INF .Q10H7M [facility]; Protocol Last Titration: 05/08/20 16:30 Dose: 20 mcg/kg/min, 19.8 mls/hr Documented by: Pantoprazole Sodium 40 mg/ (Sodium Chloride) 110 mls @ 330 mls/hr IV Q12 [facility] Last Infusion: 05/08/20 10:20 Dose: Infused Documented by: Enteral Nutritional Formula (Vital High Protein) 1,000 mls @ 75 mls/hr GT .[id number] [facility] Last Admin: 05/08/20 14:19 Dose: 75 mls/hr Documented by: Insulin Human Lispro (Insulin Lispro 100 Unit/Ml Insuln.Pen) 0 unit SC Q6 [facility]; Protocol Last Admin: 05/08/20 12:08 Dose: Not Given Documented by: Metoprolol Tartrate (Metoprolol Tartrate 50 Mg Tablet) 50 mg GT BID [facility] Last Admin: 05/08/20 08:13 Dose: 50 mg Documented by: Metoprolol Tartrate (Metoprolol Tartrate 5 Mg/5 Ml Vial) 5 mg IV Q4H PRN PRN Reason: systolic >160 Last Admin: 05/08/20 05:11 Dose: 5 mg Documented by: Miscellaneous Information (Inhaler, Assist Devices 1 Each Spacer) 1 each INHALATION PRN PRN PRN Reason: WITH ALBUTEROL MDI Last Admin: 04/27/20 16:41 Dose: 1 each Documented by: Multi-Ingredient Cream (Petrolatum,White 3.75gm Opth.Tube) 1 applic OPHTHALMIC BID [facility] Last Admin: 05/08/20 08:14 Dose: 1 applicatio Documented by: Ondansetron HCl (Ondansetron 4 Mg/2 Ml Vial) 4 mg IV Q8H PRN PRN PRN Reason: NAUSEA/VOMITING Polyethylene Glycol (Polyethylene Glycol 3350 17 Gm Packet) 17 gm GT DAILY [facility] Last Admin: 05/08/20 08:13 Dose: 17 gm Documented by: Quetiapine Fumarate (Quetiapine 25 Mg Tablet) 25 mg PO BID [facility] Last Admin: 05/08/20 08:13 Dose: 25 mg Documented by: Senna/Docusate Sodium (Senna/Docusate Sodium 1 Tablet) 2 tablet GT BID [facility] Last Admin: 05/08/20 08:13 Dose: 2 tablet Documented by: Sodium Chloride (0.9% Saline Lock 10 Ml Syringe) 10 - 40 ml IV UD PRN PRN Reason: SALINE FLUSH Last Admin: 05/08/20 08:24 Dose: 10 ml Documented by: Medical Necessity - Tobacco Use Smoking Status: Never smoker Assessment/Plan All Active Problems Acute respiratory failure with hypoxia (Acute) COVID-19 (Acute) #1 COVID-19 pneumonia-patient completed his treatment for COVID-19 pneumonia, he is off antibiotics at this time. #2 acute hypoxic respiratory failure secondary to #1-prognosis is guarded at this time #3 coronary artery disease #4 essential hypertension #5 paroxysmal atrial fibrillation-patient is on Eliquis chronically #6 morbid obesity #7 Acute renal failure-nephrology is seeing patient, patient underwent dialysis today #8 hyperkalemia-nephrology is addressing this #9 sputum culture positive for methicillin sensitive staph aureus-infectious diseases is participating in his care, it appears that the patient is off antibiotics at this time Inpatient E&M: [id number] Subs Hosp L2
[2020-05-08 17:50] LABS: Bedside Glucose 142 mg/dL (70-110)
[2020-05-08] MEDS: Propofol 10MG/Ml 1,000 MG/100 ML Bottle 29.7 MG CONT INF (18:15)
[2020-05-08] MEDS: LORazepam 2 MG/ML Syringe IV (19:46)
[2020-05-08] MEDS: Atorvastatin Calcium 40 MG Tablet GT (20:58)
[2020-05-08] MEDS: Propofol 10MG/Ml 1,000 MG/100 ML Bottle 34.6 MG CONT INF (21:20)
--- NOTE | 2020-05-08 21:55 | RAD_ITS ---
HISTORY: INCREASED WORK OF BREATHING Comparison is from April 29, 2020, and May 06, 2020. Findings: The endotracheal tube terminates superimposed over the trachea, below the level of the clavicular heads, and above the yisel. Esophagogastric tube's tip is below the diaphragm. Left subclavian central venous catheter terminates superimposed over the anticipated location of the left brachiocephalic vein, or the aortic arch Large bore right IJ central venous catheter terminates superimposed over the anticipated location of the SVC, near the level of the right main bronchus.. Lungs are adequately expanded with diffuse bilateral airspace disease to a similar degree of severity as the previous study Heart is not enlarged. Possible small left pleural. RAD/Chest 1 View (Portable) IMPRESSION: The left subclavian central venous catheter likely has been slightly pulled back. It likely terminates in the left brachiocephalic vein, but on these projections provided it cannot be excluded from terminating within the aorta. On the previous study it was better demonstrated to likely be within the left brachiocephalic vein, with the patient in less rotation and more optimal presentation for suggesting tip position of the left subclavian catheter Diffuse lung disease unchanged. at 2228 Reported and signed by: Pito Almendarez MD Electronically Signed: Pito Almendarez MD at 22:27 EST Tel , Service support ,
[2020-05-08] MEDS: Acetaminophen 650 MG/20 ML UDC GT (22:29)
[2020-05-08 22:36] LABS: Base Excess -1 mmol/L (-2 to +2); Blood Gas Specimen Type ART; FI02 50; Mode AC; O2 Delivery Device Adult Vent; PEEP 10; PO2 73 mmHG (75-100); RR 18; SITE L Radial; SO2 95 % (95-99); Total Carbon Dioxide 25 mmol/L; Vt 500; pCO2 38.3 mmHg (35-45); pH 7.41 (7.35-7.45)
[2020-05-08] MEDS: Ondansetron 4 MG/2 ML Vial IV (22:47)
[2020-05-08] MEDS: Propofol 10MG/Ml 1,000 MG/100 ML Bottle 39.6 MG CONT INF (22:55)
--- NOTE | 2020-05-08 22:55 | NURSING ---
incontinence care being performed when ST elevation noted on monitor, EKG obtained, MD made aware, new orders received. Pt with moderate creamy/brown emesis, zofran given, tube feed placed on hold at this time.
--- NOTE | 2020-05-08 23:11 | NURSING ---
propofol decreased to 25 mcg/kg/min due to hypotension.
[2020-05-09] VITALS (44 sets, daily range): BP systolic 85–200; BP diastolic 42–97; PULSE 87–118; RESP 16–37; TEMP 37.1–37.7; O2SAT 92–100
[2020-05-09 04:54] LABS: Absolute Lymphocyte Count 1.32 X10^3/uL (0.83-4.51); Absolute Neutrophil Count 14.4 X10^3/uL (2.0-7.7); Basophil# 0.06 X10^3/uL; Basophil% 0.3 % (0-1); Eosinophil# 0.15 X10^3/uL; Eosinophils% 0.8 % (0-5); Hematocrit 34.9 % (40-54); Lymphocyte # 1.32 X10^3/ul (4.0); Lymphocyte % 7.4 % (19-41); Mean Corp Hgb Conc 31.5 g/dL (32-36); Mean Corpuscular Hgb 27.5 pg (27.0-32.0); Mean Corpuscular Volume 87.3 fL (80-94); Mean Platelet Vol. 11.5 fl (6.2-12.0); Monocyte# 1.45 X10^3/uL; Monocyte% 8.1 % (0-10); NRBC Flagged by Analyzer 0.2 % (0-5); Neutrophil # 14.41 X10^3/uL (2.7-7.7); Neutrophil % 80.5 % (47-70); Platelet Count 231 K/mm3 (150-450); RBC Distribution Width CV 15.2 % (11.6-14.6); White Blood Count 17.9 K/mm3 (4.4-11.0)
[2020-05-09] MEDS: TITRATION PARAMETER CHANGE 1 EACH IV (05:11)
[2020-05-09 05:52] LABS: Anion Gap 11 (5-15); BUN 103 mg/dL (7-18); BUN/Creat Ratio 26.7 RATIO (10-20); Calcium,Total 7.9 mg/dL (8.5-10.1); Chloride 101 mmol/L (98-107); Creatinine, Serum 3.86 mg/dL (0.70-1.30); EST Glomerular Filtration Rate 17 mL/min (>60); Est Glom Filt Rate - Afr Amer 20 mL/min (>60); Glucose 124 mg/dL (74-106); Magnesium 2.6 mg/dL (1.6-2.6); Phosphorus 11.7 mg/dL (2.5-4.9); Potassium 5.7 mmol/L (3.5-5.1); Sodium Level 137 mmol/L (136-145)
[2020-05-09] MEDS: Ipratropium/Albuterol Sulfate 3 ML AMPUL.NEB INHALATION ×3 (07:14→19:08)
--- NOTE | 2020-05-09 07:53 | PCM.PN.INT ---
Subjective: Patient did okay overnight. Patient had some agitation and tachypnea. Patient also had a question of ST elevations associated with movement, so troponins were obtained. ABG and chest x-ray were unremarkable, so no vent changes were made. General: - - Intubated and sedated. RASS -2. Morbidly obese. Anasarca noted. HEENT: Atraumatic, PERRLA, EOMI, Normocephalic, - - Scleral injection and edema noted. Oral: Moist Mucosa, No Gingival or Mucosal Lesions/ Ulcerations, - - Crowded posterior pharynx Neck: Supple, No Nodes, Trachea Midline, - - Lines are clean, dry and intact Lungs: No rhonchi, No wheeze, No rales, Diminished, - - Symmetric expansion Cardiovascular: Normal S1, Normal S2, No murmurs, No rub noted, No Gallop, Tachycardic Abdomen: Bowel Sounds Present, Soft, Non Tender, Non-Distended, Obese Extremities: No clubbing, No cyanosis, Edema Skin: - - Mottling better of the lower extremities Musculoskeletal: No Tenderness to Palpation of Joints or Extremities Lymphatic: No Cervical, Supraclavicular, or Inguinal Adenopathy Neurological: Cranial nerves II-XII grossly intact, Neuro grossly intact Psych/Mental Status: Flat Affect Vital Signs Temp Pulse Resp BP Pulse Ox 37.1 C 95 23 H 88/45 L 93 05/09/20 06:00 05/09/20 07:15 05/09/20 07:15 05/09/20 06:00 05/09/20 07:15 Oxygen Flow Rate (L/min) 60 Oxygen Delivery Method Mechanical Ventilator Weight: 166.4 kg Body Mass Index (BMI) 49.0 Intake and Output for Last 24 Hours 05/07/20 05/08/20 05/09/20 23:59 23:59 23:59 Intake Total 3007.78 / 3007.78 3408.93 / 3416.38 540.77 / 540.77 Output Total 640 / 640 170 / 170 5 / 5 Balance 2367.78 / 2367.78 3238.93 / 3246.38 535.77 / 535.77 Labs (Last 48 Hours) 05/07/20 05/07/20 05/07/20 05:11 05:11 08:00 WBC RBC Hgb Hct MCV MCH MCHC RDW Std Deviation RDW Coeff of Citlaly Plt Count MPV Immature Gran % (Auto) Neut % (Auto) Lymph % (Auto) [place] % (Auto) Eos % (Auto) Baso % (Auto) Absolute Neuts (auto) Absolute Lymphs (auto) Nucleated RBC % Specimen Type ART Sample Site R Radial pH 7.20 L Bicarbonate Actual 28.5 H Total CO2 31 Base Excess 1 O2 Saturation 92 L O2 % 50 ABG pCO2 72.7 H* ABG pO2 79 Philip Test Positive Respiration Rate 16 O2 Delivery Device Adult Vent Vent Mode AC Tidal Volume 500 POC PEEP 14 Sodium Potassium Chloride Carbon Dioxide Anion Gap BUN Creatinine Estim Creat Clear Calc Est GFR (MDRD) Af Amer Est GFR (MDRD) Non-Af BUN/Creatinine Ratio Glucose Calcium Phosphorus Magnesium Troponin I Hep Bs Antigen Non-Reactive Hep Bs Antibody Non-Reactive Hep B Core Total Ab Negative POC Glucose 05/07/20 05/07/20 05/07/20 11:04 17:06 17:10 WBC RBC Hgb Hct MCV MCH MCHC RDW Std Deviation RDW Coeff of Citlaly Plt Count MPV Immature Gran % (Auto) Neut % (Auto) Lymph % (Auto) [place] % (Auto) Eos % (Auto) Baso % (Auto) Absolute Neuts (auto) Absolute Lymphs (auto) Nucleated RBC % Specimen Type Sample Site pH Bicarbonate Actual Total CO2 Base Excess O2 Saturation O2 % ABG pCO2 ABG pO2 Philip Test Respiration Rate O2 Delivery Device Vent Mode Tidal Volume POC PEEP Sodium Potassium 5.6 H Chloride Carbon Dioxide Anion Gap BUN Creatinine Estim Creat Clear Calc Est GFR (MDRD) Af Amer Est GFR (MDRD) Non-Af BUN/Creatinine Ratio Glucose Calcium Phosphorus Magnesium Troponin I Hep Bs Antigen Hep Bs Antibody Hep B Core Total Ab POC Glucose 142 H 171 H 05/07/20 05/08/20 05/08/20 23:17 03:20 03:20 WBC 17.8 H RBC 4.12 L Hgb 11.2 L Hct 35.8 L MCV 86.9 D MCH 27.2 MCHC 31.3 L RDW Std Deviation 48.6 H RDW Coeff of Citlaly 15.3 H Plt Count 241 MPV 11.4 Immature Gran % (Auto) 1.700 H Neut % (Auto) 85.5 H Lymph % (Auto) 4.5 L [place] % (Auto) 7.5 Eos % (Auto) 0.6 Baso % (Auto) 0.2 Absolute Neuts (auto) 15.2 H Absolute Lymphs (auto) 0.81 L Nucleated RBC % 0.1 Specimen Type Sample Site pH Bicarbonate Actual Total CO2 Base Excess O2 Saturation O2 % ABG pCO2 ABG pO2 Philip Test Respiration Rate O2 Delivery Device Vent Mode Tidal Volume POC PEEP Sodium 140 Potassium 5.7 H Chloride 104 Carbon Dioxide 26.0 Anion Gap 10 BUN 135 H* Creatinine 3.61 H Estim Creat Clear Calc 21.50 Est GFR (MDRD) Af Amer 22 L Est GFR (MDRD) Non-Af 18 L BUN/Creatinine Ratio 37.4 H Glucose 124 H Calcium 8.2 L Phosphorus Magnesium Troponin I Hep Bs Antigen Hep Bs Antibody Hep B Core Total Ab POC Glucose 135 H 05/08/20 05/08/20 05/08/20 05:06 11:57 17:38 WBC RBC Hgb Hct MCV MCH MCHC RDW Std Deviation RDW Coeff of Citlaly Plt Count MPV Immature Gran % (Auto) Neut % (Auto) Lymph % (Auto) [place] % (Auto) Eos % (Auto) Baso % (Auto) Absolute Neuts (auto) Absolute Lymphs (auto) Nucleated RBC % Specimen Type Sample Site pH Bicarbonate Actual Total CO2 Base Excess O2 Saturation O2 % ABG pCO2 ABG pO2 Philip Test Respiration Rate O2 Delivery Device Vent Mode Tidal Volume POC PEEP Sodium Potassium Chloride Carbon Dioxide Anion Gap BUN Creatinine Estim Creat Clear Calc Est GFR (MDRD) Af Amer Est GFR (MDRD) Non-Af BUN/Creatinine Ratio Glucose Calcium Phosphorus Magnesium Troponin I Hep Bs Antigen Hep Bs Antibody Hep B Core Total Ab POC Glucose 111 H 146 H 142 H 05/08/20 05/08/20 05/09/20 22:30 23:00 02:00 WBC RBC Hgb Hct MCV MCH MCHC RDW Std Deviation RDW Coeff of Citlaly Plt Count MPV Immature Gran % (Auto) Neut % (Auto) Lymph % (Auto) [place] % (Auto) Eos % (Auto) Baso % (Auto) Absolute Neuts (auto) Absolute Lymphs (auto) Nucleated RBC % Specimen Type ART Sample Site L Radial pH 7.41 Bicarbonate Actual 24.0 Total CO2 25 Base Excess -1 O2 Saturation 95 O2 % 50 ABG pCO2 38.3 ABG pO2 73 L Philip Test Respiration Rate 18 O2 Delivery Device Adult Vent Vent Mode AC Tidal Volume 500 POC PEEP 10 Sodium Potassium Chloride Carbon Dioxide Anion Gap BUN Creatinine Estim Creat Clear Calc Est GFR (MDRD) Af Amer Est GFR (MDRD) Non-Af BUN/Creatinine Ratio Glucose Calcium Phosphorus Magnesium Troponin I 0.367 H 0.377 H Hep Bs Antigen Hep Bs Antibody Hep B Core Total Ab POC Glucose 05/09/20 05/09/20 05/09/20 04:40 04:40 04:40 WBC 17.9 H RBC 4.00 L Hgb 11.0 L Hct 34.9 L MCV 87.3 MCH 27.5 MCHC 31.5 L RDW Std Deviation 48.0 H RDW Coeff of Citlaly 15.2 H Plt Count 231 MPV 11.5 Immature Gran % (Auto) 2.900 H Neut % (Auto) 80.5 H Lymph % (Auto) 7.4 L [place] % (Auto) 8.1 Eos % (Auto) 0.8 Baso % (Auto) 0.3 Absolute Neuts (auto) 14.4 H Absolute Lymphs (auto) 1.32 Nucleated RBC % 0.2 Specimen Type Sample Site pH Bicarbonate Actual Total CO2 Base Excess O2 Saturation O2 % ABG pCO2 ABG pO2 Philip Test Respiration Rate O2 Delivery Device Vent Mode Tidal Volume POC PEEP Sodium 137 Potassium 5.7 H Chloride 101 Carbon Dioxide 25.0 Anion Gap 11 BUN 103 H* Creatinine 3.86 H Estim Creat Clear Calc 20.10 Est GFR (MDRD) Af Amer 20 L Est GFR (MDRD) Non-Af 17 L BUN/Creatinine Ratio 26.7 H Glucose 124 H Calcium 7.9 L Phosphorus 11.7 H* Magnesium 2.6 Troponin I 0.375 H Hep Bs Antigen Hep Bs Antibody Hep B Core Total Ab POC Glucose Clinical Impression(s) from Imaging Studies Chest X-Ray 05/08/20 21:55 IMPRESSION: The left subclavian central venous catheter likely has been slightly pulled back. It likely terminates in the left brachiocephalic vein, but on these projections provided it cannot be excluded from terminating within the aorta. On the previous study it was better demonstrated to likely be within the left brachiocephalic vein, with the patient in less rotation and more optimal presentation for suggesting tip position of the left subclavian catheter Diffuse lung disease unchanged. at 2228 Reported and signed by: Pito Almendarez MD Electronically Signed: Pito Almendarez MD at 22:27 EST Tel , Service support , Medical Necessity - Tobacco Use Smoking Status: Never smoker Assessment/Plan All Active Problems Acute respiratory failure with hypoxia (Acute) COVID-19 (Acute) RECOMMENDATIONS: 1. Wean fentanyl and propofol as tolerated, along with scheduled Seroquel. 2. Dialysis per nephrology 3. Wean rate given possible air trapping. Possibly wean respiratory rate through the day. Wean FiO2 and PEEP as tolerated. 4. Continue bowel regimen and tube feeds as tolerated 5. Monitor off antimicrobials per ID recommendations. 6. Continue to hold Eliquis 7. Continue Decadron as ordered to complete treatment course. 8. Continue appropriate GI prophylaxis. IMPRESSIONS: 1. Acute hypoxemic respiratory failure secondary to ARDS due to COVID-19/MSSA pneumonia The patient was initially diagnosed 1 week prior to hospital admission. Although attempts were made to utilize high flow oxygen and noninvasive positive pressure ventilatory support, the patient continued to decompensate from a respiratory perspective, requiring transfer to ICU and subsequent intubation on April 29. The patient has gone on to develop fulminant ARDS with high ventilator requirements. The patient has completed a treatment course of remdesivir and will remain on Decadron per infectious disease. The patient will remain on appropriate antimicrobials well per ID recommendations. Patient appears to be tolerating transition to assist control. Respiratory rate will be decreased given some failure to make it back to baseline. 2. ALBERTO on CKD/hyperkalemia Possibly prerenal in etiology. Patient continues to have decent urine output, but uremia and creatinine are significantly elevated. Patient also has hyperkalemia. Patient receiving hemodialysis now with a low potassium bath. EKG did not show any significant changes. Volume removal would be ideal if possible, but would not hesitate OFFICE SYSTEM ANALYST today from a respiratory standpoint. Nephrology following 3. Obesity/hypertension/hyperlipidemia/paroxysmal atrial fibrillation/coronary artery disease/GERD Complicates care, management, recovery and prognosis. Continue home medications as indicated. Discussed with family members about the severity of patient's prognosis. They understand and want to proceed in an aggressive fashion. 4. Hypertensive urgency Clinical suspicion for elevated blood pressure and respiratory rate secondary to agitation. Patient had significant uremia previously that likely led to an element of neurologic depression. This is improving with dialysis. May need to titrate up on propofol TIME: 38 minutes of critical care time, independent of procedures, was spent addressing the patient's acute hypoxemic respiratory failure secondary to ARDS due to COVID-19 pneumonia, paroxysmal atrial fibrillation, coronary artery disease, ALBERTO, review of all data and collaboration with care team. (6 AM to 7:30 AM) [id number]: [id number] Critical care first hour
[2020-05-09] MEDS: buPROPion 100 MG Tablet 150 MG PO ×2 (08:24→20:26)
[2020-05-09] MEDS: 0.9% Saline Lock 10 ML Syringe IV ×4 (08:24→20:32)
[2020-05-09] MEDS: Polyethylene Glycol 3350 17 GM PACKET GT (08:24)
[2020-05-09] MEDS: Senna/Docusate Sodium 1 Tablet 2 TABLET GT ×2 (08:24→21:40)
[2020-05-09] MEDS: Aspirin 81 MG TAB.CHEW GT (08:24)
[2020-05-09] MEDS: QUEtiapine 25 MG Tablet PO ×2 (08:25→20:26)
[2020-05-09] MEDS: Metoprolol Tartrate 50 MG Tablet GT ×2 (08:25→20:26)
[2020-05-09] MEDS: Chlorhexidine 15 ML PO ×2 (08:28→20:32)
[2020-05-09] MEDS: dexAMETHasone 4 MG/ML Vial 6 MG IV (08:28)
[2020-05-09] MEDS: Petrolatum,White 3.75GM OPTH.TUBE 1 APPLIC OPHTHALMIC ×2 (08:29→20:27)
[2020-05-09 08:33] LABS: Bedside Glucose 121 mg/dL (70-110)
[2020-05-09] MEDS: Vital High Protein 1,000 ML 75 ML GT ×2 (09:06→21:47)
[2020-05-09] MEDS: Propofol 10MG/Ml 1,000 MG/100 ML Bottle 5 MG CONT INF (09:25)
[2020-05-09] MEDS: Menthol/Lanolin/Calamine/Znox 113 GM Tube 1 APPLIC TOPICAL ×2 (12:29→23:44)
[2020-05-09 13:06] LABS: Bedside Glucose 122 mg/dL (70-110)
[2020-05-09 13:06] LABS: Bedside Glucose 144 mg/dL (70-110)
--- NOTE | 2020-05-09 14:49 | PN.RENAL_ITS ---
Patient Problems: Active and Suspected Problems Acute respiratory failure with hypoxia (Acute) COVID-19 (Acute) Subjective: intubated - Physical Exam Vitals/I&O's: Vital Signs Temp Pulse Resp BP Pulse Ox 99.5 F H 103 H 30 H 157/62 H 92 05/09/20 14:00 05/09/20 14:00 05/09/20 14:00 05/09/20 14:00 05/09/20 14:00 Oxygen Flow Rate (L/min) 60 Oxygen Delivery Method Mechanical Ventilator Weight: 166.4 kg Body Mass Index (BMI) 49.0 Intake and Output for Last 24 Hours 05/07/20 05/08/20 05/09/20 23:59 23:59 23:59 Intake Total 3007.78 / 3007.78 3408.93 / 3416.38 843.69 / 843.69 Output Total 640 / 640 170 / 170 Balance 2367.78 / 2367.78 3238.93 / 3246.38 820.69 / 820.69 Comment: exam minimized due to covid Laboratory Results 05/07/20 05:11: Hep B Core Total Ab Negative 05/08/20 17:38: POC Glucose 142 H 05/08/20 22:30: Specimen Type ART, Sample Site L Radial, pH 7.41, Bicarbonate Actual 24.0, Total CO2 25, Base Excess -1, O2 Saturation 95, O2 % 50, ABG pCO2 38.3, ABG pO2 73 L, Respiration Rate 18, O2 Delivery Device Adult Vent, Vent Mode AC, Tidal Volume 500, POC PEEP 10 05/08/20 22:53: POC Glucose 121 H 05/08/20 23:00: Troponin I 0.367 H 05/09/20 02:00: Troponin I 0.377 H 05/09/20 04:21: POC Glucose 122 H 05/09/20 04:40: WBC 17.9 H, RBC 4.00 L, Hgb 11.0 L, Hct 34.9 L, MCV 87.3, MCH 27.5, MCHC 31.5 L, RDW Std Deviation 48.0 H, RDW Coeff of Citlaly 15.2 H, Plt Count 231, MPV 11.5, Immature Gran % (Auto) 2.900 H, Neut % (Auto) 80.5 H, Lymph % (Auto) 7.4 L, [place] % (Auto) 8.1, Eos % (Auto) 0.8, Baso % (Auto) 0.3, Absolute Neuts (auto) 14.4 H, Absolute Lymphs (auto) 1.32, Nucleated RBC % 0.2 05/09/20 04:40: Sodium 137, Potassium 5.7 H, Chloride 101, Carbon Dioxide 25.0, Anion Gap 11, BUN 103 H*, Creatinine 3.86 H, Estim Creat Clear Calc 20.10, Est GFR (MDRD) Af Amer 20 L, Est GFR (MDRD) Non-Af 17 L, BUN/Creatinine Ratio 26.7 H , Glucose 124 H, Calcium 7.9 L, Phosphorus 11.7 H*, Magnesium 2.6 05/09/20 04:40: Troponin I 0.375 H 05/09/20 12:25: POC Glucose 144 H Current Medications Acetaminophen (Acetaminophen 650 Mg/20 Ml Udc) 650 mg GT Q6H PRN PRN PRN Reason: TEMP > 100 Last Admin: 05/08/20 22:29 Dose: 650 mg Documented by: Albuterol Sulfate (Albuterol Sulfate 18 Gm Inhaler (200 Puffs)) 2 puff IH Q4H PRN PRN PRN Reason: Shortness of breath, wheezing Last Admin: 04/27/20 01:30 Dose: 2 puff Documented by: Albuterol/Ipratropium (Ipratropium/Albuterol Sulfate 3 Ml Ampul.Neb) 3 ml INHALATION Q6HWA.RT [facility] Last Admin: 05/09/20 13:40 Dose: 3 ml Documented by: Aspirin (Aspirin 81 Mg Tab.Chew) 81 mg GT DAILY [facility] Last Admin: 05/09/20 08:24 Dose: 81 mg Documented by: Atorvastatin Calcium (Atorvastatin Calcium 40 Mg Tablet) 40 mg GT QHS [facility] Last Admin: 05/08/20 20:58 Dose: 40 mg Documented by: Bupropion HCl (Bupropion 100 Mg Tablet) 150 mg PO BID [facility] Last Admin: 05/09/20 08:24 Dose: 150 mg Documented by: Calamine/Phenol (Menthol/Lanolin/Calamine/Znox 113 Gm Tube) 1 applic TOPICAL TID [facility]; Protocol Last Admin: 05/09/20 12:29 Dose: 1 applicatio Documented by: Chlorhexidine Gluconate (Chlorhexidine 15 Ml) 15 ml PO BID [facility] Last Admin: 05/09/20 08:28 Dose: 15 ml Documented by: Dexamethasone Sodium Phosphate (Dexamethasone 4 Mg/Ml Vial) 6 mg IV QAM [facility] Stop: 05/15/20 10:01 Last Admin: 05/09/20 08:28 Dose: 6 mg Documented by: Hydralazine HCl (Hydralazine 20 Mg/Ml Vial) 10 mg IV Q4H PRN PRN PRN Reason: systolic >160 Last Admin: 05/08/20 03:11 Dose: 10 mg Documented by: Sodium Chloride () 250 mls @ 15 mls/hr IV .[id number] PRN PRN Reason: Saline Flush Last Infusion: 05/05/20 04:00 Dose: Infused Documented by: Sodium Chloride () 250 mls @ 15 mls/hr IV .[id number] PRN PRN Reason: Additional IVPB Infusion Pantoprazole Sodium 40 mg/ (Sodium Chloride) 110 mls @ 330 mls/hr IV Q12 [facility] Last Infusion: 05/09/20 09:26 Dose: Infused Documented by: Enteral Nutritional Formula (Vital High Protein) 1,000 mls @ 75 mls/hr GT .[id number] [facility] Last Admin: 05/09/20 09:06 Dose: 75 mls/hr Documented by: Propofol (Diprivan) 1,000 mg in 100 mls @ 9.984 mls/hr CONT INF .Q10H1M [facility]; Protocol Last Titration: 05/09/20 14:00 Dose: 5 mcg/kg/min, 5 mls/hr Documented by: Fentanyl Citrate 1,000 mcg/ (Sodium Chloride) 100 mls @ 5 mls/hr CONT INF .Q20H [facility]; Protocol Last Titration: 05/09/20 14:00 Dose: 100 mcg/hr, 10 mls/hr Documented by: Insulin Human Lispro (Insulin Lispro 100 Unit/Ml Insuln.Pen) 0 unit SC Q6 [facility]; Protocol Last Admin: 05/09/20 12:28 Dose: Not Given Documented by: Lorazepam (Lorazepam 2 Mg/Ml Syringe) 2 mg IV Q2H PRN PRN PRN Reason: AGITATION Last Admin: 01/07/21 19:46 Dose: 2 mg Documented by: Metoprolol Tartrate (Metoprolol Tartrate 50 Mg Tablet) 50 mg GT BID [facility] Last Admin: 05/09/20 08:25 Dose: 50 mg Documented by: Metoprolol Tartrate (Metoprolol Tartrate 5 Mg/5 Ml Vial) 5 mg IV Q4H PRN PRN Reason: systolic >160 Last Admin: 05/08/20 05:11 Dose: 5 mg Documented by: Miscellaneous Information (Inhaler, Assist Devices 1 Each Spacer) 1 each INHALATION PRN PRN PRN Reason: WITH ALBUTEROL MDI Last Admin: 04/27/20 16:41 Dose: 1 each Documented by: Multi-Ingredient Cream (Petrolatum,White 3.75gm Opth.Tube) 1 applic OPHTHALMIC TID@0600,1200,2200 [facility] Last Admin: 05/09/20 08:29 Dose: 1 applicatio Documented by: Ondansetron HCl (Ondansetron 4 Mg/2 Ml Vial) 4 mg IV Q8H PRN PRN PRN Reason: NAUSEA/VOMITING Last Admin: 05/08/20 22:47 Dose: 4 mg Documented by: Polyethylene Glycol (Polyethylene Glycol 3350 17 Gm Packet) 17 gm GT DAILY [facility] Last Admin: 05/09/20 08:24 Dose: 17 gm Documented by: Quetiapine Fumarate (Quetiapine 25 Mg Tablet) 25 mg PO BID [facility] Last Admin: 05/09/20 08:25 Dose: 25 mg Documented by: Senna/Docusate Sodium (Senna/Docusate Sodium 1 Tablet) 2 tablet GT BID [facility] Last Admin: 05/09/20 08:24 Dose: 2 tablet Documented by: Sodium Chloride (0.9% Saline Lock 10 Ml Syringe) 10 - 40 ml IV UD PRN PRN Reason: SALINE FLUSH Last Admin: 05/09/20 09:06 Dose: 10 ml Documented by: Medical Necessity - Tobacco Use Smoking Status: Never smoker Assessment/Plan All Active Problems Acute respiratory failure with hypoxia (Acute) COVID-19 (Acute) 1. Acute kidney injury. Baseline creatinine is 1.2 to 1.3 mg/dL. ALBERTO is secondary to ischemic ATN. HD tomorrow 2. Hyperkalemia. stable 3. Acute hypoxic respiratory failure. The patient is ventilator dependent. He is being treated for Covid 19 pneumonia along with bacterial pneumonia. Ventilator management is as per pulmonary/critical care medicine service. ADAN regalado
--- NOTE | 2020-05-09 14:53 | PCM.PN.ID ---
Patient Problems: Active and Suspected Problems Acute respiratory failure with hypoxia (Acute) COVID-19 (Acute) Subjective: On vent, low grade fever overnight - Physical Exam Vitals/I&O's: Vital Signs Temp Pulse Resp BP Pulse Ox 99.5 F H 103 H 30 H 157/62 H 92 05/09/20 14:00 05/09/20 14:00 05/09/20 14:00 05/09/20 14:00 05/09/20 14:00 Oxygen Flow Rate (L/min) 60 Oxygen Delivery Method Mechanical Ventilator Weight: 166.4 kg Body Mass Index (BMI) 49.0 Intake and Output for Last 24 Hours 05/07/20 05/08/20 05/09/20 23:59 23:59 23:59 Intake Total 3007.78 / 3007.78 3408.93 / 3416.38 843.69 / 843.69 Output Total 640 / 640 170 / 170 23 / Balance 2367.78 / 2367.78 3238.93 / 3246.38 820.69 / 820.69 General: No apparent distress Lungs: Diminished Cardiovascular: Regular rate, Regular Rhythm Abdomen: Soft, Non Tender, Non-Distended Skin: No rashes Laboratory Results 05/07/20 05:11: Hep B Core Total Ab Negative 05/08/20 17:38: POC Glucose 142 H 05/08/20 22:30: Specimen Type ART, Sample Site L Radial, pH 7.41, Bicarbonate Actual 24.0, Total CO2 25, Base Excess -1, O2 Saturation 95, O2 % 50, ABG pCO2 38.3, ABG pO2 73 L, Respiration Rate 18, O2 Delivery Device Adult Vent, Vent Mode AC, Tidal Volume 500, POC PEEP 10 05/08/20 22:53: POC Glucose 121 H 05/08/20 23:00: Troponin I 0.367 H 05/09/20 02:00: Troponin I 0.377 H 05/09/20 04:21: POC Glucose 122 H 05/09/20 04:40: WBC 17.9 H, RBC 4.00 L, Hgb 11.0 L, Hct 34.9 L, MCV 87.3, MCH 27.5, MCHC 31.5 L, RDW Std Deviation 48.0 H, RDW Coeff of Citlaly 15.2 H, Plt Count 231, MPV 11.5, Immature Gran % (Auto) 2.900 H, Neut % (Auto) 80.5 H, Lymph % (Auto) 7.4 L, [place] % (Auto) 8.1, Eos % (Auto) 0.8, Baso % (Auto) 0.3, Absolute Neuts (auto) 14.4 H, Absolute Lymphs (auto) 1.32, Nucleated RBC % 0.2 05/09/20 04:40: Sodium 137, Potassium 5.7 H, Chloride 101, Carbon Dioxide 25.0, Anion Gap 11, BUN 103 H*, Creatinine 3.86 H, Estim Creat Clear Calc 20.10, Est GFR (MDRD) Af Amer 20 L, Est GFR (MDRD) Non-Af 17 L, BUN/Creatinine Ratio 26.7 H, Glucose 124 H, Calcium 7.9 L, Phosphorus 11.7 H*, Magnesium 2.6 05/09/20 04:40: Troponin I 0.375 H 05/09/20 12:25: POC Glucose 144 H Current Medications Acetaminophen (Acetaminophen 650 Mg/20 Ml Udc) 650 mg GT Q6H PRN PRN PRN Reason: TEMP > 100 Last Admin: 05/08/20 22:29 Dose: 650 mg Documented by: Albuterol Sulfate (Albuterol Sulfate 18 Gm Inhaler (200 Puffs)) 2 puff IH Q4H PRN PRN PRN Reason: Shortness of breath, wheezing Last Admin: 04/27/20 01:30 Dose: 2 puff Documented by: Albuterol/Ipratropium (Ipratropium/Albuterol Sulfate 3 Ml Ampul.Neb) 3 ml INHALATION Q6HWA.RT [facility] Last Admin: 05/09/20 13:40 Dose: 3 ml Documented by: Aspirin (Aspirin 81 Mg Tab.Chew) 81 mg GT DAILY [facility] Last Admin: 05/09/20 08:24 Dose: 81 mg Documented by: Atorvastatin Calcium (Atorvastatin Calcium 40 Mg Tablet) 40 mg GT QHS [facility] Last Admin: 05/08/20 20:58 Dose: 40 mg Documented by: Bupropion HCl (Bupropion 100 Mg Tablet) 150 mg PO BID [facility] Last Admin: 05/09/20 08:24 Dose: 150 mg Documented by: Calamine/Phenol (Menthol/Lanolin/Calamine/Znox 113 Gm Tube) 1 applic TOPICAL TID [facility]; Protocol Last Admin: 05/09/20 12:29 Dose: 1 applicatio Documented by: Chlorhexidine Gluconate (Chlorhexidine 15 Ml) 15 ml PO BID [facility] Last Admin: 05/09/20 08:28 Dose: 15 ml Documented by: Dexamethasone Sodium Phosphate (Dexamethasone 4 Mg/Ml Vial) 6 mg IV QAM [facility] Stop: 05/15/20 10:01 Last Admin: 05/09/20 08:28 Dose: 6 mg Documented by: Hydralazine HCl (Hydralazine 20 Mg/Ml Vial) 10 mg IV Q4H PRN PRN PRN Reason: systolic >160 Last Admin: 05/08/20 03:11 Dose: 10 mg Documented by: Sodium Chloride () 250 mls @ 15 mls/hr IV .[id number] PRN PRN Reason: Saline Flush Last Infusion: 05/05/20 04:00 Dose: Infused Documented by: Sodium Chloride () 250 mls @ 15 mls/hr IV .[id number] PRN PRN Reason: Additional IVPB Infusion Pantoprazole Sodium 40 mg/ (Sodium Chloride) 110 mls @ 330 mls/hr IV Q12 [facility] Last Infusion: 05/09/20 09:26 Dose: Infused Documented by: Enteral Nutritional Formula (Vital High Protein) 1,000 mls @ 75 mls/hr GT .[id number] [facility] Last Admin: 05/09/20 09:06 Dose: 75 mls/hr Documented by: Propofol (Diprivan) 1,000 mg in 100 mls @ 9.984 mls/hr CONT INF .Q10H1M [facility]; Protocol Last Titration: 05/09/20 14:00 Dose: 5 mcg/kg/min, 5 mls/hr Documented by: Fentanyl Citrate 1,000 mcg/ (Sodium Chloride) 100 mls @ 5 mls/hr CONT INF .Q20H [facility]; Protocol Last Titration: 05/09/20 14:00 Dose: 100 mcg/hr, 10 mls/hr Documented by: Insulin Human Lispro (Insulin Lispro 100 Unit/Ml Insuln.Pen) 0 unit SC Q6 [facility]; Protocol Last Admin: 05/09/20 12:28 Dose: Not Given Documented by: Lorazepam (Lorazepam 2 Mg/Ml Syringe) 2 mg IV Q2H PRN PRN PRN Reason: AGITATION Last Admin: 05/08/20 19:46 Dose: 2 mg Documented by: Metoprolol Tartrate (Metoprolol Tartrate 50 Mg Tablet) 50 mg GT BID [facility] Last Admin: 05/09/20 08:25 Dose: 50 mg Documented by: Metoprolol Tartrate (Metoprolol Tartrate 5 Mg/5 Ml Vial) 5 mg IV Q4H PRN PRN Reason: systolic >160 Last Admin: 05/08/20 05:11 Dose: 5 mg Documented by: Miscellaneous Information (Inhaler, Assist Devices 1 Each Spacer) 1 each INHALATION PRN PRN PRN Reason: WITH ALBUTEROL MDI Last Admin: 04/27/20 16:41 Dose: 1 each Documented by: Multi-Ingredient Cream (Petrolatum,White 3.75gm Opth.Tube) 1 applic OPHTHALMIC TID@0600,1200,2200 [facility] Last Admin: 05/09/20 08:29 Dose: 1 applicatio Documented by: Ondansetron HCl (Ondansetron 4 Mg/2 Ml Vial) 4 mg IV Q8H PRN PRN PRN Reason: NAUSEA/VOMITING Last Admin: 05/08/20 22:47 Dose: 4 mg Documented by: Polyethylene Glycol (Polyethylene Glycol 3350 17 Gm Packet) 17 gm GT DAILY [facility] Last Admin: 05/09/20 08:24 Dose: 17 gm Documented by: Quetiapine Fumarate (Quetiapine 25 Mg Tablet) 25 mg PO BID [facility] Last Admin: 05/09/20 08:25 Dose: 25 mg Documented by: Senna/Docusate Sodium (Senna/Docusate Sodium 1 Tablet) 2 tablet GT BID [facility] Last Admin: 05/09/20 08:24 Dose: 2 tablet Documented by: Sodium Chloride (0.9% Saline Lock 10 Ml Syringe) 10 - 40 ml IV UD PRN PRN Reason: SALINE FLUSH Last Admin: 05/09/20 09:06 Dose: 10 ml Documented by: Medical Necessity - Tobacco Use Smoking Status: Never smoker Route of nutrition/ use of supplements: [] Nutritional Intake: [] IV Site: [] Lares Catheter: [] - Assessment/Plan Antibiotics: [] Assessment/Plan: [] Active and Suspected Problems Acute respiratory failure with hypoxia (Acute) COVID-19 (Acute) covid with hypoxia - completed remdesivir. Off eliquis, not currently any anticoagulation ordered. Sx started around 04/14. Intubated 04/29, sputum cx with MSSA, completed course with cefepime. On extended course of dex. O2 improved, on vent, HD. Will follow
--- NOTE | 2020-05-09 14:56 | PCM.PROGNOTE ---
Patient Problems: Active and Suspected Problems Acute respiratory failure with hypoxia (Acute) COVID-19 (Acute) Subjective: Patient was seen and examined today in ICU, he remains sedated on the ventilator. BUN was 103 today with a creatinine of 3.86. Objective: General: - - Patient is sedated on the ventilator HEENT: Atraumatic, PERRLA, Normocephalic Oral: Moist Mucosa Neck: Supple, No JVD, Trachea Midline, Thyroid Normal Size and Texture Lungs: Clear to auscultation, Normal air movement, No rhonchi, No wheeze, No rales Cardiovascular: Regular rate, Regular Rhythm, Normal S1, Normal S2, No murmurs, PMI Normal, No rub noted Abdomen: Bowel Sounds Present, Soft, Non Tender, Non-Distended, Obese Extremities: No clubbing, No cyanosis, No edema, Capillary Refill Less than 3 Seconds Skin: No rashes, No breakdown Musculoskeletal: No Tenderness to Palpation of Joints or Extremities Neurological: - - Patient is sedated and on the ventilator Psych/Mental Status: - - Patient is sedated and on the ventilator - Physical Exam Vitals/I&O's: Vital Signs Temp Pulse Resp BP Pulse Ox 99.5 F H 103 H 30 H 157/62 H 92 05/09/20 14:00 05/09/20 14:00 05/09/20 14:00 05/09/20 14:00 05/09/20 14:00 Oxygen Flow Rate (L/min) 60 Oxygen Delivery Method Mechanical Ventilator Weight: 166.4 kg Body Mass Index (BMI) 49.0 Intake and Output for Last 24 Hours 05/07/20 05/08/20 05/09/20 23:59 23:59 23:59 Intake Total 3007.78 / 3007.78 3408.93 / 3416.38 843.69 / 843.69 Output Total 640 / 640 170 / 170 Balance 2367.78 / 2367.78 3238.93 / 3246.38 820.69 / 820.69 Laboratory Results 05/07/20 05:11: Hep B Core Total Ab Negative 05/08/20 17:38: POC Glucose 142 H 05/08/20 22:30: Specimen Type ART, Sample Site L Radial, pH 7.41, Bicarbonate Actual 24.0, Total CO2 25, Base Excess -1, O2 Saturation 95, O2 % 50, ABG pCO2 38.3, ABG pO2 73 L, Respiration Rate 18, O2 Delivery Device Adult Vent, Vent Mode AC, Tidal Volume 500, POC PEEP 10 05/08/20 22:53: POC Glucose 121 H 05/08/20 23:00: Troponin I 0.367 H 05/09/20 02:00: Troponin I 0.377 H 05/09/20 04:21: POC Glucose 122 H 05/09/20 04:40: WBC 17.9 H, RBC 4.00 L, Hgb 11.0 L, Hct 34.9 L, MCV 87.3, MCH 27.5, MCHC 31.5 L, RDW Std Deviation 48.0 H, RDW Coeff of Citlaly 15.2 H, Plt Count 231, MPV 11.5, Immature Gran % (Auto) 2.900 H, Neut % (Auto) 80.5 H, Lymph % (Auto) 7.4 L, [place] % (Auto) 8.1, Eos % (Auto) 0.8, Baso % (Auto) 0.3, Absolute Neuts (auto) 14.4 H, Absolute Lymphs (auto) 1.32, Nucleated RBC % 0.2 05/09/20 04:40: Sodium 137, Potassium 5.7 H, Chloride 101, Carbon Dioxide 25.0, Anion Gap 11, BUN 103 H*, Creatinine 3.86 H, Estim Creat Clear Calc 20.10, Est GFR (MDRD) Af Amer 20 L, Est GFR (MDRD) Non-Af 17 L, BUN/Creatinine Ratio 26.7 H, Glucose 124 H, Calcium 7.9 L, Phosphorus 11.7 H*, Magnesium 2.6 05/09/20 04:40: Troponin I 0.375 H 05/09/20 12:25: POC Glucose 144 H Current Medications Acetaminophen (Acetaminophen 650 Mg/20 Ml Udc) 650 mg GT Q6H PRN PRN PRN Reason: TEMP > 100 Last Admin: 05/08/20 22:29 Dose: 650 mg Documented by: Albuterol Sulfate (Albuterol Sulfate 18 Gm Inhaler (200 Puffs)) 2 puff IH Q4H PRN PRN PRN Reason: Shortness of breath, wheezing Last Admin: 12/27/20 01:30 Dose: 2 puff Documented by: Albuterol/Ipratropium (Ipratropium/Albuterol Sulfate 3 Ml Ampul.Neb) 3 ml INHALATION Q6HWA.RT [facility] Last Admin: 05/09/20 13:40 Dose: 3 ml Documented by: Aspirin (Aspirin 81 Mg Tab.Chew) 81 mg GT DAILY [facility] Last Admin: 05/09/20 08:24 Dose: 81 mg Documented by: Atorvastatin Calcium (Atorvastatin Calcium 40 Mg Tablet) 40 mg GT QHS [facility] Last Admin: 05/08/20 20:58 Dose: 40 mg Documented by: Bupropion HCl (Bupropion 100 Mg Tablet) 150 mg PO BID [facility] Last Admin: 05/09/20 08:24 Dose: 150 mg Documented by: Calamine/Phenol (Menthol/Lanolin/Calamine/Znox 113 Gm Tube) 1 applic TOPICAL TID [facility]; Protocol Last Admin: 05/09/20 12:29 Dose: 1 applicatio Documented by: Chlorhexidine Gluconate (Chlorhexidine 15 Ml) 15 ml PO BID [facility] Last Admin: 05/09/20 08:28 Dose: 15 ml Documented by: Dexamethasone Sodium Phosphate (Dexamethasone 4 Mg/Ml Vial) 6 mg IV QAM [facility] Stop: 05/15/20 10:01 Last Admin: 05/09/20 08:28 Dose: 6 mg Documented by: Hydralazine HCl (Hydralazine 20 Mg/Ml Vial) 10 mg IV Q4H PRN PRN PRN Reason: systolic >160 Last Admin: 05/08/20 03:11 Dose: 10 mg Documented by: Sodium Chloride () 250 mls @ 15 mls/hr IV .[id number] PRN PRN Reason: Saline Flush Last Infusion: 05/05/20 04:00 Dose: Infused Documented by: Sodium Chloride () 250 mls @ 15 mls/hr IV .[id number] PRN PRN Reason: Additional IVPB Infusion Pantoprazole Sodium 40 mg/ (Sodium Chloride) 110 mls @ 330 mls/hr IV Q12 [facility] Last Infusion: 05/09/20 09:26 Dose: Infused Documented by: Enteral Nutritional Formula (Vital High Protein) 1,000 mls @ 75 mls/hr GT .[id number] [facility] Last Admin: 05/09/20 09:06 Dose: 75 mls/hr Documented by: Propofol (Diprivan) 1,000 mg in 100 mls @ 9.984 mls/hr CONT INF .Q10H1M [facility]; Protocol Last Titration: 05/09/20 14:00 Dose: 5 mcg/kg/min, 5 mls/hr Documented by: Fentanyl Citrate 1,000 mcg/ (Sodium Chloride) 100 mls @ 5 mls/hr CONT INF .Q20H [facility]; Protocol Last Titration: 05/09/20 14:00 Dose: 100 mcg/hr, 10 mls/hr Documented by: Insulin Human Lispro (Insulin Lispro 100 Unit/Ml Insuln.Pen) 0 unit SC Q6 [facility]; Protocol Last Admin: 05/09/20 12:28 Dose: Not Given Documented by: Lorazepam (Lorazepam 2 Mg/Ml Syringe) 2 mg IV Q2H PRN PRN PRN Reason: AGITATION Last Admin: 05/08/20 19:46 Dose: 2 mg Documented by: Metoprolol Tartrate (Metoprolol Tartrate 50 Mg Tablet) 50 mg GT BID [facility] Last Admin: 05/09/20 08:25 Dose: 50 mg Documented by: Metoprolol Tartrate (Metoprolol Tartrate 5 Mg/5 Ml Vial) 5 mg IV Q4H PRN PRN Reason: systolic >160 Last Admin: 05/08/20 05:11 Dose: 5 mg Documented by: Miscellaneous Information (Inhaler, Assist Devices 1 Each Spacer) 1 each INHALATION PRN PRN PRN Reason: WITH ALBUTEROL MDI Last Admin: 04/27/20 16:41 Dose: 1 each Documented by: Multi-Ingredient Cream (Petrolatum,White 3.75gm Opth.Tube) 1 applic OPHTHALMIC TID@0600,1200,2200 [facility] Last Admin: 05/09/20 08:29 Dose: 1 applicatio Documented by: Ondansetron HCl (Ondansetron 4 Mg/2 Ml Vial) 4 mg IV Q8H PRN PRN PRN Reason: NAUSEA/VOMITING Last Admin: 05/08/20 22:47 Dose: 4 mg Documented by: Polyethylene Glycol (Polyethylene Glycol 3350 17 Gm Packet) 17 gm GT DAILY [facility] Last Admin: 05/09/20 08:24 Dose: 17 gm Documented by: Quetiapine Fumarate (Quetiapine 25 Mg Tablet) 25 mg PO BID [facility] Last Admin: 05/09/20 08:25 Dose: 25 mg Documented by: Senna/Docusate Sodium (Senna/Docusate Sodium 1 Tablet) 2 tablet GT BID [facility] Last Admin: 05/09/20 08:24 Dose: 2 tablet Documented by: Sodium Chloride (0.9% Saline Lock 10 Ml Syringe) 10 - 40 ml IV UD PRN PRN Reason: SALINE FLUSH Last Admin: 05/09/20 09:06 Dose: 10 ml Documented by: Medical Necessity - Tobacco Use Smoking Status: Never smoker Assessment/Plan All Active Problems Acute respiratory failure with hypoxia (Acute) COVID-19 (Acute) #1 COVID-19 pneumonia-patient completed his treatment for COVID-19 pneumonia, he is off antibiotics at this time. #2 acute hypoxic respiratory failure secondary to #1-prognosis is guarded at this time, pulmonary medicine is managing his ventilator settings #3 coronary artery disease #4 essential hypertension #5 paroxysmal atrial fibrillation-patient is on Eliquis chronically #6 morbid obesity #7 Acute renal failure-nephrology is seeing patient, patient is going to undergo dialysis tomorrow #8 hyperkalemia-nephrology is addressing this #9 sputum culture positive for methicillin sensitive staph aureus-infectious diseases is participating in his care, it appears that the patient is off antibiotics at this time #10 hyperphosphatemia- will add PhosLo to patient's medications Inpatient E&M: 31144 Subs Hosp L2
[2020-05-09] MEDS: hydrALAZINE 20 MG/ML Vial 10 MG IV (18:19)
[2020-05-09] MEDS: Acetaminophen 650 MG/20 ML UDC GT (18:20)
[2020-05-09 18:40] LABS: Bedside Glucose 109 mg/dL (70-110)
[2020-05-09] MEDS: Atorvastatin Calcium 40 MG Tablet GT (20:26)
[2020-05-09] MEDS: Propofol 10MG/Ml 1,000 MG/100 ML Bottle 20 MG CONT INF (20:45)
[2020-05-09 20:56] LABS: Bedside Glucose 109 mg/dL (70-110)
[2020-05-09 23:56] LABS: Bedside Glucose 125 mg/dL (70-110)
[2020-05-10] VITALS (76 sets, daily range): BP systolic 85–175; BP diastolic 39–86; PULSE 78–108; RESP 16–41; TEMP 37.1–39.1; O2SAT 83–98
[2020-05-10] MEDS: hydrALAZINE 20 MG/ML Vial 10 MG IV (00:38)
[2020-05-10] MEDS: 0.9% Saline Lock 10 ML Syringe IV (00:39)
[2020-05-10] MEDS: TITRATION PARAMETER CHANGE 1 EACH IV (00:48)
[2020-05-10] MEDS: Propofol 10MG/Ml 1,000 MG/100 ML Bottle 20 MG CONT INF (02:57)
[2020-05-10] MEDS: Dexmedetomidine 1,000 mcg in 0.9% NS 240 mL 37.6 MCG CONT INF (03:18)
[2020-05-10] MEDS: Petrolatum,White 3.75GM OPTH.TUBE 1 APPLIC OPHTHALMIC ×3 (04:55→23:07)
[2020-05-10] MEDS: Menthol/Lanolin/Calamine/Znox 113 GM Tube 1 APPLIC TOPICAL ×2 (04:55→13:31)
[2020-05-10 05:14] LABS: Absolute Lymphocyte Count 0.67 X10^3/uL (0.83-4.51); Absolute Neutrophil Count 10.7 X10^3/uL (2.0-7.7); Basophil# 0.03 X10^3/uL; Basophil% 0.2 % (0-1); Eosinophils% 0.8 % (0-5); Hematocrit 29.6 % (40-54); Hemoglobin 9.6 g/dL (13.0-16.5); Lymphocyte # 0.67 X10^3/ul (4.0); Lymphocyte % 5.3 % (19-41); Mean Corp Hgb Conc 32.4 g/dL (32-36); Mean Corpuscular Hgb 27.2 pg (27.0-32.0); Mean Corpuscular Volume 83.9 fL (80-94); Mean Platelet Vol. 11.6 fl (6.2-12.0); Monocyte# 0.96 X10^3/uL; Monocyte% 7.5 % (0-10); NRBC Flagged by Analyzer 0.2 % (0-5); Neutrophil # 10.66 X10^3/uL (2.7-7.7); Neutrophil % 83.8 % (47-70); Platelet Count 203 K/mm3 (150-450); RBC Distribution Width CV 15.2 % (11.6-14.6); RBC Distribution Width SD 45.1 fl (35.1-43.9); Red Blood Count 3.53 M/mm3 (4.6-6.2); White Blood Count 12.7 K/mm3 (4.4-11.0)
[2020-05-10 05:16] LABS: Bedside Glucose 113 mg/dL (70-110)
[2020-05-10 06:00] LABS: Albumin, Serum 1.6 g/dL (3.2-5.0); BUN 153 mg/dL (7-18); BUN/Creat Ratio 28.5 RATIO (10-20); Calcium,Total 7.4 mg/dL (8.5-10.1); Chloride 95 mmol/L (98-107); Creatinine, Serum 5.36 mg/dL (0.70-1.30); EST Glomerular Filtration Rate 11 mL/min (>60); Est Glom Filt Rate - Afr Amer 14 mL/min (>60); Estimated Creatinine Clearance 14.48 ml/min; Glucose 118 mg/dL (74-106); Phosphorus 12.5 mg/dL (2.5-4.9); Potassium 6.7 mmol/L (3.5-5.1); Sodium Level 133 mmol/L (136-145)
--- NOTE | 2020-05-10 07:11 | PCM.PN.INT ---
Subjective: Patient did okay overnight. Patient did have significant tachypnea with agitation, so a spontaneous breathing trial was not obtained. Patient has been saturating well on 8 of PEEP and 45%. Patient will open his eyes to voice, but is not following commands. General: No apparent distress - Fair vent synchrony, - - RASS -1. Morbidly obese. Anasarca. HEENT: Atraumatic, PERRLA, EOMI, Normocephalic, - - Scleral edema and injection noted Oral: Moist Mucosa, No Gingival or Mucosal Lesions/ Ulcerations Neck: Supple, No Nodes, Trachea Midline, - - Lines are clean, dry and intact Lungs: No rhonchi, No wheeze, Diminished, Rales, - - Symmetric expansion Cardiovascular: Normal S1, Normal S2, No murmurs, No rub noted, No Gallop, Tachycardic Abdomen: Bowel Sounds Present, Soft, Non Tender, Non-Distended, Obese Extremities: No cyanosis, Edema Skin: - - Mottling improved on lower extremities Musculoskeletal: No Tenderness to Palpation of Joints or Extremities Lymphatic: No Cervical, Supraclavicular, or Inguinal Adenopathy Neurological: Cranial nerves II-XII grossly intact, Neuro grossly intact Psych/Mental Status: Flat Affect, Restless Vital Signs Temp Pulse Resp BP Pulse Ox 37.5 C H 98 35 H 97/49 L 93 05/10/20 06:00 05/10/20 06:00 05/10/20 06:00 05/10/20 06:00 05/10/20 06:00 Oxygen Flow Rate (L/min) 60 Oxygen Delivery Method Mechanical Ventilator Weight: 167 kg Body Mass Index (BMI) 49.0 Intake and Output for Last 24 Hours 05/08/20 05/09/20 05/10/20 23:59 23:59 23:59 Intake Total 3408.93 / 3416.38 2743.91 / 2761.41 839.46 / 839.46 Output Total 170 / 170 190 / 190 80 / 80 Balance 3238.93 / 3246.38 2553.91 / 2571.41 759.46 / 759.46 Labs (Last 48 Hours) 05/07/20 05/08/20 05/08/20 05:11 05:06 11:57 WBC RBC Hgb Hct MCV MCH MCHC RDW Std Deviation RDW Coeff of Citlaly Plt Count MPV Immature Gran % (Auto) Neut % (Auto) Lymph % (Auto) Williams % (Auto) Eos % (Auto) Baso % (Auto) Absolute Neuts (auto) Absolute Lymphs (auto) Nucleated RBC % Specimen Type Sample Site pH Bicarbonate Actual Total CO2 Base Excess O2 Saturation O2 % ABG pCO2 ABG pO2 Respiration Rate O2 Delivery Device Vent Mode Tidal Volume POC PEEP Sodium Potassium Chloride Carbon Dioxide Anion Gap BUN Creatinine Estim Creat Clear Calc Est GFR (MDRD) Af Amer Est GFR (MDRD) Non-Af BUN/Creatinine Ratio Glucose Calcium Phosphorus Magnesium Troponin I Albumin Hep B Core Total Ab Negative POC Glucose 111 H 146 H 05/08/20 05/08/20 05/08/20 17:38 22:30 22:53 WBC RBC Hgb Hct MCV MCH MCHC RDW Std Deviation RDW Coeff of Citlaly Plt Count MPV Immature Gran % (Auto) Neut % (Auto) Lymph % (Auto) Williams % (Auto) Eos % (Auto) Baso % (Auto) Absolute Neuts (auto) Absolute Lymphs (auto) Nucleated RBC % Specimen Type ART Sample Site L Radial pH 7.41 Bicarbonate Actual 24.0 Total CO2 25 Base Excess -1 O2 Saturation 95 O2 % 50 ABG pCO2 38.3 ABG pO2 73 L Respiration Rate 18 O2 Delivery Device Adult Vent Vent Mode AC Tidal Volume 500 POC PEEP 10 Sodium Potassium Chloride Carbon Dioxide Anion Gap BUN Creatinine Estim Creat Clear Calc Est GFR (MDRD) Af Amer Est GFR (MDRD) Non-Af BUN/Creatinine Ratio Glucose Calcium Phosphorus Magnesium Troponin I Albumin Hep B Core Total Ab POC Glucose 142 H 121 H 05/08/20 05/09/20 05/09/20 23:00 02:00 04:21 WBC RBC Hgb Hct MCV MCH MCHC RDW Std Deviation RDW Coeff of Citlaly Plt Count MPV Immature Gran % (Auto) Neut % (Auto) Lymph % (Auto) Williams % (Auto) Eos % (Auto) Baso % (Auto) Absolute Neuts (auto) Absolute Lymphs (auto) Nucleated RBC % Specimen Type Sample Site pH Bicarbonate Actual Total CO2 Base Excess O2 Saturation O2 % ABG pCO2 ABG pO2 Respiration Rate O2 Delivery Device Vent Mode Tidal Volume POC PEEP Sodium Potassium Chloride Carbon Dioxide Anion Gap BUN Creatinine Estim Creat Clear Calc Est GFR (MDRD) Af Amer Est GFR (MDRD) Non-Af BUN/Creatinine Ratio Glucose Calcium Phosphorus Magnesium Troponin I 0.367 H 0.377 H Albumin Hep B Core Total Ab POC Glucose 122 H 05/09/20 05/09/20 05/09/20 04:40 04:40 04:40 WBC 17.9 H RBC 4.00 L Hgb 11.0 L Hct 34.9 L MCV 87.3 MCH 27.5 MCHC 31.5 L RDW Std Deviation 48.0 H RDW Coeff of Citlaly 15.2 H Plt Count 231 MPV 11.5 Immature Gran % (Auto) 2.900 H Neut % (Auto) 80.5 H Lymph % (Auto) 7.4 L Williams % (Auto) 8.1 Eos % (Auto) 0.8 Baso % (Auto) 0.3 Absolute Neuts (auto) 14.4 H Absolute Lymphs (auto) 1.32 Nucleated RBC % 0.2 Specimen Type Sample Site pH Bicarbonate Actual Total CO2 Base Excess O2 Saturation O2 % ABG pCO2 ABG pO2 Respiration Rate O2 Delivery Device Vent Mode Tidal Volume POC PEEP Sodium 137 Potassium 5.7 H Chloride 101 Carbon Dioxide 25.0 Anion Gap 11 BUN 103 H* Creatinine 3.86 H Estim Creat Clear Calc 20.10 Est GFR (MDRD) Af Amer 20 L Est GFR (MDRD) Non-Af 17 L BUN/Creatinine Ratio 26.7 H Glucose 124 H Calcium 7.9 L Phosphorus 11.7 H* Magnesium 2.6 Troponin I 0.375 H Albumin Hep B Core Total Ab POC Glucose 05/09/20 05/09/20 05/09/20 12:25 18:17 20:16 WBC RBC Hgb Hct MCV MCH MCHC RDW Std Deviation RDW Coeff of Citlaly Plt Count MPV Immature Gran % (Auto) Neut % (Auto) Lymph % (Auto) Williams % (Auto) Eos % (Auto) Baso % (Auto) Absolute Neuts (auto) Absolute Lymphs (auto) Nucleated RBC % Specimen Type Sample Site pH Bicarbonate Actual Total CO2 Base Excess O2 Saturation O2 % ABG pCO2 ABG pO2 Respiration Rate O2 Delivery Device Vent Mode Tidal Volume POC PEEP Sodium Potassium Chloride Carbon Dioxide Anion Gap BUN Creatinine Estim Creat Clear Calc Est GFR (MDRD) Af Amer Est GFR (MDRD) Non-Af BUN/Creatinine Ratio Glucose Calcium Phosphorus Magnesium Troponin I Albumin Hep B Core Total Ab POC Glucose 144 H 109 109 05/09/20 05/10/20 05/10/20 23:41 04:58 05:00 WBC 12.7 H RBC 3.53 L Hgb 9.6 L Hct 29.6 L MCV 83.9 MCH 27.2 MCHC 32.4 RDW Std Deviation 45.1 H RDW Coeff of Citlaly 15.2 H Plt Count 203 MPV 11.6 Immature Gran % (Auto) 2.400 H Neut % (Auto) 83.8 H Lymph % (Auto) 5.3 L Williams % (Auto) 7.5 Eos % (Auto) 0.8 Baso % (Auto) 0.2 Absolute Neuts (auto) 10.7 H Absolute Lymphs (auto) 0.67 L Nucleated RBC % 0.2 Specimen Type Sample Site pH Bicarbonate Actual Total CO2 Base Excess O2 Saturation O2 % ABG pCO2 ABG pO2 Respiration Rate O2 Delivery Device Vent Mode Tidal Volume POC PEEP Sodium Potassium Chloride Carbon Dioxide Anion Gap BUN Creatinine Estim Creat Clear Calc Est GFR (MDRD) Af Amer Est GFR (MDRD) Non-Af BUN/Creatinine Ratio Glucose Calcium Phosphorus Magnesium Troponin I Albumin Hep B Core Total Ab POC Glucose 125 H 113 H 05/10/20 05:00 WBC RBC Hgb Hct MCV MCH MCHC RDW Std Deviation RDW Coeff of Citlaly Plt Count MPV Immature Gran % (Auto) Neut % (Auto) Lymph % (Auto) Williams % (Auto) Eos % (Auto) Baso % (Auto) Absolute Neuts (auto) Absolute Lymphs (auto) Nucleated RBC % Specimen Type Sample Site pH Bicarbonate Actual Total CO2 Base Excess O2 Saturation O2 % ABG pCO2 ABG pO2 Respiration Rate O2 Delivery Device Vent Mode Tidal Volume POC PEEP Sodium 133 L Potassium 6.7 H* Chloride 95 L Carbon Dioxide 22.0 Anion Gap BUN 153 H* Creatinine 5.36 H Estim Creat Clear Calc 14.48 Est GFR (MDRD) Af Amer 14 L Est GFR (MDRD) Non-Af 11 L BUN/Creatinine Ratio 28.5 H Glucose 118 H Calcium 7.4 L Phosphorus 12.5 H* Magnesium Troponin I Albumin 1.6 L Hep B Core Total Ab POC Glucose Medical Necessity - Tobacco Use Smoking Status: Never smoker Assessment/Plan All Active Problems Acute respiratory failure with hypoxia (Acute) COVID-19 (Acute) RECOMMENDATIONS: 1. Wean fentanyl as tolerated. Increase Seroquel and transition to Precedex 2. Dialysis per nephrology. Possibly change tube feeds 3. Wean FiO2 and PEEP as tolerated. Spontaneous breathing and awakening trials per protocol 4. Continue bowel regimen 5. Monitor off antimicrobials per ID recommendations. 6. Continue to hold Eliquis 7. Continue Decadron as ordered to complete treatment course. 8. Continue appropriate GI prophylaxis. IMPRESSIONS: 1. Acute hypoxemic respiratory failure secondary to ARDS due to COVID-19/MSSA pneumonia The patient was initially diagnosed 1 week prior to hospital admission. Although attempts were made to utilize high flow oxygen and noninvasive positive pressure ventilatory support, the patient continued to decompensate from a respiratory perspective, requiring transfer to ICU and subsequent intubation on April 29. The patient has gone on to develop fulminant ARDS with high ventilator requirements. The patient has completed a treatment course of remdesivir and will remain on Decadron per infectious disease. Patient appears to be doing okay from a respiratory standpoint. We will attempt to change sedation to facilitate spontaneous breathing and awakening trials. 2. ALBERTO on CKD/hyperkalemia Possibly prerenal in etiology. Patient continues to have decent urine output, but uremia and creatinine are significantly elevated. Patient also has hyperkalemia. Patient receiving hemodialysis now with a low potassium bath. EKG did not show any significant changes. Volume removal would be recommended. Okay with using pressors to facilitate volume removal. Given significant increase in uremia, will likely need to change tube feeds and hold on reinitiation of Eliquis. 3. Obesity/hypertension/hyperlipidemia/paroxysmal atrial fibrillation/coronary artery disease/GERD Complicates care, management, recovery and prognosis. Continue home medications as indicated. Discussed with family members about the severity of patient's prognosis. They understand and want to proceed in an aggressive fashion. 4. Hypertensive urgency Improved. Clinical suspicion for elevated blood pressure and respiratory rate secondary to agitation. Patient had significant uremia previously that likely led to an element of neurologic depression. Continue sedation TIME: 41 minutes of critical care time, independent of procedures, was spent addressing the patient's acute hypoxemic respiratory failure secondary to ARDS due to COVID-19 pneumonia, paroxysmal atrial fibrillation, coronary artery disease, ALBERTO, review of all data and collaboration with care team. (5:45 AM to 6:45 AM) [phone]: [id number] Critical care first hour
[2020-05-10] MEDS: Ipratropium/Albuterol Sulfate 3 ML AMPUL.NEB INHALATION ×3 (07:37→19:22)
[2020-05-10] MEDS: Chlorhexidine 15 ML PO ×2 (08:42→23:06)
[2020-05-10] MEDS: Propofol 10MG/Ml 1,000 MG/100 ML Bottle 15 MG CONT INF ×2 (09:00→14:00)
--- NOTE | 2020-05-10 09:48 | CM.UR ---
Participated in interdisciplinary rounds. was included via phone. Discussed changing tube feeding d/t changes in renal function. Currently getting dialysis. Discharge plan remains TBD. Benita Martel RN, CCM.
[2020-05-10] MEDS: Dexmedetomidine 1,000 mcg in 0.9% NS 240 mL 54.3 MCG CONT INF (10:00)
[2020-05-10 11:25] LABS: Bedside Glucose 110 mg/dL (70-110)
[2020-05-10] MEDS: Vital AF 1.2 Cal Liquid 1,000 ML 60 ML GT (13:08)
[2020-05-10] MEDS: Acetaminophen 650 MG/20 ML UDC GT (13:09)
[2020-05-10] MEDS: Polyethylene Glycol 3350 17 GM PACKET GT (13:13)
[2020-05-10] MEDS: Metoprolol Tartrate 50 MG Tablet GT ×2 (13:13→23:09)
[2020-05-10] MEDS: buPROPion 100 MG Tablet 150 MG PO ×2 (13:14→23:10)
[2020-05-10] MEDS: Senna/Docusate Sodium 1 Tablet 2 TABLET GT ×2 (13:14→23:11)
[2020-05-10] MEDS: QUEtiapine 25 MG Tablet 50 MG PO ×2 (13:14→23:11)
[2020-05-10] MEDS: dexAMETHasone 4 MG/ML Vial 6 MG IV (13:15)
[2020-05-10] MEDS: Aspirin 81 MG TAB.CHEW GT (13:15)
[2020-05-10] MEDS: Heparin 10,000 UNITS/10 ML Vial 2800 UNITS IV (13:23)
--- NOTE | 2020-05-10 13:57 | DIALYSIS ---
Hemodialysis tx ended 13 minutes early due to clotting of circuit. Fluid removed 2,000ml, after patient was started on Levophed to stabilize BP with UF. Pt O2 demands increased during tx as well and is currently on 70%. Verbal report given to ALFREDO Zayas post tx. Next dialysis tx 05/12/20 or per nephrology.
[2020-05-10] MEDS: Dexmedetomidine 1,000 mcg in 0.9% NS 240 mL 62.6 MCG CONT INF ×3 (15:00→23:20)
--- NOTE | 2020-05-10 15:18 | PCM.PROGNOTE ---
Patient Problems: Active and Suspected Problems Acute respiratory failure with hypoxia (Acute) COVID-19 (Acute) Subjective: Patient was seen and examined in the ICU today, he is now on pressors and undergoing dialysis. He is on a PEEP of 8. Patient is sedated on the ventilator at this time Objective: General: - - Patient is sedated on the ventilator HEENT: Atraumatic, PERRLA, Normocephalic Oral: Moist Mucosa Neck: Supple, No JVD, Trachea Midline, Thyroid Normal Size and Texture Lungs: Clear to auscultation, Normal air movement, No rhonchi, No wheeze, No rales Cardiovascular: Regular rate, Regular Rhythm, Normal S1, Normal S2, No murmurs, PMI Normal, No rub noted Abdomen: Bowel Sounds Present, Soft, Non Tender, Non-Distended, Obese Extremities: No clubbing, No cyanosis, No edema, Capillary Refill Less than 3 Seconds Skin: No rashes, No breakdown Musculoskeletal: No Tenderness to Palpation of Joints or Extremities Neurological: - - Patient is sedated and on the ventilator Psych/Mental Status: - - Patient is sedated and on the ventilator - Physical Exam Vitals/I&O's: Vital Signs Temp Pulse Resp BP Pulse Ox 100.9 F H 105 H 27 H 121/67 H 92 05/10/20 12:00 05/10/20 14:30 05/10/20 14:00 05/10/20 14:30 05/10/20 14:24 Oxygen Flow Rate (L/min) 60 Oxygen Delivery Method Mechanical Ventilator Weight: 167 kg Body Mass Index (BMI) 49.0 Intake and Output for Last 24 Hours 05/08/20 05/09/20 05/10/20 23:59 23:59 23:59 Intake Total 3408.93 / 3416.38 2743.91 / 2761.41 2554.02 / 2554.02 Output Total 170 / 170 190 / 190 2105 / 2105 Balance 3238.93 / 3246.38 2553.91 / 2571.41 449.02 / 449.02 Laboratory Results 05/09/20 18:17: POC Glucose 109 05/09/20 20:16: POC Glucose 109 05/09/20 23:41: POC Glucose 125 H 05/10/20 04:58: POC Glucose 113 H 05/10/20 05:00: WBC 12.7 H, RBC 3.53 L, Hgb 9.6 L, Hct 29.6 L, MCV 83.9, MCH 27.2, MCHC 32.4, RDW Std Deviation 45.1 H, RDW Coeff of Citlaly 15.2 H, Plt Count 203, MPV 11.6, Immature Gran % (Auto) 2.400 H, Neut % (Auto) 83.8 H, Lymph % (Auto) 5.3 L, [place] % (Auto) 7.5, Eos % (Auto) 0.8, Baso % (Auto) 0.2, Absolute Neuts (auto) 10.7 H, Absolute Lymphs (auto) 0.67 L, Nucleated RBC % 0.2 05/10/20 05:00: Sodium 133 L, Potassium 6.7 H*, Chloride 95 L, Carbon Dioxide 22.0, BUN 153 H*, Creatinine 5.36 H, Estim Creat Clear Calc 14.48, Est GFR (MDRD) Af Amer 14 L, Est GFR (MDRD) Non-Af 11 L, BUN/Creatinine Ratio 28.5 H, Glucose 118 H, Calcium 7.4 L, Phosphorus 12.5 H*, Albumin 1.6 L 05/10/20 11:11: POC Glucose 110 Current Medications Acetaminophen (Acetaminophen 650 Mg/20 Ml Udc) 650 mg GT Q6H PRN PRN PRN Reason: TEMP > 100 Last Admin: 05/10/20 13:09 Dose: 650 mg Documented by: Albuterol Sulfate (Albuterol Sulfate 18 Gm Inhaler (200 Puffs)) 2 puff IH Q4H PRN PRN PRN Reason: Shortness of breath, wheezing Last Admin: 04/27/20 01:30 Dose: 2 puff Documented by: Albuterol/Ipratropium (Ipratropium/Albuterol Sulfate 3 Ml Ampul.Neb) 3 ml INHALATION Q6HWA.RT [facility] Last Admin: 05/10/20 14:01 Dose: 3 ml Documented by: Aspirin (Aspirin 81 Mg Tab.Chew) 81 mg GT DAILY [facility] Last Admin: 05/10/20 13:15 Dose: 81 mg Documented by: Atorvastatin Calcium (Atorvastatin Calcium 40 Mg Tablet) 40 mg GT QHS [facility] Last Admin: 05/09/20 20:26 Dose: 40 mg Documented by: Bupropion HCl (Bupropion 100 Mg Tablet) 150 mg PO BID [facility] Last Admin: 05/10/20 13:14 Dose: 150 mg Documented by: Calamine/Phenol (Menthol/Lanolin/Calamine/Znox 113 Gm Tube) 1 applic TOPICAL TID [facility]; Protocol Last Admin: 05/10/20 13:31 Dose: 1 applicatio Documented by: Chlorhexidine Gluconate (Chlorhexidine 15 Ml) 15 ml PO BID [facility] Last Admin: 05/10/20 08:42 Dose: 15 ml Documented by: Dexamethasone Sodium Phosphate (Dexamethasone 4 Mg/Ml Vial) 6 mg IV QAM [facility] Stop: 05/15/20 10:01 Last Admin: 05/10/20 13:15 Dose: 6 mg Documented by: Hydralazine HCl (Hydralazine 20 Mg/Ml Vial) 10 mg IV Q4H PRN PRN PRN Reason: systolic >160 Last Admin: 05/10/20 00:38 Dose: 10 mg Documented by: Sodium Chloride () 250 mls @ 15 mls/hr IV .[id number] PRN PRN Reason: Saline Flush Last Infusion: 05/05/20 04:00 Dose: Infused Documented by: Sodium Chloride () 250 mls @ 15 mls/hr IV .[id number] PRN PRN Reason: Additional IVPB Infusion Pantoprazole Sodium 40 mg/ (Sodium Chloride) 110 mls @ 330 mls/hr IV Q12 [facility] Last Infusion: 05/10/20 11:05 Dose: Infused Documented by: Propofol (Diprivan) 1,000 mg in 100 mls @ 10.02 mls/hr CONT INF .[id number] [facility]; Protocol Last Titration: 05/10/20 14:30 Dose: 10 mcg/kg/min, 10 mls/hr Documented by: Fentanyl Citrate 1,000 mcg/ (Sodium Chloride) 100 mls @ 5 mls/hr CONT INF .Q20H [facility]; Protocol Last Titration: 05/10/20 14:00 Dose: 200 mcg/hr, 20 mls/hr Documented by: Dexmedetomidine HCl 1,000 mcg/ (Sodium Chloride) 250 mls @ 20.875 mls/hr CONT INF .[id number] [facility]; Protocol Last Titration: 05/10/20 14:00 Dose: 1.4 mcg/kg/hr, 58.5 mls/hr Documented by: Norepinephrine Bitartrate 8 mg (/ Sodium Chloride) 250 mls @ 9.375 mls/hr CONT INF .[id number] [facility]; Protocol Last Titration: 05/10/20 14:30 Dose: 20 mcg/min, 37.5 mls/hr Documented by: Enteral Nutritional Formula (Vital Af 1.2 [place] Liquid) 1,000 mls @ 60 mls/hr GT .[id number] [facility] Last Admin: 05/10/20 13:08 Dose: 60 mls/hr Documented by: Insulin Human Lispro (Insulin Lispro 100 Unit/Ml Insuln.Pen) 0 unit SC Q6 [facility]; Protocol Last Admin: 05/10/20 12:35 Dose: Not Given Documented by: Lorazepam (Lorazepam 2 Mg/Ml Syringe) 2 mg IV Q2H PRN PRN PRN Reason: AGITATION Last Admin: 05/08/20 19:46 Dose: 2 mg Documented by: Metoprolol Tartrate (Metoprolol Tartrate 50 Mg Tablet) 50 mg GT BID [facility] Last Admin: 05/10/20 13:13 Dose: 50 mg Documented by: Metoprolol Tartrate (Metoprolol Tartrate 5 Mg/5 Ml Vial) 5 mg IV Q4H PRN PRN Reason: systolic >160 Last Admin: 05/08/20 05:11 Dose: 5 mg Documented by: Miscellaneous Information (Inhaler, Assist Devices 1 Each Spacer) 1 each INHALATION PRN PRN PRN Reason: WITH ALBUTEROL MDI Last Admin: 04/27/20 16:41 Dose: 1 each Documented by: Multi-Ingredient Cream (Petrolatum,White 3.75gm Opth.Tube) 1 applic OPHTHALMIC TID@0600,1200,2200 [facility] Last Admin: 05/10/20 13:15 Dose: 1 applicatio Documented by: Ondansetron HCl (Ondansetron 4 Mg/2 Ml Vial) 4 mg IV Q8H PRN PRN PRN Reason: NAUSEA/VOMITING Last Admin: 05/08/20 22:47 Dose: 4 mg Documented by: Polyethylene Glycol (Polyethylene Glycol 3350 17 Gm Packet) 17 gm GT DAILY [facility] Last Admin: 05/10/20 13:13 Dose: 17 gm Documented by: Quetiapine Fumarate (Quetiapine 25 Mg Tablet) 50 mg PO BID [facility] Last Admin: 05/10/20 13:14 Dose: 50 mg Documented by: Senna/Docusate Sodium (Senna/Docusate Sodium 1 Tablet) 2 tablet GT BID [facility] Last Admin: 05/10/20 13:14 Dose: 2 tablet Documented by: Sodium Chloride (0.9% Saline Lock 10 Ml Syringe) 10 - 40 ml IV UD PRN PRN Reason: SALINE FLUSH Last Admin: 05/10/20 00:39 Dose: 10 ml Documented by: Medical Necessity - Tobacco Use Smoking Status: Never smoker Assessment/Plan All Active Problems Acute respiratory failure with hypoxia (Acute) COVID-19 (Acute) #1 COVID-19 pneumonia-patient completed his treatment for COVID-19 pneumonia #2 acute hypoxic respiratory failure secondary to #1-prognosis is guarded at this time, pulmonary medicine is managing his ventilator settings #3 coronary artery disease #4 essential hypertension #5 paroxysmal atrial fibrillation-patient is on Eliquis chronically #6 morbid obesity #7 Acute renal failure-nephrology is seeing patient, patient is undergoing dialysis #8 hyperkalemia-nephrology is addressing this #9 sputum culture positive for methicillin sensitive staph aureus-infectious diseases is participating in his care, it appears that the patient is off antibiotics at this time #10 hyperphosphatemia-patient on PhosLo #11 acute respiratory distress syndrome secondary to COVID-19 pneumonia-patient is currently on ventilator Inpatient E&M: [id number] [facility] L2
--- NOTE | 2020-05-10 15:47 | PCM.PN.REN ---
Patient Problems: Active and Suspected Problems Acute respiratory failure with hypoxia (Acute) COVID-19 (Acute) Subjective: no new events remains intubated - Physical Exam Vitals/I&O's: Vital Signs Temp Pulse Resp BP Pulse Ox 100.9 F H 104 H 27 H 121/67 H 92 05/10/20 12:00 05/10/20 15:39 05/10/20 14:00 05/10/20 14:30 05/10/20 14:24 Oxygen Flow Rate (L/min) 60 Oxygen Delivery Method Mechanical Ventilator Weight: 167 kg Body Mass Index (BMI) 49.0 Intake and Output for Last 24 Hours 05/08/20 05/09/20 05/10/20 23:59 23:59 23:59 Intake Total 3408.93 / 3416.38 2743.91 / 2761.41 2587.55 / 2587.55 Output Total 170 / 170 190 / 190 2105 / 2105 Balance 3238.93 / 3246.38 2553.91 / 2571.41 482.55 / 482.55 Comment: exam minimized due to covid, intubated Laboratory Results 05/09/20 18:17: POC Glucose 109 05/09/20 20:16: POC Glucose 109 05/09/20 23:41: POC Glucose 125 H 05/10/20 04:58: POC Glucose 113 H 05/10/20 05:00: WBC 12.7 H, RBC 3.53 L, Hgb 9.6 L, Hct 29.6 L, MCV 83.9, MCH 27.2, MCHC 32.4, RDW Std Deviation 45.1 H, RDW Coeff of Citlaly 15.2 H, Plt Count 203, MPV 11.6, Immature Gran % (Auto) 2.400 H, Neut % (Auto) 83.8 H, Lymph % (Auto) 5.3 L, [place] % (Auto) 7.5, Eos % (Auto) 0.8, Baso % (Auto) 0.2, Absolute Neuts (auto) 10.7 H, Absolute Lymphs (auto) 0.67 L, Nucleated RBC % 0.2 05/10/20 05:00: Sodium 133 L, Potassium 6.7 H*, Chloride 95 L, Carbon Dioxide 22.0, BUN 153 H*, Creatinine 5.36 H, Estim Creat Clear Calc 14.48, Est GFR (MDRD) Af Amer 14 L, Est GFR (MDRD) Non-Af 11 L, BUN/Creatinine Ratio 28.5 H, Glucose 118 H, Calcium 7.4 L, Phosphorus 12.5 H*, Albumin 1.6 L 05/10/20 11:11: POC Glucose 110 Current Medications Acetaminophen (Acetaminophen 650 Mg/20 Ml Udc) 650 mg GT Q6H PRN PRN PRN Reason: TEMP > 100 Last Admin: 05/10/20 13:09 Dose: 650 mg Documented by: Albuterol Sulfate (Albuterol Sulfate 18 Gm Inhaler (200 Puffs)) 2 puff IH Q4H PRN PRN PRN Reason: Shortness of breath, wheezing Last Admin: 04/27/20 01:30 Dose: 2 puff Documented by: Albuterol/Ipratropium (Ipratropium/Albuterol Sulfate 3 Ml Ampul.Neb) 3 ml INHALATION Q6HWA.RT [facility] Last Admin: 05/10/20 14:01 Dose: 3 ml Documented by: Aspirin (Aspirin 81 Mg Tab.Chew) 81 mg GT DAILY [facility] Last Admin: 05/10/20 13:15 Dose: 81 mg Documented by: Atorvastatin Calcium (Atorvastatin Calcium 40 Mg Tablet) 40 mg GT QHS [facility] Last Admin: 05/09/20 20:26 Dose: 40 mg Documented by: Bupropion HCl (Bupropion 100 Mg Tablet) 150 mg PO BID [facility] Last Admin: 05/10/20 13:14 Dose: 150 mg Documented by: Calamine/Phenol (Menthol/Lanolin/Calamine/Znox 113 Gm Tube) 1 applic TOPICAL TID [facility]; Protocol Last Admin: 05/10/20 13:31 Dose: 1 applicatio Documented by: Chlorhexidine Gluconate (Chlorhexidine 15 Ml) 15 ml PO BID [facility] Last Admin: 05/10/20 08:42 Dose: 15 ml Documented by: Dexamethasone Sodium Phosphate (Dexamethasone 4 Mg/Ml Vial) 6 mg IV QAM [facility] Stop: 05/15/20 10:01 Last Admin: 05/10/20 13:15 Dose: 6 mg Documented by: Hydralazine HCl (Hydralazine 20 Mg/Ml Vial) 10 mg IV Q4H PRN PRN PRN Reason: systolic >160 Last Admin: 05/10/20 00:38 Dose: 10 mg Documented by: Sodium Chloride () 250 mls @ 15 mls/hr IV .[id number] PRN PRN Reason: Saline Flush Last Infusion: 05/05/20 04:00 Dose: Infused Documented by: Sodium Chloride () 250 mls @ 15 mls/hr IV .[id number] PRN PRN Reason: Additional IVPB Infusion Pantoprazole Sodium 40 mg/ (Sodium Chloride) 110 mls @ 330 mls/hr IV Q12 [facility] Last Infusion: 05/10/20 11:05 Dose: Infused Documented by: Propofol (Diprivan) 1,000 mg in 100 mls @ 10.02 mls/hr CONT INF .[id number] [facility]; Protocol Last Titration: 05/10/20 14:30 Dose: 10 mcg/kg/min, 10 mls/hr Documented by: Fentanyl Citrate 1,000 mcg/ (Sodium Chloride) 100 mls @ 5 mls/hr CONT INF .Q20H [facility]; Protocol Last Admin: 05/10/20 15:00 Dose: 200 mcg/hr, 20 mls/hr Documented by: Dexmedetomidine HCl 1,000 mcg/ (Sodium Chloride) 250 mls @ 20.875 mls/hr CONT INF .[id number] [facility]; Protocol Last Admin: 05/10/20 15:00 Dose: 1.5 mcg/kg/hr, 62.6 mls/hr Documented by: Norepinephrine Bitartrate 8 mg (/ Sodium Chloride) 250 mls @ 9.375 mls/hr CONT INF .[id number] [facility]; Protocol Last Titration: 05/10/20 14:30 Dose: 20 mcg/min, 37.5 mls/hr Documented by: Enteral Nutritional Formula (Vital Af 1.2 M[place]hi Liquid) 1,000 mls @ 60 mls/hr GT .[id number] [facility] Last Admin: 05/10/20 13:08 Dose: 60 mls/hr Documented by: Insulin Human Lispro (Insulin Lispro 100 Unit/Ml Insuln.Pen) 0 unit SC Q6 [facility]; Protocol Last Admin: 05/10/20 12:35 Dose: Not Given Documented by: Lorazepam (Lorazepam 2 Mg/Ml Syringe) 2 mg IV Q2H PRN PRN PRN Reason: AGITATION Last Admin: 05/08/20 19:46 Dose: 2 mg Documented by: Metoprolol Tartrate (Metoprolol Tartrate 50 Mg Tablet) 50 mg GT BID [facility] Last Admin: 05/10/20 13:13 Dose: 50 mg Documented by: Metoprolol Tartrate (Metoprolol Tartrate 5 Mg/5 Ml Vial) 5 mg IV Q4H PRN PRN Reason: systolic >160 Last Admin: 05/08/20 05:11 Dose: 5 mg Documented by: Miscellaneous Information (Inhaler, Assist Devices 1 Each Spacer) 1 each INHALATION PRN PRN PRN Reason: WITH ALBUTEROL MDI Last Admin: 04/27/20 16:41 Dose: 1 each Documented by: Multi-Ingredient Cream (Petrolatum,White 3.75gm Opth.Tube) 1 applic OPHTHALMIC TID@0600,1200,2200 [facility] Last Admin: 05/10/20 13:15 Dose: 1 applicatio Documented by: Ondansetron HCl (Ondansetron 4 Mg/2 Ml Vial) 4 mg IV Q8H PRN PRN PRN Reason: NAUSEA/VOMITING Last Admin: 05/08/20 22:47 Dose: 4 mg Documented by: Polyethylene Glycol (Polyethylene Glycol 3350 17 Gm Packet) 17 gm GT DAILY [facility] Last Admin: 05/10/20 13:13 Dose: 17 gm Documented by: Quetiapine Fumarate (Quetiapine 25 Mg Tablet) 50 mg PO BID [facility] Last Admin: 05/10/20 13:14 Dose: 50 mg Documented by: Senna/Docusate Sodium (Senna/Docusate Sodium 1 Tablet) 2 tablet GT BID [facility] Last Admin: 05/10/20 13:14 Dose: 2 tablet Documented by: Sodium Chloride (0.9% Saline Lock 10 Ml Syringe) 10 - 40 ml IV UD PRN PRN Reason: SALINE FLUSH Last Admin: 05/10/20 00:39 Dose: 10 ml Documented by: Medical Necessity - Tobacco Use Smoking Status: Never smoker Assessment/Plan All Active Problems Acute respiratory failure with hypoxia (Acute) COVID-19 (Acute) 1. Acute kidney injury. Baseline creatinine is 1.2 to 1.3 mg/dL. ALBERTO is secondary to ischemic ATN. 2. Hyperkalemia. 3. Acute hypoxic respiratory failure. The patient is ventilator dependent. He is being treated for Covid 19 pneumonia along with bacterial pneumonia. Ventilator management is as per pulmonary/critical care medicine service. Plan remains intubated HD today, able to get some fluid off HD on 1K bath for 2 hours and 2 K bath after Phosphate levels remain high. calcium acetate can not be crushed dw Dr Petersen
[2020-05-10 17:41] LABS: Bedside Glucose 85 mg/dL (70-110)
[2020-05-10] MEDS: Propofol 10MG/Ml 1,000 MG/100 ML Bottle 10 MG CONT INF (19:45)
--- NOTE | 2020-05-10 19:49 | CPS ---
per RN pt popped off the vent more than once - where ET tube meets vent tubing. Pt sats in low 80's and taking a long time to recover. FiO2 increased to 100% PEEP increased to 12. Cleaning and re-taping tube to make secure.
--- NOTE | 2020-05-10 20:20 | RAD_ITS ---
STUDY: X-RAY CHEST REASON FOR EXAM: Male, 69 years old. COVID POSITIVE. VENT CHANGES. TECHNIQUE: Frontal view COMPARISON: 05/08/2020 FINDINGS: Endotracheal tube with tip 30 mm above the yisel. Nasogastric tube extends into the stomach. The lungs are not fully expanded. Bilateral patchy infiltrates. Normal size heart. Normal mediastinum and katie. Normal visualized pulmonary arteries. Normal visualized aortic arch and descending thoracic aorta. Normal visualized thoracic spine. Normal visualized ribs, clavicles, and shoulders. There is no demonstrated abnormality of the visualized soft tissue structures of the upper abdomen. RAD/Chest 1 View (Portable) IMPRESSION: Bilateral patchy infiltrates. Electronically Signed: Ignacio Houston DO at 21:33 EST Tel [phone], Service support ,
[2020-05-10 20:30] LABS: Allen Test Positive; Base Excess -2 mmol/L (-2 to +2); Bicarbonate 24.4 mmol/L (22-26); Blood Gas Specimen Type ART; FI02 100; Mode AC; O2 Delivery Device Adult Vent; PEEP 12; PO2 78 mmHG (75-100); RR 16; SITE R Radial; SO2 94 % (95-99); Total Carbon Dioxide 26 mmol/L; Vt 500; pCO2 46.2 mmHg (35-45); pH 7.33 (7.35-7.45)
--- NOTE | 2020-05-10 20:57 | CT_ITS ---
STUDY: CT BRAIN WITHOUT CONTRAST REASON FOR EXAM: Male, 69 years old. NEURO CHANGES/PRIOR CVA 2016. Hx of covid, acute renal failuyre, HTN, CAD/CABG RADIATION DOSAGE (If Supplied By Facility): CTDIvol = ( 44.99 ) mGy, DLP = ( 880.47 ) mGycm TECHNIQUE: Transaxial CT imaging of the brain was performed without administration of intravenous contrast material. Individualized dose optimization techniques were used for this CT. COMPARISON: 11/22/2019 FINDINGS: Normal soft tissue structures. Normal calvarium. Normal size ventricles and extra-axial spaces for the patient''s age. Normal white matter tracts of the cerebral hemispheres. Normal basal ganglia and thalami. Normal brainstem. Normal cerebellum. There is no intracranial hemorrhage. There are no findings of an acute ischemic infarction. Mild mucosal thickening of the paranasal sinuses. CT/Brain/Head without Contrast IMPRESSION: No acute intracranial pathology of the brain. Paranasal sinus disease. Electronically Signed: Ignacio Houston DO at 23:23 EST Tel [phone], Service support ,
[2020-05-10] MEDS: Atorvastatin Calcium 40 MG Tablet GT (23:10)
[2020-05-10 23:41] LABS: Bedside Glucose 87 mg/dL (70-110)
[2020-05-11] VITALS (45 sets, daily range): BP systolic 101–169; BP diastolic 41–78; PULSE 76–122; RESP 16–39; TEMP 37.2–37.8; O2SAT 82–97
--- NOTE | 2020-05-11 03:00 | CPS ---
Pt ET tube keeps popping off adapter. Condensation in tubing and humidity turned down. Q-tips inserted to dry ET tube. Benzoine Tincture applied right inside ET tube and on adapter. New adapter and in line suction added. Tube taped to secure. Pt tolerated well and has not popped off since.
[2020-05-11] MEDS: Dexmedetomidine 1,000 mcg in 0.9% NS 240 mL 62.6 MCG CONT INF (03:54)
[2020-05-11 04:02] LABS: Absolute Lymphocyte Count 0.53 X10^3/uL (0.83-4.51); Absolute Neutrophil Count 12.3 X10^3/uL (2.0-7.7); Basophil# 0.02 X10^3/uL; Basophil% 0.1 % (0-1); Eosinophil# 0.01 X10^3/uL; Eosinophils% 0.1 % (0-5); Hemoglobin 9.1 g/dL (13.0-16.5); Lymphocyte # 0.53 X10^3/ul (4.0); Lymphocyte % 3.9 % (19-41); Mean Corp Hgb Conc 32.5 g/dL (32-36); Mean Corpuscular Hgb 27.6 pg (27.0-32.0); Mean Corpuscular Volume 84.8 fL (80-94); Mean Platelet Vol. 11.9 fl (6.2-12.0); Monocyte# 0.53 X10^3/uL; Monocyte% 3.9 % (0-10); NRBC Flagged by Analyzer 0.1 % (0-5); Neutrophil # 12.34 X10^3/uL (2.7-7.7); Neutrophil % 91.2 % (47-70); POSITIVE DIFFERENTIAL YES; Platelet Count 165 K/mm3 (150-450); RBC Distribution Width CV 15.1 % (11.6-14.6); RBC Distribution Width SD 45.5 fl (35.1-43.9); White Blood Count 13.5 K/mm3 (4.4-11.0)
[2020-05-11 04:05] LABS: Differential Indicated SCAN CRITERIA MET
[2020-05-11 04:34] LABS: Anion Gap 13 (5-15); BUN 112 mg/dL (7-18); BUN/Creat Ratio 24.9 RATIO (10-20); Calcium,Total 7.3 mg/dL (8.5-10.1); Chloride 95 mmol/L (98-107); EST Glomerular Filtration Rate 14 mL/min (>60); Est Glom Filt Rate - Afr Amer 17 mL/min (>60); Estimated Creatinine Clearance 17.24 ml/min; Glucose 113 mg/dL (74-106); Phosphorus 11.1 mg/dL (2.5-4.9); Sodium Level 132 mmol/L (136-145)
[2020-05-11] MEDS: Menthol/Lanolin/Calamine/Znox 113 GM Tube 1 APPLIC TOPICAL ×3 (05:30→21:04)
[2020-05-11] MEDS: Petrolatum,White 3.75GM OPTH.TUBE 1 APPLIC OPHTHALMIC ×3 (05:31→21:05)
[2020-05-11 05:50] LABS: Bedside Glucose 124 mg/dL (70-110)
[2020-05-11] MEDS: guaiFENesin 10 ML UDC (200MG/10ML) GT ×5 (06:23→21:11)
[2020-05-11] MEDS: Ipratropium/Albuterol Sulfate 3 ML AMPUL.NEB INHALATION ×3 (06:42→19:14)
--- NOTE | 2020-05-11 07:20 | PCM.PN.INT ---
Subjective: Overnight events reviewed. Patient had acute worsening in oxygenation requiring increased PEEP and FiO2. Patient also had a decrease and reflexes. Chest x-ray and ABG were relatively unremarkable. Given change in reflexes, a CT of the head was obtained. Following CT of the head, oxygenation started to improve. No bleeds or strokes were noted. Propofol and Levophed are currently off. General: - - Intubated and sedated. RASS -2. Morbidly obese. Anasarca. HEENT: Atraumatic, PERRLA, EOMI, Normocephalic, - - No scleral icterus or injection noted Oral: Moist Mucosa, No Gingival or Mucosal Lesions/ Ulcerations Neck: Supple, No Nodes, Trachea Midline, - - Lines are clean, dry and intact Lungs: No rhonchi, No wheeze, No rales, Diminished, - - Symmetric expansion. No dullness to percussion Cardiovascular: Regular rate, Regular Rhythm, Normal S1, Normal S2, No murmurs, No rub noted, No Gallop Abdomen: Bowel Sounds Present, Soft, Non Tender, Non-Distended, Obese Extremities: No clubbing, No cyanosis, Edema Skin: - - Mottling resolved Musculoskeletal: No Tenderness to Palpation of Joints or Extremities Lymphatic: No Cervical, Supraclavicular, or Inguinal Adenopathy Neurological: - - Unchanged from previous Psych/Mental Status: Flat Affect Vital Signs Temp Pulse Resp BP Pulse Ox 37.7 C H 87 29 H 115/50 L 95 05/11/20 06:00 05/11/20 06:44 05/11/20 06:44 05/11/20 06:00 05/11/20 06:44 Oxygen Flow Rate (L/min) 60 Oxygen Delivery Method Mechanical Ventilator Weight: 168.1 kg Body Mass Index (BMI) 49.0 Intake and Output for Last 24 Hours 05/09/20 05/10/20 05/11/20 23:59 23:59 23:59 Intake Total 2743.91 / 2761.41 4186.98 / 4367.51 1505.30 / 1505.30 Output Total 190 / 190 2120 / 2120 35 / 35 Balance 2553.91 / 2571.41 2066.98 / 2247.51 1470.30 / 1470.30 Labs (Last 48 Hours) 05/08/20 05/09/20 05/09/20 22:53 04:21 12:25 WBC RBC Hgb Hct MCV MCH MCHC RDW Std Deviation RDW Coeff of Citlaly Plt Count MPV Immature Gran % (Auto) Neut % (Auto) Lymph % (Auto) [place] % (Auto) Eos % (Auto) Baso % (Auto) Absolute Neuts (auto) Absolute Lymphs (auto) Nucleated RBC % Specimen Type Sample Site pH Bicarbonate Actual Total CO2 Base Excess O2 Saturation O2 % ABG pCO2 ABG pO2 Philip Test Respiration Rate O2 Delivery Device Vent Mode Tidal Volume POC PEEP Sodium Potassium Chloride Carbon Dioxide Anion Gap BUN Creatinine Estim Creat Clear Calc Est GFR (MDRD) Af Amer Est GFR (MDRD) Non-Af BUN/Creatinine Ratio Glucose Calcium Phosphorus Magnesium Albumin POC Glucose 121 H 122 H 144 H 05/09/20 05/09/20 05/09/20 18:17 20:16 23:41 WBC RBC Hgb Hct MCV MCH MCHC RDW Std Deviation RDW Coeff of Citlaly Plt Count MPV Immature Gran % (Auto) Neut % (Auto) Lymph % (Auto) [place] % (Auto) Eos % (Auto) Baso % (Auto) Absolute Neuts (auto) Absolute Lymphs (auto) Nucleated RBC % Specimen Type Sample Site pH Bicarbonate Actual Total CO2 Base Excess O2 Saturation O2 % ABG pCO2 ABG pO2 Philip Test Respiration Rate O2 Delivery Device Vent Mode Tidal Volume POC PEEP Sodium Potassium Chloride Carbon Dioxide Anion Gap BUN Creatinine Estim Creat Clear Calc Est GFR (MDRD) Af Amer Est GFR (MDRD) Non-Af BUN/Creatinine Ratio Glucose Calcium Phosphorus Magnesium Albumin POC Glucose 109 109 125 H 05/10/20 05/10/20 05/10/20 04:58 05:00 05:00 WBC 12.7 H RBC 3.53 L Hgb 9.6 L Hct 29.6 L MCV 83.9 MCH 27.2 MCHC 32.4 RDW Std Deviation 45.1 H RDW Coeff of Citlaly 15.2 H Plt Count 203 MPV 11.6 Immature Gran % (Auto) 2.400 H Neut % (Auto) 83.8 H Lymph % (Auto) 5.3 L [place] % (Auto) 7.5 Eos % (Auto) 0.8 Baso % (Auto) 0.2 Absolute Neuts (auto) 10.7 H Absolute Lymphs (auto) 0.67 L Nucleated RBC % 0.2 Specimen Type Sample Site pH Bicarbonate Actual Total CO2 Base Excess O2 Saturation O2 % ABG pCO2 ABG pO2 Philip Test Respiration Rate O2 Delivery Device Vent Mode Tidal Volume POC PEEP Sodium 133 L Potassium 6.7 H* Chloride 95 L Carbon Dioxide 22.0 Anion Gap BUN 153 H* Creatinine 5.36 H Estim Creat Clear Calc 14.48 Est GFR (MDRD) Af Amer 14 L Est GFR (MDRD) Non-Af 11 L BUN/Creatinine Ratio 28.5 H Glucose 118 H Calcium 7.4 L Phosphorus 12.5 H* Magnesium Albumin 1.6 L POC Glucose 113 H 05/10/20 05/10/20 05/10/20 11:11 17:10 20:20 WBC RBC Hgb Hct MCV MCH MCHC RDW Std Deviation RDW Coeff of Citlaly Plt Count MPV Immature Gran % (Auto) Neut % (Auto) Lymph % (Auto) [place] % (Auto) Eos % (Auto) Baso % (Auto) Absolute Neuts (auto) Absolute Lymphs (auto) Nucleated RBC % Specimen Type ART Sample Site R Radial pH 7.33 L Bicarbonate Actual 24.4 Total CO2 26 Base Excess -2 O2 Saturation 94 L O2 % 100 ABG pCO2 46.2 H ABG pO2 78 Philip Test Positive Respiration Rate 16 O2 Delivery Device Adult Vent Vent Mode AC Tidal Volume 500 POC PEEP 12 Sodium Potassium Chloride Carbon Dioxide Anion Gap BUN Creatinine Estim Creat Clear Calc Est GFR (MDRD) Af Amer Est GFR (MDRD) Non-Af BUN/Creatinine Ratio Glucose Calcium Phosphorus Magnesium Albumin POC Glucose 110 85 05/10/20 05/11/20 05/11/20 23:28 03:40 03:40 WBC 13.5 H RBC 3.30 L Hgb 9.1 L Hct 28.0 L MCV 84.8 MCH 27.6 MCHC 32.5 RDW Std Deviation 45.5 H RDW Coeff of Citlaly 15.1 H Plt Count 165 MPV 11.9 Immature Gran % (Auto) 0.800 Neut % (Auto) 91.2 H Lymph % (Auto) 3.9 L [place] % (Auto) 3.9 Eos % (Auto) 0.1 Baso % (Auto) 0.1 Absolute Neuts (auto) 12.3 H Absolute Lymphs (auto) 0.53 L Nucleated RBC % 0.1 Specimen Type Sample Site pH Bicarbonate Actual Total CO2 Base Excess O2 Saturation O2 % ABG pCO2 ABG pO2 Philip Test Respiration Rate O2 Delivery Device Vent Mode Tidal Volume POC PEEP Sodium 132 L Potassium 7.0 H* Chloride 95 L Carbon Dioxide 24.0 Anion Gap 13 BUN 112 H* Creatinine 4.50 H Estim Creat Clear Calc 17.24 Est GFR (MDRD) Af Amer 17 L Est GFR (MDRD) Non-Af 14 L BUN/Creatinine Ratio 24.9 H Glucose 113 H Calcium 7.3 L Phosphorus 11.1 H* Magnesium 2.0 Albumin POC Glucose 87 05/11/20 05:30 WBC RBC Hgb Hct MCV MCH MCHC RDW Std Deviation RDW Coeff of Citlaly Plt Count MPV Immature Gran % (Auto) Neut % (Auto) Lymph % (Auto) [place] % (Auto) Eos % (Auto) Baso % (Auto) Absolute Neuts (auto) Absolute Lymphs (auto) Nucleated RBC % Specimen Type Sample Site pH Bicarbonate Actual Total CO2 Base Excess O2 Saturation O2 % ABG pCO2 ABG pO2 Philip Test Respiration Rate O2 Delivery Device Vent Mode Tidal Volume POC PEEP Sodium Potassium Chloride Carbon Dioxide Anion Gap BUN Creatinine Estim Creat Clear Calc Est GFR (MDRD) Af Amer Est GFR (MDRD) Non-Af BUN/Creatinine Ratio Glucose Calcium Phosphorus Magnesium Albumin POC Glucose 124 H Clinical Impression(s) from Imaging Studies Chest X-Ray 05/10/20 20:20 IMPRESSION: Bilateral patchy infiltrates. Electronically Signed: Ignacio Houston DO at 21:33 EST Tel [phone], Service support , Brain CT 05/10/20 20:57 IMPRESSION: No acute intracranial pathology of the brain. Paranasal sinus disease. Electronically Signed: Ignacio Houston DO at 23:23 EST Tel [phone], Service support , Medical Necessity - Tobacco Use Smoking Status: Never smoker Assessment/Plan All Active Problems Acute respiratory failure with hypoxia (Acute) COVID-19 (Acute) RECOMMENDATIONS: 1. Wean fentanyl as tolerated. Continue Seroquel and Precedex 2. Dialysis per nephrology. Possibly transition to nephro tomorrow 3. Wean FiO2 and PEEP as tolerated. Spontaneous breathing and awakening trials per protocol 4. Continue bowel regimen 5. Monitor off antimicrobials per ID recommendations. 6. Reinitiate Eliquis therapy 7. Continue Decadron as ordered to complete treatment course. 8. Continue appropriate GI prophylaxis. IMPRESSIONS: 1. Acute hypoxemic respiratory failure secondary to ARDS due to COVID-19/MSSA pneumonia The patient was initially diagnosed 1 week prior to hospital admission. Although attempts were made to utilize high flow oxygen and noninvasive positive pressure ventilatory support, the patient continued to decompensate from a respiratory perspective, requiring transfer to ICU and subsequent intubation on April 29. The patient has gone on to develop fulminant ARDS with high ventilator requirements. The patient has completed a treatment course of remdesivir and will remain on Decadron per infectious disease. Patient with acute decompensation in oxygenation overnight. Clinical suspicion for mucous plugging, so mucolytic was added. Continue to wean FiO2 and PEEP as tolerated. Spontaneous breathing and awakening trials per protocol. 2. ALBERTO on CKD/hyperkalemia Possibly prerenal in etiology. Patient continues to have decent urine output, but uremia and creatinine are significantly elevated. Patient also has hyperkalemia. Patient receiving hemodialysis now with a low potassium bath. EKG did not show any significant changes. Volume removal would be recommended. Okay with using pressors to facilitate volume removal. Given change in neuro status, Eliquis will be reinitiated. Patient did require pressor therapy to facilitate volume removal, but 2 L were removed yesterday. 3. Obesity/hypertension/hyperlipidemia/paroxysmal atrial fibrillation/coronary artery disease/GERD Complicates care, management, recovery and prognosis. Continue home medications as indicated. Discussed with family members about the severity of patient's prognosis. They understand and want to proceed in an aggressive fashion. 4. Hypertensive urgency Improved. Clinical suspicion for elevated blood pressure and respiratory rate secondary to agitation. Patient had significant uremia previously that likely led to an element of neurologic depression. Continue sedation TIME: 34 minutes of critical care time, independent of procedures, was spent addressing the patient's acute hypoxemic respiratory failure secondary to ARDS due to COVID-19 pneumonia, paroxysmal atrial fibrillation, coronary artery disease, ALBERTO, review of all data and collaboration with care team. (5:30 AM to 6:30 AM) [id number] Critical care first hour
[2020-05-11] MEDS: Dexmedetomidine 1,000 mcg in 0.9% NS 240 mL 63 MCG CONT INF ×4 (07:30→20:08)
[2020-05-11] MEDS: QUEtiapine 25 MG Tablet 50 MG PO ×2 (09:15→21:09)
[2020-05-11] MEDS: APIXABAN 5 MG TABLET GT ×2 (09:15→21:05)
[2020-05-11] MEDS: buPROPion 100 MG Tablet 150 MG PO ×2 (09:15→21:10)
[2020-05-11] MEDS: Aspirin 81 MG TAB.CHEW GT (09:15)
[2020-05-11] MEDS: dexAMETHasone 4 MG/ML Vial 6 MG IV (09:15)
[2020-05-11] MEDS: Metoprolol Tartrate 50 MG Tablet GT ×2 (09:17→21:06)
[2020-05-11] MEDS: Chlorhexidine 15 ML PO ×2 (09:18→21:04)
[2020-05-11] MEDS: 0.9% Saline Lock 10 ML Syringe IV (09:22)
[2020-05-11] MEDS: NEPRO TUBE FEED 1,000 ML 40 ML GT (11:18)
[2020-05-11 11:40] LABS: Bedside Glucose 105 mg/dL (70-110)
--- NOTE | 2020-05-11 14:09 | PCM.PROGNOTE ---
Patient Problems: Active and Suspected Problems Acute respiratory failure with hypoxia (Acute) COVID-19 (Acute) Subjective: Patient was seen and examined today, I discussed his care with pulmonary medicine today, he is being dialyzed today, he still remains under sedation on the ventilator. Objective: General: - - Patient is sedated on the ventilator HEENT: Atraumatic, PERRLA, Normocephalic Oral: Moist Mucosa Neck: Supple, No JVD, Trachea Midline, Thyroid Normal Size and Texture Lungs: Clear to auscultation, Normal air movement, No rhonchi, No wheeze, No rales Cardiovascular: Regular rate, Regular Rhythm, Normal S1, Normal S2, No murmurs, PMI Normal, No rub noted Abdomen: Bowel Sounds Present, Soft, Non Tender, Non-Distended, Obese Extremities: No clubbing, No cyanosis, No edema, Capillary Refill Less than 3 Seconds Skin: No rashes, No breakdown Musculoskeletal: No Tenderness to Palpation of Joints or Extremities Neurological: - - Patient is sedated and on the ventilator Psych/Mental Status: - - Patient is sedated and on the ventilator - Physical Exam Vitals/I&O's: Vital Signs Temp Pulse Resp BP Pulse Ox 99.2 F H 83 27 H 132/47 H 94 05/11/20 12:00 05/11/20 13:00 05/11/20 13:00 05/11/20 13:00 05/11/20 13:00 Oxygen Flow Rate (L/min) 60 Oxygen Delivery Method Mechanical Ventilator Weight: 168.1 kg Body Mass Index (BMI) 49.0 Intake and Output for Last 24 Hours 05/09/20 05/10/20 05/11/20 23:59 23:59 23:59 Intake Total 2743.91 / 2761.41 4186.98 / 4367.51 2817.55 / 2817.55 Output Total 190 / 190 2120 / 2120 235 / 235 Balance 2553.91 / 2571.41 2066.98 / 2247.51 2582.55 / 2582.55 Laboratory Results 05/10/20 17:10: POC Glucose 85 05/10/20 20:20: Specimen Type ART, Sample Site R Radial, pH 7.33 L, Bicarbonate Actual 24.4, Total CO2 26, Base Excess -2, O2 Saturation 94 L, O2 % 100, ABG pCO2 46.2 H, ABG pO2 78, Philip Test Positive, Respiration Rate 16, O2 Delivery Device Adult Vent, Vent Mode AC, Tidal Volume 500, POC PEEP 12 05/10/20 23:28: POC Glucose 87 05/11/20 03:40: WBC 13.5 H, RBC 3.30 L, Hgb 9.1 L, Hct 28.0 L, MCV 84.8, MCH 27.6, MCHC 32.5, RDW Std Deviation 45.5 H, RDW Coeff of Citlaly 15.1 H, Plt Count 165, MPV 11.9, Immature Gran % (Auto) 0.800, Neut % (Auto) 91.2 H, Lymph % (Auto) 3.9 L, Frederick % (Auto) 3.9, Eos % (Auto) 0.1, Baso % (Auto) 0.1, Absolute Neuts (auto) 12.3 H, Absolute Lymphs (auto) 0.53 L, Nucleated RBC % 0.1 05/11/20 03:40: Sodium 132 L, Potassium 7.0 H*, Chloride 95 L, Carbon Dioxide 24.0, Anion Gap 13, BUN 112 H*, Creatinine 4.50 H, Estim Creat Clear Calc 17.24, Est GFR (MDRD) Af Amer 17 L, Est GFR (MDRD) Non-Af 14 L, BUN/Creatinine Ratio 24.9 H, Glucose 113 H, Calcium 7.3 L, Phosphorus 11.1 H*, Magnesium 2.0 05/11/20 05:30: POC Glucose 124 H 05/11/20 11:22: POC Glucose 105 Current Medications Acetaminophen (Acetaminophen 650 Mg/20 Ml Udc) 650 mg GT Q6H PRN PRN PRN Reason: TEMP > 100 Last Admin: 05/10/20 13:09 Dose: 650 mg Documented by: Albuterol Sulfate (Albuterol Sulfate 18 Gm Inhaler (200 Puffs)) 2 puff IH Q4H PRN PRN PRN Reason: Shortness of breath, wheezing Last Admin: 04/27/20 01:30 Dose: 2 puff Documented by: Albuterol/Ipratropium (Ipratropium/Albuterol Sulfate 3 Ml Ampul.Neb) 3 ml INHALATION Q6HWA.RT [facility] Last Admin: 05/11/20 06:42 Dose: 3 ml Documented by: Apixaban (Apixaban 5 Mg Tablet) 5 mg GT BID [facility] Last Admin: 05/11/20 09:15 Dose: 5 mg Documented by: Aspirin (Aspirin 81 Mg Tab.Chew) 81 mg GT DAILY [facility] Last Admin: 05/11/20 09:15 Dose: 81 mg Documented by: Atorvastatin Calcium (Atorvastatin Calcium 40 Mg Tablet) 40 mg GT QHS [facility] Last Admin: 05/10/20 23:10 Dose: 40 mg Documented by: Bupropion HCl (Bupropion 100 Mg Tablet) 150 mg PO BID [facility] Last Admin: 05/11/20 09:15 Dose: 150 mg Documented by: Calamine/Phenol (Menthol/Lanolin/Calamine/Znox 113 Gm Tube) 1 applic TOPICAL TID [facility]; Protocol Last Admin: 05/11/20 09:16 Dose: 1 applicatio Documented by: Chlorhexidine Gluconate (Chlorhexidine 15 Ml) 15 ml PO BID [facility] Last Admin: 05/11/20 09:18 Dose: 15 ml Documented by: Dexamethasone Sodium Phosphate (Dexamethasone 4 Mg/Ml Vial) 6 mg IV QAM [facility] Stop: 05/15/20 10:01 Last Admin: 05/11/20 09:15 Dose: 6 mg Documented by: Guaifenesin (Guaifenesin 10 Ml Udc (200mg/10ml)) 10 ml GT Q4 [facility] Last Admin: 05/11/20 09:15 Dose: 10 ml Documented by: Hydralazine HCl (Hydralazine 20 Mg/Ml Vial) 10 mg IV Q4H PRN PRN PRN Reason: systolic >160 Last Admin: 05/10/20 00:38 Dose: 10 mg Documented by: Sodium Chloride () 250 mls @ 15 mls/hr IV .[id number] PRN PRN Reason: Saline Flush Last Infusion: 05/05/20 04:00 Dose: Infused Documented by: Sodium Chloride () 250 mls @ 15 mls/hr IV .[id number] PRN PRN Reason: Additional IVPB Infusion Pantoprazole Sodium 40 mg/ (Sodium Chloride) 110 mls @ 330 mls/hr IV Q12 [facility] Last Infusion: 05/11/20 10:50 Dose: Infused Documented by: Propofol (Diprivan) 1,000 mg in 100 mls @ 10.086 mls/hr CONT INF .[id number] [facility]; Protocol Last Admin: 05/11/20 09:44 Dose: Not Given Documented by: Fentanyl Citrate 1,000 mcg/ (Sodium Chloride) 100 mls @ 5 mls/hr CONT INF .Q20H [facility]; Protocol Last Titration: 05/11/20 13:00 Dose: 200 mcg/hr, 20 mls/hr Documented by: Dexmedetomidine HCl 1,000 mcg/ (Sodium Chloride) 250 mls @ 21.013 mls/hr CONT INF .[id number] [facility]; Protocol Last Titration: 05/11/20 13:00 Dose: 1.5 mcg/kg/hr, 63 mls/hr Documented by: Norepinephrine Bitartrate 8 mg (/ Sodium Chloride) 250 mls @ 9.375 mls/hr CONT INF .[id number] [facility]; Protocol Last Admin: 05/11/20 13:31 Dose: Not Given Documented by: Enteral Nutritional Formula (Nepro Carb Steady) 1,000 mls @ 40 mls/hr GT .Q25H [facility] Last Admin: 05/11/20 11:18 Dose: 40 mls/hr Documented by: Lorazepam (Lorazepam 2 Mg/Ml Syringe) 2 mg IV Q2H PRN PRN PRN Reason: AGITATION Last Admin: 05/08/20 19:46 Dose: 2 mg Documented by: Metoprolol Tartrate (Metoprolol Tartrate 50 Mg Tablet) 50 mg GT BID [facility] Last Admin: 05/11/20 09:17 Dose: 50 mg Documented by: Metoprolol Tartrate (Metoprolol Tartrate 5 Mg/5 Ml Vial) 5 mg IV Q4H PRN PRN Reason: systolic >160 Last Admin: 05/08/20 05:11 Dose: 5 mg Documented by: Miscellaneous Information (Inhaler, Assist Devices 1 Each Spacer) 1 each INHALATION PRN PRN PRN Reason: WITH ALBUTEROL MDI Last Admin: 04/27/20 16:41 Dose: 1 each Documented by: Multi-Ingredient Cream (Petrolatum,White 3.75gm Opth.Tube) 1 applic OPHTHALMIC TID@0600,1200,2200 [facility] Last Admin: 05/11/20 11:19 Dose: 1 applicatio Documented by: Ondansetron HCl (Ondansetron 4 Mg/2 Ml Vial) 4 mg IV Q8H PRN PRN PRN Reason: NAUSEA/VOMITING Last Admin: 05/08/20 22:47 Dose: 4 mg Documented by: Polyethylene Glycol (Polyethylene Glycol 3350 17 Gm Packet) 17 gm GT DAILY [facility] Last Admin: 05/11/20 09:44 Dose: Not Given Documented by: Quetiapine Fumarate (Quetiapine 25 Mg Tablet) 50 mg PO BID [facility] Last Admin: 05/11/20 09:15 Dose: 50 mg Documented by: Senna/Docusate Sodium (Senna/Docusate Sodium 1 Tablet) 2 tablet GT BID [facility] Last Admin: 05/11/20 09:44 Dose: Not Given Documented by: Sodium Chloride (0.9% Saline Lock 10 Ml Syringe) 10 - 40 ml IV UD PRN PRN Reason: SALINE FLUSH Last Admin: 05/11/20 09:22 Dose: 10 ml Documented by: Medical Necessity - Tobacco Use Smoking Status: Never smoker Assessment/Plan All Active Problems Acute respiratory failure with hypoxia (Acute) COVID-19 (Acute) #1 COVID-19 pneumonia-patient completed his treatment for COVID-19 pneumonia #2 acute hypoxic respiratory failure secondary to #1-prognosis is guarded at this time, pulmonary medicine is managing his ventilator settings #3 coronary artery disease #4 essential hypertension #5 paroxysmal atrial fibrillation-patient is on Eliquis chronically #6 morbid obesity #7 Acute renal failure-nephrology is seeing patient, patient is undergoing dialysis today #8 hyperkalemia-nephrology is addressing this #9 sputum culture positive for methicillin sensitive staph aureus-infectious diseases is participating in his care, it appears that the patient is off antibiotics at this time #10 hyperphosphatemia-patient on PhosLo #11 acute respiratory distress syndrome secondary to COVID-19 pneumonia-patient is currently on ventilator, FiO2 is 0.6 Inpatient E&M: 10227 [facility] H[facility] L2
[2020-05-11] MEDS: Heparin 10,000 UNITS/10 ML Vial IV (14:39)
--- NOTE | 2020-05-11 15:09 | DIALYSIS ---
Hemodialysis x2.5 hours completed at 1455 on a 1K bath, tolerated well, UF 1500mL, accessed via right neck temp dialysis catheter, worked well today at BFR of 350, dressing changed pre-tx
[2020-05-11 17:55] LABS: Bedside Glucose 133 mg/dL (70-110)
--- NOTE | 2020-05-11 19:56 | PN.RENAL_ITS ---
Patient Problems: Active and Suspected Problems Acute respiratory failure with hypoxia (Acute) COVID-19 (Acute) Subjective: hyperkalemia this am had to be dialyzed again FiO2 is about the same no pressors today - Physical Exam Vitals/I&O's: Vital Signs Temp Pulse Resp BP Pulse Ox 99 F 85 30 H 145/60 H 96 05/11/20 16:00 05/11/20 19:15 05/11/20 19:15 05/11/20 19:00 05/11/20 19:09 Oxygen Flow Rate (L/min) 60 Oxygen Delivery Method Mechanical Ventilator Weight: 168.1 kg Body Mass Index (BMI) 49.0 Intake and Output for Last 24 Hours 05/09/20 05/10/20 05/11/20 23:59 23:59 23:59 Intake Total 2743.91 / 2761.41 4186.98 / 4367.51 3760.80 / 3760.80 Output Total 190 / 190 2120 / 2120 2410 / 2410 Balance 2553.91 / 2571.41 2066.98 / 2247.51 1350.80 / 1350.80 Comment: exam minimized in view of covid. intubated. Microbiology Past 72 Hours 05/11/20 16:55 Sputum, Induced/Lukens Gram Stain - Preliminary Laboratory Results 05/10/20 20:20: Specimen Type ART, Sample Site R Radial, pH 7.33 L, Bicarbonate Actual 24.4, Total CO2 26, Base Excess -2, O2 Saturation 94 L, O2 % 100, ABG pCO2 46.2 H, ABG pO2 78, Philip Test Positive, Respiration Rate 16, O2 Delivery Device Adult Vent, Vent Mode AC, Tidal Volume 500, POC PEEP 12 05/10/20 23:28: POC Glucose 87 05/11/20 03:40: WBC 13.5 H, RBC 3.30 L, Hgb 9.1 L, Hct 28.0 L, MCV 84.8, MCH 27.6, MCHC 32.5, RDW Std Deviation 45.5 H, RDW Coeff of Citlaly 15.1 H, Plt Count 165, MPV 11.9, Immature Gran % (Auto) 0.800, Neut % (Auto) 91.2 H, Lymph % (Auto) 3.9 L, Scott % (Auto) 3.9, Eos % (Auto) 0.1, Baso % (Auto) 0.1, Absolute Neuts (auto) 12.3 H, Absolute Lymphs (auto) 0.53 L, Nucleated RBC % 0.1 05/11/20 03:40: Sodium 132 L, Potassium 7.0 H*, Chloride 95 L, Carbon Dioxide 24.0, Anion Gap 13, BUN 112 H*, Creatinine 4.50 H, Estim Creat Clear Calc 17.24, Est GFR (MDRD) Af Amer 17 L, Est GFR (MDRD) Non-Af 14 L, BUN/Creatinine Ratio 24.9 H, Glucose 113 H, Calcium 7.3 L, Phosphorus 11.1 H*, Magnesium 2.0 05/11/20 05:30: POC Glucose 124 H 05/11/20 11:22: POC Glucose 105 05/11/20 16:56: POC Glucose 133 H Current Medications Acetaminophen (Acetaminophen 650 Mg/20 Ml Udc) 650 mg GT Q6H PRN PRN PRN Reason: TEMP > 100 Last Admin: 05/10/20 13:09 Dose: 650 mg Documented by: Albuterol Sulfate (Albuterol Sulfate 18 Gm Inhaler (200 Puffs)) 2 puff IH Q4H PRN PRN PRN Reason: Shortness of breath, wheezing Last Admin: 04/27/20 01:30 Dose: 2 puff Documented by: Albuterol/Ipratropium (Ipratropium/Albuterol Sulfate 3 Ml Ampul.Neb) 3 ml INHALATION Q6HWA.RT [facility] Last Admin: 05/11/20 19:14 Dose: 3 ml Documented by: Apixaban (Apixaban 5 Mg Tablet) 5 mg GT BID [facility] Last Admin: 05/11/20 09:15 Dose: 5 mg Documented by: Aspirin (Aspirin 81 Mg Tab.Chew) 81 mg GT DAILY [facility] Last Admin: 05/11/20 09:15 Dose: 81 mg Documented by: Atorvastatin Calcium (Atorvastatin Calcium 40 Mg Tablet) 40 mg GT QHS [facility] Last Admin: 05/10/20 23:10 Dose: 40 mg Documented by: Bupropion HCl (Bupropion 100 Mg Tablet) 150 mg PO BID [facility] Last Admin: 05/11/20 09:15 Dose: 150 mg Documented by: Calamine/Phenol (Menthol/Lanolin/Calamine/Znox 113 Gm Tube) 1 applic TOPICAL TID [facility]; Protocol Last Admin: 05/11/20 09:16 Dose: 1 applicatio Documented by: Chlorhexidine Gluconate (Chlorhexidine 15 Ml) 15 ml PO BID [facility] Last Admin: 05/11/20 09:18 Dose: 15 ml Documented by: Dexamethasone Sodium Phosphate (Dexamethasone 4 Mg/Ml Vial) 6 mg IV QAM [facility] Stop: 05/15/20 10:01 Last Admin: 05/11/20 09:15 Dose: 6 mg Documented by: Guaifenesin (Guaifenesin 10 Ml Udc (200mg/10ml)) 10 ml GT Q4 [facility] Last Admin: 05/11/20 17:02 Dose: 10 ml Documented by: Hydralazine HCl (Hydralazine 20 Mg/Ml Vial) 10 mg IV Q4H PRN PRN PRN Reason: systolic >160 Last Admin: 05/10/20 00:38 Dose: 10 mg Documented by: Sodium Chloride () 250 mls @ 15 mls/hr IV .[id number] PRN PRN Reason: Saline Flush Last Infusion: 05/05/20 04:00 Dose: Infused Documented by: Sodium Chloride () 250 mls @ 15 mls/hr IV .[id number] PRN PRN Reason: Additional IVPB Infusion Pantoprazole Sodium 40 mg/ (Sodium Chloride) 110 mls @ 330 mls/hr IV Q12 [facility] Last Infusion: 05/11/20 10:50 Dose: Infused Documented by: Propofol (Diprivan) 1,000 mg in 100 mls @ 10.086 mls/hr CONT INF .Q9H55M [facility]; Protocol Last Admin: 05/11/20 17:35 Dose: Not Given Documented by: Fentanyl Citrate 1,000 mcg/ (Sodium Chloride) 100 mls @ 5 mls/hr CONT INF .Q20H [facility]; Protocol Last Titration: 05/11/20 19:00 Dose: 200 mcg/hr, 20 mls/hr Documented by: Dexmedetomidine HCl 1,000 mcg/ (Sodium Chloride) 250 mls @ 21.013 mls/hr CONT INF .[id number] [facility]; Protocol Last Titration: 05/11/20 19:00 Dose: 1.5 mcg/kg/hr, 63 mls/hr Documented by: Norepinephrine Bitartrate 8 mg (/ Sodium Chloride) 250 mls @ 9.375 mls/hr CONT INF .[id number] [facility]; Protocol Last Titration: 05/11/20 19:00 Dose: 0 mcg/min, 0 mls/hr Documented by: Enteral Nutritional Formula (Nepro Carb Steady) 1,000 mls @ 40 mls/hr GT .Q25H [facility] Last Admin: 05/11/20 11:18 Dose: 40 mls/hr Documented by: Lorazepam (Lorazepam 2 Mg/Ml Syringe) 2 mg IV Q2H PRN PRN PRN Reason: AGITATION Last Admin: 05/08/20 19:46 Dose: 2 mg Documented by: Metoprolol Tartrate (Metoprolol Tartrate 50 Mg Tablet) 50 mg GT BID [facility] Last Admin: 05/11/20 09:17 Dose: 50 mg Documented by: Metoprolol Tartrate (Metoprolol Tartrate 5 Mg/5 Ml Vial) 5 mg IV Q4H PRN PRN Reason: systolic >160 Last Admin: 05/08/20 05:11 Dose: 5 mg Documented by: Miscellaneous Information (Inhaler, Assist Devices 1 Each Spacer) 1 each INHALATION PRN PRN PRN Reason: WITH ALBUTEROL MDI Last Admin: 04/27/20 16:41 Dose: 1 each Documented by: Multi-Ingredient Cream (Petrolatum,White 3.75gm Opth.Tube) 1 applic OPHTHALMIC TID@0600,1200,2200 [facility] Last Admin: 05/11/20 11:19 Dose: 1 applicatio Documented by: Ondansetron HCl (Ondansetron 4 Mg/2 Ml Vial) 4 mg IV Q8H PRN PRN PRN Reason: NAUSEA/VOMITING Last Admin: 05/08/20 22:47 Dose: 4 mg Documented by: Polyethylene Glycol (Polyethylene Glycol 3350 17 Gm Packet) 17 gm GT DAILY [facility] Last Admin: 05/11/20 09:44 Dose: Not Given Documented by: Quetiapine Fumarate (Quetiapine 25 Mg Tablet) 50 mg PO BID [facility] Last Admin: 05/11/20 09:15 Dose: 50 mg Documented by: Senna/Docusate Sodium (Senna/Docusate Sodium 1 Tablet) 2 tablet GT BID [facility] Last Admin: 05/11/20 09:44 Dose: Not Given Documented by: Sodium Chloride (0.9% Saline Lock 10 Ml Syringe) 10 - 40 ml IV UD PRN PRN Reason: SALINE FLUSH Last Admin: 05/11/20 09:22 Dose: 10 ml Documented by: Medical Necessity - Tobacco Use Smoking Status: Never smoker Assessment/Plan All Active Problems Acute respiratory failure with hypoxia (Acute) COVID-19 (Acute) 1. Acute kidney injury. Baseline creatinine is 1.2 to 1.3 mg/dL. ALBERTO is secondary to ischemic ATN. 2. Hyperkalemia. 3. Acute hypoxic respiratory failure. The patient is ventilator dependent. He is being treated for Covid 19 pneumonia along with bacterial pneumonia. Ventilator management is as per pulmonary/critical care medicine service. Plan remains intubated HD today, able to get some fluid off continue HD as per schedule
[2020-05-11] MEDS: Atorvastatin Calcium 40 MG Tablet GT (21:06)
[2020-05-11] MEDS: Senna/Docusate Sodium 1 Tablet 2 TABLET GT (21:09)
[2020-05-12] VITALS (24 sets, daily range): BP systolic 73–201; BP diastolic 29–108; PULSE 83–125; RESP 16–40; TEMP 37.4–38.4; O2SAT 81–92
[2020-05-12] MEDS: Dexmedetomidine 1,000 mcg in 0.9% NS 240 mL 63 MCG CONT INF ×2 (00:29→04:52)
[2020-05-12] MEDS: guaiFENesin 10 ML UDC (200MG/10ML) GT ×2 (01:08→06:41)
[2020-05-12] MEDS: 0.9% Saline Lock 10 ML Syringe IV ×2 (04:27→13:02)
--- NOTE | 2020-05-12 05:35 | PN_ITS ---
Subjective: The patient was seen and examined at the bedside this morning. Events from the last 24 hours have been reviewed. The patient is currently afebrile, hemodynamically stable and maintaining appropriate oxygen saturations on assist control mode of mechanical ventilation with an FiO2 requirement of 70% and PEEP of 8. The patient tolerated hemodialysis yesterday with 1.5 L of fluid removed. The patient is currently documented to be overall net +23.7 L for the hospital admission. Throughout the day, the patient's respiratory status remained labored. Chest imaging revealed interval worsening. Attempts to provide dialysis support was unsuccessful. The patient's family was updated on the patient's clinic state. Goals of care discussion was undertaken. The patient's family presented to the hospital. At this time, they are requesting a transition to comfort care measures. Objective: The patient's most recent lab work, culture data and imaging studies have all been personally reviewed. Surface echocardiogram from October 2019 revealed moderate concentric LVH with an ejection fraction of 75%. Sputum culture was positive for MSSA. General: - - Remains intubated, sedated and mechanically ventilated. There is increased work of breathing with ventilator dyssynchrony this morning. HEENT: Atraumatic, Normocephalic Oral: No Gingival or Mucosal Lesions/ Ulcerations Neck: Supple, No Nodes, Trachea Midline Lungs: Diminished, Tachypneic Cardiovascular: Regular rate, Regular Rhythm Abdomen: Bowel Sounds Present, Soft, Non Tender, Obese Extremities: No clubbing, No cyanosis, Cool, Edema Skin: No breakdown Musculoskeletal: No Muscle Wasting Lymphatic: No Cervical, Supraclavicular, or Inguinal Adenopathy Neurological: - - No focal neurological deficits. Vital Signs Temp Pulse Resp BP Pulse Ox 99.7 F H 89 30 H 119/56 L 92 05/12/20 02:00 05/12/20 04:00 05/12/20 03:13 05/12/20 02:00 05/12/20 03:13 Oxygen Flow Rate (L/min) 60 Oxygen Delivery Method Mechanical Ventilator Weight: 374 lb 12.573 oz Body Mass Index (BMI) 49.0 Intake and Output for Last 24 Hours 05/10/20 05/11/20 05/12/20 23:59 23:59 23:59 Intake Total 4186.98 / 4367.51 4312.40 / 4520.40 1217.80 / 1217.80 Output Total 2120 / 2120 2410 / 2410 35 / 35 Balance 2066.98 / 2247.51 1902.40 / 2110.40 1182.80 / 1182.80 Labs (Last 48 Hours) 05/10/20 05/10/20 05/10/20 05:00 11:11 17:10 WBC RBC Hgb Hct MCV MCH MCHC RDW Std Deviation RDW Coeff of Citlaly Plt Count MPV Immature Gran % (Auto) Neut % (Auto) Lymph % (Auto) [place] % (Auto) Eos % (Auto) Baso % (Auto) Absolute Neuts (auto) Absolute Lymphs (auto) Nucleated RBC % Specimen Type Sample Site pH Bicarbonate Actual Total CO2 Base Excess O2 Saturation O2 % ABG pCO2 ABG pO2 Philip Test Respiration Rate O2 Delivery Device Vent Mode Tidal Volume POC PEEP Sodium 133 L Potassium 6.7 H* Chloride 95 L Carbon Dioxide 22.0 Anion Gap BUN 153 H* Creatinine 5.36 H Estim Creat Clear Calc 14.48 Est GFR (MDRD) Af Amer 14 L Est GFR (MDRD) Non-Af 11 L BUN/Creatinine Ratio 28.5 H Glucose 118 H Calcium 7.4 L Phosphorus 12.5 H* Magnesium Albumin 1.6 L POC Glucose 110 85 05/10/20 05/10/20 05/11/20 20:20 23:28 03:40 WBC 13.5 H RBC 3.30 L Hgb 9.1 L Hct 28.0 L MCV 84.8 MCH 27.6 MCHC 32.5 RDW Std Deviation 45.5 H RDW Coeff of Citlaly 15.1 H Plt Count 165 MPV 11.9 Immature Gran % (Auto) 0.800 Neut % (Auto) 91.2 H Lymph % (Auto) 3.9 L [place] % (Auto) 3.9 Eos % (Auto) 0.1 Baso % (Auto) 0.1 Absolute Neuts (auto) 12.3 H Absolute Lymphs (auto) 0.53 L Nucleated RBC % 0.1 Specimen Type ART Sample Site R Radial pH 7.33 L Bicarbonate Actual 24.4 Total CO2 26 Base Excess -2 O2 Saturation 94 L O2 % 100 ABG pCO2 46.2 H ABG pO2 78 Philip Test Positive Respiration Rate 16 O2 Delivery Device Adult Vent Vent Mode AC Tidal Volume 500 POC PEEP 12 Sodium Potassium Chloride Carbon Dioxide Anion Gap BUN Creatinine Estim Creat Clear Calc Est GFR (MDRD) Af Amer Est GFR (MDRD) Non-Af BUN/Creatinine Ratio Glucose Calcium Phosphorus Magnesium Albumin POC Glucose 87 05/11/20 05/11/20 05/11/20 03:40 05:30 11:22 WBC RBC Hgb Hct MCV MCH MCHC RDW Std Deviation RDW Coeff of Citlaly Plt Count MPV Immature Gran % (Auto) Neut % (Auto) Lymph % (Auto) [place] % (Auto) Eos % (Auto) Baso % (Auto) Absolute Neuts (auto) Absolute Lymphs (auto) Nucleated RBC % Specimen Type Sample Site pH Bicarbonate Actual Total CO2 Base Excess O2 Saturation O2 % ABG pCO2 ABG pO2 Philip Test Respiration Rate O2 Delivery Device Vent Mode Tidal Volume POC PEEP Sodium 132 L Potassium 7.0 H* Chloride 95 L Carbon Dioxide 24.0 Anion Gap 13 BUN 112 H* Creatinine 4.50 H Estim Creat Clear Calc 17.24 Est GFR (MDRD) Af Amer 17 L Est GFR (MDRD) Non-Af 14 L BUN/Creatinine Ratio 24.9 H Glucose 113 H Calcium 7.3 L Phosphorus 11.1 H* Magnesium 2.0 Albumin POC Glucose 124 H 105 05/11/20 16:56 WBC RBC Hgb Hct MCV MCH MCHC RDW Std Deviation RDW Coeff of Citlaly Plt Count MPV Immature Gran % (Auto) Neut % (Auto) Lymph % (Auto) [place] % (Auto) Eos % (Auto) Baso % (Auto) Absolute Neuts (auto) Absolute Lymphs (auto) Nucleated RBC % Specimen Type Sample Site pH Bicarbonate Actual Total CO2 Base Excess O2 Saturation O2 % ABG pCO2 ABG pO2 Philip Test Respiration Rate O2 Delivery Device Vent Mode Tidal Volume POC PEEP Sodium Potassium Chloride Carbon Dioxide Anion Gap BUN Creatinine Estim Creat Clear Calc Est GFR (MDRD) Af Amer Est GFR (MDRD) Non-Af BUN/Creatinine Ratio Glucose Calcium Phosphorus Magnesium Albumin POC Glucose 133 H Microbiology 05/11/20 16:55 Sputum, Induced/Lukens Gram Stain - Preliminary Clinical Impression(s) from Imaging Studies Chest X-Ray 04/25/20 20:54 IMPRESSION: 1. Vascular congestion and interstitial edema, new since the prior study. Electronically Signed: Eduardo Figueroa MD ([place]) at 21:50 EST , Service support , Chest X-Ray 04/28/20 07:45 IMPRESSION: Stable exam. Vascular congestion with interstitial edema favoring pulmonary edema although pneumonia including viral causes also possible. Electronically Signed: Eduardo Figueroa MD (Bro[facility]) at 8:06 EST , Service support , Chest X-Ray 04/29/20 08:31 IMPRESSION: 1. Suboptimal placement of endotracheal tube with tip terminating at the first rib. Recommend advancing 4-5 cm. 2. Worsening congestion with interstitial edema favoring pulmonary edema although pneumonia including viral causes also possible. Electronically Signed: Eduardo Figueroa MD ([place]) at 9:39 EST , Service support , Chest X-Ray 04/29/20 08:52 IMPRESSION: 1. Persistent suboptimal placement of endotracheal tube with tip terminating at the first rib. Recommend advancing 4-5 cm. 2. Worsening vascular congestion with interstitial edema favoring pulmonary edema although pneumonia (including viral causes) also possible. Electronically Signed: Eduardo Figueroa MD ([place]) at 9:41 EST , Service support , Chest X-Ray 04/29/20 09:50 IMPRESSION: 1. Endotracheal tube in satisfactory position with tip 3.5 cm above the yisel 2. Less conspicuous (since earlier today) vascular congestion with interstitial edema favoring pulmonary edema although pneumonia (including viral causes) also possible. Electronically Signed: Eduardo Figueroa MD ([place]) at 10:20 EST , Service support , Chest X-Ray 04/29/20 10:11 IMPRESSION: 1. Endotracheal tube terminates with tip 2.2 cm above the yisel 2. Similar vascular congestion with interstitial edema favoring pulmonary edema although pneumonia (including viral causes) also possible. Electronically Signed: Eduardo Figueroa MD ([place]) at 10:35 EST , Service support , Chest X-Ray 05/05/20 12:30 IMPRESSION: Improved aeration of both lungs. The support tubes are in good position. Electronically Signed: Shar Abraham, at 14:18 EST , Service support , Chest X-Ray 05/05/20 13:20 IMPRESSION: Stable airspace and interstitial opacifications in both lung lucero. Stable appearance of the support lines and tubes, no complications Right IJ central venous catheter has been placed since the previous study, tip is in the mid SVC Electronically Signed: Tobin Jensen MD at 14:45 EST , Service support , Renal Ultrasound 05/05/20 17:25 IMPRESSION: Very limited by patient''s size and bowel gas. No gross acute abnormalities of the kidneys. Electronically Signed: Delfin Nova MD at 21:01 EST , Service support , Chest X-Ray 05/06/20 12:16 IMPRESSION: Stable examination. Interval placement of a left central catheter with the tip at the junction of the superior vena cava and left brachiocephalic vein. Electronically Signed: Shar Abraham, at 12:35 EST , Service support , Chest X-Ray 05/08/20 21:55 IMPRESSION: The left subclavian central venous catheter likely has been slightly pulled back. It likely terminates in the left brachiocephalic vein, but on these projections provided it cannot be excluded from terminating within the aorta. On the previous study it was better demonstrated to likely be within the left brachiocephalic vein, with the patient in less rotation and more optimal presentation for suggesting tip position of the left subclavian catheter Diffuse lung disease unchanged. at 2228 Reported and signed by: Pito Almendarez MD Electronically Signed: Pito Almendarez MD at 22:27 EST Tel , Service support , Chest X-Ray 05/10/20 20:20 IMPRESSION: Bilateral patchy infiltrates. Electronically Signed: Ignacio Houston DO at 21:33 EST Tel [phone], Service support , Brain CT 05/10/20 20:57 IMPRESSION: No acute intracranial pathology of the brain. Paranasal sinus disease. Electronically Signed: Ignacio Houston DO at 23:23 EST Tel [phone], Service support , Medical Necessity - Tobacco Use Smoking Status: Never smoker Assessment/Plan All Active Problems Acute respiratory failure with hypoxia (Acute) COVID-19 (Acute) RECOMMENDATIONS: 1. Continue current sedation regimen. 2. Make attempt at dialysis today with fluid removal. 3. Vasopressors can be utilized in order to facilitate fluid removal with dialysis. 4. Continue patient on assist control and wean FiO2 to maintain oxygen saturations at or above 90%. 5. Given further clinical decompensation, will start broad-spectrum antimicrobials once again. 6. Continue Decadron as ordered. 7. Continue appropriate GI prophylaxis. 8. Continue tube feeds as ordered. IMPRESSIONS: 1. Acute hypoxemic respiratory failure secondary to ARDS due to COVID-19/MSSA pneumonia The patient was initially diagnosed 1 week prior to hospital admission. Although attempts were made to utilize high flow oxygen and noninvasive positive pressure ventilatory support, the patient continued to decompensate from a respiratory perspective, requiring transfer to ICU and subsequent intubation on April 29. The patient has gone on to develop fulminant ARDS with high ventilator requirements. The patient has completed a treatment course of remdesivir and will remain on Decadron. The patient completed a treatment course of antimicrobials for MSSA pneumonia as well. However, despite the aforementioned interventions, the patient continued to decompensate from a cl inical perspective. Attempts at volume optimization were undertaken with dialysis. Nevertheless, following a family discussion on May 12, following further clinical decompensation, the decision was made to transition the patient to comfort care measures. 2. ALBERTO on CKD Continue dialysis support per nephrology recommendations. Attempt volume removal today with vasopressor support, if clinically indicated. 3. Obesity/hypertension/hyperlipidemia/paroxysmal atrial fibrillation/coronary artery disease/GERD Complicates care, management, recovery and prognosis. Continue home medications as indicated. CODE status: Discussed CODE status at length including difference between FULL code, DNR-CCA and DNR-CC status. Following discussions about the differences in these status, patient's family requested DNR-CC CODE STATUS. Advanced Care Planning Face to Face Time: 38 minutes TIME: 85 minutes of critical care time, independent of procedures, was spent addressing the patient's acute hypoxemic respiratory failure secondary to ARDS due to COVID-19 pneumonia, paroxysmal atrial fibrillation, coronary artery dis ease, ALBERTO, goals of care discussion, review of all data and collaboration with care team. ([id number], [id number]) Procedures: 29379 Critial Care Addl 30 Min 9xxxx: [id number] Critical care first hour
[2020-05-12] MEDS: Petrolatum,White 3.75GM OPTH.TUBE 1 APPLIC OPHTHALMIC (06:40)
[2020-05-12] MEDS: Menthol/Lanolin/Calamine/Znox 113 GM Tube 1 APPLIC TOPICAL (06:40)
[2020-05-12] MEDS: TITRATION PARAMETER CHANGE 1 EACH IV (06:42)
[2020-05-12] MEDS: Ipratropium/Albuterol Sulfate 3 ML AMPUL.NEB INHALATION (06:56)
--- NOTE | 2020-05-12 07:15 | PCM.PN.HOSP ---
Patient Problems: Active and Suspected Problems Acute respiratory failure with hypoxia (Acute) COVID-19 (Acute) Reason for Visit: Cute COVID-19 pneumonia Acute kidney injury Acute respiratory failure Subjective: Patient is a 69-year-old male on admission for 17 days with COVID-19 pneumonia. Objective: GENERAL: On The vent HEENT: Atraumatic; EYES; Anicteric, Normal Conjunctiva NECK; supple, normal thyroid, RESPIRATORY: Diminished to auscultation CARDIOVASCULAR: Regular S1 S2, GI: soft, normoactive bowel sounds, : No Renal angle tenderness; EXTREMITIES: Edema involving both upper and lower extremities MUSCULOSKELETAL: no muscle waisting NEURO: OnThe vent SKIN: No Rash PSYCH; Flat affect Vitals/I&O's: Vital Signs Temp Pulse Resp BP Pulse Ox 99.5 F H 94 36 H 138/70 H 90 05/12/20 06:00 05/12/20 06:00 05/12/20 06:00 05/12/20 06:00 05/12/20 06:00 Oxygen Flow Rate (L/min) 60 Oxygen Delivery Method Mechanical Ventilator Weight: 170 kg Body Mass Index (BMI) 49.0 Intake and Output for Last 24 Hours 05/10/20 05/11/20 05/12/20 23:59 23:59 23:59 Intake Total 4186.98 / 4367.51 4312.40 / 4520.40 1661.93 / 1661.93 Output Total 2120 / 2120 2410 / 2410 105 / 105 Balance 2066.98 / 2247.51 1902.40 / 2110.40 1556.93 / 1556.93 Microbiology Past 72 Hours 05/11/20 16:55 Sputum, Induced/Lukens Gram Stain - Preliminary Laboratory Results 05/11/20 11:22: POC Glucose 105 05/11/20 16:56: POC Glucose 133 H Current Medications Acetaminophen (Acetaminophen 650 Mg/20 Ml Udc) 650 mg GT Q6H PRN PRN PRN Reason: TEMP > 100 Last Admin: 05/10/20 13:09 Dose: 650 mg Documented by: Albuterol Sulfate (Albuterol Sulfate 18 Gm Inhaler (200 Puffs)) 2 puff IH Q4H PRN PRN PRN Reason: Shortness of breath, wheezing Last Admin: 04/27/20 01:30 Dose: 2 puff Documented by: Albuterol/Ipratropium (Ipratropium/Albuterol Sulfate 3 Ml Ampul.Neb) 3 ml INHALATION Q6HWA.RT [facility] Last Admin: 05/12/20 06:56 Dose: 3 ml Documented by: Apixaban (Apixaban 5 Mg Tablet) 5 mg GT BID [facility] Last Admin: 05/11/20 21:05 Dose: 5 mg Documented by: Aspirin (Aspirin 81 Mg Tab.Chew) 81 mg GT DAILY [facility] Last Admin: 05/11/20 09:15 Dose: 81 mg Documented by: Atorvastatin Calcium (Atorvastatin Calcium 40 Mg Tablet) 40 mg GT QHS [facility] Last Admin: 05/11/20 21:06 Dose: 40 mg Documented by: Bupropion HCl (Bupropion 100 Mg Tablet) 150 mg PO BID [facility] Last Admin: 05/11/20 21:10 Dose: 150 mg Documented by: Calamine/Phenol (Menthol/Lanolin/Calamine/Znox 113 Gm Tube) 1 applic TOPICAL TID [facility]; Protocol Last Admin: 05/12/20 06:40 Dose: 1 applicatio Documented by: Chlorhexidine Gluconate (Chlorhexidine 15 Ml) 15 ml PO BID [facility] Last Admin: 05/11/20 21:04 Dose: 15 ml Documented by: Dexamethasone Sodium Phosphate (Dexamethasone 4 Mg/Ml Vial) 6 mg IV QAM [facility] Stop: 05/15/20 10:01 Last Admin: 05/11/20 09:15 Dose: 6 mg Documented by: Guaifenesin (Guaifenesin 10 Ml Udc (200mg/10ml)) 10 ml GT Q4 [facility] Last Admin: 05/12/20 06:41 Dose: 10 ml Documented by: Hydralazine HCl (Hydralazine 20 Mg/Ml Vial) 10 mg IV Q4H PRN PRN PRN Reason: systolic >160 Last Admin: 05/10/20 00:38 Dose: 10 mg Documented by: Sodium Chloride () 250 mls @ 15 mls/hr IV .[id number] PRN PRN Reason: Saline Flush Last Infusion: 05/05/20 04:00 Dose: Infused Documented by: Sodium Chloride () 250 mls @ 15 mls/hr IV .[id number] PRN PRN Reason: Additional IVPB Infusion Last Admin: 05/12/20 04:53 Dose: 15 mls/hr Documented by: Pantoprazole Sodium 40 mg/ (Sodium Chloride) 110 mls @ 330 mls/hr IV Q12 [facility] Last Infusion: 05/11/20 22:37 Dose: Infused Documented by: Propofol (Diprivan) 1,000 mg in 100 mls @ 10.2 mls/hr CONT INF .[id number] [facility]; Protocol Last Admin: 05/12/20 06:42 Dose: Not Given Documented by: Fentanyl Citrate 1,000 mcg/ (Sodium Chloride) 100 mls @ 5 mls/hr CONT INF .Q20H [facility]; Protocol Last Titration: 05/12/20 06:00 Dose: 200 mcg/hr, 20 mls/hr Documented by: Dexmedetomidine HCl 1,000 mcg/ (Sodium Chloride) 250 mls @ 21.25 mls/hr CONT INF .[id number] [facility]; Protocol Last Titration: 05/12/20 06:00 Dose: 1.5 mcg/kg/hr, 63.8 mls/hr Documented by: Norepinephrine Bitartrate 8 mg (/ Sodium Chloride) 250 mls @ 9.375 mls/hr CONT INF .[id number] [facility]; Protocol Last Titration: 05/12/20 06:00 Dose: 0 mcg/min, 0 mls/hr Documented by: Enteral Nutritional Formula (Nepro Carb Steady) 1,000 mls @ 40 mls/hr GT .Q25H [facility] Last Admin: 05/11/20 11:18 Dose: 40 mls/hr Documented by: Lorazepam (Lorazepam 2 Mg/Ml Syringe) 2 mg IV Q2H PRN PRN PRN Reason: AGITATION Last Admin: 05/08/20 19:46 Dose: 2 mg Documented by: Metoprolol Tartrate (Metoprolol Tartrate 50 Mg Tablet) 50 mg GT BID [facility] Last Admin: 05/11/20 21:06 Dose: 50 mg Documented by: Metoprolol Tartrate (Metoprolol Tartrate 5 Mg/5 Ml Vial) 5 mg IV Q4H PRN PRN Reason: systolic >160 Last Admin: 05/08/20 05:11 Dose: 5 mg Documented by: Miscellaneous Information (Inhaler, Assist Devices 1 Each Spacer) 1 each INHALATION PRN PRN PRN Reason: WITH ALBUTEROL MDI Last Admin: 04/27/20 16:41 Dose: 1 each Documented by: Multi-Ingredient Cream (Petrolatum,White 3.75gm Opth.Tube) 1 applic OPHTHALMIC TID@0600,1200,2200 [facility] Last Admin: 05/12/20 06:40 Dose: 1 applicatio Documented by: Ondansetron HCl (Ondansetron 4 Mg/2 Ml Vial) 4 mg IV Q8H PRN PRN PRN Reason: NAUSEA/VOMITING Last Admin: 05/08/20 22:47 Dose: 4 mg Documented by: Polyethylene Glycol (Polyethylene Glycol 3350 17 Gm Packet) 17 gm GT DAILY [facility] Last Admin: 05/11/20 09:44 Dose: Not Given Documented by: Quetiapine Fumarate (Quetiapine 25 Mg Tablet) 50 mg PO BID [facility] Last Admin: 05/11/20 21:09 Dose: 50 mg Documented by: Senna/Docusate Sodium (Senna/Docusate Sodium 1 Tablet) 2 tablet GT BID [facility] Last Admin: 05/11/20 21:09 Dose: 2 tablet Documented by: Sodium Chloride (0.9% Saline Lock 10 Ml Syringe) 10 - 40 ml IV UD PRN PRN Reason: SALINE FLUSH Last Admin: 05/12/20 04:27 Dose: 20 ml Documented by: STROKE Vital Signs/Narrative: Vital Signs Temp Pulse Resp BP Pulse Ox 05/12/20 06:00 99.5 F H 94 36 H 138/70 H 90 05/12/20 05:00 99.7 F H 95 37 H 134/54 H 90 05/12/20 04:00 99.6 F H 90 35 H 146/58 H 90 Medical Necessity - Tobacco Use Smoking Status: Never smoker Assessment/Plan All Active Problems Acute respiratory failure with hypoxia (Acute) COVID-19 (Acute) Patient is a 69-year-old male on admission for 17 days with COVID-19 pneumonia. 1. Acute hypoxic respiratory failure ?Secondary to Covid 19 pneumonia patient currently being managed on the vent vent management deferred to pulmonary medicine 2. MRSA pneumonia ?Complicating patient acute hypoxic respiratory failure ID on consult managing antibiotic therapy 3. Acute kidney injury ?Patient currently being dialyzed 4. Hypertension - Blood pressure controlled, home medications continued with dose adjustment as needed 5. Paroxysmal A. fib ?Rate controlled on systemic anticoagulation with Eliquis 6. Coronary artery disease ?Per history 7. Morbid obesity ?With BMI of 50.8 8. Hyperkalemia -Treated with dialysis 9. Hyperphosphatemia ?Placed on PhosLo 10. Dyslipidemia -Patient is on statin therapy, continued at home dose 11. DVT prophylaxis ?On [facility] Inpatient E&M: [id number] [facility] Hosp L3
[2020-05-12 07:54] LABS: Absolute Lymphocyte Count 0.49 X10^3/uL (0.83-4.51); Absolute Neutrophil Count 7.1 X10^3/uL (2.0-7.7); Basophil# 0.02 X10^3/uL; Basophil% 0.2 % (0-1); Eosinophil# 0.04 X10^3/uL; Eosinophils% 0.5 % (0-5); Hematocrit 26.4 % (40-54); Hemoglobin 8.4 g/dL (13.0-16.5); Lymphocyte # 0.49 X10^3/ul (4.0); Lymphocyte % 5.9 % (19-41); Mean Corp Hgb Conc 31.8 g/dL (32-36); Mean Corpuscular Hgb 27.3 pg (27.0-32.0); Mean Corpuscular Volume 85.7 fL (80-94); Monocyte# 0.52 X10^3/uL; Monocyte% 6.3 % (0-10); NRBC Flagged by Analyzer 0 % (0-5); Neutrophil % 86.3 % (47-70); POSITIVE DIFFERENTIAL YES; POSITIVE MORPHOLOGY YES; Platelet Count 169 K/mm3 (150-450); RBC Distribution Width CV 15.4 % (11.6-14.6); RBC Distribution Width SD 46.6 fl (35.1-43.9); Red Blood Count 3.08 M/mm3 (4.6-6.2); White Blood Count 8.2 K/mm3 (4.4-11.0)
[2020-05-12 07:59] LABS: Differential Indicated SCAN CRITERIA MET
[2020-05-12 08:02] LABS: ALB/GLOB Ratio 0.3 RATIO (0.9-2.4); AST(SGOT) 144 U/L (15-37); Alanine Aminotransfer ALT/SGPT 91 U/L (16-61); Albumin, Serum 1.3 g/dL (3.2-5.0); Alkaline Phosphatase 86 U/L (45-117); Anion Gap 11 (5-15); BUN 102 mg/dL (7-18); BUN/Creat Ratio 24.2 RATIO (10-20); Calcium,Total 7.8 mg/dL (8.5-10.1); Chloride 95 mmol/L (98-107); Creatinine, Serum 4.22 mg/dL (0.70-1.30); EST Glomerular Filtration Rate 15 mL/min (>60); Est Glom Filt Rate - Afr Amer 18 mL/min (>60); Estimated Creatinine Clearance 18.39 ml/min; Globulin 4.9 g/dL (2.2-4.2); Glucose 101 mg/dL (74-106); Magnesium 2.1 mg/dL (1.6-2.6); Potassium 6.4 mmol/L (3.5-5.1); Protein, Total 6.2 g/dL (6.4-8.2); Sodium Level 131 mmol/L (136-145)
[2020-05-12 08:17] LABS: Magnesium 2.2 mg/dL (1.6-2.6); Phosphorus 10.9 mg/dL (2.5-4.9)
--- NOTE | 2020-05-12 08:50 | RAD_ITS ---
STUDY: X-RAY CHEST REASON FOR EXAM: Male, 69 years old. SOB -- LINE PLACEMENT TECHNIQUE: Single AP portable view of the chest. COMPARISON: Comparison is made with prior study dated 05/10/2020. FINDINGS: An endotracheal tube is in situ. The tip is at 2.7 sinus possible the yisel. Endogastric tube is seen with the tip in the stomach. EKG electrodes are seen. A left-sided subclavian line is seen with the tip in the midportion of the left subclavian vein heading caudally this is unchanged. Since prior study, there has been progressive bilateral pulmonary infiltrates. This is worse in the left hemithorax. There is blunting of the left costophrenic angle. Sternal cerclage wires and vascular clips are present from a prior sternotomy and coronary artery bypass graft procedure (CABG). Normal mediastinum and katie. Normal visualized pulmonary arteries. There is atherosclerotic calcification of the aortic arch with tortuosity. There are degenerative changes of the visualized thoracic spine. Normal visualized ribs, clavicles, and shoulders. There is no demonstrated abnormality of the visualized soft tissue structures of the upper abdomen. RAD/Chest 1 View (Portable) IMPRESSION: Progressive bilateral ulnar infiltrates as compared to prior study. Electronically Signed: Shar Abraham, at 9:15 EST , Service support ,
[2020-05-12] MEDS: Dexmedetomidine 1,000 mcg in 0.9% NS 240 mL 63.8 MCG CONT INF (09:00)
--- NOTE | 2020-05-12 11:19 | NURSING ---
Discussed with Dr Zaman pt's current condition. 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 Dr Zaman assessed pt. Krista was called and notified of poor condition. She does not want pt to be suffering and wants to withdrawal care. Much emotional support was given. She will notify family and will be in to visit for end of life.
--- NOTE | 2020-05-12 12:01 | NURSING ---
Pt's Krista, daughter Chastity and sister Aubrie are visiting with pt. Dialysis ended early due plan for withdrawal of care.
--- NOTE | 2020-05-12 12:21 | CASEMGMT ---
SW spoke w/pt's , daughter, sister, support offered. SW remains available for support to family. MITESH Olivier
--- NOTE | 2020-05-12 12:35 | NURSING ---
Propofol GTT started per Dr Zaman verbal order.
[2020-05-12] MEDS: LORazepam 2 MG/ML Syringe IV (12:52)
[2020-05-12] MEDS: Morphine 4 MG/ML Syringe IV (12:52)
--- NOTE | 2020-05-12 13:03 | NURSING ---
Pt's 3 daughters are now visiting.
--- NOTE | 2020-05-12 13:46 | NURSING ---
Pt extubated at 1330. Time of pronounced by Dr Zaman at 1343.
--- NOTE | 2020-05-12 13:46 | CHAPLAIN ---
Type of Pastoral Visit ___ Initial Visit ___ Follow-up Visit ___ On-call Visit ___ General Patient Visit ___ Spiritual Assessment ___ Family Conference ___ Bereavement ___ Rapid Response ___ Code Blue _x__ Other (describe below) Pastoral Care Referral From ___ Patient ___ Family _x__ Nurse ___ Physician ___ Upper Stitcher ___ Machinist Linotype ___ Other (describe below) Sacrament/Intervention ___ Active listening ___ Anointing ___ Jehovah'S Witness ___ Bereavement ___ Communion ___ Ledy exploration ___ ___ Life review _x__ Prayer ___ Reconciliation ___ Sacrament of Sick _x__ Supportive presence ___ Wedding ___ Other (describe below) Pastoral Comments family has been called into hospital to see patient who has declined in condition; met with six family members and gave presence and prayer support;
--- NOTE | 2020-05-12 13:52 | PCM.DEATH ---
Preliminary Cause of Acute COVID-19 pneumonia Date of Admission: 04/25/20 Date of : 05/12/20 - Principle Diagnosis Acute COVID-19 pneumonia Acute hypoxic respiratory failure Acute kidney injury MRSA pneumonia Problem List: Active and Suspected Problems Acute respiratory failure with hypoxia (Acute) COVID-19 (Acute) Hospital Course Patient is a 69-year-old gentleman admitted with progressive shortness of breath diagnosed with acute COVID-19 pneumonia. Patient hospital stay complicated by development of acute hypoxic respiratory failure resulting in patient being intubated and managed on the vent. Patient hospital stay also complicated by MRSA pneumonia for which patient was managed on appropriate antibiotic therapy. Patient developed acute kidney injury with subsequent complications including hyperphosphatemia as well as hyperkalemia nephrology consulted patient was dialyzed. Despite patient being on optimal treatment his clinical condition continued to deteriorate. Discussions were held with patient decision was made to terminally wean patient off the vent. Patient seized spontaneous breathing and was with a heart tones and was pronounced on on 05/12/2020 at 1343 Inpatient E&M: [id number] [facility]
--- NOTE | 2020-05-12 14:22 | DIALYSIS ---
1150-HD discontinue after 1 hour. Pt is unstable. Family changed pt to [facility]-A. Dr. Moore was notified. Catheter closed with 0.9% NS. Caps placed. Dressing is dry and intact. See tx sheet for more details. Report was given to ALFREDO Saul.
--- NOTE | 2020-05-12 14:41 | CPS ---
Withdrawal of care
--- NOTE | 2020-05-12 16:35 | CHAPLAIN ---
Type of Pastoral Visit ___ Initial Visit ___ Follow-up Visit ___ On-call Visit ___ General Patient Visit ___ Spiritual Assessment ___ Family Conference _x__ Bereavement ___ Rapid Response ___ Code Blue ___ Other (describe below) Pastoral Care Referral From ___ Patient ___ Family ___ Nurse ___ Physician ___ Photo Tech ___ Manager [employer] _x__ Other (describe below) Sacrament/Intervention ___ Active listening ___ Anointing ___ Sikhism ___ Bereavement ___ Communion ___ Ledy exploration ___ ___ Life review ___ Prayer ___ Reconciliation ___ Sacrament of Sick _x__ Supportive presence ___ Wedding ___ Other (describe below) Pastoral Comments return to be with family and offer a white carnation in sympathy; presence and listening to family before their departure
--- NOTE | 2020-05-12 16:54 | NURSING ---
1330- total of 8mg Morphine & 4mg Ativan given per Dr Zaman order. Verified w/ALFREDO Mac at bedside. 1335- total of 2mg Morphine & 2mg Ativan given per DR Zaman order. Verified w/Estefania RN at bedside.
== END 2020-05-12 13:43 | DRG 207 ==
LOC: ED 22:05 → MS2 22:35 → ICU 04-29 05:56
PROVIDERS: Family Medicine; Internal Medicine; Internal Medicine Critical Care Medicine; Internal Medicine Infectious Disease; Internal Medicine Nephrology; Admitting Provider Hospitalist; Emergency Provider Emergency Medicine; PCP Family Medicine; Visit Provider Internal Medicine
DX: U07.1 COVID-19 (principal); J15.212 Pneumonia due to Methicillin resistant Staphylococcus aureus; J12.82 Pneumonia due to coronavirus disease 2019; J96.01 Acute respiratory failure with hypoxia; J15.211 Pneumonia due to Methicillin susceptible Staphylococcus aureus; J80 Acute respiratory distress syndrome; N17.0 Acute kidney failure with tubular necrosis; Z68.43 Body mass index [BMI] 50.0-59.9, adult; E87.2 Acidosis; E87.5 Hyperkalemia; E83.39 Other disorders of phosphorus metabolism; E66.01 Morbid (severe) obesity due to excess calories; I95.9 Hypotension, unspecified; R79.89 Other specified abnormal findings of blood chemistry; E86.0 Dehydration; E78.5 Hyperlipidemia, unspecified; F32.9 Major depressive disorder, single episode, unspecified; F41.9 Anxiety disorder, unspecified; I25.10 Atherosclerotic heart disease of native coronary artery without angina pectoris; I35.0 Nonrheumatic aortic (valve) stenosis; I48.0 Paroxysmal atrial fibrillation; I16.0 Hypertensive urgency; K21.9 Gastro-esophageal reflux disease without esophagitis; I10 Essential (primary) hypertension; N18.30 Chronic kidney disease, stage 3 unspecified; Z79.01 Long term (current) use of anticoagulants; Z95.1 Presence of aortocoronary bypass graft; Z95.2 Presence of prosthetic heart valve; Z79.899 Other long term (current) drug therapy
CPT/HCPCS: 31500; 31720; 36415; 36600; 70450; 71045; 76770; 80048; 80053; 80069; 80076; 81001; 82550; 82570; 82803; 82962; 83605; 83735; 83880; 84100; 84132; 84145; 84300; 84478; 84484; 85014; 85018; 85025; 85027; 85384; 85610; 86704; 86706; 87040; 87070; 87077; 87186; 87205; 87340; 87633; 87641; 90937; 93005; 94002; 94003; 94640; 94660; 97110; 97162; 97166; 97802; 97803; 99251; 99285; J7040; J7050; J7120; A4216; C1751; C1752; G0257; G0463; J1940; J2405; J3010